=== PATIENT | male | born 1945 | race Caucasian/White ===

== ENCOUNTER 2017-01-25 21:47 | Emergency (ER) | payer MEDICARE, OTHER ==
[~2017-01-25] VITALS: Ht 177.8 cm; Wt 100.7 kg
[~2017-01-25 21:47] MED LIST: CITA20TA5 PO; CRESTOR20 MG PO; DICL75TA PO; FISH1CAP PO; FLUT50DI IH; GLIM1TAB2 PO; GLUC100018 PO; GLUC1TAB26 PO; HYDR25TA9 PO; LOSA100T6 PO; METF10002 PO; METF100P4 MC; METO100T2 PO; MULT1TAB52 PO; NIFE90TA9 PO; NITR0.4T SL; POTA10TA10 PO; SILD100T PO; TAMS0.4C2 PO; VITA1TAB19 PO
[2017-01-25 21:52] VITALS: BP 171/86
--- NOTE | 2017-01-25 22:22 | PHYS DOC ---
Past Medical History Past Medical History: Hypertension, Other Additional Past Medical Histor: BLIND IN RIGHT EYE, CANCER BEHIND R EYE Past Surgical History: Other Additional Past Surgical Histo: CARDIAC STENT Alcohol Use: Rarely Drug Use: None Adult General Chief Complaint Chief Complaint: HIP PAIN HPI HPI Patient is a 71 year old male history of sciatica, presents emergency room tonight with complaint that he is having persistent pain in the posterior aspect of his right hip that radiates down his right leg. Patient is due to see a foxing painter on Friday. He states that he had been prescribed hydrocodone to help with the pain. He states the hydrocodone is not been managing the pain. He states he does have a history of diabetes. He has not been on any steroids for this. I'll anesthesia or incontinence of urine and bowel. Review of Systems Review of Systems Constitutional: Denies fever or chills [] Eyes: Denies change in visual acuity, redness, or eye pain [] HENT: Denies nasal congestion or sore throat [] Respiratory: Denies cough or shortness of breath [] Cardiovascular: No additional information not addressed in HPI [] GI: Denies abdominal pain, nausea, vomiting, bloody stools or diarrhea [] : Denies dysuria or hematuria [] Musculoskeletal: Denies back pain or joint pain [] Integument: Denies rash or skin lesions [] Neurologic: Denies headache, focal weakness or sensory changes [] Endocrine: Denies polyuria or polydipsia [] Current Medications Current Medications Current Medications Medications (Trade) Dose Ordered Sig/[facility] Start Time Stop Time Status Last Admin Dose Admin Morphine Sulfate 10 mg 1X ONCE 01/25/17 23:00 01/25/17 23:01 01/25/17 22:26 10 MG Allergies Allergies Allergies Coded Allergies Type Severity Reaction Last Updated Verified Iodinated Contrast Media - Oral and Allergy Severe 09/11/15 Yes Penicillins Allergy Intermediate 03/16/14 Yes tomato Allergy Intermediate 09/11/15 Yes Physical Exam Physical Exam Constitutional: Well developed, well nourished,mild distress, non-toxic appearance. HENT: Normocephalic, atraumatic, bilateral external ears normal, oropharynx moist, no oral exudates, nose normal. [] Eyes: PERRLA, EOMI, conjunctiva normal, no discharge. [] Neck: Normal range of motion, no tenderness, supple, no stridor. [] Cardiovascular:Heart rate regular rhythm, no murmur [] Lungs & Thorax: Bilateral breath sounds clear to auscultation [] Abdomen: Bowel sounds normal, soft, no tenderness, no masses, no pulsatile masses. [] Skin: Warm, dry, no erythema, no rash. [] Back: Back and posterior right hip are normal in appearance without any skin lesions suggestive of shingles. There is tenderness to palpation of the patient' s back. There is tenderness to palpation at the level of S1 and S2 projecting laterally into the right buttocks. There is no palpable defect, deformity or spasm. Extremities: No tenderness, no cyanosis, no clubbing, ROM intact, no edema. [] Neurologic: Alert and oriented X 3, normal motor function, normal sensory function, no focal deficits noted. [] Psychologic: Affect normal, judgement normal, mood normal. [] Current Patient Data Vital Signs Vital Signs Date Time Temp Pulse Resp B/P Pulse Ox O2 Delivery O2 Flow Rate FiO2 01/25/17 22:26 16 98 Room Air 01/25/17 21:52 97.7 77 97.7 EKG EKG [] Radiology/Procedures Radiology/Procedures [] Course & Med Decision Making Course & Med Decision Making Patient is able to do with the [place] tablets that he currently has. I advised him that he can either use them at times from baseline pain or flush them down the toilet. He has been well advised not to combine pain medications together. Dragon Disclaimer Dragon Disclaimer This electronic medical record was generated, in whole or in part, using a voice recognition dictation system. Departure Departure Impression: Primary Impression: Sciatica Disposition: 01 HOME, SELF-CARE Condition: GOOD Referrals: FEDERICO WISE MD (PCP) Patient Instructions: Lumbosacral Radiculopathy Additional Instructions: 1. Take the medication as prescribed. Do not combine pain medications together as this can affect her heart and lung function and causing overdose. 2. Patient really review the discharge instructions provided for self-care and reasons to return to the emergency department. 3. Be sure to make your appointment on Friday with pain management. 4. Drink 8-10, 10 ounce glasses of water a day and use a fiber supplement such as Metamucil to help prevent constipation. Scripts Oxycodone/Apap 5-325 (Percocet 5-325 Mg Tablet)1 Each Tablet1-2 Tab PO Q6HRS # 20 TAB Prov:HAI FELDER 01/25/17 Problem Qualifiers Primary Impression: Sciatica Laterality: right Qualified Code: M54.31 - Sciatica, right side HAI FELDER Jan 25, 2017 22:22
[2017-01-25] MEDS ORDERED: OXYC-323 PO (22:35)
[2017-01-25] MEDS ORDERED: MORPHINE SULFATE 10 MG/ML VIAL. IM ONE (23:00)
[2017-01-27] MEDS ORDERED: LOVA20TA2 PO (10:26)
[2017-01-27] MEDS ORDERED: GABA-585 PO (10:26)
== END 2017-01-25 22:40 | disposition home or self-care (01) ==
LOC: ER 21:47
DX: M54.31 Sciatica, right side (principal); E11.9 Type 2 diabetes mellitus without complications; I10 Essential (primary) hypertension; H54.41 Blindness, right eye, normal vision left eye; Z88.0 Allergy status to penicillin; Z91.018 Allergy to other foods; Z95.5 Presence of coronary angioplasty implant and graft; Z91.041 Radiographic dye allergy status; Z79.891 Long term (current) use of opiate analgesic
CPT/HCPCS: 96372; 99283; J2270

== ENCOUNTER → 2017-01-27 | Outpatient (CLI) | payer MEDICARE, OTHER ==
[2017-01-25 21:52] VITALS: BP 171/86
[~2017-01-27] MED LIST changes: +GABA-585 PO; +IOHEXOL 180 MG/ML 10 ML VIAL. ONE; +LOVA20TA2 PO; +OXYC-323 PO; +methylPREDNISolone ACETATE 40 MG/ML VIAL. ONE; +methylPREDNISolone ACETATE 80 MG/ML VIAL. ONE
--- NOTE | 2017-01-28 02:18 | PAIN ---
DATE OF SERVICE: 01/27/2017 DIAGNOSES: Lumbar radiculopathy with lumbar spinal stenosis and post-lumbar laminectomy syndrome. HISTORY OF PRESENT ILLNESS: The patient is a 71-year-old male who returns for followup, last seen in 07/2015. The patient underwent caudal epidural steroid injection at that time with 80-90% improvement with very good pain relief since that time. The patient had a flare-up pain about a year ago, but the pain resolved after some physical therapy exercises he was doing. The patient reports that now the pain has returned over the past several weeks in the low back and right lower extremity significantly radiating to the posterior thigh, lateral thigh, anterior thigh, posterior lower leg, lateral lower leg and ankle with some swelling in the ankle as well on the right side, significantly tender to the point where he went to the Emergency Department 2 days ago, got an IM morphine injection, which did help decrease the pain, but for the last 3 weeks, it has been significantly painful and more in the right leg than it was previously. The patient reports no new motor or sensory deficits, no new bowel or bladder incontinence, but significant pain rated as an 8-9 on a scale of 10, constant, sharp, radiating pain in the low back and right leg. As previously, it has been increasing with activity, waking him up from sleep at least twice a night and limiting most of his mobility, especially walking and driving a car. The patient has not been using a cane, but has significant difficulty with ambulation with the recent increase in pain without any specific injury or accident that he is aware of. The patient did have MRI scan about again 1 year ago in 02/2016, showing similar findings from a previous film in 06/2015 with left greater than right lateral recess stenosis at L4-L5 with contact to descending L5 nerve roots, contact to descending left S1 nerve root at L5-S1 by protrusion and again left laminectomy previously at L5-S1; degenerative disk disease, greatest at L5-S1, to a lesser degree at L4-L5 and L3-L4. PAST MEDICAL HISTORY: Significant for diabetes type 2, hearing loss; hypercholesterolemia; melanoma of the right eye, diagnosed in 2010; coronary artery disease. PAST SURGICAL HISTORY: Previous surgeries include lipomas in 1970 repair in 2000, lumbar laminectomy and diskectomy in 2004 and melanoma excision from right optic nerve in 2011, previous tonsillectomy as a child. FAMILY HISTORY: Significant for COPD, myocardial infarction, breast cancer in a sister and jaw cancer in grandfather. SOCIAL HISTORY: The patient quit smoking in 1976, drinks alcohol only very rarely. He is and lives with his spouse, has one child at home. 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 CURRENT MEDICATIONS: Include multivitamins, diclofenac, Nitrostat, Viagra, potassium chloride, hydrochlorothiazide, metoprolol, Flovent, oxycodone, fish oil, gabapentin, lovastatin, glucosamine, tamsulosin, glimepiride, losartan, citalopram, metformin and nifedipine. ALLERGIES: THE PATIENT ALLERGIC TO LIPITOR, PENICILLIN AND TOMATOES. REVIEW OF SYSTEMS: The patient's review of systems is positive for those items mentioned in the history of present illness and is complete, full and well documented on the patient's chart. All systems reviewed and otherwise negative. PHYSICAL EXAMINATION: VITAL SIGNS: Today, the patient's blood pressure is 134/87, pulse 66, respirations are 20, temperature is 97.5 degrees Fahrenheit, height is 5 feet 11 inches, weighs 223 pounds. GENERAL: The patient is awake, alert, oriented, appropriate, very pleasant demeanor. HEENT: Shows normocephalic and atraumatic with right eye difference in pigmentation compared to the left and some slight exophthalmus. Oral cavity shows mucous membranes moist and pink. Dentition is intact. NECK: Shows anterior throat supple without palpable lymphadenopathy noted. Swallow reflex is symmetrical. Neck shows full rotational motion of the cervical spine without difficulty or tenderness. CHEST: Shows normal on inspection. Breath sounds clear to auscultation bilaterally. HEART: Shows S1 and S2 clear. No murmurs auscultated. ABDOMEN: Soft, nontender, nondistended. No palpable organomegaly is noted. No new rebound or guarding demonstrated. BACK: Shows spine grossly in midline, slight flattening of the lumbar lordotic curvature, but normal thoracic kyphotic curvature. Lumbar previously well-healed surgical scarring is noted. Lumbar paraspinous musculature shows symmetrical on inspection with palpation; some significant tenderness in the middle and lower distribution bilaterally with even moderate palpation; very firm, very tender musculature bilaterally without significant radiation. No tenderness over the sacrum or sacroiliac regions with palpation. The patient does show good rotational motion of the lumbar spine both laterally as well as extension and flexion without exacerbation of pain. EXTREMITIES: Lower extremities show deep tendon reflexes at 2+ in the patellar, 1+ tendo calcaneus tendons. Motor exam is strong with 5/5 dorsiflexion, extension, quadriceps and hamstring flexion and equal with some mild right-sided foot drop with extension and flexion, but intact with approximately 3-4/5 muscle strength compared to 5/5. Peripheral pulses are 1+, posterior tibial and dorsalis pedis pulses. No peripheral edema is noted. No clubbing, no cyanosis. Lower extremities are warm and dry to touch, equal in color and appearance. The patient is able to stand, stand on his toes. Has some difficulty with ambulating, is favoring his right lower extremity to a significant extent with a fair amount of limp with ambulation, but not using any assistive devices. Options were discussed with the patient at that time. The patient's old chart was reviewed as his current medication regimen and updated. Current review of systems updated today as well as previously noted. We will plan on a caudal approach epidural steroid injection today. He has done very well with these in the past. Risks were again discussed including but not limited to bleeding, infection, possibility of epidural hematoma, subsequent neurologic compromise, dural puncture, headaches, spinal cord and/or nerve damage, side effects of steroid medication and poor results regarding pain control. The patient understands and wishes to proceed. The patient will return to clinic in approximately 2 weeks for followup, was counseled on return appointment, activity level and side effects to be aware of. DIAGNOSES: Lumbar radiculopathy with lumbar spinal stenosis and post-lumbar laminectomy syndrome. PROCEDURE: Caudal-approach epidural steroid injection using C-arm fluoroscopic guidance under sterile prep and drape using local anesthetic. MEDICATIONS INJECTED: Depo-Medrol 120 mg plus 10 mL of preservative-free normal saline and 2 mL of Isovue for contrast. CONDITION AT DISCHARGE: Stable. The patient tolerated the procedure well, had no complications. TOREY ALANIZ MD DR: PAO/terri JOB#: [id number] / [id number]
== END | disposition home or self-care (01) ==
LOC: PNCL 09:46
PROVIDERS: ATTEND Anesthesiology
DX: M48.06 Spinal stenosis, lumbar region (principal); M54.16 Radiculopathy, lumbar region; M96.1 Postlaminectomy syndrome, not elsewhere classified; E78.00 Pure hypercholesterolemia, unspecified; I25.10 Atherosclerotic heart disease of native coronary artery without angina pectoris; E11.9 Type 2 diabetes mellitus without complications; H91.90 Unspecified hearing loss, unspecified ear; I10 Essential (primary) hypertension; M19.90 Unspecified osteoarthritis, unspecified site
CPT/HCPCS: 62323; J1030; J1040

== ENCOUNTER → 2017-02-05 | Outpatient (CLI) | payer MEDICARE, OTHER ==
[2017-01-25 21:52] VITALS: BP 171/86
[~2017-02-05] MED LIST changes: +GADOBUTROL 10 MMOL/10 ML VIAL IV ONE
--- NOTE | 2017-02-05 11:20 | KCIC ---
PROCEDURE MRI of the lumbar spine without and with contrast 02/05/2017 HISTORY History of low back pain which radiates down the right leg for 6 weeks with a history of lumbar stenosis and previous lumbar spine surgery. TECHNIQUE Unenhanced T1 weighted and T2 weighted sagittal and axial inversion recovery sagittal images of the lumbar spine were obtained. After the intravenous administration of 10 cc of Gadavist, enhanced T1 weighted sagittal and axial images of the lumbar spine were obtained. FINDINGS Comparison study is dated 03/22/2016. Very mild S-shaped curvature of the thoracolumbar spine is seen. Degenerative signal changes are seen involving all of the discs of the lumbar spine. Degenerative signal changes are seen within the marrow surrounding these discs. Loss of height of the L3-4, L4-5 and L5-S1 discs is noted. Hemangiomas are seen scattered throughout the lower thoracic and lumbar vertebral bodies. These measure 3 millimeters to 1.7 centimeters in size. A few small rounded areas of increased signal intensity are seen on the T2 weighted images involving the right kidney. These measure 2 millimeters to 5 millimeters in size. They likely represent cysts. At the L1-2 and L2-3 disc spaces there are mild generalized disc bulges. Degenerative changes are seen involving the facet joints bilaterally. There is mild ligamentum flavum hypertrophy bilaterally. These findings do not result in significant central spinal canal or neural foraminal stenosis. At the L3-4 disc space there is a moderate generalized disc bulge. Superimposed on this disc bulge is a right paracentral/lateral focal disc herniation which extrudes inferiorly as a large disc fragment. This measures 2.5 x 1.5 x 1.2 centimeters in craniocaudal, transverse and AP dimensions. This extrudes throughout the L4 level. These findings when combined with prominence of the posterior epidural fat result in moderate to severe right greater than left central spinal canal stenosis at L3-4. No neural foraminal stenosis is seen. The extruded free disc fragment result in severe right lateral central spinal canal stenosis throughout the superior and mid L4 level. It appears to impinge upon the right L4 nerve root within the right lateral aspect of the central spinal canal. At the L4-5 disc space there is a moderate generalized disc bulge. Superimposed on this disc bulge is a right paracentral focal disc herniation which extrudes inferiorly as a free disc fragment. This measures 2.0 x 0.9 x 0.8 centimeters in craniocaudal, transverse and AP dimensions. This extrudes to the inferior aspect of the L5 vertebral body. These findings when combined with prominence of the posterior epidural fat result in moderate to severe central spinal canal stenosis L4-5. Mild bilateral neural foraminal stenosis is seen. The etruded disc fragment results in moderate to severe right lateral stenosis throughout the majority of the L5 level. This may impinge to some degree upon the right L5 nerve root within the right lateral aspect of the central spinal canal. At the L5-S1 disc space the patient is status post left hemilaminectomy. There is a mild to moderate generalized disc bulge which is eccentric to the left. Superimposed on the disc bulge is a left paracentral focal disc protrusion. This measures 4 millimeters in AP diameter. Degenerative changes are seen involving the facet joints bilaterally. These findings when combined do not result in significant central spinal canal stenosis. Mild bilateral neural foraminal stenosis is seen. The extruded free disc fragments at L3-4 and L4-5 are new since the previous examination. IMPRESSION 1. Status post left hemilaminectomy at L5-S1. 2. The changes of degenerative disc disease are seen throughout the lumbar spine. These findings result moderate to severe right greater than left central spinal canal stenosis at L3-4 and moderate to severe central spinal canal stenosis at L4-5. Mild bilateral neural foraminal stenosis is seen at L4-5 and L5-S1. Large right paracentral extruded disc fragments are seen at L3-4 and L4-5 which result in severe right lateral central spinal canal stenosis throughout the superior and mid L4 level and moderate to severe right lateral central spinal canal stenosis throughout the majority of the L5 level. These extruded disc fragments appear to impinge to varying degrees upon the right L4 and right L5 nerve roots as outlined above. They are new since the previous examination. Electronically signed by: Ferny River MD (Feb 05, 2017 11:19:05)
== END | disposition home or self-care (01) ==
LOC: KCIC MRI 09:06
PROVIDERS: ATTEND Family Medicine
DX: M51.36 Other intervertebral disc degeneration, lumbar region (principal)
CPT/HCPCS: 72158; 82565; A9585

== ENCOUNTER → 2017-02-06 | Outpatient (CLI) | payer MEDICARE ==
[2017-01-25 21:52] VITALS: BP 171/86
[~2017-02-06] MED LIST changes: -GADOBUTROL 10 MMOL/10 ML VIAL IV ONE; -IOHEXOL 180 MG/ML 10 ML VIAL. ONE; -methylPREDNISolone ACETATE 40 MG/ML VIAL. ONE; -methylPREDNISolone ACETATE 80 MG/ML VIAL. ONE
--- NOTE | 2017-02-07 03:40 | PAIN ---
DATE OF SERVICE: 02/06/2017 DIAGNOSES: Lumbar radiculopathy with lumbar spinal stenosis and post-lumbar laminectomy syndrome. HISTORY OF PRESENT ILLNESS: The patient is a 71-year-old male, who returns for followup status post caudal approach epidural steroid injection x 1 on 01/27/2017. The patient reports he did well initially, but only about 10% overall improvement of pain in low back, right lower extremity radiating as it was posterior gluteus, posterior thigh, posterior lower leg lateral lower leg and lateral thigh constant severe aching, dull tight, shooting pain anywhere from 7 to 9 on a scale of 10, worse with activity, standing, walking, changing positions, still has some difficulty with sleeping at night, better with sitting. The patient reports no new motor or sensory deficits, no new bowel or bladder incontinence, but still significant pain as noted. PHYSICAL EXAMINATION: VITAL SIGNS: The patient's blood pressure 164/69, pulse 55, respirations are 18, temperature 98.1 degrees Fahrenheit. Height is 5 feet 10 inches, weighs 2-3 pounds. GENERAL: The patient is awake, alert, oriented, appropriate, very pleasant demeanor. HEENT: Head shows normocephalic, atraumatic. Extraocular movements are intact and symmetrical. Oral cavity shows mucous membranes moist and pink. Dentition is intact. NECK: Shows anterior throat supple without palpable lymphadenopathy noted. Swallow reflex is symmetrical. CHEST: Shows normal on inspection. Breath sounds clear to auscultation bilaterally. HEART: Shows S1 and S2 clear. ABDOMEN: Soft, nontender, nondistended. No palpable organomegaly is noted. No rebound or guarding demonstrated. BACK: Shows spine grossly midline, some flattening of lumbar lordotic curvature is again appreciated well-healed surgical scar in the lumbar distribution. Paraspinous musculature ____ appears symmetrical with palpation, it is moderately tender, but firm, equal and symmetrical bilaterally. The patient reports no tenderness over the sacrum with palpation over the sacroiliac regions. EXTREMITIES: Lower extremities show deep tendon reflexes at 2+ in the patellar tendons. Motor exam is strong with approximately 3 to 4 on a scale of 5 with the left ankle and 5/5 with the right ankle and 5/5 with the right and the left quadriceps and hamstrings. Options were discussed with the patient. At this time, the patient's old chart was reviewed and his current medication regimen updated. Current review of systems updated today as well. We will proceed with a caudal approach epidural steroid injections, the second in this series with fluoroscopic guidance. Risks were again discussed including, but not limited to bleeding, infection, possibility of epidural hematoma, subsequent neurologic compromise, dural punctures, headaches, spinal cord and/or nerve damage, side effects of steroid medication and poor results regarding pain control. The patient understands and wishes to proceed. The patient will return to clinic in approximately 2 weeks for followup, was counseled as to return appointment and activity level and side effects to be aware of. DIAGNOSES: Lumbar radiculopathy with lumbar spinal stenosis and post-lumbar laminectomy syndrome. PROCEDURE: Lumbar epidural steroid injection, caudal approach using sharp fluoroscopic guidance under sterile prep and drape using local anesthetic. MEDICATION INJECTED: Depo-Medrol 120 mg plus 10 mL of preservative-free normal saline use Isovue for contrast. CONDITION AT DISCHARGE: Stable. The patient tolerated procedure well, had no complications. TOREY ALANIZ MD DR: PAO/terri JOB#: [id number] / [id number]
== END | disposition home or self-care (01) ==
LOC: PNCL 09:54
PROVIDERS: ATTEND Anesthesiology
DX: M48.06 Spinal stenosis, lumbar region (principal); M54.16 Radiculopathy, lumbar region; M96.1 Postlaminectomy syndrome, not elsewhere classified; I25.10 Atherosclerotic heart disease of native coronary artery without angina pectoris; E78.00 Pure hypercholesterolemia, unspecified; I10 Essential (primary) hypertension; M19.90 Unspecified osteoarthritis, unspecified site; E11.9 Type 2 diabetes mellitus without complications
CPT/HCPCS: 62323

== ENCOUNTER → 2017-03-03 | Outpatient (CLI) | payer MEDICARE, OTHER ==
[~2017-03-03] MED LIST changes: +DOCU-27 PO; +HYDR-2762 PO; +METF-620 PO; -METF10002 PO; +METF500T4 PO; +METH750T2 PO; -POTA10TA10 PO; +POTA10TA12 PO
[2017-03-03 15:23] LABS: BASO % 1 % (0-3); EOS % 3 % (0-3); HEMATOCRIT 38.1 % (39.0-53.0); HEMOGLOBIN 13.2 g/dL (13.0-17.5); LYMPH # 1.5 x10^3/uL (1.0-4.8); LYMPH % 22 % (24-48); MEAN CORPUSCULAR HEMOGLOBIN 30 pg (25-35); MEAN CORPUSCULAR HGB CONC 35 g/dL (31-37); MEAN CORPUSCULAR VOLUME 87 fL (79-100); MONO % 13 % (0-9); NEUT % 61 % (31-73); PLATELET COUNT 203 x10^3/uL (140-400); RED BLOOD COUNT 4.38 x10^6/uL (4.30-5.70); RED CELL DISTRIBUTION WIDTH 13.6 % (11.5-14.5); WHITE BLOOD COUNT 6.7 x10^3/uL (4.0-11.0)
[2017-03-03 15:50] LABS: ALBUMIN 3.7 g/dL (3.4-5.0); CALCIUM 8.8 mg/dL (8.5-10.1); CREATININE 1.5 mg/dL (0.7-1.3); GFR 46.3; POTASSIUM 3.3 mmol/L (3.5-5.1); TOTAL BILIRUBIN 0.5 mg/dL (0.2-1.0); TOTAL PROTEIN 7.3 g/dL (6.4-8.2)
== END | disposition home or self-care (01) ==
LOC: SURGPAT 14:00
PROVIDERS: ATTEND Neurological Surgery
DX: M51.26 Other intervertebral disc displacement, lumbar region (principal); M48.06 Spinal stenosis, lumbar region
CPT/HCPCS: 36415; 80053; 83036; 85027; 87641

== ENCOUNTER 2017-03-07 07:17 | Observation (INO) | payer MEDICARE, OTHER ==
--- NOTE | 2017-03-06 12:06 | HP ---
ADMIT DATE: HISTORY OF PRESENT ILLNESS: The patient is a pleasant 72-year-old man who is having difficulty with low back pain and pain with radiation to the right leg. The pain tends to radiate into his right buttock, hip, posterior right thigh, and into the anterior lateral lower leg. He states occasionally there is pain in the anterior right leg. The problem began about 8 weeks ago. He said he went to the Emergency Room a month ago because of his severe pain. The problem started without inciting event. He rates his pain as an 8 out of 10. The pain is constant and increased with activities. He states it delays down ____ increased slightly. He takes gabapentin and Percocet to help with the pain. In 2001, he underwent a lumbar surgery for a problem on the left side and developed left footdrop which only slowly improved afterwards. He has had 2 epidural steroid injections without help. He has had physical therapy which he is currently involved in, but it is not helping. PAST MEDICAL HISTORY: Arthritis, gout, cold sores, cancer, hypertension, radiation treatments, shingles, swelling of limbs, and tumors in growth. PAST SURGICAL HISTORY: Hernia in 2000, melanoma in 2001, heart in 2001, back pain in 2001, and cancer in the year 2005. FAMILY HISTORY: Noncontributory. SOCIAL HISTORY: Retired. . Rarely exercises. Denies substance abuse. Denies current tobacco use. Quit greater than 10 years ago. Drinks alcohol one to two times per year. He drinks coffee, tea, and soda daily. ALLERGIES: PENICILLIN. CURRENT MEDICATIONS: Citalopram, gabapentin, lovastatin, nifedipine, diclofenac, fluticasone propionate, metoprolol, hydrochlorothiazide, and potassium chloride. ER tabs, metformin, losartan, potassium, Viagra, glimepiride, multivitamin, fish oil, glucosamine, and Percocet. REVIEW OF SYSTEMS: A 12-point review of systems was obtained and is noncontributory except that mentioned above. PHYSICAL EXAMINATION: GENERAL APPEARANCE: Alert, pleasant, in no acute distress. HEAD: Normocephalic and atraumatic. SKIN: Warm and dry. Well-healed lumbar incision. MUSCULOSKELETAL: Lumbar paraspinal muscle bulk is normal, restricted range of motion of lumbar spine, [id number] tenderness of lower lumbar spine with palpation, normal range of motion of the lower extremities bilaterally. EXTREMITIES: No clubbing, cyanosis, or edema. NEUROLOGIC: Alert and oriented x3, normal recent and remote memory, strength 5 out of 5 in bilateral lower extremities, sensory was intact to light touch in bilateral lower extremities except for decrease in the anterolateral right leg, reflexes were trace and symmetric in the lower extremities bilaterally, negative straight leg raising on the left, positive straight leg raising on the right with pain in his back, right buttock, and posterolateral thigh pain, and antalgic gait favoring the right leg. IMAGING REVIEWED: I reviewed a lumbar MRI scan. On that study at L3-L4, there is moderate to severe posterior disk bulging with the right paracentral lateral focal disk herniation with extruded inferiorly and is a large fragment. The disk herniation is associated with [id number] right greater than left central canal stenosis at L3-L4. It also resulted in severe right lateral central canal stenosis compresses the right L4 root. At L4-L5, there is again moderate disk bulging and again superimposed on his right paracentral disk herniation which extruded inferiorly as a free fragment and extrudes inferiorly to the inferior aspect of L5 vertebral body. This again is associated with moderate to severe central canal stenosis and severe right lateral recess stenosis. At L5-S1, there are postoperative changes on the left. ASSESSMENT: 1. Intervertebral disk disorders with radiculopathy, lumbar region. 2. Spinal stenosis of lumbar region. PLAN: He has a bulging disk and large herniated disk with extruded fragments at both L3-L4 and L4-L5. There is moderately severe stenosis at both levels with severe lateral recess stenosis and nerve root compression. He should undergo a 2-level lumbar micro-decompressive operation. He has failed conservative measures which include epidural steroid injections and physical therapy. His pain is severe. I discussed with him surgery and the risks involved. He understands. He would like to go ahead. We will make the arrangements. REINA OLIVARES MD DR: BRENDEN/terri JOB#: [id number] / [id number]
[~2017-03-07] VITALS: Ht 180.3 cm; Wt 98.9 kg
[2017-03-07] VITALS (11 sets, daily range): BP systolic 133–153; BP diastolic 62–82
[~2017-03-07 07:17] MED LIST changes: +BACITRACIN 50,000 UNIT in IV NORMAL SALINE 1000ML BAG 1,000 ML IRR ONE; +BUPIVAC MPF-EPI 0.5%-1:200000 30 ML VIAL. ONE; -DOCU-27 PO; +GELATIN SPONGE SIZE 100. ONE; -HYDR-2762 PO; +HYDROmorphone 2 MG/ML VIAL IV PRN; +IV RINGERS,LACTATED 1000ML 1,000 ML IV SCH; +KETOROLAC 60 MG/2 ML INJ FOR OR. ONE; +LIDOCAINE 1% 1 ML SYRINGE. ID PRN; -METF500T4 PO; -METH750T2 PO; +MORPHINE SULFATE 2 MG/ML DISP.SYRIN. IV PRN; +ONDANSETRON PF 4 MG/2 ML VIAL. IV PRN; +PROCHLORPERAZINE 10 MG/2 ML VIAL. IV PRN; +THROMBIN TOPICAL 20,000 UNIT SPRAY.SYRN KIT TP ONE; +VANCOMYCIN 1GM IVPB FOR OMNI 250 ML IV ONE; +fentaNYL PF VIAL 100 MCG/2 ML VIAL IV PRN
[2017-03-07] MEDS ORDERED: SCOPOLAMINE 1.5MG PATCH. TD SCH (08:00)
[2017-03-07] MEDS ORDERED: ONDANSETRON PF 4 MG/2 ML VIAL. ONE (08:04)
[2017-03-07] MEDS ORDERED: PROPOFOL 50 ML IV ONE ×2 (08:04→09:44)
[2017-03-07] MEDS ORDERED: REMIFENTANIL 2 MG VIAL. IV ONE (08:04)
[2017-03-07] MEDS ORDERED: LIDOCAINE 2% 100 MG/5 ML SYRINGE. ONE (08:04)
[2017-03-07] MEDS ORDERED: PHENYLEPHRINE in 0.9% NACL PF 1 MG/10 ML DISP.SYRIN. IV ONE (08:04)
[2017-03-07] MEDS ORDERED: PROPOFOL 20 ML IV ONE (08:04)
[2017-03-07] MEDS ORDERED: DEXAMETHASONE SOD PHOS 20 MG/5 ML VIAL. ONE (08:04)
[2017-03-07] MEDS ORDERED: ePHEDrine PF IN SALINE 50 MG/5 ML DISP.SYRIN IV ONE (08:04)
[2017-03-07] MEDS ORDERED: fentaNYL PF VIAL 100 MCG/2 ML VIAL ONE (08:05)
[2017-03-07] MEDS ORDERED: ROCURONIUM 50 MG/5 ML VIAL. ONE (08:05)
[2017-03-07] MEDS ORDERED: SUCCINYLCHOLINE 200 MG/10 ML VIAL. ONE (08:06)
[2017-03-07 08:23] LABS: POTASSIUM 3.3 mmol/L (3.5-5.1)
[2017-03-07] MEDS ORDERED: FAMOTIDINE 20 MG/2 ML VIAL ONE (09:07)
[2017-03-07] MEDS ORDERED: NEOSTIGMINE METHYLSULFATE 5 MG/5 ML SYRINGE. ONE (09:08)
[2017-03-07] MEDS ORDERED: GLYCOPYRROLATE 1 MG/5 ML VIAL. ONE (09:08)
[2017-03-07] MEDS ORDERED: DESFLURANE > 120 MINUTES IH ONE (10:19)
[2017-03-07] MEDS: fentaNYL PF VIAL 100 MCG/2 ML VIAL IV PRN ×2 (12:47→12:59)
[2017-03-07] MEDS ORDERED: POTASSIUM CL 20MEQ D5-0.45NACL 1,000 ML IV PRN (13:24)
[2017-03-07] MEDS ORDERED: fentaNYL PF VIAL 100 MCG/2 ML VIAL IV PRN (13:30)
[2017-03-07] MEDS ORDERED: diphenhydrAMINE HCL 25 MG CAPSULE PO PRN (13:30)
[2017-03-07] MEDS ORDERED: MAG HYDROX/ALUMINUM HYD/SIMETH 30 ML ORAL.SUSP PO PRN (13:30)
[2017-03-07] MEDS ORDERED: diphenhydrAMINE 50 MG/ML VIAL IV PRN (13:30)
[2017-03-07] MEDS ORDERED: CALCIUM CARBONATE 500 MG TAB.CHEW PO PRN (13:30)
[2017-03-07] MEDS ORDERED: HYDROcodone/APAP 7.5/325MG 1 TAB TABLET PO PRN ×2 (13:30)
[2017-03-07] MEDS ORDERED: ACETAMINOPHEN 325 MG TABLET. PO PRN (13:30)
[2017-03-07] MEDS ORDERED: NITROGLYCERIN SUBLINGUAL 0.4 MG BOTTLE OF 25. SL PRN (13:30)
[2017-03-07] MEDS ORDERED: 0.9 % SODIUM CHLORIDE 10 ML DISP.SYRIN. IV PRN (13:30)
[2017-03-07] MEDS ORDERED: MAGNESIUM HYDROXIDE 2,400 MG/30 ML ORAL.SUSP. PO PRN (13:30)
[2017-03-07] MEDS: METHOCARBAMOL 750 MG TABLET PO SCH ×2 (14:54→20:58)
[2017-03-07] MEDS: GABAPENTIN 100 MG CAPSULE. PO SCH ×2 (14:54→20:59)
[2017-03-07] MEDS: CITALOPRAM 20 MG TABLET. PO SCH ×2 (14:54→20:58)
--- NOTE | 2017-03-07 16:38 | OP ---
DATE OF SURGERY: 03/07/2017 PREOPERATIVE DIAGNOSES: 1. Herniated lumbar disk at L3-L4, right with inferior fragment. 2. Herniated disk at L4-L5, right with inferiorly herniated fragment with lumbar radiculopathy. POSTOPERATIVE DIAGNOSES: 1. Herniated lumbar disk at L3-L4, right with inferior fragment. 2. Herniated disk at L4-L5, right with inferiorly herniated fragment with lumbar radiculopathy. OPERATION PERFORMED: 1. Hemilaminotomy and microdiskectomy at L3-L4, right. 2. Hemilaminotomy and microdiskectomy at L4-L5, right. The operation was done with EMG monitoring, fluoroscopy, and microscopic dissection. PRODUCTION ASSEMBLER: Derrek Feliz MD, assisted with surgery, assisted with the exposure, and microdiskectomy at both levels as well as the closure. OPERATIVE INDICATIONS: The patient is a very pleasant 72-year-old man who developed intractable back and right leg pain which failed conservative measures. On imaging studies, he had a significant disk herniation at L3-L4 on the right side as well as L4-L5 on the right side. At both levels, there was a large inferior fragment. I recommended lumbar microsurgery. I spoke with him about the surgery, the risks, the technique, and the expected postoperative course. He understood the surgery, and he wished to go ahead. DESCRIPTION OF PROCEDURE: Following general endotracheal anesthesia, the patient was positioned prone on the Samuel table. His lumbar region was prepped and draped in standard fashion. JES hose and AV impulse boots were applied for DVT prophylaxis. A microscope was draped. Fluoroscopy was draped and brought into field. Monitoring was established. Vancomycin 1 gram was given. Using fluoroscopic guidance, incision was made from inferior L5 to the mid body of L3. I dissected down through the skin and subcutaneous tissue and reflected the paraspinal muscles and placed a [place] micro disk retractor. I brought in the microscope, and the remainder of the surgery was done with the microscope using microscopic technique. At L3-L4, I burred out a generous hemilaminotomy. I removed thickened ligamentum flavum and exposed the exiting L4 root performing a partial foraminotomy. There was a large subligamentous disk fragment beneath the root and below the level of the disk, and I incised the ligament and began to tease back disk fragments. This was somewhat of a chronic disk herniation and that the fragments were partly calcified, and removal was somewhat tedious with me gently pulling back fragment after fragment and then using the blunt hook to tease back gently and more fragments to remove. As I worked, however, the region became very well decompressed. I did pass the pituitary into the disk space, and I did perform a diskectomy. As I worked, the region became very well decompressed, and the nerve root which had been very tightly compressed at the initiation of surgery became very relaxed and pretty movable. At this level, 1 did use a bone wax during the operation as well as bipolar cautery for any bone bleeding and epidural veins, but hemostasis was not really a problem. I did perform a very generous inferior exposure to help allow me to remove the inferior fragments. I then moved down to L4-L5 in a similar fashion. I drilled a very generous hemilaminotomy. I trimmed away the ligamentum flavum. I performed a partial foraminotomy, and again there was bulging disk at the level of the L4-L5 disk on the right which did extend inferiorly. I incised the ligament annulus and performed a diskectomy. The disk was much more firm and rubbery at this level than at L3-L4 and appeared to be more chronic. I worked gently and tease back disk fragments in a similar fashion, removed multiple small fragments of disk, gradually decompressed this region. Some of the disks was very firm and calcified and was not removable. The majority was, but at any rate, as I worked, the root which had been significantly compressed at the initiation of surgery and not pretty movable became very relaxed and pretty movable following diskectomy. I did enter the disk space at this level as well, and I did perform a diskectomy from within the disk. At this point, then I explored carefully. The roots at both levels were very free. Hemostasis was excellent. I irrigated copiously. I removed the retractor, obtained hemostasis in the muscle, and I irrigated again and closed the wound in layers with absorbable suture. Skin was closed with 4-0 subcuticular stitch. The operation went very well. I was quite pleased with the surgery. REINA OLIVARES MD DR: BRENDEN/terri JOB#: [id number] / [id number]
[2017-03-07] MEDS: metFORMIN 500 MG TABLET PO SCH (17:39)
[2017-03-07] MEDS ORDERED: BUDESONIDE 0.5 MG/2 ML NEBU. NEB SCH (20:00)
[2017-03-07] MEDS: DICLOFENAC SODIUM 25 MG TABLET.DR PO SCH (20:58)
[2017-03-07] MEDS: METOPROLOL TART IMMED RELEASE 50 MG TABLET. PO SCH (20:59)
[2017-03-07] MEDS: DOCUSATE SODIUM 100 MG CAPSULE. PO SCH (20:59)
[2017-03-07] MEDS ORDERED: ATORVASTATIN CALCIUM 10 MG TABLET. PO SCH (21:00)
[2017-03-07] MEDS ORDERED: NON FORMULARY ITEM (Gluc/Chon-Msm#2/C/D3/Mang/Born (Glucosamin-Chondroitin-Msm Tab) 1 EACH PO SCH (21:00)
[2017-03-08 03:00] VITALS: BP 186/80
[2017-03-08 04:30] VITALS: BP 150/74
[2017-03-08 07:00] VITALS: BP 151/76
[2017-03-08] MEDS ORDERED: POTASSIUM CHLORIDE 10 MEQ TABLET.ER. PO SCH (08:00)
[2017-03-08] MEDS: DICLOFENAC SODIUM 25 MG TABLET.DR PO SCH (08:20)
[2017-03-08] MEDS: METHOCARBAMOL 750 MG TABLET PO SCH (08:23)
[2017-03-08] MEDS: metFORMIN 500 MG TABLET PO SCH (08:23)
[2017-03-08] MEDS: GABAPENTIN 100 MG CAPSULE. PO SCH (08:23)
[2017-03-08] MEDS: CITALOPRAM 20 MG TABLET. PO SCH (08:23)
[2017-03-08] MEDS: DOCUSATE SODIUM 100 MG CAPSULE. PO SCH (08:24)
[2017-03-08 08:30] VITALS: BP 151/76
[2017-03-08] MEDS: METOPROLOL TART IMMED RELEASE 50 MG TABLET. PO SCH (08:30)
--- NOTE | 2017-03-08 08:47 | DISCH ---
DISCHARGE INSTRUCTIONS Condition on Discharge Condition on Discharge: Stable Activity After Discharge Activity Instructions for Disc: Activity as tolerated, Avoid exertion Other activity instructions: no driving for a week Bathing Instructions: Shower-keep dressing dry Lifting Instructions after Dis: No heavy lifting, No pulling or pushing Diet after Discharge Additional Diet Restrictions: resume home diet Wound Incision Care Wound/Incision Care: Ice to area for comfort Other wound/incision instructi: may remove dressing in 48 hrs if dry then shower- no soaking Contacting the DRMariela after DC Call your doctor for: Concerns you may have Follow-Up Follow Up With: Dr. Olivares's nurse in 2 weeks [phone] REINA OLIVARES MD March 08, 2017 08:47
[2017-03-08] MEDS ORDERED: HYDR-2762 PO (08:50)
[2017-03-08] MEDS ORDERED: DOCU-27 PO (08:50)
[2017-03-08] MEDS ORDERED: METH750T2 PO (08:50)
[2017-03-08] MEDS ORDERED: LOSARTAN POTASSIUM 50 MG TABLET. PO SCH (09:00)
[2017-03-08] MEDS ORDERED: NON FORMULARY ITEM (Fluticasone Propionate (Flovent 50MCG Diskus) 50 MCG) IH SCH (09:00)
[2017-03-08] MEDS ORDERED: MULTIVITAMIN with MINERAL TABLET. PO SCH (09:00)
[2017-03-08] MEDS ORDERED: ISOSORBIDE MONONITRATE ER 30 MG TAB.ER.24H PO SCH (09:00)
[2017-03-08] MEDS ORDERED: GLIMEPIRIDE 2 MG TABLET. PO SCH (09:00)
[2017-03-08] MEDS ORDERED: hydroCHLOROthiazide 25 MG TABLET PO SCH (09:00)
[2017-03-08] MEDS ORDERED: OMEGA-3 FATTY ACIDS/FISH OIL 1,000 MG CAPSULE. PO SCH (21:00)
--- NOTE | 2017-03-11 10:41 | PATHOLOGY ---
PATHOLOGY REPORT * * * * * * * * FINAL DIAGNOSIS: Lumbar disc and decompression, removal: - Fragments of bone and fibrocartilage with focal degenerative changes. - Fragments of unremarkable skeletal muscle and adipose tissue. (SKM:shonna; d/t: 03/10/2017) REPORT ELECTRONICALLY SIGNED BY: Whitney Canseco M.D. DATE/TIME: 03/11/2017 10:35 * * * * * * * * GROSS PATHOLOGY: Received in formalin labeled "Siva Sauer, lumbar disc and decompression," are several pieces of glistening, fibrous tissue measuring 5.3 x 4.9 x 1.2 cm in aggregate dimensions admixed with bone. The tissue is submitted representatively in cassette A1. INITIAL CPT CODE(S): A; 46659 Professional services performed by [email or web address] [address] Technical services performed by [email or web address] at [address] [place] [address]. SPECIMEN(S) RECEIVED: A.Lumbar disc and decompression CLINICAL HISTORY: Lumbar herniated disc with radiculopathy, stenosis PATIENT: SIVA SAUER /AGE: 4 1945 (Age: 72) PATIENT #: [id number] ALT CASE #: SPECIMEN COLLECTION DATE: 03/07/2017 SPECIMEN RECEIVED DATE: 03/07/2017 [facility] - [address] [place] [address] - PHONE: [phone] * * * END OF REPORT * * *
== END 2017-03-08 11:06 | disposition home or self-care (01) ==
LOC: SURG 07:17 → 4 NORTH 12:15
PROVIDERS: ADMIT Neurological Surgery; ATTEND Neurological Surgery
DX: M51.16 Intervertebral disc disorders with radiculopathy, lumbar region (principal); M48.06 Spinal stenosis, lumbar region; M19.90 Unspecified osteoarthritis, unspecified site; M10.9 Gout, unspecified; I10 Essential (primary) hypertension; Z87.891 Personal history of nicotine dependence; Z85.820 Personal history of malignant melanoma of skin
CPT/HCPCS: 36415; 63030; 63035; 76000; 80051; 82947; 97116; 97162; G0378; G0379; J0330; J1100; J1885; J2270; J2405; J2704; J2710; J3010; J3370; J3490; J7030; S0028; J0690; J2370; J7120

== ENCOUNTER 2017-03-31 11:00 | Inpatient (IN) | payer MEDICARE, OTHER ==
[~2017-03-31] VITALS: Ht 177.8 cm; Wt 93.0 kg
[~2017-03-31 11:00] MED LIST changes: -BACITRACIN 50,000 UNIT in IV NORMAL SALINE 1000ML BAG 1,000 ML IRR ONE; -BUPIVAC MPF-EPI 0.5%-1:200000 30 ML VIAL. ONE; +DOCU-109 PO; -GELATIN SPONGE SIZE 100. ONE; +HYDR-2762 PO; -HYDROmorphone 2 MG/ML VIAL IV PRN; -IV RINGERS,LACTATED 1000ML 1,000 ML IV SCH; -KETOROLAC 60 MG/2 ML INJ FOR OR. ONE; -LIDOCAINE 1% 1 ML SYRINGE. ID PRN; +METH750T2 PO; -MORPHINE SULFATE 2 MG/ML DISP.SYRIN. IV PRN; -ONDANSETRON PF 4 MG/2 ML VIAL. IV PRN; -PROCHLORPERAZINE 10 MG/2 ML VIAL. IV PRN; -THROMBIN TOPICAL 20,000 UNIT SPRAY.SYRN KIT TP ONE; -VANCOMYCIN 1GM IVPB FOR OMNI 250 ML IV ONE; -fentaNYL PF VIAL 100 MCG/2 ML VIAL IV PRN
[2017-03-31 11:44] VITALS: BP 152/79
[2017-03-31] MEDS ORDERED: NITROGLYCERIN SUBLINGUAL 0.4 MG BOTTLE OF 25. SL PRN (12:30)
[2017-03-31] MEDS ORDERED: CALCIUM CARBONATE 500 MG TAB.CHEW PO PRN (12:30)
[2017-03-31] MEDS ORDERED: MAG HYDROX/ALUMINUM HYD/SIMETH 30 ML ORAL.SUSP PO PRN (12:30)
[2017-03-31] MEDS ORDERED: diphenhydrAMINE 50 MG/ML VIAL IV PRN (12:30)
[2017-03-31] MEDS ORDERED: 0.9 % SODIUM CHLORIDE 10 ML DISP.SYRIN. IV PRN (12:30)
[2017-03-31] MEDS ORDERED: diphenhydrAMINE HCL 25 MG CAPSULE PO PRN (12:30)
[2017-03-31] MEDS ORDERED: ACETAMINOPHEN 325 MG TABLET. PO PRN (12:30)
[2017-03-31] MEDS ORDERED: HYDROcodone/APAP 7.5/325MG 1 TAB TABLET PO PRN (12:30)
[2017-03-31] MEDS: CITALOPRAM 20 MG TABLET. PO SCH ×2 (12:56→21:11)
[2017-03-31] MEDS: DOCUSATE SODIUM 100 MG CAPSULE. PO SCH ×2 (12:56→21:11)
[2017-03-31] MEDS: metFORMIN 500 MG TABLET PO SCH ×2 (12:56→17:28)
--- NOTE | 2017-03-31 12:56 | HP ---
ADMIT DATE: 03/31/2017 HISTORY OF PRESENT ILLNESS: The patient is a pleasant 72-year-old man who had difficulty with intractable back and right leg pain and underwent lumbar surgery, which included a microdiskectomy at L3-L4 and L4-L5 on the right on 03/07/2017. He has had difficulty with drainage and cultures were obtained, which were positive for Staph aureus. He was initially placed on clindamycin and after sensitivities were reported, he was changed to Bactrim. He was started on Bactrim on 03/27/2017 and followed up in the office today. He denies fever or chills, but reports continued drainage and is changing his dressing twice a day. He is doing well with regard to pain. PAST MEDICAL HISTORY: Arthritis, gout, cancer with radiation treatments, hypertension, shingles and diabetes. PAST SURGICAL HISTORY: Hernia repair in 2000, a melanoma removal in 2001, cardiac stents in 2001. CURRENT MEDICATIONS: Listed on the MRAD and were reviewed. They include gabapentin, citalopram, lovastatin, nifedipine, diclofenac, fluticasone, metoprolol, hydrochlorothiazide, potassium, metformin, losartan, Viagra, glimepiride, multivitamin, fish oil, glucosamine, hydrocodone. ALLERGIES: PENICILLIN. FAMILY HISTORY: Noncontributory. SOCIAL HISTORY: Does not smoke. Retired, . REVIEW OF SYSTEMS: A 12-point review of systems was obtained and is noncontributory except that mentioned above. PHYSICAL EXAMINATION: GENERAL: Alert, pleasant, in no acute distress. SKIN: Warm and dry. MUSCULOSKELETAL: Range of motion of the lumbar spine is mildly restricted. There is no significant tenderness of the lower lumbar spine with palpation. Normal range of motion of the lower extremities bilaterally. EXTREMITIES: No clubbing, cyanosis or edema. NEUROLOGIC: He is alert and oriented x 3. Strength is 5/5 in the lower extremities, sensory was intact in the lower extremities bilaterally. BACK: The incision appears to be healing well at the superior and inferior portions of the incision, there is erythema. There was no active drainage, but a small amount of light yellow drainage on the dressing at the superior and inferior portions. ASSESSMENT AND PLAN: He continues to have significant drainage from his incision. We will admit him and obtain a lumbar CT scan and ask Infectious Disease to see him. REINA Kristopher OLIVARES MD DR: Rere JOB#: [id number] / [id number]
[2017-03-31 12:57] LABS: BASO # 0.1 x10^3/uL (0.0-0.2); BASO % 1 % (0-3); EOS % 2 % (0-3); HEMATOCRIT 33.7 % (39.0-53.0); HEMOGLOBIN 11.8 g/dL (13.0-17.5); LYMPH # 1.9 x10^3/uL (1.0-4.8); LYMPH % 23 % (24-48); MEAN CORPUSCULAR HEMOGLOBIN 30 pg (25-35); MEAN CORPUSCULAR HGB CONC 35 g/dL (31-37); MEAN CORPUSCULAR VOLUME 86 fL (79-100); MONO % 12 % (0-9); NEUT % 63 % (31-73); PLATELET COUNT 333 x10^3/uL (140-400); RED BLOOD COUNT 3.93 x10^6/uL (4.30-5.70); RED CELL DISTRIBUTION WIDTH 13.4 % (11.5-14.5); WHITE BLOOD COUNT 8.3 x10^3/uL (4.0-11.0)
[2017-03-31] MEDS: METOPROLOL TART IMMED RELEASE 50 MG TABLET. PO SCH ×2 (12:57→21:12)
[2017-03-31] MEDS: OMEGA-3 FATTY ACIDS/FISH OIL 1,000 MG CAPSULE. PO SCH ×2 (12:57→21:11)
[2017-03-31 13:05] LABS: ALBUMIN 3.5 g/dL (3.4-5.0); ALBUMIN/GLOBULIN RATIO 0.8 (1.0-1.7); CALCIUM 9.2 mg/dL (8.5-10.1); CREATININE 1.3 mg/dL (0.7-1.3); GFR 54.6; POTASSIUM 3.9 mmol/L (3.5-5.1); TOTAL BILIRUBIN 0.3 mg/dL (0.2-1.0); TOTAL PROTEIN 7.7 g/dL (6.4-8.2)
[2017-03-31] MEDS ORDERED: LOSARTAN POTASSIUM 50 MG TABLET. PO SCH (13:30)
[2017-03-31] MEDS ORDERED: hydroCHLOROthiazide 25 MG TABLET PO SCH (13:30)
--- NOTE | 2017-03-31 13:47 | RAD ---
CT of the lumbar spine without contrast, 03/31/2017: History: Postop wound infection, recent lumbar surgery Multidetector CT imaging was performed with multiplanar reconstructions produced. There are postlaminectomy changes on the right at L3-4 and L4-5. No fracture or destructive bony lesion is seen. There is streaky increased density in the subcutaneous soft tissues in the lower lumbar region compatible with nonspecific inflammation. No discrete well-defined fluid collection is seen to suggest abscess or a large hematoma. No significant abnormality is identified at the L1-2 disc level. At L2-3 there is minimal posterior annular bulging. There are mild degenerative changes involving the facet joints. No significant central spinal or foraminal stenosis is evident. At L3-4 there is a vacuum disc phenomena. There is moderate posterior disc bulging. There is mild posterior ligamentous thickening with a laminectomy defect on the right. The thecal sac is not clearly defined, however, there appears to be borderline central spinal stenosis at this level. At L4-5 the posterior disc margin and thecal sac are not clearly defined. There does appear to be mild posterior disc bulging. There is posterior ligamentous thickening on the left, with a laminectomy defect on the right. The combination of findings appears to be causing at least mild central spinal stenosis. At L5-S1 there is a vacuum disc phenomena. There is a small focal disc protrusion just to the left of midline. A small amount of gas is seen related to this density presumably representing extension of disc space gas through an annular tear. This is producing a mild left anterolateral defect upon the thecal sac. There are degenerative changes involving the facet joints with associated foraminal narrowing, most prominent medially on the right. There is a moderate size fecal impaction the rectum, incompletely visualized on these scans. IMPRESSION: 1. Postsurgical changes at L3-4 and L4-5. 2. Multilevel degenerative disc disease as delineated above. 3. Subcutaneous edema posteriorly in the lower lumbar spine without CT evidence of a discrete fluid collection to suggest abscess. MR scanning with gadolinium may be a more sensitive method of further evaluation, if clinically indicated. PQRS Compliance Statement: One or more of the following individualized dose reduction techniques were utilized for this examination: 1. Automated exposure control 2. Adjustment of the mA and/or kV according to patient size 3. Use of iterative reconstruction technique
[2017-03-31] MEDS ORDERED: GABAPENTIN 100 MG CAPSULE. PO SCH (14:00)
[2017-03-31] MEDS ORDERED: METHOCARBAMOL 750 MG TABLET PO SCH (14:00)
[2017-03-31 14:53] VITALS: BP 162/77
[2017-03-31 19:25] VITALS: BP 165/67
[2017-03-31] MEDS ORDERED: METF500T4 PO (19:34)
[2017-03-31] MEDS ORDERED: TAMS0.4C2 PO (19:34)
[2017-03-31] MEDS ORDERED: BUDESONIDE 0.5 MG/2 ML NEBU. NEB SCH (20:00)
[2017-03-31] MEDS ORDERED: NON FORMULARY ITEM (Gluc/Chon-Msm#2/C/D3/Mang/Born (Glucosamin-Chondroitin-Msm Tab) 1 EACH PO SCH (21:00)
[2017-03-31] MEDS ORDERED: DICLOFENAC SODIUM 25 MG TABLET.DR PO SCH (21:00)
[2017-03-31] MEDS: ATORVASTATIN CALCIUM 10 MG TABLET. PO SCH (21:11)
[2017-03-31 23:14] VITALS: BP 171/85
[2017-04-01 03:17] VITALS: BP 162/88
[2017-04-01 07:00] VITALS: BP 154/93
[2017-04-01] MEDS: GLIMEPIRIDE 2 MG TABLET. PO SCH (08:43)
[2017-04-01] MEDS: POTASSIUM CHLORIDE 10 MEQ TABLET.ER. PO SCH (08:43)
[2017-04-01] MEDS: DOCUSATE SODIUM 100 MG CAPSULE. PO SCH ×2 (08:43→21:00)
[2017-04-01] MEDS: metFORMIN 500 MG TABLET PO SCH ×3 (08:43→16:58)
[2017-04-01] MEDS: MULTIVITAMIN with MINERAL TABLET. PO SCH (08:43)
[2017-04-01] MEDS: CITALOPRAM 20 MG TABLET. PO SCH ×2 (08:44→21:14)
[2017-04-01] MEDS: METOPROLOL TART IMMED RELEASE 50 MG TABLET. PO SCH ×2 (08:44→21:16)
[2017-04-01] MEDS: OMEGA-3 FATTY ACIDS/FISH OIL 1,000 MG CAPSULE. PO SCH ×2 (08:44→21:14)
[2017-04-01] MEDS ORDERED: NON FORMULARY ITEM (Fluticasone Propionate (Flovent 50MCG Diskus) 50 MCG) IH SCH (09:00)
--- NOTE | 2017-04-01 09:28 | PDOC ---
Infectious Disease Note Vital Sign Vital Signs Vital Signs Date Time Temp Pulse Resp B/P (MAP) Pulse Ox O2 Delivery O2 Flow Rate FiO2 04/01/17 08:45 65 154/93 04/01/17 07:00 98.3 18 96 Room Air 98.3 Labs Lab Laboratory Tests Test 03/31/17 12:40 White Blood Count 8.3 x10^3/uL (4.0-11.0) Red Blood Count 3.93 x10^6/uL (4.30-5.70) Hemoglobin 11.8 g/dL (13.0-17.5) Hematocrit 33.7 % (39.0-53.0) Mean Corpuscular Volume 86 fL (79-100) Mean Corpuscular Hemoglobin 30 pg (25-35) Mean Corpuscular Hemoglobin Concent 35 g/dL (31-37) Red Cell Distribution Width 13.4 % (11.5-14.5) Platelet Count 333 x10^3/uL (140-400) Neutrophils (%) (Auto) 63 % (31-73) Lymphocytes (%) (Auto) 23 % (24-48) Monocytes (%) (Auto) 12 % (0-9) Eosinophils (%) (Auto) 2 % (0-3) Basophils (%) (Auto) 1 % (0-3) Neutrophils # (Auto) 5.2 x10^3uL (1.8-7.7) Lymphocytes # (Auto) 1.9 x10^3/uL (1.0-4.8) Monocytes # (Auto) 1.0 x10^3/uL (0.0-1.1) Eosinophils # (Auto) 0.2 x10^3/uL (0.0-0.7) Basophils # (Auto) 0.1 x10^3/uL (0.0-0.2) Erythrocyte Sedimentation Rate 63 (0-15) Sodium Level 136 mmol/L (136-145) Potassium Level 3.9 mmol/L (3.5-5.1) Chloride Level 100 mmol/L (98-107) Carbon Dioxide Level 28 mmol/L (21-32) Anion Gap 8 (6-14) Blood Urea Nitrogen 16 mg/dL (8-26) Creatinine 1.3 mg/dL (0.7-1.3) Estimated GFR (Cockcroft-Gault) 54.6 BUN/Creatinine Ratio 12 (6-20) Glucose Level 83 mg/dL (70-99) Calcium Level 9.2 mg/dL (8.5-10.1) Total Bilirubin 0.3 mg/dL (0.2-1.0) Aspartate Amino Transf (AST/SGOT) 26 U/L (15-37) Alanine Aminotransferase (ALT/SGPT) 68 U/L (16-63) Alkaline Phosphatase 90 U/L (46-116) Total Protein 7.7 g/dL (6.4-8.2) Albumin 3.5 g/dL (3.4-5.0) Albumin/Globulin Ratio 0.8 (1.0-1.7) Objective Assessment Post surgical lumbar spine infection with MSSA failed out pt 2 rounds of oral antibiotics HTN Arthritis Gout Plan Plan of Care Cefazolin PICC d/w in detail d/w dr Ag d/w SS to arrange home antibiotics SAEID LITTLE MD Apr 01, 2017 09:28
--- NOTE | 2017-04-01 09:30 | PDOC ---
PROGRESS NOTES Subjective Subjective no significant pain wound continues to drain Objective Objective Vital Signs Date Time Temp Pulse Resp B/P (MAP) Pulse Ox O2 Delivery O2 Flow Rate FiO2 04/01/17 08:45 65 154/93 04/01/17 07:00 98.3 18 96 Room Air 98.3 Intake and Output 04/01/17 07:00 Intake Total 780 ml Balance 780 ml Intake Oral 780 ml # Voids 2 Physical Exam General: Alert, Oriented X3, Cooperative, No acute distress MUSCULOSKELETAL: Other (NUNO) Neuro: Normal speech Psych/Mental Status: Mental status NL Skin: Other (erythema and drainage from inferior and superior portions of the incision) Plan Plan of Care labs noted Lumbar CT reviewed D/W Dr. Fry will start IV antibiotics, can dc when arrangements are made Comment Review of Relevant I have reviewed the following items kyler (where applicable) has been applied. Labs Laboratory Tests Test 03/31/17 12:40 White Blood Count 8.3 x10^3/uL (4.0-11.0) Red Blood Count 3.93 x10^6/uL (4.30-5.70) Hemoglobin 11.8 g/dL (13.0-17.5) Hematocrit 33.7 % (39.0-53.0) Mean Corpuscular Volume 86 fL (79-100) Mean Corpuscular Hemoglobin 30 pg (25-35) Mean Corpuscular Hemoglobin Concent 35 g/dL (31-37) Red Cell Distribution Width 13.4 % (11.5-14.5) Platelet Count 333 x10^3/uL (140-400) Neutrophils (%) (Auto) 63 % (31-73) Lymphocytes (%) (Auto) 23 % (24-48) Monocytes (%) (Auto) 12 % (0-9) Eosinophils (%) (Auto) 2 % (0-3) Basophils (%) (Auto) 1 % (0-3) Neutrophils # (Auto) 5.2 x10^3uL (1.8-7.7) Lymphocytes # (Auto) 1.9 x10^3/uL (1.0-4.8) Monocytes # (Auto) 1.0 x10^3/uL (0.0-1.1) Eosinophils # (Auto) 0.2 x10^3/uL (0.0-0.7) Basophils # (Auto) 0.1 x10^3/uL (0.0-0.2) Erythrocyte Sedimentation Rate 63 (0-15) Sodium Level 136 mmol/L (136-145) Potassium Level 3.9 mmol/L (3.5-5.1) Chloride Level 100 mmol/L (98-107) Carbon Dioxide Level 28 mmol/L (21-32) Anion Gap 8 (6-14) Blood Urea Nitrogen 16 mg/dL (8-26) Creatinine 1.3 mg/dL (0.7-1.3) Estimated GFR (Cockcroft-Gault) 54.6 BUN/Creatinine Ratio 12 (6-20) Glucose Level 83 mg/dL (70-99) Calcium Level 9.2 mg/dL (8.5-10.1) Total Bilirubin 0.3 mg/dL (0.2-1.0) Aspartate Amino Transf (AST/SGOT) 26 U/L (15-37) Alanine Aminotransferase (ALT/SGPT) 68 U/L (16-63) Alkaline Phosphatase 90 U/L (46-116) Total Protein 7.7 g/dL (6.4-8.2) Albumin 3.5 g/dL (3.4-5.0) Albumin/Globulin Ratio 0.8 (1.0-1.7) Laboratory Tests Test 03/31/17 12:40 White Blood Count 8.3 x10^3/uL (4.0-11.0) Red Blood Count 3.93 x10^6/uL (4.30-5.70) Hemoglobin 11.8 g/dL (13.0-17.5) Hematocrit 33.7 % (39.0-53.0) Mean Corpuscular Volume 86 fL (79-100) Mean Corpuscular Hemoglobin 30 pg (25-35) Mean Corpuscular Hemoglobin Concent 35 g/dL (31-37) Red Cell Distribution Width 13.4 % (11.5-14.5) Platelet Count 333 x10^3/uL (140-400) Neutrophils (%) (Auto) 63 % (31-73) Lymphocytes (%) (Auto) 23 % (24-48) Monocytes (%) (Auto) 12 % (0-9) Eosinophils (%) (Auto) 2 % (0-3) Basophils (%) (Auto) 1 % (0-3) Neutrophils # (Auto) 5.2 x10^3uL (1.8-7.7) Lymphocytes # (Auto) 1.9 x10^3/uL (1.0-4.8) Monocytes # (Auto) 1.0 x10^3/uL (0.0-1.1) Eosinophils # (Auto) 0.2 x10^3/uL (0.0-0.7) Basophils # (Auto) 0.1 x10^3/uL (0.0-0.2) Erythrocyte Sedimentation Rate 63 (0-15) Sodium Level 136 mmol/L (136-145) Potassium Level 3.9 mmol/L (3.5-5.1) Chloride Level 100 mmol/L (98-107) Carbon Dioxide Level 28 mmol/L (21-32) Anion Gap 8 (6-14) Blood Urea Nitrogen 16 mg/dL (8-26) Creatinine 1.3 mg/dL (0.7-1.3) Estimated GFR (Cockcroft-Gault) 54.6 BUN/Creatinine Ratio 12 (6-20) Glucose Level 83 mg/dL (70-99) Calcium Level 9.2 mg/dL (8.5-10.1) Total Bilirubin 0.3 mg/dL (0.2-1.0) Aspartate Amino Transf (AST/SGOT) 26 U/L (15-37) Alanine Aminotransferase (ALT/SGPT) 68 U/L (16-63) Alkaline Phosphatase 90 U/L (46-116) Total Protein 7.7 g/dL (6.4-8.2) Albumin 3.5 g/dL (3.4-5.0) Albumin/Globulin Ratio 0.8 (1.0-1.7) Medications Current Medications Citalopram Hydrobromide (CeleXA) 20 mg BID PO Last administered on 04/01/17 08: 44; Start 03/31/17 at 13:30 Docusate Sodium (Colace) 100 mg BID PO Last administered on 04/01/17 08:43; Start 03/31/17 at 13:30 Gabapentin (Neurontin) 100 mg TID PO ; Start 03/31/17 at 14:00; Stop 03/31/17 at 14:00; Status DC Hydrochlorothiazide (Hydrodiuril) 25 mg DAILY PO ; Start 03/31/17 at 13:30; Stop 03/31/17 at 18:09; Status DC Acetaminophen/ Hydrocodone Bitart (Lortab 7.5/325) 1 tab PRN Q6HRS PRN PO PAIN ; Start 03/31/17 at 12:30 Metformin HCl (Glucophage) 500 mg TIDWMEALS PO Last administered on 04/01/17 08 :43; Start 03/31/17 at 13:00 Methocarbamol (Robaxin) 750 mg TID PO ; Start 03/31/17 at 14:00; Stop 03/31/17 at 17:18; Status DC Nitroglycerin (Nitrostat) 0.4 mg PRN DAILY PRN SL CHEST PAIN; Start 03/31/17 at 12:30 Potassium Chloride (Klor-Con) 10 meq DAILY PO Last administered on 04/01/17 08: 43; Start 04/01/17 at 09:00 Diclofenac Sodium (Voltaren) 75 mg BID PO ; Start 03/31/17 at 21:00; Stop at 21:00; Status DC Fish Oil (Fish Oil) 1,000 mg BID PO Last administered on 04/01/17 08:44; Start 03/31/17 at 13:30 Non-Formulary Medication 50 mcg DAILY IH ; Start 04/01/17 at 09:00; Status UNV Glimepiride (Amaryl) 1 mg DAILY PO Last administered on 04/01/17 08:43; Start 04/01/17 at 09:00 Non-Formulary Medication 1 each BID PO ; Start 03/31/17 at 21:00; Status UNV Losartan Potassium (Cozaar) 100 mg DAILY PO ; Start 03/31/17 at 13:30; Stop at 18:09; Status DC Atorvastatin Calcium (Lipitor) 5 mg QHS PO Last administered on 03/31/17 21:11 ; Start 03/31/17 at 21:00 Metoprolol Tartrate (Lopressor) 50 mg BID PO Last administered on 04/01/17 08: 44; Start 03/31/17 at 13:30 Multivitamins (Thera M Plus) 1 tab DAILY PO Last administered on 04/01/17 08:43 ; Start 04/01/17 at 09:00 Nifedipine (Procardia Xl) 30 mg DAILY PO ; Start 03/31/17 at 13:30; Stop 03/31/17 at 18:09; Status DC Acetaminophen (Tylenol) 650 mg PRN Q6HRS PRN PO MILD PAIN / TEMP; Start at 12:30 Al Hydroxide/Mg Hydroxide (Mylanta Plus Xs) 30 ml PRN Q3HRS PRN PO HEARTBURN / GAS; Start 03/31/17 at 12:30 Calcium Carbonate/ Glycine (Tums) 500 mg PRN Q3HRS PRN PO INDIGESTION; Start at 12:30 Diphenhydramine HCl (Benadryl) 25 mg PRN Q6HRS PRN PO ITCHING; Start 03/31/17 at 12:30 Diphenhydramine HCl (Benadryl) 25 mg PRN Q6HRS PRN IV ITCHING; Start 03/31/17 at 12:30 Sodium Chloride (Normal Saline Flush) 3 ml QSHIFT PRN IV AFTER MEDS AND BLOOD DRAWS; Start 03/31/17 at 12:30 Budesonide (Pulmicort) 0.5 mg RTBID NEB ; Start 03/31/17 at 20:00; Stop 03/31/17 at 20:00; Status DC Nifedipine (Procardia Xl) 90 mg DAILY PO Last administered on 04/01/17 08:45; Start 04/01/17 at 09:00 Active Scripts Active Colace (Docusate Sodium) 100 Mg Capsule 100 Mg PO BID 60 Days Methocarbamol 750 Mg Tablet 750 Mg PO TID 60 Days Hydrocodone-Apap 7.5-325 (Hydrocodone Bit/Acetaminophen) 1 Each Tablet 1 Tab PO PRN Q6HRS PRN 60 Days Reported Tamsulosin Hcl 0.4 Mg Cap.er.24h 0.4 Mg PO DAILY Metformin Hcl 500 Mg Tablet 500 Mg PO DAILYBFRSUP Gabapentin 100 Mg Capsule 100 Mg PO TID Lovastatin 20 Mg Tablet 1 Tab PO DAILY Lthxukyoxm-Orwuissywqd-Eig Tab (Gluc/Jonah-Msm#2/C/D3/Vidal/Born) 1 Each Tablet 1 Each PO BID Glimepiride 1 Mg Tablet 0.5 Tab PO DAILY Losartan Potassium 100 Mg Tablet 100 Mg PO DAILY Diclofenac Sodium 75 Mg Tablet.dr 75 Mg PO BID Nitrostat (Nitroglycerin) 0.4 Mg Tab.subl 0.4 Mg SL PRN Viagra (Sildenafil Citrate) 100 Mg Tablet 100 Mg PO PRN Potassium Chloride 10 Meq Tablet.er 10 Meq PO DAILY Metformin Hcl 1,000 Mg Tablet 1,000 Mg PO DAILY08 Hydrochlorothiazide Tablet (Hydrochlorothiazide) 25 Mg Tablet 25 Mg PO DAILY Metoprolol Tartrate 100 Mg Tablet 50 Mg PO BID Flovent 50MCG Diskus (Fluticasone Propionate) 50 Mcg Disk.w.dev 50 Mcg IH DAILY Citalopram Hbr (Citalopram Hydrobromide) 20 Mg Tablet 20 Mg PO BID Nifedipine Er (Nifedipine) 90 Mg Tab.er.24 90 Mg PO DAILY Multivitamins (Multivitamin) 1 Each Tablet 1 Each PO DAILY Fish Oil 1,200 Mg Fish Oil (Fish Oil/Dha/Epa) 1 Each Capsule 1 Each PO BID Vitals/I & O Vital Sign - Last 24 Hours 03/31/17 03/31/17 03/31/17 03/31/17 11:44 12:56 12:57 12:57 Temp 97.8 97.8 Pulse 71 71 71 71 Resp 18 B/P (MAP) 152/79 (103) 152/79 152/79 152/79 Pulse Ox 96 O2 Delivery Room Air 03/31/17 03/31/17 03/31/17 03/31/17 14:53 19:25 20:00 21:12 Temp 97.7 98.2 97.7 98.2 Pulse 70 67 70 Resp 18 20 B/P (MAP) 162/77 (105) 165/67 (99) 169/79 Pulse Ox 98 96 O2 Delivery Room Air Room Air Room Air 03/31/17 04/01/17 04/01/17 04/01/17 23:14 03:17 07:00 08:44 Temp 98.3 98.1 98.3 98.3 98.1 98.3 Pulse 58 63 65 65 Resp 20 18 18 B/P (MAP) 171/85 (113) 162/88 (112) 154/93 (113) 154/93 Pulse Ox 97 97 96 O2 Delivery Room Air Room Air Room Air 04/01/17 08:45 Pulse 65 B/P (MAP) 154/93 Intake and Output 03/31/17 03/31/17 04/01/17 15:00 23:00 07:00 Intake Total 120 ml 660 ml Balance 120 ml 660 ml REINA OLIVARES MD Apr 01, 2017 09:30
[2017-04-01 11:00] VITALS: BP 174/88
[2017-04-01] MEDS ORDERED: LIDOCAINE 1% / SOD BICARB 8.4% 20 ML VIAL. IJ ONE (13:00)
[2017-04-01] MEDS ORDERED: 0.9 % SODIUM CHLORIDE 10 ML DISP.SYRIN. IV PRN ×2 (13:45)
[2017-04-01 14:43] VITALS: BP 135/72
[2017-04-01 19:25] VITALS: BP 147/78
[2017-04-01] MEDS: ATORVASTATIN CALCIUM 10 MG TABLET. PO SCH (21:14)
[2017-04-01 23:34] VITALS: BP 139/68
--- NOTE | 2017-04-02 01:45 | CONS ---
DATE OF CONSULTATION: 04/01/2017 REQUESTING PHYSICIAN: Dr. Gu. REASON FOR CONSULTATION: Spine infection, post surgery. HISTORY OF PRESENT ILLNESS: This is a 72-year-old gentleman with severe back pain with leg pain who underwent microdiscectomy at L3-L4 and L4-L5 level on 03/07/2017. Post-surgery, his pain has improved that he is doing great, but he continued to have 2 places from the incision that keeps draining. The patient continues to drain from the back 2 places in the incision. He has had round of clindamycin and a round of Bactrim without any improvement. The patient denies any fevers, chills, nausea, vomiting, diarrhea, chest pain, shortness of breath, any urinary or bowel symptoms. PAST MEDICAL HISTORY: Positive for arthritis, gout, has had cancer with radiation, hypertension and diabetes. SOCIAL HISTORY: Negative for smoking, alcohol, illicit drug use. CURRENT MEDICATIONS: Reviewed. The patient is not on any antibiotics yet. REVIEW OF SYSTEMS: As per HPI, all other systems reviewed are negative. PHYSICAL EXAMINATION: GENERAL: Alert, oriented gentleman, not in distress. VITAL SIGNS: Stable, afebrile. HEENT: NAD. Both pupils are round and reacting. No conjunctival lesion, no lesion in the mouth. NECK: Supple, no JVP, no lymphadenopathy. LUNGS: Clear. HEART: S1, S2 regular. ABDOMEN: Benign. EXTREMITIES: No edema, cyanosis. SKIN: Unremarkable. NEUROLOGIC: The patient is neurologically intact. BACK: The patient's incision is all healed except 2 places where it goes deep, at least 3 cm deep both the places and there is some yellow drainage. NEUROLOGIC: The patient is neurologically intact. ALLERGIES: THE PATIENT IS LISTED ALLERGIC TO PENICILLIN, WHICH CAUSED RASH AROUND HIS VEST BELT AREA. LABORATORY DATA: White count is normal. Sed rate is 63. BUN and creatinine is normal. Culture done outpatient that is obtained, it is MSSA. CT scan of the spine done, which was not showing any abscess. IMPRESSION: 1. 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 Failed two rounds of antibiotics outpatient. I would treat aggressively with IV as diskitis. 2. Status post microdiscectomy at L3-L4 and L4-L5 on 03/07/2017. 3. Hypertension. 4. Diabetes. 5. Arthritis. 6. Gout. RECOMMENDATIONS: I would start him on cefazolin, PICC line and detailed discussion done with patient and patient's about the pros and cons and plan also same discussion done with Dr. Gu. I have consulted social service to arrange for the home antibiotics. Thank you very much, Dr. Gu for giving me the opportunity to participate in this patient's care. SAEID LITTLE MD DR: TRINA/terri JOB#: [id number] / [id number] PHILOMENA
[2017-04-02 03:13] VITALS: BP 151/84
[2017-04-02 07:00] VITALS: BP 168/83
[2017-04-02] MEDS: OMEGA-3 FATTY ACIDS/FISH OIL 1,000 MG CAPSULE. PO SCH ×2 (08:01→21:09)
[2017-04-02] MEDS: METOPROLOL TART IMMED RELEASE 50 MG TABLET. PO SCH ×2 (08:02→21:09)
[2017-04-02] MEDS: POTASSIUM CHLORIDE 10 MEQ TABLET.ER. PO SCH (08:02)
[2017-04-02] MEDS: DOCUSATE SODIUM 100 MG CAPSULE. PO SCH ×3 (08:02→21:09)
[2017-04-02] MEDS: GLIMEPIRIDE 2 MG TABLET. PO SCH (08:03)
[2017-04-02] MEDS: MULTIVITAMIN with MINERAL TABLET. PO SCH (08:03)
[2017-04-02] MEDS: CITALOPRAM 20 MG TABLET. PO SCH ×2 (08:03→21:09)
--- NOTE | 2017-04-02 08:08 | PDOC ---
Infectious Disease Note Subjective Subjective pt feeling better ROS ROS GEN: Denies fevers, chills, sweats HEENT: Denies blurred vision, sore throat CV: Denies chest pain RESP: Denies shortness of air, cough GI: Denies n/v/d NEURO: Denies confusion, dizziness MSK: Denies weakness, joint pain/swelling Vital Sign Vital Signs Vital Signs Date Time Temp Pulse Resp B/P (MAP) Pulse Ox O2 Delivery O2 Flow Rate FiO2 04/02/17 08:02 77 151/84 04/02/17 03:13 98.7 18 97 Room Air 98.7 Physical Exam PHYSICAL EXAM GENERAL: NAD, Alert HEENT: PERRL, OC/OP NECK: Supple, no JVD, no LN LUNGS: Clear HEART: S1S2, no gallop, no murmur ABD: Soft, NT, no organomegaly, no rebound EXT: No edema, no cyanosis [employer]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
[2017-04-02 11:00] VITALS: BP 172/86
[2017-04-02 15:00] VITALS: BP 148/73
--- NOTE | 2017-04-02 16:47 | PDOC ---
PROGRESS NOTES Subjective Subjective resting in bed no complaints Objective Objective Vital Signs Date Time Temp Pulse Resp B/P (MAP) Pulse Ox O2 Delivery O2 Flow Rate FiO2 04/02/17 15:00 97.7 74 20 148/73 (98) 97 Room Air 97.7 Intake and Output 04/02/17 07:00 Intake Total 1217 ml Output Total 1550 ml Balance -333 ml Intake Oral 1000 ml IV Total 217 ml Output Urine Total 1550 ml # Voids 3 Physical Exam General: Alert, Oriented X3, Cooperative, No acute distress MUSCULOSKELETAL: Other (NUNO) Neuro: Normal speech Psych/Mental Status: Mental status NL Skin: Other (dressing C,D, I, flat) Plan Plan of Care continue antibiotics per ID Encouraged up ad chad Comment Review of Relevant I have reviewed the following items kyler (where applicable) has been applied. Medications Current Medications Citalopram Hydrobromide (CeleXA) 20 mg BID PO Last administered on 04/02/17 08: 03; Start 03/31/17 at 13:30 Docusate Sodium (Colace) 100 mg BID PO Last administered on 04/01/17 08:43; Start 03/31/17 at 13:30 Gabapentin (Neurontin) 100 mg TID PO ; Start 03/31/17 at 14:00; Stop 03/31/17 at 14:00; Status DC Hydrochlorothiazide (Hydrodiuril) 25 mg DAILY PO ; Start 03/31/17 at 13:30; Stop 03/31/17 at 18:09; Status DC Acetaminophen/ Hydrocodone Bitart (Lortab 7.5/325) 1 tab PRN Q6HRS PRN PO PAIN ; Start 03/31/17 at 12:30 Metformin HCl (Glucophage) 500 mg TIDWMEALS PO Last administered on 04/01/17 08 :43; Start 03/31/17 at 13:00; Stop 04/01/17 at 14:25; Status DC Methocarbamol (Robaxin) 750 mg TID PO ; Start 03/31/17 at 14:00; Stop 03/31/17 at 17:18; Status DC Nitroglycerin (Nitrostat) 0.4 mg PRN DAILY PRN SL CHEST PAIN; Start 03/31/17 at 12:30 Potassium Chloride (Klor-Con) 10 meq DAILY PO Last administered on 04/02/17 08: 02; Start 04/01/17 at 09:00 Diclofenac Sodium (Voltaren) 75 mg BID PO ; Start 03/31/17 at 21:00; Stop at 21:00; Status DC Fish Oil (Fish Oil) 1,000 mg BID PO Last administered on 04/02/17 08:01; Start 03/31/17 at 13:30 Non-Formulary Medication 50 mcg DAILY IH ; Start 04/01/17 at 09:00; Status UNV Glimepiride (Amaryl) 1 mg DAILY PO Last administered on 04/02/17 08:03; Start 04/01/17 at 09:00 Non-Formulary Medication 1 each BID PO ; Start 03/31/17 at 21:00; Status UNV Losartan Potassium (Cozaar) 100 mg DAILY PO ; Start 03/31/17 at 13:30; Stop at 18:09; Status DC Atorvastatin Calcium (Lipitor) 5 mg QHS PO Last administered on 04/01/17 21:14 ; Start 03/31/17 at 21:00 Metoprolol Tartrate (Lopressor) 50 mg BID PO Last administered on 04/02/17 08: 02; Start 03/31/17 at 13:30 Multivitamins (Thera M Plus) 1 tab DAILY PO Last administered on 04/02/17 08:03 ; Start 04/01/17 at 09:00 Nifedipine (Procardia Xl) 30 mg DAILY PO ; Start 03/31/17 at 13:30; Stop 03/31/17 at 18:09; Status DC Acetaminophen (Tylenol) 650 mg PRN Q6HRS PRN PO MILD PAIN / TEMP; Start at 12:30 Al Hydroxide/Mg Hydroxide (Mylanta Plus Xs) 30 ml PRN Q3HRS PRN PO HEARTBURN / GAS; Start 03/31/17 at 12:30 Calcium Carbonate/ Glycine (Tums) 500 mg PRN Q3HRS PRN PO INDIGESTION; Start at 12:30 Diphenhydramine HCl (Benadryl) 25 mg PRN Q6HRS PRN PO ITCHING; Start 03/31/17 at 12:30 Diphenhydramine HCl (Benadryl) 25 mg PRN Q6HRS PRN IV ITCHING; Start 03/31/17 at 12:30 Sodium Chloride (Normal Saline Flush) 3 ml QSHIFT PRN IV AFTER MEDS AND BLOOD DRAWS; Start 03/31/17 at 12:30 Budesonide (Pulmicort) 0.5 mg RTBID NEB ; Start 03/31/17 at 20:00; Stop 03/31/17 at 20:00; Status DC Nifedipine (Procardia Xl) 90 mg DAILY PO Last administered on 04/02/17 08:01; Start 04/01/17 at 09:00 Cefazolin Sodium 2 gm/Sodium Chloride 50 ml @ 100 mls/hr Q8HRS IV ; Start at 10:00; Status Cancel Cefazolin Sodium/ Dextrose 50 ml @ 100 mls/hr Q8HRS IV Last administered on 13:45; Start 04/01/17 at 10:00 Lidocaine/Sodium Bicarbonate (Buffered Lidocaine 1%) 3 ml 1X ONCE IJ ; Start at 13:00; Stop 04/01/17 at 13:05; Status DC Heparin Sodium/ Sodium Chloride 60 unit 1X ONCE IV ; Start 04/01/17 at 13:00; Stop 04/01/17 at 13:05; Status DC Sodium Chloride (Normal Saline Flush) 10 ml QSHIFT PRN IV AFTER MEDS AND BLOOD DRAWS; Start 04/01/17 at 13:45 Sodium Chloride (Normal Saline Flush) 20 ml QSHIFT PRN IV AFTER MEDS AND BLOOD DRAWS; Start 04/01/17 at 13:45 Metformin HCl (Glucophage) 1,000 mg DAILYWBKFT PO Last administered on 08:03; Start 04/02/17 at 08:00 Metformin HCl (Glucophage) 500 mg DAILYWSUP PO Last administered on 04/01/17 16 :58; Start 04/01/17 at 17:00 Active Scripts Active Colace (Docusate Sodium) 100 Mg Capsule 100 Mg PO BID 60 Days Methocarbamol 750 Mg Tablet 750 Mg PO TID 60 Days Hydrocodone-Apap 7.5-325 (Hydrocodone Bit/Acetaminophen) 1 Each Tablet 1 Tab PO PRN Q6HRS PRN 60 Days Reported Tamsulosin Hcl 0.4 Mg Cap.er.24h 0.4 Mg PO DAILY Metformin Hcl 500 Mg Tablet 500 Mg PO DAILYBFRSUP Gabapentin 100 Mg Capsule 100 Mg PO TID Lovastatin 20 Mg Tablet 1 Tab PO DAILY Jlcnermbia-Gielimptzdg-Crc Tab (Gluc/Jonah-Msm#2/C/D3/Vidal/Born) 1 Each Tablet 1 Each PO BID Glimepiride 1 Mg Tablet 0.5 Tab PO DAILY Losartan Potassium 100 Mg Tablet 100 Mg PO DAILY Diclofenac Sodium 75 Mg Tablet.dr 75 Mg PO BID Nitrostat (Nitroglycerin) 0.4 Mg Tab.subl 0.4 Mg SL PRN Viagra (Sildenafil Citrate) 100 Mg Tablet 100 Mg PO PRN Potassium Chloride 10 Meq Tablet.er 10 Meq PO DAILY Metformin Hcl 1,000 Mg Tablet 1,000 Mg PO DAILY08 Hydrochlorothiazide Tablet (Hydrochlorothiazide) 25 Mg Tablet 25 Mg PO DAILY Metoprolol Tartrate 100 Mg Tablet 50 Mg PO BID Flovent 50MCG Diskus (Fluticasone Propionate) 50 Mcg Disk.w.dev 50 Mcg IH DAILY Citalopram Hbr (Citalopram Hydrobromide) 20 Mg Tablet 20 Mg PO BID Nifedipine Er (Nifedipine) 90 Mg Tab.er.24 90 Mg PO DAILY Multivitamins (Multivitamin) 1 Each Tablet 1 Each PO DAILY Fish Oil 1,200 Mg Fish Oil (Fish Oil/Dha/Epa) 1 Each Capsule 1 Each PO BID Vitals/I & O Vital Sign - Last 24 Hours 04/01/17 04/01/17 04/01/17 04/01/17 19:25 19:55 21:16 23:34 Temp 98.2 98.1 98.2 98.1 Pulse 80 80 69 Resp 20 18 B/P (MAP) 147/78 (101) 147/78 139/68 (91) Pulse Ox 97 96 O2 Delivery Room Air Room Air Room Air 04/02/17 04/02/17 04/02/17 04/02/17 03:13 07:00 08:01 08:02 Temp 98.7 98.3 98.7 98.3 Pulse 77 70 77 77 Resp 18 18 B/P (MAP) 151/84 (106) 168/83 (111) 151/84 151/84 Pulse Ox 97 95 O2 Delivery Room Air Room Air 04/02/17 04/02/17 11:00 15:00 Temp 98.6 97.7 98.6 97.7 Pulse 67 74 Resp 18 20 B/P (MAP) 172/86 (114) 148/73 (98) Pulse Ox 96 97 O2 Delivery Room Air Room Air Intake and Output 04/01/17 04/01/17 04/02/17 15:00 23:00 07:00 Intake Total 380 ml 120 ml 717 ml Output Total 1550 ml Balance 380 ml 120 ml -833 ml CARLOS MATOS DIRECTOR OF FOOD AND BEVERAGE SERVICES Apr 02, 2017 16:47
[2017-04-02] MEDS: metFORMIN 500 MG TABLET PO SCH (17:23)
[2017-04-02 19:00] VITALS: BP 150/73
[2017-04-02] MEDS: ATORVASTATIN CALCIUM 10 MG TABLET. PO SCH (21:09)
[2017-04-02 23:00] VITALS: BP 153/83
[2017-04-03 03:23] VITALS: BP 144/81
[2017-04-03 07:00] VITALS: BP 165/83
--- NOTE | 2017-04-03 08:07 | PDOC ---
Infectious Disease Note Subjective Subjective pt feeling good ROS ROS GEN: Denies fevers, chills, sweats HEENT: Denies blurred vision, sore throat CV: Denies chest pain RESP: Denies shortness of air, cough GI: Denies n/v/d NEURO: Denies confusion, dizziness MSK: Denies weakness, joint pain/swelling Vital Sign Vital Signs Vital Signs Date Time Temp Pulse Resp B/P (MAP) Pulse Ox O2 Delivery O2 Flow Rate FiO2 04/03/17 07:00 97.8 72 20 165/83 (110) 96 Room Air 97.8 Physical Exam PHYSICAL EXAM GENERAL: NAD, Alert HEENT: PERRL, OC/OP NECK: Supple, no JVD, no LN LUNGS: Clear HEART: S1S2, no gallop, no murmur ABD: Soft, NT, no organomegaly, no rebound EXT: No edema, no cyanosis [employer]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
[2017-04-03] MEDS: MULTIVITAMIN with MINERAL TABLET. PO SCH (09:04)
[2017-04-03] MEDS: OMEGA-3 FATTY ACIDS/FISH OIL 1,000 MG CAPSULE. PO SCH (09:04)
[2017-04-03] MEDS: POTASSIUM CHLORIDE 10 MEQ TABLET.ER. PO SCH (09:04)
[2017-04-03] MEDS: CITALOPRAM 20 MG TABLET. PO SCH (09:04)
[2017-04-03] MEDS: DOCUSATE SODIUM 100 MG CAPSULE. PO SCH (09:05)
[2017-04-03] MEDS: GLIMEPIRIDE 2 MG TABLET. PO SCH (09:05)
[2017-04-03] MEDS: METOPROLOL TART IMMED RELEASE 50 MG TABLET. PO SCH (09:05)
[2017-04-03 11:00] VITALS: BP 175/89
--- NOTE | 2017-04-03 11:57 | DISCH ---
DISCHARGE INSTRUCTIONS Condition on Discharge Condition on Discharge: Stable Activity After Discharge Activity Instructions for Disc: Activity as tolerated, Avoid exertion Bathing Instructions: Shower-keep dressing dry Lifting Instructions after Dis: No heavy lifting, No pulling or pushing, Do not lift >10 pounds Driving Instructions after Dis: Do not drive Diet after Discharge Additional Diet Restrictions: resume current diet Wound Incision Care Wound/Incision Care: Ice to area for comfort Other wound/incision instructi: daily dressing changes Contacting the DRMariela after DC Call your doctor for: Concerns you may have Follow-Up Follow up with: Dr. Fry in 2 weeks, Dr. Olivares in 2 weeks [phone] REINA OLIVARES MD Apr 03, 2017 11:57
--- NOTE | 2017-04-03 12:08 | PDOC ---
PROGRESS NOTES Subjective Subjective no complaints of pain feels good has been ambulating in amaral Objective Objective Vital Signs Date Time Temp Pulse Resp B/P (MAP) Pulse Ox O2 Delivery O2 Flow Rate FiO2 04/03/17 09:05 72 165/83 04/03/17 07:40 Room Air 04/03/17 07:00 97.8 20 96 97.8 Intake and Output 04/03/17 07:00 Intake Total 1601 ml Balance 1601 ml Intake Oral 1280 ml IV Total 321 ml # Voids 7 Physical Exam General: Alert, Oriented X3, Cooperative, No acute distress MUSCULOSKELETAL: Other (NUNO) Neuro: Normal speech Psych/Mental Status: Mental status NL Skin: Other (Dressing dry and intact, flat) Plan Plan of Care dc today to SNF for IV antibiotics f/u with Dr. Fry 2 weeks F/u with us in 2 weeks Comment Review of Relevant I have reviewed the following items kyler (where applicable) has been applied. Medications Current Medications Citalopram Hydrobromide (CeleXA) 20 mg BID PO Last administered on 04/03/17 09: 04; Start 03/31/17 at 13:30 Docusate Sodium (Colace) 100 mg BID PO Last administered on 04/03/17 09:05; Start 03/31/17 at 13:30 Gabapentin (Neurontin) 100 mg TID PO ; Start 03/31/17 at 14:00; Stop 03/31/17 at 14:00; Status DC Hydrochlorothiazide (Hydrodiuril) 25 mg DAILY PO ; Start 03/31/17 at 13:30; Stop 03/31/17 at 18:09; Status DC Acetaminophen/ Hydrocodone Bitart (Lortab 7.5/325) 1 tab PRN Q6HRS PRN PO PAIN ; Start 03/31/17 at 12:30 Metformin HCl (Glucophage) 500 mg TIDWMEALS PO Last administered on 04/01/17 08 :43; Start 03/31/17 at 13:00; Stop 04/01/17 at 14:25; Status DC Methocarbamol (Robaxin) 750 mg TID PO ; Start 03/31/17 at 14:00; Stop 03/31/17 at 17:18; Status DC Nitroglycerin (Nitrostat) 0.4 mg PRN DAILY PRN SL CHEST PAIN; Start 03/31/17 at 12:30 Potassium Chloride (Klor-Con) 10 meq DAILY PO Last administered on 04/03/17 09: 04; Start 04/01/17 at 09:00 Diclofenac Sodium (Voltaren) 75 mg BID PO ; Start 03/31/17 at 21:00; Stop at 21:00; Status DC Fish Oil (Fish Oil) 1,000 mg BID PO Last administered on 04/03/17 09:04; Start 03/31/17 at 13:30 Non-Formulary Medication 50 mcg DAILY IH ; Start 04/01/17 at 09:00; Status UNV Glimepiride (Amaryl) 1 mg DAILY PO Last administered on 04/03/17 09:05; Start 04/01/17 at 09:00 Non-Formulary Medication 1 each BID PO ; Start 03/31/17 at 21:00; Status UNV Losartan Potassium (Cozaar) 100 mg DAILY PO ; Start 03/31/17 at 13:30; Stop at 18:09; Status DC Atorvastatin Calcium (Lipitor) 5 mg QHS PO Last administered on 04/02/17 21:09 ; Start 03/31/17 at 21:00 Metoprolol Tartrate (Lopressor) 50 mg BID PO Last administered on 04/03/17 09: 05; Start 03/31/17 at 13:30 Multivitamins (Thera M Plus) 1 tab DAILY PO Last administered on 04/03/17 09:04 ; Start 04/01/17 at 09:00 Nifedipine (Procardia Xl) 30 mg DAILY PO ; Start 03/31/17 at 13:30; Stop 03/31/17 at 18:09; Status DC Acetaminophen (Tylenol) 650 mg PRN Q6HRS PRN PO MILD PAIN / TEMP; Start at 12:30 Al Hydroxide/Mg Hydroxide (Mylanta Plus Xs) 30 ml PRN Q3HRS PRN PO HEARTBURN / GAS; Start 03/31/17 at 12:30 Calcium Carbonate/ Glycine (Tums) 500 mg PRN Q3HRS PRN PO INDIGESTION; Start at 12:30 Diphenhydramine HCl (Benadryl) 25 mg PRN Q6HRS PRN PO ITCHING; Start 03/31/17 at 12:30 Diphenhydramine HCl (Benadryl) 25 mg PRN Q6HRS PRN IV ITCHING; Start 03/31/17 at 12:30 Sodium Chloride (Normal Saline Flush) 3 ml QSHIFT PRN IV AFTER MEDS AND BLOOD DRAWS; Start 03/31/17 at 12:30 Budesonide (Pulmicort) 0.5 mg RTBID NEB ; Start 03/31/17 at 20:00; Stop 03/31/17 at 20:00; Status DC Nifedipine (Procardia Xl) 90 mg DAILY PO Last administered on 04/03/17 09:05; Start 04/01/17 at 09:00 Cefazolin Sodium 2 gm/Sodium Chloride 50 ml @ 100 mls/hr Q8HRS IV ; Start at 10:00; Status Cancel Cefazolin Sodium/ Dextrose 50 ml @ 100 mls/hr Q8HRS IV Last administered on 06:25; Start 04/01/17 at 10:00 Lidocaine/Sodium Bicarbonate (Buffered Lidocaine 1%) 3 ml 1X ONCE IJ ; Start at 13:00; Stop 04/01/17 at 13:05; Status DC Heparin Sodium/ Sodium Chloride 60 unit 1X ONCE IV ; Start 04/01/17 at 13:00; Stop 04/01/17 at 13:05; Status DC Sodium Chloride (Normal Saline Flush) 10 ml QSHIFT PRN IV AFTER MEDS AND BLOOD DRAWS; Start 04/01/17 at 13:45 Sodium Chloride (Normal Saline Flush) 20 ml QSHIFT PRN IV AFTER MEDS AND BLOOD DRAWS; Start 04/01/17 at 13:45 Metformin HCl (Glucophage) 1,000 mg DAILYWBKFT PO Last administered on 09:05; Start 04/02/17 at 08:00 Metformin HCl (Glucophage) 500 mg DAILYWSUP PO Last administered on 04/02/17 17 :23; Start 04/01/17 at 17:00 Active Scripts Active Colace (Docusate Sodium) 100 Mg Capsule 100 Mg PO BID 60 Days Methocarbamol 750 Mg Tablet 750 Mg PO TID 60 Days Hydrocodone-Apap 7.5-325 (Hydrocodone Bit/Acetaminophen) 1 Each Tablet 1 Tab PO PRN Q6HRS PRN 60 Days Reported Tamsulosin Hcl 0.4 Mg Cap.er.24h 0.4 Mg PO DAILY Metformin Hcl 500 Mg Tablet 500 Mg PO DAILYBFRSUP Gabapentin 100 Mg Capsule 100 Mg PO TID Lovastatin 20 Mg Tablet 1 Tab PO DAILY Qrvuyqbbok-Dvninwdzwid-Yhs Tab (Gluc/Jonah-Msm#2/C/D3/Vidal/Born) 1 Each Tablet 1 Each PO BID Glimepiride 1 Mg Tablet 0.5 Tab PO DAILY Losartan Potassium 100 Mg Tablet 100 Mg PO DAILY Diclofenac Sodium 75 Mg Tablet.dr 75 Mg PO BID Nitrostat (Nitroglycerin) 0.4 Mg Tab.subl 0.4 Mg SL PRN Viagra (Sildenafil Citrate) 100 Mg Tablet 100 Mg PO PRN Potassium Chloride 10 Meq Tablet.er 10 Meq PO DAILY Metformin Hcl 1,000 Mg Tablet 1,000 Mg PO DAILY08 Hydrochlorothiazide Tablet (Hydrochlorothiazide) 25 Mg Tablet 25 Mg PO DAILY Metoprolol Tartrate 100 Mg Tablet 50 Mg PO BID Flovent 50MCG Diskus (Fluticasone Propionate) 50 Mcg Disk.w.dev 50 Mcg IH DAILY Citalopram Hbr (Citalopram Hydrobromide) 20 Mg Tablet 20 Mg PO BID Nifedipine Er (Nifedipine) 90 Mg Tab.er.24 90 Mg PO DAILY Multivitamins (Multivitamin) 1 Each Tablet 1 Each PO DAILY Fish Oil 1,200 Mg Fish Oil (Fish Oil/Dha/Epa) 1 Each Capsule 1 Each PO BID Vitals/I & O Vital Sign - Last 24 Hours 04/02/17 04/02/17 04/02/17 04/02/17 15:00 19:00 20:45 21:09 Temp 97.7 98.4 97.7 98.4 Pulse 74 77 77 Resp 20 18 B/P (MAP) 148/73 (98) 150/73 (98) 150/73 Pulse Ox 97 95 O2 Delivery Room Air Room Air Room Air 04/02/17 04/03/17 04/03/17 04/03/17 23:00 03:23 07:00 07:40 Temp 98.5 98.8 97.8 98.5 98.8 97.8 Pulse 75 69 72 Resp 18 18 20 B/P (MAP) 153/83 (106) 144/81 (102) 165/83 (110) Pulse Ox 95 94 96 O2 Delivery Room Air Room Air Room Air Room Air 04/03/17 04/03/17 09:05 09:05 Pulse 72 72 B/P (MAP) 165/83 165/83 Intake and Output 04/02/17 04/02/17 04/03/17 15:00 23:00 07:00 Intake Total 50 ml 1551 ml Balance 50 ml 1551 ml CARLOS MATOS [employer] Apr 03, 2017 12:08
== END 2017-04-03 12:35 | DRG 863 ==
LOC: 4 NORTH 11:06
PROVIDERS: ADMIT Neurological Surgery; ATTEND Neurological Surgery
DX: T81.4XXA Infection following a procedure, initial encounter (principal); B95.61 Methicillin susceptible Staphylococcus aureus infection as the cause of diseases classified elsewhere; M19.90 Unspecified osteoarthritis, unspecified site; M10.9 Gout, unspecified; I10 Essential (primary) hypertension; M46.40 Discitis, unspecified, site unspecified; E11.9 Type 2 diabetes mellitus without complications; Z95.5 Presence of coronary angioplasty implant and graft; Z85.820 Personal history of malignant melanoma of skin; Z92.21 Personal history of antineoplastic chemotherapy; Z88.0 Allergy status to penicillin; Z79.899 Other long term (current) drug therapy; Z79.4 Long term (current) use of insulin; Z79.1 Long term (current) use of non-steroidal anti-inflammatories (NSAID); Z88.8 Allergy status to other drugs, medicaments and biological substances; Z91.018 Allergy to other foods
CPT/HCPCS: 36415; 72131; 80053; 85027; 85651; J0690

== ENCOUNTER 2017-07-25 17:11 | Inpatient (IN) | payer MEDICARE, OTHER ==
[~2017-07-25] VITALS: Ht 177.8 cm; Wt 94.9 kg
[~2017-07-25 17:11] MED LIST changes: +METF500T4 PO; -METO100T2 PO; +METO100T7 PO
--- NOTE | 2017-07-25 17:25 | PHYS DOC ---
Past Medical History Past Medical History: Hypertension, Other Additional Past Medical Histor: BLIND IN RIGHT EYE, CANCER BEHIND R EYE Past Surgical History: Other Additional Past Surgical Histo: CARDIAC STENT Alcohol Use: Rarely Drug Use: None Adult General Chief Complaint Chief Complaint: altered mental status [facility] HPI Patient is a 72 year old male who presents with in episode of syncope versus altered mental status. According to family he went to work and when he got to work he was wearing a coat and was drenched in sweat. They sent him home. On the way home he ended up pulling into a neighbor's driveway and the neighbor saw him in the car passed out with the car running. EMS brought him here he states he remembers going to work this morning but doesn't remember anything else after that. According to his over the last 2 months she's been having changes in his personality and sleeping more. His sister did 10 months ago or so and she is wondering if that has something to do with this. He also had back surgery within the last few months and had MRSA infection was being treated by Dr. Fry with antibiotics. He denies that he has any fevers chills nausea or vomiting. He denies a headache or neck stiffness. He is alert and oriented 3 at this time. Review of Systems Review of Systems Constitutional: Denies fever or chills [] Eyes: Denies change in visual acuity, redness, or eye pain [] HENT: Denies nasal congestion or sore throat [] Respiratory: Denies cough or shortness of breath [] Cardiovascular: No additional information not addressed in HPI [] GI: Denies abdominal pain, nausea, vomiting, bloody stools or diarrhea [] : Denies dysuria or hematuria [] Musculoskeletal: Denies back pain or joint pain [] Integument: Denies rash or skin lesions [] Neurologic: Denies headache, focal weakness or sensory changes [] Endocrine: Denies polyuria or polydipsia [] Allergies Allergies Allergies Coded Allergies Type Severity Reaction Last Updated Verified Iodinated Contrast- Oral and IV Dye Allergy Severe 03/07/17 Yes Penicillins Allergy Intermediate 03/07/17 Yes tomato Allergy Intermediate 03/07/17 Yes simvastatin Adverse Reaction Mild 03/07/17 Yes Physical Exam Physical Exam Constitutional: Well developed, well nourished, no acute distress, non-toxic appearance. [] HENT: Normocephalic, atraumatic, bilateral external ears normal, oropharynx moist, no oral exudates, nose normal. [] Eyes: PERRLA, EOMI, conjunctiva normal, no discharge. [] Neck: Normal range of motion, no tenderness, supple, no stridor. [] Cardiovascular:Heart rate regular rhythm, no murmur [] Lungs & Thorax: Bilateral breath sounds clear to auscultation [] Abdomen: Bowel sounds normal, soft, no tenderness, no masses, no pulsatile masses. [] Skin: Warm, dry, no erythema, no rash. Well-healed incision over L3-4-5 without any erythema or tenderness Back: No tenderness, no CVA tenderness. [] Extremities: No tenderness, no cyanosis, no clubbing, ROM intact, no edema. [] Neurologic: Alert and oriented X 3, normal motor function, normal sensory function, no focal deficits noted. [] Psychologic: Affect normal, judgement normal, mood normal. [] Current Patient Data Vital Signs Vital Signs Date Time Temp Pulse Resp B/P (MAP) Pulse Ox O2 Delivery O2 Flow Rate FiO2 07/25/17 17:15 98.5 86 24 148/67 (94) 96 Room Air 98.5 Lab Values Laboratory Tests Test 07/25/17 18:00 White Blood Count 18.9 x10^3/uL (4.0-11.0) H Red Blood Count 4.02 x10^6/uL (4.30-5.70) L Hemoglobin 11.2 g/dL (13.0-17.5) L Hematocrit 32.7 % (39.0-53.0) L Mean Corpuscular Volume 81 fL (79-100) Mean Corpuscular Hemoglobin 28 pg (25-35) Mean Corpuscular Hemoglobin Concent 34 g/dL (31-37) Red Cell Distribution Width 14.0 % (11.5-14.5) Platelet Count 247 x10^3/uL (140-400) Neutrophils (%) (Auto) 91 % (31-73) H Lymphocytes (%) (Auto) 2 % (24-48) L Monocytes (%) (Auto) 7 % (0-9) Eosinophils (%) (Auto) 0 % (0-3) Basophils (%) (Auto) 0 % (0-3) Neutrophils # (Auto) 17.1 x10^3uL (1.8-7.7) H Lymphocytes # (Auto) 0.4 x10^3/uL (1.0-4.8) L Monocytes # (Auto) 1.4 x10^3/uL (0.0-1.1) H Eosinophils # (Auto) 0.0 x10^3/uL (0.0-0.7) Basophils # (Auto) 0.1 x10^3/uL (0.0-0.2) Segmented Neutrophils % 92 % (35-66) H Lymphocytes % 2 % (24-48) L Monocytes % 6 % (0-10) Platelet Estimate Increased (ADEQUATE) Polychromasia Slight Target Cells Occ Schistocytes Occ Prothrombin Time 14.2 SEC (11.7-14.0) H Prothrombin Time INR 1.2 (0.8-1.1) H Sodium Level 128 mmol/L (136-145) L Potassium Level 3.4 mmol/L (3.5-5.1) L Chloride Level 90 mmol/L (98-107) L Carbon Dioxide Level 25 mmol/L (21-32) Anion Gap 13 (6-14) Blood Urea Nitrogen 19 mg/dL (8-26) Creatinine 1.5 mg/dL (0.7-1.3) H Estimated GFR (Cockcroft-Gault) 46.3 Glucose Level 105 mg/dL (70-99) H Lactic Acid Level 3.1 mmol/L (0.4-2.0) H Calcium Level 9.2 mg/dL (8.5-10.1) Magnesium Level 1.8 mg/dL (1.8-2.4) Total Bilirubin 0.6 mg/dL (0.2-1.0) Direct Bilirubin 0.2 mg/dL (0.0-0.2) Aspartate Amino Transferase (AST) 25 U/L (15-37) Alanine Aminotransferase (ALT) 34 U/L (16-63) Alkaline Phosphatase 77 U/L (46-116) Creatine Kinase 565 U/L (39-308) H Creatine Kinase MB (Mass) 2.4 ng/mL (0.0-3.6) Creatine Kinase MB Relative Index 0.4 % (0-4) Troponin I Quantitative 0.043 ng/mL (0.000-0.055) JG-Pfp-U-Type Natriuretic Peptide 1492 pg/mL (0-124) H Total Protein 7.6 g/dL (6.4-8.2) Albumin 3.5 g/dL (3.4-5.0) Lipase 175 U/L (73-393) Thyroid Stimulating Hormone (TSH) 1.874 uIU/mL (0.358-3.74) Ethyl Alcohol Level < 10 mg/dL (0-10) Laboratory Tests 07/25/17 18:00 Laboratory Tests 07/25/17 18:00 EKG EKG EKG shows sinus rhythm with rate of [address] elevations, T-wave inversions noted in leads aVL, left axis deviation noted, QTC 451 ms, as interpreted by me. Radiology/Procedures Radiology/Procedures [facility] [address] [place] [address] IMAGING REPORT Signed PATIENT: SWATI SAUER ACCOUNT: [id number] : 1945 LOCATION: ER AGE: 72 SEX: M EXAM STATUS: REG ER ORD. PHYSICIAN: KAYLI CALI MD REASON: AMS PROCEDURE: CT HEAD WO CONTRAST Clinical Indication: Altered mental status. Technique: Study is dated July 25, 2017. CT images of the head were obtained from the skull base to the vertex without IV contrast. There are no comparison studies available. One or more of the following individualized dose reduction techniques were utilized for this examination: 1. Automated exposure control 2. Adjustment of the mA and/or kV according to patient size 3. Use of iterative reconstruction technique Findings: There is diffuse, symmetric prominence of the ventricles and subarachnoid spaces consistent with age-related parenchymal volume loss. There are areas of scattered decreased attenuation in the supratentorial white matter. While nonspecific, findings are likely secondary to small vessel ischemic disease. There is no hemorrhage, extraaxial fluid collection, mass, or midline shift. There is no large vascular distribution infarct. There are vascular calcifications. The posterior fossa and brainstem are unremarkable. Orbits are normal. The visualized paranasal sinuses are clear. There is no skull fracture appreciated on bone level images. Impression: No acute intracranial findings. Brain parenchymal volume loss and minimal probable small vessel ischemic disease. Electronically signed by: Rambo Magaña MD (07/25/2017 6:24 PM) [facility] DICTATED and SIGNED BY: RAMBO MAGAÑA MD DATE: 07/25/171822 CC: KAYLI CALI MD; FEDERICO WISE MD ~ Impressions: Transient loss of consciousness History of melanoma Elevated lactic acid Mild hyponatremia Course & Med Decision Making Course & Med Decision Making Pertinent Labs and Imaging studies reviewed. (See chart for details) He exam he does not have any focal neurological deficits. He does not remember the episode. He does have a history of melanoma and had surgery regarding this. CT head nonacute area UA is still pending at this time. We will order MRI with and without contrast and admit to the hospitalist. He does have an elevated lactic acid 3.1 and sodium of 128. His sodium is been close to this number in the past the highest been is 136. We'll give 1 L normal saline. Dragon Disclaimer Dragon Disclaimer This electronic medical record was generated, in whole or in part, using a voice recognition dictation system. Departure Departure Impression: Primary Impression: Altered mental status Disposition: ADMITTED INPATIENT Admitting Physician: Laney Brenner Condition: STABLE Referrals: FEDERICO WISE MD (PCP) Problem Qualifiers Primary Impression: Altered mental status Altered mental status type: transient alteration of awareness Qualified Codes : R40.4 - Transient alteration of awareness KAYLI CALI MD Jul 25, 2017 17:25
[2017-07-25 18:20] LABS: BASO # 0.1 x10^3/uL (0.0-0.2); BASO % 0 % (0-3); EOS % 0 % (0-3); HEMATOCRIT 32.7 % (39.0-53.0); HEMOGLOBIN 11.2 g/dL (13.0-17.5); LYMPH # 0.4 x10^3/uL (1.0-4.8); LYMPH % 2 % (24-48); MEAN CORPUSCULAR HEMOGLOBIN 28 pg (25-35); MEAN CORPUSCULAR HGB CONC 34 g/dL (31-37); MEAN CORPUSCULAR VOLUME 81 fL (79-100); MONO % 7 % (0-9); NEUT % 91 % (31-73); PLATELET COUNT 247 x10^3/uL (140-400); RED BLOOD COUNT 4.02 x10^6/uL (4.30-5.70); WHITE BLOOD COUNT 18.9 x10^3/uL (4.0-11.0)
--- NOTE | 2017-07-25 18:28 | RAD ---
Clinical Indication: Altered mental status. Technique: Study is dated July 25, 2017. CT images of the head were obtained from the skull base to the vertex without IV contrast. There are no comparison studies available. One or more of the following individualized dose reduction techniques were utilized for this examination: 1. Automated exposure control 2. Adjustment of the mA and/or kV according to patient size 3. Use of iterative reconstruction technique Findings: There is diffuse, symmetric prominence of the ventricles and subarachnoid spaces consistent with age-related parenchymal volume loss. There are areas of scattered decreased attenuation in the supratentorial white matter. While nonspecific, findings are likely secondary to small vessel ischemic disease. There is no hemorrhage, extraaxial fluid collection, mass, or midline shift. There is no large vascular distribution infarct. There are vascular calcifications. The posterior fossa and brainstem are unremarkable. Orbits are normal. The visualized paranasal sinuses are clear. There is no skull fracture appreciated on bone level images. Impression: No acute intracranial findings. Brain parenchymal volume loss and minimal probable small vessel ischemic disease. Electronically signed by: Rambo Magaña MD (07/25/2017 6:24 PM) [facility]
[2017-07-25 18:29] LABS: INR 1.2 (0.8-1.1); PROTHROMBIN TIME PATIENT 14.2 SEC (11.7-14.0)
[2017-07-25 18:45] LABS: CALCIUM 9.2 mg/dL (8.5-10.1); CREATININE 1.5 mg/dL (0.7-1.3); GFR 46.3; POTASSIUM 3.4 mmol/L (3.5-5.1)
[2017-07-25 18:53] LABS: ALBUMIN 3.5 g/dL (3.4-5.0); DIRECT BILIRUBIN 0.2 mg/dL (0.0-0.2); MAGNESIUM 1.8 mg/dL (1.8-2.4); TOTAL BILIRUBIN 0.6 mg/dL (0.2-1.0); TOTAL PROTEIN 7.6 g/dL (6.4-8.2)
[2017-07-25 18:57] LABS: CKMB MASS 2.4 ng/mL (0.0-3.6)
[2017-07-25 19:28] LABS: PLT ESTIMATE INCREASED (ADEQUATE)
[2017-07-25 19:29] LABS: POLYCHROMASIA SLIGHT; SCHISTOCYTES OCC; TARGET CELLS OCC
[2017-07-25] MEDS ORDERED: IV NORMAL SALINE 1000ML BAG 1,000 ML IV ONE ×2 (19:45)
[2017-07-25] MEDS ORDERED: POTASSIUM CHLORIDE 20 MEQ TABLET.ER. PO ONE (19:45)
--- NOTE | 2017-07-25 19:45 | PDOC1 ---
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 Some weird events like he was covered in sweat in a trench coat, in the car for maybe an hr and has no recollection of that, Admitted with a normal CT head, and unimpressive blood work, Neuro exaa is non focal, VS ok, Agreeable to be admitted with MRI in AM and neuro on board He is on 22 diff meds, HTN, SSRi, DM meds Past Medical History Cardiovascular: HTN, Hyperlipidemia Psych: Depression Endocrine: Diabetes Past Surgical History Past Surgical History: No pertinent history Family History Family History: Hypertension Social History Smoke: No ALCOHOL: none Drugs: None Current Medications Current Medications Active Scripts Active Colace (Docusate Sodium) 100 Mg Capsule 100 Mg PO BID 60 Days Methocarbamol 750 Mg Tablet 750 Mg PO TID 60 Days Hydrocodone-Apap 7.5-325 (Hydrocodone Bit/Acetaminophen) 1 Each Tablet 1 Tab PO PRN Q6HRS PRN 60 Days Reported Tamsulosin Hcl 0.4 Mg Cap.er.24h 0.4 Mg PO DAILY Metformin Hcl 500 Mg Tablet 500 Mg PO DAILYBFRSUP Gabapentin 100 Mg Capsule 100 Mg PO TID Lovastatin 20 Mg Tablet 1 Tab PO DAILY Pyiuviqbzr-Onsjfkaqsed-Czr Tab (Gluc/Jonah-Msm#2/C/D3/Vidal/Born) 1 Each Tablet 1 Each PO BID Glimepiride 1 Mg Tablet 0.5 Tab PO DAILY Losartan Potassium 100 Mg Tablet 100 Mg PO DAILY Diclofenac Sodium 75 Mg Tablet.dr 75 Mg PO BID Nitrostat (Nitroglycerin) 0.4 Mg Tab.subl 0.4 Mg SL PRN Viagra (Sildenafil Citrate) 100 Mg Tablet 100 Mg PO PRN Potassium Chloride 10 Meq Tablet.er 10 Meq PO DAILY Metformin Hcl 1,000 Mg Tablet 1,000 Mg PO DAILY08 Hydrochlorothiazide Tablet (Hydrochlorothiazide) 25 Mg Tablet 25 Mg PO DAILY Metoprolol Tartrate 100 Mg Tablet 50 Mg PO BID Flovent 50MCG Diskus (Fluticasone Propionate) 50 Mcg Disk.w.dev 50 Mcg IH DAILY Citalopram Hbr (Citalopram Hydrobromide) 20 Mg Tablet 20 Mg PO BID Nifedipine Er (Nifedipine) 90 Mg Tab.er.24 90 Mg PO DAILY Multivitamins (Multivitamin) 1 Each Tablet 1 Each PO DAILY Fish Oil 1,200 Mg Fish Oil (Fish Oil/Dha/Epa) 1 Each Capsule 1 Each PO BID Allergies Allergies: Coded Allergies: Iodinated Contrast- Oral and IV Dye (Verified Allergy, Severe, 03/07/17) Penicillins (Verified Allergy, Intermediate, 03/07/17) tomato (Verified Allergy, Intermediate, 03/07/17) simvastatin (Verified Adverse Reaction, Mild, 03/07/17) LEG PAIN ROS Review of System as per HPI,and also some chronic knee pain, back pain, shoulder pain Physical Exam General: Oriented X3, Cooperative, No acute distress, Other (slow to thought and speech) HEENT: PERRLA Lungs: Clear to auscultation, Normal air movement Heart: S1S2, RRR, no thrills, no rubs, no gallops, no murmurs Cardiovascular: S1, S2 Abdomen: Normal bowel sounds, Soft, No tenderness, No hepatosplenomegaly, No masses Male Genitals Exam: normal genitalia, normal prostate Rectal Exam: not examined PELVIC: Nml ext genitalia Extremities: No clubbing, No cyanosis, No edema, Normal pulses, No tenderness/ swelling Skin: No rashes, No breakdown, No significant lesion Neuro: Normal gait, Normal speech, Strength at 5/5 X4 ext, Normal tone, Sensation intact, Cranial nerves 3-12 NL, Reflexes 2+ Psych/Mental Status: Mental status NL, Mood NL Vitals Vitals Vital Signs Date Time Temp Pulse Resp B/P (MAP) Pulse Ox O2 Delivery O2 Flow Rate FiO2 07/25/17 19:00 90 15 124/57 (79) Room Air 07/25/17 18:30 96 07/25/17 17:15 98.5 98.5 Labs Labs Laboratory Tests Test 07/25/17 18:00 White Blood Count 18.9 x10^3/uL (4.0-11.0) Red Blood Count 4.02 x10^6/uL (4.30-5.70) Hemoglobin 11.2 g/dL (13.0-17.5) Hematocrit 32.7 % (39.0-53.0) Mean Corpuscular Volume 81 fL (79-100) Mean Corpuscular Hemoglobin 28 pg (25-35) Mean Corpuscular Hemoglobin Concent 34 g/dL (31-37) Red Cell Distribution Width 14.0 % (11.5-14.5) Platelet Count 247 x10^3/uL (140-400) Neutrophils (%) (Auto) 91 % (31-73) Lymphocytes (%) (Auto) 2 % (24-48) Monocytes (%) (Auto) 7 % (0-9) Eosinophils (%) (Auto) 0 % (0-3) Basophils (%) (Auto) 0 % (0-3) Neutrophils # (Auto) 17.1 x10^3uL (1.8-7.7) Lymphocytes # (Auto) 0.4 x10^3/uL (1.0-4.8) Monocytes # (Auto) 1.4 x10^3/uL (0.0-1.1) Eosinophils # (Auto) 0.0 x10^3/uL (0.0-0.7) Basophils # (Auto) 0.1 x10^3/uL (0.0-0.2) Segmented Neutrophils % 92 % (35-66) Lymphocytes % 2 % (24-48) Monocytes % 6 % (0-10) Platelet Estimate Increased (ADEQUATE) Polychromasia Slight Target Cells Occ Schistocytes Occ Prothrombin Time 14.2 SEC (11.7-14.0) Prothromb Time International Ratio 1.2 (0.8-1.1) Sodium Level 128 mmol/L (136-145) Potassium Level 3.4 mmol/L (3.5-5.1) Chloride Level 90 mmol/L (98-107) Carbon Dioxide Level 25 mmol/L (21-32) Anion Gap 13 (6-14) Blood Urea Nitrogen 19 mg/dL (8-26) Creatinine 1.5 mg/dL (0.7-1.3) Estimated GFR (Cockcroft-Gault) 46.3 Glucose Level 105 mg/dL (70-99) Lactic Acid Level 3.1 mmol/L (0.4-2.0) Calcium Level 9.2 mg/dL (8.5-10.1) Magnesium Level 1.8 mg/dL (1.8-2.4) Total Bilirubin 0.6 mg/dL (0.2-1.0) Direct Bilirubin 0.2 mg/dL (0.0-0.2) Aspartate Amino Transf (AST/SGOT) 25 U/L (15-37) Alanine Aminotransferase (ALT/SGPT) 34 U/L (16-63) Alkaline Phosphatase 77 U/L (46-116) Creatine Kinase 565 U/L (39-308) Creatine Kinase MB (Mass) 2.4 ng/mL (0.0-3.6) Creatine Kinase MB Relative Index 0.4 % (0-4) Troponin I Quantitative 0.043 ng/mL (0.000-0.055) PZ-Fzc-A-Type Natriuretic Peptide 1492 pg/mL (0-124) Total Protein 7.6 g/dL (6.4-8.2) Albumin 3.5 g/dL (3.4-5.0) Lipase 175 U/L (73-393) Thyroid Stimulating Hormone (TSH) 1.874 uIU/mL (0.358-3.74) Ethyl Alcohol Level < 10 mg/dL (0-10) Laboratory Tests Test 07/25/17 18:00 White Blood Count 18.9 x10^3/uL (4.0-11.0) Red Blood Count 4.02 x10^6/uL (4.30-5.70) Hemoglobin 11.2 g/dL (13.0-17.5) Hematocrit 32.7 % (39.0-53.0) Mean Corpuscular Volume 81 fL (79-100) Mean Corpuscular Hemoglobin 28 pg (25-35) Mean Corpuscular Hemoglobin Concent 34 g/dL (31-37) Red Cell Distribution Width 14.0 % (11.5-14.5) Platelet Count 247 x10^3/uL (140-400) Neutrophils (%) (Auto) 91 % (31-73) Lymphocytes (%) (Auto) 2 % (24-48) Monocytes (%) (Auto) 7 % (0-9) Eosinophils (%) (Auto) 0 % (0-3) Basophils (%) (Auto) 0 % (0-3) Neutrophils # (Auto) 17.1 x10^3uL (1.8-7.7) Lymphocytes # (Auto) 0.4 x10^3/uL (1.0-4.8) Monocytes # (Auto) 1.4 x10^3/uL (0.0-1.1) Eosinophils # (Auto) 0.0 x10^3/uL (0.0-0.7) Basophils # (Auto) 0.1 x10^3/uL (0.0-0.2) Segmented Neutrophils % 92 % (35-66) Lymphocytes % 2 % (24-48) Monocytes % 6 % (0-10) Platelet Estimate Increased (ADEQUATE) Polychromasia Slight Target Cells Occ Schistocytes Occ Prothrombin Time 14.2 SEC (11.7-14.0) Prothromb Time International Ratio 1.2 (0.8-1.1) Sodium Level 128 mmol/L (136-145) Potassium Level 3.4 mmol/L (3.5-5.1) Chloride Level 90 mmol/L (98-107) Carbon Dioxide Level 25 mmol/L (21-32) Anion Gap 13 (6-14) Blood Urea Nitrogen 19 mg/dL (8-26) Creatinine 1.5 mg/dL (0.7-1.3) Estimated GFR (Cockcroft-Gault) 46.3 Glucose Level 105 mg/dL (70-99) Lactic Acid Level 3.1 mmol/L (0.4-2.0) Calcium Level 9.2 mg/dL (8.5-10.1) Magnesium Level 1.8 mg/dL (1.8-2.4) Total Bilirubin 0.6 mg/dL (0.2-1.0) Direct Bilirubin 0.2 mg/dL (0.0-0.2) Aspartate Amino Transf (AST/SGOT) 25 U/L (15-37) Alanine Aminotransferase (ALT/SGPT) 34 U/L (16-63) Alkaline Phosphatase 77 U/L (46-116) Creatine Kinase 565 U/L (39-308) Creatine Kinase MB (Mass) 2.4 ng/mL (0.0-3.6) Creatine Kinase MB Relative Index 0.4 % (0-4) Troponin I Quantitative 0.043 ng/mL (0.000-0.055) CV-Oxv-M-Type Natriuretic Peptide 1492 pg/mL (0-124) Total Protein 7.6 g/dL (6.4-8.2) Albumin 3.5 g/dL (3.4-5.0) Lipase 175 U/L (73-393) Thyroid Stimulating Hormone (TSH) 1.874 uIU/mL (0.358-3.74) Ethyl Alcohol Level < 10 mg/dL (0-10) VTE Prophylaxis Ordered VTE Prophylaxis Devices: Yes VTE Pharmacological Prophylaxi: Yes Assessment/Plan Assessment/Plan 1. TRansient amnesia, Oddities in behavior, forgetfullness - could be beginning dementia? He lacks PROJECT ADMIN infectious sxs like headache, no nuchal rigidity no fevers, no white ct. CT head neg, Check MRI for any acute pathology, Add esr. get neuro. 2. HTN, DM2, dyslipidemia - depression NOS - all chronic stable 3. Polypharmacy - on 22 home meds 4. Geriatric, fall risk PLan: Admit Neuro consult MRI resume home meds PT/OT CLose neuro checks check esr, tsh, b12, folate Further recs pending test results Sen at ER dw whole family plan of care MICHELLE OGLESBY MD Jul 25, 2017 19:45
[2017-07-25 19:53] LABS: BILIRUBIN,URINE NEGATIVE (NEG); GLUCOSE,URINE NEGATIVE (NEG); NITRITE,URINE NEGATIVE (NEG); PROTEIN,URINE 100 mg/dL (NEG-TRACE); UROBILINOGEN,URINE 0.2 mg/dL (0.2 mg/dL)
[2017-07-25 19:56] LABS: BARBITURATES NEG (NEG); BENZODIAZEPINES NEG (NEG); CANNABINOIDS NEG (NEG); COCAINE NEG (NEG); METHADONE NEG (NEG); OPIATES NEG (NEG); PHENCYCLIDINE NEG (NEG)
[2017-07-25] MEDS ORDERED: DEXTROSE 50% 25 GM / 50ML DISP.SYRIN. IV PRN (20:00)
[2017-07-25 20:32] LABS: BACTERIA,URINE 0 /HPF (0-FEW); SQUAMOUS EPITHELIAL CELL,UR OCC /LPF; WBC,URINE OCC /HPF (0-4)
[2017-07-25 20:45] VITALS: BP 134/61
[2017-07-25] MEDS ORDERED: NON FORMULARY ITEM (Gluc/Chon-Msm#2/C/D3/Mang/Born (Glucosamin-Chondroitin-Msm Tab) 1 EACH PO SCH (21:00)
[2017-07-25] MEDS: DOCUSATE SODIUM 100 MG CAPSULE. PO SCH (21:40)
[2017-07-25] MEDS: OMEGA-3 FATTY ACIDS/FISH OIL 1,000 MG CAPSULE. PO SCH (21:40)
[2017-07-25] MEDS: METOPROLOL TART IMMED RELEASE 50 MG TABLET. PO SCH (21:41)
[2017-07-25] MEDS: DICLOFENAC SODIUM 25 MG TABLET.DR PO SCH (21:42)
[2017-07-25] MEDS: CITALOPRAM 20 MG TABLET. PO SCH (21:42)
[2017-07-25] MEDS: METHOCARBAMOL 750 MG TABLET PO SCH (21:42)
[2017-07-25] MEDS: GABAPENTIN 100 MG CAPSULE. PO SCH (21:43)
[2017-07-25] MEDS: ATORVASTATIN CALCIUM 10 MG TABLET. PO SCH (21:43)
[2017-07-25 23:30] VITALS: BP 137/37
[2017-07-26] VITALS (22 sets, daily range): BP systolic 11–139; BP diastolic 43–71
[2017-07-26] MEDS ORDERED: ALBUTEROL SULFATE 2.5 MG/3 ML NEBU. NEB PRN (01:30)
--- NOTE | 2017-07-26 02:20 | EKG ---
[facility] [address] [place] [address] Test Date: 2017-07-26 Test Time: 02:16:36 Pat Name: SWATI SAUER Department: Room: 2 Gender: M [employer]: KIRSTEN : 1945 Requested By: MICHELLE OGLESBY Order Number: [id number] Reading MD: Chidi Zimmerman Measurements Intervals [place] Rate: 95 P: 54 ME: 176 QRS: -50 QRSD: 124 T: 101 QT: 372 QTc: 471 Interpretive Statements SINUS RHYTHM LVH WITH REPOLARIZATION ABNORMALITY LAFB Poor R-wave progression Electronically Signed On 07-26-2017 7:22:58 CDT by Chidi Zimmerman
[2017-07-26 02:28] LABS: BASO % 0 % (0-3); EOS % 0 % (0-3); HEMATOCRIT 38.1 % (39.0-53.0); HEMOGLOBIN 12.6 g/dL (13.0-17.5); LYMPH # 0.6 x10^3/uL (1.0-4.8); LYMPH % 3 % (24-48); MEAN CORPUSCULAR HEMOGLOBIN 27 pg (25-35); MEAN CORPUSCULAR HGB CONC 33 g/dL (31-37); MEAN CORPUSCULAR VOLUME 83 fL (79-100); MONO % 8 % (0-9); NEUT % 89 % (31-73); PLATELET COUNT 260 x10^3/uL (140-400); RED BLOOD COUNT 4.61 x10^6/uL (4.30-5.70); RED CELL DISTRIBUTION WIDTH 14.1 % (11.5-14.5); WHITE BLOOD COUNT 24.3 x10^3/uL (4.0-11.0)
[2017-07-26 02:39] LABS: CALCIUM 8.7 mg/dL (8.5-10.1); CREATININE 1.1 mg/dL (0.7-1.3); GFR 66.2; POTASSIUM 3.3 mmol/L (3.5-5.1)
[2017-07-26 02:41] LABS: CORRECTED PCO2 ABG 41 mmHg; CORRECTED PH ABG 7.39; CORRECTED PO2 ABG 49 mmHg; HCO3 ABG 24 mmol/L (21-28); SAT O2 ABG 82 % (92-99)
[2017-07-26 02:43] LABS: PCO2 ABG 39 mmHg (35-46); PO2 ABG 46 mmHg (65-108)
[2017-07-26 02:53] LABS: CKMB MASS 17.8 ng/mL (0.0-3.6)
[2017-07-26] MEDS ORDERED: HEPARIN 25,000UTS/500ML PREMIX 500 ML IV PRN (03:30)
[2017-07-26] MEDS ORDERED: HEPARIN for IV BOLUS 10,000 UNIT/10 ML VIAL. IV PRN (03:30)
--- NOTE | 2017-07-26 03:39 | RAD ---
INDICATION: hypoxia, elevated d-dimer COMPARISON: None. TECHNIQUE: Grayscale, color and doppler ultrasound images were obtained of the bilateral lower extremity venous vasculature. RIGHT: No thrombus identified in the common femoral vein, femoral vein, popliteal vein or visualized calf veins. LEFT: No thrombus identified in the common femoral vein, femoral vein, popliteal vein or visualized calf veins. IMPRESSION: 1. No thrombus identified in deep venous system of bilateral lower extremities. Electronically signed by: Mac Heredia MD (07/26/2017 3:35 AM) [email or web address]
[2017-07-26] MEDS: ANTI-COAG MONITOR BY PHARMACY. MC PRN ×2 (03:58→09:27)
--- NOTE | 2017-07-26 06:00 | RAD ---
INDICATION: SHORT OF BREATH
SENT OLD FILM FROM 07.25.17 COMPARISON: July 25, 2017 FINDINGS: Single view of chest obtained. Interstitial and groundglass opacities seen bilaterally. Enlarged cardiac silhouette. IMPRESSION: Interval increase in interstitial and alveolar opacities bilaterally which could be seen with pulmonary edema or multifocal infiltrate. Electronically signed by: Mac Heredia MD (07/26/2017 5:57 AM) [id number]
--- NOTE | 2017-07-26 06:23 | RAD ---
Indication: Shortness of breath with decreased oxygen saturation Technique: Static images are obtained of both lungs following inhalation of 15 mCi xenon-133 and again following IV administration of 5 mCi of 99 M technetium MAA. Comparison: Chest x-ray earlier same day Findings: Patchy defects are seen within the bilateral lungs. No definite defect is seen within the lungs on perfusion images without definite corresponding defect on the ventilation on the frontal or posterior view. There are some that are better seen on the oblique and lateral images therefore cannot tell if they are matched or not. Impression: 1. There are some perfusion defects that are better seen on oblique and lateral images therefore cannot assess whether they are matched or not. On the anterior and posterior images there are no definite mismatched defects. Overall the exam is likely in the low probability range despite these limitations. Electronically signed by: Mac Heredia MD (07/26/2017 6:19 AM) [facility]
[2017-07-26 06:24] LABS: HCO3 ABG 22 mmol/L (21-28); PCO2 ABG 29 mmHg (35-46); PO2 ABG 138 mmHg (65-108); SAT O2 ABG 99 % (92-99)
--- NOTE | 2017-07-26 07:35 | PDOC ---
Provider Note Provider Note Patient briefly seen and examined. Chart reviewed. While talking to patient he notified me that he has seen Dr. Lopez in the past. Will have nursing staff call Dr. Lopez. Discussed with patient that he has a mild NSTEMI but more importantly, has elevated WBC, fever and recurrent back pain with mental status changes more concerning for sepsis. Treatment per primary. Pls call with any questions. Thanks. LÓPEZ PRIEST MD Jul 26, 2017 07:35
[2017-07-26] MEDS: IPRATRPIUM/ALBUTEROL 0.5/2.5MG 3 ML NEBU. NEB SCH ×4 (07:57→20:03)
[2017-07-26] MEDS ORDERED: POTASSIUM CHLORIDE 10 MEQ TABLET.ER. PO SCH (08:00)
[2017-07-26] MEDS: INSULIN ASPART 300 UNITS/3 ML INSULN.PEN SQ SCH ×3 (08:00→17:00)
--- NOTE | 2017-07-26 08:22 | PDOC ---
Infectious Disease Note ROS ROS Vital Sign Vital Signs Vital Signs Date Time Temp Pulse Resp B/P (MAP) Pulse Ox O2 Delivery O2 Flow Rate FiO2 07/26/17 07:39 Nasal Cannula 5.0 07/26/17 07:17 102.1 81 20 103/52 (69) 90 102.1 Labs Lab Laboratory Tests Test 07/25/17 18:00 07/25/17 18:59 07/26/17 01:51 07/26/17 02:04 White Blood Count 18.9 x10^3/uL (4.0-11.0) Red Blood Count 4.02 x10^6/uL (4.30-5.70) Hemoglobin 11.2 g/dL (13.0-17.5) Hematocrit 32.7 % (39.0-53.0) Mean Corpuscular Volume 81 fL (79-100) Mean Corpuscular Hemoglobin 28 pg (25-35) Mean Corpuscular Hemoglobin Concent 34 g/dL (31-37) Red Cell Distribution Width 14.0 % (11.5-14.5) Platelet Count 247 x10^3/uL (140-400) Neutrophils (%) (Auto) 91 % (31-73) Lymphocytes (%) (Auto) 2 % (24-48) Monocytes (%) (Auto) 7 % (0-9) Eosinophils (%) (Auto) 0 % (0-3) Basophils (%) (Auto) 0 % (0-3) Neutrophils # (Auto) 17.1 x10^3uL (1.8-7.7) Lymphocytes # (Auto) 0.4 x10^3/uL (1.0-4.8) Monocytes # (Auto) 1.4 x10^3/uL (0.0-1.1) Eosinophils # (Auto) 0.0 x10^3/uL (0.0-0.7) Basophils # (Auto) 0.1 x10^3/uL (0.0-0.2) Segmented Neutrophils % 92 % (35-66) Lymphocytes % 2 % (24-48) Monocytes % 6 % (0-10) Platelet Estimate Increased (ADEQUATE) Polychromasia Slight Target Cells Occ Schistocytes Occ Prothrombin Time 14.2 SEC (11.7-14.0) Prothromb Time International Ratio 1.2 (0.8-1.1) Sodium Level 128 mmol/L (136-145) Potassium Level 3.4 mmol/L (3.5-5.1) Chloride Level 90 mmol/L (98-107) Carbon Dioxide Level 25 mmol/L (21-32) Anion Gap 13 (6-14) Blood Urea Nitrogen 19 mg/dL (8-26) Creatinine 1.5 mg/dL (0.7-1.3) Estimated GFR (Cockcroft-Gault) 46.3 Glucose Level 105 mg/dL (70-99) Lactic Acid Level 3.1 mmol/L (0.4-2.0) Calcium Level 9.2 mg/dL (8.5-10.1) Magnesium Level 1.8 mg/dL (1.8-2.4) Total Bilirubin 0.6 mg/dL (0.2-1.0) Direct Bilirubin 0.2 mg/dL (0.0-0.2) Aspartate Amino Transf (AST/SGOT) 25 U/L (15-37) Alanine Aminotransferase (ALT/SGPT) 34 U/L (16-63) Alkaline Phosphatase 77 U/L (46-116) Creatine Kinase 565 U/L (39-308) Creatine Kinase MB (Mass) 2.4 ng/mL (0.0-3.6) Creatine Kinase MB Relative Index 0.4 % (0-4) Troponin I Quantitative 0.043 ng/mL (0.000-0.055) YJ-Qju-P-Type Natriuretic Peptide 1492 pg/mL (0-124) Total Protein 7.6 g/dL (6.4-8.2) Albumin 3.5 g/dL (3.4-5.0) Lipase 175 U/L (73-393) Thyroid Stimulating Hormone (TSH) 1.874 uIU/mL (0.358-3.74) Ethyl Alcohol Level < 10 mg/dL (0-10) Urine Color Yellow Urine Clarity Clear Urine pH 6.0 Urine Specific [place] 1.015 Urine Protein 100 mg/dL (NEG-TRACE) Urine Glucose (UA) Negative mg/dL (NEG) Urine Ketones (Stick) Negative mg/dL (NEG) Urine Blood Large (NEG) Urine Nitrite Negative (NEG) Urine Bilirubin Negative (NEG) Urine Urobilinogen Dipstick 0.2 mg/dL (0.2 mg/dL) Urine Leukocyte Esterase Negative (NEG) Urine RBC 11-20 /HPF (0-2) Urine WBC Occ /HPF (0-4) Urine Squamous Epithelial Cells Occ /LPF Urine Bacteria 0 /HPF (0-FEW) Urine Opiates Screen Neg (NEG) Urine Methadone Screen Neg (NEG) Urine Barbiturates Neg (NEG) Urine Phencyclidine Screen Neg (NEG) Urine Amphetamine/Methamphetamine Neg (NEG) Urine Benzodiazepines Screen Neg (NEG) Urine Cocaine Screen Neg (NEG) Urine Cannabinoids Screen Neg (NEG) Urine Ethyl Alcohol Neg (NEG) Glucose (Fingerstick) 182 mg/dL (70-99) O2 Saturation 82 % (92-99) Arterial Blood pH 7.40 (7.35-7.45) Arterial Blood pH (Temp corrected) 7.39 Arterial Blood pCO2 at Patient Temp 39 mmHg (35-46) Arterial Blood pCO2 (Temp correct) 41 mmHg Arterial Blood pO2 at Patient Temp 46 mmHg (65-108) Arterial Blood pO2 (Temp corrected) 49 mmHg Arterial Blood HCO3 24 mmol/L (21-28) Arterial Blood Base Excess -1 mmol/L (-3-3) FiO2 100.0 Test 07/26/17 02:10 07/26/17 02:15 07/26/17 03:30 White Blood Count 24.3 x10^3/uL (4.0-11.0) Red Blood Count 4.61 x10^6/uL (4.30-5.70) Hemoglobin 12.6 g/dL (13.0-17.5) Hematocrit 38.1 % (39.0-53.0) Mean Corpuscular Volume 83 fL (79-100) Mean Corpuscular Hemoglobin 27 pg (25-35) Mean Corpuscular Hemoglobin Concent 33 g/dL (31-37) Red Cell Distribution Width 14.1 % (11.5-14.5) Platelet Count 260 x10^3/uL (140-400) Neutrophils (%) (Auto) 89 % (31-73) Lymphocytes (%) (Auto) 3 % (24-48) Monocytes (%) (Auto) 8 % (0-9) Eosinophils (%) (Auto) 0 % (0-3) Basophils (%) (Auto) 0 % (0-3) Neutrophils # (Auto) 21.7 x10^3uL (1.8-7.7) Lymphocytes # (Auto) 0.6 x10^3/uL (1.0-4.8) Monocytes # (Auto) 1.9 x10^3/uL (0.0-1.1) Eosinophils # (Auto) 0.0 x10^3/uL (0.0-0.7) Basophils # (Auto) 0.0 x10^3/uL (0.0-0.2) D-Dimer (Natalya) 2.06 ug/mlFEU (0.00-0.50) Sodium Level 127 mmol/L (136-145) Potassium Level 3.3 mmol/L (3.5-5.1) Chloride Level 90 mmol/L (98-107) Carbon Dioxide Level 24 mmol/L (21-32) Anion Gap 13 (6-14) Blood Urea Nitrogen 18 mg/dL (8-26) Creatinine 1.1 mg/dL (0.7-1.3) Estimated GFR (Cockcroft-Gault) 66.2 Glucose Level 185 mg/dL (70-99) Calcium Level 8.7 mg/dL (8.5-10.1) Troponin I Quantitative 4.900 ng/mL (0.000-0.055) Creatine Kinase 3442 U/L (39-308) Creatine Kinase MB (Mass) 17.8 ng/mL (0.0-3.6) Creatine Kinase MB Relative Index 0.5 % (0-4) Lactic Acid Level 1.0 mmol/L (0.4-2.0) Objective Assessment Fever ? infection vs cardiac event Leukocytosis- as above Elevated Troponin/CK Back pain and h/o MSSA infection PCN allergy - tolerated Cefazolin Hyponatremia Plan Plan of Care F/u Blood cults Begin Vanc/Meropenem MRI Lumbar spine F/u labs D/w 35 mins cc # [id number] JANEE HSIEH MD Jul 26, 2017 08:22
[2017-07-26] MEDS ORDERED: VANCOMYCIN 2 GM in IV NORMAL SALINE 500ML BAG 500 ML IV ONE (08:30)
[2017-07-26] MEDS: MEROPENEM 1 GM in IV NORMAL SALINE 100ML 100 ML IV SCH ×3 (08:32→21:35)
[2017-07-26] MEDS: GABAPENTIN 100 MG CAPSULE. PO SCH ×3 (08:32→20:47)
[2017-07-26] MEDS: CITALOPRAM 20 MG TABLET. PO SCH ×2 (08:33→20:46)
[2017-07-26] MEDS: OMEGA-3 FATTY ACIDS/FISH OIL 1,000 MG CAPSULE. PO SCH ×2 (08:33→20:46)
[2017-07-26] MEDS: TAMSULOSIN 0.4 MG CAP.ER.24H. PO SCH (08:33)
[2017-07-26] MEDS: METOPROLOL TART IMMED RELEASE 50 MG TABLET. PO SCH ×2 (08:33→20:46)
[2017-07-26] MEDS: hydroCHLOROthiazide 25 MG TABLET PO SCH (08:34)
[2017-07-26] MEDS: GLIMEPIRIDE 2 MG TABLET. PO SCH (08:34)
[2017-07-26] MEDS: MULTIVITAMIN with MINERAL TABLET. PO SCH (08:34)
[2017-07-26] MEDS: DOCUSATE SODIUM 100 MG CAPSULE. PO SCH ×2 (08:34→20:45)
[2017-07-26] MEDS: LOSARTAN POTASSIUM 50 MG TABLET. PO SCH (08:34)
[2017-07-26] MEDS: FLUTICASONE 50MCG/NASAL SPRAY 16GM BOTTLE. NS SCH (08:38)
[2017-07-26] MEDS: DICLOFENAC SODIUM 25 MG TABLET.DR PO SCH ×2 (08:38→20:45)
[2017-07-26] MEDS: METHOCARBAMOL 750 MG TABLET PO SCH ×2 (08:38→14:00)
[2017-07-26] MEDS ORDERED: FLU VACC QS2017-18 (36MOS+)/PF 0.5 ML SYRINGE. VAX IM ONE (09:00)
[2017-07-26] MEDS ORDERED: INFLUENZA VAX SCREEN BY RX. MC ONE (09:00)
--- NOTE | 2017-07-26 09:10 | RAD ---
Portable AP chest. History: Syncope AP view was taken of the chest. Lungs are clear. Heart is normal in size. There is no effusion. Impression: 1. No acute chest disease.
[2017-07-26] MEDS: VANCOMYCIN PER PHARMACY MC PRN (09:12)
--- NOTE | 2017-07-26 10:08 | PDOC ---
PROGRESS NOTES Chief Complaint Chief Complaint Assessment/Plan 1. TRansient amnesia, Oddities in behavior, forgetfullness - could be beginning dementia? He lacks BLIND LACER infectious sxs like headache, no nuchal rigidity no fevers, no white ct. CT head neg, Check MRI for any acute pathology, Add esr. get neuro. 2. HTN, DM2, dyslipidemia - depression NOS - all chronic stable 3. Polypharmacy - on 22 home meds 4. Geriatric, fall risk 5. FEVERS, LEUKOCYTOSIS, SIRS < POA 6. Hip pain, shoulder pain, back pain 7. Recent multiple non injury falls 8. NSTEMI 9. HYpoxic respi failure with neg dopplers and low prob VQ History of Present Illness History of Present Illness Multiple calls last night to me, culminated in a rapid response for hypoxia sats 70s on 4 LNC, Distant smoking hx. I did order stat ABG - ph 7.4 CO2 40s. 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[place] [employer]: Transferred to ICU Heparin gtt ACS protocol Cards consult STat trop I again today - trend this COnsult dr Courtney re MSK pains ESTEPHANIA for ACS Lipid panel COnsult pulmo re hypoxia Keep in icu dw pt and management internship and staff CC 37 mins Vitals Vitals Vital Signs Date Time Temp Pulse Resp B/P (MAP) Pulse Ox O2 Delivery O2 Flow Rate FiO2 07/26/17 08:34 94 128/63 07/26/17 08:00 22 95 Nasal Cannula 5.0 07/26/17 07:17 102.1 102.1 Physical Exam General: Oriented X3, Cooperative, No acute distress, Other (slow to thought and speech) Abdomen: Normal bowel sounds, Soft, No tenderness, No hepatosplenomegaly, No masses Extremities: No clubbing, No cyanosis, No edema, Normal pulses, No tenderness/ swelling Skin: No rashes, No breakdown, No significant lesion Labs LABS Laboratory Tests Test 07/25/17 18:00 07/25/17 18:59 07/26/17 01:51 07/26/17 02:04 White Blood Count 18.9 x10^3/uL (4.0-11.0) Red Blood Count 4.02 x10^6/uL (4.30-5.70) Hemoglobin 11.2 g/dL (13.0-17.5) Hematocrit 32.7 % (39.0-53.0) Mean Corpuscular Volume 81 fL (79-100) Mean Corpuscular Hemoglobin 28 pg (25-35) Mean Corpuscular Hemoglobin Concent 34 g/dL (31-37) Red Cell Distribution Width 14.0 % (11.5-14.5) Platelet Count 247 x10^3/uL (140-400) Neutrophils (%) (Auto) 91 % (31-73) Lymphocytes (%) (Auto) 2 % (24-48) Monocytes (%) (Auto) 7 % (0-9) Eosinophils (%) (Auto) 0 % (0-3) Basophils (%) (Auto) 0 % (0-3) Neutrophils # (Auto) 17.1 x10^3uL (1.8-7.7) Lymphocytes # (Auto) 0.4 x10^3/uL (1.0-4.8) Monocytes # (Auto) 1.4 x10^3/uL (0.0-1.1) Eosinophils # (Auto) 0.0 x10^3/uL (0.0-0.7) Basophils # (Auto) 0.1 x10^3/uL (0.0-0.2) Segmented Neutrophils % 92 % (35-66) Lymphocytes % 2 % (24-48) Monocytes % 6 % (0-10) Platelet Estimate Increased (ADEQUATE) Polychromasia Slight Target Cells Occ Schistocytes Occ Prothrombin Time 14.2 SEC (11.7-14.0) Prothromb Time International Ratio 1.2 (0.8-1.1) Sodium Level 128 mmol/L (136-145) Potassium Level 3.4 mmol/L (3.5-5.1) Chloride Level 90 mmol/L (98-107) Carbon Dioxide Level 25 mmol/L (21-32) Anion Gap 13 (6-14) Blood Urea Nitrogen 19 mg/dL (8-26) Creatinine 1.5 mg/dL (0.7-1.3) Estimated GFR (Cockcroft-Gault) 46.3 Glucose Level 105 mg/dL (70-99) Lactic Acid Level 3.1 mmol/L (0.4-2.0) Calcium Level 9.2 mg/dL (8.5-10.1) Magnesium Level 1.8 mg/dL (1.8-2.4) Total Bilirubin 0.6 mg/dL (0.2-1.0) Direct Bilirubin 0.2 mg/dL (0.0-0.2) Aspartate Amino Transf (AST/SGOT) 25 U/L (15-37) Alanine Aminotransferase (ALT/SGPT) 34 U/L (16-63) Alkaline Phosphatase 77 U/L (46-116) Creatine Kinase 565 U/L (39-308) Creatine Kinase MB (Mass) 2.4 ng/mL (0.0-3.6) Creatine Kinase MB Relative Index 0.4 % (0-4) Troponin I Quantitative 0.043 ng/mL (0.000-0.055) FN-Ety-I-Type Natriuretic Peptide 1492 pg/mL (0-124) Total Protein 7.6 g/dL (6.4-8.2) Albumin 3.5 g/dL (3.4-5.0) Lipase 175 U/L (73-393) Thyroid Stimulating Hormone (TSH) 1.874 uIU/mL (0.358-3.74) Ethyl Alcohol Level < 10 mg/dL (0-10) Urine Color Yellow Urine Clarity Clear Urine pH 6.0 Urine Specific [place] 1.015 Urine Protein 100 mg/dL (NEG-TRACE) Urine Glucose (UA) Negative mg/dL (NEG) Urine Ketones (Stick) Negative mg/dL (NEG) Urine Blood Large (NEG) Urine Nitrite Negative (NEG) Urine Bilirubin Negative (NEG) Urine Urobilinogen Dipstick 0.2 mg/dL (0.2 mg/dL) Urine Leukocyte Esterase Negative (NEG) Urine RBC 11-20 /HPF (0-2) Urine WBC Occ /HPF (0-4) Urine Squamous Epithelial Cells Occ /LPF Urine Bacteria 0 /HPF (0-FEW) Urine Opiates Screen Neg (NEG) Urine Methadone Screen Neg (NEG) Urine Barbiturates Neg (NEG) Urine Phencyclidine Screen Neg (NEG) Urine Amphetamine/Methamphetamine Neg (NEG) Urine Benzodiazepines Screen Neg (NEG) Urine Cocaine Screen Neg (NEG) Urine Cannabinoids Screen Neg (NEG) Urine Ethyl Alcohol Neg (NEG) Glucose (Fingerstick) 182 mg/dL (70-99) O2 Saturation 82 % (92-99) Arterial Blood pH 7.40 (7.35-7.45) Arterial Blood pH (Temp corrected) 7.39 Arterial Blood pCO2 at Patient Temp 39 mmHg (35-46) Arterial Blood pCO2 (Temp correct) 41 mmHg Arterial Blood pO2 at Patient Temp 46 mmHg (65-108) Arterial Blood pO2 (Temp corrected) 49 mmHg Arterial Blood HCO3 24 mmol/L (21-28) Arterial Blood Base Excess -1 mmol/L (-3-3) FiO2 100.0 Test 07/26/17 02:10 07/26/17 02:15 07/26/17 03:30 07/26/17 08:21 White Blood Count 24.3 x10^3/uL (4.0-11.0) Red Blood Count 4.61 x10^6/uL (4.30-5.70) Hemoglobin 12.6 g/dL (13.0-17.5) Hematocrit 38.1 % (39.0-53.0) Mean Corpuscular Volume 83 fL (79-100) Mean Corpuscular Hemoglobin 27 pg (25-35) Mean Corpuscular Hemoglobin Concent 33 g/dL (31-37) Red Cell Distribution Width 14.1 % (11.5-14.5) Platelet Count 260 x10^3/uL (140-400) Neutrophils (%) (Auto) 89 % (31-73) Lymphocytes (%) (Auto) 3 % (24-48) Monocytes (%) (Auto) 8 % (0-9) Eosinophils (%) (Auto) 0 % (0-3) Basophils (%) (Auto) 0 % (0-3) Neutrophils # (Auto) 21.7 x10^3uL (1.8-7.7) Lymphocytes # (Auto) 0.6 x10^3/uL (1.0-4.8) Monocytes # (Auto) 1.9 x10^3/uL (0.0-1.1) Eosinophils # (Auto) 0.0 x10^3/uL (0.0-0.7) Basophils # (Auto) 0.0 x10^3/uL (0.0-0.2) D-Dimer (Natalya) 2.06 ug/mlFEU (0.00-0.50) Sodium Level 127 mmol/L (136-145) Potassium Level 3.3 mmol/L (3.5-5.1) Chloride Level 90 mmol/L (98-107) Carbon Dioxide Level 24 mmol/L (21-32) Anion Gap 13 (6-14) Blood Urea Nitrogen 18 mg/dL (8-26) Creatinine 1.1 mg/dL (0.7-1.3) Estimated GFR (Cockcroft-Gault) 66.2 Glucose Level 185 mg/dL (70-99) Calcium Level 8.7 mg/dL (8.5-10.1) Troponin I Quantitative 4.900 ng/mL (0.000-0.055) Creatine Kinase 3442 U/L (39-308) Creatine Kinase MB (Mass) 17.8 ng/mL (0.0-3.6) Creatine Kinase MB Relative Index 0.5 % (0-4) Lactic Acid Level 1.0 mmol/L (0.4-2.0) Glucose (Fingerstick) 168 mg/dL (70-99) Review of Systems Review of Systems msk pains, hip , shoulders, back, soa Comment Review of Relevant I have reviewed the following items kyler (where applicable) has been applied. Labs Laboratory Tests Test 07/25/17 18:00 07/25/17 18:59 07/26/17 01:51 07/26/17 02:04 White Blood Count 18.9 x10^3/uL (4.0-11.0) Red Blood Count 4.02 x10^6/uL (4.30-5.70) Hemoglobin 11.2 g/dL (13.0-17.5) Hematocrit 32.7 % (39.0-53.0) Mean Corpuscular Volume 81 fL (79-100) Mean Corpuscular Hemoglobin 28 pg (25-35) Mean Corpuscular Hemoglobin Concent 34 g/dL (31-37) Red Cell Distribution Width 14.0 % (11.5-14.5) Platelet Count 247 x10^3/uL (140-400) Neutrophils (%) (Auto) 91 % (31-73) Lymphocytes (%) (Auto) 2 % (24-48) Monocytes (%) (Auto) 7 % (0-9) Eosinophils (%) (Auto) 0 % (0-3) Basophils (%) (Auto) 0 % (0-3) Neutrophils # (Auto) 17.1 x10^3uL (1.8-7.7) Lymphocytes # (Auto) 0.4 x10^3/uL (1.0-4.8) Monocytes # (Auto) 1.4 x10^3/uL (0.0-1.1) Eosinophils # (Auto) 0.0 x10^3/uL (0.0-0.7) Basophils # (Auto) 0.1 x10^3/uL (0.0-0.2) Segmented Neutrophils % 92 % (35-66) Lymphocytes % 2 % (24-48) Monocytes % 6 % (0-10) Platelet Estimate Increased (ADEQUATE) Polychromasia Slight Target Cells Occ Schistocytes Occ Prothrombin Time 14.2 SEC (11.7-14.0) Prothromb Time International Ratio 1.2 (0.8-1.1) Sodium Level 128 mmol/L (136-145) Potassium Level 3.4 mmol/L (3.5-5.1) Chloride Level 90 mmol/L (98-107) Carbon Dioxide Level 25 mmol/L (21-32) Anion Gap 13 (6-14) Blood Urea Nitrogen 19 mg/dL (8-26) Creatinine 1.5 mg/dL (0.7-1.3) Estimated GFR (Cockcroft-Gault) 46.3 Glucose Level 105 mg/dL (70-99) Lactic Acid Level 3.1 mmol/L (0.4-2.0) Calcium Level 9.2 mg/dL (8.5-10.1) Magnesium Level 1.8 mg/dL (1.8-2.4) Total Bilirubin 0.6 mg/dL (0.2-1.0) Direct Bilirubin 0.2 mg/dL (0.0-0.2) Aspartate Amino Transf (AST/SGOT) 25 U/L (15-37) Alanine Aminotransferase (ALT/SGPT) 34 U/L (16-63) Alkaline Phosphatase 77 U/L (46-116) Creatine Kinase 565 U/L (39-308) Creatine Kinase MB (Mass) 2.4 ng/mL (0.0-3.6) Creatine Kinase MB Relative Index 0.4 % (0-4) Troponin I Quantitative 0.043 ng/mL (0.000-0.055) JA-Bgi-C-Type Natriuretic Peptide 1492 pg/mL (0-124) Total Protein 7.6 g/dL (6.4-8.2) Albumin 3.5 g/dL (3.4-5.0) Lipase 175 U/L (73-393) Thyroid Stimulating Hormone (TSH) 1.874 uIU/mL (0.358-3.74) Ethyl Alcohol Level < 10 mg/dL (0-10) Urine Color Yellow Urine Clarity Clear Urine pH 6.0 Urine Specific [place] 1.015 Urine Protein 100 mg/dL (NEG-TRACE) Urine Glucose (UA) Negative mg/dL (NEG) Urine Ketones (Stick) Negative mg/dL (NEG) Urine Blood Large (NEG) Urine Nitrite Negative (NEG) Urine Bilirubin Negative (NEG) Urine Urobilinogen Dipstick 0.2 mg/dL (0.2 mg/dL) Urine Leukocyte Esterase Negative (NEG) Urine RBC 11-20 /HPF (0-2) Urine WBC Occ /HPF (0-4) Urine Squamous Epithelial Cells Occ /LPF Urine Bacteria 0 /HPF (0-FEW) Urine Opiates Screen Neg (NEG) Urine Methadone Screen Neg (NEG) Urine Barbiturates Neg (NEG) Urine Phencyclidine Screen Neg (NEG) Urine Amphetamine/Methamphetamine Neg (NEG) Urine Benzodiazepines Screen Neg (NEG) Urine Cocaine Screen Neg (NEG) Urine Cannabinoids Screen Neg (NEG) Urine Ethyl Alcohol Neg (NEG) Glucose (Fingerstick) 182 mg/dL (70-99) O2 Saturation 82 % (92-99) Arterial Blood pH 7.40 (7.35-7.45) Arterial Blood pH (Temp corrected) 7.39 Arterial Blood pCO2 at Patient Temp 39 mmHg (35-46) Arterial Blood pCO2 (Temp correct) 41 mmHg Arterial Blood pO2 at Patient Temp 46 mmHg (65-108) Arterial Blood pO2 (Temp corrected) 49 mmHg Arterial Blood HCO3 24 mmol/L (21-28) Arterial Blood Base Excess -1 mmol/L (-3-3) FiO2 100.0 Test 07/26/17 02:10 07/26/17 02:15 07/26/17 03:30 07/26/17 08:21 White Blood Count 24.3 x10^3/uL (4.0-11.0) Red Blood Count 4.61 x10^6/uL (4.30-5.70) Hemoglobin 12.6 g/dL (13.0-17.5) Hematocrit 38.1 % (39.0-53.0) Mean Corpuscular Volume 83 fL (79-100) Mean Corpuscular Hemoglobin 27 pg (25-35) Mean Corpuscular Hemoglobin Concent 33 g/dL (31-37) Red Cell Distribution Width 14.1 % (11.5-14.5) Platelet Count 260 x10^3/uL (140-400) Neutrophils (%) (Auto) 89 % (31-73) Lymphocytes (%) (Auto) 3 % (24-48) Monocytes (%) (Auto) 8 % (0-9) Eosinophils (%) (Auto) 0 % (0-3) Basophils (%) (Auto) 0 % (0-3) Neutrophils # (Auto) 21.7 x10^3uL (1.8-7.7) Lymphocytes # (Auto) 0.6 x10^3/uL (1.0-4.8) Monocytes # (Auto) 1.9 x10^3/uL (0.0-1.1) Eosinophils # (Auto) 0.0 x10^3/uL (0.0-0.7) Basophils # (Auto) 0.0 x10^3/uL (0.0-0.2) D-Dimer (Natalya) 2.06 ug/mlFEU (0.00-0.50) Sodium Level 127 mmol/L (136-145) Potassium Level 3.3 mmol/L (3.5-5.1) Chloride Level 90 mmol/L (98-107) Carbon Dioxide Level 24 mmol/L (21-32) Anion Gap 13 (6-14) Blood Urea Nitrogen 18 mg/dL (8-26) Creatinine 1.1 mg/dL (0.7-1.3) Estimated GFR (Cockcroft-Gault) 66.2 Glucose Level 185 mg/dL (70-99) Calcium Level 8.7 mg/dL (8.5-10.1) Troponin I Quantitative 4.900 ng/mL (0.000-0.055) Creatine Kinase 3442 U/L (39-308) Creatine Kinase MB (Mass) 17.8 ng/mL (0.0-3.6) Creatine Kinase MB Relative Index 0.5 % (0-4) Lactic Acid Level 1.0 mmol/L (0.4-2.0) Glucose (Fingerstick) 168 mg/dL (70-99) Laboratory Tests Test 07/25/17 18:00 07/25/17 18:59 07/26/17 01:51 07/26/17 02:04 White Blood Count 18.9 x10^3/uL (4.0-11.0) Red Blood Count 4.02 x10^6/uL (4.30-5.70) Hemoglobin 11.2 g/dL (13.0-17.5) Hematocrit 32.7 % (39.0-53.0) Mean Corpuscular Volume 81 fL (79-100) Mean Corpuscular Hemoglobin 28 pg (25-35) Mean Corpuscular Hemoglobin Concent 34 g/dL (31-37) Red Cell Distribution Width 14.0 % (11.5-14.5) Platelet Count 247 x10^3/uL (140-400) Neutrophils (%) (Auto) 91 % (31-73) Lymphocytes (%) (Auto) 2 % (24-48) Monocytes (%) (Auto) 7 % (0-9) Eosinophils (%) (Auto) 0 % (0-3) Basophils (%) (Auto) 0 % (0-3) Neutrophils # (Auto) 17.1 x10^3uL (1.8-7.7) Lymphocytes # (Auto) 0.4 x10^3/uL (1.0-4.8) Monocytes # (Auto) 1.4 x10^3/uL (0.0-1.1) Eosinophils # (Auto) 0.0 x10^3/uL (0.0-0.7) Basophils # (Auto) 0.1 x10^3/uL (0.0-0.2) Segmented Neutrophils % 92 % (35-66) Lymphocytes % 2 % (24-48) Monocytes % 6 % (0-10) Platelet Estimate Increased (ADEQUATE) Polychromasia Slight Target Cells Occ Schistocytes Occ Prothrombin Time 14.2 SEC (11.7-14.0) Prothromb Time International Ratio 1.2 (0.8-1.1) Sodium Level 128 mmol/L (136-145) Potassium Level 3.4 mmol/L (3.5-5.1) Chloride Level 90 mmol/L (98-107) Carbon Dioxide Level 25 mmol/L (21-32) Anion Gap 13 (6-14) Blood Urea Nitrogen 19 mg/dL (8-26) Creatinine 1.5 mg/dL (0.7-1.3) Estimated GFR (Cockcroft-Gault) 46.3 Glucose Level 105 mg/dL (70-99) Lactic Acid Level 3.1 mmol/L (0.4-2.0) Calcium Level 9.2 mg/dL (8.5-10.1) Magnesium Level 1.8 mg/dL (1.8-2.4) Total Bilirubin 0.6 mg/dL (0.2-1.0) Direct Bilirubin 0.2 mg/dL (0.0-0.2) Aspartate Amino Transf (AST/SGOT) 25 U/L (15-37) Alanine Aminotransferase (ALT/SGPT) 34 U/L (16-63) Alkaline Phosphatase 77 U/L (46-116) Creatine Kinase 565 U/L (39-308) Creatine Kinase MB (Mass) 2.4 ng/mL (0.0-3.6) Creatine Kinase MB Relative Index 0.4 % (0-4) Troponin I Quantitative 0.043 ng/mL (0.000-0.055) FZ-Bte-E-Type Natriuretic Peptide 1492 pg/mL (0-124) Total Protein 7.6 g/dL (6.4-8.2) Albumin 3.5 g/dL (3.4-5.0) Lipase 175 U/L (73-393) Thyroid Stimulating Hormone (TSH) 1.874 uIU/mL (0.358-3.74) Ethyl Alcohol Level < 10 mg/dL (0-10) Urine Color Yellow Urine Clarity Clear Urine pH 6.0 Urine Specific [place] 1.015 Urine Protein 100 mg/dL (NEG-TRACE) Urine Glucose (UA) Negative mg/dL (NEG) Urine Ketones (Stick) Negative mg/dL (NEG) Urine Blood Large (NEG) Urine Nitrite Negative (NEG) Urine Bilirubin Negative (NEG) Urine Urobilinogen Dipstick 0.2 mg/dL (0.2 mg/dL) Urine Leukocyte Esterase Negative (NEG) Urine RBC 11-20 /HPF (0-2) Urine WBC Occ /HPF (0-4) Urine Squamous Epithelial Cells Occ /LPF Urine Bacteria 0 /HPF (0-FEW) Urine Opiates Screen Neg (NEG) Urine Methadone Screen Neg (NEG) Urine Barbiturates Neg (NEG) Urine Phencyclidine Screen Neg (NEG) Urine Amphetamine/Methamphetamine Neg (NEG) Urine Benzodiazepines Screen Neg (NEG) Urine Cocaine Screen Neg (NEG) Urine Cannabinoids Screen Neg (NEG) Urine Ethyl Alcohol Neg (NEG) Glucose (Fingerstick) 182 mg/dL (70-99) O2 Saturation 82 % (92-99) Arterial Blood pH 7.40 (7.35-7.45) Arterial Blood pH (Temp corrected) 7.39 Arterial Blood pCO2 at Patient Temp 39 mmHg (35-46) Arterial Blood pCO2 (Temp correct) 41 mmHg Arterial Blood pO2 at Patient Temp 46 mmHg (65-108) Arterial Blood pO2 (Temp corrected) 49 mmHg Arterial Blood HCO3 24 mmol/L (21-28) Arterial Blood Base Excess -1 mmol/L (-3-3) FiO2 100.0 Test 07/26/17 02:10 07/26/17 02:15 07/26/17 03:30 07/26/17 08:21 White Blood Count 24.3 x10^3/uL (4.0-11.0) Red Blood Count 4.61 x10^6/uL (4.30-5.70) Hemoglobin 12.6 g/dL (13.0-17.5) Hematocrit 38.1 % (39.0-53.0) Mean Corpuscular Volume 83 fL (79-100) Mean Corpuscular Hemoglobin 27 pg (25-35) Mean Corpuscular Hemoglobin Concent 33 g/dL (31-37) Red Cell Distribution Width 14.1 % (11.5-14.5) Platelet Count 260 x10^3/uL (140-400) Neutrophils (%) (Auto) 89 % (31-73) Lymphocytes (%) (Auto) 3 % (24-48) Monocytes (%) (Auto) 8 % (0-9) Eosinophils (%) (Auto) 0 % (0-3) Basophils (%) (Auto) 0 % (0-3) Neutrophils # (Auto) 21.7 x10^3uL (1.8-7.7) Lymphocytes # (Auto) 0.6 x10^3/uL (1.0-4.8) Monocytes # (Auto) 1.9 x10^3/uL (0.0-1.1) Eosinophils # (Auto) 0.0 x10^3/uL (0.0-0.7) Basophils # (Auto) 0.0 x10^3/uL (0.0-0.2) D-Dimer (Natalya) 2.06 ug/mlFEU (0.00-0.50) Sodium Level 127 mmol/L (136-145) Potassium Level 3.3 mmol/L (3.5-5.1) Chloride Level 90 mmol/L (98-107) Carbon Dioxide Level 24 mmol/L (21-32) Anion Gap 13 (6-14) Blood Urea Nitrogen 18 mg/dL (8-26) Creatinine 1.1 mg/dL (0.7-1.3) Estimated GFR (Cockcroft-Gault) 66.2 Glucose Level 185 mg/dL (70-99) Calcium Level 8.7 mg/dL (8.5-10.1) Troponin I Quantitative 4.900 ng/mL (0.000-0.055) Creatine Kinase 3442 U/L (39-308) Creatine Kinase MB (Mass) 17.8 ng/mL (0.0-3.6) Creatine Kinase MB Relative Index 0.5 % (0-4) Lactic Acid Level 1.0 mmol/L (0.4-2.0) Glucose (Fingerstick) 168 mg/dL (70-99) Medications Current Medications Citalopram Hydrobromide (CeleXA) 20 mg BID PO Last administered on 07/26/17t 08 :33; Start 07/25/17 at 21:00 Docusate Sodium (Colace) 100 mg BID PO Last administered on 07/26/17 08:34; Start 07/25/17 at 21:00 Gabapentin (Neurontin) 100 mg TID PO Last administered on 07/26/17 08:32; Start 07/25/17 at 21:00 Hydrochlorothiazide (Hydrodiuril) 25 mg DAILY PO Last administered on 08:34; Start 07/26/17 at 09:00 Acetaminophen/ Hydrocodone Bitart (Lortab 7.5/325) 1 tab PRN Q6HRS PRN PO PAIN ; Start 07/25/17 at 19:45 Metformin HCl (Glucophage) 1,000 mg DAILY08 PO Last administered on 07/26/17 08:33; Start 07/26/17 at 08:00 Metformin HCl (Glucophage) 500 mg DAILYBFRSUP PO ; Start 07/26/17 at 17:00 Methocarbamol (Robaxin) 750 mg TID PO Last administered on 07/26/17 08:38; Start 07/25/17 at 21:00 Potassium Chloride (Klor-Con) 10 meq DAILYWBKFT PO Last administered on 08:33; Start 07/26/17 at 08:00; Stop 07/26/17 at 08:55; Status DC Tamsulosin HCl (Flomax) 0.4 mg DAILY PO Last administered on 07/26/17 08:33; Start 07/26/17 at 09:00 Diclofenac Sodium (Voltaren) 75 mg BID PO Last administered on 07/26/17 08:38 ; Start 07/25/17 at 21:00 Fish Oil (Fish Oil) 1,000 mg BID PO Last administered on 07/26/17 08:33; Start 07/25/17 at 21:00 Fluticasone Propionate (Flonase) 2 spray DAILY NS Last administered on 08:38; Start 07/26/17 at 09:00 Glimepiride (Amaryl) 0.5 mg DAILY PO Last administered on 07/26/17 08:34; Start 07/26/17 at 09:00 Non-Formulary Medication 1 each BID PO ; Start 07/25/17 at 21:00; Status UNV Losartan Potassium (Cozaar) 100 mg DAILY PO Last administered on 07/26/17 08: 34; Start 07/26/17 at 09:00 Atorvastatin Calcium (Lipitor) 5 mg QHS PO Last administered on 07/25/17 21:43 ; Start 07/25/17 at 21:00 Metoprolol Tartrate (Lopressor) 50 mg BID PO Last administered on 07/26/17 08: 33; Start 07/25/17 at 21:00 Multivitamins (Thera M Plus) 1 tab DAILY PO Last administered on 07/26/17 08: 34; Start 07/26/17 at 09:00 Nifedipine (Procardia Xl) 90 mg DAILY PO Last administered on 07/26/17 08:33; Start 07/26/17 at 09:00 Sodium Chloride 1,000 ml @ 1,000 mls/hr 1X ONCE IV Last administered on 21:56; Start 07/25/17 at 19:45; Stop 07/25/17 at 20:44; Status DC Potassium Chloride (Klor-Con) 40 meq 1X ONCE PO Last administered on 21:41; Start 07/25/17 at 19:45; Stop 07/25/17 at 19:48; Status DC Sodium Chloride 1,000 ml @ 100 mls/hr 1X ONCE IV Last administered on 21:53; Start 07/25/17 at 19:45; Stop 07/26/17 at 05:44; Status DC Insulin Aspart (NovoLOG) 0-7 UNITS TIDWMEALS SQ ; Start 07/26/17 at 08:00 Dextrose (Dextrose 50%-Water Syringe) 12.5 gm PRN Q15MIN PRN IV SEE COMMENTS; Start 07/25/17 at 20:00 Info (Do NOT chart on this placeholder) 0.5 each 1X ONCE MC ; Start 07/26/17 at 09:00; Stop 07/26/17 at 09:01; Status UNV Influenza Virus Vaccine Quadrival (Fluarix Quad [id number] Syringe) 0.5 ml ONCE ONCE VAX IM ; Start 07/26/17 at 09:00; Stop 07/26/17 at 09:01; Status DC Albuterol/ Ipratropium (Duoneb) 3 ml RTQID NEB Last administered on 07/26/17 07:57; Start 07/26/17 at 08:00 Albuterol Sulfate (Ventolin Neb Soln) 2.5 mg PRN Q2HRS PRN NEB SHORTNESS OF BREATH Last administered on 07/26/17 02:00; Start 07/26/17 at 01:30 Enoxaparin Sodium (Lovenox 100mg Syringe) 100 mg 1X ONCE SQ Last administered on 07/26/17 02:08; Start 07/26/17 at 02:00; Stop 07/26/17 at 02:04; Status DC Heparin Sodium/ Dextrose 500 ml @ 0 mls/hr CONT PRN IV SEE I/O RECORD Last administered on 07/26/17 03:42; Start 07/26/17 at 03:30 Heparin Sodium (Porcine) (Heparin Sodium) 2,450 unit PRN Q6HRS PRN IV FOR UFH LEVEL LESS THAN 0.2; Start 07/26/17 at 03:30 Info (Anti-Coagulation Monitoring By Pharmacy) 1 each PRN DAILY PRN MC SEE COMMENTS Last administered on 07/26/17 09:27; Start 07/26/17 at 03:30 Vancomycin HCl (Vanco Per Pharmacy) 1 each PRN DAILY PRN MC SEE COMMENTS Last administered on 07/26/17 09:12; Start 07/26/17 at 08:15 Meropenem 1 gm/ Sodium Chloride 100 ml @ 200 mls/hr Q8HRS IV Last administered on 07/26/17 08:32; Start 07/26/17 at 08:30 Vancomycin HCl 2 gm/Sodium Chloride 500 ml @ 250 mls/hr 1X ONCE IV Last administered on 07/26/17 09:27; Start 07/26/17 at 08:30; Stop 07/26/17 at 10:29 Potassium Chloride (Klor-Con) 40 meq DAILYWBKFT PO ; Start 07/26/17 at 09:30 Vancomycin HCl 1.25 gm/Sodium Chloride 250 ml @ 167 mls/hr Q12H IV ; Start at 22:00 Vancomycin HCl 1 each 1X ONCE MC ; Start 07/27/17 at 21:30; Stop 07/27/17 at 21 :31 Active Scripts Active Colace (Docusate Sodium) 100 Mg Capsule 100 Mg PO BID 60 Days Methocarbamol 750 Mg Tablet 750 Mg PO TID 60 Days Hydrocodone-Apap 7.5-325 (Hydrocodone Bit/Acetaminophen) 1 Each Tablet 1 Tab PO PRN Q6HRS PRN 60 Days Reported Tamsulosin Hcl 0.4 Mg Cap.er.24h 0.4 Mg PO DAILY Metformin Hcl 500 Mg Tablet 500 Mg PO DAILYBFRSUP Gabapentin 100 Mg Capsule 100 Mg PO TID Lovastatin 20 Mg Tablet 1 Tab PO DAILY Lohelxqvxw-Jmhzqhjgenj-Tvr Tab (Gluc/Jonah-Msm#2/C/D3/Vidal/Born) 1 Each Tablet 1 Each PO BID Glimepiride 1 Mg Tablet 0.5 Tab PO DAILY Losartan Potassium 100 Mg Tablet 100 Mg PO DAILY Diclofenac Sodium 75 Mg Tablet.dr 75 Mg PO BID Nitrostat (Nitroglycerin) 0.4 Mg Tab.subl 0.4 Mg SL PRN Viagra (Sildenafil Citrate) 100 Mg Tablet 100 Mg PO PRN Potassium Chloride 10 Meq Tablet.er 10 Meq PO DAILY Metformin Hcl 1,000 Mg Tablet 1,000 Mg PO DAILY08 Hydrochlorothiazide Tablet (Hydrochlorothiazide) 25 Mg Tablet 25 Mg PO DAILY Metoprolol Tartrate 100 Mg Tablet 50 Mg PO BID Flovent 50MCG Diskus (Fluticasone Propionate) 50 Mcg Disk.w.dev 50 Mcg IH DAILY Citalopram Hbr (Citalopram Hydrobromide) 20 Mg Tablet 20 Mg PO BID Nifedipine Er (Nifedipine) 90 Mg Tab.er.24 90 Mg PO DAILY Multivitamins (Multivitamin) 1 Each Tablet 1 Each PO DAILY Fish Oil 1,200 Mg Fish Oil (Fish Oil/Dha/Epa) 1 Each Capsule 1 Each PO BID Vitals/I & O Vital Sign - Last 24 Hours 07/25/17 07/25/17 07/25/17 07/25/17 17:15 18:30 18:31 19:00 Temp 98.5 98.5 Pulse 86 92 90 90 Resp 24 23 27 15 B/P (MAP) 148/67 (94) 144/65 (91) 144/65 (91) 124/57 (79) Pulse Ox 96 96 96 O2 Delivery Room Air Room Air Room Air Room Air 07/25/17 07/25/17 07/25/17 07/25/17 19:31 20:01 20:45 21:00 Temp 102.0 102.0 Pulse 92 94 98 Resp 24 28 18 B/P (MAP) 140/66 (90) 147/70 (95) 134/61 (85) Pulse Ox 92 95 89 O2 Delivery Room Air Room Air Room Air Nasal Cannula O2 Flow Rate 2.0 07/25/17 07/25/17 07/26/17 07/26/17 21:41 23:30 01:59 02:30 Temp 100.0 100.0 Pulse 98 90 90 Resp 18 B/P (MAP) 134/61 137/37 (70) 112/61 (78) Pulse Ox 95 86 97 O2 Delivery Nasal Cannula NonRebreather Mask BiPAP/CPAP O2 Flow Rate 2.0 15.0 07/26/17 07/26/17 07/26/17 07/26/17 02:30 02:38 02:45 02:54 Pulse 86 Resp 25 B/P (MAP) 11/58 (42) Pulse Ox 91 97 97 O2 Delivery Bi-pap BiPAP/CPAP BiPAP/CPAP O2 Flow Rate 07/26/17 07/26/17 07/26/17 07/26/17 03:00 03:15 03:30 04:00 Temp 101.4 101.4 Pulse 82 80 76 74 Resp 25 23 21 21 B/P (MAP) 116/61 (79) 124/66 (85) 119/63 (81) 130/64 (86) Pulse Ox 99 100 100 100 O2 Delivery BiPAP/CPAP BiPAP/CPAP BiPAP/CPAP BiPAP/CPAP O2 Flow Rate 07/26/17 07/26/17 07/26/17 07/26/17 04:00 05:00 06:00 06:37 Pulse 70 78 Resp 20 20 B/P (MAP) 120/65 (83) 115/71 (86) Pulse Ox 100 100 93 O2 Delivery Bi-pap BiPAP/CPAP BiPAP/CPAP Nasal Cannula O2 Flow Rate 5.0 07/26/17 07/26/17 07/26/17 07/26/17 07:17 07:39 07:59 08:00 Temp 102.1 102.1 Pulse 81 90 Resp 22 B/P (MAP) 103/52 (69) 139/70 (93) Pulse Ox 90 94 95 O2 Delivery Nasal Cannula Nasal Cannula Nasal Cannula Nasal Cannula O2 Flow Rate 5.0 5.0 6.0 5.0 07/26/17 07/26/17 07/26/17 08:33 08:33 08:34 Pulse 94 94 94 B/P (MAP) 128/63 128/63 128/63 MICHELLE OGLESBY MD Jul 26, 2017 10:08
--- NOTE | 2017-07-26 11:23 | PDOC ---
Provider Note Provider Note dictated KIM HAJI MD Jul 26, 2017 11:23
[2017-07-26] MEDS ORDERED: FUROSEMIDE 40 MG/4 ML VIAL. IVP ONE (11:30)
--- NOTE | 2017-07-26 11:30 | EKG ---
[facility] [address] [place] [address] Test Date: 2017-07-26 Test Time: 11:31:23 Pat Name: SWATI SAUER Department: Room: 109 1 Gender: M Regulatory Administrator: : 1945 Requested By: LÓPEZ PRIEST Order Number: [id number] Reading MD: Prieto Moe Measurements Intervals [place] Rate: 64 P: 34 SC: 166 QRS: -48 QRSD: 106 T: -3 QT: 450 QTc: 469 Interpretive Statements SINUS RHYTHM ABNORMAL LEFT AXIS DEVIATION LEFT ANTERIOR FASCICULAR BLOCK ABNORMAL ECG RI6.01 Electronically Signed On 08-13-2017 10:48:37 CDT by Prieto Moe
--- NOTE | 2017-07-26 11:38 | CONS ---
DATE OF CONSULTATION: ATTENDING PHYSICIAN: Dr. Brenner. REASON FOR CONSULTATION: Respiratory failure. HISTORY OF PRESENT ILLNESS: The patient is a 72-year-old male who presented to the Emergency Room after he had altered mental status. The patient went to work and when he got to work, he was wearing a coat and he was drenched in sweat. They sent him home. On the way home, he ended up pulling into a neighbor's driveway and neighbor saw him in the car and he was noticed to have passed out with the car running. EMS was called and he was brought into the hospital. He was noted to have acute hypoxic RF requiring 100%FIO2. cxr c/w interstitial flores. He has markedly elevated troponin. off BIPAP now. ALLERGIES: ORAL AND IV DYE. PENICILLIN, SIMVASTATIN, AND TOMATOES. REVIEW OF SYSTEMS: Unable to obtain from the patient due to his altered mental status. MEDICATIONS: Reviewed, as listed in the MRAD including antibiotics. He had recent back surgery and had staph infection after that. SOCIAL: non smoker PHYSICAL EXAMINATION: GENERAL: He is not in any obvious respiratory distress, he opens eyes to command and then goes to sleep. VITAL SIGNS: His blood pressure 118/61, pulse ox 95% on 5 liters. NECK: Supple. LUNGS: Diminished breath sounds at the bases. CARDIOVASCULAR: Regular rate. ABDOMEN: Soft. EXTREMITIES: With no pitting edema. LABORATORY DATA: Reviewed. CPK 3442. Troponin is 15.8. IMPRESSION: 1. Acute hypoxic respiratory failure secondary to development of acute interstitial edema. 2. Acute non-ST myocardial infarction with markedly elevated troponin levels. 3. Acute encephalopathy, probably contributed by hypoxia. 4. Increased CPK secondary to rhabdomyolysis. 5. Syncope secondary to myocardial infarction. 6. No significant history of tobacco use. 7. Leukocytosis. The patient had recent back surgery and had staph infection. ID has been following the patient. 8. No evidence of PE by VQ RECOMMENDATIONS: 1. Would recommend diuresis. 2. Follow chest x-rays. 3. P.r.n. BiPAP. 4. Will need a cardiac catheterization. Cardiology has been consulted. 5. Monitor white cell count. 6. P.r.n. bronchodilators. 7. Follow CPKs. 8. Consult Neurology. Discussed with patient's family. Discussed with RN and RT. Critical care time 40 minutes. KIM HAJI MD DR: Kimberly JOB#: [id number] / [id number] PHILOMENA
[2017-07-26] MEDS: POTASSIUM CHLORIDE 20 MEQ TABLET.ER. PO SCH (11:47)
[2017-07-26 12:33] LABS: HCO3 ABG 22 mmol/L (21-28); PCO2 ABG 31 mmHg (35-46); PH ABG 7.47 (7.35-7.45); PO2 ABG 65 mmHg (65-108); SAT O2 ABG 93 % (92-99)
[2017-07-26 12:35] LABS: FIO2 ABG 40
--- NOTE | 2017-07-26 12:48 | EKG ---
[facility] [address] [place] [address] Test Date: 2017-07-25 Test Time: 17:54:50 Pat Name: SWATI SAUER Department: Room: 109 1 Gender: M Consultant: : 1945 Requested By: KAYLI CALI Order Number: [id number] Reading MD: Prieto Moe Measurements Intervals [place] Rate: 88 P: 41 MT: 182 QRS: -51 QRSD: 118 T: 110 QT: 370 QTc: 451 Interpretive Statements SINUS RHYTHM ABNORMAL LEFT AXIS DEVIATION R-S TRANSITION ZONE IN V LEADS DISPLACED TO THE LEFT LEFT ANTERIOR FASCICULAR BLOCK LVH WITH REPOLARIZATION ABNORMALITY RI6.01 Unconfirmed report No previous ECG available for comparison Electronically Signed On 08-13-2017 10:39:25 CDT by Prieto Moe
--- NOTE | 2017-07-26 13:01 | RAD ---
One or more of the following individualized dose reduction techniques were utilized for this examination: 1. Automated exposure control 2. Adjustment of the mA and/or kV according to patient size 3. Use of iterative reconstruction technique CT brain without contrast. History: Altered mental status CT scan of the brain was done without contrast. Comparison is made with a study from one day ago. There is no intracranial hemorrhage. Ventricles are normal in size. There is no mass or shift of the midline. An acute CVA is not identified. MRI is more sensitive for subtle ischemic events. Visualized sinuses are clear. Impression: 1. No intracranial hemorrhage. 2. No acute change compared to one day ago.
[2017-07-26 13:32] LABS: CALCIUM 8.1 mg/dL (8.5-10.1); CREATININE 1.1 mg/dL (0.7-1.3); GFR 66.2; POTASSIUM 3.2 mmol/L (3.5-5.1)
[2017-07-26 13:36] LABS: BASO % 0 % (0-3); EOS % 0 % (0-3); HEMATOCRIT 31.8 % (39.0-53.0); HEMOGLOBIN 10.7 g/dL (13.0-17.5); LYMPH # 0.9 x10^3/uL (1.0-4.8); LYMPH % 6 % (24-48); MEAN CORPUSCULAR HEMOGLOBIN 28 pg (25-35); MEAN CORPUSCULAR HGB CONC 34 g/dL (31-37); MEAN CORPUSCULAR VOLUME 83 fL (79-100); MONO % 8 % (0-9); NEUT % 86 % (31-73); PLATELET COUNT 210 x10^3/uL (140-400); RED BLOOD COUNT 3.85 x10^6/uL (4.30-5.70); RED CELL DISTRIBUTION WIDTH 14.1 % (11.5-14.5); WHITE BLOOD COUNT 16.1 x10^3/uL (4.0-11.0)
[2017-07-26 13:38] LABS: ALBUMIN 2.7 g/dL (3.4-5.0); ALBUMIN/GLOBULIN RATIO 0.7 (1.0-1.7); TOTAL BILIRUBIN 0.5 mg/dL (0.2-1.0); TOTAL PROTEIN 6.8 g/dL (6.4-8.2)
--- NOTE | 2017-07-26 14:29 | PDOC2 ---
CONSULT Date of Consult Date of Consult DATE: 07/26/17 TIME: 14:21 Reason for Consult Reason for Consult: Syncope Referring Physician Referring Physician: Dr Brenner Identification/Chief Complaint Chief Complaint Syncope Problems: History of Present Illness Reason for Visit: This patient is a 72-year-old gentleman that went to work and was sent home because he appeared to be confused and profusely diaphoretic. He attempted to drive home and then was seen by one of his neighbors to [place] Paez to a driveway and to be unresponsive in the car with the car running. The paramedics were called and they brought the patient in. The patient appeared to be in acute respiratory distress and required BiPAP. He gradually improved and became responsive. After arrival he was found to have a minimal elevation of the troponin but the second set was markedly elevated to up of 14. I came to see the patient in the ICU on found him to be responsive to pain but not to verbal commands. The patient's blood pressure and heart rhythm appeared to be stable at this point but the patient is unable to cooperate with history. I am not able to find out if he had been having chest pains are not. The patient's EKG did not show any acute ST segment abnormalities. The patient is febrile and has an elevated white count. He has positive blood cultures initially possibly for staph. Past Medical History Cardiovascular: HTN, Hyperlipidemia Psych: Depression Endocrine: Diabetes Past Surgical History Past Surgical History: No pertinent history Family History Family History: Hypertension Social History No ALCOHOL: none Drugs: None Current Medications Current Medications Current Medications Citalopram Hydrobromide (CeleXA) 20 mg BID PO Last administered on 07/26/17 08 :33; Start 07/25/17 at 21:00 Docusate Sodium (Colace) 100 mg BID PO Last administered on 07/26/17 08:34; Start 07/25/17 at 21:00 Gabapentin (Neurontin) 100 mg TID PO Last administered on 07/26/17 08:32; Start 07/25/17 at 21:00 Hydrochlorothiazide (Hydrodiuril) 25 mg DAILY PO Last administered on 08:34; Start 07/26/17 at 09:00 Acetaminophen/ Hydrocodone Bitart (Lortab 7.5/325) 1 tab PRN Q6HRS PRN PO PAIN ; Start 07/25/17 at 19:45 Metformin HCl (Glucophage) 1,000 mg DAILY08 PO Last administered on 07/26/17 08:33; Start 07/26/17 at 08:00 Metformin HCl (Glucophage) 500 mg DAILYBFRSUP PO ; Start 07/26/17 at 17:00 Methocarbamol (Robaxin) 750 mg TID PO Last administered on 07/26/17 08:38; Start 07/25/17 at 21:00 Potassium Chloride (Klor-Con) 10 meq DAILYWBKFT PO Last administered on 08:33; Start 07/26/17 at 08:00; Stop 07/26/17 at 08:55; Status DC Tamsulosin HCl (Flomax) 0.4 mg DAILY PO Last administered on 07/26/17 08:33; Start 07/26/17 at 09:00 Diclofenac Sodium (Voltaren) 75 mg BID PO Last administered on 07/26/17 08:38 ; Start 07/25/17 at 21:00 Fish Oil (Fish Oil) 1,000 mg BID PO Last administered on 07/26/17 08:33; Start 07/25/17 at 21:00 Fluticasone Propionate (Flonase) 2 spray DAILY NS Last administered on 08:38; Start 07/26/17 at 09:00 Glimepiride (Amaryl) 0.5 mg DAILY PO Last administered on 07/26/17 08:34; Start 07/26/17 at 09:00 Non-Formulary Medication 1 each BID PO ; Start 07/25/17 at 21:00; Status UNV Losartan Potassium (Cozaar) 100 mg DAILY PO Last administered on 07/26/17 08: 34; Start 07/26/17 at 09:00 Atorvastatin Calcium (Lipitor) 5 mg QHS PO Last administered on 07/25/17 21:43 ; Start 07/25/17 at 21:00 Metoprolol Tartrate (Lopressor) 50 mg BID PO Last administered on 07/26/17 08: 33; Start 07/25/17 at 21:00 Multivitamins (Thera M Plus) 1 tab DAILY PO Last administered on 07/26/17 08: 34; Start 07/26/17 at 09:00 Nifedipine (Procardia Xl) 90 mg DAILY PO Last administered on 07/26/17 08:33; Start 07/26/17 at 09:00 Sodium Chloride 1,000 ml @ 1,000 mls/hr 1X ONCE IV Last administered on 21:56; Start 07/25/17 at 19:45; Stop 07/25/17 at 20:44; Status DC Potassium Chloride (Klor-Con) 40 meq 1X ONCE PO Last administered on 21:41; Start 07/25/17 at 19:45; Stop 07/25/17 at 19:48; Status DC Sodium Chloride 1,000 ml @ 100 mls/hr 1X ONCE IV Last administered on 21:53; Start 07/25/17 at 19:45; Stop 07/26/17 at 05:44; Status DC Insulin Aspart (NovoLOG) 0-7 UNITS TIDWMEALS SQ ; Start 07/26/17 at 08:00 Dextrose (Dextrose 50%-Water Syringe) 12.5 gm PRN Q15MIN PRN IV SEE COMMENTS; Start 07/25/17 at 20:00 Info (Do NOT chart on this placeholder) 0.5 each 1X ONCE MC ; Start 07/26/17 at 09:00; Stop 07/26/17 at 09:01; Status UNV Influenza Virus Vaccine Quadrival (Fluarix Quad [id number] Syringe) 0.5 ml ONCE ONCE VAX IM ; Start 07/26/17 at 09:00; Stop 07/26/17 at 09:01; Status DC Albuterol/ Ipratropium (Duoneb) 3 ml RTQID NEB Last administered on 07/26/17 11:27; Start 07/26/17 at 08:00 Albuterol Sulfate (Ventolin Neb Soln) 2.5 mg PRN Q2HRS PRN NEB SHORTNESS OF BREATH Last administered on 07/26/17 02:00; Start 07/26/17 at 01:30 Enoxaparin Sodium (Lovenox 100mg Syringe) 100 mg 1X ONCE SQ Last administered on 07/26/17 02:08; Start 07/26/17 at 02:00; Stop 07/26/17 at 02:04; Status DC Heparin Sodium/ Dextrose 500 ml @ 0 mls/hr CONT PRN IV SEE I/O RECORD Last administered on 07/26/17 03:42; Start 07/26/17 at 03:30 Heparin Sodium (Porcine) (Heparin Sodium) 2,450 unit PRN Q6HRS PRN IV FOR UFH LEVEL LESS THAN 0.2; Start 07/26/17 at 03:30 Info (Anti-Coagulation Monitoring By Pharmacy) 1 each PRN DAILY PRN MC SEE COMMENTS Last administered on 07/26/17 09:27; Start 07/26/17 at 03:30 Vancomycin HCl (Vanco Per Pharmacy) 1 each PRN DAILY PRN MC SEE COMMENTS Last administered on 07/26/17 09:12; Start 07/26/17 at 08:15 Meropenem 1 gm/ Sodium Chloride 100 ml @ 200 mls/hr Q8HRS IV Last administered on 07/26/17 08:32; Start 07/26/17 at 08:30 Vancomycin HCl 2 gm/Sodium Chloride 500 ml @ 250 mls/hr 1X ONCE IV Last administered on 07/26/17 09:27; Start 07/26/17 at 08:30; Stop 07/26/17 at 10:29 ; Status DC Potassium Chloride (Klor-Con) 40 meq DAILYWBKFT PO Last administered on 11:47; Start 07/26/17 at 09:30 Vancomycin HCl 1.25 gm/Sodium Chloride 250 ml @ 167 mls/hr Q12H IV ; Start at 22:00 Vancomycin HCl 1 each 1X ONCE MC ; Start 07/27/17 at 21:30; Stop 07/27/17 at 21 :31 Furosemide (Lasix) 40 mg 1X ONCE IVP Last administered on 07/26/17 11:47; Start 07/26/17 at 11:30; Stop 07/26/17 at 11:31; Status DC Active Scripts Active Colace (Docusate Sodium) 100 Mg Capsule 100 Mg PO BID 60 Days Methocarbamol 750 Mg Tablet 750 Mg PO TID 60 Days Hydrocodone-Apap 7.5-325 (Hydrocodone Bit/Acetaminophen) 1 Each Tablet 1 Tab PO PRN Q6HRS PRN 60 Days Reported Tamsulosin Hcl 0.4 Mg Cap.er.24h 0.4 Mg PO DAILY Metformin Hcl 500 Mg Tablet 500 Mg PO DAILYBFRSUP Gabapentin 100 Mg Capsule 100 Mg PO TID Lovastatin 20 Mg Tablet 1 Tab PO DAILY Uaogysuzjs-Ztamnergvmo-Qrc Tab (Gluc/Jonah-Msm#2/C/D3/Vidal/Born) 1 Each Tablet 1 Each PO BID Glimepiride 1 Mg Tablet 0.5 Tab PO DAILY Losartan Potassium 100 Mg Tablet 100 Mg PO DAILY Diclofenac Sodium 75 Mg Tablet.dr 75 Mg PO BID Nitrostat (Nitroglycerin) 0.4 Mg Tab.subl 0.4 Mg SL PRN Viagra (Sildenafil Citrate) 100 Mg Tablet 100 Mg PO PRN Potassium Chloride 10 Meq Tablet.er 10 Meq PO DAILY Metformin Hcl 1,000 Mg Tablet 1,000 Mg PO DAILY08 Hydrochlorothiazide Tablet (Hydrochlorothiazide) 25 Mg Tablet 25 Mg PO DAILY Metoprolol Tartrate 100 Mg Tablet 50 Mg PO BID Flovent 50MCG Diskus (Fluticasone Propionate) 50 Mcg Disk.w.dev 50 Mcg IH DAILY Citalopram Hbr (Citalopram Hydrobromide) 20 Mg Tablet 20 Mg PO BID Nifedipine Er (Nifedipine) 90 Mg Tab.er.24 90 Mg PO DAILY Multivitamins (Multivitamin) 1 Each Tablet 1 Each PO DAILY Fish Oil 1,200 Mg Fish Oil (Fish Oil/Dha/Epa) 1 Each Capsule 1 Each PO BID Allergies Allergies: Coded Allergies: Iodinated Contrast- Oral and IV Dye (Verified Allergy, Severe, 03/07/17) Penicillins (Verified Allergy, Intermediate, 03/07/17) tomato (Verified Allergy, Intermediate, 03/07/17) simvastatin (Verified Adverse Reaction, Mild, 03/07/17) LEG PAIN Physical Exam General: Other HEENT: Other (oral mucosa dry.) Lungs: Other (patient is tachypneic and moving air, few crackles, no Rales, no wheezing.) Heart: Regular rate, Normal S1, Normal S2 Abdomen: Normal bowel sounds, Soft Extremities: No edema Vitals VITALS Vital Signs Date Time Temp Pulse Resp B/P (MAP) Pulse Ox O2 Delivery O2 Flow Rate FiO2 07/26/17 14:14 65 20 104/54 (71) 93 Nasal Cannula 5.0 07/26/17 07:17 102.1 102.1 Labs Labs Laboratory Tests Test 07/25/17 18:00 07/25/17 18:59 07/26/17 01:51 07/26/17 02:04 White Blood Count 18.9 x10^3/uL (4.0-11.0) Red Blood Count 4.02 x10^6/uL (4.30-5.70) Hemoglobin 11.2 g/dL (13.0-17.5) Hematocrit 32.7 % (39.0-53.0) Mean Corpuscular Volume 81 fL (79-100) Mean Corpuscular Hemoglobin 28 pg (25-35) Mean Corpuscular Hemoglobin Concent 34 g/dL (31-37) Red Cell Distribution Width 14.0 % (11.5-14.5) Platelet Count 247 x10^3/uL (140-400) Neutrophils (%) (Auto) 91 % (31-73) Lymphocytes (%) (Auto) 2 % (24-48) Monocytes (%) (Auto) 7 % (0-9) Eosinophils (%) (Auto) 0 % (0-3) Basophils (%) (Auto) 0 % (0-3) Neutrophils # (Auto) 17.1 x10^3uL (1.8-7.7) Lymphocytes # (Auto) 0.4 x10^3/uL (1.0-4.8) Monocytes # (Auto) 1.4 x10^3/uL (0.0-1.1) Eosinophils # (Auto) 0.0 x10^3/uL (0.0-0.7) Basophils # (Auto) 0.1 x10^3/uL (0.0-0.2) Segmented Neutrophils % 92 % (35-66) Lymphocytes % 2 % (24-48) Monocytes % 6 % (0-10) Platelet Estimate Increased (ADEQUATE) Polychromasia Slight Target Cells Occ Schistocytes Occ Prothrombin Time 14.2 SEC (11.7-14.0) Prothromb Time International Ratio 1.2 (0.8-1.1) Sodium Level 128 mmol/L (136-145) Potassium Level 3.4 mmol/L (3.5-5.1) Chloride Level 90 mmol/L (98-107) Carbon Dioxide Level 25 mmol/L (21-32) Anion Gap 13 (6-14) Blood Urea Nitrogen 19 mg/dL (8-26) Creatinine 1.5 mg/dL (0.7-1.3) Estimated GFR (Cockcroft-Gault) 46.3 Glucose Level 105 mg/dL (70-99) Lactic Acid Level 3.1 mmol/L (0.4-2.0) Calcium Level 9.2 mg/dL (8.5-10.1) Magnesium Level 1.8 mg/dL (1.8-2.4) Total Bilirubin 0.6 mg/dL (0.2-1.0) Direct Bilirubin 0.2 mg/dL (0.0-0.2) Aspartate Amino Transf (AST/SGOT) 25 U/L (15-37) Alanine Aminotransferase (ALT/SGPT) 34 U/L (16-63) Alkaline Phosphatase 77 U/L (46-116) Creatine Kinase 565 U/L (39-308) Creatine Kinase MB (Mass) 2.4 ng/mL (0.0-3.6) Creatine Kinase MB Relative Index 0.4 % (0-4) Troponin I Quantitative 0.043 ng/mL (0.000-0.055) ND-Ldf-K-Type Natriuretic Peptide 1492 pg/mL (0-124) Total Protein 7.6 g/dL (6.4-8.2) Albumin 3.5 g/dL (3.4-5.0) Lipase 175 U/L (73-393) Thyroid Stimulating Hormone (TSH) 1.874 uIU/mL (0.358-3.74) Ethyl Alcohol Level < 10 mg/dL (0-10) Urine Color Yellow Urine Clarity Clear Urine pH 6.0 Urine Specific [place] 1.015 Urine Protein 100 mg/dL (NEG-TRACE) Urine Glucose (UA) Negative mg/dL (NEG) Urine Ketones (Stick) Negative mg/dL (NEG) Urine Blood Large (NEG) Urine Nitrite Negative (NEG) Urine Bilirubin Negative (NEG) Urine Urobilinogen Dipstick 0.2 mg/dL (0.2 mg/dL) Urine Leukocyte Esterase Negative (NEG) Urine RBC 11-20 /HPF (0-2) Urine WBC Occ /HPF (0-4) Urine Squamous Epithelial Cells Occ /LPF Urine Bacteria 0 /HPF (0-FEW) Urine Opiates Screen Neg (NEG) Urine Methadone Screen Neg (NEG) Urine Barbiturates Neg (NEG) Urine Phencyclidine Screen Neg (NEG) Urine Amphetamine/Methamphetamine Neg (NEG) Urine Benzodiazepines Screen Neg (NEG) Urine Cocaine Screen Neg (NEG) Urine Cannabinoids Screen Neg (NEG) Urine Ethyl Alcohol Neg (NEG) Glucose (Fingerstick) 182 mg/dL (70-99) O2 Saturation 82 % (92-99) Arterial Blood pH 7.40 (7.35-7.45) Arterial Blood pH (Temp corrected) 7.39 Arterial Blood pCO2 at Patient Temp 39 mmHg (35-46) Arterial Blood pCO2 (Temp correct) 41 mmHg Arterial Blood pO2 at Patient Temp 46 mmHg (65-108) Arterial Blood pO2 (Temp corrected) 49 mmHg Arterial Blood HCO3 24 mmol/L (21-28) Arterial Blood Base Excess -1 mmol/L (-3-3) FiO2 100.0 Test 07/26/17 02:10 07/26/17 02:15 07/26/17 03:30 07/26/17 06:21 White Blood Count 24.3 x10^3/uL (4.0-11.0) Red Blood Count 4.61 x10^6/uL (4.30-5.70) Hemoglobin 12.6 g/dL (13.0-17.5) Hematocrit 38.1 % (39.0-53.0) Mean Corpuscular Volume 83 fL (79-100) Mean Corpuscular Hemoglobin 27 pg (25-35) Mean Corpuscular Hemoglobin Concent 33 g/dL (31-37) Red Cell Distribution Width 14.1 % (11.5-14.5) Platelet Count 260 x10^3/uL (140-400) Neutrophils (%) (Auto) 89 % (31-73) Lymphocytes (%) (Auto) 3 % (24-48) Monocytes (%) (Auto) 8 % (0-9) Eosinophils (%) (Auto) 0 % (0-3) Basophils (%) (Auto) 0 % (0-3) Neutrophils # (Auto) 21.7 x10^3uL (1.8-7.7) Lymphocytes # (Auto) 0.6 x10^3/uL (1.0-4.8) Monocytes # (Auto) 1.9 x10^3/uL (0.0-1.1) Eosinophils # (Auto) 0.0 x10^3/uL (0.0-0.7) Basophils # (Auto) 0.0 x10^3/uL (0.0-0.2) D-Dimer (Natalya) 2.06 ug/mlFEU (0.00-0.50) Sodium Level 127 mmol/L (136-145) Potassium Level 3.3 mmol/L (3.5-5.1) Chloride Level 90 mmol/L (98-107) Carbon Dioxide Level 24 mmol/L (21-32) Anion Gap 13 (6-14) Blood Urea Nitrogen 18 mg/dL (8-26) Creatinine 1.1 mg/dL (0.7-1.3) Estimated GFR (Cockcroft-Gault) 66.2 Glucose Level 185 mg/dL (70-99) Calcium Level 8.7 mg/dL (8.5-10.1) Troponin I Quantitative 4.900 ng/mL (0.000-0.055) Creatine Kinase 3442 U/L (39-308) Creatine Kinase MB (Mass) 17.8 ng/mL (0.0-3.6) Creatine Kinase MB Relative Index 0.5 % (0-4) Lactic Acid Level 1.0 mmol/L (0.4-2.0) O2 Saturation 99 % (92-99) Arterial Blood pH 7.50 (7.35-7.45) Arterial Blood pCO2 at Patient Temp 29 mmHg (35-46) Arterial Blood pO2 at Patient Temp 138 mmHg (65-108) Arterial Blood HCO3 22 mmol/L (21-28) Arterial Blood Base Excess 0 mmol/L (-3-3) Test 07/26/17 08:21 07/26/17 09:53 07/26/17 11:55 07/26/17 12:21 Glucose (Fingerstick) 168 mg/dL (70-99) 172 mg/dL (70-99) Heparin Anti-Xa Act, Unfractionated 0.55 IU/mL (0.30-0.70) Troponin I Quantitative 15.867 ng/mL (0.000-0.055) O2 Saturation 93 % (92-99) Arterial Blood pH 7.47 (7.35-7.45) Arterial Blood pCO2 at Patient Temp 31 mmHg (35-46) Arterial Blood pO2 at Patient Temp 65 mmHg (65-108) Arterial Blood HCO3 22 mmol/L (21-28) Arterial Blood Base Excess -1 mmol/L (-3-3) FiO2 40 Test 07/26/17 13:15 White Blood Count 16.1 x10^3/uL (4.0-11.0) Red Blood Count 3.85 x10^6/uL (4.30-5.70) Hemoglobin 10.7 g/dL (13.0-17.5) Hematocrit 31.8 % (39.0-53.0) Mean Corpuscular Volume 83 fL (79-100) Mean Corpuscular Hemoglobin 28 pg (25-35) Mean Corpuscular Hemoglobin Concent 34 g/dL (31-37) Red Cell Distribution Width 14.1 % (11.5-14.5) Platelet Count 210 x10^3/uL (140-400) Neutrophils (%) (Auto) 86 % (31-73) Lymphocytes (%) (Auto) 6 % (24-48) Monocytes (%) (Auto) 8 % (0-9) Eosinophils (%) (Auto) 0 % (0-3) Basophils (%) (Auto) 0 % (0-3) Neutrophils # (Auto) 13.8 x10^3uL (1.8-7.7) Lymphocytes # (Auto) 0.9 x10^3/uL (1.0-4.8) Monocytes # (Auto) 1.4 x10^3/uL (0.0-1.1) Eosinophils # (Auto) 0.0 x10^3/uL (0.0-0.7) Basophils # (Auto) 0.0 x10^3/uL (0.0-0.2) Sodium Level 128 mmol/L (136-145) Potassium Level 3.2 mmol/L (3.5-5.1) Chloride Level 94 mmol/L (98-107) Carbon Dioxide Level 24 mmol/L (21-32) Anion Gap 10 (6-14) Blood Urea Nitrogen 19 mg/dL (8-26) Creatinine 1.1 mg/dL (0.7-1.3) Estimated GFR (Cockcroft-Gault) 66.2 BUN/Creatinine Ratio 17 (6-20) Glucose Level 166 mg/dL (70-99) Calcium Level 8.1 mg/dL (8.5-10.1) Total Bilirubin 0.5 mg/dL (0.2-1.0) Aspartate Amino Transf (AST/SGOT) 113 U/L (15-37) Alanine Aminotransferase (ALT/SGPT) 46 U/L (16-63) Alkaline Phosphatase 71 U/L (46-116) Total Protein 6.8 g/dL (6.4-8.2) Albumin 2.7 g/dL (3.4-5.0) Albumin/Globulin Ratio 0.7 (1.0-1.7) Laboratory Tests Test 07/25/17 18:00 07/25/17 18:59 07/26/17 01:51 07/26/17 02:04 White Blood Count 18.9 x10^3/uL (4.0-11.0) Red Blood Count 4.02 x10^6/uL (4.30-5.70) Hemoglobin 11.2 g/dL (13.0-17.5) Hematocrit 32.7 % (39.0-53.0) Mean Corpuscular Volume 81 fL (79-100) Mean Corpuscular Hemoglobin 28 pg (25-35) Mean Corpuscular Hemoglobin Concent 34 g/dL (31-37) Red Cell Distribution Width 14.0 % (11.5-14.5) Platelet Count 247 x10^3/uL (140-400) Neutrophils (%) (Auto) 91 % (31-73) Lymphocytes (%) (Auto) 2 % (24-48) Monocytes (%) (Auto) 7 % (0-9) Eosinophils (%) (Auto) 0 % (0-3) Basophils (%) (Auto) 0 % (0-3) Neutrophils # (Auto) 17.1 x10^3uL (1.8-7.7) Lymphocytes # (Auto) 0.4 x10^3/uL (1.0-4.8) Monocytes # (Auto) 1.4 x10^3/uL (0.0-1.1) Eosinophils # (Auto) 0.0 x10^3/uL (0.0-0.7) Basophils # (Auto) 0.1 x10^3/uL (0.0-0.2) Segmented Neutrophils % 92 % (35-66) Lymphocytes % 2 % (24-48) Monocytes % 6 % (0-10) Platelet Estimate Increased (ADEQUATE) Polychromasia Slight Target Cells Occ Schistocytes Occ Prothrombin Time 14.2 SEC (11.7-14.0) Prothromb Time International Ratio 1.2 (0.8-1.1) Sodium Level 128 mmol/L (136-145) Potassium Level 3.4 mmol/L (3.5-5.1) Chloride Level 90 mmol/L (98-107) Carbon Dioxide Level 25 mmol/L (21-32) Anion Gap 13 (6-14) Blood Urea Nitrogen 19 mg/dL (8-26) Creatinine 1.5 mg/dL (0.7-1.3) Estimated GFR (Cockcroft-Gault) 46.3 Glucose Level 105 mg/dL (70-99) Lactic Acid Level 3.1 mmol/L (0.4-2.0) Calcium Level 9.2 mg/dL (8.5-10.1) Magnesium Level 1.8 mg/dL (1.8-2.4) Total Bilirubin 0.6 mg/dL (0.2-1.0) Direct Bilirubin 0.2 mg/dL (0.0-0.2) Aspartate Amino Transf (AST/SGOT) 25 U/L (15-37) Alanine Aminotransferase (ALT/SGPT) 34 U/L (16-63) Alkaline Phosphatase 77 U/L (46-116) Creatine Kinase 565 U/L (39-308) Creatine Kinase MB (Mass) 2.4 ng/mL (0.0-3.6) Creatine Kinase MB Relative Index 0.4 % (0-4) Troponin I Quantitative 0.043 ng/mL (0.000-0.055) WT-Bux-L-Type Natriuretic Peptide 1492 pg/mL (0-124) Total Protein 7.6 g/dL (6.4-8.2) Albumin 3.5 g/dL (3.4-5.0) Lipase 175 U/L (73-393) Thyroid Stimulating Hormone (TSH) 1.874 uIU/mL (0.358-3.74) Ethyl Alcohol Level < 10 mg/dL (0-10) Urine Color Yellow Urine Clarity Clear Urine pH 6.0 Urine Specific [place] 1.015 Urine Protein 100 mg/dL (NEG-TRACE) Urine Glucose (UA) Negative mg/dL (NEG) Urine Ketones (Stick) Negative mg/dL (NEG) Urine Blood Large (NEG) Urine Nitrite Negative (NEG) Urine Bilirubin Negative (NEG) Urine Urobilinogen Dipstick 0.2 mg/dL (0.2 mg/dL) Urine Leukocyte Esterase Negative (NEG) Urine RBC 11-20 /HPF (0-2) Urine WBC Occ /HPF (0-4) Urine Squamous Epithelial Cells Occ /LPF Urine Bacteria 0 /HPF (0-FEW) Urine Opiates Screen Neg (NEG) Urine Methadone Screen Neg (NEG) Urine Barbiturates Neg (NEG) Urine Phencyclidine Screen Neg (NEG) Urine Amphetamine/Methamphetamine Neg (NEG) Urine Benzodiazepines Screen Neg (NEG) Urine Cocaine Screen Neg (NEG) Urine Cannabinoids Screen Neg (NEG) Urine Ethyl Alcohol Neg (NEG) Glucose (Fingerstick) 182 mg/dL (70-99) O2 Saturation 82 % (92-99) Arterial Blood pH 7.40 (7.35-7.45) Arterial Blood pH (Temp corrected) 7.39 Arterial Blood pCO2 at Patient Temp 39 mmHg (35-46) Arterial Blood pCO2 (Temp correct) 41 mmHg Arterial Blood pO2 at Patient Temp 46 mmHg (65-108) Arterial Blood pO2 (Temp corrected) 49 mmHg Arterial Blood HCO3 24 mmol/L (21-28) Arterial Blood Base Excess -1 mmol/L (-3-3) FiO2 100.0 Test 07/26/17 02:10 07/26/17 02:15 07/26/17 03:30 07/26/17 06:21 White Blood Count 24.3 x10^3/uL (4.0-11.0) Red Blood Count 4.61 x10^6/uL (4.30-5.70) Hemoglobin 12.6 g/dL (13.0-17.5) Hematocrit 38.1 % (39.0-53.0) Mean Corpuscular Volume 83 fL (79-100) Mean Corpuscular Hemoglobin 27 pg (25-35) Mean Corpuscular Hemoglobin Concent 33 g/dL (31-37) Red Cell Distribution Width 14.1 % (11.5-14.5) Platelet Count 260 x10^3/uL (140-400) Neutrophils (%) (Auto) 89 % (31-73) Lymphocytes (%) (Auto) 3 % (24-48) Monocytes (%) (Auto) 8 % (0-9) Eosinophils (%) (Auto) 0 % (0-3) Basophils (%) (Auto) 0 % (0-3) Neutrophils # (Auto) 21.7 x10^3uL (1.8-7.7) Lymphocytes # (Auto) 0.6 x10^3/uL (1.0-4.8) Monocytes # (Auto) 1.9 x10^3/uL (0.0-1.1) Eosinophils # (Auto) 0.0 x10^3/uL (0.0-0.7) Basophils # (Auto) 0.0 x10^3/uL (0.0-0.2) D-Dimer (Natalya) 2.06 ug/mlFEU (0.00-0.50) Sodium Level 127 mmol/L (136-145) Potassium Level 3.3 mmol/L (3.5-5.1) Chloride Level 90 mmol/L (98-107) Carbon Dioxide Level 24 mmol/L (21-32) Anion Gap 13 (6-14) Blood Urea Nitrogen 18 mg/dL (8-26) Creatinine 1.1 mg/dL (0.7-1.3) Estimated GFR (Cockcroft-Gault) 66.2 Glucose Level 185 mg/dL (70-99) Calcium Level 8.7 mg/dL (8.5-10.1) Troponin I Quantitative 4.900 ng/mL (0.000-0.055) Creatine Kinase 3442 U/L (39-308) Creatine Kinase MB (Mass) 17.8 ng/mL (0.0-3.6) Creatine Kinase MB Relative Index 0.5 % (0-4) Lactic Acid Level 1.0 mmol/L (0.4-2.0) O2 Saturation 99 % (92-99) Arterial Blood pH 7.50 (7.35-7.45) Arterial Blood pCO2 at Patient Temp 29 mmHg (35-46) Arterial Blood pO2 at Patient Temp 138 mmHg (65-108) Arterial Blood HCO3 22 mmol/L (21-28) Arterial Blood Base Excess 0 mmol/L (-3-3) Test 07/26/17 08:21 07/26/17 09:53 07/26/17 11:55 07/26/17 12:21 Glucose (Fingerstick) 168 mg/dL (70-99) 172 mg/dL (70-99) Heparin Anti-Xa Act, Unfractionated 0.55 IU/mL (0.30-0.70) Troponin I Quantitative 15.867 ng/mL (0.000-0.055) O2 Saturation 93 % (92-99) Arterial Blood pH 7.47 (7.35-7.45) Arterial Blood pCO2 at Patient Temp 31 mmHg (35-46) Arterial Blood pO2 at Patient Temp 65 mmHg (65-108) Arterial Blood HCO3 22 mmol/L (21-28) Arterial Blood Base Excess -1 mmol/L (-3-3) FiO2 40 Test 07/26/17 13:15 White Blood Count 16.1 x10^3/uL (4.0-11.0) Red Blood Count 3.85 x10^6/uL (4.30-5.70) Hemoglobin 10.7 g/dL (13.0-17.5) Hematocrit 31.8 % (39.0-53.0) Mean Corpuscular Volume 83 fL (79-100) Mean Corpuscular Hemoglobin 28 pg (25-35) Mean Corpuscular Hemoglobin Concent 34 g/dL (31-37) Red Cell Distribution Width 14.1 % (11.5-14.5) Platelet Count 210 x10^3/uL (140-400) Neutrophils (%) (Auto) 86 % (31-73) Lymphocytes (%) (Auto) 6 % (24-48) Monocytes (%) (Auto) 8 % (0-9) Eosinophils (%) (Auto) 0 % (0-3) Basophils (%) (Auto) 0 % (0-3) Neutrophils # (Auto) 13.8 x10^3uL (1.8-7.7) Lymphocytes # (Auto) 0.9 x10^3/uL (1.0-4.8) Monocytes # (Auto) 1.4 x10^3/uL (0.0-1.1) Eosinophils # (Auto) 0.0 x10^3/uL (0.0-0.7) Basophils # (Auto) 0.0 x10^3/uL (0.0-0.2) Sodium Level 128 mmol/L (136-145) Potassium Level 3.2 mmol/L (3.5-5.1) Chloride Level 94 mmol/L (98-107) Carbon Dioxide Level 24 mmol/L (21-32) Anion Gap 10 (6-14) Blood Urea Nitrogen 19 mg/dL (8-26) Creatinine 1.1 mg/dL (0.7-1.3) Estimated GFR (Cockcroft-Gault) 66.2 BUN/Creatinine Ratio 17 (6-20) Glucose Level 166 mg/dL (70-99) Calcium Level 8.1 mg/dL (8.5-10.1) Total Bilirubin 0.5 mg/dL (0.2-1.0) Aspartate Amino Transf (AST/SGOT) 113 U/L (15-37) Alanine Aminotransferase (ALT/SGPT) 46 U/L (16-63) Alkaline Phosphatase 71 U/L (46-116) Total Protein 6.8 g/dL (6.4-8.2) Albumin 2.7 g/dL (3.4-5.0) Albumin/Globulin Ratio 0.7 (1.0-1.7) Assessment/Plan Assessment/Plan This patient comes in with acute mental status changes and possible sepsis. He was in acute respiratory distress when he arrived and had markedly elevated troponin. He may have had a non-STEMI. Whether this is a MA or a hypoxic driven episode is difficult to tell. In view of the patient's blood cultures I feel that he is septic therefore I would recommend that he receive IV antibiotics. The patient will need a heart catheterization at some point but I would like to get the infection under control prior to going to the catheter lab. I will follow the patient with you. Thank you very much for asking me to participate in the care of this patient. BRYCE DAILY MD Jul 26, 2017 14:29
[2017-07-26] MEDS ORDERED: GADOBUTROL 10 MMOL/10 ML VIAL IV ONE (16:15)
[2017-07-26 16:36] LABS: PLT ESTIMATE ADEQUATE (ADEQUATE)
--- NOTE | 2017-07-26 16:48 | RAD ---
Brain MRI, Without Contrast: History: Lethargy acute mental status change and generalized weakness and moments of memory loss Technique: Multiplanar and multisequence imaging of the brain was performed, without contrast. Diffusion weighted sequences were performed. Findings: There is no mass effect or extraaxial fluid collections. There is no hydrocephalus. There is moderate diffuse cerebral atrophy. Fracture Diffusion weighted sequences demonstrate no imaging evidence of acute ischemia. There is no mass. There is no gross bleed. Abnormal signal within the right globe suggests retinal detachment. Impression: 1. Moderate diffuse age expected atrophy. 2. Probable retinal detachment in the right globe likely old. 3. No acute intracranial findings. Electronically signed by: Delfino Tillman III, MD (07/26/2017 4:45 PM) [facility]
[2017-07-26] MEDS: metFORMIN 500 MG TABLET PO SCH (16:59)
--- NOTE | 2017-07-26 17:11 | PDOC2 ---
CONSULT Date of Consult Date of Consult DATE: 07/26/17 TIME: 17:09 Reason for Consult Reason for Consult: Memory problems dementia. History of Present Illness Reason for Visit: This patient is 72-year-old male who is having memory problems information obtained from patient and multiple family members at bedside. Patient is recently having memory problems he will be more forgetful. Patient has this complains of memory problems over several months. Patient is also being evaluated for an STEMI. Patient was hypoxic. Patient IS an was dropping to 40s. Patient is currently alert and oriented denies any complaint of difficulty speaking weakness tingling numbness. An denies any complaint of headache nausea vomiting. He had MRI brain done which showed no acute intracranial findings. Patient also had diffuse age expected atrophy. MRI was negative for any acute stroke. Encephalopathy with underlying memory problems. Patient has a nonfocal neurologic exam patient is currently alert and oriented. MRI negative for any acute stroke. Past Medical History Cardiovascular: HTN, Hyperlipidemia Psych: Depression Endocrine: Diabetes Past Surgical History Past Surgical History: No pertinent history Family History Family History: Hypertension Social History No ALCOHOL: none Drugs: None Current Medications Current Medications Current Medications Citalopram Hydrobromide (CeleXA) 20 mg BID PO Last administered on 07/26/17 08 :33; Start 07/25/17 at 21:00 Docusate Sodium (Colace) 100 mg BID PO Last administered on 07/26/17 08:34; Start 07/25/17 at 21:00 Gabapentin (Neurontin) 100 mg TID PO Last administered on 07/26/17 15:00; Start 07/25/17 at 21:00 Hydrochlorothiazide (Hydrodiuril) 25 mg DAILY PO Last administered on 08:34; Start 07/26/17 at 09:00 Acetaminophen/ Hydrocodone Bitart (Lortab 7.5/325) 1 tab PRN Q6HRS PRN PO PAIN ; Start 07/25/17 at 19:45 Metformin HCl (Glucophage) 1,000 mg DAILY08 PO Last administered on 07/26/17 08:33; Start 07/26/17 at 08:00 Metformin HCl (Glucophage) 500 mg DAILYBFRSUP PO Last administered on 16:59; Start 07/26/17 at 17:00 Methocarbamol (Robaxin) 750 mg TID PO Last administered on 07/26/17 08:38; Start 07/25/17 at 21:00 Potassium Chloride (Klor-Con) 10 meq DAILYWBKFT PO Last administered on 08:33; Start 07/26/17 at 08:00; Stop 07/26/17 at 08:55; Status DC Tamsulosin HCl (Flomax) 0.4 mg DAILY PO Last administered on 07/26/17 08:33; Start 07/26/17 at 09:00 Diclofenac Sodium (Voltaren) 75 mg BID PO Last administered on 07/26/17 08:38 ; Start 07/25/17 at 21:00 Fish Oil (Fish Oil) 1,000 mg BID PO Last administered on 07/26/17 08:33; Start 07/25/17 at 21:00 Fluticasone Propionate (Flonase) 2 spray DAILY NS Last administered on 08:38; Start 07/26/17 at 09:00 Glimepiride (Amaryl) 0.5 mg DAILY PO Last administered on 07/26/17 08:34; Start 07/26/17 at 09:00 Non-Formulary Medication 1 each BID PO ; Start 07/25/17 at 21:00; Status UNV Losartan Potassium (Cozaar) 100 mg DAILY PO Last administered on 07/26/17 08: 34; Start 07/26/17 at 09:00 Atorvastatin Calcium (Lipitor) 5 mg QHS PO Last administered on 07/25/17 21:43 ; Start 07/25/17 at 21:00 Metoprolol Tartrate (Lopressor) 50 mg BID PO Last administered on 07/26/17 08: 33; Start 07/25/17 at 21:00 Multivitamins (Thera M Plus) 1 tab DAILY PO Last administered on 07/26/17 08: 34; Start 07/26/17 at 09:00 Nifedipine (Procardia Xl) 90 mg DAILY PO Last administered on 07/26/17 08:33; Start 07/26/17 at 09:00 Sodium Chloride 1,000 ml @ 1,000 mls/hr 1X ONCE IV Last administered on 21:56; Start 07/25/17 at 19:45; Stop 07/25/17 at 20:44; Status DC Potassium Chloride (Klor-Con) 40 meq 1X ONCE PO Last administered on 21:41; Start 07/25/17 at 19:45; Stop 07/25/17 at 19:48; Status DC Sodium Chloride 1,000 ml @ 100 mls/hr 1X ONCE IV Last administered on 21:53; Start 07/25/17 at 19:45; Stop 07/26/17 at 05:44; Status DC Insulin Aspart (NovoLOG) 0-7 UNITS TIDWMEALS SQ ; Start 07/26/17 at 08:00 Dextrose (Dextrose 50%-Water Syringe) 12.5 gm PRN Q15MIN PRN IV SEE COMMENTS; Start 07/25/17 at 20:00 Info (Do NOT chart on this placeholder) 0.5 each 1X ONCE MC ; Start 07/26/17 at 09:00; Stop 07/26/17 at 09:01; Status UNV Influenza Virus Vaccine Quadrival (Fluarix Quad [id number] Syringe) 0.5 ml ONCE ONCE VAX IM ; Start 07/26/17 at 09:00; Stop 07/26/17 at 09:01; Status DC Albuterol/ Ipratropium (Duoneb) 3 ml RTQID NEB Last administered on 07/26/17 11:27; Start 07/26/17 at 08:00 Albuterol Sulfate (Ventolin Neb Soln) 2.5 mg PRN Q2HRS PRN NEB SHORTNESS OF BREATH Last administered on 07/26/17 02:00; Start 07/26/17 at 01:30 Enoxaparin Sodium (Lovenox 100mg Syringe) 100 mg 1X ONCE SQ Last administered on 07/26/17 02:08; Start 07/26/17 at 02:00; Stop 07/26/17 at 02:04; Status DC Heparin Sodium/ Dextrose 500 ml @ 0 mls/hr CONT PRN IV SEE I/O RECORD Last administered on 07/26/17 03:42; Start 07/26/17 at 03:30 Heparin Sodium (Porcine) (Heparin Sodium) 2,450 unit PRN Q6HRS PRN IV FOR UFH LEVEL LESS THAN 0.2; Start 07/26/17 at 03:30 Info (Anti-Coagulation Monitoring By Pharmacy) 1 each PRN DAILY PRN MC SEE COMMENTS Last administered on 07/26/17 09:27; Start 07/26/17 at 03:30 Vancomycin HCl (Vanco Per Pharmacy) 1 each PRN DAILY PRN MC SEE COMMENTS Last administered on 07/26/17 09:12; Start 07/26/17 at 08:15 Meropenem 1 gm/ Sodium Chloride 100 ml @ 200 mls/hr Q8HRS IV Last administered on 07/26/17 14:59; Start 07/26/17 at 08:30 Vancomycin HCl 2 gm/Sodium Chloride 500 ml @ 250 mls/hr 1X ONCE IV Last administered on 07/26/17 09:27; Start 07/26/17 at 08:30; Stop 07/26/17 at 10:29 ; Status DC Potassium Chloride (Klor-Con) 40 meq DAILYWBKFT PO Last administered on 11:47; Start 07/26/17 at 09:30 Vancomycin HCl 1.25 gm/Sodium Chloride 250 ml @ 167 mls/hr Q12H IV ; Start at 22:00 Vancomycin HCl 1 each 1X ONCE MC ; Start 07/27/17 at 21:30; Stop 07/27/17 at 21 :31 Furosemide (Lasix) 40 mg 1X ONCE IVP Last administered on 07/26/17 11:47; Start 07/26/17 at 11:30; Stop 07/26/17 at 11:31; Status DC Gadobutrol (Gadavist) 10 mmol 1X ONCE IV Last administered on 07/26/17 16:19 ; Start 07/26/17 at 16:15; Stop 07/26/17 at 16:16; Status DC Active Scripts Active Colace (Docusate Sodium) 100 Mg Capsule 100 Mg PO BID 60 Days Methocarbamol 750 Mg Tablet 750 Mg PO TID 60 Days Hydrocodone-Apap 7.5-325 (Hydrocodone Bit/Acetaminophen) 1 Each Tablet 1 Tab PO PRN Q6HRS PRN 60 Days Reported Tamsulosin Hcl 0.4 Mg Cap.er.24h 0.4 Mg PO DAILY Metformin Hcl 500 Mg Tablet 500 Mg PO DAILYBFRSUP Gabapentin 100 Mg Capsule 100 Mg PO TID Lovastatin 20 Mg Tablet 1 Tab PO DAILY Nqhfejvwuk-Ikjlahisxev-Xwu Tab (Gluc/Jonah-Msm#2/C/D3/Vidal/Born) 1 Each Tablet 1 Each PO BID Glimepiride 1 Mg Tablet 0.5 Tab PO DAILY Losartan Potassium 100 Mg Tablet 100 Mg PO DAILY Diclofenac Sodium 75 Mg Tablet.dr 75 Mg PO BID Nitrostat (Nitroglycerin) 0.4 Mg Tab.subl 0.4 Mg SL PRN Viagra (Sildenafil Citrate) 100 Mg Tablet 100 Mg PO PRN Potassium Chloride 10 Meq Tablet.er 10 Meq PO DAILY Metformin Hcl 1,000 Mg Tablet 1,000 Mg PO DAILY08 Hydrochlorothiazide Tablet (Hydrochlorothiazide) 25 Mg Tablet 25 Mg PO DAILY Metoprolol Tartrate 100 Mg Tablet 50 Mg PO BID Flovent 50MCG Diskus (Fluticasone Propionate) 50 Mcg Disk.w.dev 50 Mcg IH DAILY Citalopram Hbr (Citalopram Hydrobromide) 20 Mg Tablet 20 Mg PO BID Nifedipine Er (Nifedipine) 90 Mg Tab.er.24 90 Mg PO DAILY Multivitamins (Multivitamin) 1 Each Tablet 1 Each PO DAILY Fish Oil 1,200 Mg Fish Oil (Fish Oil/Dha/Epa) 1 Each Capsule 1 Each PO BID Allergies Allergies: Coded Allergies: Iodinated Contrast- Oral and IV Dye (Verified Allergy, Severe, 03/07/17) Penicillins (Verified Allergy, Intermediate, 03/07/17) tomato (Verified Allergy, Intermediate, 03/07/17) simvastatin (Verified Adverse Reaction, Mild, 03/07/17) LEG PAIN Physical Exam Physical Exam REVIEW OF SYSTEMS: Otherwise, not [id number] review of systems. PHYSICAL EXAMINATION: General appearance is in acute distress. HEENT: Normocephalic and nontraumatic. Eyes, nose, ears, and throat are unremarkable. Neck is supple. No lymphadenopathy. Cardiovascular: S1, S2, regular rate and rhythm. Pulmonary: Clear to auscultation bilaterally. Abdomen: Bowel sounds are positive. Abdomen is soft, nontender, and nondistended. NEUROLOGICAL EXAMINATION: Alert Oriented to time, place and person. PERRL. EOMI. CN: no focal findings. Muscle tone: within normal. Muscle strength: good DTR: 1- 2 Plantar reflex: Flexor response bilaterally Gait: not examined in bed. Sensory exam: no abnormal findings. No obvious cerebellar signs elicited. Vitals VITALS Vital Signs Date Time Temp Pulse Resp B/P (MAP) Pulse Ox O2 Delivery O2 Flow Rate FiO2 07/26/17 16:00 Nasal Cannula 5.0 07/26/17 15:04 98.4 98.4 07/26/17 14:14 65 20 104/54 (71) 93 Labs Labs Laboratory Tests Test 07/25/17 18:00 07/25/17 18:59 07/26/17 01:51 07/26/17 02:04 White Blood Count 18.9 x10^3/uL (4.0-11.0) Red Blood Count 4.02 x10^6/uL (4.30-5.70) Hemoglobin 11.2 g/dL (13.0-17.5) Hematocrit 32.7 % (39.0-53.0) Mean Corpuscular Volume 81 fL (79-100) Mean Corpuscular Hemoglobin 28 pg (25-35) Mean Corpuscular Hemoglobin Concent 34 g/dL (31-37) Red Cell Distribution Width 14.0 % (11.5-14.5) Platelet Count 247 x10^3/uL (140-400) Neutrophils (%) (Auto) 91 % (31-73) Lymphocytes (%) (Auto) 2 % (24-48) Monocytes (%) (Auto) 7 % (0-9) Eosinophils (%) (Auto) 0 % (0-3) Basophils (%) (Auto) 0 % (0-3) Neutrophils # (Auto) 17.1 x10^3uL (1.8-7.7) Lymphocytes # (Auto) 0.4 x10^3/uL (1.0-4.8) Monocytes # (Auto) 1.4 x10^3/uL (0.0-1.1) Eosinophils # (Auto) 0.0 x10^3/uL (0.0-0.7) Basophils # (Auto) 0.1 x10^3/uL (0.0-0.2) Segmented Neutrophils % 92 % (35-66) Lymphocytes % 2 % (24-48) Monocytes % 6 % (0-10) Platelet Estimate Increased (ADEQUATE) Polychromasia Slight Target Cells Occ Schistocytes Occ Prothrombin Time 14.2 SEC (11.7-14.0) Prothromb Time International Ratio 1.2 (0.8-1.1) Sodium Level 128 mmol/L (136-145) Potassium Level 3.4 mmol/L (3.5-5.1) Chloride Level 90 mmol/L (98-107) Carbon Dioxide Level 25 mmol/L (21-32) Anion Gap 13 (6-14) Blood Urea Nitrogen 19 mg/dL (8-26) Creatinine 1.5 mg/dL (0.7-1.3) Estimated GFR (Cockcroft-Gault) 46.3 Glucose Level 105 mg/dL (70-99) Lactic Acid Level 3.1 mmol/L (0.4-2.0) Calcium Level 9.2 mg/dL (8.5-10.1) Magnesium Level 1.8 mg/dL (1.8-2.4) Total Bilirubin 0.6 mg/dL (0.2-1.0) Direct Bilirubin 0.2 mg/dL (0.0-0.2) Aspartate Amino Transf (AST/SGOT) 25 U/L (15-37) Alanine Aminotransferase (ALT/SGPT) 34 U/L (16-63) Alkaline Phosphatase 77 U/L (46-116) Creatine Kinase 565 U/L (39-308) Creatine Kinase MB (Mass) 2.4 ng/mL (0.0-3.6) Creatine Kinase MB Relative Index 0.4 % (0-4) Troponin I Quantitative 0.043 ng/mL (0.000-0.055) BU-Rof-V-Type Natriuretic Peptide 1492 pg/mL (0-124) Total Protein 7.6 g/dL (6.4-8.2) Albumin 3.5 g/dL (3.4-5.0) Lipase 175 U/L (73-393) Thyroid Stimulating Hormone (TSH) 1.874 uIU/mL (0.358-3.74) Ethyl Alcohol Level < 10 mg/dL (0-10) Urine Color Yellow Urine Clarity Clear Urine pH 6.0 Urine Specific [place] 1.015 Urine Protein 100 mg/dL (NEG-TRACE) Urine Glucose (UA) Negative mg/dL (NEG) Urine Ketones (Stick) Negative mg/dL (NEG) Urine Blood Large (NEG) Urine Nitrite Negative (NEG) Urine Bilirubin Negative (NEG) Urine Urobilinogen Dipstick 0.2 mg/dL (0.2 mg/dL) Urine Leukocyte Esterase Negative (NEG) Urine RBC 11-20 /HPF (0-2) Urine WBC Occ /HPF (0-4) Urine Squamous Epithelial Cells Occ /LPF Urine Bacteria 0 /HPF (0-FEW) Urine Opiates Screen Neg (NEG) Urine Methadone Screen Neg (NEG) Urine Barbiturates Neg (NEG) Urine Phencyclidine Screen Neg (NEG) Urine Amphetamine/Methamphetamine Neg (NEG) Urine Benzodiazepines Screen Neg (NEG) Urine Cocaine Screen Neg (NEG) Urine Cannabinoids Screen Neg (NEG) Urine Ethyl Alcohol Neg (NEG) Glucose (Fingerstick) 182 mg/dL (70-99) O2 Saturation 82 % (92-99) Arterial Blood pH 7.40 (7.35-7.45) Arterial Blood pH (Temp corrected) 7.39 Arterial Blood pCO2 at Patient Temp 39 mmHg (35-46) Arterial Blood pCO2 (Temp correct) 41 mmHg Arterial Blood pO2 at Patient Temp 46 mmHg (65-108) Arterial Blood pO2 (Temp corrected) 49 mmHg Arterial Blood HCO3 24 mmol/L (21-28) Arterial Blood Base Excess -1 mmol/L (-3-3) FiO2 100.0 Test 07/26/17 02:10 07/26/17 02:15 07/26/17 03:30 07/26/17 06:21 White Blood Count 24.3 x10^3/uL (4.0-11.0) Red Blood Count 4.61 x10^6/uL (4.30-5.70) Hemoglobin 12.6 g/dL (13.0-17.5) Hematocrit 38.1 % (39.0-53.0) Mean Corpuscular Volume 83 fL (79-100) Mean Corpuscular Hemoglobin 27 pg (25-35) Mean Corpuscular Hemoglobin Concent 33 g/dL (31-37) Red Cell Distribution Width 14.1 % (11.5-14.5) Platelet Count 260 x10^3/uL (140-400) Neutrophils (%) (Auto) 89 % (31-73) Lymphocytes (%) (Auto) 3 % (24-48) Monocytes (%) (Auto) 8 % (0-9) Eosinophils (%) (Auto) 0 % (0-3) Basophils (%) (Auto) 0 % (0-3) Neutrophils # (Auto) 21.7 x10^3uL (1.8-7.7) Lymphocytes # (Auto) 0.6 x10^3/uL (1.0-4.8) Monocytes # (Auto) 1.9 x10^3/uL (0.0-1.1) Eosinophils # (Auto) 0.0 x10^3/uL (0.0-0.7) Basophils # (Auto) 0.0 x10^3/uL (0.0-0.2) D-Dimer (Natalya) 2.06 ug/mlFEU (0.00-0.50) Sodium Level 127 mmol/L (136-145) Potassium Level 3.3 mmol/L (3.5-5.1) Chloride Level 90 mmol/L (98-107) Carbon Dioxide Level 24 mmol/L (21-32) Anion Gap 13 (6-14) Blood Urea Nitrogen 18 mg/dL (8-26) Creatinine 1.1 mg/dL (0.7-1.3) Estimated GFR (Cockcroft-Gault) 66.2 Glucose Level 185 mg/dL (70-99) Calcium Level 8.7 mg/dL (8.5-10.1) Troponin I Quantitative 4.900 ng/mL (0.000-0.055) Creatine Kinase 3442 U/L (39-308) Creatine Kinase MB (Mass) 17.8 ng/mL (0.0-3.6) Creatine Kinase MB Relative Index 0.5 % (0-4) Lactic Acid Level 1.0 mmol/L (0.4-2.0) O2 Saturation 99 % (92-99) Arterial Blood pH 7.50 (7.35-7.45) Arterial Blood pCO2 at Patient Temp 29 mmHg (35-46) Arterial Blood pO2 at Patient Temp 138 mmHg (65-108) Arterial Blood HCO3 22 mmol/L (21-28) Arterial Blood Base Excess 0 mmol/L (-3-3) Test 07/26/17 08:21 07/26/17 09:53 07/26/17 11:55 07/26/17 12:21 Glucose (Fingerstick) 168 mg/dL (70-99) 172 mg/dL (70-99) Heparin Anti-Xa Act, Unfractionated 0.55 IU/mL (0.30-0.70) Troponin I Quantitative 15.867 ng/mL (0.000-0.055) O2 Saturation 93 % (92-99) Arterial Blood pH 7.47 (7.35-7.45) Arterial Blood pCO2 at Patient Temp 31 mmHg (35-46) Arterial Blood pO2 at Patient Temp 65 mmHg (65-108) Arterial Blood HCO3 22 mmol/L (21-28) Arterial Blood Base Excess -1 mmol/L (-3-3) FiO2 40 Test 07/26/17 13:15 07/26/17 17:00 White Blood Count 16.1 x10^3/uL (4.0-11.0) Red Blood Count 3.85 x10^6/uL (4.30-5.70) Hemoglobin 10.7 g/dL (13.0-17.5) Hematocrit 31.8 % (39.0-53.0) Mean Corpuscular Volume 83 fL (79-100) Mean Corpuscular Hemoglobin 28 pg (25-35) Mean Corpuscular Hemoglobin Concent 34 g/dL (31-37) Red Cell Distribution Width 14.1 % (11.5-14.5) Platelet Count 210 x10^3/uL (140-400) Neutrophils (%) (Auto) 86 % (31-73) Lymphocytes (%) (Auto) 6 % (24-48) Monocytes (%) (Auto) 8 % (0-9) Eosinophils (%) (Auto) 0 % (0-3) Basophils (%) (Auto) 0 % (0-3) Neutrophils # (Auto) 13.8 x10^3uL (1.8-7.7) Lymphocytes # (Auto) 0.9 x10^3/uL (1.0-4.8) Monocytes # (Auto) 1.4 x10^3/uL (0.0-1.1) Eosinophils # (Auto) 0.0 x10^3/uL (0.0-0.7) Basophils # (Auto) 0.0 x10^3/uL (0.0-0.2) Segmented Neutrophils % 88 % (35-66) Band Neutrophils % 3 % (0-9) Lymphocytes % 3 % (24-48) Atypical Lymphocytes % (Manual) 2 % (0-0) Monocytes % 4 % (0-10) Platelet Estimate Adequate (ADEQUATE) Sodium Level 128 mmol/L (136-145) Potassium Level 3.2 mmol/L (3.5-5.1) Chloride Level 94 mmol/L (98-107) Carbon Dioxide Level 24 mmol/L (21-32) Anion Gap 10 (6-14) Blood Urea Nitrogen 19 mg/dL (8-26) Creatinine 1.1 mg/dL (0.7-1.3) Estimated GFR (Cockcroft-Gault) 66.2 BUN/Creatinine Ratio 17 (6-20) Glucose Level 166 mg/dL (70-99) Calcium Level 8.1 mg/dL (8.5-10.1) Total Bilirubin 0.5 mg/dL (0.2-1.0) Aspartate Amino Transf (AST/SGOT) 113 U/L (15-37) Alanine Aminotransferase (ALT/SGPT) 46 U/L (16-63) Alkaline Phosphatase 71 U/L (46-116) Total Protein 6.8 g/dL (6.4-8.2) Albumin 2.7 g/dL (3.4-5.0) Albumin/Globulin Ratio 0.7 (1.0-1.7) Glucose (Fingerstick) 136 mg/dL (70-99) Laboratory Tests Test 07/25/17 18:00 07/25/17 18:59 07/26/17 01:51 07/26/17 02:04 White Blood Count 18.9 x10^3/uL (4.0-11.0) Red Blood Count 4.02 x10^6/uL (4.30-5.70) Hemoglobin 11.2 g/dL (13.0-17.5) Hematocrit 32.7 % (39.0-53.0) Mean Corpuscular Volume 81 fL (79-100) Mean Corpuscular Hemoglobin 28 pg (25-35) Mean Corpuscular Hemoglobin Concent 34 g/dL (31-37) Red Cell Distribution Width 14.0 % (11.5-14.5) Platelet Count 247 x10^3/uL (140-400) Neutrophils (%) (Auto) 91 % (31-73) Lymphocytes (%) (Auto) 2 % (24-48) Monocytes (%) (Auto) 7 % (0-9) Eosinophils (%) (Auto) 0 % (0-3) Basophils (%) (Auto) 0 % (0-3) Neutrophils # (Auto) 17.1 x10^3uL (1.8-7.7) Lymphocytes # (Auto) 0.4 x10^3/uL (1.0-4.8) Monocytes # (Auto) 1.4 x10^3/uL (0.0-1.1) Eosinophils # (Auto) 0.0 x10^3/uL (0.0-0.7) Basophils # (Auto) 0.1 x10^3/uL (0.0-0.2) Segmented Neutrophils % 92 % (35-66) Lymphocytes % 2 % (24-48) Monocytes % 6 % (0-10) Platelet Estimate Increased (ADEQUATE) Polychromasia Slight Target Cells Occ Schistocytes Occ Prothrombin Time 14.2 SEC (11.7-14.0) Prothromb Time International Ratio 1.2 (0.8-1.1) Sodium Level 128 mmol/L (136-145) Potassium Level 3.4 mmol/L (3.5-5.1) Chloride Level 90 mmol/L (98-107) Carbon Dioxide Level 25 mmol/L (21-32) Anion Gap 13 (6-14) Blood Urea Nitrogen 19 mg/dL (8-26) Creatinine 1.5 mg/dL (0.7-1.3) Estimated GFR (Cockcroft-Gault) 46.3 Glucose Level 105 mg/dL (70-99) Lactic Acid Level 3.1 mmol/L (0.4-2.0) Calcium Level 9.2 mg/dL (8.5-10.1) Magnesium Level 1.8 mg/dL (1.8-2.4) Total Bilirubin 0.6 mg/dL (0.2-1.0) Direct Bilirubin 0.2 mg/dL (0.0-0.2) Aspartate Amino Transf (AST/SGOT) 25 U/L (15-37) Alanine Aminotransferase (ALT/SGPT) 34 U/L (16-63) Alkaline Phosphatase 77 U/L (46-116) Creatine Kinase 565 U/L (39-308) Creatine Kinase MB (Mass) 2.4 ng/mL (0.0-3.6) Creatine Kinase MB Relative Index 0.4 % (0-4) Troponin I Quantitative 0.043 ng/mL (0.000-0.055) CL-Avl-E-Type Natriuretic Peptide 1492 pg/mL (0-124) Total Protein 7.6 g/dL (6.4-8.2) Albumin 3.5 g/dL (3.4-5.0) Lipase 175 U/L (73-393) Thyroid Stimulating Hormone (TSH) 1.874 uIU/mL (0.358-3.74) Ethyl Alcohol Level < 10 mg/dL (0-10) Urine Color Yellow Urine Clarity Clear Urine pH 6.0 Urine Specific [place] 1.015 Urine Protein 100 mg/dL (NEG-TRACE) Urine Glucose (UA) Negative mg/dL (NEG) Urine Ketones (Stick) Negative mg/dL (NEG) Urine Blood Large (NEG) Urine Nitrite Negative (NEG) Urine Bilirubin Negative (NEG) Urine Urobilinogen Dipstick 0.2 mg/dL (0.2 mg/dL) Urine Leukocyte Esterase Negative (NEG) Urine RBC 11-20 /HPF (0-2) Urine WBC Occ /HPF (0-4) Urine Squamous Epithelial Cells Occ /LPF Urine Bacteria 0 /HPF (0-FEW) Urine Opiates Screen Neg (NEG) Urine Methadone Screen Neg (NEG) Urine Barbiturates Neg (NEG) Urine Phencyclidine Screen Neg (NEG) Urine Amphetamine/Methamphetamine Neg (NEG) Urine Benzodiazepines Screen Neg (NEG) Urine Cocaine Screen Neg (NEG) Urine Cannabinoids Screen Neg (NEG) Urine Ethyl Alcohol Neg (NEG) Glucose (Fingerstick) 182 mg/dL (70-99) O2 Saturation 82 % (92-99) Arterial Blood pH 7.40 (7.35-7.45) Arterial Blood pH (Temp corrected) 7.39 Arterial Blood pCO2 at Patient Temp 39 mmHg (35-46) Arterial Blood pCO2 (Temp correct) 41 mmHg Arterial Blood pO2 at Patient Temp 46 mmHg (65-108) Arterial Blood pO2 (Temp corrected) 49 mmHg Arterial Blood HCO3 24 mmol/L (21-28) Arterial Blood Base Excess -1 mmol/L (-3-3) FiO2 100.0 Test 07/26/17 02:10 07/26/17 02:15 07/26/17 03:30 07/26/17 06:21 White Blood Count 24.3 x10^3/uL (4.0-11.0) Red Blood Count 4.61 x10^6/uL (4.30-5.70) Hemoglobin 12.6 g/dL (13.0-17.5) Hematocrit 38.1 % (39.0-53.0) Mean Corpuscular Volume 83 fL (79-100) Mean Corpuscular Hemoglobin 27 pg (25-35) Mean Corpuscular Hemoglobin Concent 33 g/dL (31-37) Red Cell Distribution Width 14.1 % (11.5-14.5) Platelet Count 260 x10^3/uL (140-400) Neutrophils (%) (Auto) 89 % (31-73) Lymphocytes (%) (Auto) 3 % (24-48) Monocytes (%) (Auto) 8 % (0-9) Eosinophils (%) (Auto) 0 % (0-3) Basophils (%) (Auto) 0 % (0-3) Neutrophils # (Auto) 21.7 x10^3uL (1.8-7.7) Lymphocytes # (Auto) 0.6 x10^3/uL (1.0-4.8) Monocytes # (Auto) 1.9 x10^3/uL (0.0-1.1) Eosinophils # (Auto) 0.0 x10^3/uL (0.0-0.7) Basophils # (Auto) 0.0 x10^3/uL (0.0-0.2) D-Dimer (Natalya) 2.06 ug/mlFEU (0.00-0.50) Sodium Level 127 mmol/L (136-145) Potassium Level 3.3 mmol/L (3.5-5.1) Chloride Level 90 mmol/L (98-107) Carbon Dioxide Level 24 mmol/L (21-32) Anion Gap 13 (6-14) Blood Urea Nitrogen 18 mg/dL (8-26) Creatinine 1.1 mg/dL (0.7-1.3) Estimated GFR (Cockcroft-Gault) 66.2 Glucose Level 185 mg/dL (70-99) Calcium Level 8.7 mg/dL (8.5-10.1) Troponin I Quantitative 4.900 ng/mL (0.000-0.055) Creatine Kinase 3442 U/L (39-308) Creatine Kinase MB (Mass) 17.8 ng/mL (0.0-3.6) Creatine Kinase MB Relative Index 0.5 % (0-4) Lactic Acid Level 1.0 mmol/L (0.4-2.0) O2 Saturation 99 % (92-99) Arterial Blood pH 7.50 (7.35-7.45) Arterial Blood pCO2 at Patient Temp 29 mmHg (35-46) Arterial Blood pO2 at Patient Temp 138 mmHg (65-108) Arterial Blood HCO3 22 mmol/L (21-28) Arterial Blood Base Excess 0 mmol/L (-3-3) Test 07/26/17 08:21 07/26/17 09:53 07/26/17 11:55 07/26/17 12:21 Glucose (Fingerstick) 168 mg/dL (70-99) 172 mg/dL (70-99) Heparin Anti-Xa Act, Unfractionated 0.55 IU/mL (0.30-0.70) Troponin I Quantitative 15.867 ng/mL (0.000-0.055) O2 Saturation 93 % (92-99) Arterial Blood pH 7.47 (7.35-7.45) Arterial Blood pCO2 at Patient Temp 31 mmHg (35-46) Arterial Blood pO2 at Patient Temp 65 mmHg (65-108) Arterial Blood HCO3 22 mmol/L (21-28) Arterial Blood Base Excess -1 mmol/L (-3-3) FiO2 40 Test 07/26/17 13:15 07/26/17 17:00 White Blood Count 16.1 x10^3/uL (4.0-11.0) Red Blood Count 3.85 x10^6/uL (4.30-5.70) Hemoglobin 10.7 g/dL (13.0-17.5) Hematocrit 31.8 % (39.0-53.0) Mean Corpuscular Volume 83 fL (79-100) Mean Corpuscular Hemoglobin 28 pg (25-35) Mean Corpuscular Hemoglobin Concent 34 g/dL (31-37) Red Cell Distribution Width 14.1 % (11.5-14.5) Platelet Count 210 x10^3/uL (140-400) Neutrophils (%) (Auto) 86 % (31-73) Lymphocytes (%) (Auto) 6 % (24-48) Monocytes (%) (Auto) 8 % (0-9) Eosinophils (%) (Auto) 0 % (0-3) Basophils (%) (Auto) 0 % (0-3) Neutrophils # (Auto) 13.8 x10^3uL (1.8-7.7) Lymphocytes # (Auto) 0.9 x10^3/uL (1.0-4.8) Monocytes # (Auto) 1.4 x10^3/uL (0.0-1.1) Eosinophils # (Auto) 0.0 x10^3/uL (0.0-0.7) Basophils # (Auto) 0.0 x10^3/uL (0.0-0.2) Segmented Neutrophils % 88 % (35-66) Band Neutrophils % 3 % (0-9) Lymphocytes % 3 % (24-48) Atypical Lymphocytes % (Manual) 2 % (0-0) Monocytes % 4 % (0-10) Platelet Estimate Adequate (ADEQUATE) Sodium Level 128 mmol/L (136-145) Potassium Level 3.2 mmol/L (3.5-5.1) Chloride Level 94 mmol/L (98-107) Carbon Dioxide Level 24 mmol/L (21-32) Anion Gap 10 (6-14) Blood Urea Nitrogen 19 mg/dL (8-26) Creatinine 1.1 mg/dL (0.7-1.3) Estimated GFR (Cockcroft-Gault) 66.2 BUN/Creatinine Ratio 17 (6-20) Glucose Level 166 mg/dL (70-99) Calcium Level 8.1 mg/dL (8.5-10.1) Total Bilirubin 0.5 mg/dL (0.2-1.0) Aspartate Amino Transf (AST/SGOT) 113 U/L (15-37) Alanine Aminotransferase (ALT/SGPT) 46 U/L (16-63) Alkaline Phosphatase 71 U/L (46-116) Total Protein 6.8 g/dL (6.4-8.2) Albumin 2.7 g/dL (3.4-5.0) Albumin/Globulin Ratio 0.7 (1.0-1.7) Glucose (Fingerstick) 136 mg/dL (70-99) Assessment/Plan Assessment/Plan This patient is 72-year-old male who is having memory problems information obtained from patient and multiple family members at bedside. Patient is recently having memory problems he will be more forgetful. Patient has this complains of memory problems over several months. Patient is also being evaluated for an STEMI. Patient was hypoxic. Patient IS an was dropping to 40s. Patient is currently alert and oriented denies any complaint of difficulty speaking weakness tingling numbness. An denies any complaint of headache nausea vomiting. He had MRI brain done which showed no acute intracranial findings. Patient also had diffuse age expected atrophy. MRI was negative for any acute stroke. Encephalopathy with underlying memory problems. Patient has a nonfocal neurologic exam patient is currently alert and oriented. MRI negative for any acute stroke. Will need dementia evaluation check vitamin B12 TSH. Can also further be done neuropsychological evaluation as outpatient NSTEMI Cardiac evaluation History of hypertension continue treat and monitor Hyperlipidemia continue medication Diabetes continue treat and monitor Chronic back pain. Check MRI lumbar spine. Check for infectious or metabolic etiology On antibiotics per ID Follow ID recommendations. PTOT evaluation Continue medical management KIM ROA MD Jul 26, 2017 17:11
[2017-07-26] MEDS: ATORVASTATIN CALCIUM 10 MG TABLET. PO SCH (20:45)
[2017-07-26] MEDS: HYDROcodone/APAP 7.5/325MG 1 TAB TABLET PO PRN (21:40)
[2017-07-26] MEDS: VANCOMYCIN 1.25 GM in IV NORMAL SALINE 250ML 250 ML IV SCH (22:10)
--- NOTE | 2017-07-26 23:56 | CONS ---
DATE OF CONSULTATION: 07/26/2017 LOCATION: The patient is in room ICU-9. REQUESTING PHYSICIAN: Dr. Zimmerman. REASON FOR CONSULTATION: Infection and elevated white blood cell count and fever. 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 He was treated with IV cefazolin in the outpatient setting and has been off antibiotics for approximately 2 months or so, per his . He states he has been doing fairly well except 3 days ago, he began to feel weak, had some chills, had some sweats and had some increasing back pain. Normally it runs about a 2/10, but he states it increased to a 6/10. He denies any spasms or trauma, but he did fall twice and also had some confusion. He denies any incontinence increased weakness, but he was brought to [facility] on the 07/25/2017. He was found to have a white count of 18.9. Additionally, he did have a troponin drawn. It was 0.43, but then increased to 4.9 this morning, with a creatinine kinase of 3442. He has had a fever up to 102 and hence I have been consulted. Currently, he is lying in bed. He is on oxygen. States he is doing okay, aside from the above-mentioned complaints. PAST MEDICAL HISTORY: Positive for the above-mentioned MSSA back infection, history of arthritis, gout, hypertension, diabetes, previous cancer with radiation therapy. PAST SURGICAL HISTORY: Positive for previous back surgery, hernia repair, melanoma removal and cardiac stent in the past. Also had microdiskectomy. REVIEW OF SYSTEMS: Otherwise negative except as mentioned above. ALLERGIES: PENICILLIN, BUT HE HAS TOLERATED CEPHALOSPORINS. HE STATED THAT PENICILLIN CAUSED A RASH AROUND HIS BELT LINE. ALSO LISTED IS IODINATED CONTRAST, ORAL AND IV; SIMVASTATIN; AND TOMATO. SOCIAL HISTORY: He is . His is currently with him. He continues to work. No tobacco. CURRENT MEDICATIONS: Include heparin, albuterol, Lipitor, Celexa, Voltaren, Colace, Lovenox, Neurontin, Amaryl, Cozaar, metformin, and Robaxin. Other meds are available and have been reviewed in the chart. FAMILY HISTORY: Also noncontributory. PHYSICAL EXAMINATION: VITAL SIGNS: Temperature currently 102.1, pulse 81, respirations 20, blood pressure 103/52, satting 94% on 6 liters. CONSTITUTIONAL: He is cooperative. He is in no acute distress. HEENT: Pupils are equal and reactive. He is on oxygen. He has normal conjunctivae. Oral cavity, pharynx is clear. NECK: Supple, good range of motion. Without JVD. LUNGS: Clear to auscultation bilaterally. HEART: S1, S2. ABDOMEN: Obese, soft, nontender, nondistended, with positive bowel sounds. EXTREMITIES: Without clubbing, cyanosis. He does have a little left lower extremity weakness which is reported, but he does have normal sensation. SKIN: Warm to touch without signs of rash. NEUROLOGIC: Answers questions appropriately. PSYCHIATRIC: Affect is pleasant. LABORATORY DATA: White count 24.3, hemoglobin 12.6, platelets 260 with 89 segs. Creatinine of 1.1, glucose 185, creatinine kinase 3442. Troponin 4.9. Urinalysis, not consistent with urinary tract infections. RADIOLOGICAL STUDIES: Chest x-ray, interstitial and alveolar opacities, bilateral. Pulmonary perfusion imaging: Some perfusion defects are better seen in oblique and lateral low probability overall. Lower extremity ultrasound, no thrombus. CT scan of the head, no acute intracranial process. IMPRESSION: 1. Fever, questionable infection versus cardiac event, given his increased troponin and creatinine kinase. 2. Leukocytosis, as above. 3. Elevated troponin, CK. 4. Back pain, with history of methicillin-sensitive Staphylococcus aureus infection. 5. Penicillin allergy. He tolerates cephalosporins. 6. Hyponatremia. RECOMMENDATIONS: We will follow up blood cultures and vanc, meropenem. He is to undergo an MRI of his head, lumbar spine as well. He needs to follow up labs. This was discussed with his . I spent 35 minutes of critical care time. Dr. Zimmerman, thank you for allowing me to participate in this patient's care. If you have any questions, please do not hesitate to contact me. JANEE HSIEH MD DR: ANTONIO/terri JOB#: [id number] / [id number]
[2017-07-27] VITALS (21 sets, daily range): BP systolic 101–150; BP diastolic 55–77
[2017-07-27 06:04] LABS: HEMATOCRIT 27.6 % (39.0-53.0); HEMOGLOBIN 9.7 g/dL (13.0-17.5); RED BLOOD COUNT 3.38 x10^6/uL (4.30-5.70); RED CELL DISTRIBUTION WIDTH 13.9 % (11.5-14.5); WHITE BLOOD COUNT 12.2 x10^3/uL (4.0-11.0)
[2017-07-27] MEDS: MEROPENEM 1 GM in IV NORMAL SALINE 100ML 100 ML IV SCH ×3 (06:22→21:36)
[2017-07-27 06:26] LABS: CALCIUM 8.1 mg/dL (8.5-10.1); CREATININE 1.4 mg/dL (0.7-1.3); GFR 50.1; POTASSIUM 3.5 mmol/L (3.5-5.1)
[2017-07-27] MEDS: IPRATRPIUM/ALBUTEROL 0.5/2.5MG 3 ML NEBU. NEB SCH ×4 (07:27→20:31)
[2017-07-27 07:36] LABS: CHOLESTEROL/HDL RATIO 4.4
[2017-07-27] MEDS: HYDROcodone/APAP 7.5/325MG 1 TAB TABLET PO PRN (07:40)
[2017-07-27] MEDS: POTASSIUM CHLORIDE 20 MEQ TABLET.ER. PO SCH (07:41)
[2017-07-27] MEDS: INSULIN ASPART 300 UNITS/3 ML INSULN.PEN SQ SCH ×3 (07:41→16:58)
[2017-07-27] MEDS: FLUTICASONE 50MCG/NASAL SPRAY 16GM BOTTLE. NS SCH (08:22)
[2017-07-27] MEDS: DICLOFENAC SODIUM 25 MG TABLET.DR PO SCH ×2 (08:23→21:34)
[2017-07-27] MEDS: CITALOPRAM 20 MG TABLET. PO SCH ×2 (08:23→21:35)
[2017-07-27] MEDS: OMEGA-3 FATTY ACIDS/FISH OIL 1,000 MG CAPSULE. PO SCH ×2 (08:23→21:34)
[2017-07-27] MEDS: TAMSULOSIN 0.4 MG CAP.ER.24H. PO SCH (08:29)
[2017-07-27] MEDS: GLIMEPIRIDE 2 MG TABLET. PO SCH (08:29)
[2017-07-27] MEDS: LOSARTAN POTASSIUM 50 MG TABLET. PO SCH (08:29)
[2017-07-27] MEDS: DOCUSATE SODIUM 100 MG CAPSULE. PO SCH ×2 (08:29→21:35)
[2017-07-27] MEDS: hydroCHLOROthiazide 25 MG TABLET PO SCH (08:30)
[2017-07-27] MEDS: GABAPENTIN 100 MG CAPSULE. PO SCH ×3 (08:30→21:34)
[2017-07-27] MEDS: MULTIVITAMIN with MINERAL TABLET. PO SCH (08:30)
[2017-07-27] MEDS ORDERED: MORPHINE SULFATE 4 MG/ML DISP.SYRIN. IV PRN (08:30)
[2017-07-27] MEDS: METOPROLOL TART IMMED RELEASE 50 MG TABLET. PO SCH ×2 (08:30→21:35)
[2017-07-27] MEDS: MORPHINE SULFATE 4 MG/ML DISP.SYRIN. IV PRN ×3 (08:35→21:36)
--- NOTE | 2017-07-27 08:43 | PDOC ---
Infectious Disease Note Subjective Subjective c/o back and hip pain rating 7-8/10. Ate couple bites of breakfast, not very hungry Low-grade temp Tmax 100.9 Supplemental O2 ROS ROS GEN: Denies chills, sweats CV: Denies chest pain RESP: Denies shortness of air, cough GI: Denies n/v/d or constipation NEURO: Denies confusion, dizziness Vital Sign Vital Signs Vital Signs Date Time Temp Pulse Resp B/P (MAP) Pulse Ox O2 Delivery O2 Flow Rate FiO2 07/27/17 08:30 98 150/64 07/27/17 08:02 98.5 22 93 Nasal Cannula 10.0 98.5 Physical Exam PHYSICAL EXAM GENERAL: Alert, NAD HEENT: Oral cavity dry NECK: Supple LUNGS: Clear HEART: S1S2, no gallop, no murmur ABD: Soft, NT, obese, BS present EXT: No edema, no cyanosis COMPRESSOR ENGINEER: Alert, oriented x 3 SKIN: No rash PIV: ok Labs Lab Laboratory Tests Test 07/26/17 09:53 07/26/17 11:55 07/26/17 12:21 07/26/17 13:15 Heparin Anti-Xa Act, Unfractionated 0.55 IU/mL (0.30-0.70) Troponin I Quantitative 15.867 ng/mL (0.000-0.055) Glucose (Fingerstick) 172 mg/dL (70-99) O2 Saturation 93 % (92-99) Arterial Blood pH 7.47 (7.35-7.45) Arterial Blood pCO2 at Patient Temp 31 mmHg (35-46) Arterial Blood pO2 at Patient Temp 65 mmHg (65-108) Arterial Blood HCO3 22 mmol/L (21-28) Arterial Blood Base Excess -1 mmol/L (-3-3) FiO2 40 White Blood Count 16.1 x10^3/uL (4.0-11.0) Red Blood Count 3.85 x10^6/uL (4.30-5.70) Hemoglobin 10.7 g/dL (13.0-17.5) Hematocrit 31.8 % (39.0-53.0) Mean Corpuscular Volume 83 fL (79-100) Mean Corpuscular Hemoglobin 28 pg (25-35) Mean Corpuscular Hemoglobin Concent 34 g/dL (31-37) Red Cell Distribution Width 14.1 % (11.5-14.5) Platelet Count 210 x10^3/uL (140-400) Neutrophils (%) (Auto) 86 % (31-73) Lymphocytes (%) (Auto) 6 % (24-48) Monocytes (%) (Auto) 8 % (0-9) Eosinophils (%) (Auto) 0 % (0-3) Basophils (%) (Auto) 0 % (0-3) Neutrophils # (Auto) 13.8 x10^3uL (1.8-7.7) Lymphocytes # (Auto) 0.9 x10^3/uL (1.0-4.8) Monocytes # (Auto) 1.4 x10^3/uL (0.0-1.1) Eosinophils # (Auto) 0.0 x10^3/uL (0.0-0.7) Basophils # (Auto) 0.0 x10^3/uL (0.0-0.2) Segmented Neutrophils % 88 % (35-66) Band Neutrophils % 3 % (0-9) Lymphocytes % 3 % (24-48) Atypical Lymphocytes % (Manual) 2 % (0-0) Monocytes % 4 % (0-10) Platelet Estimate Adequate (ADEQUATE) Sodium Level 128 mmol/L (136-145) Potassium Level 3.2 mmol/L (3.5-5.1) Chloride Level 94 mmol/L (98-107) Carbon Dioxide Level 24 mmol/L (21-32) Anion Gap 10 (6-14) Blood Urea Nitrogen 19 mg/dL (8-26) Creatinine 1.1 mg/dL (0.7-1.3) Estimated GFR (Cockcroft-Gault) 66.2 BUN/Creatinine Ratio 17 (6-20) Glucose Level 166 mg/dL (70-99) Calcium Level 8.1 mg/dL (8.5-10.1) Total Bilirubin 0.5 mg/dL (0.2-1.0) Aspartate Amino Transf (AST/SGOT) 113 U/L (15-37) Alanine Aminotransferase (ALT/SGPT) 46 U/L (16-63) Alkaline Phosphatase 71 U/L (46-116) Total Protein 6.8 g/dL (6.4-8.2) Albumin 2.7 g/dL (3.4-5.0) Albumin/Globulin Ratio 0.7 (1.0-1.7) Test 07/26/17 17:00 07/26/17 18:30 07/27/17 05:40 07/27/17 07:39 Glucose (Fingerstick) 136 mg/dL (70-99) 135 mg/dL (70-99) Heparin Anti-Xa Act, Unfractionated 0.13 IU/mL (0.30-0.70) White Blood Count 12.2 x10^3/uL (4.0-11.0) Red Blood Count 3.38 x10^6/uL (4.30-5.70) Hemoglobin 9.7 g/dL (13.0-17.5) Hematocrit 27.6 % (39.0-53.0) Mean Corpuscular Volume 82 fL (79-100) Mean Corpuscular Hemoglobin 29 pg (25-35) Mean Corpuscular Hemoglobin Concent 35 g/dL (31-37) Red Cell Distribution Width 13.9 % (11.5-14.5) Platelet Count 176 x10^3/uL (140-400) Sodium Level 129 mmol/L (136-145) Potassium Level 3.5 mmol/L (3.5-5.1) Chloride Level 94 mmol/L (98-107) Carbon Dioxide Level 24 mmol/L (21-32) Anion Gap 11 (6-14) Blood Urea Nitrogen 25 mg/dL (8-26) Creatinine 1.4 mg/dL (0.7-1.3) Estimated GFR (Cockcroft-Gault) 50.1 Glucose Level 130 mg/dL (70-99) Calcium Level 8.1 mg/dL (8.5-10.1) Triglycerides Level 107 mg/dL (0-150) Cholesterol Level 96 mg/dL (0-200) LDL Cholesterol, Calculated 53 mg/dL (0-100) VLDL Cholesterol, Calculated 21 mg/dL (0-40) Non-HDL Cholesterol Calculated 74 mg/dL (0-129) HDL Cholesterol 22 mg/dL (40-60) Cholesterol/HDL Ratio 4.4 MRI brain Impression: 1. Moderate diffuse age expected atrophy. 2. Probable retinal detachment in the right globe likely old. 3. No acute intracranial findings. Micro BLOOD CULTURE Final GRAM POSITIVE COCCI IN CLUSTERS, SUGGESTIVE OF STAPH, IN 1 OF 2 BOTTLES, ONE SET DRAWN. CALLED TO EDER CAAL RN IN ICU AT 11:20 ON 07/26/17 DW MT SENT TO [facility] FOR FURTHER WORKUP. AMMENDED REPORT: 07/26/17 12:10, NOW IN BOTH BOTTLES OF THIS SET. Objective Assessment GPC bacteremia, POA, 07/25 Staph aureus Fever ? infection vs cardiac event Leukocytosis, trending down Elevated Troponin/CK- NSTEMI Back pain and h/o MSSA infection PCN allergy - tolerated Cefazolin Hyponatremia Plan Plan of Care Await staph aureus ID Continue Vanc and Meropenem MRI Lumbar spine results pending Monitor renal function, WBC and temp D/w Attending Co-Sign Attending Co-Sign The patient was seen and interviewed as well as examined at the bedside. The chart was reviewed. The case was discussed. Agree with the plan of care. ELIAN VILLALOBOS APRN Jul 27, 2017 08:43 JANEE HSIEH MD Jul 27, 2017 12:39
[2017-07-27] MEDS ORDERED: MORPHINE SULFATE 10 MG/ML VIAL. IV PRN (08:45)
[2017-07-27] MEDS: VANCOMYCIN PER PHARMACY MC PRN (08:55)
[2017-07-27] MEDS: ANTI-COAG MONITOR BY PHARMACY. MC PRN (10:04)
[2017-07-27] MEDS ORDERED: GADOBUTROL 10 MMOL/10 ML VIAL IV ONE (10:15)
--- NOTE | 2017-07-27 10:54 | PDOC ---
PROGRESS NOTES Chief Complaint Chief Complaint Assessment/Plan 1. BAck pain, recent back sx/Sepsis, complicated back sx bec of sepsis, FEVERS, SIRS POA, likely infectious no organ dysfcn yet 1. TRansient amnesia, Oddities in behavior, forgetfullness - could be beginning dementia? 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 CT head neg, Check MRI for any acute pathology, Add esr. get neuro. 2. HTN, DM2, dyslipidemia - depression NOS - all chronic stable 3. Polypharmacy - on 22 home meds 4. Geriatric, fall risk 5. FEVERS, LEUKOCYTOSIS, SIRS < POA 6. Hip pain, shoulder pain, back pain 7. Recent multiple non injury falls 8. NSTEMI 9. HYpoxic respi failure with neg dopplers and low prob VQ History of Present Illness History of Present Illness Back pain is the main active issue now CANT even sit up AGree with MRI back - just had done WIll consult dr Morfin today given his recent sx with him, and would prefer that too On IV abx per ID Discussed withe neuro yesterday - transient amnesia/etc might be related to dec perfusion - TROPS 15 peak, no CP Cards involved C plans "on hold" given possibel back infection PLAN: Would recheck troponin Pt does deny CP Await MRI COnt heparin gtt Further recs pending above tests Dw COnsult dr. 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 Vitals Vitals Vital Signs Date Time Temp Pulse Resp B/P (MAP) Pulse Ox O2 Delivery O2 Flow Rate FiO2 07/27/17 09:25 93 Nasal Cannula 10.0 07/27/17 08:30 98 150/64 07/27/17 08:02 98.5 22 98.5 Physical Exam General: Other Heart: Regular rate, Normal S1, Normal S2 Abdomen: Normal bowel sounds, Soft Extremities: No edema Skin: No rashes, No breakdown, No significant lesion Labs LABS Laboratory Tests Test 07/26/17 11:55 07/26/17 12:21 07/26/17 13:15 07/26/17 17:00 Glucose (Fingerstick) 172 mg/dL (70-99) 136 mg/dL (70-99) O2 Saturation 93 % (92-99) Arterial Blood pH 7.47 (7.35-7.45) Arterial Blood pCO2 at Patient Temp 31 mmHg (35-46) Arterial Blood pO2 at Patient Temp 65 mmHg (65-108) Arterial Blood HCO3 22 mmol/L (21-28) Arterial Blood Base Excess -1 mmol/L (-3-3) FiO2 40 White Blood Count 16.1 x10^3/uL (4.0-11.0) Red Blood Count 3.85 x10^6/uL (4.30-5.70) Hemoglobin 10.7 g/dL (13.0-17.5) Hematocrit 31.8 % (39.0-53.0) Mean Corpuscular Volume 83 fL (79-100) Mean Corpuscular Hemoglobin 28 pg (25-35) Mean Corpuscular Hemoglobin Concent 34 g/dL (31-37) Red Cell Distribution Width 14.1 % (11.5-14.5) Platelet Count 210 x10^3/uL (140-400) Neutrophils (%) (Auto) 86 % (31-73) Lymphocytes (%) (Auto) 6 % (24-48) Monocytes (%) (Auto) 8 % (0-9) Eosinophils (%) (Auto) 0 % (0-3) Basophils (%) (Auto) 0 % (0-3) Neutrophils # (Auto) 13.8 x10^3uL (1.8-7.7) Lymphocytes # (Auto) 0.9 x10^3/uL (1.0-4.8) Monocytes # (Auto) 1.4 x10^3/uL (0.0-1.1) Eosinophils # (Auto) 0.0 x10^3/uL (0.0-0.7) Basophils # (Auto) 0.0 x10^3/uL (0.0-0.2) Segmented Neutrophils % 88 % (35-66) Band Neutrophils % 3 % (0-9) Lymphocytes % 3 % (24-48) Atypical Lymphocytes % (Manual) 2 % (0-0) Monocytes % 4 % (0-10) Platelet Estimate Adequate (ADEQUATE) Sodium Level 128 mmol/L (136-145) Potassium Level 3.2 mmol/L (3.5-5.1) Chloride Level 94 mmol/L (98-107) Carbon Dioxide Level 24 mmol/L (21-32) Anion Gap 10 (6-14) Blood Urea Nitrogen 19 mg/dL (8-26) Creatinine 1.1 mg/dL (0.7-1.3) Estimated GFR (Cockcroft-Gault) 66.2 BUN/Creatinine Ratio 17 (6-20) Glucose Level 166 mg/dL (70-99) Calcium Level 8.1 mg/dL (8.5-10.1) Total Bilirubin 0.5 mg/dL (0.2-1.0) Aspartate Amino Transf (AST/SGOT) 113 U/L (15-37) Alanine Aminotransferase (ALT/SGPT) 46 U/L (16-63) Alkaline Phosphatase 71 U/L (46-116) Total Protein 6.8 g/dL (6.4-8.2) Albumin 2.7 g/dL (3.4-5.0) Albumin/Globulin Ratio 0.7 (1.0-1.7) Test 07/26/17 18:30 07/27/17 05:40 07/27/17 07:39 Heparin Anti-Xa Act, Unfractionated 0.13 IU/mL (0.30-0.70) White Blood Count 12.2 x10^3/uL (4.0-11.0) Red Blood Count 3.38 x10^6/uL (4.30-5.70) Hemoglobin 9.7 g/dL (13.0-17.5) Hematocrit 27.6 % (39.0-53.0) Mean Corpuscular Volume 82 fL (79-100) Mean Corpuscular Hemoglobin 29 pg (25-35) Mean Corpuscular Hemoglobin Concent 35 g/dL (31-37) Red Cell Distribution Width 13.9 % (11.5-14.5) Platelet Count 176 x10^3/uL (140-400) Sodium Level 129 mmol/L (136-145) Potassium Level 3.5 mmol/L (3.5-5.1) Chloride Level 94 mmol/L (98-107) Carbon Dioxide Level 24 mmol/L (21-32) Anion Gap 11 (6-14) Blood Urea Nitrogen 25 mg/dL (8-26) Creatinine 1.4 mg/dL (0.7-1.3) Estimated GFR (Cockcroft-Gault) 50.1 Glucose Level 130 mg/dL (70-99) Calcium Level 8.1 mg/dL (8.5-10.1) Triglycerides Level 107 mg/dL (0-150) Cholesterol Level 96 mg/dL (0-200) LDL Cholesterol, Calculated 53 mg/dL (0-100) VLDL Cholesterol, Calculated 21 mg/dL (0-40) Non-HDL Cholesterol Calculated 74 mg/dL (0-129) HDL Cholesterol 22 mg/dL (40-60) Cholesterol/HDL Ratio 4.4 Glucose (Fingerstick) 135 mg/dL (70-99) Review of Systems Review of Systems back pain, hip pain Comment Review of Relevant I have reviewed the following items kyler (where applicable) has been applied. Labs Laboratory Tests Test 07/25/17 18:00 07/25/17 18:59 07/26/17 01:51 07/26/17 02:04 White Blood Count 18.9 x10^3/uL (4.0-11.0) Red Blood Count 4.02 x10^6/uL (4.30-5.70) Hemoglobin 11.2 g/dL (13.0-17.5) Hematocrit 32.7 % (39.0-53.0) Mean Corpuscular Volume 81 fL (79-100) Mean Corpuscular Hemoglobin 28 pg (25-35) Mean Corpuscular Hemoglobin Concent 34 g/dL (31-37) Red Cell Distribution Width 14.0 % (11.5-14.5) Platelet Count 247 x10^3/uL (140-400) Neutrophils (%) (Auto) 91 % (31-73) Lymphocytes (%) (Auto) 2 % (24-48) Monocytes (%) (Auto) 7 % (0-9) Eosinophils (%) (Auto) 0 % (0-3) Basophils (%) (Auto) 0 % (0-3) Neutrophils # (Auto) 17.1 x10^3uL (1.8-7.7) Lymphocytes # (Auto) 0.4 x10^3/uL (1.0-4.8) Monocytes # (Auto) 1.4 x10^3/uL (0.0-1.1) Eosinophils # (Auto) 0.0 x10^3/uL (0.0-0.7) Basophils # (Auto) 0.1 x10^3/uL (0.0-0.2) Segmented Neutrophils % 92 % (35-66) Lymphocytes % 2 % (24-48) Monocytes % 6 % (0-10) Platelet Estimate Increased (ADEQUATE) Polychromasia Slight Target Cells Occ Schistocytes Occ Prothrombin Time 14.2 SEC (11.7-14.0) Prothromb Time International Ratio 1.2 (0.8-1.1) Sodium Level 128 mmol/L (136-145) Potassium Level 3.4 mmol/L (3.5-5.1) Chloride Level 90 mmol/L (98-107) Carbon Dioxide Level 25 mmol/L (21-32) Anion Gap 13 (6-14) Blood Urea Nitrogen 19 mg/dL (8-26) Creatinine 1.5 mg/dL (0.7-1.3) Estimated GFR (Cockcroft-Gault) 46.3 Glucose Level 105 mg/dL (70-99) Lactic Acid Level 3.1 mmol/L (0.4-2.0) Calcium Level 9.2 mg/dL (8.5-10.1) Magnesium Level 1.8 mg/dL (1.8-2.4) Total Bilirubin 0.6 mg/dL (0.2-1.0) Direct Bilirubin 0.2 mg/dL (0.0-0.2) Aspartate Amino Transf (AST/SGOT) 25 U/L (15-37) Alanine Aminotransferase (ALT/SGPT) 34 U/L (16-63) Alkaline Phosphatase 77 U/L (46-116) Creatine Kinase 565 U/L (39-308) Creatine Kinase MB (Mass) 2.4 ng/mL (0.0-3.6) Creatine Kinase MB Relative Index 0.4 % (0-4) Troponin I Quantitative 0.043 ng/mL (0.000-0.055) [id number]-Type Natriuretic Peptide 1492 pg/mL (0-124) Total Protein 7.6 g/dL (6.4-8.2) Albumin 3.5 g/dL (3.4-5.0) Lipase 175 U/L (73-393) Thyroid Stimulating Hormone (TSH) 1.874 uIU/mL (0.358-3.74) Ethyl Alcohol Level < 10 mg/dL (0-10) Urine Color Yellow Urine Clarity Clear Urine pH 6.0 Urine Specific [place] 1.015 Urine Protein 100 mg/dL (NEG-TRACE) Urine Glucose (UA) Negative mg/dL (NEG) Urine Ketones (Stick) Negative mg/dL (NEG) Urine Blood Large (NEG) Urine Nitrite Negative (NEG) Urine Bilirubin Negative (NEG) Urine Urobilinogen Dipstick 0.2 mg/dL (0.2 mg/dL) Urine Leukocyte Esterase Negative (NEG) Urine RBC 11-20 /HPF (0-2) Urine WBC Occ /HPF (0-4) Urine Squamous Epithelial Cells Occ /LPF Urine Bacteria 0 /HPF (0-FEW) Urine Opiates Screen Neg (NEG) Urine Methadone Screen Neg (NEG) Urine Barbiturates Neg (NEG) Urine Phencyclidine Screen Neg (NEG) Urine Amphetamine/Methamphetamine Neg (NEG) Urine Benzodiazepines Screen Neg (NEG) Urine Cocaine Screen Neg (NEG) Urine Cannabinoids Screen Neg (NEG) Urine Ethyl Alcohol Neg (NEG) Glucose (Fingerstick) 182 mg/dL (70-99) O2 Saturation 82 % (92-99) Arterial Blood pH 7.40 (7.35-7.45) Arterial Blood pH (Temp corrected) 7.39 Arterial Blood pCO2 at Patient Temp 39 mmHg (35-46) Arterial Blood pCO2 (Temp correct) 41 mmHg Arterial Blood pO2 at Patient Temp 46 mmHg (65-108) Arterial Blood pO2 (Temp corrected) 49 mmHg Arterial Blood HCO3 24 mmol/L (21-28) Arterial Blood Base Excess -1 mmol/L (-3-3) FiO2 100.0 Test 07/26/17 02:10 07/26/17 02:15 07/26/17 02:30 07/26/17 03:30 White Blood Count 24.3 x10^3/uL (4.0-11.0) Red Blood Count 4.61 x10^6/uL (4.30-5.70) Hemoglobin 12.6 g/dL (13.0-17.5) Hematocrit 38.1 % (39.0-53.0) Mean Corpuscular Volume 83 fL (79-100) Mean Corpuscular Hemoglobin 27 pg (25-35) Mean Corpuscular Hemoglobin Concent 33 g/dL (31-37) Red Cell Distribution Width 14.1 % (11.5-14.5) Platelet Count 260 x10^3/uL (140-400) Neutrophils (%) (Auto) 89 % (31-73) Lymphocytes (%) (Auto) 3 % (24-48) Monocytes (%) (Auto) 8 % (0-9) Eosinophils (%) (Auto) 0 % (0-3) Basophils (%) (Auto) 0 % (0-3) Neutrophils # (Auto) 21.7 x10^3uL (1.8-7.7) Lymphocytes # (Auto) 0.6 x10^3/uL (1.0-4.8) Monocytes # (Auto) 1.9 x10^3/uL (0.0-1.1) Eosinophils # (Auto) 0.0 x10^3/uL (0.0-0.7) Basophils # (Auto) 0.0 x10^3/uL (0.0-0.2) D-Dimer (Natalya) 2.06 ug/mlFEU (0.00-0.50) Sodium Level 127 mmol/L (136-145) Potassium Level 3.3 mmol/L (3.5-5.1) Chloride Level 90 mmol/L (98-107) Carbon Dioxide Level 24 mmol/L (21-32) Anion Gap 13 (6-14) Blood Urea Nitrogen 18 mg/dL (8-26) Creatinine 1.1 mg/dL (0.7-1.3) Estimated GFR (Cockcroft-Gault) 66.2 Glucose Level 185 mg/dL (70-99) Calcium Level 8.7 mg/dL (8.5-10.1) Troponin I Quantitative 4.900 ng/mL (0.000-0.055) Creatine Kinase 3442 U/L (39-308) Creatine Kinase MB (Mass) 17.8 ng/mL (0.0-3.6) Creatine Kinase MB Relative Index 0.5 % (0-4) Nasal Screen MRSA (PCR) Negative (Negative) Lactic Acid Level 1.0 mmol/L (0.4-2.0) Test 07/26/17 06:21 07/26/17 08:21 07/26/17 09:53 07/26/17 11:55 O2 Saturation 99 % (92-99) Arterial Blood pH 7.50 (7.35-7.45) Arterial Blood pCO2 at Patient Temp 29 mmHg (35-46) Arterial Blood pO2 at Patient Temp 138 mmHg (65-108) Arterial Blood HCO3 22 mmol/L (21-28) Arterial Blood Base Excess 0 mmol/L (-3-3) Glucose (Fingerstick) 168 mg/dL (70-99) 172 mg/dL (70-99) Heparin Anti-Xa Act, Unfractionated 0.55 IU/mL (0.30-0.70) Troponin I Quantitative 15.867 ng/mL (0.000-0.055) Test 07/26/17 12:21 07/26/17 13:15 07/26/17 17:00 07/26/17 18:30 O2 Saturation 93 % (92-99) Arterial Blood pH 7.47 (7.35-7.45) Arterial Blood pCO2 at Patient Temp 31 mmHg (35-46) Arterial Blood pO2 at Patient Temp 65 mmHg (65-108) Arterial Blood HCO3 22 mmol/L (21-28) Arterial Blood Base Excess -1 mmol/L (-3-3) FiO2 40 White Blood Count 16.1 x10^3/uL (4.0-11.0) Red Blood Count 3.85 x10^6/uL (4.30-5.70) Hemoglobin 10.7 g/dL (13.0-17.5) Hematocrit 31.8 % (39.0-53.0) Mean Corpuscular Volume 83 fL (79-100) Mean Corpuscular Hemoglobin 28 pg (25-35) Mean Corpuscular Hemoglobin Concent 34 g/dL (31-37) Red Cell Distribution Width 14.1 % (11.5-14.5) Platelet Count 210 x10^3/uL (140-400) Neutrophils (%) (Auto) 86 % (31-73) Lymphocytes (%) (Auto) 6 % (24-48) Monocytes (%) (Auto) 8 % (0-9) Eosinophils (%) (Auto) 0 % (0-3) Basophils (%) (Auto) 0 % (0-3) Neutrophils # (Auto) 13.8 x10^3uL (1.8-7.7) Lymphocytes # (Auto) 0.9 x10^3/uL (1.0-4.8) Monocytes # (Auto) 1.4 x10^3/uL (0.0-1.1) Eosinophils # (Auto) 0.0 x10^3/uL (0.0-0.7) Basophils # (Auto) 0.0 x10^3/uL (0.0-0.2) Segmented Neutrophils % 88 % (35-66) Band Neutrophils % 3 % (0-9) Lymphocytes % 3 % (24-48) Atypical Lymphocytes % (Manual) 2 % (0-0) Monocytes % 4 % (0-10) Platelet Estimate Adequate (ADEQUATE) Sodium Level 128 mmol/L (136-145) Potassium Level 3.2 mmol/L (3.5-5.1) Chloride Level 94 mmol/L (98-107) Carbon Dioxide Level 24 mmol/L (21-32) Anion Gap 10 (6-14) Blood Urea Nitrogen 19 mg/dL (8-26) Creatinine 1.1 mg/dL (0.7-1.3) Estimated GFR (Cockcroft-Gault) 66.2 BUN/Creatinine Ratio 17 (6-20) Glucose Level 166 mg/dL (70-99) Calcium Level 8.1 mg/dL (8.5-10.1) Total Bilirubin 0.5 mg/dL (0.2-1.0) Aspartate Amino Transf (AST/SGOT) 113 U/L (15-37) Alanine Aminotransferase (ALT/SGPT) 46 U/L (16-63) Alkaline Phosphatase 71 U/L (46-116) Total Protein 6.8 g/dL (6.4-8.2) Albumin 2.7 g/dL (3.4-5.0) Albumin/Globulin Ratio 0.7 (1.0-1.7) Glucose (Fingerstick) 136 mg/dL (70-99) Heparin Anti-Xa Act, Unfractionated 0.13 IU/mL (0.30-0.70) Test 07/27/17 05:40 07/27/17 07:39 White Blood Count 12.2 x10^3/uL (4.0-11.0) Red Blood Count 3.38 x10^6/uL (4.30-5.70) Hemoglobin 9.7 g/dL (13.0-17.5) Hematocrit 27.6 % (39.0-53.0) Mean Corpuscular Volume 82 fL (79-100) Mean Corpuscular Hemoglobin 29 pg (25-35) Mean Corpuscular Hemoglobin Concent 35 g/dL (31-37) Red Cell Distribution Width 13.9 % (11.5-14.5) Platelet Count 176 x10^3/uL (140-400) Sodium Level 129 mmol/L (136-145) Potassium Level 3.5 mmol/L (3.5-5.1) Chloride Level 94 mmol/L (98-107) Carbon Dioxide Level 24 mmol/L (21-32) Anion Gap 11 (6-14) Blood Urea Nitrogen 25 mg/dL (8-26) Creatinine 1.4 mg/dL (0.7-1.3) Estimated GFR (Cockcroft-Gault) 50.1 Glucose Level 130 mg/dL (70-99) Calcium Level 8.1 mg/dL (8.5-10.1) Triglycerides Level 107 mg/dL (0-150) Cholesterol Level 96 mg/dL (0-200) LDL Cholesterol, Calculated 53 mg/dL (0-100) VLDL Cholesterol, Calculated 21 mg/dL (0-40) Non-HDL Cholesterol Calculated 74 mg/dL (0-129) HDL Cholesterol 22 mg/dL (40-60) Cholesterol/HDL Ratio 4.4 Glucose (Fingerstick) 135 mg/dL (70-99) Laboratory Tests Test 07/26/17 11:55 07/26/17 12:21 07/26/17 13:15 07/26/17 17:00 Glucose (Fingerstick) 172 mg/dL (70-99) 136 mg/dL (70-99) O2 Saturation 93 % (92-99) Arterial Blood pH 7.47 (7.35-7.45) Arterial Blood pCO2 at Patient Temp 31 mmHg (35-46) Arterial Blood pO2 at Patient Temp 65 mmHg (65-108) Arterial Blood HCO3 22 mmol/L (21-28) Arterial Blood Base Excess -1 mmol/L (-3-3) FiO2 40 White Blood Count 16.1 x10^3/uL (4.0-11.0) Red Blood Count 3.85 x10^6/uL (4.30-5.70) Hemoglobin 10.7 g/dL (13.0-17.5) Hematocrit 31.8 % (39.0-53.0) Mean Corpuscular Volume 83 fL (79-100) Mean Corpuscular Hemoglobin 28 pg (25-35) Mean Corpuscular Hemoglobin Concent 34 g/dL (31-37) Red Cell Distribution Width 14.1 % (11.5-14.5) Platelet Count 210 x10^3/uL (140-400) Neutrophils (%) (Auto) 86 % (31-73) Lymphocytes (%) (Auto) 6 % (24-48) Monocytes (%) (Auto) 8 % (0-9) Eosinophils (%) (Auto) 0 % (0-3) Basophils (%) (Auto) 0 % (0-3) Neutrophils # (Auto) 13.8 x10^3uL (1.8-7.7) Lymphocytes # (Auto) 0.9 x10^3/uL (1.0-4.8) Monocytes # (Auto) 1.4 x10^3/uL (0.0-1.1) Eosinophils # (Auto) 0.0 x10^3/uL (0.0-0.7) Basophils # (Auto) 0.0 x10^3/uL (0.0-0.2) Segmented Neutrophils % 88 % (35-66) Band Neutrophils % 3 % (0-9) Lymphocytes % 3 % (24-48) Atypical Lymphocytes % (Manual) 2 % (0-0) Monocytes % 4 % (0-10) Platelet Estimate Adequate (ADEQUATE) Sodium Level 128 mmol/L (136-145) Potassium Level 3.2 mmol/L (3.5-5.1) Chloride Level 94 mmol/L (98-107) Carbon Dioxide Level 24 mmol/L (21-32) Anion Gap 10 (6-14) Blood Urea Nitrogen 19 mg/dL (8-26) Creatinine 1.1 mg/dL (0.7-1.3) Estimated GFR (Cockcroft-Gault) 66.2 BUN/Creatinine Ratio 17 (6-20) Glucose Level 166 mg/dL (70-99) Calcium Level 8.1 mg/dL (8.5-10.1) Total Bilirubin 0.5 mg/dL (0.2-1.0) Aspartate Amino Transf (AST/SGOT) 113 U/L (15-37) Alanine Aminotransferase (ALT/SGPT) 46 U/L (16-63) Alkaline Phosphatase 71 U/L (46-116) Total Protein 6.8 g/dL (6.4-8.2) Albumin 2.7 g/dL (3.4-5.0) Albumin/Globulin Ratio 0.7 (1.0-1.7) Test 07/26/17 18:30 07/27/17 05:40 07/27/17 07:39 Heparin Anti-Xa Act, Unfractionated 0.13 IU/mL (0.30-0.70) White Blood Count 12.2 x10^3/uL (4.0-11.0) Red Blood Count 3.38 x10^6/uL (4.30-5.70) Hemoglobin 9.7 g/dL (13.0-17.5) Hematocrit 27.6 % (39.0-53.0) Mean Corpuscular Volume 82 fL (79-100) Mean Corpuscular Hemoglobin 29 pg (25-35) Mean Corpuscular Hemoglobin Concent 35 g/dL (31-37) Red Cell Distribution Width 13.9 % (11.5-14.5) Platelet Count 176 x10^3/uL (140-400) Sodium Level 129 mmol/L (136-145) Potassium Level 3.5 mmol/L (3.5-5.1) Chloride Level 94 mmol/L (98-107) Carbon Dioxide Level 24 mmol/L (21-32) Anion Gap 11 (6-14) Blood Urea Nitrogen 25 mg/dL (8-26) Creatinine 1.4 mg/dL (0.7-1.3) Estimated GFR (Cockcroft-Gault) 50.1 Glucose Level 130 mg/dL (70-99) Calcium Level 8.1 mg/dL (8.5-10.1) Triglycerides Level 107 mg/dL (0-150) Cholesterol Level 96 mg/dL (0-200) LDL Cholesterol, Calculated 53 mg/dL (0-100) VLDL Cholesterol, Calculated 21 mg/dL (0-40) Non-HDL Cholesterol Calculated 74 mg/dL (0-129) HDL Cholesterol 22 mg/dL (40-60) Cholesterol/HDL Ratio 4.4 Glucose (Fingerstick) 135 mg/dL (70-99) Microbiology 07/25/17 Blood Culture - Preliminary, Resulted 07/25/17 Blood Culture Result 1 (LISET) - Preliminary, Resulted Medications Current Medications Citalopram Hydrobromide (CeleXA) 20 mg BID PO Last administered on 07/27/17 08 :23; Start 07/25/17 at 21:00 Docusate Sodium (Colace) 100 mg BID PO Last administered on 07/27/17 08:29; Start 07/25/17 at 21:00 Gabapentin (Neurontin) 100 mg TID PO Last administered on 07/27/17 08:30; Start 07/25/17 at 21:00 Hydrochlorothiazide (Hydrodiuril) 25 mg DAILY PO Last administered on 08:30; Start 07/26/17 at 09:00 Acetaminophen/ Hydrocodone Bitart (Lortab 7.5/325) 1 tab PRN Q6HRS PRN PO PAIN Last administered on 07/27/17 07:40; Start 07/25/17 at 19:45 Metformin HCl (Glucophage) 1,000 mg DAILY08 PO Last administered on 07/27/17 07:41; Start 07/26/17 at 08:00 Metformin HCl (Glucophage) 500 mg [id number] PO Last administered on 16:59; Start 07/26/17 at 17:00 Methocarbamol (Robaxin) 750 mg TID PO Last administered on 07/26/17 08:38; Start 07/25/17 at 21:00; Stop 07/26/17 at 18:44; Status DC Potassium Chloride (Klor-Con) 10 meq DAILYWBKFT PO Last administered on 08:33; Start 07/26/17 at 08:00; Stop 07/26/17 at 08:55; Status DC Tamsulosin HCl (Flomax) 0.4 mg DAILY PO Last administered on 07/27/17 08:29; Start 07/26/17 at 09:00 Diclofenac Sodium (Voltaren) 75 mg BID PO Last administered on 07/27/17 08:23 ; Start 07/25/17 at 21:00 Fish Oil (Fish Oil) 1,000 mg BID PO Last administered on 07/27/17 08:23; Start 07/25/17 at 21:00 Fluticasone Propionate (Flonase) 2 spray DAILY NS Last administered on 08:22; Start 07/26/17 at 09:00 Glimepiride (Amaryl) 0.5 mg DAILY PO Last administered on 07/27/17 08:29; Start 07/26/17 at 09:00 Non-Formulary Medication 1 each BID PO ; Start 07/25/17 at 21:00; Status UNV Losartan Potassium (Cozaar) 100 mg DAILY PO Last administered on 07/27/17 08: 29; Start 07/26/17 at 09:00 Atorvastatin Calcium (Lipitor) 5 mg QHS PO Last administered on 07/26/17 20:45 ; Start 07/25/17 at 21:00 Metoprolol Tartrate (Lopressor) 50 mg BID PO Last administered on 07/27/17 08: 30; Start 07/25/17 at 21:00 Multivitamins (Thera M Plus) 1 tab DAILY PO Last administered on 07/27/17 08: 30; Start 07/26/17 at 09:00 Nifedipine (Procardia Xl) 90 mg DAILY PO Last administered on 07/27/17 08:30; Start 07/26/17 at 09:00 Sodium Chloride 1,000 ml @ 1,000 mls/hr 1X ONCE IV Last administered on 21:56; Start 07/25/17 at 19:45; Stop 07/25/17 at 20:44; Status DC Potassium Chloride (Klor-Con) 40 meq 1X ONCE PO Last administered on 21:41; Start 07/25/17 at 19:45; Stop 07/25/17 at 19:48; Status DC Sodium Chloride 1,000 ml @ 100 mls/hr 1X ONCE IV Last administered on 21:53; Start 07/25/17 at 19:45; Stop 07/26/17 at 05:44; Status DC Insulin Aspart (NovoLOG) 0-7 UNITS TIDWMEALS SQ ; Start 07/26/17 at 08:00 Dextrose (Dextrose 50%-Water Syringe) 12.5 gm PRN Q15MIN PRN IV SEE COMMENTS; Start 07/25/17 at 20:00 Info (Do NOT chart on this placeholder) 0.5 each 1X ONCE MC ; Start 07/26/17 at 09:00; Stop 07/26/17 at 09:01; Status UNV Influenza Virus Vaccine Quadrival (Fluarix Quad [id number] Syringe) 0.5 ml ONCE ONCE VAX IM ; Start 07/26/17 at 09:00; Stop 07/26/17 at 09:01; Status DC Albuterol/ Ipratropium (Duoneb) 3 ml RTQID NEB Last administered on 07/27/17 07:27; Start 07/26/17 at 08:00 Albuterol Sulfate (Ventolin Neb Soln) 2.5 mg PRN Q2HRS PRN NEB SHORTNESS OF BREATH Last administered on 07/26/17 02:00; Start 07/26/17 at 01:30 Enoxaparin Sodium (Lovenox 100mg Syringe) 100 mg 1X ONCE SQ Last administered on 07/26/17 02:08; Start 07/26/17 at 02:00; Stop 07/26/17 at 02:04; Status DC Heparin Sodium/ Dextrose 500 ml @ 0 mls/hr CONT PRN IV SEE I/O RECORD Last administered on 07/26/17 03:42; Start 07/26/17 at 03:30 Heparin Sodium (Porcine) (Heparin Sodium) 2,450 unit PRN Q6HRS PRN IV FOR UFH LEVEL LESS THAN 0.2; Start 07/26/17 at 03:30 Info (Anti-Coagulation Monitoring By Pharmacy) 1 each PRN DAILY PRN MC SEE COMMENTS Last administered on 07/27/17 10:04; Start 07/26/17 at 03:30 Vancomycin HCl (Vanco Per Pharmacy) 1 each PRN DAILY PRN MC SEE COMMENTS Last administered on 07/27/17 08:55; Start 07/26/17 at 08:15 Meropenem 1 gm/ Sodium Chloride 100 ml @ 200 mls/hr Q8HRS IV Last administered on 07/27/17 06:22; Start 07/26/17 at 08:30 Vancomycin HCl 2 gm/Sodium Chloride 500 ml @ 250 mls/hr 1X ONCE IV Last administered on 07/26/17 09:27; Start 07/26/17 at 08:30; Stop 07/26/17 at 10:29 ; Status DC Potassium Chloride (Klor-Con) 40 meq [id number] PO Last administered on 07:41; Start 07/26/17 at 09:30 Vancomycin HCl 1.25 gm/Sodium Chloride 250 ml @ 167 mls/hr Q12H IV Last administered on 07/26/17 22:10; Start 07/26/17 at 22:00 Vancomycin HCl 1 each 1X ONCE MC ; Start 07/27/17 at 21:30; Stop 07/27/17 at 21 :31 Furosemide (Lasix) 40 mg 1X ONCE IVP Last administered on 07/26/17 11:47; Start 07/26/17 at 11:30; Stop 07/26/17 at 11:31; Status DC Gadobutrol (Gadavist) 10 mmol 1X ONCE IV Last administered on 07/26/17 16:19 ; Start 07/26/17 at 16:15; Stop 07/26/17 at 16:16; Status DC Morphine Sulfate 3 mg PRN Q3HRS PRN IV PAIN Last administered on 07/27/17 08: 35; Start 07/27/17 at 08:30 Morphine Sulfate 4 mg PRN Q3HRS PRN IV PAIN; Start 07/27/17 at 08:30 Morphine Sulfate 5 mg PRN Q3HRS PRN IV PAIN; Start 07/27/17 at 08:45 Gadobutrol (Gadavist) 9 mmol 1X ONCE IV Last administered on 07/27/17 10:37; Start 07/27/17 at 10:15; Stop 07/27/17 at 10:16; Status DC Active Scripts Active Colace (Docusate Sodium) 100 Mg Capsule 100 Mg PO BID 60 Days Methocarbamol 750 Mg Tablet 750 Mg PO TID 60 Days Hydrocodone-Apap 7.5-325 (Hydrocodone Bit/Acetaminophen) 1 Each Tablet 1 Tab PO PRN Q6HRS PRN 60 Days Reported Tamsulosin Hcl 0.4 Mg Cap.er.24h 0.4 Mg PO DAILY Metformin Hcl 500 Mg Tablet 500 Mg PO DAILYBFRSUP Gabapentin 100 Mg Capsule 100 Mg PO TID Lovastatin 20 Mg Tablet 1 Tab PO DAILY Geybvofkud-Cpuphtscjzr-Als Tab (Gluc/Jonah-Msm#2/C/D3/Vidal/Born) 1 Each Tablet 1 Each PO BID Glimepiride 1 Mg Tablet 0.5 Tab PO DAILY Losartan Potassium 100 Mg Tablet 100 Mg PO DAILY Diclofenac Sodium 75 Mg Tablet.dr 75 Mg PO BID Nitrostat (Nitroglycerin) 0.4 Mg Tab.subl 0.4 Mg SL PRN Viagra (Sildenafil Citrate) 100 Mg Tablet 100 Mg PO PRN Potassium Chloride 10 Meq Tablet.er 10 Meq PO DAILY Metformin Hcl 1,000 Mg Tablet 1,000 Mg PO DAILY08 Hydrochlorothiazide Tablet (Hydrochlorothiazide) 25 Mg Tablet 25 Mg PO DAILY Metoprolol Tartrate 100 Mg Tablet 50 Mg PO BID Flovent 50MCG Diskus (Fluticasone Propionate) 50 Mcg Disk.w.dev 50 Mcg IH DAILY Citalopram Hbr (Citalopram Hydrobromide) 20 Mg Tablet 20 Mg PO BID Nifedipine Er (Nifedipine) 90 Mg Tab.er.24 90 Mg PO DAILY Multivitamins (Multivitamin) 1 Each Tablet 1 Each PO DAILY Fish Oil 1,200 Mg Fish Oil (Fish Oil/Dha/Epa) 1 Each Capsule 1 Each PO BID Vitals/I & O Vital Sign - Last 24 Hours 07/26/17 07/26/17 07/26/17 07/26/17 11:00 11:28 11:56 12:00 Pulse 64 62 Resp 26 16 B/P (MAP) 120/60 (80) 119/59 (79) Pulse Ox 95 95 94 O2 Delivery Nasal Cannula Nasal Cannula Nasal Cannula Nasal Cannula O2 Flow Rate 5.0 6.0 5.0 5.0 07/26/17 07/26/17 07/26/17 07/26/17 14:14 16:00 17:00 17:06 Temp 98.4 98.4 98.4 98.4 Pulse 65 66 65 Resp 20 20 20 B/P (MAP) 104/54 (71) 114/56 (75) 104/54 (71) Pulse Ox 93 92 93 O2 Delivery Nasal Cannula Nasal Cannula Nasal Cannula Nasal Cannula O2 Flow Rate 5.0 5.0 5.0 5.0 07/26/17 07/26/17 07/26/17 07/26/17 19:00 20:00 20:00 20:02 Temp 100.9 100.9 Pulse 83 85 Resp 23 17 B/P (MAP) 121/55 (77) 121/55 (77) Pulse Ox 95 95 94 O2 Delivery Nasal Cannula Nasal Cannula Nasal Cannula Nasal Cannula O2 Flow Rate 5.0 5.0 5.0 6.0 07/26/17 07/26/17 07/26/17 07/26/17 20:46 21:00 21:40 22:00 Pulse 96 82 77 Resp 22 22 22 B/P (MAP) 129/58 119/61 (80) 96/43 (60) Pulse Ox 93 93 92 O2 Delivery Nasal Cannula Nasal Cannula Nasal Cannula O2 Flow Rate 5.0 5.0 6.0 07/26/17 07/26/17 07/27/17 07/27/17 22:40 23:00 00:00 00:00 Temp 100.0 100.0 Pulse 72 73 Resp 17 B/P (MAP) 118/58 (78) 125/63 (83) Pulse Ox 92 97 O2 Delivery Nasal Cannula Bi-pap BiPAP/CPAP O2 Flow Rate 8.0 07/27/17 07/27/17 07/27/17 07/27/17 00:24 01:00 02:00 02:41 Pulse 69 67 Resp 17 20 B/P (MAP) 111/59 (76) 106/58 (74) Pulse Ox 98 99 99 98 O2 Delivery BiPAP/CPAP BiPAP/CPAP BiPAP/CPAP BiPAP/CPAP 07/27/17 07/27/17 07/27/17 07/27/17 03:00 04:00 04:00 04:42 Pulse 61 59 Resp 16 19 B/P (MAP) 113/61 (78) 116/67 (83) Pulse Ox 100 99 100 O2 Delivery BiPAP/CPAP Bi-pap BiPAP/CPAP BiPAP/CPAP 07/27/17 07/27/17 07/27/17 07/27/17 05:00 06:00 07:27 07:40 Temp 97.7 97.7 Pulse 69 73 Resp 17 22 B/P (MAP) 116/61 (79) 115/61 (79) Pulse Ox 99 92 90 90 O2 Delivery BiPAP/CPAP Nasal Cannula Nasal Cannula O2 Flow Rate 10.0 10.0 10.0 07/27/17 07/27/17 07/27/17 07/27/17 07:46 08:02 08:29 08:30 Temp 98.5 98.5 Pulse 92 97 97 Resp 22 B/P (MAP) 150/64 (92) 150/64 150/64 Pulse Ox 93 O2 Delivery Nasal Cannula Nasal Cannula O2 Flow Rate 10.0 10.0 07/27/17 07/27/17 07/27/17 07/27/17 08:30 08:35 08:41 09:25 Pulse 98 B/P (MAP) 150/64 Pulse Ox 93 93 93 O2 Delivery Nasal Cannula Nasal Cannula Nasal Cannula O2 Flow Rate 10.0 10.0 10.0 MICHELLE OGLESBY MD Jul 27, 2017 10:54
[2017-07-27] MEDS: VANCOMYCIN 1.25 GM in IV NORMAL SALINE 250ML 250 ML IV SCH ×2 (10:58→21:37)
[2017-07-27 11:28] LABS: CKMB MASS 9.5 ng/mL (0.0-3.6)
--- NOTE | 2017-07-27 12:59 | PDOC ---
PULMONARY PROGRESS NOTES Subjective fully awake, no soa Vitals Vital Signs Date Time Temp Pulse Resp B/P (MAP) Pulse Ox O2 Delivery O2 Flow Rate FiO2 07/27/17 11:50 Nasal Cannula 10.0 07/27/17 11:29 93 07/27/17 11:00 85 19 119/65 (83) 07/27/17 08:02 98.5 98.5 General: Alert, No acute distress Lungs: Clear Cardiovascular: S1, S2 Abdomen: Soft Neuro Exam: Alert Extremities: No Edema Skin: Warm Labs Laboratory Tests Test 07/25/17 18:00 07/25/17 18:59 07/26/17 01:51 07/26/17 02:04 White Blood Count 18.9 x10^3/uL (4.0-11.0) Red Blood Count 4.02 x10^6/uL (4.30-5.70) Hemoglobin 11.2 g/dL (13.0-17.5) Hematocrit 32.7 % (39.0-53.0) Mean Corpuscular Volume 81 fL (79-100) Mean Corpuscular Hemoglobin 28 pg (25-35) Mean Corpuscular Hemoglobin Concent 34 g/dL (31-37) Red Cell Distribution Width 14.0 % (11.5-14.5) Platelet Count 247 x10^3/uL (140-400) Neutrophils (%) (Auto) 91 % (31-73) Lymphocytes (%) (Auto) 2 % (24-48) Monocytes (%) (Auto) 7 % (0-9) Eosinophils (%) (Auto) 0 % (0-3) Basophils (%) (Auto) 0 % (0-3) Neutrophils # (Auto) 17.1 x10^3uL (1.8-7.7) Lymphocytes # (Auto) 0.4 x10^3/uL (1.0-4.8) Monocytes # (Auto) 1.4 x10^3/uL (0.0-1.1) Eosinophils # (Auto) 0.0 x10^3/uL (0.0-0.7) Basophils # (Auto) 0.1 x10^3/uL (0.0-0.2) Segmented Neutrophils % 92 % (35-66) Lymphocytes % 2 % (24-48) Monocytes % 6 % (0-10) Platelet Estimate Increased (ADEQUATE) Polychromasia Slight Target Cells Occ Schistocytes Occ Prothrombin Time 14.2 SEC (11.7-14.0) Prothromb Time International Ratio 1.2 (0.8-1.1) Sodium Level 128 mmol/L (136-145) Potassium Level 3.4 mmol/L (3.5-5.1) Chloride Level 90 mmol/L (98-107) Carbon Dioxide Level 25 mmol/L (21-32) Anion Gap 13 (6-14) Blood Urea Nitrogen 19 mg/dL (8-26) Creatinine 1.5 mg/dL (0.7-1.3) Estimated GFR (Cockcroft-Gault) 46.3 Glucose Level 105 mg/dL (70-99) Lactic Acid Level 3.1 mmol/L (0.4-2.0) Calcium Level 9.2 mg/dL (8.5-10.1) Magnesium Level 1.8 mg/dL (1.8-2.4) Total Bilirubin 0.6 mg/dL (0.2-1.0) Direct Bilirubin 0.2 mg/dL (0.0-0.2) Aspartate Amino Transf (AST/SGOT) 25 U/L (15-37) Alanine Aminotransferase (ALT/SGPT) 34 U/L (16-63) Alkaline Phosphatase 77 U/L (46-116) Creatine Kinase 565 U/L (39-308) Creatine Kinase MB (Mass) 2.4 ng/mL (0.0-3.6) Creatine Kinase MB Relative Index 0.4 % (0-4) Troponin I Quantitative 0.043 ng/mL (0.000-0.055) OL-Fhd-R-Type Natriuretic Peptide 1492 pg/mL (0-124) Total Protein 7.6 g/dL (6.4-8.2) Albumin 3.5 g/dL (3.4-5.0) Lipase 175 U/L (73-393) Thyroid Stimulating Hormone (TSH) 1.874 uIU/mL (0.358-3.74) Ethyl Alcohol Level < 10 mg/dL (0-10) Urine Color Yellow Urine Clarity Clear Urine pH 6.0 Urine Specific [place] 1.015 Urine Protein 100 mg/dL (NEG-TRACE) Urine Glucose (UA) Negative mg/dL (NEG) Urine Ketones (Stick) Negative mg/dL (NEG) Urine Blood Large (NEG) Urine Nitrite Negative (NEG) Urine Bilirubin Negative (NEG) Urine Urobilinogen Dipstick 0.2 mg/dL (0.2 mg/dL) Urine Leukocyte Esterase Negative (NEG) Urine RBC 11-20 /HPF (0-2) Urine WBC Occ /HPF (0-4) Urine Squamous Epithelial Cells Occ /LPF Urine Bacteria 0 /HPF (0-FEW) Urine Opiates Screen Neg (NEG) Urine Methadone Screen Neg (NEG) Urine Barbiturates Neg (NEG) Urine Phencyclidine Screen Neg (NEG) Urine Amphetamine/Methamphetamine Neg (NEG) Urine Benzodiazepines Screen Neg (NEG) Urine Cocaine Screen Neg (NEG) Urine Cannabinoids Screen Neg (NEG) Urine Ethyl Alcohol Neg (NEG) Glucose (Fingerstick) 182 mg/dL (70-99) O2 Saturation 82 % (92-99) Arterial Blood pH 7.40 (7.35-7.45) Arterial Blood pH (Temp corrected) 7.39 Arterial Blood pCO2 at Patient Temp 39 mmHg (35-46) Arterial Blood pCO2 (Temp correct) 41 mmHg Arterial Blood pO2 at Patient Temp 46 mmHg (65-108) Arterial Blood pO2 (Temp corrected) 49 mmHg Arterial Blood HCO3 24 mmol/L (21-28) Arterial Blood Base Excess -1 mmol/L (-3-3) FiO2 100.0 Test 07/26/17 02:10 07/26/17 02:15 07/26/17 02:30 07/26/17 03:30 White Blood Count 24.3 x10^3/uL (4.0-11.0) Red Blood Count 4.61 x10^6/uL (4.30-5.70) Hemoglobin 12.6 g/dL (13.0-17.5) Hematocrit 38.1 % (39.0-53.0) Mean Corpuscular Volume 83 fL (79-100) Mean Corpuscular Hemoglobin 27 pg (25-35) Mean Corpuscular Hemoglobin Concent 33 g/dL (31-37) Red Cell Distribution Width 14.1 % (11.5-14.5) Platelet Count 260 x10^3/uL (140-400) Neutrophils (%) (Auto) 89 % (31-73) Lymphocytes (%) (Auto) 3 % (24-48) Monocytes (%) (Auto) 8 % (0-9) Eosinophils (%) (Auto) 0 % (0-3) Basophils (%) (Auto) 0 % (0-3) Neutrophils # (Auto) 21.7 x10^3uL (1.8-7.7) Lymphocytes # (Auto) 0.6 x10^3/uL (1.0-4.8) Monocytes # (Auto) 1.9 x10^3/uL (0.0-1.1) Eosinophils # (Auto) 0.0 x10^3/uL (0.0-0.7) Basophils # (Auto) 0.0 x10^3/uL (0.0-0.2) D-Dimer (Natalya) 2.06 ug/mlFEU (0.00-0.50) Sodium Level 127 mmol/L (136-145) Potassium Level 3.3 mmol/L (3.5-5.1) Chloride Level 90 mmol/L (98-107) Carbon Dioxide Level 24 mmol/L (21-32) Anion Gap 13 (6-14) Blood Urea Nitrogen 18 mg/dL (8-26) Creatinine 1.1 mg/dL (0.7-1.3) Estimated GFR (Cockcroft-Gault) 66.2 Glucose Level 185 mg/dL (70-99) Calcium Level 8.7 mg/dL (8.5-10.1) Troponin I Quantitative 4.900 ng/mL (0.000-0.055) Creatine Kinase 3442 U/L (39-308) Creatine Kinase MB (Mass) 17.8 ng/mL (0.0-3.6) Creatine Kinase MB Relative Index 0.5 % (0-4) Nasal Screen MRSA (PCR) Negative (Negative) Lactic Acid Level 1.0 mmol/L (0.4-2.0) Test 07/26/17 06:21 07/26/17 08:21 07/26/17 09:53 07/26/17 11:55 O2 Saturation 99 % (92-99) Arterial Blood pH 7.50 (7.35-7.45) Arterial Blood pCO2 at Patient Temp 29 mmHg (35-46) Arterial Blood pO2 at Patient Temp 138 mmHg (65-108) Arterial Blood HCO3 22 mmol/L (21-28) Arterial Blood Base Excess 0 mmol/L (-3-3) Glucose (Fingerstick) 168 mg/dL (70-99) 172 mg/dL (70-99) Heparin Anti-Xa Act, Unfractionated 0.55 IU/mL (0.30-0.70) Troponin I Quantitative 15.867 ng/mL (0.000-0.055) Test 07/26/17 12:21 07/26/17 13:15 07/26/17 17:00 07/26/17 18:30 O2 Saturation 93 % (92-99) Arterial Blood pH 7.47 (7.35-7.45) Arterial Blood pCO2 at Patient Temp 31 mmHg (35-46) Arterial Blood pO2 at Patient Temp 65 mmHg (65-108) Arterial Blood HCO3 22 mmol/L (21-28) Arterial Blood Base Excess -1 mmol/L (-3-3) FiO2 40 White Blood Count 16.1 x10^3/uL (4.0-11.0) Red Blood Count 3.85 x10^6/uL (4.30-5.70) Hemoglobin 10.7 g/dL (13.0-17.5) Hematocrit 31.8 % (39.0-53.0) Mean Corpuscular Volume 83 fL (79-100) Mean Corpuscular Hemoglobin 28 pg (25-35) Mean Corpuscular Hemoglobin Concent 34 g/dL (31-37) Red Cell Distribution Width 14.1 % (11.5-14.5) Platelet Count 210 x10^3/uL (140-400) Neutrophils (%) (Auto) 86 % (31-73) Lymphocytes (%) (Auto) 6 % (24-48) Monocytes (%) (Auto) 8 % (0-9) Eosinophils (%) (Auto) 0 % (0-3) Basophils (%) (Auto) 0 % (0-3) Neutrophils # (Auto) 13.8 x10^3uL (1.8-7.7) Lymphocytes # (Auto) 0.9 x10^3/uL (1.0-4.8) Monocytes # (Auto) 1.4 x10^3/uL (0.0-1.1) Eosinophils # (Auto) 0.0 x10^3/uL (0.0-0.7) Basophils # (Auto) 0.0 x10^3/uL (0.0-0.2) Segmented Neutrophils % 88 % (35-66) Band Neutrophils % 3 % (0-9) Lymphocytes % 3 % (24-48) Atypical Lymphocytes % (Manual) 2 % (0-0) Monocytes % 4 % (0-10) Platelet Estimate Adequate (ADEQUATE) Sodium Level 128 mmol/L (136-145) Potassium Level 3.2 mmol/L (3.5-5.1) Chloride Level 94 mmol/L (98-107) Carbon Dioxide Level 24 mmol/L (21-32) Anion Gap 10 (6-14) Blood Urea Nitrogen 19 mg/dL (8-26) Creatinine 1.1 mg/dL (0.7-1.3) Estimated GFR (Cockcroft-Gault) 66.2 BUN/Creatinine Ratio 17 (6-20) Glucose Level 166 mg/dL (70-99) Calcium Level 8.1 mg/dL (8.5-10.1) Total Bilirubin 0.5 mg/dL (0.2-1.0) Aspartate Amino Transf (AST/SGOT) 113 U/L (15-37) Alanine Aminotransferase (ALT/SGPT) 46 U/L (16-63) Alkaline Phosphatase 71 U/L (46-116) Total Protein 6.8 g/dL (6.4-8.2) Albumin 2.7 g/dL (3.4-5.0) Albumin/Globulin Ratio 0.7 (1.0-1.7) Glucose (Fingerstick) 136 mg/dL (70-99) Heparin Anti-Xa Act, Unfractionated 0.13 IU/mL (0.30-0.70) Test 07/27/17 05:40 07/27/17 07:39 07/27/17 11:53 White Blood Count 12.2 x10^3/uL (4.0-11.0) Red Blood Count 3.38 x10^6/uL (4.30-5.70) Hemoglobin 9.7 g/dL (13.0-17.5) Hematocrit 27.6 % (39.0-53.0) Mean Corpuscular Volume 82 fL (79-100) Mean Corpuscular Hemoglobin 29 pg (25-35) Mean Corpuscular Hemoglobin Concent 35 g/dL (31-37) Red Cell Distribution Width 13.9 % (11.5-14.5) Platelet Count 176 x10^3/uL (140-400) Sodium Level 129 mmol/L (136-145) Potassium Level 3.5 mmol/L (3.5-5.1) Chloride Level 94 mmol/L (98-107) Carbon Dioxide Level 24 mmol/L (21-32) Anion Gap 11 (6-14) Blood Urea Nitrogen 25 mg/dL (8-26) Creatinine 1.4 mg/dL (0.7-1.3) Estimated GFR (Cockcroft-Gault) 50.1 Glucose Level 130 mg/dL (70-99) Calcium Level 8.1 mg/dL (8.5-10.1) Creatine Kinase 1386 U/L (39-308) Creatine Kinase MB (Mass) 9.5 ng/mL (0.0-3.6) Creatine Kinase MB Relative Index 0.7 % (0-4) Troponin I Quantitative 9.233 ng/mL (0.000-0.055) Triglycerides Level 107 mg/dL (0-150) Cholesterol Level 96 mg/dL (0-200) LDL Cholesterol, Calculated 53 mg/dL (0-100) VLDL Cholesterol, Calculated 21 mg/dL (0-40) Non-HDL Cholesterol Calculated 74 mg/dL (0-129) HDL Cholesterol 22 mg/dL (40-60) Cholesterol/HDL Ratio 4.4 Glucose (Fingerstick) 135 mg/dL (70-99) 177 mg/dL (70-99) Laboratory Tests Test 07/26/17 13:15 07/26/17 17:00 07/26/17 18:30 07/27/17 05:40 White Blood Count 16.1 x10^3/uL (4.0-11.0) 12.2 x10^3/uL (4.0-11.0) Red Blood Count 3.85 x10^6/uL (4.30-5.70) 3.38 x10^6/uL (4.30-5.70) Hemoglobin 10.7 g/dL (13.0-17.5) 9.7 g/dL (13.0-17.5) Hematocrit 31.8 % (39.0-53.0) 27.6 % (39.0-53.0) Mean Corpuscular Volume 83 fL (79-100) 82 fL (79-100) Mean Corpuscular Hemoglobin 28 pg (25-35) 29 pg (25-35) Mean Corpuscular Hemoglobin Concent 34 g/dL (31-37) 35 g/dL (31-37) Red Cell Distribution Width 14.1 % (11.5-14.5) 13.9 % (11.5-14.5) Platelet Count 210 x10^3/uL (140-400) 176 x10^3/uL (140-400) Neutrophils (%) (Auto) 86 % (31-73) Lymphocytes (%) (Auto) 6 % (24-48) Monocytes (%) (Auto) 8 % (0-9) Eosinophils (%) (Auto) 0 % (0-3) Basophils (%) (Auto) 0 % (0-3) Neutrophils # (Auto) 13.8 x10^3uL (1.8-7.7) Lymphocytes # (Auto) 0.9 x10^3/uL (1.0-4.8) Monocytes # (Auto) 1.4 x10^3/uL (0.0-1.1) Eosinophils # (Auto) 0.0 x10^3/uL (0.0-0.7) Basophils # (Auto) 0.0 x10^3/uL (0.0-0.2) Segmented Neutrophils % 88 % (35-66) Band Neutrophils % 3 % (0-9) Lymphocytes % 3 % (24-48) Atypical Lymphocytes % (Manual) 2 % (0-0) Monocytes % 4 % (0-10) Platelet Estimate Adequate (ADEQUATE) Sodium Level 128 mmol/L (136-145) 129 mmol/L (136-145) Potassium Level 3.2 mmol/L (3.5-5.1) 3.5 mmol/L (3.5-5.1) Chloride Level 94 mmol/L (98-107) 94 mmol/L (98-107) Carbon Dioxide Level 24 mmol/L (21-32) 24 mmol/L (21-32) Anion Gap 10 (6-14) 11 (6-14) Blood Urea Nitrogen 19 mg/dL (8-26) 25 mg/dL (8-26) Creatinine 1.1 mg/dL (0.7-1.3) 1.4 mg/dL (0.7-1.3) Estimated GFR (Cockcroft-Gault) 66.2 50.1 BUN/Creatinine Ratio 17 (6-20) Glucose Level 166 mg/dL (70-99) 130 mg/dL (70-99) Calcium Level 8.1 mg/dL (8.5-10.1) 8.1 mg/dL (8.5-10.1) Total Bilirubin 0.5 mg/dL (0.2-1.0) Aspartate Amino Transf (AST/SGOT) 113 U/L (15-37) Alanine Aminotransferase (ALT/SGPT) 46 U/L (16-63) Alkaline Phosphatase 71 U/L (46-116) Total Protein 6.8 g/dL (6.4-8.2) Albumin 2.7 g/dL (3.4-5.0) Albumin/Globulin Ratio 0.7 (1.0-1.7) Glucose (Fingerstick) 136 mg/dL (70-99) Heparin Anti-Xa Act, Unfractionated 0.13 IU/mL (0.30-0.70) Creatine Kinase 1386 U/L (39-308) Creatine Kinase MB (Mass) 9.5 ng/mL (0.0-3.6) Creatine Kinase MB Relative Index 0.7 % (0-4) Troponin I Quantitative 9.233 ng/mL (0.000-0.055) Triglycerides Level 107 mg/dL (0-150) Cholesterol Level 96 mg/dL (0-200) LDL Cholesterol, Calculated 53 mg/dL (0-100) VLDL Cholesterol, Calculated 21 mg/dL (0-40) Non-HDL Cholesterol Calculated 74 mg/dL (0-129) HDL Cholesterol 22 mg/dL (40-60) Cholesterol/HDL Ratio 4.4 Test 07/27/17 07:39 07/27/17 11:53 Glucose (Fingerstick) 135 mg/dL (70-99) 177 mg/dL (70-99) Medications Active Scripts Medications Dose Route/Sig Max Daily Dose Days Date Category Tamsulosin Hcl 0.4 Mg Cap.er.24h 0.4 Mg PO DAILY 03/31/17 Reported Metformin Hcl 500 Mg Tablet 500 Mg PO DAILYBFRSUP 03/31/17 Reported Colace (Docusate Sodium) 100 Mg Capsule 100 Mg PO BID 60 03/08/17 Rx Methocarbamol 750 Mg Tablet 750 Mg PO TID 60 03/08/17 Rx Hydrocodone-Apap 7.5-325 (Hydrocodone Bit/Acetaminophen) 1 Each Tablet 1 Tab PO PRN Q6HRS PRN 60 03/08/17 Rx Gabapentin 100 Mg Capsule 100 Mg PO TID 01/27/17 Reported Lovastatin 20 Mg Tablet 1 Tab PO DAILY 01/27/17 Reported Kpiyvqvuop-Bfjcovyjleb-Fvj Tab (Gluc/Jonah-Msm#2/C/D3/Vidal/Born) 1 Each Tablet 1 Each PO BID 07/17/15 Reported Glimepiride 1 Mg Tablet 0.5 Tab PO DAILY 07/17/15 Reported Losartan Potassium 100 Mg Tablet 100 Mg PO DAILY 01/10/14 Reported Diclofenac Sodium 75 Mg Tablet.dr 75 Mg PO BID 01/10/14 Reported Nitrostat (Nitroglycerin) 0.4 Mg Tab.subl 0.4 Mg SL PRN 01/10/14 Reported Viagra (Sildenafil Citrate) 100 Mg Tablet 100 Mg PO PRN 01/10/14 Reported Potassium Chloride 10 Meq Tablet.er 10 Meq PO DAILY 01/10/14 Reported Metformin Hcl 1,000 Mg Tablet 1,000 Mg PO DAILY08 01/10/14 Reported Hydrochlorothiazide Tablet (Hydrochlorothiazide) 25 Mg Tablet 25 Mg PO DAILY 01/10/14 Reported Metoprolol Tartrate 100 Mg Tablet 50 Mg PO BID 01/10/14 Reported Flovent 50MCG Diskus (Fluticasone Propionate) 50 Mcg Disk.w.dev 50 Mcg IH DAILY 01/10/14 Reported Citalopram Hbr (Citalopram Hydrobromide) 20 Mg Tablet 20 Mg PO BID 01/10/14 Reported Nifedipine Er (Nifedipine) 90 Mg Tab.er.24 90 Mg PO DAILY 01/10/14 Reported Multivitamins (Multivitamin) 1 Each Tablet 1 Each PO DAILY 01/10/14 Reported Fish Oil 1,200 Mg Fish Oil (Fish Oil/Dha/Epa) 1 Each Capsule 1 Each PO BID 01/10/14 Reported Impression . 1. Acute hypoxic respiratory failure secondary to development of acute interstitial edema. clinically better 2. Acute non-ST myocardial infarction with markedly elevated troponin levels. 3. Acute encephalopathy, probably contributed by hypoxia. resolved. 4. Increased CPK secondary to rhabdomyolysis. 5. Syncope secondary to myocardial infarction. 6. No significant history of tobacco use. 7. Leukocytosis. The patient had recent back surgery and had staph infection. now with Staph bacteremia ID has been following the patient. 8. No evidence of PE by VQ Plan . 1. Continue diuresis. 2. Follow chest x-rays 07/27 with mild improvement in CHF 3. P.r.n. BiPAP. 4. Will eventually need a cardiac catheterization once bacteremia is resolved 5. Monitor white cell count. 6. P.r.n. bronchodilators. 7. Follow CPKs. 8. Discussed with RN and KIM HAJI MD Jul 27, 2017 12:59
--- NOTE | 2017-07-27 13:09 | RAD ---
AP chest. History: Hypoxia, CHF AP view was taken of the chest. The heart is within normal limits in size. There are bilateral perihilar infiltrates from developing pneumonia or pulmonary edema with mild worsening compared to one day ago. There is no effusion. Impression: 1. Worsening perihilar infiltrates or edema.
[2017-07-27] MEDS ORDERED: FUROSEMIDE 40 MG/4 ML VIAL. IVP ONE (14:00)
--- NOTE | 2017-07-27 14:16 | PDOC ---
Provider Note Provider Note Covering for Dr. Lopez. Patient is much more alert today. Denies chest pain. He complains of being short of breath. He states he had chills on the day of admission. Became confused and drove into the wrong driveway. After not being able to open the door of what he thought was his home he fell on the ground. He lay on the ground for about an hour before being found. He has no symptoms of having had CHF in the past. Examination heart rate is 80/m. Blood pressure 110/70. Lungs show bibasilar rales. He is on oxygen at 10 L/m. O2 sat is 90%. No edema of the legs. He has been drinking a lot of fluids and has been urinating. Chest x-ray today shows worsening infiltrates suggestive of pulmonary edema. CK and troponin are elevated. Low suspicion for PE No evidence of DVT. Lumbar spine MRI was unremarkable. IMPRESSION: Bacteremia with gram-positive cocci being treated with broad-spectrum antibiotics Identification of organism pending. Elevated CK and troponin. Consider rhabdomyolysis. Consider non-STEMI. Pulmonary infiltrates and hypoxia probably due to CHF. Status of left ventricular function is unknown. No significant murmurs to be concerned about acute valvular dysfunction from endocarditis. Back pain probably muscle pain from fall. PLAN IV Lasix Watch for worsening hypoxia Restrict fluid. ECHO tomorrow. Dr. Lopez returns tomorrow. KARLEY WEBSTER MD Jul 27, 2017 14:16
[2017-07-27 14:25] LABS: PHOSPHORUS 3.8 mg/dL (2.6-4.7)
[2017-07-27] MEDS: metFORMIN 500 MG TABLET PO SCH (16:57)
--- NOTE | 2017-07-27 20:09 | PDOC ---
PROGRESS NOTES Plan This patient is 72-year-old male who is having memory problems information obtained from patient and multiple family members at bedside. Patient is recently having memory problems he will be more forgetful. Patient has this complains of memory problems over several months. Patient is also being evaluated for an STEMI. Patient was hypoxic. Patient IS an was dropping to 40s. Patient is currently alert and oriented denies any complaint of difficulty speaking weakness tingling numbness. An denies any complaint of headache nausea vomiting. He had MRI brain done which showed no acute intracranial findings. Patient also had diffuse age expected atrophy. MRI was negative for any acute stroke. Encephalopathy with underlying memory problems. Patient has a nonfocal neurologic exam patient is currently alert and oriented. MRI negative for any acute stroke. Will need dementia evaluation check vitamin B12 TSH. Can also further be done neuropsychological evaluation as outpatient NSTEMI Cardiac evaluation History of hypertension continue treat and monitor Hyperlipidemia continue medication Diabetes continue treat and monitor Chronic back pain. Check MRI lumbar spine. Check for infectious or metabolic etiology On antibiotics per ID Follow ID recommendations. PTOT evaluation Continue medical management plan discussed in detail. Subjective no acute events family at bed side Objective Vital Signs Date Time Temp Pulse Resp B/P (MAP) Pulse Ox O2 Delivery O2 Flow Rate FiO2 07/27/17 20:01 80 20 111/62 (78) 91 Nasal Cannula 7.0 07/27/17 19:00 98.4 98.4 Intake and Output 07/28/17 07:00 Intake Total 2600 ml Output Total 780 ml Balance 1820 ml Intake Oral 2500 ml IV Total 100 ml Output Urine Total 780 ml PHYSICAL EXAM General appearance is in acute distress. HEENT: Normocephalic and nontraumatic. Eyes, nose, ears, and throat are unremarkable. Neck is supple. No lymphadenopathy. Cardiovascular: S1, S2, regular rate and rhythm. Pulmonary: Clear to auscultation bilaterally. Abdomen: Bowel sounds are positive. Abdomen is soft, nontender, and nondistended. NEUROLOGICAL EXAMINATION: Alert Oriented to time, place and person. PERRL. EOMI. CN: no focal findings. Muscle tone: within normal. Muscle strength: good DTR: 1- 2 Plantar reflex: Flexor response bilaterally Gait: not examined in bed. Sensory exam: no abnormal findings. No obvious cerebellar signs elicited. Review of Relevant I have reviewed the following items kyler (where applicable) has been applied. Labs Laboratory Tests Test 07/26/17 01:51 07/26/17 02:04 07/26/17 02:10 07/26/17 02:15 Glucose (Fingerstick) 182 mg/dL (70-99) O2 Saturation 82 % (92-99) Arterial Blood pH 7.40 (7.35-7.45) Arterial Blood pH (Temp corrected) 7.39 Arterial Blood pCO2 at Patient Temp 39 mmHg (35-46) Arterial Blood pCO2 (Temp correct) 41 mmHg Arterial Blood pO2 at Patient Temp 46 mmHg (65-108) Arterial Blood pO2 (Temp corrected) 49 mmHg Arterial Blood HCO3 24 mmol/L (21-28) Arterial Blood Base Excess -1 mmol/L (-3-3) FiO2 100.0 White Blood Count 24.3 x10^3/uL (4.0-11.0) Red Blood Count 4.61 x10^6/uL (4.30-5.70) Hemoglobin 12.6 g/dL (13.0-17.5) Hematocrit 38.1 % (39.0-53.0) Mean Corpuscular Volume 83 fL (79-100) Mean Corpuscular Hemoglobin 27 pg (25-35) Mean Corpuscular Hemoglobin Concent 33 g/dL (31-37) Red Cell Distribution Width 14.1 % (11.5-14.5) Platelet Count 260 x10^3/uL (140-400) Neutrophils (%) (Auto) 89 % (31-73) Lymphocytes (%) (Auto) 3 % (24-48) Monocytes (%) (Auto) 8 % (0-9) Eosinophils (%) (Auto) 0 % (0-3) Basophils (%) (Auto) 0 % (0-3) Neutrophils # (Auto) 21.7 x10^3uL (1.8-7.7) Lymphocytes # (Auto) 0.6 x10^3/uL (1.0-4.8) Monocytes # (Auto) 1.9 x10^3/uL (0.0-1.1) Eosinophils # (Auto) 0.0 x10^3/uL (0.0-0.7) Basophils # (Auto) 0.0 x10^3/uL (0.0-0.2) D-Dimer (Natalya) 2.06 ug/mlFEU (0.00-0.50) Sodium Level 127 mmol/L (136-145) Potassium Level 3.3 mmol/L (3.5-5.1) Chloride Level 90 mmol/L (98-107) Carbon Dioxide Level 24 mmol/L (21-32) Anion Gap 13 (6-14) Blood Urea Nitrogen 18 mg/dL (8-26) Creatinine 1.1 mg/dL (0.7-1.3) Estimated GFR (Cockcroft-Gault) 66.2 Glucose Level 185 mg/dL (70-99) Calcium Level 8.7 mg/dL (8.5-10.1) Troponin I Quantitative 4.900 ng/mL (0.000-0.055) Creatine Kinase 3442 U/L (39-308) Creatine Kinase MB (Mass) 17.8 ng/mL (0.0-3.6) Creatine Kinase MB Relative Index 0.5 % (0-4) Test 07/26/17 02:30 07/26/17 03:30 07/26/17 06:21 07/26/17 08:21 Nasal Screen MRSA (PCR) Negative (Negative) Lactic Acid Level 1.0 mmol/L (0.4-2.0) O2 Saturation 99 % (92-99) Arterial Blood pH 7.50 (7.35-7.45) Arterial Blood pCO2 at Patient Temp 29 mmHg (35-46) Arterial Blood pO2 at Patient Temp 138 mmHg (65-108) Arterial Blood HCO3 22 mmol/L (21-28) Arterial Blood Base Excess 0 mmol/L (-3-3) Glucose (Fingerstick) 168 mg/dL (70-99) Test 07/26/17 09:53 07/26/17 11:55 07/26/17 12:21 07/26/17 13:15 Heparin Anti-Xa Act, Unfractionated 0.55 IU/mL (0.30-0.70) Troponin I Quantitative 15.867 ng/mL (0.000-0.055) Glucose (Fingerstick) 172 mg/dL (70-99) O2 Saturation 93 % (92-99) Arterial Blood pH 7.47 (7.35-7.45) Arterial Blood pCO2 at Patient Temp 31 mmHg (35-46) Arterial Blood pO2 at Patient Temp 65 mmHg (65-108) Arterial Blood HCO3 22 mmol/L (21-28) Arterial Blood Base Excess -1 mmol/L (-3-3) FiO2 40 White Blood Count 16.1 x10^3/uL (4.0-11.0) Red Blood Count 3.85 x10^6/uL (4.30-5.70) Hemoglobin 10.7 g/dL (13.0-17.5) Hematocrit 31.8 % (39.0-53.0) Mean Corpuscular Volume 83 fL (79-100) Mean Corpuscular Hemoglobin 28 pg (25-35) Mean Corpuscular Hemoglobin Concent 34 g/dL (31-37) Red Cell Distribution Width 14.1 % (11.5-14.5) Platelet Count 210 x10^3/uL (140-400) Neutrophils (%) (Auto) 86 % (31-73) Lymphocytes (%) (Auto) 6 % (24-48) Monocytes (%) (Auto) 8 % (0-9) Eosinophils (%) (Auto) 0 % (0-3) Basophils (%) (Auto) 0 % (0-3) Neutrophils # (Auto) 13.8 x10^3uL (1.8-7.7) Lymphocytes # (Auto) 0.9 x10^3/uL (1.0-4.8) Monocytes # (Auto) 1.4 x10^3/uL (0.0-1.1) Eosinophils # (Auto) 0.0 x10^3/uL (0.0-0.7) Basophils # (Auto) 0.0 x10^3/uL (0.0-0.2) Segmented Neutrophils % 88 % (35-66) Band Neutrophils % 3 % (0-9) Lymphocytes % 3 % (24-48) Atypical Lymphocytes % (Manual) 2 % (0-0) Monocytes % 4 % (0-10) Platelet Estimate Adequate (ADEQUATE) Sodium Level 128 mmol/L (136-145) Potassium Level 3.2 mmol/L (3.5-5.1) Chloride Level 94 mmol/L (98-107) Carbon Dioxide Level 24 mmol/L (21-32) Anion Gap 10 (6-14) Blood Urea Nitrogen 19 mg/dL (8-26) Creatinine 1.1 mg/dL (0.7-1.3) Estimated GFR (Cockcroft-Gault) 66.2 BUN/Creatinine Ratio 17 (6-20) Glucose Level 166 mg/dL (70-99) Calcium Level 8.1 mg/dL (8.5-10.1) Total Bilirubin 0.5 mg/dL (0.2-1.0) Aspartate Amino Transf (AST/SGOT) 113 U/L (15-37) Alanine Aminotransferase (ALT/SGPT) 46 U/L (16-63) Alkaline Phosphatase 71 U/L (46-116) Total Protein 6.8 g/dL (6.4-8.2) Albumin 2.7 g/dL (3.4-5.0) Albumin/Globulin Ratio 0.7 (1.0-1.7) Test 07/26/17 17:00 07/26/17 18:30 07/27/17 05:40 07/27/17 07:39 Glucose (Fingerstick) 136 mg/dL (70-99) 135 mg/dL (70-99) Heparin Anti-Xa Act, Unfractionated 0.13 IU/mL (0.30-0.70) White Blood Count 12.2 x10^3/uL (4.0-11.0) Red Blood Count 3.38 x10^6/uL (4.30-5.70) Hemoglobin 9.7 g/dL (13.0-17.5) Hematocrit 27.6 % (39.0-53.0) Mean Corpuscular Volume 82 fL (79-100) Mean Corpuscular Hemoglobin 29 pg (25-35) Mean Corpuscular Hemoglobin Concent 35 g/dL (31-37) Red Cell Distribution Width 13.9 % (11.5-14.5) Platelet Count 176 x10^3/uL (140-400) Sodium Level 129 mmol/L (136-145) Potassium Level 3.5 mmol/L (3.5-5.1) Chloride Level 94 mmol/L (98-107) Carbon Dioxide Level 24 mmol/L (21-32) Anion Gap 11 (6-14) Blood Urea Nitrogen 25 mg/dL (8-26) Creatinine 1.4 mg/dL (0.7-1.3) Estimated GFR (Cockcroft-Gault) 50.1 Glucose Level 130 mg/dL (70-99) Calcium Level 8.1 mg/dL (8.5-10.1) Creatine Kinase 1386 U/L (39-308) Creatine Kinase MB (Mass) 9.5 ng/mL (0.0-3.6) Creatine Kinase MB Relative Index 0.7 % (0-4) Troponin I Quantitative 9.233 ng/mL (0.000-0.055) Triglycerides Level 107 mg/dL (0-150) Cholesterol Level 96 mg/dL (0-200) LDL Cholesterol, Calculated 53 mg/dL (0-100) VLDL Cholesterol, Calculated 21 mg/dL (0-40) Non-HDL Cholesterol Calculated 74 mg/dL (0-129) HDL Cholesterol 22 mg/dL (40-60) Cholesterol/HDL Ratio 4.4 Test 07/27/17 11:53 07/27/17 13:41 07/27/17 16:55 Glucose (Fingerstick) 177 mg/dL (70-99) 173 mg/dL (70-99) Lactic Acid Level 1.9 mmol/L (0.4-2.0) Phosphorus Level 3.8 mg/dL (2.6-4.7) Creatine Kinase 1159 U/L (39-308) Laboratory Tests Test 07/27/17 05:40 07/27/17 07:39 07/27/17 11:53 07/27/17 13:41 White Blood Count 12.2 x10^3/uL (4.0-11.0) Red Blood Count 3.38 x10^6/uL (4.30-5.70) Hemoglobin 9.7 g/dL (13.0-17.5) Hematocrit 27.6 % (39.0-53.0) Mean Corpuscular Volume 82 fL (79-100) Mean Corpuscular Hemoglobin 29 pg (25-35) Mean Corpuscular Hemoglobin Concent 35 g/dL (31-37) Red Cell Distribution Width 13.9 % (11.5-14.5) Platelet Count 176 x10^3/uL (140-400) Sodium Level 129 mmol/L (136-145) Potassium Level 3.5 mmol/L (3.5-5.1) Chloride Level 94 mmol/L (98-107) Carbon Dioxide Level 24 mmol/L (21-32) Anion Gap 11 (6-14) Blood Urea Nitrogen 25 mg/dL (8-26) Creatinine 1.4 mg/dL (0.7-1.3) Estimated GFR (Cockcroft-Gault) 50.1 Glucose Level 130 mg/dL (70-99) Calcium Level 8.1 mg/dL (8.5-10.1) Creatine Kinase 1386 U/L (39-308) 1159 U/L (39-308) Creatine Kinase MB (Mass) 9.5 ng/mL (0.0-3.6) Creatine Kinase MB Relative Index 0.7 % (0-4) Troponin I Quantitative 9.233 ng/mL (0.000-0.055) Triglycerides Level 107 mg/dL (0-150) Cholesterol Level 96 mg/dL (0-200) LDL Cholesterol, Calculated 53 mg/dL (0-100) VLDL Cholesterol, Calculated 21 mg/dL (0-40) Non-HDL Cholesterol Calculated 74 mg/dL (0-129) HDL Cholesterol 22 mg/dL (40-60) Cholesterol/HDL Ratio 4.4 Glucose (Fingerstick) 135 mg/dL (70-99) 177 mg/dL (70-99) Lactic Acid Level 1.9 mmol/L (0.4-2.0) Phosphorus Level 3.8 mg/dL (2.6-4.7) Test 07/27/17 16:55 Glucose (Fingerstick) 173 mg/dL (70-99) Microbiology 07/25/17 Blood Culture - Preliminary, Resulted 07/25/17 Blood Culture Result 1 (LISET) - Preliminary, Resulted Medications Current Medications Citalopram Hydrobromide (CeleXA) 20 mg BID PO Last administered on 07/27/17 08 :23; Start 07/25/17 at 21:00 Docusate Sodium (Colace) 100 mg BID PO Last administered on 07/27/17 08:29; Start 07/25/17 at 21:00 Gabapentin (Neurontin) 100 mg TID PO Last administered on 07/27/17 14:14; Start 07/25/17 at 21:00 Hydrochlorothiazide (Hydrodiuril) 25 mg DAILY PO Last administered on 08:30; Start 07/26/17 at 09:00; Stop 07/27/17 at 14:23; Status DC Acetaminophen/ Hydrocodone Bitart (Lortab 7.5/325) 1 tab PRN Q6HRS PRN PO PAIN Last administered on 07/27/17 07:40; Start 07/25/17 at 19:45 Metformin HCl (Glucophage) 1,000 mg DAILY08 PO Last administered on 07/27/17 07:41; Start 07/26/17 at 08:00 Metformin HCl (Glucophage) 500 mg DAILYBFRSUP PO Last administered on 16:57; Start 07/26/17 at 17:00 Methocarbamol (Robaxin) 750 mg TID PO Last administered on 07/26/17 08:38; Start 07/25/17 at 21:00; Stop 07/26/17 at 18:44; Status DC Potassium Chloride (Klor-Con) 10 meq DAILYWBKFT PO Last administered on 08:33; Start 07/26/17 at 08:00; Stop 07/26/17 at 08:55; Status DC Tamsulosin HCl (Flomax) 0.4 mg DAILY PO Last administered on 07/27/17 08:29; Start 07/26/17 at 09:00 Diclofenac Sodium (Voltaren) 75 mg BID PO Last administered on 07/27/17 08:23 ; Start 07/25/17 at 21:00 Fish Oil (Fish Oil) 1,000 mg BID PO Last administered on 07/27/17 08:23; Start 07/25/17 at 21:00 Fluticasone Propionate (Flonase) 2 spray DAILY NS Last administered on 08:22; Start 07/26/17 at 09:00 Glimepiride (Amaryl) 0.5 mg DAILY PO Last administered on 07/27/17 08:29; Start 07/26/17 at 09:00 Non-Formulary Medication 1 each BID PO ; Start 07/25/17 at 21:00; Status UNV Losartan Potassium (Cozaar) 100 mg DAILY PO Last administered on 07/27/17 08: 29; Start 07/26/17 at 09:00 Atorvastatin Calcium (Lipitor) 5 mg QHS PO Last administered on 07/26/17 20:45 ; Start 07/25/17 at 21:00 Metoprolol Tartrate (Lopressor) 50 mg BID PO Last administered on 07/27/17 08: 30; Start 07/25/17 at 21:00 Multivitamins (Thera M Plus) 1 tab DAILY PO Last administered on 07/27/17 08: 30; Start 07/26/17 at 09:00 Nifedipine (Procardia Xl) 90 mg DAILY PO Last administered on 07/27/17 08:30; Start 07/26/17 at 09:00 Sodium Chloride 1,000 ml @ 1,000 mls/hr 1X ONCE IV Last administered on 21:56; Start 07/25/17 at 19:45; Stop 07/25/17 at 20:44; Status DC Potassium Chloride (Klor-Con) 40 meq 1X ONCE PO Last administered on 21:41; Start 07/25/17 at 19:45; Stop 07/25/17 at 19:48; Status DC Sodium Chloride 1,000 ml @ 100 mls/hr 1X ONCE IV Last administered on 21:53; Start 07/25/17 at 19:45; Stop 07/26/17 at 05:44; Status DC Insulin Aspart (NovoLOG) 0-7 UNITS TIDWMEALS SQ Last administered on 07/27/17 16:58; Start 07/26/17 at 08:00 Dextrose (Dextrose 50%-Water Syringe) 12.5 gm PRN Q15MIN PRN IV SEE COMMENTS; Start 07/25/17 at 20:00 Info (Do NOT chart on this placeholder) 0.5 each 1X ONCE MC ; Start 07/26/17 at 09:00; Stop 07/26/17 at 09:01; Status UNV Influenza Virus Vaccine Quadrival (Fluarix Quad [id number] Syringe) 0.5 ml ONCE ONCE VAX IM ; Start 07/26/17 at 09:00; Stop 07/26/17 at 09:01; Status DC Albuterol/ Ipratropium (Duoneb) 3 ml RTQID NEB Last administered on 07/27/17 15:12; Start 07/26/17 at 08:00 Albuterol Sulfate (Ventolin Neb Soln) 2.5 mg PRN Q2HRS PRN NEB SHORTNESS OF BREATH Last administered on 07/26/17 02:00; Start 07/26/17 at 01:30 Enoxaparin Sodium (Lovenox 100mg Syringe) 100 mg 1X ONCE SQ Last administered on 07/26/17 02:08; Start 07/26/17 at 02:00; Stop 07/26/17 at 02:04; Status DC Heparin Sodium/ Dextrose 500 ml @ 0 mls/hr CONT PRN IV SEE I/O RECORD Last administered on 07/26/17 03:42; Start 07/26/17 at 03:30 Heparin Sodium (Porcine) (Heparin Sodium) 2,450 unit PRN Q6HRS PRN IV FOR UFH LEVEL LESS THAN 0.2; Start 07/26/17 at 03:30 Info (Anti-Coagulation Monitoring By Pharmacy) 1 each PRN DAILY PRN MC SEE COMMENTS Last administered on 07/27/17 10:04; Start 07/26/17 at 03:30 Vancomycin HCl (Vanco Per Pharmacy) 1 each PRN DAILY PRN MC SEE COMMENTS Last administered on 07/27/17 08:55; Start 07/26/17 at 08:15 Meropenem 1 gm/ Sodium Chloride 100 ml @ 200 mls/hr Q8HRS IV Last administered on 07/27/17 14:14; Start 07/26/17 at 08:30 Vancomycin HCl 2 gm/Sodium Chloride 500 ml @ 250 mls/hr 1X ONCE IV Last administered on 07/26/17 09:27; Start 07/26/17 at 08:30; Stop 07/26/17 at 10:29 ; Status DC Potassium Chloride (Klor-Con) 40 meq DAILYWBKFT PO Last administered on 07:41; Start 07/26/17 at 09:30 Vancomycin HCl 1.25 gm/Sodium Chloride 250 ml @ 167 mls/hr Q12H IV Last administered on 07/27/17 10:58; Start 07/26/17 at 22:00 Vancomycin HCl 1 each 1X ONCE MC ; Start 07/27/17 at 21:30; Stop 07/27/17 at 21 :31 Furosemide (Lasix) 40 mg 1X ONCE IVP Last administered on 07/26/17 11:47; Start 07/26/17 at 11:30; Stop 07/26/17 at 11:31; Status DC Gadobutrol (Gadavist) 10 mmol 1X ONCE IV Last administered on 07/26/17 16:19 ; Start 07/26/17 at 16:15; Stop 07/26/17 at 16:16; Status DC Morphine Sulfate 3 mg PRN Q3HRS PRN IV PAIN Last administered on 07/27/17 17: 00; Start 07/27/17 at 08:30 Morphine Sulfate 4 mg PRN Q3HRS PRN IV PAIN; Start 07/27/17 at 08:30 Morphine Sulfate 5 mg PRN Q3HRS PRN IV PAIN; Start 07/27/17 at 08:45 Gadobutrol (Gadavist) 9 mmol 1X ONCE IV Last administered on 07/27/17 10:37; Start 07/27/17 at 10:15; Stop 07/27/17 at 10:16; Status DC Furosemide (Lasix) 40 mg 1X ONCE IVP Last administered on 07/27/17 14:12; Start 07/27/17 at 14:00; Stop 07/27/17 at 14:01; Status DC Active Scripts Active Colace (Docusate Sodium) 100 Mg Capsule 100 Mg PO BID 60 Days Methocarbamol 750 Mg Tablet 750 Mg PO TID 60 Days Hydrocodone-Apap 7.5-325 (Hydrocodone Bit/Acetaminophen) 1 Each Tablet 1 Tab PO PRN Q6HRS PRN 60 Days Reported Tamsulosin Hcl 0.4 Mg Cap.er.24h 0.4 Mg PO DAILY Metformin Hcl 500 Mg Tablet 500 Mg PO DAILYBFRSUP Gabapentin 100 Mg Capsule 100 Mg PO TID Lovastatin 20 Mg Tablet 1 Tab PO DAILY Hcwnhljnie-Bkbtzwmihah-Lzo Tab (Gluc/Jonah-Msm#2/C/D3/Vidal/Born) 1 Each Tablet 1 Each PO BID Glimepiride 1 Mg Tablet 0.5 Tab PO DAILY Losartan Potassium 100 Mg Tablet 100 Mg PO DAILY Diclofenac Sodium 75 Mg Tablet.dr 75 Mg PO BID Nitrostat (Nitroglycerin) 0.4 Mg Tab.subl 0.4 Mg SL PRN Viagra (Sildenafil Citrate) 100 Mg Tablet 100 Mg PO PRN Potassium Chloride 10 Meq Tablet.er 10 Meq PO DAILY Metformin Hcl 1,000 Mg Tablet 1,000 Mg PO DAILY08 Hydrochlorothiazide Tablet (Hydrochlorothiazide) 25 Mg Tablet 25 Mg PO DAILY Metoprolol Tartrate 100 Mg Tablet 50 Mg PO BID Flovent 50MCG Diskus (Fluticasone Propionate) 50 Mcg Disk.w.dev 50 Mcg IH DAILY Citalopram Hbr (Citalopram Hydrobromide) 20 Mg Tablet 20 Mg PO BID Nifedipine Er (Nifedipine) 90 Mg Tab.er.24 90 Mg PO DAILY Multivitamins (Multivitamin) 1 Each Tablet 1 Each PO DAILY Fish Oil 1,200 Mg Fish Oil (Fish Oil/Dha/Epa) 1 Each Capsule 1 Each PO BID Vitals/I & O Vital Sign - Last 24 Hours 07/26/17 07/26/17 07/26/17 07/26/17 20:46 21:00 21:40 22:00 Pulse 96 82 77 Resp 22 22 22 B/P (MAP) 129/58 119/61 (80) 96/43 (60) Pulse Ox 93 93 92 O2 Delivery Nasal Cannula Nasal Cannula Nasal Cannula O2 Flow Rate 5.0 5.0 6.0 07/26/17 07/26/17 07/27/17 07/27/17 22:40 23:00 00:00 00:00 Temp 100.0 100.0 Pulse 72 73 Resp 17 17 B/P (MAP) 118/58 (78) 125/63 (83) Pulse Ox 92 97 O2 Delivery Nasal Cannula Bi-pap BiPAP/CPAP O2 Flow Rate 8.0 07/27/17 07/27/17 07/27/17 07/27/17 00:24 01:00 02:00 02:41 Pulse 69 67 Resp 17 20 B/P (MAP) 111/59 (76) 106/58 (74) Pulse Ox 98 99 99 98 O2 Delivery BiPAP/CPAP BiPAP/CPAP BiPAP/CPAP BiPAP/CPAP 07/27/17 07/27/17 07/27/17 07/27/17 03:00 04:00 04:00 04:42 Pulse 61 59 Resp 16 19 B/P (MAP) 113/61 (78) 116/67 (83) Pulse Ox 100 99 100 O2 Delivery BiPAP/CPAP Bi-pap BiPAP/CPAP BiPAP/CPAP 07/27/17 07/27/17 07/27/17 07/27/17 05:00 06:00 07:27 07:40 Temp 97.7 97.7 Pulse 69 73 Resp 17 22 B/P (MAP) 116/61 (79) 115/61 (79) Pulse Ox 99 92 90 90 O2 Delivery BiPAP/CPAP Nasal Cannula Nasal Cannula O2 Flow Rate 10.0 10.0 10.0 07/27/17 07/27/17 07/27/17 07/27/17 07:46 08:02 08:29 08:30 Temp 98.5 98.5 Pulse 92 97 97 Resp 22 B/P (MAP) 150/64 (92) 150/64 150/64 Pulse Ox 93 O2 Delivery Nasal Cannula Nasal Cannula O2 Flow Rate 10.0 10.0 07/27/17 07/27/17 07/27/17 07/27/17 08:30 08:35 08:41 09:00 Pulse 98 94 Resp 19 B/P (MAP) 150/64 137/65 (89) Pulse Ox 93 93 91 O2 Delivery Nasal Cannula Nasal Cannula Nasal Cannula O2 Flow Rate 10.0 10.0 10.0 07/27/17 07/27/17 07/27/17 07/27/17 10:00 11:00 11:29 11:50 Pulse 95 85 Resp 20 19 B/P (MAP) 128/64 (85) 119/65 (83) Pulse Ox 92 94 93 O2 Delivery Nasal Cannula Nasal Cannula Nasal Cannula Nasal Cannula O2 Flow Rate 10.0 10.0 10.0 10.0 07/27/17 07/27/17 07/27/17 07/27/17 14:00 15:12 15:19 15:36 Pulse 74 77 Resp 20 18 B/P (MAP) 119/60 (79) 113/55 (74) Pulse Ox 91 93 94 O2 Delivery Nasal Cannula Nasal Cannula Nasal Cannula Nasal Cannula O2 Flow Rate 10.0 10.0 10.0 10.0 07/27/17 07/27/17 07/27/17 07/27/17 16:00 17:00 17:02 17:30 Temp 98.7 98.7 Pulse 81 80 Resp 20 22 B/P (MAP) 123/56 (78) 108/60 (76) Pulse Ox 92 94 91 91 O2 Delivery Nasal Cannula Nasal Cannula Nasal Cannula Nasal Cannula O2 Flow Rate 10.0 10.0 10.0 10.0 07/27/17 07/27/17 07/27/17 07/27/17 18:26 19:00 19:59 20:01 Temp 98.4 98.4 Pulse 73 77 80 Resp 22 20 20 B/P (MAP) 101/57 (72) 103/57 (72) 111/62 (78) Pulse Ox 91 91 91 O2 Delivery Nasal Cannula Nasal Cannula Nasal Cannula Nasal Cannula O2 Flow Rate 10.0 10.0 10.0 7.0 Intake and Output 07/27/17 07/27/17 07/28/17 15:00 23:00 07:00 Intake Total 750 ml 1850 ml Output Total 730 ml 50 ml Balance 20 ml 1800 ml KIM ROA MD Jul 27, 2017 20:09
[2017-07-27] MEDS: ATORVASTATIN CALCIUM 10 MG TABLET. PO SCH (21:35)
[2017-07-28] VITALS (20 sets, daily range): BP systolic 103–164; BP diastolic 51–79
[2017-07-28] MEDS: VANCOMYCIN PER PHARMACY MC PRN (00:18)
[2017-07-28] MEDS: MORPHINE SULFATE 4 MG/ML DISP.SYRIN. IV PRN (03:40)
[2017-07-28] MEDS: MEROPENEM 1 GM in IV NORMAL SALINE 100ML 100 ML IV SCH ×3 (05:02→21:53)
[2017-07-28 05:59] LABS: BASO % 0 % (0-3); EOS % 0 % (0-3); HEMATOCRIT 29.2 % (39.0-53.0); HEMOGLOBIN 9.9 g/dL (13.0-17.5); LYMPH # 0.6 x10^3/uL (1.0-4.8); LYMPH % 5 % (24-48); MEAN CORPUSCULAR HEMOGLOBIN 28 pg (25-35); MEAN CORPUSCULAR HGB CONC 34 g/dL (31-37); MEAN CORPUSCULAR VOLUME 83 fL (79-100); MONO % 12 % (0-9); NEUT % 83 % (31-73); PLATELET COUNT 200 x10^3/uL (140-400); RED BLOOD COUNT 3.51 x10^6/uL (4.30-5.70); RED CELL DISTRIBUTION WIDTH 14.1 % (11.5-14.5); WHITE BLOOD COUNT 11.4 x10^3/uL (4.0-11.0)
[2017-07-28 06:15] LABS: CALCIUM 8.4 mg/dL (8.5-10.1); CREATININE 1.3 mg/dL (0.7-1.3); GFR 54.6; POTASSIUM 3.9 mmol/L (3.5-5.1)
--- NOTE | 2017-07-28 07:31 | PDOC ---
Infectious Disease Note Subjective Subjective Doing ok. denies increased weakness Better with ortiz Supplemental O2 ROS ROS GEN: Denies fevers, HEENT: Denies blurred vision, sore throat CV: Denies chest pain RESP: Denies shortness of air, cough GI: Denies n/v/d NEURO: Denies confusion, dizziness MSK: Denies weakness, joint pain/swelling Vital Sign Vital Signs Vital Signs Date Time Temp Pulse Resp B/P (MAP) Pulse Ox O2 Delivery O2 Flow Rate FiO2 07/28/17 06:18 96 BiPAP/CPAP 07/28/17 06:00 99.9 82 20 122/71 (88) 99.9 07/27/17 21:36 7.0 Physical Exam PHYSICAL EXAM GENERAL: NAD, Alert HEENT: PERRL, On Bipap NECK: Supple, no JVD, no LN LUNGS: Clear HEART: S1S2, no gallop, no murmur ABD: Soft, NT, obese,, no rebound Ortiz EXT: No edema, no cyanosis 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 No increased weakness SKIN: No rash IV: ok Labs Lab Laboratory Tests Test 07/27/17 07:39 07/27/17 11:53 07/27/17 13:41 07/27/17 16:55 Glucose (Fingerstick) 135 mg/dL (70-99) 177 mg/dL (70-99) 173 mg/dL (70-99) Lactic Acid Level 1.9 mmol/L (0.4-2.0) Phosphorus Level 3.8 mg/dL (2.6-4.7) Creatine Kinase 1159 U/L (39-308) Test 07/27/17 21:30 07/28/17 04:10 Vancomycin Level Trough 23.4 mcg/mL (10.0-20.0) Vancomycin Last Dose Date 07/27/17 Vancomycin Last Dose Time 1000 White Blood Count 11.4 x10^3/uL (4.0-11.0) Red Blood Count 3.51 x10^6/uL (4.30-5.70) Hemoglobin 9.9 g/dL (13.0-17.5) Hematocrit 29.2 % (39.0-53.0) Mean Corpuscular Volume 83 fL (79-100) Mean Corpuscular Hemoglobin 28 pg (25-35) Mean Corpuscular Hemoglobin Concent 34 g/dL (31-37) Red Cell Distribution Width 14.1 % (11.5-14.5) Platelet Count 200 x10^3/uL (140-400) Neutrophils (%) (Auto) 83 % (31-73) Lymphocytes (%) (Auto) 5 % (24-48) Monocytes (%) (Auto) 12 % (0-9) Eosinophils (%) (Auto) 0 % (0-3) Basophils (%) (Auto) 0 % (0-3) Neutrophils # (Auto) 9.4 x10^3uL (1.8-7.7) Lymphocytes # (Auto) 0.6 x10^3/uL (1.0-4.8) Monocytes # (Auto) 1.3 x10^3/uL (0.0-1.1) Eosinophils # (Auto) 0.0 x10^3/uL (0.0-0.7) Basophils # (Auto) 0.0 x10^3/uL (0.0-0.2) Sodium Level 128 mmol/L (136-145) Potassium Level 3.9 mmol/L (3.5-5.1) Chloride Level 93 mmol/L (98-107) Carbon Dioxide Level 24 mmol/L (21-32) Anion Gap 11 (6-14) Blood Urea Nitrogen 29 mg/dL (8-26) Creatinine 1.3 mg/dL (0.7-1.3) Estimated GFR (Cockcroft-Gault) 54.6 Glucose Level 132 mg/dL (70-99) Calcium Level 8.4 mg/dL (8.5-10.1) Objective Assessment Staph aureus bacteremia, POA, 07/25 Fever ? infection vs cardiac event. Leukocytosis, trending down Urinary retention - ortiz placed 07/27 Elevated Troponin/CK- NSTEMI Back pain and h/o MSSA infection PCN allergy - tolerated Cefazolin Hyponatremia Plan Plan of Care Await staph aureus ID Added Troponin this am with sweats and fever - d/w Maria Del Carmen ESPINOSA today Continue Vanc and Meropenem MRI Lumbar spine results pending - await NS followup Monitor renal function, WBC and temp D/w JANEE HSIEH MD Jul 28, 2017 07:31
--- NOTE | 2017-07-28 07:33 | RAD ---
Portable chest, 07/28/2017: History: Congestive heart failure Comparison is made to a study from 07/27/2017. The heart size is unchanged. There are mild ongoing bilateral parahilar infiltrates with poor definition of the underlying pulmonary vascularity. Similar findings were present on yesterday's study. No significant pleural fluid is seen. No new abnormality is detected. IMPRESSION: Mild unchanged parahilar infiltrates most compatible with pulmonary edema.
[2017-07-28] MEDS: INSULIN ASPART 300 UNITS/3 ML INSULN.PEN SQ SCH ×3 (08:00→17:00)
[2017-07-28] MEDS: IPRATRPIUM/ALBUTEROL 0.5/2.5MG 3 ML NEBU. NEB SCH ×4 (08:02→21:17)
[2017-07-28 08:10] LABS: HCO3 ABG 20 mmol/L (21-28); PCO2 ABG 30 mmHg (35-46); PH ABG 7.45 (7.35-7.45); PO2 ABG 99 mmHg (65-108); SAT O2 ABG 97 % (92-99)
[2017-07-28] MEDS: CITALOPRAM 20 MG TABLET. PO SCH ×2 (08:10→21:53)
[2017-07-28] MEDS: GABAPENTIN 100 MG CAPSULE. PO SCH ×3 (08:11→21:52)
[2017-07-28] MEDS: OMEGA-3 FATTY ACIDS/FISH OIL 1,000 MG CAPSULE. PO SCH ×2 (08:11→21:52)
[2017-07-28] MEDS: DOCUSATE SODIUM 100 MG CAPSULE. PO SCH ×2 (08:11→21:52)
[2017-07-28] MEDS: TAMSULOSIN 0.4 MG CAP.ER.24H. PO SCH (08:11)
[2017-07-28] MEDS: POTASSIUM CHLORIDE 20 MEQ TABLET.ER. PO SCH (08:11)
[2017-07-28] MEDS: MULTIVITAMIN with MINERAL TABLET. PO SCH (08:11)
[2017-07-28] MEDS: GLIMEPIRIDE 2 MG TABLET. PO SCH (08:11)
[2017-07-28] MEDS: FLUTICASONE 50MCG/NASAL SPRAY 16GM BOTTLE. NS SCH (08:12)
[2017-07-28 08:13] LABS: FIO2 ABG 60
[2017-07-28] MEDS: LOSARTAN POTASSIUM 50 MG TABLET. PO SCH (08:18)
[2017-07-28] MEDS: METOPROLOL TART IMMED RELEASE 50 MG TABLET. PO SCH ×2 (08:19→21:53)
[2017-07-28] MEDS: DICLOFENAC SODIUM 25 MG TABLET.DR PO SCH (09:04)
--- NOTE | 2017-07-28 09:04 | PDOC ---
PULMONARY PROGRESS NOTES Subjective PT OFF BIPAP NO RESP DISTRESS Vitals Vital Signs Date Time Temp Pulse Resp B/P (MAP) Pulse Ox O2 Delivery O2 Flow Rate FiO2 07/28/17 08:00 97.9 69 22 113/61 (78) 90 Nasal Cannula 6.0 97.9 ROS: No Nausea, No Chest Pain, No Abdominal Pain, No Increase Cough General: Alert, No acute distress Lungs: Clear Cardiovascular: S1, S2 Abdomen: Soft Neuro Exam: Alert Extremities: No Edema Skin: Warm Labs Laboratory Tests Test 07/26/17 09:53 07/26/17 11:55 07/26/17 12:21 07/26/17 13:15 Heparin Anti-Xa Act, Unfractionated 0.55 IU/mL (0.30-0.70) Troponin I Quantitative 15.867 ng/mL (0.000-0.055) Glucose (Fingerstick) 172 mg/dL (70-99) O2 Saturation 93 % (92-99) Arterial Blood pH 7.47 (7.35-7.45) Arterial Blood pCO2 at Patient Temp 31 mmHg (35-46) Arterial Blood pO2 at Patient Temp 65 mmHg (65-108) Arterial Blood HCO3 22 mmol/L (21-28) Arterial Blood Base Excess -1 mmol/L (-3-3) FiO2 40 White Blood Count 16.1 x10^3/uL (4.0-11.0) Red Blood Count 3.85 x10^6/uL (4.30-5.70) Hemoglobin 10.7 g/dL (13.0-17.5) Hematocrit 31.8 % (39.0-53.0) Mean Corpuscular Volume 83 fL (79-100) Mean Corpuscular Hemoglobin 28 pg (25-35) Mean Corpuscular Hemoglobin Concent 34 g/dL (31-37) Red Cell Distribution Width 14.1 % (11.5-14.5) Platelet Count 210 x10^3/uL (140-400) Neutrophils (%) (Auto) 86 % (31-73) Lymphocytes (%) (Auto) 6 % (24-48) Monocytes (%) (Auto) 8 % (0-9) Eosinophils (%) (Auto) 0 % (0-3) Basophils (%) (Auto) 0 % (0-3) Neutrophils # (Auto) 13.8 x10^3uL (1.8-7.7) Lymphocytes # (Auto) 0.9 x10^3/uL (1.0-4.8) Monocytes # (Auto) 1.4 x10^3/uL (0.0-1.1) Eosinophils # (Auto) 0.0 x10^3/uL (0.0-0.7) Basophils # (Auto) 0.0 x10^3/uL (0.0-0.2) Segmented Neutrophils % 88 % (35-66) Band Neutrophils % 3 % (0-9) Lymphocytes % 3 % (24-48) Atypical Lymphocytes % (Manual) 2 % (0-0) Monocytes % 4 % (0-10) Platelet Estimate Adequate (ADEQUATE) Sodium Level 128 mmol/L (136-145) Potassium Level 3.2 mmol/L (3.5-5.1) Chloride Level 94 mmol/L (98-107) Carbon Dioxide Level 24 mmol/L (21-32) Anion Gap 10 (6-14) Blood Urea Nitrogen 19 mg/dL (8-26) Creatinine 1.1 mg/dL (0.7-1.3) Estimated GFR (Cockcroft-Gault) 66.2 BUN/Creatinine Ratio 17 (6-20) Glucose Level 166 mg/dL (70-99) Calcium Level 8.1 mg/dL (8.5-10.1) Total Bilirubin 0.5 mg/dL (0.2-1.0) Aspartate Amino Transf (AST/SGOT) 113 U/L (15-37) Alanine Aminotransferase (ALT/SGPT) 46 U/L (16-63) Alkaline Phosphatase 71 U/L (46-116) Total Protein 6.8 g/dL (6.4-8.2) Albumin 2.7 g/dL (3.4-5.0) Albumin/Globulin Ratio 0.7 (1.0-1.7) Test 07/26/17 17:00 07/26/17 18:30 07/27/17 05:40 07/27/17 07:39 Glucose (Fingerstick) 136 mg/dL (70-99) 135 mg/dL (70-99) Heparin Anti-Xa Act, Unfractionated 0.13 IU/mL (0.30-0.70) White Blood Count 12.2 x10^3/uL (4.0-11.0) Red Blood Count 3.38 x10^6/uL (4.30-5.70) Hemoglobin 9.7 g/dL (13.0-17.5) Hematocrit 27.6 % (39.0-53.0) Mean Corpuscular Volume 82 fL (79-100) Mean Corpuscular Hemoglobin 29 pg (25-35) Mean Corpuscular Hemoglobin Concent 35 g/dL (31-37) Red Cell Distribution Width 13.9 % (11.5-14.5) Platelet Count 176 x10^3/uL (140-400) Sodium Level 129 mmol/L (136-145) Potassium Level 3.5 mmol/L (3.5-5.1) Chloride Level 94 mmol/L (98-107) Carbon Dioxide Level 24 mmol/L (21-32) Anion Gap 11 (6-14) Blood Urea Nitrogen 25 mg/dL (8-26) Creatinine 1.4 mg/dL (0.7-1.3) Estimated GFR (Cockcroft-Gault) 50.1 Glucose Level 130 mg/dL (70-99) Calcium Level 8.1 mg/dL (8.5-10.1) Creatine Kinase 1386 U/L (39-308) Creatine Kinase MB (Mass) 9.5 ng/mL (0.0-3.6) Creatine Kinase MB Relative Index 0.7 % (0-4) Troponin I Quantitative 9.233 ng/mL (0.000-0.055) Triglycerides Level 107 mg/dL (0-150) Cholesterol Level 96 mg/dL (0-200) LDL Cholesterol, Calculated 53 mg/dL (0-100) VLDL Cholesterol, Calculated 21 mg/dL (0-40) Non-HDL Cholesterol Calculated 74 mg/dL (0-129) HDL Cholesterol 22 mg/dL (40-60) Cholesterol/HDL Ratio 4.4 Test 07/27/17 11:53 07/27/17 13:41 07/27/17 16:55 07/27/17 21:30 Glucose (Fingerstick) 177 mg/dL (70-99) 173 mg/dL (70-99) Lactic Acid Level 1.9 mmol/L (0.4-2.0) Phosphorus Level 3.8 mg/dL (2.6-4.7) Creatine Kinase 1159 U/L (39-308) Vancomycin Level Trough 23.4 mcg/mL (10.0-20.0) Vancomycin Last Dose Date 07/27/17 Vancomycin Last Dose Time 1000 Test 07/28/17 04:10 07/28/17 04:17 07/28/17 07:36 07/28/17 08:13 White Blood Count 11.4 x10^3/uL (4.0-11.0) Red Blood Count 3.51 x10^6/uL (4.30-5.70) Hemoglobin 9.9 g/dL (13.0-17.5) Hematocrit 29.2 % (39.0-53.0) Mean Corpuscular Volume 83 fL (79-100) Mean Corpuscular Hemoglobin 28 pg (25-35) Mean Corpuscular Hemoglobin Concent 34 g/dL (31-37) Red Cell Distribution Width 14.1 % (11.5-14.5) Platelet Count 200 x10^3/uL (140-400) Neutrophils (%) (Auto) 83 % (31-73) Lymphocytes (%) (Auto) 5 % (24-48) Monocytes (%) (Auto) 12 % (0-9) Eosinophils (%) (Auto) 0 % (0-3) Basophils (%) (Auto) 0 % (0-3) Neutrophils # (Auto) 9.4 x10^3uL (1.8-7.7) Lymphocytes # (Auto) 0.6 x10^3/uL (1.0-4.8) Monocytes # (Auto) 1.3 x10^3/uL (0.0-1.1) Eosinophils # (Auto) 0.0 x10^3/uL (0.0-0.7) Basophils # (Auto) 0.0 x10^3/uL (0.0-0.2) Sodium Level 128 mmol/L (136-145) Potassium Level 3.9 mmol/L (3.5-5.1) Chloride Level 93 mmol/L (98-107) Carbon Dioxide Level 24 mmol/L (21-32) Anion Gap 11 (6-14) Blood Urea Nitrogen 29 mg/dL (8-26) Creatinine 1.3 mg/dL (0.7-1.3) Estimated GFR (Cockcroft-Gault) 54.6 Glucose Level 132 mg/dL (70-99) Calcium Level 8.4 mg/dL (8.5-10.1) Troponin I Quantitative 5.045 ng/mL (0.000-0.055) O2 Saturation 97 % (92-99) Arterial Blood pH 7.45 (7.35-7.45) Arterial Blood pCO2 at Patient Temp 30 mmHg (35-46) Arterial Blood pO2 at Patient Temp 99 mmHg (65-108) Arterial Blood HCO3 20 mmol/L (21-28) Arterial Blood Base Excess -3 mmol/L (-3-3) FiO2 60 Glucose (Fingerstick) 131 mg/dL (70-99) Laboratory Tests Test 07/27/17 11:53 07/27/17 13:41 07/27/17 16:55 07/27/17 21:30 Glucose (Fingerstick) 177 mg/dL (70-99) 173 mg/dL (70-99) Lactic Acid Level 1.9 mmol/L (0.4-2.0) Phosphorus Level 3.8 mg/dL (2.6-4.7) Creatine Kinase 1159 U/L (39-308) Vancomycin Level Trough 23.4 mcg/mL (10.0-20.0) Vancomycin Last Dose Date 07/27/17 Vancomycin Last Dose Time 1000 Test 07/28/17 04:10 07/28/17 04:17 07/28/17 07:36 07/28/17 08:13 White Blood Count 11.4 x10^3/uL (4.0-11.0) Red Blood Count 3.51 x10^6/uL (4.30-5.70) Hemoglobin 9.9 g/dL (13.0-17.5) Hematocrit 29.2 % (39.0-53.0) Mean Corpuscular Volume 83 fL (79-100) Mean Corpuscular Hemoglobin 28 pg (25-35) Mean Corpuscular Hemoglobin Concent 34 g/dL (31-37) Red Cell Distribution Width 14.1 % (11.5-14.5) Platelet Count 200 x10^3/uL (140-400) Neutrophils (%) (Auto) 83 % (31-73) Lymphocytes (%) (Auto) 5 % (24-48) Monocytes (%) (Auto) 12 % (0-9) Eosinophils (%) (Auto) 0 % (0-3) Basophils (%) (Auto) 0 % (0-3) Neutrophils # (Auto) 9.4 x10^3uL (1.8-7.7) Lymphocytes # (Auto) 0.6 x10^3/uL (1.0-4.8) Monocytes # (Auto) 1.3 x10^3/uL (0.0-1.1) Eosinophils # (Auto) 0.0 x10^3/uL (0.0-0.7) Basophils # (Auto) 0.0 x10^3/uL (0.0-0.2) Sodium Level 128 mmol/L (136-145) Potassium Level 3.9 mmol/L (3.5-5.1) Chloride Level 93 mmol/L (98-107) Carbon Dioxide Level 24 mmol/L (21-32) Anion Gap 11 (6-14) Blood Urea Nitrogen 29 mg/dL (8-26) Creatinine 1.3 mg/dL (0.7-1.3) Estimated GFR (Cockcroft-Gault) 54.6 Glucose Level 132 mg/dL (70-99) Calcium Level 8.4 mg/dL (8.5-10.1) Troponin I Quantitative 5.045 ng/mL (0.000-0.055) O2 Saturation 97 % (92-99) Arterial Blood pH 7.45 (7.35-7.45) Arterial Blood pCO2 at Patient Temp 30 mmHg (35-46) Arterial Blood pO2 at Patient Temp 99 mmHg (65-108) Arterial Blood HCO3 20 mmol/L (21-28) Arterial Blood Base Excess -3 mmol/L (-3-3) FiO2 60 Glucose (Fingerstick) 131 mg/dL (70-99) Medications Active Scripts Medications Dose Route/Sig Max Daily Dose Days Date Category Tamsulosin Hcl 0.4 Mg Cap.er.24h 0.4 Mg PO DAILY 03/31/17 Reported Metformin Hcl 500 Mg Tablet 500 Mg PO DAILYBFRSUP 03/31/17 Reported Colace (Docusate Sodium) 100 Mg Capsule 100 Mg PO BID 60 03/08/17 Rx Methocarbamol 750 Mg Tablet 750 Mg PO TID 60 03/08/17 Rx Hydrocodone-Apap 7.5-325 (Hydrocodone Bit/Acetaminophen) 1 Each Tablet 1 Tab PO PRN Q6HRS PRN 60 03/08/17 Rx Gabapentin 100 Mg Capsule 100 Mg PO TID 01/27/17 Reported Lovastatin 20 Mg Tablet 1 Tab PO DAILY 01/27/17 Reported Lswvpyriau-Yenryeetzxb-Tjf Tab (Gluc/Jonah-Msm#2/C/D3/Vidal/Born) 1 Each Tablet 1 Each PO BID 07/17/15 Reported Glimepiride 1 Mg Tablet 0.5 Tab PO DAILY 07/17/15 Reported Losartan Potassium 100 Mg Tablet 100 Mg PO DAILY 01/10/14 Reported Diclofenac Sodium 75 Mg Tablet.dr 75 Mg PO BID 01/10/14 Reported Nitrostat (Nitroglycerin) 0.4 Mg Tab.subl 0.4 Mg SL PRN 01/10/14 Reported Viagra (Sildenafil Citrate) 100 Mg Tablet 100 Mg PO PRN 01/10/14 Reported Potassium Chloride 10 Meq Tablet.er 10 Meq PO DAILY 01/10/14 Reported Metformin Hcl 1,000 Mg Tablet 1,000 Mg PO DAILY08 01/10/14 Reported Hydrochlorothiazide Tablet (Hydrochlorothiazide) 25 Mg Tablet 25 Mg PO DAILY 01/10/14 Reported Metoprolol Tartrate 100 Mg Tablet 50 Mg PO BID 01/10/14 Reported Flovent 50MCG Diskus (Fluticasone Propionate) 50 Mcg Disk.w.dev 50 Mcg IH DAILY 01/10/14 Reported Citalopram Hbr (Citalopram Hydrobromide) 20 Mg Tablet 20 Mg PO BID 01/10/14 Reported Nifedipine Er (Nifedipine) 90 Mg Tab.er.24 90 Mg PO DAILY 01/10/14 Reported Multivitamins (Multivitamin) 1 Each Tablet 1 Each PO DAILY 01/10/14 Reported Fish Oil 1,200 Mg Fish Oil (Fish Oil/Dha/Epa) 1 Each Capsule 1 Each PO BID 01/10/14 Reported Impression . 1. Acute hypoxic respiratory failure secondary ACUTE CHF 2. Acute non-ST myocardial infarction with markedly elevated troponin levels. 3. Acute encephalopathy METABOLIC/TOXIC? 4. Increased CPK secondary to rhabdomyolysis. 5. Syncope secondary to myocardial infarction. 6. No significant history of tobacco use. 7. Leukocytosis. The patient had recent back surgery and had staph infection. now with Staph bacteremia 8. No evidence of PE by VQ Plan . PRN BIPAP PT HAS HAD A SLEEP STUDY IN PAST NO ESPERANZA DIURESE ANITBX PER ID DR OLIVARES INPUT NOTED KELSEY GANDHI MD Jul 28, 2017 09:04
--- NOTE | 2017-07-28 09:15 | RAD ---
MRI lumbar spine with and without contrast July 27, 2017 at 10:06 AM INDICATION: History of discectomy with bilateral leg weakness. COMPARISON: MRI lumbar spine February 05, 2017 TECHNIQUE: Multiplanar, multisequence MR imaging of the lumbar spine was performed before and after the administration of intravenous contrast. 9 mL Gadavist was administered intravenously. FINDINGS: There is minimal retrolisthesis of L3 on L4. Vertebral body heights are maintained. No evidence for acute fracture. There is a osseous hemangioma involving the T12 and L2 vertebral body. Otherwise, marrow signal intensity is normal in all sequences. There is minimal disc desiccation at L4-5 and L5-S1. Visualized portions of the retroperitoneum are within normal limits. Abdominal aorta is normal in course and caliber. Postoperative changes are identified at the L4 and L5 vertebral levels from prior microdiscectomy. L2-L3: Disc is normal in configuration. No significant facet arthropathy. No neural foraminal or spinal canal stenosis. L3-L4: There is a disc bulge. Moderate right and mild left facet arthropathy. Moderate right and mild left neural foraminal stenosis. Mild spinal canal stenosis. L4-L5: There is a disc bulge. In the right ventral epidural space, there is a T2 hyperintense, T1 hypointense nonenhancing collection measuring 8 x 10 x 21 mm (AP by transverse by craniocaudal). Right hemilaminectomy changes are identified at this level. There is ligamentum flavum in folding. There is moderate to advanced facet arthropathy. There is severe spinal canal stenosis. Additionally, there is right lateral recess stenosis. L5-S1: There is minimal disc bulge with left central disc protrusion. Moderate right and mild left facet arthropathy. Moderate bilateral neural foraminal stenosis. IMPRESSION: 1. Postoperative changes from microdiscectomy are identified at L4-L5. There is a 8 x 10 x 21 mm collection in the anterior right epidural space without associated enhancement. Findings may represent recurrent right central disc extrusion versus cystic degeneration of postoperative hematoma. Lack of enhancement makes granulation tissue less likely consideration. There is associated right lateral recess stenosis and severe spinal canal stenosis. 2. Minimal retrolisthesis of L3 on L4, stable. 3. Left central disc protrusion at L5-S1. Electronically signed by: Pamela Carmona MD (07/28/2017 9:12 AM) [id number]
--- NOTE | 2017-07-28 10:02 | PDOC ---
PROGRESS NOTES Chief Complaint Chief Complaint Assessment/Plan 1. BAck pain, recent back sx/Sepsis, complicated back sx bec of sepsis, FEVERS, SIRS POA, likely infectious no organ dysfcn yet 1. TRansient amnesia, Oddities in behavior, forgetfullness - could be beginning dementia? He lacks [employer] infectious sxs like headache, no nuchal rigidity no fevers, no white ct. CT head neg, Check MRI for any acute pathology, Add esr. get neuro. 2. HTN, DM2, dyslipidemia - depression NOS - all chronic stable 3. Polypharmacy - on 22 home meds 4. Geriatric, fall risk 5. FEVERS, LEUKOCYTOSIS, SIRS < POA 6. Hip pain, shoulder pain, back pain 7. Recent multiple non injury falls 8. NSTEMI 9. HYpoxic respi failure with neg dopplers and low prob VQ History of Present Illness History of Present Illness Tmax 99.9 BC: BLOOD CULTURE PRL Final Final report BLD CULT RESULT 1 Final Staphylococcus aureus Recovered from aerobic and anaerobic bottles. Based on resistance to penicillin and susceptibility to oxacillin this isolate would be susceptible to: * Penicillinase-stable penicillins; such as: Cloxacillin Dicloxacillin Nafcillin * Beta-lactam/beta-lactamase inhibitor combinations; such as: Amoxicillin-clavulanic acid Ampicillin-sulbactam * Antistaphylococcal cephems; such as: Cefaclor Cefuroxime * Antistaphylococcal carbapenems; such as: Imipenem Meropenem ANTIMICROBIAL SUSCEPTIBILITY Final Comment S = Susceptible; I = Intermediate; R = Resistant P = Positive; N = Negative MICS are expressed in micrograms per mL Antibiotic RSLT#1 RSLT#2 RSLT#3 RSLT#4 Ciprofloxacin S Gentamicin S Levofloxacin S Linezolid S Moxifloxacin S MRI IMPRESSION: 1. Postoperative changes from microdiscectomy are identified at L4-L5. There is a 8 x 10 x 21 mm collection in the anterior right epidural space without associated enhancement. Findings may represent recurrent right central disc extrusion versus cystic degeneration of postoperative hematoma. Lack of enhancement makes granulation tissue less likely consideration. There is associated right lateral recess stenosis and severe spinal canal stenosis. 2. Minimal retrolisthesis of L3 on L4, stable. 3. Left central disc protrusion at L5-S1. TRop 5 no CP, just had echo They had qs as to what caused his altered MS PLAn; await echo results Await neurosx rounds OK to t.o ICU PT.OT COntrol pain - seems better today HEavy counselling as to possibly what caused his probs on arrival MAy consult physiatry for the back pain time dw 31 mins Vitals Vitals Vital Signs Date Time Temp Pulse Resp B/P (MAP) Pulse Ox O2 Delivery O2 Flow Rate FiO2 07/28/17 09:00 78 21 108/51 (70) 94 Nasal Cannula 2.0 07/28/17 08:00 97.9 97.9 Physical Exam General: Other Heart: Regular rate, Normal S1, Normal S2 Lungs: Clear Abdomen: Normal bowel sounds, Soft Extremities: No edema Skin: No rashes, No breakdown, No significant lesion Labs LABS Laboratory Tests Test 07/27/17 11:53 07/27/17 13:41 07/27/17 16:55 07/27/17 21:30 Glucose (Fingerstick) 177 mg/dL (70-99) 173 mg/dL (70-99) Lactic Acid Level 1.9 mmol/L (0.4-2.0) Phosphorus Level 3.8 mg/dL (2.6-4.7) Creatine Kinase 1159 U/L (39-308) Vancomycin Level Trough 23.4 mcg/mL (10.0-20.0) Vancomycin Last Dose Date 07/27/17 Vancomycin Last Dose Time 1000 Test 07/28/17 04:10 07/28/17 04:17 07/28/17 07:36 07/28/17 08:13 White Blood Count 11.4 x10^3/uL (4.0-11.0) Red Blood Count 3.51 x10^6/uL (4.30-5.70) Hemoglobin 9.9 g/dL (13.0-17.5) Hematocrit 29.2 % (39.0-53.0) Mean Corpuscular Volume 83 fL (79-100) Mean Corpuscular Hemoglobin 28 pg (25-35) Mean Corpuscular Hemoglobin Concent 34 g/dL (31-37) Red Cell Distribution Width 14.1 % (11.5-14.5) Platelet Count 200 x10^3/uL (140-400) Neutrophils (%) (Auto) 83 % (31-73) Lymphocytes (%) (Auto) 5 % (24-48) Monocytes (%) (Auto) 12 % (0-9) Eosinophils (%) (Auto) 0 % (0-3) Basophils (%) (Auto) 0 % (0-3) Neutrophils # (Auto) 9.4 x10^3uL (1.8-7.7) Lymphocytes # (Auto) 0.6 x10^3/uL (1.0-4.8) Monocytes # (Auto) 1.3 x10^3/uL (0.0-1.1) Eosinophils # (Auto) 0.0 x10^3/uL (0.0-0.7) Basophils # (Auto) 0.0 x10^3/uL (0.0-0.2) Sodium Level 128 mmol/L (136-145) Potassium Level 3.9 mmol/L (3.5-5.1) Chloride Level 93 mmol/L (98-107) Carbon Dioxide Level 24 mmol/L (21-32) Anion Gap 11 (6-14) Blood Urea Nitrogen 29 mg/dL (8-26) Creatinine 1.3 mg/dL (0.7-1.3) Estimated GFR (Cockcroft-Gault) 54.6 Glucose Level 132 mg/dL (70-99) Calcium Level 8.4 mg/dL (8.5-10.1) Troponin I Quantitative 5.045 ng/mL (0.000-0.055) O2 Saturation 97 % (92-99) Arterial Blood pH 7.45 (7.35-7.45) Arterial Blood pCO2 at Patient Temp 30 mmHg (35-46) Arterial Blood pO2 at Patient Temp 99 mmHg (65-108) Arterial Blood HCO3 20 mmol/L (21-28) Arterial Blood Base Excess -3 mmol/L (-3-3) FiO2 60 Glucose (Fingerstick) 131 mg/dL (70-99) Review of Systems Review of Systems back pain, all else is neg Comment Review of Relevant I have reviewed the following items kyler (where applicable) has been applied. Labs Laboratory Tests Test 07/26/17 11:55 07/26/17 12:21 07/26/17 13:15 07/26/17 17:00 Glucose (Fingerstick) 172 mg/dL (70-99) 136 mg/dL (70-99) O2 Saturation 93 % (92-99) Arterial Blood pH 7.47 (7.35-7.45) Arterial Blood pCO2 at Patient Temp 31 mmHg (35-46) Arterial Blood pO2 at Patient Temp 65 mmHg (65-108) Arterial Blood HCO3 22 mmol/L (21-28) Arterial Blood Base Excess -1 mmol/L (-3-3) FiO2 40 White Blood Count 16.1 x10^3/uL (4.0-11.0) Red Blood Count 3.85 x10^6/uL (4.30-5.70) Hemoglobin 10.7 g/dL (13.0-17.5) Hematocrit 31.8 % (39.0-53.0) Mean Corpuscular Volume 83 fL (79-100) Mean Corpuscular Hemoglobin 28 pg (25-35) Mean Corpuscular Hemoglobin Concent 34 g/dL (31-37) Red Cell Distribution Width 14.1 % (11.5-14.5) Platelet Count 210 x10^3/uL (140-400) Neutrophils (%) (Auto) 86 % (31-73) Lymphocytes (%) (Auto) 6 % (24-48) Monocytes (%) (Auto) 8 % (0-9) Eosinophils (%) (Auto) 0 % (0-3) Basophils (%) (Auto) 0 % (0-3) Neutrophils # (Auto) 13.8 x10^3uL (1.8-7.7) Lymphocytes # (Auto) 0.9 x10^3/uL (1.0-4.8) Monocytes # (Auto) 1.4 x10^3/uL (0.0-1.1) Eosinophils # (Auto) 0.0 x10^3/uL (0.0-0.7) Basophils # (Auto) 0.0 x10^3/uL (0.0-0.2) Segmented Neutrophils % 88 % (35-66) Band Neutrophils % 3 % (0-9) Lymphocytes % 3 % (24-48) Atypical Lymphocytes % (Manual) 2 % (0-0) Monocytes % 4 % (0-10) Platelet Estimate Adequate (ADEQUATE) Sodium Level 128 mmol/L (136-145) Potassium Level 3.2 mmol/L (3.5-5.1) Chloride Level 94 mmol/L (98-107) Carbon Dioxide Level 24 mmol/L (21-32) Anion Gap 10 (6-14) Blood Urea Nitrogen 19 mg/dL (8-26) Creatinine 1.1 mg/dL (0.7-1.3) Estimated GFR (Cockcroft-Gault) 66.2 BUN/Creatinine Ratio 17 (6-20) Glucose Level 166 mg/dL (70-99) Calcium Level 8.1 mg/dL (8.5-10.1) Total Bilirubin 0.5 mg/dL (0.2-1.0) Aspartate Amino Transf (AST/SGOT) 113 U/L (15-37) Alanine Aminotransferase (ALT/SGPT) 46 U/L (16-63) Alkaline Phosphatase 71 U/L (46-116) Total Protein 6.8 g/dL (6.4-8.2) Albumin 2.7 g/dL (3.4-5.0) Albumin/Globulin Ratio 0.7 (1.0-1.7) Test 07/26/17 18:30 07/27/17 05:40 07/27/17 07:39 07/27/17 11:53 Heparin Anti-Xa Act, Unfractionated 0.13 IU/mL (0.30-0.70) White Blood Count 12.2 x10^3/uL (4.0-11.0) Red Blood Count 3.38 x10^6/uL (4.30-5.70) Hemoglobin 9.7 g/dL (13.0-17.5) Hematocrit 27.6 % (39.0-53.0) Mean Corpuscular Volume 82 fL (79-100) Mean Corpuscular Hemoglobin 29 pg (25-35) Mean Corpuscular Hemoglobin Concent 35 g/dL (31-37) Red Cell Distribution Width 13.9 % (11.5-14.5) Platelet Count 176 x10^3/uL (140-400) Sodium Level 129 mmol/L (136-145) Potassium Level 3.5 mmol/L (3.5-5.1) Chloride Level 94 mmol/L (98-107) Carbon Dioxide Level 24 mmol/L (21-32) Anion Gap 11 (6-14) Blood Urea Nitrogen 25 mg/dL (8-26) Creatinine 1.4 mg/dL (0.7-1.3) Estimated GFR (Cockcroft-Gault) 50.1 Glucose Level 130 mg/dL (70-99) Calcium Level 8.1 mg/dL (8.5-10.1) Creatine Kinase 1386 U/L (39-308) Creatine Kinase MB (Mass) 9.5 ng/mL (0.0-3.6) Creatine Kinase MB Relative Index 0.7 % (0-4) Troponin I Quantitative 9.233 ng/mL (0.000-0.055) Triglycerides Level 107 mg/dL (0-150) Cholesterol Level 96 mg/dL (0-200) LDL Cholesterol, Calculated 53 mg/dL (0-100) VLDL Cholesterol, Calculated 21 mg/dL (0-40) Non-HDL Cholesterol Calculated 74 mg/dL (0-129) HDL Cholesterol 22 mg/dL (40-60) Cholesterol/HDL Ratio 4.4 Glucose (Fingerstick) 135 mg/dL (70-99) 177 mg/dL (70-99) Test 07/27/17 13:41 07/27/17 16:55 07/27/17 21:30 07/28/17 04:10 Lactic Acid Level 1.9 mmol/L (0.4-2.0) Phosphorus Level 3.8 mg/dL (2.6-4.7) Creatine Kinase 1159 U/L (39-308) Glucose (Fingerstick) 173 mg/dL (70-99) Vancomycin Level Trough 23.4 mcg/mL (10.0-20.0) Vancomycin Last Dose Date 07/27/17 Vancomycin Last Dose Time 1000 White Blood Count 11.4 x10^3/uL (4.0-11.0) Red Blood Count 3.51 x10^6/uL (4.30-5.70) Hemoglobin 9.9 g/dL (13.0-17.5) Hematocrit 29.2 % (39.0-53.0) Mean Corpuscular Volume 83 fL (79-100) Mean Corpuscular Hemoglobin 28 pg (25-35) Mean Corpuscular Hemoglobin Concent 34 g/dL (31-37) Red Cell Distribution Width 14.1 % (11.5-14.5) Platelet Count 200 x10^3/uL (140-400) Neutrophils (%) (Auto) 83 % (31-73) Lymphocytes (%) (Auto) 5 % (24-48) Monocytes (%) (Auto) 12 % (0-9) Eosinophils (%) (Auto) 0 % (0-3) Basophils (%) (Auto) 0 % (0-3) Neutrophils # (Auto) 9.4 x10^3uL (1.8-7.7) Lymphocytes # (Auto) 0.6 x10^3/uL (1.0-4.8) Monocytes # (Auto) 1.3 x10^3/uL (0.0-1.1) Eosinophils # (Auto) 0.0 x10^3/uL (0.0-0.7) Basophils # (Auto) 0.0 x10^3/uL (0.0-0.2) Sodium Level 128 mmol/L (136-145) Potassium Level 3.9 mmol/L (3.5-5.1) Chloride Level 93 mmol/L (98-107) Carbon Dioxide Level 24 mmol/L (21-32) Anion Gap 11 (6-14) Blood Urea Nitrogen 29 mg/dL (8-26) Creatinine 1.3 mg/dL (0.7-1.3) Estimated GFR (Cockcroft-Gault) 54.6 Glucose Level 132 mg/dL (70-99) Calcium Level 8.4 mg/dL (8.5-10.1) Test 07/28/17 04:17 07/28/17 07:36 07/28/17 08:13 Troponin I Quantitative 5.045 ng/mL (0.000-0.055) O2 Saturation 97 % (92-99) Arterial Blood pH 7.45 (7.35-7.45) Arterial Blood pCO2 at Patient Temp 30 mmHg (35-46) Arterial Blood pO2 at Patient Temp 99 mmHg (65-108) Arterial Blood HCO3 20 mmol/L (21-28) Arterial Blood Base Excess -3 mmol/L (-3-3) FiO2 60 Glucose (Fingerstick) 131 mg/dL (70-99) Laboratory Tests Test 07/27/17 11:53 07/27/17 13:41 07/27/17 16:55 07/27/17 21:30 Glucose (Fingerstick) 177 mg/dL (70-99) 173 mg/dL (70-99) Lactic Acid Level 1.9 mmol/L (0.4-2.0) Phosphorus Level 3.8 mg/dL (2.6-4.7) Creatine Kinase 1159 U/L (39-308) Vancomycin Level Trough 23.4 mcg/mL (10.0-20.0) Vancomycin Last Dose Date 07/27/17 Vancomycin Last Dose Time 1000 Test 07/28/17 04:10 07/28/17 04:17 07/28/17 07:36 07/28/17 08:13 White Blood Count 11.4 x10^3/uL (4.0-11.0) Red Blood Count 3.51 x10^6/uL (4.30-5.70) Hemoglobin 9.9 g/dL (13.0-17.5) Hematocrit 29.2 % (39.0-53.0) Mean Corpuscular Volume 83 fL (79-100) Mean Corpuscular Hemoglobin 28 pg (25-35) Mean Corpuscular Hemoglobin Concent 34 g/dL (31-37) Red Cell Distribution Width 14.1 % (11.5-14.5) Platelet Count 200 x10^3/uL (140-400) Neutrophils (%) (Auto) 83 % (31-73) Lymphocytes (%) (Auto) 5 % (24-48) Monocytes (%) (Auto) 12 % (0-9) Eosinophils (%) (Auto) 0 % (0-3) Basophils (%) (Auto) 0 % (0-3) Neutrophils # (Auto) 9.4 x10^3uL (1.8-7.7) Lymphocytes # (Auto) 0.6 x10^3/uL (1.0-4.8) Monocytes # (Auto) 1.3 x10^3/uL (0.0-1.1) Eosinophils # (Auto) 0.0 x10^3/uL (0.0-0.7) Basophils # (Auto) 0.0 x10^3/uL (0.0-0.2) Sodium Level 128 mmol/L (136-145) Potassium Level 3.9 mmol/L (3.5-5.1) Chloride Level 93 mmol/L (98-107) Carbon Dioxide Level 24 mmol/L (21-32) Anion Gap 11 (6-14) Blood Urea Nitrogen 29 mg/dL (8-26) Creatinine 1.3 mg/dL (0.7-1.3) Estimated GFR (Cockcroft-Gault) 54.6 Glucose Level 132 mg/dL (70-99) Calcium Level 8.4 mg/dL (8.5-10.1) Troponin I Quantitative 5.045 ng/mL (0.000-0.055) O2 Saturation 97 % (92-99) Arterial Blood pH 7.45 (7.35-7.45) Arterial Blood pCO2 at Patient Temp 30 mmHg (35-46) Arterial Blood pO2 at Patient Temp 99 mmHg (65-108) Arterial Blood HCO3 20 mmol/L (21-28) Arterial Blood Base Excess -3 mmol/L (-3-3) FiO2 60 Glucose (Fingerstick) 131 mg/dL (70-99) Microbiology 07/25/17 Blood Culture - Final, Complete 07/25/17 Blood Culture Result 1 (LISET) - Final, Complete 07/25/17 Antimicrobic Susceptibility - Final, Complete Medications Current Medications Citalopram Hydrobromide (CeleXA) 20 mg BID PO Last administered on 07/28/17 08 :10; Start 07/25/17 at 21:00 Docusate Sodium (Colace) 100 mg BID PO Last administered on 07/28/17 08:11; Start 07/25/17 at 21:00 Gabapentin (Neurontin) 100 mg TID PO Last administered on 07/28/17 08:11; Start 07/25/17 at 21:00 Hydrochlorothiazide (Hydrodiuril) 25 mg DAILY PO Last administered on 08:30; Start 07/26/17 at 09:00; Stop 07/27/17 at 14:23; Status DC Acetaminophen/ Hydrocodone Bitart (Lortab 7.5/325) 1 tab PRN Q6HRS PRN PO PAIN Last administered on 07/27/17 07:40; Start 07/25/17 at 19:45 Metformin HCl (Glucophage) 1,000 mg DAILY08 PO Last administered on 07/28/17 08:11; Start 07/26/17 at 08:00 Metformin HCl (Glucophage) 500 mg DAILYBFRSUP PO Last administered on 16:57; Start 07/26/17 at 17:00 Methocarbamol (Robaxin) 750 mg TID PO Last administered on 07/26/17 08:38; Start 07/25/17 at 21:00; Stop 07/26/17 at 18:44; Status DC Potassium Chloride (Klor-Con) 10 meq DAILYWBKFT PO Last administered on 08:33; Start 07/26/17 at 08:00; Stop 07/26/17 at 08:55; Status DC Tamsulosin HCl (Flomax) 0.4 mg DAILY PO Last administered on 07/28/17 08:11; Start 07/26/17 at 09:00 Diclofenac Sodium (Voltaren) 75 mg BID PO Last administered on 07/28/17 09:04 ; Start 07/25/17 at 21:00 Fish Oil (Fish Oil) 1,000 mg BID PO Last administered on 07/28/17 08:11; Start 07/25/17 at 21:00 Fluticasone Propionate (Flonase) 2 spray DAILY NS Last administered on 08:12; Start 07/26/17 at 09:00 Glimepiride (Amaryl) 0.5 mg DAILY PO Last administered on 07/28/17 08:11; Start 07/26/17 at 09:00 Non-Formulary Medication 1 each BID PO ; Start 07/25/17 at 21:00; Status UNV Losartan Potassium (Cozaar) 100 mg DAILY PO Last administered on 07/27/17 08: 29; Start 07/26/17 at 09:00 Atorvastatin Calcium (Lipitor) 5 mg QHS PO Last administered on 07/27/17 21:35 ; Start 07/25/17 at 21:00 Metoprolol Tartrate (Lopressor) 50 mg BID PO Last administered on 07/27/17 21: 35; Start 07/25/17 at 21:00 Multivitamins (Thera M Plus) 1 tab DAILY PO Last administered on 07/28/17 08: 11; Start 07/26/17 at 09:00 Nifedipine (Procardia Xl) 90 mg DAILY PO Last administered on 07/27/17 08:30; Start 07/26/17 at 09:00 Sodium Chloride 1,000 ml @ 1,000 mls/hr 1X ONCE IV Last administered on 21:56; Start 07/25/17 at 19:45; Stop 07/25/17 at 20:44; Status DC Potassium Chloride (Klor-Con) 40 meq 1X ONCE PO Last administered on 21:41; Start 07/25/17 at 19:45; Stop 07/25/17 at 19:48; Status DC Sodium Chloride 1,000 ml @ 100 mls/hr 1X ONCE IV Last administered on 21:53; Start 07/25/17 at 19:45; Stop 07/26/17 at 05:44; Status DC Insulin Aspart (NovoLOG) 0-7 UNITS TIDWMEALS SQ Last administered on 07/27/17 16:58; Start 07/26/17 at 08:00 Dextrose (Dextrose 50%-Water Syringe) 12.5 gm PRN Q15MIN PRN IV SEE COMMENTS; Start 07/25/17 at 20:00 Info (Do NOT chart on this placeholder) 0.5 each 1X ONCE MC ; Start 07/26/17 at 09:00; Stop 07/26/17 at 09:01; Status UNV Influenza Virus Vaccine Quadrival (Fluarix Quad [id number] Syringe) 0.5 ml ONCE ONCE VAX IM Last administered on 07/28/17 09:31; Start 07/26/17 at 09:00; Stop 07/26/17 at 09:01; Status DC Albuterol/ Ipratropium (Duoneb) 3 ml RTQID NEB Last administered on 07/28/17 08:02; Start 07/26/17 at 08:00 Albuterol Sulfate (Ventolin Neb Soln) 2.5 mg PRN Q2HRS PRN NEB SHORTNESS OF BREATH Last administered on 07/26/17 02:00; Start 07/26/17 at 01:30 Enoxaparin Sodium (Lovenox 100mg Syringe) 100 mg 1X ONCE SQ Last administered on 07/26/17 02:08; Start 07/26/17 at 02:00; Stop 07/26/17 at 02:04; Status DC Heparin Sodium/ Dextrose 500 ml @ 0 mls/hr CONT PRN IV SEE I/O RECORD Last administered on 07/26/17 03:42; Start 07/26/17 at 03:30; Stop 07/28/17 at 08:16 ; Status DC Heparin Sodium (Porcine) (Heparin Sodium) 2,450 unit PRN Q6HRS PRN IV FOR UFH LEVEL LESS THAN 0.2; Start 07/26/17 at 03:30; Stop 07/28/17 at 08:16; Status DC Info (Anti-Coagulation Monitoring By Pharmacy) 1 each PRN DAILY PRN MC SEE COMMENTS Last administered on 07/27/17 10:04; Start 07/26/17 at 03:30; Stop at 08:16; Status DC Vancomycin HCl (Vanco Per Pharmacy) 1 each PRN DAILY PRN MC SEE COMMENTS Last administered on 07/28/17 00:18; Start 07/26/17 at 08:15 Meropenem 1 gm/ Sodium Chloride 100 ml @ 200 mls/hr Q8HRS IV Last administered on 07/28/17 05:02; Start 07/26/17 at 08:30 Vancomycin HCl 2 gm/Sodium Chloride 500 ml @ 250 mls/hr 1X ONCE IV Last administered on 07/26/17 09:27; Start 07/26/17 at 08:30; Stop 07/26/17 at 10:29 ; Status DC Potassium Chloride (Klor-Con) 40 meq DAILYWBKFT PO Last administered on 08:11; Start 07/26/17 at 09:30 Vancomycin HCl 1.25 gm/Sodium Chloride 250 ml @ 167 mls/hr Q12H IV Last administered on 07/27/17 21:37; Start 07/26/17 at 22:00; Stop 07/28/17 at 01:00 ; Status DC Vancomycin HCl 1 each 1X ONCE MC Last administered on 07/27/17 21:30; Start 07/27/17 at 21:30; Stop 07/27/17 at 21:31; Status DC Furosemide (Lasix) 40 mg 1X ONCE IVP Last administered on 07/26/17 11:47; Start 07/26/17 at 11:30; Stop 07/26/17 at 11:31; Status DC Gadobutrol (Gadavist) 10 mmol 1X ONCE IV Last administered on 07/26/17 16:19 ; Start 07/26/17 at 16:15; Stop 07/26/17 at 16:16; Status DC Morphine Sulfate 3 mg PRN Q3HRS PRN IV PAIN Last administered on 07/28/17 03: 40; Start 07/27/17 at 08:30 Morphine Sulfate 4 mg PRN Q3HRS PRN IV PAIN; Start 07/27/17 at 08:30 Morphine Sulfate 5 mg PRN Q3HRS PRN IV PAIN; Start 07/27/17 at 08:45 Gadobutrol (Gadavist) 9 mmol 1X ONCE IV Last administered on 07/27/17 10:37; Start 07/27/17 at 10:15; Stop 07/27/17 at 10:16; Status DC Furosemide (Lasix) 40 mg 1X ONCE IVP Last administered on 07/27/17 14:12; Start 07/27/17 at 14:00; Stop 07/27/17 at 14:01; Status DC Vancomycin HCl 1.5 gm/Sodium Chloride 500 ml @ 250 mls/hr Q24H IV ; Start 07/28 at 22:00 Vancomycin HCl 1 each 1X ONCE MC ; Start 07/30/17 at 21:30; Stop 07/30/17 at 21 :31 Acetaminophen (Tylenol) 650 mg PRN Q6HRS PRN PO FEVER > 100.5'F; Start at 05:30 Active Scripts Active Colace (Docusate Sodium) 100 Mg Capsule 100 Mg PO BID 60 Days Methocarbamol 750 Mg Tablet 750 Mg PO TID 60 Days Hydrocodone-Apap 7.5-325 (Hydrocodone Bit/Acetaminophen) 1 Each Tablet 1 Tab PO PRN Q6HRS PRN 60 Days Reported Tamsulosin Hcl 0.4 Mg Cap.er.24h 0.4 Mg PO DAILY Metformin Hcl 500 Mg Tablet 500 Mg PO DAILYBFRSUP Gabapentin 100 Mg Capsule 100 Mg PO TID Lovastatin 20 Mg Tablet 1 Tab PO DAILY Ffslsohnka-Zyryawivxko-Skw Tab (Gluc/Jonah-Msm#2/C/D3/Vidal/Born) 1 Each Tablet 1 Each PO BID Glimepiride 1 Mg Tablet 0.5 Tab PO DAILY Losartan Potassium 100 Mg Tablet 100 Mg PO DAILY Diclofenac Sodium 75 Mg Tablet.dr 75 Mg PO BID Nitrostat (Nitroglycerin) 0.4 Mg Tab.subl 0.4 Mg SL PRN Viagra (Sildenafil Citrate) 100 Mg Tablet 100 Mg PO PRN Potassium Chloride 10 Meq Tablet.er 10 Meq PO DAILY Metformin Hcl 1,000 Mg Tablet 1,000 Mg PO DAILY08 Hydrochlorothiazide Tablet (Hydrochlorothiazide) 25 Mg Tablet 25 Mg PO DAILY Metoprolol Tartrate 100 Mg Tablet 50 Mg PO BID Flovent 50MCG Diskus (Fluticasone Propionate) 50 Mcg Disk.w.dev 50 Mcg IH DAILY Citalopram Hbr (Citalopram Hydrobromide) 20 Mg Tablet 20 Mg PO BID Nifedipine Er (Nifedipine) 90 Mg Tab.er.24 90 Mg PO DAILY Multivitamins (Multivitamin) 1 Each Tablet 1 Each PO DAILY Fish Oil 1,200 Mg Fish Oil (Fish Oil/Dha/Epa) 1 Each Capsule 1 Each PO BID Vitals/I & O Vital Sign - Last 24 Hours 07/27/17 07/27/17 07/27/17 07/27/17 10:00 11:00 11:29 11:50 Pulse 95 85 Resp 20 19 B/P (MAP) 128/64 (85) 119/65 (83) Pulse Ox 92 94 93 O2 Delivery Nasal Cannula Nasal Cannula Nasal Cannula Nasal Cannula O2 Flow Rate 10.0 10.0 10.0 10.0 07/27/17 07/27/17 07/27/17 07/27/17 14:00 15:12 15:19 15:36 Pulse 74 77 Resp 20 18 B/P (MAP) 119/60 (79) 113/55 (74) Pulse Ox 91 93 94 O2 Delivery Nasal Cannula Nasal Cannula Nasal Cannula Nasal Cannula O2 Flow Rate 10.0 10.0 10.0 10.0 07/27/17 07/27/17 07/27/17 07/27/17 16:00 17:00 17:02 17:30 Temp 98.7 98.7 Pulse 81 80 Resp 20 22 B/P (MAP) 123/56 (78) 108/60 (76) Pulse Ox 92 94 91 91 O2 Delivery Nasal Cannula Nasal Cannula Nasal Cannula O2 Flow Rate 10.0 10.0 10.0 10.0 07/27/17 07/27/17 07/27/17 07/27/17 18:26 19:00 19:59 20:00 Temp 98.4 98.4 Pulse 73 77 Resp 22 20 B/P (MAP) 101/57 (72) 103/57 (72) Pulse Ox 91 91 O2 Delivery Nasal Cannula Nasal Cannula Nasal Cannula O2 Flow Rate 10.0 10.0 10.0 10.0 07/27/17 07/27/17 07/27/17 07/27/17 20:01 20:32 21:00 21:35 Pulse 80 90 80 Resp 20 22 B/P (MAP) 111/62 (78) 119/66 (83) 111/62 Pulse Ox 91 90 90 O2 Delivery Nasal Cannula Nasal Cannula Nasal Cannula O2 Flow Rate 7.0 10.0 7.0 07/27/17 07/27/17 07/27/17 07/28/17 21:36 22:00 22:58 00:00 Pulse 88 78 Resp 20 20 20 B/P (MAP) 113/77 (89) 105/70 (82) Pulse Ox 75 75 O2 Delivery Nasal Cannula BiPAP/CPAP BiPAP/CPAP Bi-pap O2 Flow Rate 7.0 07/28/17 07/28/17 07/28/17 07/28/17 00:01 00:01 01:04 02:00 Temp 98.0 98.0 Pulse 78 80 72 Resp 20 20 20 B/P (MAP) 124/70 (88) 111/70 (84) 119/62 (81) Pulse Ox 100 99 99 97 O2 Delivery BiPAP/CPAP BiPAP/CPAP BiPAP/CPAP BiPAP/CPAP 07/28/17 07/28/17 07/28/17 07/28/17 02:12 03:00 03:40 04:00 Pulse 77 Resp 20 22 B/P (MAP) 103/60 (74) Pulse Ox 96 95 O2 Delivery BiPAP/CPAP BiPAP/CPAP BiPAP/CPAP Bi-pap 07/28/17 07/28/17 07/28/17 07/28/17 04:00 04:10 04:13 05:00 Temp 101.0 100.6 101.0 100.6 Pulse 72 68 Resp 20 22 20 B/P (MAP) 120/62 (81) 130/71 (90) Pulse Ox 95 96 95 O2 Delivery BiPAP/CPAP BiPAP/CPAP BiPAP/CPAP BiPAP/CPAP 07/28/17 07/28/17 07/28/17 07/28/17 06:00 06:18 07:00 07:53 Temp 99.9 99.9 Pulse 82 70 Resp 20 19 B/P (MAP) 122/71 (88) 122/64 (83) Pulse Ox 96 96 98 98 O2 Delivery BiPAP/CPAP BiPAP/CPAP BiPAP/CPAP BiPAP/CPAP 07/28/17 07/28/17 07/28/17 07/28/17 08:00 08:00 08:00 09:00 Temp 97.9 97.9 Pulse 69 78 Resp 22 21 B/P (MAP) 113/61 (78) 108/51 (70) Pulse Ox 90 94 O2 Delivery Bi-pap Nasal Cannula Nasal Cannula O2 Flow Rate 7.0 6.0 2.0 Intake and Output 07/28/17 07/28/17 07/29/17 15:00 23:00 07:00 Intake Total 100 ml Balance 100 ml MICHELLE OGLESBY MD Jul 28, 2017 10:02
--- NOTE | 2017-07-28 10:25 | PDOC ---
PROGRESS NOTES Assessment Chronic back pain, MRI lumbar spine shows spinal stenosis Memory loss, No evidence of acute stroke, memory loss is much better with treatment of hypoxia. Await labs Plan Await labs Follow-up with me in 6 weeks Outpatient pain management evaluation for back, await neurosurgery Subjective Memory is much better, thinks he is back to normal. He does have chronic back pain. Objective Vital Signs Date Time Temp Pulse Resp B/P (MAP) Pulse Ox O2 Delivery O2 Flow Rate FiO2 07/28/17 10:00 80 19 117/60 (79) 91 Nasal Cannula 2.0 07/28/17 08:00 97.9 97.9 Intake and Output 07/29/17 07:00 Intake Total 100 ml Balance 100 ml Intake Oral 100 ml PHYSICAL EXAM Alert. Oriented to time, place and person. PERRL. EOMI. CN: no focal findings. Muscle tone: normal. Muscle strength: 5/5 DTR: 1+ Plantar reflex: flexor Gait: not examined in bed. Sensory exam: no abnormal findings. No cerebellar signs elicited. Review of Relevant I have reviewed the following items kyler (where applicable) has been applied. Labs Laboratory Tests Test 07/26/17 11:55 07/26/17 12:21 07/26/17 13:15 07/26/17 17:00 Glucose (Fingerstick) 172 mg/dL (70-99) 136 mg/dL (70-99) O2 Saturation 93 % (92-99) Arterial Blood pH 7.47 (7.35-7.45) Arterial Blood pCO2 at Patient Temp 31 mmHg (35-46) Arterial Blood pO2 at Patient Temp 65 mmHg (65-108) Arterial Blood HCO3 22 mmol/L (21-28) Arterial Blood Base Excess -1 mmol/L (-3-3) FiO2 40 White Blood Count 16.1 x10^3/uL (4.0-11.0) Red Blood Count 3.85 x10^6/uL (4.30-5.70) Hemoglobin 10.7 g/dL (13.0-17.5) Hematocrit 31.8 % (39.0-53.0) Mean Corpuscular Volume 83 fL (79-100) Mean Corpuscular Hemoglobin 28 pg (25-35) Mean Corpuscular Hemoglobin Concent 34 g/dL (31-37) Red Cell Distribution Width 14.1 % (11.5-14.5) Platelet Count 210 x10^3/uL (140-400) Neutrophils (%) (Auto) 86 % (31-73) Lymphocytes (%) (Auto) 6 % (24-48) Monocytes (%) (Auto) 8 % (0-9) Eosinophils (%) (Auto) 0 % (0-3) Basophils (%) (Auto) 0 % (0-3) Neutrophils # (Auto) 13.8 x10^3uL (1.8-7.7) Lymphocytes # (Auto) 0.9 x10^3/uL (1.0-4.8) Monocytes # (Auto) 1.4 x10^3/uL (0.0-1.1) Eosinophils # (Auto) 0.0 x10^3/uL (0.0-0.7) Basophils # (Auto) 0.0 x10^3/uL (0.0-0.2) Segmented Neutrophils % 88 % (35-66) Band Neutrophils % 3 % (0-9) Lymphocytes % 3 % (24-48) Atypical Lymphocytes % (Manual) 2 % (0-0) Monocytes % 4 % (0-10) Platelet Estimate Adequate (ADEQUATE) Sodium Level 128 mmol/L (136-145) Potassium Level 3.2 mmol/L (3.5-5.1) Chloride Level 94 mmol/L (98-107) Carbon Dioxide Level 24 mmol/L (21-32) Anion Gap 10 (6-14) Blood Urea Nitrogen 19 mg/dL (8-26) Creatinine 1.1 mg/dL (0.7-1.3) Estimated GFR (Cockcroft-Gault) 66.2 BUN/Creatinine Ratio 17 (6-20) Glucose Level 166 mg/dL (70-99) Calcium Level 8.1 mg/dL (8.5-10.1) Total Bilirubin 0.5 mg/dL (0.2-1.0) Aspartate Amino Transf (AST/SGOT) 113 U/L (15-37) Alanine Aminotransferase (ALT/SGPT) 46 U/L (16-63) Alkaline Phosphatase 71 U/L (46-116) Total Protein 6.8 g/dL (6.4-8.2) Albumin 2.7 g/dL (3.4-5.0) Albumin/Globulin Ratio 0.7 (1.0-1.7) Test 07/26/17 18:30 07/27/17 05:40 07/27/17 07:39 07/27/17 11:53 Heparin Anti-Xa Act, Unfractionated 0.13 IU/mL (0.30-0.70) White Blood Count 12.2 x10^3/uL (4.0-11.0) Red Blood Count 3.38 x10^6/uL (4.30-5.70) Hemoglobin 9.7 g/dL (13.0-17.5) Hematocrit 27.6 % (39.0-53.0) Mean Corpuscular Volume 82 fL (79-100) Mean Corpuscular Hemoglobin 29 pg (25-35) Mean Corpuscular Hemoglobin Concent 35 g/dL (31-37) Red Cell Distribution Width 13.9 % (11.5-14.5) Platelet Count 176 x10^3/uL (140-400) Sodium Level 129 mmol/L (136-145) Potassium Level 3.5 mmol/L (3.5-5.1) Chloride Level 94 mmol/L (98-107) Carbon Dioxide Level 24 mmol/L (21-32) Anion Gap 11 (6-14) Blood Urea Nitrogen 25 mg/dL (8-26) Creatinine 1.4 mg/dL (0.7-1.3) Estimated GFR (Cockcroft-Gault) 50.1 Glucose Level 130 mg/dL (70-99) Calcium Level 8.1 mg/dL (8.5-10.1) Creatine Kinase 1386 U/L (39-308) Creatine Kinase MB (Mass) 9.5 ng/mL (0.0-3.6) Creatine Kinase MB Relative Index 0.7 % (0-4) Troponin I Quantitative 9.233 ng/mL (0.000-0.055) Triglycerides Level 107 mg/dL (0-150) Cholesterol Level 96 mg/dL (0-200) LDL Cholesterol, Calculated 53 mg/dL (0-100) VLDL Cholesterol, Calculated 21 mg/dL (0-40) Non-HDL Cholesterol Calculated 74 mg/dL (0-129) HDL Cholesterol 22 mg/dL (40-60) Cholesterol/HDL Ratio 4.4 Glucose (Fingerstick) 135 mg/dL (70-99) 177 mg/dL (70-99) Test 07/27/17 13:41 07/27/17 16:55 07/27/17 21:30 07/28/17 04:10 Lactic Acid Level 1.9 mmol/L (0.4-2.0) Phosphorus Level 3.8 mg/dL (2.6-4.7) Creatine Kinase 1159 U/L (39-308) Glucose (Fingerstick) 173 mg/dL (70-99) Vancomycin Level Trough 23.4 mcg/mL (10.0-20.0) Vancomycin Last Dose Date 07/27/17 Vancomycin Last Dose Time 1000 White Blood Count 11.4 x10^3/uL (4.0-11.0) Red Blood Count 3.51 x10^6/uL (4.30-5.70) Hemoglobin 9.9 g/dL (13.0-17.5) Hematocrit 29.2 % (39.0-53.0) Mean Corpuscular Volume 83 fL (79-100) Mean Corpuscular Hemoglobin 28 pg (25-35) Mean Corpuscular Hemoglobin Concent 34 g/dL (31-37) Red Cell Distribution Width 14.1 % (11.5-14.5) Platelet Count 200 x10^3/uL (140-400) Neutrophils (%) (Auto) 83 % (31-73) Lymphocytes (%) (Auto) 5 % (24-48) Monocytes (%) (Auto) 12 % (0-9) Eosinophils (%) (Auto) 0 % (0-3) Basophils (%) (Auto) 0 % (0-3) Neutrophils # (Auto) 9.4 x10^3uL (1.8-7.7) Lymphocytes # (Auto) 0.6 x10^3/uL (1.0-4.8) Monocytes # (Auto) 1.3 x10^3/uL (0.0-1.1) Eosinophils # (Auto) 0.0 x10^3/uL (0.0-0.7) Basophils # (Auto) 0.0 x10^3/uL (0.0-0.2) Sodium Level 128 mmol/L (136-145) Potassium Level 3.9 mmol/L (3.5-5.1) Chloride Level 93 mmol/L (98-107) Carbon Dioxide Level 24 mmol/L (21-32) Anion Gap 11 (6-14) Blood Urea Nitrogen 29 mg/dL (8-26) Creatinine 1.3 mg/dL (0.7-1.3) Estimated GFR (Cockcroft-Gault) 54.6 Glucose Level 132 mg/dL (70-99) Calcium Level 8.4 mg/dL (8.5-10.1) Test 07/28/17 04:17 07/28/17 07:36 07/28/17 08:13 Troponin I Quantitative 5.045 ng/mL (0.000-0.055) O2 Saturation 97 % (92-99) Arterial Blood pH 7.45 (7.35-7.45) Arterial Blood pCO2 at Patient Temp 30 mmHg (35-46) Arterial Blood pO2 at Patient Temp 99 mmHg (65-108) Arterial Blood HCO3 20 mmol/L (21-28) Arterial Blood Base Excess -3 mmol/L (-3-3) FiO2 60 Glucose (Fingerstick) 131 mg/dL (70-99) Laboratory Tests Test 07/27/17 11:53 07/27/17 13:41 07/27/17 16:55 07/27/17 21:30 Glucose (Fingerstick) 177 mg/dL (70-99) 173 mg/dL (70-99) Lactic Acid Level 1.9 mmol/L (0.4-2.0) Phosphorus Level 3.8 mg/dL (2.6-4.7) Creatine Kinase 1159 U/L (39-308) Vancomycin Level Trough 23.4 mcg/mL (10.0-20.0) Vancomycin Last Dose Date 07/27/17 Vancomycin Last Dose Time 1000 Test 07/28/17 04:10 07/28/17 04:17 07/28/17 07:36 07/28/17 08:13 White Blood Count 11.4 x10^3/uL (4.0-11.0) Red Blood Count 3.51 x10^6/uL (4.30-5.70) Hemoglobin 9.9 g/dL (13.0-17.5) Hematocrit 29.2 % (39.0-53.0) Mean Corpuscular Volume 83 fL (79-100) Mean Corpuscular Hemoglobin 28 pg (25-35) Mean Corpuscular Hemoglobin Concent 34 g/dL (31-37) Red Cell Distribution Width 14.1 % (11.5-14.5) Platelet Count 200 x10^3/uL (140-400) Neutrophils (%) (Auto) 83 % (31-73) Lymphocytes (%) (Auto) 5 % (24-48) Monocytes (%) (Auto) 12 % (0-9) Eosinophils (%) (Auto) 0 % (0-3) Basophils (%) (Auto) 0 % (0-3) Neutrophils # (Auto) 9.4 x10^3uL (1.8-7.7) Lymphocytes # (Auto) 0.6 x10^3/uL (1.0-4.8) Monocytes # (Auto) 1.3 x10^3/uL (0.0-1.1) Eosinophils # (Auto) 0.0 x10^3/uL (0.0-0.7) Basophils # (Auto) 0.0 x10^3/uL (0.0-0.2) Sodium Level 128 mmol/L (136-145) Potassium Level 3.9 mmol/L (3.5-5.1) Chloride Level 93 mmol/L (98-107) Carbon Dioxide Level 24 mmol/L (21-32) Anion Gap 11 (6-14) Blood Urea Nitrogen 29 mg/dL (8-26) Creatinine 1.3 mg/dL (0.7-1.3) Estimated GFR (Cockcroft-Gault) 54.6 Glucose Level 132 mg/dL (70-99) Calcium Level 8.4 mg/dL (8.5-10.1) Troponin I Quantitative 5.045 ng/mL (0.000-0.055) O2 Saturation 97 % (92-99) Arterial Blood pH 7.45 (7.35-7.45) Arterial Blood pCO2 at Patient Temp 30 mmHg (35-46) Arterial Blood pO2 at Patient Temp 99 mmHg (65-108) Arterial Blood HCO3 20 mmol/L (21-28) Arterial Blood Base Excess -3 mmol/L (-3-3) FiO2 60 Glucose (Fingerstick) 131 mg/dL (70-99) Microbiology 07/25/17 Blood Culture - Final, Complete 07/25/17 Blood Culture Result 1 (LISET) - Final, Complete 07/25/17 Antimicrobic Susceptibility - Final, Complete Medications Current Medications Citalopram Hydrobromide (CeleXA) 20 mg BID PO Last administered on 07/28/17 08 :10; Start 07/25/17 at 21:00 Docusate Sodium (Colace) 100 mg BID PO Last administered on 07/28/17 08:11; Start 07/25/17 at 21:00 Gabapentin (Neurontin) 100 mg TID PO Last administered on 07/28/17 08:11; Start 07/25/17 at 21:00 Hydrochlorothiazide (Hydrodiuril) 25 mg DAILY PO Last administered on 08:30; Start 07/26/17 at 09:00; Stop 07/27/17 at 14:23; Status DC Acetaminophen/ Hydrocodone Bitart (Lortab 7.5/325) 1 tab PRN Q6HRS PRN PO PAIN Last administered on 07/27/17 07:40; Start 07/25/17 at 19:45 Metformin HCl (Glucophage) 1,000 mg DAILY08 PO Last administered on 07/28/17 08:11; Start 07/26/17 at 08:00 Metformin HCl (Glucophage) 500 mg DAILYBFRSUP PO Last administered on 16:57; Start 07/26/17 at 17:00 Methocarbamol (Robaxin) 750 mg TID PO Last administered on 07/26/17 08:38; Start 07/25/17 at 21:00; Stop 07/26/17 at 18:44; Status DC Potassium Chloride (Klor-Con) 10 meq DAILYWBKFT PO Last administered on 08:33; Start 07/26/17 at 08:00; Stop 07/26/17 at 08:55; Status DC Tamsulosin HCl (Flomax) 0.4 mg DAILY PO Last administered on 07/28/17 08:11; Start 07/26/17 at 09:00 Diclofenac Sodium (Voltaren) 75 mg BID PO Last administered on 07/28/17 09:04 ; Start 07/25/17 at 21:00 Fish Oil (Fish Oil) 1,000 mg BID PO Last administered on 07/28/17 08:11; Start 07/25/17 at 21:00 Fluticasone Propionate (Flonase) 2 spray DAILY NS Last administered on 08:12; Start 07/26/17 at 09:00 Glimepiride (Amaryl) 0.5 mg DAILY PO Last administered on 07/28/17 08:11; Start 07/26/17 at 09:00 Non-Formulary Medication 1 each BID PO ; Start 07/25/17 at 21:00; Status UNV Losartan Potassium (Cozaar) 100 mg DAILY PO Last administered on 07/27/17 08: 29; Start 07/26/17 at 09:00 Atorvastatin Calcium (Lipitor) 5 mg QHS PO Last administered on 07/27/17 21:35 ; Start 07/25/17 at 21:00 Metoprolol Tartrate (Lopressor) 50 mg BID PO Last administered on 07/27/17 21: 35; Start 07/25/17 at 21:00 Multivitamins (Thera M Plus) 1 tab DAILY PO Last administered on 07/28/17 08: 11; Start 07/26/17 at 09:00 Nifedipine (Procardia Xl) 90 mg DAILY PO Last administered on 07/27/17 08:30; Start 07/26/17 at 09:00 Sodium Chloride 1,000 ml @ 1,000 mls/hr 1X ONCE IV Last administered on 21:56; Start 07/25/17 at 19:45; Stop 07/25/17 at 20:44; Status DC Potassium Chloride (Klor-Con) 40 meq 1X ONCE PO Last administered on 21:41; Start 07/25/17 at 19:45; Stop 07/25/17 at 19:48; Status DC Sodium Chloride 1,000 ml @ 100 mls/hr 1X ONCE IV Last administered on 21:53; Start 07/25/17 at 19:45; Stop 07/26/17 at 05:44; Status DC Insulin Aspart (NovoLOG) 0-7 UNITS TIDWMEALS SQ Last administered on 07/27/17 16:58; Start 07/26/17 at 08:00 Dextrose (Dextrose 50%-Water Syringe) 12.5 gm PRN Q15MIN PRN IV SEE COMMENTS; Start 07/25/17 at 20:00 Info (Do NOT chart on this placeholder) 0.5 each 1X ONCE MC ; Start 07/26/17 at 09:00; Stop 07/26/17 at 09:01; Status UNV Influenza Virus Vaccine Quadrival (Fluarix Quad [id number] Syringe) 0.5 ml ONCE ONCE VAX IM Last administered on 07/28/17 09:31; Start 07/26/17 at 09:00; Stop 07/26/17 at 09:01; Status DC Albuterol/ Ipratropium (Duoneb) 3 ml RTQID NEB Last administered on 07/28/17 08:02; Start 07/26/17 at 08:00 Albuterol Sulfate (Ventolin Neb Soln) 2.5 mg PRN Q2HRS PRN NEB SHORTNESS OF BREATH Last administered on 07/26/17 02:00; Start 07/26/17 at 01:30 Enoxaparin Sodium (Lovenox 100mg Syringe) 100 mg 1X ONCE SQ Last administered on 07/26/17 02:08; Start 07/26/17 at 02:00; Stop 07/26/17 at 02:04; Status DC Heparin Sodium/ Dextrose 500 ml @ 0 mls/hr CONT PRN IV SEE I/O RECORD Last administered on 07/26/17 03:42; Start 07/26/17 at 03:30; Stop 07/28/17 at 08:16 ; Status DC Heparin Sodium (Porcine) (Heparin Sodium) 2,450 unit PRN Q6HRS PRN IV FOR UFH LEVEL LESS THAN 0.2; Start 07/26/17 at 03:30; Stop 07/28/17 at 08:16; Status DC Info (Anti-Coagulation Monitoring By Pharmacy) 1 each PRN DAILY PRN MC SEE COMMENTS Last administered on 07/27/17 10:04; Start 07/26/17 at 03:30; Stop at 08:16; Status DC Vancomycin HCl (Vanco Per Pharmacy) 1 each PRN DAILY PRN MC SEE COMMENTS Last administered on 07/28/17 00:18; Start 07/26/17 at 08:15 Meropenem 1 gm/ Sodium Chloride 100 ml @ 200 mls/hr Q8HRS IV Last administered on 07/28/17 05:02; Start 07/26/17 at 08:30 Vancomycin HCl 2 gm/Sodium Chloride 500 ml @ 250 mls/hr 1X ONCE IV Last administered on 07/26/17 09:27; Start 07/26/17 at 08:30; Stop 07/26/17 at 10:29 ; Status DC Potassium Chloride (Klor-Con) 40 meq DAILYWBKFT PO Last administered on 08:11; Start 07/26/17 at 09:30 Vancomycin HCl 1.25 gm/Sodium Chloride 250 ml @ 167 mls/hr Q12H IV Last administered on 07/27/17 21:37; Start 07/26/17 at 22:00; Stop 07/28/17 at 01:00 ; Status DC Vancomycin HCl 1 each 1X ONCE MC Last administered on 07/27/17 21:30; Start 07/27/17 at 21:30; Stop 07/27/17 at 21:31; Status DC Furosemide (Lasix) 40 mg 1X ONCE IVP Last administered on 07/26/17 11:47; Start 07/26/17 at 11:30; Stop 07/26/17 at 11:31; Status DC Gadobutrol (Gadavist) 10 mmol 1X ONCE IV Last administered on 07/26/17 16:19 ; Start 07/26/17 at 16:15; Stop 07/26/17 at 16:16; Status DC Morphine Sulfate 3 mg PRN Q3HRS PRN IV PAIN Last administered on 07/28/17 03: 40; Start 07/27/17 at 08:30 Morphine Sulfate 4 mg PRN Q3HRS PRN IV PAIN; Start 07/27/17 at 08:30 Morphine Sulfate 5 mg PRN Q3HRS PRN IV PAIN; Start 07/27/17 at 08:45 Gadobutrol (Gadavist) 9 mmol 1X ONCE IV Last administered on 07/27/17 10:37; Start 07/27/17 at 10:15; Stop 07/27/17 at 10:16; Status DC Furosemide (Lasix) 40 mg 1X ONCE IVP Last administered on 07/27/17 14:12; Start 07/27/17 at 14:00; Stop 07/27/17 at 14:01; Status DC Vancomycin HCl 1.5 gm/Sodium Chloride 500 ml @ 250 mls/hr Q24H IV ; Start 07/28 at 22:00 Vancomycin HCl 1 each 1X ONCE MC ; Start 07/30/17 at 21:30; Stop 07/30/17 at 21 :31 Acetaminophen (Tylenol) 650 mg PRN Q6HRS PRN PO FEVER > 100.5'F; Start at 05:30 Active Scripts Active Colace (Docusate Sodium) 100 Mg Capsule 100 Mg PO BID 60 Days Methocarbamol 750 Mg Tablet 750 Mg PO TID 60 Days Hydrocodone-Apap 7.5-325 (Hydrocodone Bit/Acetaminophen) 1 Each Tablet 1 Tab PO PRN Q6HRS PRN 60 Days Reported Tamsulosin Hcl 0.4 Mg Cap.er.24h 0.4 Mg PO DAILY Metformin Hcl 500 Mg Tablet 500 Mg PO DAILYBFRSUP Gabapentin 100 Mg Capsule 100 Mg PO TID Lovastatin 20 Mg Tablet 1 Tab PO DAILY Bxyqaqaymq-Vnmvdfepfzs-Zyg Tab (Gluc/Jonah-Msm#2/C/D3/Vidal/Born) 1 Each Tablet 1 Each PO BID Glimepiride 1 Mg Tablet 0.5 Tab PO DAILY Losartan Potassium 100 Mg Tablet 100 Mg PO DAILY Diclofenac Sodium 75 Mg Tablet.dr 75 Mg PO BID Nitrostat (Nitroglycerin) 0.4 Mg Tab.subl 0.4 Mg SL PRN Viagra (Sildenafil Citrate) 100 Mg Tablet 100 Mg PO PRN Potassium Chloride 10 Meq Tablet.er 10 Meq PO DAILY Metformin Hcl 1,000 Mg Tablet 1,000 Mg PO DAILY08 Hydrochlorothiazide Tablet (Hydrochlorothiazide) 25 Mg Tablet 25 Mg PO DAILY Metoprolol Tartrate 100 Mg Tablet 50 Mg PO BID Flovent 50MCG Diskus (Fluticasone Propionate) 50 Mcg Disk.w.dev 50 Mcg IH DAILY Citalopram Hbr (Citalopram Hydrobromide) 20 Mg Tablet 20 Mg PO BID Nifedipine Er (Nifedipine) 90 Mg Tab.er.24 90 Mg PO DAILY Multivitamins (Multivitamin) 1 Each Tablet 1 Each PO DAILY Fish Oil 1,200 Mg Fish Oil (Fish Oil/Dha/Epa) 1 Each Capsule 1 Each PO BID Vitals/I & O Vital Sign - Last 24 Hours 07/27/17 07/27/17 07/27/17/1/17 11:00 11:29 11:50 14:00 Pulse 85 74 Resp 19 20 B/P (MAP) 119/65 (83) 119/60 (79) Pulse Ox 94 93 91 O2 Delivery Nasal Cannula Nasal Cannula Nasal Cannula Nasal Cannula O2 Flow Rate 10.0 10.0 10.0 10.0 07/27/17 07/27/17 07/27/17 07/27/17 15:12 15:19 15:36 16:00 Temp 98.7 98.7 Pulse 77 81 Resp 18 20 B/P (MAP) 113/55 (74) 123/56 (78) Pulse Ox 93 94 92 O2 Delivery Nasal Cannula Nasal Cannula Nasal Cannula Nasal Cannula O2 Flow Rate 10.0 10.0 10.0 10.0 07/27/17 07/27/17 07/27/17 07/27/17 17:00 17:02 17:30 18:26 Pulse 80 73 Resp 22 22 B/P (MAP) 108/60 (76) 101/57 (72) Pulse Ox 94 91 91 91 O2 Delivery Nasal Cannula Nasal Cannula Nasal Cannula O2 Flow Rate 10.0 10.0 10.0 10.0 07/27/17 07/27/17 07/27/17 07/27/17 19:00 19:59 20:00 20:01 Temp 98.4 98.4 Pulse 77 80 Resp 20 20 B/P (MAP) 103/57 (72) 111/62 (78) Pulse Ox 91 91 O2 Delivery Nasal Cannula Nasal Cannula Nasal Cannula O2 Flow Rate 10.0 10.0 10.0 7.0 07/27/17 07/27/17 07/27/17 07/27/17 20:32 21:00 21:35 21:36 Pulse 90 80 Resp 22 20 B/P (MAP) 119/66 (83) 111/62 Pulse Ox 90 90 O2 Delivery Nasal Cannula Nasal Cannula Nasal Cannula O2 Flow Rate 10.0 7.0 7.0 07/27/17 07/27/17 07/28/17 07/28/17 22:00 22:58 00:00 00:01 Pulse 88 78 Resp 20 20 B/P (MAP) 113/77 (89) 105/70 (82) Pulse Ox 75 75 100 O2 Delivery BiPAP/CPAP BiPAP/CPAP Bi-pap BiPAP/CPAP 07/28/17 07/28/17 07/28/17 07/28/17 00:01 01:04 02:00 02:12 Temp 98.0 98.0 Pulse 78 80 72 Resp 20 20 20 B/P (MAP) 124/70 (88) 111/70 (84) 119/62 (81) Pulse Ox 99 99 97 96 O2 Delivery BiPAP/CPAP BiPAP/CPAP BiPAP/CPAP BiPAP/CPAP 07/28/17 07/28/17 07/28/17 07/28/17 03:00 03:40 04:00 04:00 Temp 101.0 101.0 Pulse 77 72 Resp 20 22 20 B/P (MAP) 103/60 (74) 120/62 (81) Pulse Ox 95 95 O2 Delivery BiPAP/CPAP BiPAP/CPAP Bi-pap BiPAP/CPAP 07/28/17 07/28/17 07/28/17 07/28/17 04:10 04:13 05:00 06:00 Temp 100.6 99.9 100.6 99.9 Pulse 68 82 Resp 22 20 20 B/P (MAP) 130/71 (90) 122/71 (88) Pulse Ox 96 95 96 O2 Delivery BiPAP/CPAP BiPAP/CPAP BiPAP/CPAP BiPAP/CPAP 07/28/17 07/28/17 07/28/17 07/28/17 06:18 07:00 07:53 08:00 Pulse 70 Resp 19 B/P (MAP) 122/64 (83) Pulse Ox 96 98 98 O2 Delivery BiPAP/CPAP BiPAP/CPAP BiPAP/CPAP Bi-pap 07/28/17 07/28/17 07/28/17 07/28/17 08:00 08:00 09:00 10:00 Temp 97.9 97.9 Pulse 69 78 80 Resp 22 21 19 B/P (MAP) 113/61 (78) 108/51 (70) 117/60 (79) Pulse Ox 90 94 91 O2 Delivery Nasal Cannula Nasal Cannula Nasal Cannula O2 Flow Rate 7.0 6.0 2.0 2.0 Intake and Output 07/28/17 07/28/17 07/29/17 15:00 23:00 07:00 Intake Total 100 ml Balance 100 ml Images MRI lumbar: FINDINGS: There is minimal retrolisthesis of L3 on L4. Vertebral body heights are maintained. No evidence for acute fracture. There is a osseous hemangioma involving the T12 and L2 vertebral body. Otherwise, marrow signal intensity is normal in all sequences. There is minimal disc desiccation at L4-5 and L5-S1. Visualized portions of the retroperitoneum are within normal limits. Abdominal aorta is normal in course and caliber. Postoperative changes are identified at the L4 and L5 vertebral levels from prior microdiscectomy. L2-L3: Disc is normal in configuration. No significant facet arthropathy. No neural foraminal or spinal canal stenosis. L3-L4: There is a disc bulge. Moderate right and mild left facet arthropathy. Moderate right and mild left neural foraminal stenosis. Mild spinal canal stenosis. L4-L5: There is a disc bulge. In the right ventral epidural space, there is a T2 hyperintense, T1 hypointense nonenhancing collection measuring 8 x 10 x 21 mm (AP by transverse by craniocaudal). Right hemilaminectomy changes are identified at this level. There is ligamentum flavum in folding. There is moderate to advanced facet arthropathy. There is severe spinal canal stenosis. Additionally, there is right lateral recess stenosis. L5-S1: There is minimal disc bulge with left central disc protrusion. Moderate right and mild left facet arthropathy. Moderate bilateral neural foraminal stenosis. IMPRESSION: 1. Postoperative changes from microdiscectomy are identified at L4-L5. There is a 8 x 10 x 21 mm collection in the anterior right epidural space without associated enhancement. Findings may represent recurrent right central disc extrusion versus cystic degeneration of postoperative hematoma. Lack of enhancement makes granulation tissue less likely consideration. There is associated right lateral recess stenosis and severe spinal canal stenosis. 2. Minimal retrolisthesis of L3 on L4, stable. 3. Left central disc protrusion at L5-S1. STEPHANIA BARKSDALE MD Jul 28, 2017 10:25
[2017-07-28 11:09] LABS: VITAMIN-B12 585 pg/mL (247-911)
[2017-07-28 11:56] LABS: FOLATE > 24.00 ng/ml (3.2-20.0)
--- NOTE | 2017-07-28 12:26 | PDOC ---
Provider Note Provider Note consult dictated REINA OLIVARES MD Jul 28, 2017 12:26
--- NOTE | 2017-07-28 13:00 | CONS ---
DATE OF CONSULTATION: 07/28/2017 REASON FOR CONSULTATION: Back pain and confusion. HISTORY OF PRESENT ILLNESS: The patient is a pleasant 72-year-old man who 5 months ago underwent lumbar microsurgery for lumbar radiculopathy and did well in the postoperative period; however, he developed problems of lumbar infection, was given IV antibiotics for 6 weeks, did well and was discharged from infectious disease. He was doing reasonably well, and had returned to work, until about 2-3 weeks ago when he began developing increasing lower back pain, which became more and more severe. Per his , he stumbled and fell a couple of times in the recent 2 weeks. About 3 days ago, he developed feelings of weakness along with some chills and sweats and increasing back pain. He said he went to work yesterday morning and developed increasing pain and chills, left work and on the way home, he said that he pulled over and per history, he lost consciousness. He was brought to the Emergency Room for further evaluation and treatment. He denies any significant pain other than increased back pain. He does have chronic problems with left lower extremity weakness related to the surgery he has done many years ago on his lumbar spine. In the Emergency Room, he was found to have a white count of 18.9 along with a troponin of 0.43, which increased to 4.9 the following morning and creatine kinase of 3442. He has had problems with fever of 102. At this time, he is sitting in a chair, answering questions appropriately, following commands briskly. He is a reasonable historian, his available for further supplementation of his history. PAST MEDICAL HISTORY: Includes the MSSA back infection, treated in . He also has a history of gout, hypertension, diabetes and previous cancer with radiation therapy. PAST SURGICAL HISTORY: Lumbar surgeries, hernia repair, melanoma removal, cardiac stent in the past. REVIEW OF SYSTEMS: Twelve points was performed and was negative other than outlined above. CURRENT MEDICATIONS: Noncontributory to the MRAD. ALLERGIES: He is allergic to PENICILLIN, but has tolerated cephalosporins. He also reports allergies to IODINATED CONTRAST, SIMVASTATIN. PERSONAL HISTORY: He is , lives with his , continues to work. He does not smoke. PHYSICAL EXAMINATION: GENERAL APPEARANCE: He is afebrile, pleasant, cooperative, alert. HEENT: Normocephalic. NECK: Supple. MUSCULOSKELETAL: Examination of lumbar spine, there is a long, well-healed lumbar incision. There was no significant erythema. There was no tenderness with palpation in the lower lumbar spine midline and adjacent paraspinal regions except for very mild tenderness. LOWER EXTREMITIES: I felt range of motion was normal in both of his lower extremities. His strength was 5/5 in his right lower extremity. In the left lower extremity, his strength was 5/5 except for left foot dorsiflexion, which was 4/5. On sensory testing, he was intact to light touch in both of his lower extremities. He had trace reflexes in the knees and absent ankle jerks, negative straight leg raising bilaterally. LABORATORY DATA: I reviewed his lumbar MRI scan at the time of admission and at the level of L4-L5, there are postoperative changes. There is a T2 hyperintense, T1 hypointense nonenhancing collection which measures 21 mm in greatest diameter and is located in the anterolateral epidural space. There is also disc bulging at this level. Further laboratory data,on blood cultures a staph species was obtained. ASSESSMENT AND PLAN: I am concerned that there is a potential for infection at L4-L5 which most likely would be staph. At this point, he is on antibiotics. He does have severe back pain. He has had a recent myocardial; therefore, surgery at this point to obtain a more definitive diagnosis is not contemplated. I would recommend continuing IV antibiotics and following him with regard to his back pain on neurologic exam. From my standpoint, he could be transferred out of the Intensive Care Unit. I appreciate you asking us to see him. REINA OLIVARES MD DR: BRNEDEN/terri JOB#: [id number] / [id number] PHILOMENA
--- NOTE | 2017-07-28 16:41 | PDOC ---
PROGRESS NOTES Subjective Subjective Patient is up in chair. He saw alert, responsive, oriented. Has no recollection of some of the stuff that has been going on for the past few days. Objective Objective Vital Signs Date Time Temp Pulse Resp B/P (MAP) Pulse Ox O2 Delivery O2 Flow Rate FiO2 07/28/17 15:09 92 Nasal Cannula 2.0 07/28/17 15:00 85 31 133/57 (82) 07/28/17 12:00 98.9 98.9 Intake and Output 07/29/17 07:00 Intake Total 900 ml Output Total 600 ml Balance 300 ml Intake Oral 900 ml Output Urine Total 600 ml Physical Exam Physical Exam No significant changes in cardiac exam Assessment Assessment The patient appears to be compensated today. At some point he will need to have a heart catheterization but I would like to wait and make sure that there is no ongoing infection. Comment Review of Relevant I have reviewed the following items kyler (where applicable) has been applied. Labs Laboratory Tests Test 07/26/17 17:00 07/26/17 18:30 07/27/17 05:40 07/27/17 07:39 Glucose (Fingerstick) 136 mg/dL (70-99) 135 mg/dL (70-99) Heparin Anti-Xa Act, Unfractionated 0.13 IU/mL (0.30-0.70) White Blood Count 12.2 x10^3/uL (4.0-11.0) Red Blood Count 3.38 x10^6/uL (4.30-5.70) Hemoglobin 9.7 g/dL (13.0-17.5) Hematocrit 27.6 % (39.0-53.0) Mean Corpuscular Volume 82 fL (79-100) Mean Corpuscular Hemoglobin 29 pg (25-35) Mean Corpuscular Hemoglobin Concent 35 g/dL (31-37) Red Cell Distribution Width 13.9 % (11.5-14.5) Platelet Count 176 x10^3/uL (140-400) Sodium Level 129 mmol/L (136-145) Potassium Level 3.5 mmol/L (3.5-5.1) Chloride Level 94 mmol/L (98-107) Carbon Dioxide Level 24 mmol/L (21-32) Anion Gap 11 (6-14) Blood Urea Nitrogen 25 mg/dL (8-26) Creatinine 1.4 mg/dL (0.7-1.3) Estimated GFR (Cockcroft-Gault) 50.1 Glucose Level 130 mg/dL (70-99) Calcium Level 8.1 mg/dL (8.5-10.1) Creatine Kinase 1386 U/L (39-308) Creatine Kinase MB (Mass) 9.5 ng/mL (0.0-3.6) Creatine Kinase MB Relative Index 0.7 % (0-4) Troponin I Quantitative 9.233 ng/mL (0.000-0.055) Triglycerides Level 107 mg/dL (0-150) Cholesterol Level 96 mg/dL (0-200) LDL Cholesterol, Calculated 53 mg/dL (0-100) VLDL Cholesterol, Calculated 21 mg/dL (0-40) Non-HDL Cholesterol Calculated 74 mg/dL (0-129) HDL Cholesterol 22 mg/dL (40-60) Cholesterol/HDL Ratio 4.4 Test 07/27/17 11:53 07/27/17 13:41 07/27/17 16:55 07/27/17 21:30 Glucose (Fingerstick) 177 mg/dL (70-99) 173 mg/dL (70-99) Lactic Acid Level 1.9 mmol/L (0.4-2.0) Phosphorus Level 3.8 mg/dL (2.6-4.7) Creatine Kinase 1159 U/L (39-308) Vancomycin Level Trough 23.4 mcg/mL (10.0-20.0) Vancomycin Last Dose Date 07/27/17 Vancomycin Last Dose Time 1000 Test 07/28/17 04:10 07/28/17 04:17 07/28/17 07:36 07/28/17 08:13 White Blood Count 11.4 x10^3/uL (4.0-11.0) Red Blood Count 3.51 x10^6/uL (4.30-5.70) Hemoglobin 9.9 g/dL (13.0-17.5) Hematocrit 29.2 % (39.0-53.0) Mean Corpuscular Volume 83 fL (79-100) Mean Corpuscular Hemoglobin 28 pg (25-35) Mean Corpuscular Hemoglobin Concent 34 g/dL (31-37) Red Cell Distribution Width 14.1 % (11.5-14.5) Platelet Count 200 x10^3/uL (140-400) Neutrophils (%) (Auto) 83 % (31-73) Lymphocytes (%) (Auto) 5 % (24-48) Monocytes (%) (Auto) 12 % (0-9) Eosinophils (%) (Auto) 0 % (0-3) Basophils (%) (Auto) 0 % (0-3) Neutrophils # (Auto) 9.4 x10^3uL (1.8-7.7) Lymphocytes # (Auto) 0.6 x10^3/uL (1.0-4.8) Monocytes # (Auto) 1.3 x10^3/uL (0.0-1.1) Eosinophils # (Auto) 0.0 x10^3/uL (0.0-0.7) Basophils # (Auto) 0.0 x10^3/uL (0.0-0.2) Sodium Level 128 mmol/L (136-145) Potassium Level 3.9 mmol/L (3.5-5.1) Chloride Level 93 mmol/L (98-107) Carbon Dioxide Level 24 mmol/L (21-32) Anion Gap 11 (6-14) Blood Urea Nitrogen 29 mg/dL (8-26) Creatinine 1.3 mg/dL (0.7-1.3) Estimated GFR (Cockcroft-Gault) 54.6 Glucose Level 132 mg/dL (70-99) Calcium Level 8.4 mg/dL (8.5-10.1) Troponin I Quantitative 5.045 ng/mL (0.000-0.055) O2 Saturation 97 % (92-99) Arterial Blood pH 7.45 (7.35-7.45) Arterial Blood pCO2 at Patient Temp 30 mmHg (35-46) Arterial Blood pO2 at Patient Temp 99 mmHg (65-108) Arterial Blood HCO3 20 mmol/L (21-28) Arterial Blood Base Excess -3 mmol/L (-3-3) FiO2 60 Glucose (Fingerstick) 131 mg/dL (70-99) Test 07/28/17 12:43 Glucose (Fingerstick) 87 mg/dL (70-99) Laboratory Tests Test 07/27/17 16:55 07/27/17 21:30 07/28/17 04:10 07/28/17 04:17 Glucose (Fingerstick) 173 mg/dL (70-99) Vancomycin Level Trough 23.4 mcg/mL (10.0-20.0) Vancomycin Last Dose Date 07/27/17 Vancomycin Last Dose Time 1000 White Blood Count 11.4 x10^3/uL (4.0-11.0) Red Blood Count 3.51 x10^6/uL (4.30-5.70) Hemoglobin 9.9 g/dL (13.0-17.5) Hematocrit 29.2 % (39.0-53.0) Mean Corpuscular Volume 83 fL (79-100) Mean Corpuscular Hemoglobin 28 pg (25-35) Mean Corpuscular Hemoglobin Concent 34 g/dL (31-37) Red Cell Distribution Width 14.1 % (11.5-14.5) Platelet Count 200 x10^3/uL (140-400) Neutrophils (%) (Auto) 83 % (31-73) Lymphocytes (%) (Auto) 5 % (24-48) Monocytes (%) (Auto) 12 % (0-9) Eosinophils (%) (Auto) 0 % (0-3) Basophils (%) (Auto) 0 % (0-3) Neutrophils # (Auto) 9.4 x10^3uL (1.8-7.7) Lymphocytes # (Auto) 0.6 x10^3/uL (1.0-4.8) Monocytes # (Auto) 1.3 x10^3/uL (0.0-1.1) Eosinophils # (Auto) 0.0 x10^3/uL (0.0-0.7) Basophils # (Auto) 0.0 x10^3/uL (0.0-0.2) Sodium Level 128 mmol/L (136-145) Potassium Level 3.9 mmol/L (3.5-5.1) Chloride Level 93 mmol/L (98-107) Carbon Dioxide Level 24 mmol/L (21-32) Anion Gap 11 (6-14) Blood Urea Nitrogen 29 mg/dL (8-26) Creatinine 1.3 mg/dL (0.7-1.3) Estimated GFR (Cockcroft-Gault) 54.6 Glucose Level 132 mg/dL (70-99) Calcium Level 8.4 mg/dL (8.5-10.1) Troponin I Quantitative 5.045 ng/mL (0.000-0.055) Test 07/28/17 07:36 07/28/17 08:13 07/28/17 12:43 O2 Saturation 97 % (92-99) Arterial Blood pH 7.45 (7.35-7.45) Arterial Blood pCO2 at Patient Temp 30 mmHg (35-46) Arterial Blood pO2 at Patient Temp 99 mmHg (65-108) Arterial Blood HCO3 20 mmol/L (21-28) Arterial Blood Base Excess -3 mmol/L (-3-3) FiO2 60 Glucose (Fingerstick) 131 mg/dL (70-99) 87 mg/dL (70-99) Microbiology 07/25/17 Blood Culture - Final, Complete 07/25/17 Blood Culture Result 1 (LISET) - Final, Complete 07/25/17 Antimicrobic Susceptibility - Final, Complete Medications Current Medications Citalopram Hydrobromide (CeleXA) 20 mg BID PO Last administered on 07/28/17 08 :10; Start 07/25/17 at 21:00 Docusate Sodium (Colace) 100 mg BID PO Last administered on 07/28/17 08:11; Start 07/25/17 at 21:00 Gabapentin (Neurontin) 100 mg TID PO Last administered on 07/28/17 14:20; Start 07/25/17 at 21:00 Hydrochlorothiazide (Hydrodiuril) 25 mg DAILY PO Last administered on 08:30; Start 07/26/17 at 09:00; Stop 07/27/17 at 14:23; Status DC Acetaminophen/ Hydrocodone Bitart (Lortab 7.5/325) 1 tab PRN Q6HRS PRN PO PAIN Last administered on 07/27/17 07:40; Start 07/25/17 at 19:45 Metformin HCl (Glucophage) 1,000 mg DAILY08 PO Last administered on 07/28/17 08:11; Start 07/26/17 at 08:00 Metformin HCl (Glucophage) 500 mg DAILYBFRSUP PO Last administered on 16:57; Start 07/26/17 at 17:00 Methocarbamol (Robaxin) 750 mg TID PO Last administered on 07/26/17 08:38; Start 07/25/17 at 21:00; Stop 07/26/17 at 18:44; Status DC Potassium Chloride (Klor-Con) 10 meq DAILYWBKFT PO Last administered on 08:33; Start 07/26/17 at 08:00; Stop 07/26/17 at 08:55; Status DC Tamsulosin HCl (Flomax) 0.4 mg DAILY PO Last administered on 07/28/17 08:11; Start 07/26/17 at 09:00 Diclofenac Sodium (Voltaren) 75 mg BID PO Last administered on 07/28/17 09:04 ; Start 07/25/17 at 21:00 Fish Oil (Fish Oil) 1,000 mg BID PO Last administered on 07/28/17 08:11; Start 07/25/17 at 21:00 Fluticasone Propionate (Flonase) 2 spray DAILY NS Last administered on 08:12; Start 07/26/17 at 09:00 Glimepiride (Amaryl) 0.5 mg DAILY PO Last administered on 07/28/17 08:11; Start 07/26/17 at 09:00 Non-Formulary Medication 1 each BID PO ; Start 07/25/17 at 21:00; Status UNV Losartan Potassium (Cozaar) 100 mg DAILY PO Last administered on 07/27/17 08: 29; Start 07/26/17 at 09:00 Atorvastatin Calcium (Lipitor) 5 mg QHS PO Last administered on 07/27/17 21:35 ; Start 07/25/17 at 21:00 Metoprolol Tartrate (Lopressor) 50 mg BID PO Last administered on 07/27/17 21: 35; Start 07/25/17 at 21:00 Multivitamins (Thera M Plus) 1 tab DAILY PO Last administered on 07/28/17 08: 11; Start 07/26/17 at 09:00 Nifedipine (Procardia Xl) 90 mg DAILY PO Last administered on 07/27/17 08:30; Start 07/26/17 at 09:00 Sodium Chloride 1,000 ml @ 1,000 mls/hr 1X ONCE IV Last administered on 21:56; Start 07/25/17 at 19:45; Stop 07/25/17 at 20:44; Status DC Potassium Chloride (Klor-Con) 40 meq 1X ONCE PO Last administered on 21:41; Start 07/25/17 at 19:45; Stop 07/25/17 at 19:48; Status DC Sodium Chloride 1,000 ml @ 100 mls/hr 1X ONCE IV Last administered on 21:53; Start 07/25/17 at 19:45; Stop 07/26/17 at 05:44; Status DC Insulin Aspart (NovoLOG) 0-7 UNITS TIDWMEALS SQ Last administered on 07/27/17 16:58; Start 07/26/17 at 08:00 Dextrose (Dextrose 50%-Water Syringe) 12.5 gm PRN Q15MIN PRN IV SEE COMMENTS; Start 07/25/17 at 20:00 Info (Do NOT chart on this placeholder) 0.5 each 1X ONCE MC ; Start 07/26/17 at 09:00; Stop 07/26/17 at 09:01; Status UNV Influenza Virus Vaccine Quadrival (Fluarix Quad [id number] Syringe) 0.5 ml ONCE ONCE VAX IM Last administered on 07/28/17 09:31; Start 07/26/17 at 09:00; Stop 07/26/17 at 09:01; Status DC Albuterol/ Ipratropium (Duoneb) 3 ml RTQID NEB Last administered on 07/28/17 15:07; Start 07/26/17 at 08:00 Albuterol Sulfate (Ventolin Neb Soln) 2.5 mg PRN Q2HRS PRN NEB SHORTNESS OF BREATH Last administered on 07/26/17 02:00; Start 07/26/17 at 01:30 Enoxaparin Sodium (Lovenox 100mg Syringe) 100 mg 1X ONCE SQ Last administered on 07/26/17 02:08; Start 07/26/17 at 02:00; Stop 07/26/17 at 02:04; Status DC Heparin Sodium/ Dextrose 500 ml @ 0 mls/hr CONT PRN IV SEE I/O RECORD Last administered on 07/26/17 03:42; Start 07/26/17 at 03:30; Stop 07/28/17 at 08:16 ; Status DC Heparin Sodium (Porcine) (Heparin Sodium) 2,450 unit PRN Q6HRS PRN IV FOR UFH LEVEL LESS THAN 0.2; Start 07/26/17 at 03:30; Stop 07/28/17 at 08:16; Status DC Info (Anti-Coagulation Monitoring By Pharmacy) 1 each PRN DAILY PRN MC SEE COMMENTS Last administered on 07/27/17 10:04; Start 07/26/17 at 03:30; Stop at 08:16; Status DC Vancomycin HCl (Vanco Per Pharmacy) 1 each PRN DAILY PRN MC SEE COMMENTS Last administered on 07/28/17 00:18; Start 07/26/17 at 08:15; Stop 07/28/17 at 12:53 ; Status DC Meropenem 1 gm/ Sodium Chloride 100 ml @ 200 mls/hr Q8HRS IV Last administered on 07/28/17 14:20; Start 07/26/17 at 08:30 Vancomycin HCl 2 gm/Sodium Chloride 500 ml @ 250 mls/hr 1X ONCE IV Last administered on 07/26/17 09:27; Start 07/26/17 at 08:30; Stop 07/26/17 at 10:29 ; Status DC Potassium Chloride (Klor-Con) 40 meq DAILYWBKFT PO Last administered on 08:11; Start 07/26/17 at 09:30 Vancomycin HCl 1.25 gm/Sodium Chloride 250 ml @ 167 mls/hr Q12H IV Last administered on 07/27/17 21:37; Start 07/26/17 at 22:00; Stop 07/28/17 at 01:00 ; Status DC Vancomycin HCl 1 each 1X ONCE MC Last administered on 07/27/17 21:30; Start 07/27/17 at 21:30; Stop 07/27/17 at 21:31; Status DC Furosemide (Lasix) 40 mg 1X ONCE IVP Last administered on 07/26/17 11:47; Start 07/26/17 at 11:30; Stop 07/26/17 at 11:31; Status DC Gadobutrol (Gadavist) 10 mmol 1X ONCE IV Last administered on 07/26/17 16:19 ; Start 07/26/17 at 16:15; Stop 07/26/17 at 16:16; Status DC Morphine Sulfate 3 mg PRN Q3HRS PRN IV PAIN Last administered on 07/28/17 03: 40; Start 07/27/17 at 08:30 Morphine Sulfate 4 mg PRN Q3HRS PRN IV PAIN; Start 07/27/17 at 08:30 Morphine Sulfate 5 mg PRN Q3HRS PRN IV PAIN; Start 07/27/17 at 08:45 Gadobutrol (Gadavist) 9 mmol 1X ONCE IV Last administered on 07/27/17 10:37; Start 07/27/17 at 10:15; Stop 07/27/17 at 10:16; Status DC Furosemide (Lasix) 40 mg 1X ONCE IVP Last administered on 07/27/17 14:12; Start 07/27/17 at 14:00; Stop 07/27/17 at 14:01; Status DC Vancomycin HCl 1.5 gm/Sodium Chloride 500 ml @ 250 mls/hr Q24H IV ; Start 07/28 at 22:00; Stop 07/28/17 at 22:00; Status DC Vancomycin HCl 1 each 1X ONCE MC ; Start 07/30/17 at 21:30; Stop 07/30/17 at 21 :30; Status DC Acetaminophen (Tylenol) 650 mg PRN Q6HRS PRN PO FEVER > 100.5'F; Start at 05:30 Active Scripts Active Colace (Docusate Sodium) 100 Mg Capsule 100 Mg PO BID 60 Days Methocarbamol 750 Mg Tablet 750 Mg PO TID 60 Days Hydrocodone-Apap 7.5-325 (Hydrocodone Bit/Acetaminophen) 1 Each Tablet 1 Tab PO PRN Q6HRS PRN 60 Days Reported Tamsulosin Hcl 0.4 Mg Cap.er.24h 0.4 Mg PO DAILY Metformin Hcl 500 Mg Tablet 500 Mg PO DAILYBFRSUP Gabapentin 100 Mg Capsule 100 Mg PO TID Lovastatin 20 Mg Tablet 1 Tab PO DAILY Uikaiovjbs-Uxyngaoikjv-Tzl Tab (Gluc/Jonah-Msm#2/C/D3/Vidal/Born) 1 Each Tablet 1 Each PO BID Glimepiride 1 Mg Tablet 0.5 Tab PO DAILY Losartan Potassium 100 Mg Tablet 100 Mg PO DAILY Diclofenac Sodium 75 Mg Tablet.dr 75 Mg PO BID Nitrostat (Nitroglycerin) 0.4 Mg Tab.subl 0.4 Mg SL PRN Viagra (Sildenafil Citrate) 100 Mg Tablet 100 Mg PO PRN Potassium Chloride 10 Meq Tablet.er 10 Meq PO DAILY Metformin Hcl 1,000 Mg Tablet 1,000 Mg PO DAILY08 Hydrochlorothiazide Tablet (Hydrochlorothiazide) 25 Mg Tablet 25 Mg PO DAILY Metoprolol Tartrate 100 Mg Tablet 50 Mg PO BID Flovent 50MCG Diskus (Fluticasone Propionate) 50 Mcg Disk.w.dev 50 Mcg IH DAILY Citalopram Hbr (Citalopram Hydrobromide) 20 Mg Tablet 20 Mg PO BID Nifedipine Er (Nifedipine) 90 Mg Tab.er.24 90 Mg PO DAILY Multivitamins (Multivitamin) 1 Each Tablet 1 Each PO DAILY Fish Oil 1,200 Mg Fish Oil (Fish Oil/Dha/Epa) 1 Each Capsule 1 Each PO BID Vitals/I & O Vital Sign - Last 24 Hours 07/27/17 07/27/17 07/27/17 07/27/17 17:00 17:02 17:30 18:26 Pulse 80 73 Resp 22 22 B/P (MAP) 108/60 (76) 101/57 (72) Pulse Ox 94 91 91 91 O2 Delivery Nasal Cannula Nasal Cannula Nasal Cannula O2 Flow Rate 10.0 10.0 10.0 10.0 07/27/17 07/27/17 07/27/17 07/27/17 19:00 19:59 20:00 20:01 Temp 98.4 98.4 Pulse 77 80 Resp 20 20 B/P (MAP) 103/57 (72) 111/62 (78) Pulse Ox 91 91 O2 Delivery Nasal Cannula Nasal Cannula Nasal Cannula O2 Flow Rate 10.0 10.0 10.0 7.0 07/27/17 07/27/17 07/27/17 07/27/17 20:32 21:00 21:35 21:36 Pulse 90 80 Resp 22 20 B/P (MAP) 119/66 (83) 111/62 Pulse Ox 90 90 O2 Delivery Nasal Cannula Nasal Cannula Nasal Cannula O2 Flow Rate 10.0 7.0 7.0 07/27/17 07/27/17 07/28/17 07/28/17 22:00 22:58 00:00 00:01 Pulse 88 78 Resp 20 20 B/P (MAP) 113/77 (89) 105/70 (82) Pulse Ox 75 75 100 O2 Delivery BiPAP/CPAP BiPAP/CPAP Bi-pap BiPAP/CPAP 07/28/17 07/28/17 07/28/17 07/28/17 00:01 01:04 02:00 02:12 Temp 98.0 98.0 Pulse 78 80 72 Resp 20 20 20 B/P (MAP) 124/70 (88) 111/70 (84) 119/62 (81) Pulse Ox 99 99 97 96 O2 Delivery BiPAP/CPAP BiPAP/CPAP BiPAP/CPAP BiPAP/CPAP 07/28/17 07/28/17 07/28/17 07/28/17 03:00 03:40 04:00 04:00 Temp 101.0 101.0 Pulse 77 72 Resp 20 22 20 B/P (MAP) 103/60 (74) 120/62 (81) Pulse Ox 95 95 O2 Delivery BiPAP/CPAP BiPAP/CPAP Bi-pap BiPAP/CPAP 07/28/17 07/28/17 07/28/17 07/28/17 04:10 04:13 05:00 06:00 Temp 100.6 99.9 100.6 99.9 Pulse 68 82 Resp 22 20 20 B/P (MAP) 130/71 (90) 122/71 (88) Pulse Ox 96 95 96 O2 Delivery BiPAP/CPAP BiPAP/CPAP BiPAP/CPAP BiPAP/CPAP 07/28/17 07/28/17 07/28/17 07/28/17 06:18 07:00 07:53 08:00 Pulse 70 Resp 19 B/P (MAP) 122/64 (83) Pulse Ox 96 98 98 O2 Delivery BiPAP/CPAP BiPAP/CPAP BiPAP/CPAP Bi-pap 07/28/17 07/28/17 07/28/17 07/28/17 08:00 08:00 09:00 10:00 Temp 97.9 97.9 Pulse 69 78 80 Resp 22 21 19 B/P (MAP) 113/61 (78) 108/51 (70) 117/60 (79) Pulse Ox 90 94 91 O2 Delivery Nasal Cannula Nasal Cannula Nasal Cannula O2 Flow Rate 7.0 6.0 2.0 2.0 07/28/17 07/28/17 07/28/17 07/28/17 11:00 11:29 12:00 12:00 Temp 98.9 98.9 Pulse 99 91 Resp 15 22 B/P (MAP) 164/79 (107) 125/59 (81) Pulse Ox 95 96 93 O2 Delivery Nasal Cannula Nasal Cannula Nasal Cannula Nasal Cannula O2 Flow Rate 4.0 2.0 4.0 4.0 07/28/17 07/28/17 07/28/17 07/28/17 13:00 14:00 15:00 15:09 Pulse 87 87 85 Resp 20 18 31 B/P (MAP) 122/59 (80) 133/67 (89) 133/57 (82) Pulse Ox 94 93 92 92 O2 Delivery Room Air Nasal Cannula Nasal Cannula Nasal Cannula O2 Flow Rate 4.0 4.0 2.0 Intake and Output 07/28/17 07/28/17 07/29/17 15:00 23:00 07:00 Intake Total 300 ml 600 ml Output Total 600 ml Balance 300 ml 0 ml BRYCE DAILY MD Jul 28, 2017 16:41
--- NOTE | 2017-07-28 17:55 | CARD ---
APPROVED REPORT EXAM: Two-dimensional and M-mode echocardiogram with Doppler and color Doppler. Other Information Quality : Average Rhythm : NSR INDICATION Congestive Heart Failure 2D DIMENSIONS Left Atrium(2D)3.6 (1.6-4.0cm)IVSd1.3 (0.7-1.1cm) Aortic Root(2D)3.1 (2.0-3.7cm)LVDd4.0 (3.9-5.9cm) LVOT Diameter2.0 (1.8-2.4cm)PWd1.3 (0.7-1.1cm) LVDs2.5 (2.5-4.0cm)FS (%) 33.3 % SV49.0 mlLVEF(%)64.0 (>50%) Aortic Valve AoV Peak Shekhar.137.3cm/sAoV VTI26.0cm AO Peak GR.7.5mmHgLVOT VTI 20.81cm AO Mean GR.5mmHg Mitral Valve MV E Qwsfoqgs334.7cm/sMV E Peak Gr.8mmHg MV DECEL [id number] A Woxrmrqu224.8cm/s MV E Mean Gr.3mmHgMV [id number] E/A Ratio1.3MV A [id number] MVA (PHT)3.55cm2 TDI Lateral E' P. V12.83cm/sMedial E' P. V10.07cm/s E/Lateral E'10.8E/Medial E'13.8 Tricuspid Valve TR P. Lpmgnnpk232fy/sRAP [id number] TR Peak Gr.33dsGmKSRD26tsFf LEFT VENTRICLE The left ventricle is normal size. There is borderline concentric left ventricular hypertrophy. Left ventricle systolic function is normal. The Ejection Fraction is 64%. There is normal LV segmental wal l motion. The left ventricular diastolic function and filling is normal for age. There is no ventricu lar septal defect visualized. RIGHT VENTRICLE The right ventricle is normal size. The right ventricular systolic function is normal. ATRIA The left atrium size is normal. The right atrium size is normal. The interatrial septum is intact wit h no evidence for an atrial septal defect or patent foramen ovale as noted on 2-D or Doppler imaging. AORTIC VALVE The aortic valve is normal in structure and function. The aortic valve is trileaflet. Doppler and Col or Flow revealed no significant aortic regurgitation. There is no significant aortic valvular stenosi s. MITRAL VALVE The mitral valve is normal in structure and function. There is no mitral valve stenosis. Doppler and Color Flow revealed no mitral valve regurgitation noted. TRICUSPID VALVE The tricuspid valve is normal in structure. Doppler and Color Flow revealed trace to mild tricuspid r egurgitation. The PA pressure was estimated at 38 mmHg. There is no tricuspid valve stenosis. PULMONIC VALVE The pulmonic valve is not well visualized. Doppler and Color Flow revealed no pulmonic valvular regur gitation. There is no pulmonic valvular stenosis. GREAT VESSELS The aortic root is normal in size. Pulmonary veins not recorded. The IVC is normal in size and collap ses >50% with inspiration. PERICARDIAL EFFUSION There is no evidence of significant pericardial effusion. Critical Notification Critical Value: No <Conclusion> Left ventricle systolic function is normal. The Ejection Fraction is 64%. There is borderline concentric left ventricular hypertrophy. The left atrium size is normal. The right atrium size is normal. The aortic valve is normal in structure and function. The aortic valve is trileaflet. The mitral valve is normal in structure and function. Doppler and Color Flow revealed trace to mild tricuspid regurgitation. The PA pressure was estimated at 38 mmHg. The pulmonic valve is not well visualized. There is no evidence of significant pericardial effusion.
[2017-07-28] MEDS: metFORMIN 500 MG TABLET PO SCH (18:39)
[2017-07-28] MEDS ORDERED: TAMSULOSIN 0.4 MG CAP.ER.24H. PO SCH (21:00)
[2017-07-28] MEDS: ATORVASTATIN CALCIUM 10 MG TABLET. PO SCH (21:53)
[2017-07-28] MEDS ORDERED: VANCOMYCIN 1.5 GM in IV NORMAL SALINE 500ML BAG 500 ML IV SCH (22:00)
--- NOTE | 2017-07-29 01:23 | CONS ---
DATE OF CONSULTATION: PHYSICAL EXAMINATION: Today revealed an elderly male. He is alert, oriented to place and person, follows commands appropriately, moves all 4 extremities voluntarily where he had 4+/5 grade muscle strength except relative weakness of dorsiflexor muscles of both feet, especially of the toes, left more than right side. He had equal perception of touch and pinprick sensation bilaterally. Deep tendon reflexes are 1-2+ and symmetrical. He had no significant tenderness to palpation over lumbar spine or adjoining paraspinal muscles or over sacral joint area or gluteal muscles or trochanteric bursa. He had pain free range of motion of all four extremity joints. The patient is independent with rolling from side to side and he got up and walked using a roller walker with somewhat wide-based gait without any dragging of the feet on level surface, he gets tired easily. His oxygen saturation dropped to 88% on room air. He denies any chest pain or back pain while up walking. He had an indwelling Cordoba catheter in place. He had abraded skin just below right knee from recent falls. He apparently fell twice in the last week. ASSESSMENT: Mobility self-care and cognition including sepsis in a patient with hypoxemia and residual weakness of dorsiflexor muscles of both feet, mainly of the toes from lumbar spine surgery done about 10 years ago. The patient is status post lumbar spine surgery done in February of this year, postop he developed wound infection with staph, requiring IV antibiotics and at present time he presents with leukocytosis and positive blood culture and he also presents with neurogenic bladder. The patient probably with benign prostatic hypertrophy, had Flomax, which ran out of the prescription about a week ago that might be response for his inability to void at the time of admission. RECOMMENDATIONS: He is doing satisfactorily. I do not see any need for him to go to inpatient rehabilitation hospital, if he needs continued IV antibiotics. He might have to go to intermediate care unit for that, to try him with a lumbar corset to try him with Flomax and give him a voiding trial. Dr. Brenner, I appreciate asking me to participate in the care of this interesting patient. I will be glad to follow him with you as needed for the rehabilitation. EVERETT FRENCH MD DR: JO/terri JOB#: [id number] / [id number] PHILOMENA
--- NOTE | 2017-07-29 01:27 | CONS ---
DATE OF CONSULTATION: 07/28/2017 ATTENDING PHYSICIAN: Laney Brenner M.D. REASON FOR CONSULTATION: The patient was seen at the request of Dr. Brenner for rehab evaluation. 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 The patient went to work on 07/25/2017. He works from 3:00 to 11:00 p.m. shift, looked off per his coworker, so he was advised to skip work and seek medical attention. Some unusual events like he was covered in sweat in a trench coat in the car maybe an hour. Had no recollection of that. After being admitted, he had a normal CT scan of the brain and unimpressive blood work. Neuro examination nonfocal, vital signs alright. 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 He had MRI scan of his lumbar vertebrae done on 07/27/2017, which revealed postoperative changes from microdiskectomy at L4-L5. There is an 8 x 10 x 21 mm collection in the anterior right epidural space without associated enhancement, may represent recurrent right central disk extrusion versus cystic degeneration of postoperative hematoma. Lack of enhancement makes granulation tissue less likely consideration and associated right lateral recess stenosis, and severe central spinal canal stenosis was noted, minimal retrolisthesis of L3 on L4, stable. Left central disk protrusion at L5-S1. The patient had lower extremity Doppler studies, which failed to reveal any evidence of deep venous thrombosis. The patient was also noted with leukocytosis. He is being seen by Infectious Disease. Dr. Gu saw him with concern that there is a potential of infection at L4-L5, which most likely would be staph. He recommended continued IV antibiotics. He noted that he is having severe back pain but with recent myocardial issues loose. Therefore, surgery at this point to obtain more definitive diagnosis is not contemplated. The patient was started on IV antibiotics. Dr. Faulkner that his encephalopathy probably responsibly for his memory problems. He was noted with hypoxemia. The patient is being followed by Physical Therapy and Occupational Therapy. I spoke to Dr. Lopez. He feels that he needs cardiac catheterization, but at this time, he would like to wait with his leukocytosis and questionable infection in the spine area. The patient prior to the present hospitalization has been independent with his mobility and self-care skills, not using an assistive devices, actually working on a regular basis. He walks with somewhat wide-based gait as per his . He used to have ankle foot braces, but he stopped using them. The patient had the weakness after he had first lumbar spine surgery done about 10 years ago. He had second spinal surgery done in February, and afterwards he developed infection, for which he had 6 weeks of IV antibiotics at the [facility]. The patient admits to back pain mainly while up sitting. He denies any radiation of pain to the extremities. He denies any numbness in his extremities. The patient apparently has been taking Flomax given by Dr. Hartman, but since Dr. Hartman left, he ran out of the medication about a week ago, and when he came this hospitalization, he needs to have indwelling Cordoba catheter put in as he is having some difficulty with urination. He denies any trouble with constipation. He denies any trouble swallowing. The patient had stairs to climb at home. He lives with his . He had support through family members. PHYSICAL EXAMINATION: Today revealed an elderly male. He is alert, oriented to place and person, follows commands appropriately, moves EVERETT FRENCH MD DR: JO/etrri JOB#: [id number] / [id number] PHILOMENA
[2017-07-29] MEDS: MORPHINE SULFATE 4 MG/ML DISP.SYRIN. IV PRN (01:45)
[2017-07-29 03:20] VITALS: BP 147/81
[2017-07-29] MEDS: MEROPENEM 1 GM in IV NORMAL SALINE 100ML 100 ML IV SCH (05:54)
[2017-07-29 06:02] LABS: BASO % 0 % (0-3); EOS % 1 % (0-3); HEMATOCRIT 30.9 % (39.0-53.0); HEMOGLOBIN 10.8 g/dL (13.0-17.5); LYMPH # 0.5 x10^3/uL (1.0-4.8); LYMPH % 4 % (24-48); MEAN CORPUSCULAR HEMOGLOBIN 29 pg (25-35); MEAN CORPUSCULAR HGB CONC 35 g/dL (31-37); MEAN CORPUSCULAR VOLUME 82 fL (79-100); MONO % 8 % (0-9); NEUT % 88 % (31-73); PLATELET COUNT 233 x10^3/uL (140-400); RED BLOOD COUNT 3.78 x10^6/uL (4.30-5.70); RED CELL DISTRIBUTION WIDTH 14.2 % (11.5-14.5); WHITE BLOOD COUNT 14.2 x10^3/uL (4.0-11.0)
[2017-07-29 06:26] LABS: CALCIUM 8.4 mg/dL (8.5-10.1); CREATININE 1.3 mg/dL (0.7-1.3); GFR 54.6; POTASSIUM 3.5 mmol/L (3.5-5.1)
[2017-07-29 07:00] VITALS: BP 145/72
[2017-07-29] MEDS: INSULIN ASPART 300 UNITS/3 ML INSULN.PEN SQ SCH ×3 (08:00→17:00)
[2017-07-29] MEDS: IPRATRPIUM/ALBUTEROL 0.5/2.5MG 3 ML NEBU. NEB SCH ×4 (08:15→19:40)
--- NOTE | 2017-07-29 08:26 | PDOC ---
Infectious Disease Note Subjective Subjective Doing ok. Has some back pain Supplemental O2 Nursing reporting restless night and confusion ROS ROS GEN: Denies fevers, chills, sweats HEENT: Denies blurred vision, sore throat CV: Denies chest pain RESP: Denies shortness of air, cough GI: Denies n/v/d NEURO: Denies dizziness MSK: Denies weakness, joint pain/swelling Vital Sign Vital Signs Vital Signs Date Time Temp Pulse Resp B/P (MAP) Pulse Ox O2 Delivery O2 Flow Rate FiO2 07/29/17 07:00 97.9 85 18 145/72 (96) 90 Nasal Cannula 4.0 97.9 Physical Exam PHYSICAL EXAM GENERAL: NAD, Alert HEENT: PERRL, OC/OP - clear NECK: Supple, no JVD, no LN LUNGS: Clear HEART: S1S2, no gallop, no murmur ABD: Soft, NT, no organomegaly, no rebound, distended some Ortiz EXT: No edema, no cyanosis PRICING COORDINATOR: Alert, oriented x 3, no focal neurologic deficit SKIN: No rash IV: ok Labs Lab Laboratory Tests Test 07/28/17 12:43 07/28/17 17:03 07/28/17 20:32 07/29/17 04:25 Glucose (Fingerstick) 87 mg/dL (70-99) 150 mg/dL (70-99) 144 mg/dL (70-99) White Blood Count 14.2 x10^3/uL (4.0-11.0) Red Blood Count 3.78 x10^6/uL (4.30-5.70) Hemoglobin 10.8 g/dL (13.0-17.5) Hematocrit 30.9 % (39.0-53.0) Mean Corpuscular Volume 82 fL (79-100) Mean Corpuscular Hemoglobin 29 pg (25-35) Mean Corpuscular Hemoglobin Concent 35 g/dL (31-37) Red Cell Distribution Width 14.2 % (11.5-14.5) Platelet Count 233 x10^3/uL (140-400) Neutrophils (%) (Auto) 88 % (31-73) Lymphocytes (%) (Auto) 4 % (24-48) Monocytes (%) (Auto) 8 % (0-9) Eosinophils (%) (Auto) 1 % (0-3) Basophils (%) (Auto) 0 % (0-3) Neutrophils # (Auto) 12.4 x10^3uL (1.8-7.7) Lymphocytes # (Auto) 0.5 x10^3/uL (1.0-4.8) Monocytes # (Auto) 1.2 x10^3/uL (0.0-1.1) Eosinophils # (Auto) 0.1 x10^3/uL (0.0-0.7) Basophils # (Auto) 0.0 x10^3/uL (0.0-0.2) Sodium Level 132 mmol/L (136-145) Potassium Level 3.5 mmol/L (3.5-5.1) Chloride Level 95 mmol/L (98-107) Carbon Dioxide Level 26 mmol/L (21-32) Anion Gap 11 (6-14) Blood Urea Nitrogen 30 mg/dL (8-26) Creatinine 1.3 mg/dL (0.7-1.3) Estimated GFR (Cockcroft-Gault) 54.6 Glucose Level 154 mg/dL (70-99) Calcium Level 8.4 mg/dL (8.5-10.1) Test 07/29/17 07:11 Glucose (Fingerstick) 138 mg/dL (70-99) Objective Assessment Staph aureus (MSSA ID'd 07/28 afternoon. Vanc d/cd) bacteremia, POA, 07/25. ECHO without gross valvular disease 07/28 Fever ? infection vs cardiac event. - better Leukocytosis - mild increase. ? reactive Encephalopathy - ? illness vs meds Urinary retention - ortiz placed 07/27 Elevated Troponin/CK- NSTEMI Back pain and h/o MSSA infection. s/p fall prior to admit now with fluid collection on MRI. Reviewed Dr. Gu's note PCN allergy - tolerated Cefazolin Hyponatremia - better Plan Plan of Care Repeat blood cult pending from 07/28 am. If neg for 48 to 72 hours can have cardiac cath if not emergently needed prior to that D/c Meropenem. unlikely cause of Encephalopathy but possible Begin Cefazolin Miralax Monitor renal function, WBC and temp D/w JANEE HSIEH MD Jul 29, 2017 08:26
--- NOTE | 2017-07-29 09:54 | PDOC ---
PROGRESS NOTES Subjective Subjective He admits some back pain. Objective Objective Vital Signs Date Time Temp Pulse Resp B/P (MAP) Pulse Ox O2 Delivery O2 Flow Rate FiO2 07/29/17 08:19 92 Nasal Cannula 5.0 07/29/17 07:00 97.9 85 18 145/72 (96) 97.9 Physical Exam Physical Exam He is awake and continues with cognitive deficits and he remains independent with bed mobility,transfers and walking with roller walker without any increased back pain. Plan Plan of Care To await speech pathology evaluation about his cognitive deficits and I think his hypoxemia is responsible for his memory problems.I did not see any need for in [facility] program unless if he needs continued antibiotics by IV,to SNF. Comment Review of Relevant I have reviewed the following items kyler (where applicable) has been applied. Labs Laboratory Tests Test 07/27/17 11:53 07/27/17 13:41 07/27/17 16:55 07/27/17 21:30 Glucose (Fingerstick) 177 mg/dL (70-99) 173 mg/dL (70-99) Lactic Acid Level 1.9 mmol/L (0.4-2.0) Phosphorus Level 3.8 mg/dL (2.6-4.7) Creatine Kinase 1159 U/L (39-308) Vancomycin Level Trough 23.4 mcg/mL (10.0-20.0) Vancomycin Last Dose Date 07/27/17 Vancomycin Last Dose Time 1000 Test 07/28/17 04:10 07/28/17 04:17 07/28/17 07:36 07/28/17 08:13 White Blood Count 11.4 x10^3/uL (4.0-11.0) Red Blood Count 3.51 x10^6/uL (4.30-5.70) Hemoglobin 9.9 g/dL (13.0-17.5) Hematocrit 29.2 % (39.0-53.0) Mean Corpuscular Volume 83 fL (79-100) Mean Corpuscular Hemoglobin 28 pg (25-35) Mean Corpuscular Hemoglobin Concent 34 g/dL (31-37) Red Cell Distribution Width 14.1 % (11.5-14.5) Platelet Count 200 x10^3/uL (140-400) Neutrophils (%) (Auto) 83 % (31-73) Lymphocytes (%) (Auto) 5 % (24-48) Monocytes (%) (Auto) 12 % (0-9) Eosinophils (%) (Auto) 0 % (0-3) Basophils (%) (Auto) 0 % (0-3) Neutrophils # (Auto) 9.4 x10^3uL (1.8-7.7) Lymphocytes # (Auto) 0.6 x10^3/uL (1.0-4.8) Monocytes # (Auto) 1.3 x10^3/uL (0.0-1.1) Eosinophils # (Auto) 0.0 x10^3/uL (0.0-0.7) Basophils # (Auto) 0.0 x10^3/uL (0.0-0.2) Sodium Level 128 mmol/L (136-145) Potassium Level 3.9 mmol/L (3.5-5.1) Chloride Level 93 mmol/L (98-107) Carbon Dioxide Level 24 mmol/L (21-32) Anion Gap 11 (6-14) Blood Urea Nitrogen 29 mg/dL (8-26) Creatinine 1.3 mg/dL (0.7-1.3) Estimated GFR (Cockcroft-Gault) 54.6 Glucose Level 132 mg/dL (70-99) Calcium Level 8.4 mg/dL (8.5-10.1) Troponin I Quantitative 5.045 ng/mL (0.000-0.055) O2 Saturation 97 % (92-99) Arterial Blood pH 7.45 (7.35-7.45) Arterial Blood pCO2 at Patient Temp 30 mmHg (35-46) Arterial Blood pO2 at Patient Temp 99 mmHg (65-108) Arterial Blood HCO3 20 mmol/L (21-28) Arterial Blood Base Excess -3 mmol/L (-3-3) FiO2 60 Glucose (Fingerstick) 131 mg/dL (70-99) Test 07/28/17 12:43 07/28/17 17:03 07/28/17 20:32 07/29/17 04:25 Glucose (Fingerstick) 87 mg/dL (70-99) 150 mg/dL (70-99) 144 mg/dL (70-99) White Blood Count 14.2 x10^3/uL (4.0-11.0) Red Blood Count 3.78 x10^6/uL (4.30-5.70) Hemoglobin 10.8 g/dL (13.0-17.5) Hematocrit 30.9 % (39.0-53.0) Mean Corpuscular Volume 82 fL (79-100) Mean Corpuscular Hemoglobin 29 pg (25-35) Mean Corpuscular Hemoglobin Concent 35 g/dL (31-37) Red Cell Distribution Width 14.2 % (11.5-14.5) Platelet Count 233 x10^3/uL (140-400) Neutrophils (%) (Auto) 88 % (31-73) Lymphocytes (%) (Auto) 4 % (24-48) Monocytes (%) (Auto) 8 % (0-9) Eosinophils (%) (Auto) 1 % (0-3) Basophils (%) (Auto) 0 % (0-3) Neutrophils # (Auto) 12.4 x10^3uL (1.8-7.7) Lymphocytes # (Auto) 0.5 x10^3/uL (1.0-4.8) Monocytes # (Auto) 1.2 x10^3/uL (0.0-1.1) Eosinophils # (Auto) 0.1 x10^3/uL (0.0-0.7) Basophils # (Auto) 0.0 x10^3/uL (0.0-0.2) Sodium Level 132 mmol/L (136-145) Potassium Level 3.5 mmol/L (3.5-5.1) Chloride Level 95 mmol/L (98-107) Carbon Dioxide Level 26 mmol/L (21-32) Anion Gap 11 (6-14) Blood Urea Nitrogen 30 mg/dL (8-26) Creatinine 1.3 mg/dL (0.7-1.3) Estimated GFR (Cockcroft-Gault) 54.6 Glucose Level 154 mg/dL (70-99) Calcium Level 8.4 mg/dL (8.5-10.1) Test 07/29/17 07:11 Glucose (Fingerstick) 138 mg/dL (70-99) Laboratory Tests Test 07/28/17 12:43 07/28/17 17:03 07/28/17 20:32 07/29/17 04:25 Glucose (Fingerstick) 87 mg/dL (70-99) 150 mg/dL (70-99) 144 mg/dL (70-99) White Blood Count 14.2 x10^3/uL (4.0-11.0) Red Blood Count 3.78 x10^6/uL (4.30-5.70) Hemoglobin 10.8 g/dL (13.0-17.5) Hematocrit 30.9 % (39.0-53.0) Mean Corpuscular Volume 82 fL (79-100) Mean Corpuscular Hemoglobin 29 pg (25-35) Mean Corpuscular Hemoglobin Concent 35 g/dL (31-37) Red Cell Distribution Width 14.2 % (11.5-14.5) Platelet Count 233 x10^3/uL (140-400) Neutrophils (%) (Auto) 88 % (31-73) Lymphocytes (%) (Auto) 4 % (24-48) Monocytes (%) (Auto) 8 % (0-9) Eosinophils (%) (Auto) 1 % (0-3) Basophils (%) (Auto) 0 % (0-3) Neutrophils # (Auto) 12.4 x10^3uL (1.8-7.7) Lymphocytes # (Auto) 0.5 x10^3/uL (1.0-4.8) Monocytes # (Auto) 1.2 x10^3/uL (0.0-1.1) Eosinophils # (Auto) 0.1 x10^3/uL (0.0-0.7) Basophils # (Auto) 0.0 x10^3/uL (0.0-0.2) Sodium Level 132 mmol/L (136-145) Potassium Level 3.5 mmol/L (3.5-5.1) Chloride Level 95 mmol/L (98-107) Carbon Dioxide Level 26 mmol/L (21-32) Anion Gap 11 (6-14) Blood Urea Nitrogen 30 mg/dL (8-26) Creatinine 1.3 mg/dL (0.7-1.3) Estimated GFR (Cockcroft-Gault) 54.6 Glucose Level 154 mg/dL (70-99) Calcium Level 8.4 mg/dL (8.5-10.1) Test 07/29/17 07:11 Glucose (Fingerstick) 138 mg/dL (70-99) Microbiology 07/28/17 Blood Culture - Preliminary, Resulted NO GROWTH AFTER 1 DAY Medications Current Medications Citalopram Hydrobromide (CeleXA) 20 mg BID PO Last administered on 07/28/17 21 :53; Start 07/25/17 at 21:00 Docusate Sodium (Colace) 100 mg BID PO Last administered on 07/28/17 21:52; Start 07/25/17 at 21:00 Gabapentin (Neurontin) 100 mg TID PO Last administered on 07/28/17 21:52; Start 07/25/17 at 21:00 Hydrochlorothiazide (Hydrodiuril) 25 mg DAILY PO Last administered on 08:30; Start 07/26/17 at 09:00; Stop 07/27/17 at 14:23; Status DC Acetaminophen/ Hydrocodone Bitart (Lortab 7.5/325) 1 tab PRN Q6HRS PRN PO PAIN Last administered on 07/27/17 07:40; Start 07/25/17 at 19:45 Metformin HCl (Glucophage) 1,000 mg DAILY08 PO Last administered on 07/28/17 08:11; Start 07/26/17 at 08:00 Metformin HCl (Glucophage) 500 mg DAILYBFRSUP PO Last administered on 18:39; Start 07/26/17 at 17:00 Methocarbamol (Robaxin) 750 mg TID PO Last administered on 07/26/17 08:38; Start 07/25/17 at 21:00; Stop 07/26/17 at 18:44; Status DC Potassium Chloride (Klor-Con) 10 meq DAILYWBKFT PO Last administered on 08:33; Start 07/26/17 at 08:00; Stop 07/26/17 at 08:55; Status DC Tamsulosin HCl (Flomax) 0.4 mg DAILY PO Last administered on 07/28/17 08:11; Start 07/26/17 at 09:00 Diclofenac Sodium (Voltaren) 75 mg BID PO Last administered on 07/28/17 09:04 ; Start 07/25/17 at 21:00; Stop 07/28/17 at 19:45; Status DC Fish Oil (Fish Oil) 1,000 mg BID PO Last administered on 07/28/17 21:52; Start 07/25/17 at 21:00 Fluticasone Propionate (Flonase) 2 spray DAILY NS Last administered on 08:12; Start 07/26/17 at 09:00 Glimepiride (Amaryl) 0.5 mg DAILY PO Last administered on 07/28/17 08:11; Start 07/26/17 at 09:00 Non-Formulary Medication 1 each BID PO ; Start 07/25/17 at 21:00; Status UNV Losartan Potassium (Cozaar) 100 mg DAILY PO Last administered on 07/27/17 08: 29; Start 07/26/17 at 09:00 Atorvastatin Calcium (Lipitor) 5 mg QHS PO Last administered on 07/28/17 21:53 ; Start 07/25/17 at 21:00 Metoprolol Tartrate (Lopressor) 50 mg BID PO Last administered on 07/28/17 21: 53; Start 07/25/17 at 21:00 Multivitamins (Thera M Plus) 1 tab DAILY PO Last administered on 07/28/17 08: 11; Start 07/26/17 at 09:00 Nifedipine (Procardia Xl) 90 mg DAILY PO Last administered on 07/27/17 08:30; Start 07/26/17 at 09:00 Sodium Chloride 1,000 ml @ 1,000 mls/hr 1X ONCE IV Last administered on 21:56; Start 07/25/17 at 19:45; Stop 07/25/17 at 20:44; Status DC Potassium Chloride (Klor-Con) 40 meq 1X ONCE PO Last administered on 21:41; Start 07/25/17 at 19:45; Stop 07/25/17 at 19:48; Status DC Sodium Chloride 1,000 ml @ 100 mls/hr 1X ONCE IV Last administered on 21:53; Start 07/25/17 at 19:45; Stop 07/26/17 at 05:44; Status DC Insulin Aspart (NovoLOG) 0-7 UNITS TIDWMEALS SQ Last administered on 07/27/17 16:58; Start 07/26/17 at 08:00 Dextrose (Dextrose 50%-Water Syringe) 12.5 gm PRN Q15MIN PRN IV SEE COMMENTS; Start 07/25/17 at 20:00 Info (Do NOT chart on this placeholder) 0.5 each 1X ONCE MC ; Start 07/26/17 at 09:00; Stop 07/26/17 at 09:01; Status UNV Influenza Virus Vaccine Quadrival (Fluarix Quad 6280-1611 Syringe) 0.5 ml ONCE ONCE VAX IM Last administered on 07/28/17 09:31; Start 07/26/17 at 09:00; Stop 07/26/17 at 09:01; Status DC Albuterol/ Ipratropium (Duoneb) 3 ml RTQID NEB Last administered on 07/29/17 08:15; Start 07/26/17 at 08:00 Albuterol Sulfate (Ventolin Neb Soln) 2.5 mg PRN Q2HRS PRN NEB SHORTNESS OF BREATH Last administered on 07/26/17 02:00; Start 07/26/17 at 01:30 Enoxaparin Sodium (Lovenox 100mg Syringe) 100 mg 1X ONCE SQ Last administered on 07/26/17 02:08; Start 07/26/17 at 02:00; Stop 07/26/17 at 02:04; Status DC Heparin Sodium/ Dextrose 500 ml @ 0 mls/hr CONT PRN IV SEE I/O RECORD Last administered on 07/26/17 03:42; Start 07/26/17 at 03:30; Stop 07/28/17 at 08:16 ; Status DC Heparin Sodium (Porcine) (Heparin Sodium) 2,450 unit PRN Q6HRS PRN IV FOR UFH LEVEL LESS THAN 0.2; Start 07/26/17 at 03:30; Stop 07/28/17 at 08:16; Status DC Info (Anti-Coagulation Monitoring By Pharmacy) 1 each PRN DAILY PRN MC SEE COMMENTS Last administered on 07/27/17 10:04; Start 07/26/17 at 03:30; Stop at 08:16; Status DC Vancomycin HCl (Vanco Per Pharmacy) 1 each PRN DAILY PRN MC SEE COMMENTS Last administered on 07/28/17 00:18; Start 07/26/17 at 08:15; Stop 07/28/17 at 12:53 ; Status DC Meropenem 1 gm/ Sodium Chloride 100 ml @ 200 mls/hr Q8HRS IV Last administered on 07/29/17 05:54; Start 07/26/17 at 08:30; Stop 07/29/17 at 08:23 ; Status DC Vancomycin HCl 2 gm/Sodium Chloride 500 ml @ 250 mls/hr 1X ONCE IV Last administered on 07/26/17 09:27; Start 07/26/17 at 08:30; Stop 07/26/17 at 10:29 ; Status DC Potassium Chloride (Klor-Con) 40 meq DAILYWBKFT PO Last administered on 08:11; Start 07/26/17 at 09:30 Vancomycin HCl 1.25 gm/Sodium Chloride 250 ml @ 167 mls/hr Q12H IV Last administered on 07/27/17 21:37; Start 07/26/17 at 22:00; Stop 07/28/17 at 01:00 ; Status DC Vancomycin HCl 1 each 1X ONCE MC Last administered on 07/27/17 21:30; Start 07/27/17 at 21:30; Stop 07/27/17 at 21:31; Status DC Furosemide (Lasix) 40 mg 1X ONCE IVP Last administered on 07/26/17 11:47; Start 07/26/17 at 11:30; Stop 07/26/17 at 11:31; Status DC Gadobutrol (Gadavist) 10 mmol 1X ONCE IV Last administered on 07/26/17 16:19 ; Start 07/26/17 at 16:15; Stop 07/26/17 at 16:16; Status DC Morphine Sulfate 3 mg PRN Q3HRS PRN IV PAIN Last administered on 07/29/17 01: 45; Start 07/27/17 at 08:30 Morphine Sulfate 4 mg PRN Q3HRS PRN IV PAIN; Start 07/27/17 at 08:30 Morphine Sulfate 5 mg PRN Q3HRS PRN IV PAIN; Start 07/27/17 at 08:45 Gadobutrol (Gadavist) 9 mmol 1X ONCE IV Last administered on 07/27/17 10:37; Start 07/27/17 at 10:15; Stop 07/27/17 at 10:16; Status DC Furosemide (Lasix) 40 mg 1X ONCE IVP Last administered on 07/27/17t 14:12; Start 07/27/17 at 14:00; Stop 07/27/17 at 14:01; Status DC Vancomycin HCl 1.5 gm/Sodium Chloride 500 ml @ 250 mls/hr Q24H IV ; Start 07/28 at 22:00; Stop 07/28/17 at 22:00; Status DC Vancomycin HCl 1 each 1X ONCE MC ; Start 07/30/17 at 21:30; Stop 07/30/17 at 21 :30; Status DC Acetaminophen (Tylenol) 650 mg PRN Q6HRS PRN PO FEVER > 100.5'F; Start at 05:30 Tamsulosin HCl (Flomax) 0.4 mg QHS PO ; Start 07/28/17 at 21:00; Status UNV Cefazolin Sodium/ Dextrose 50 ml @ 100 mls/hr Q8HRS IV ; Start 07/29/17 at 08: 30 Polyethylene Glycol (miraLAX PACKET) 17 gm DAILY PO ; Start 07/29/17 at 09:00 Active Scripts Active Colace (Docusate Sodium) 100 Mg Capsule 100 Mg PO BID 60 Days Methocarbamol 750 Mg Tablet 750 Mg PO TID 60 Days Hydrocodone-Apap 7.5-325 (Hydrocodone Bit/Acetaminophen) 1 Each Tablet 1 Tab PO PRN Q6HRS PRN 60 Days Reported Tamsulosin Hcl 0.4 Mg Cap.er.24h 0.4 Mg PO DAILY Metformin Hcl 500 Mg Tablet 500 Mg PO DAILYBFRSUP Gabapentin 100 Mg Capsule 100 Mg PO TID Lovastatin 20 Mg Tablet 1 Tab PO DAILY Szkepkphep-Twmpvbmbeik-Tcg Tab (Gluc/Jonah-Msm#2/C/D3/Vidal/Born) 1 Each Tablet 1 Each PO BID Glimepiride 1 Mg Tablet 0.5 Tab PO DAILY Losartan Potassium 100 Mg Tablet 100 Mg PO DAILY Diclofenac Sodium 75 Mg Tablet.dr 75 Mg PO BID Nitrostat (Nitroglycerin) 0.4 Mg Tab.subl 0.4 Mg SL PRN Viagra (Sildenafil Citrate) 100 Mg Tablet 100 Mg PO PRN Potassium Chloride 10 Meq Tablet.er 10 Meq PO DAILY Metformin Hcl 1,000 Mg Tablet 1,000 Mg PO DAILY08 Hydrochlorothiazide Tablet (Hydrochlorothiazide) 25 Mg Tablet 25 Mg PO DAILY Metoprolol Tartrate 100 Mg Tablet 50 Mg PO BID Flovent 50MCG Diskus (Fluticasone Propionate) 50 Mcg Disk.w.dev 50 Mcg IH DAILY Citalopram Hbr (Citalopram Hydrobromide) 20 Mg Tablet 20 Mg PO BID Nifedipine Er (Nifedipine) 90 Mg Tab.er.24 90 Mg PO DAILY Multivitamins (Multivitamin) 1 Each Tablet 1 Each PO DAILY Fish Oil 1,200 Mg Fish Oil (Fish Oil/Dha/Epa) 1 Each Capsule 1 Each PO BID Vitals/I & O Vital Sign - Last 24 Hours 07/28/17 07/28/17 07/28/17 07/28/17 10:00 11:00 11:29 12:00 Temp 98.9 98.9 Pulse 80 99 91 Resp 19 15 22 B/P (MAP) 117/60 (79) 164/79 (107) 125/59 (81) Pulse Ox 91 95 96 93 O2 Delivery Nasal Cannula Nasal Cannula Nasal Cannula Nasal Cannula O2 Flow Rate 2.0 4.0 2.0 4.0 07/28/17 07/28/17 07/28/17 07/28/17 12:00 13:00 14:00 15:00 Pulse 87 87 85 Resp 20 18 31 B/P (MAP) 122/59 (80) 133/67 (89) 133/57 (82) Pulse Ox 94 93 92 O2 Delivery Nasal Cannula Room Air Nasal Cannula Nasal Cannula O2 Flow Rate 4.0 4.0 4.0 07/28/17 07/28/17 07/28/17 07/28/17 15:09 19:25 19:30 19:35 Temp 99.5 99.2 99.2 99.5 99.2 99.2 Pulse 89 91 91 Resp 18 20 20 B/P (MAP) 131/69 (89) 117/58 (77) 121/56 (77) Pulse Ox 92 92 89 90 O2 Delivery Nasal Cannula Nasal Cannula Nasal Cannula Nasal Cannula O2 Flow Rate 2.0 3.0 3.0 3.0 07/28/17 07/28/17 07/28/17 07/28/17 20:00 21:17 21:53 23:15 Temp 99.0 99.0 Pulse 91 84 Resp 20 B/P (MAP) 121/56 141/77 (98) Pulse Ox 93 92 O2 Delivery Bi-pap Nasal Cannula BiPAP/CPAP O2 Flow Rate 5.0 07/29/17 07/29/17 07/29/17 07/29/17 01:07 01:45 02:15 03:20 Temp 98.5 98.5 Pulse 86 Resp 20 B/P (MAP) 147/81 (103) Pulse Ox 91 96 O2 Delivery BiPAP/CPAP BiPAP/CPAP BiPAP/CPAP BiPAP/CPAP 07/29/17 07/29/17 07:00 08:19 Temp 97.9 97.9 Pulse 85 Resp 18 B/P (MAP) 145/72 (96) Pulse Ox 90 92 O2 Delivery Nasal Cannula Nasal Cannula O2 Flow Rate 4.0 5.0 EVERETT FRENCH MD Jul 29, 2017 09:54
[2017-07-29] MEDS: OMEGA-3 FATTY ACIDS/FISH OIL 1,000 MG CAPSULE. PO SCH ×2 (10:26→20:01)
[2017-07-29] MEDS: LOSARTAN POTASSIUM 50 MG TABLET. PO SCH (10:27)
[2017-07-29] MEDS: MULTIVITAMIN with MINERAL TABLET. PO SCH (10:27)
[2017-07-29] MEDS: DOCUSATE SODIUM 100 MG CAPSULE. PO SCH ×2 (10:27→20:02)
[2017-07-29] MEDS: GLIMEPIRIDE 2 MG TABLET. PO SCH (10:28)
[2017-07-29] MEDS: TAMSULOSIN 0.4 MG CAP.ER.24H. PO SCH (10:28)
[2017-07-29] MEDS: GABAPENTIN 100 MG CAPSULE. PO SCH ×3 (10:28→20:02)
[2017-07-29] MEDS: METOPROLOL TART IMMED RELEASE 50 MG TABLET. PO SCH ×2 (10:29→20:03)
[2017-07-29] MEDS: CITALOPRAM 20 MG TABLET. PO SCH ×2 (10:29→20:02)
[2017-07-29] MEDS: POTASSIUM CHLORIDE 20 MEQ TABLET.ER. PO SCH (10:30)
[2017-07-29] MEDS: POLYETHYLENE GLYCOL 3350 17 GM PACKET. PO SCH (10:30)
[2017-07-29] MEDS: FLUTICASONE 50MCG/NASAL SPRAY 16GM BOTTLE. NS SCH (10:31)
[2017-07-29 11:00] VITALS: BP 153/77
--- NOTE | 2017-07-29 11:16 | PDOC ---
PROGRESS NOTES Chief Complaint Chief Complaint Assessment/Plan 1. BAck pain, recent back sx/Sepsis, complicated back sx bec of sepsis, FEVERS, SIRS POA, likely infectious no organ dysfcn yet 1. TRansient amnesia, Oddities in behavior, forgetfullness - could be beginning dementia? He lacks [employer] infectious sxs like headache, no nuchal rigidity no fevers, no white ct. CT head neg, Check MRI for any acute pathology, Add esr. get neuro. 2. HTN, DM2, dyslipidemia - depression NOS - all chronic stable 3. Polypharmacy - on 22 home meds 4. Geriatric, fall risk 5. FEVERS, LEUKOCYTOSIS, SIRS < POA 6. Hip pain, shoulder pain, back pain 7. Recent multiple non injury falls 8. NSTEMI 9. HYpoxic respi failure with neg dopplers and low prob VQ History of Present Illness History of Present Illness Patient sitting up in bed eating breakfast. present in room. Patient had intention tremor as he drank his coffee. confirmed patient shakes sometimes but confirmed this amount of movement was unusual for patient. Gave a business card and confirmed that cardio, ID, pulm, Neuro, and PMR were consulted on case. Vitals Vitals Vital Signs Date Time Temp Pulse Resp B/P (MAP) Pulse Ox O2 Delivery O2 Flow Rate FiO2 07/29/17 10:29 85 145/72 07/29/17 08:19 92 Nasal Cannula 5.0 07/29/17 07:00 97.9 18 97.9 Physical Exam Physical Exam Patient awake and drinking coffee. Patient had noticeable tremor as he reaches out to the tray. Patient has no SOA and answers questions in complete appropriate sentences. General: Alert, Oriented X3, Cooperative, No acute distress, Other Heart: Regular rate, Normal S1, Normal S2 Lungs: Clear Abdomen: Normal bowel sounds, Soft Extremities: No clubbing, No cyanosis, No edema Skin: No rashes, No breakdown, No significant lesion Labs LABS Laboratory Tests Test 07/28/17 12:43 07/28/17 17:03 07/28/17 20:32 07/29/17 04:25 Glucose (Fingerstick) 87 mg/dL (70-99) 150 mg/dL (70-99) 144 mg/dL (70-99) White Blood Count 14.2 x10^3/uL (4.0-11.0) Red Blood Count 3.78 x10^6/uL (4.30-5.70) Hemoglobin 10.8 g/dL (13.0-17.5) Hematocrit 30.9 % (39.0-53.0) Mean Corpuscular Volume 82 fL (79-100) Mean Corpuscular Hemoglobin 29 pg (25-35) Mean Corpuscular Hemoglobin Concent 35 g/dL (31-37) Red Cell Distribution Width 14.2 % (11.5-14.5) Platelet Count 233 x10^3/uL (140-400) Neutrophils (%) (Auto) 88 % (31-73) Lymphocytes (%) (Auto) 4 % (24-48) Monocytes (%) (Auto) 8 % (0-9) Eosinophils (%) (Auto) 1 % (0-3) Basophils (%) (Auto) 0 % (0-3) Neutrophils # (Auto) 12.4 x10^3uL (1.8-7.7) Lymphocytes # (Auto) 0.5 x10^3/uL (1.0-4.8) Monocytes # (Auto) 1.2 x10^3/uL (0.0-1.1) Eosinophils # (Auto) 0.1 x10^3/uL (0.0-0.7) Basophils # (Auto) 0.0 x10^3/uL (0.0-0.2) Sodium Level 132 mmol/L (136-145) Potassium Level 3.5 mmol/L (3.5-5.1) Chloride Level 95 mmol/L (98-107) Carbon Dioxide Level 26 mmol/L (21-32) Anion Gap 11 (6-14) Blood Urea Nitrogen 30 mg/dL (8-26) Creatinine 1.3 mg/dL (0.7-1.3) Estimated GFR (Cockcroft-Gault) 54.6 Glucose Level 154 mg/dL (70-99) Calcium Level 8.4 mg/dL (8.5-10.1) Test 07/29/17 07:11 Glucose (Fingerstick) 138 mg/dL (70-99) Review of Systems Review of Systems Patient is tired. Patient is hungry. Assessment and Plan Assessmemt and Plan Assessment: 1. BAck pain, recent back sx/Sepsis, complicated back sx bec of sepsis, FEVERS, SIRS POA, likely infectious no organ dysfcn yet 1. TRansient amnesia, Oddities in behavior, forgetfullness - could be beginning dementia? He lacks [employer] infectious sxs like headache, no nuchal rigidity no fevers, no white ct. CT head neg, Check MRI for any acute pathology, Add esr. get neuro. 2. HTN, DM2, dyslipidemia - depression NOS - all chronic stable 3. Polypharmacy - on 22 home meds 4. Geriatric, fall risk 5. FEVERS, LEUKOCYTOSIS, SIRS < POA 6. Hip pain, shoulder pain, back pain 7. Recent multiple non injury falls 8. NSTEMI 9. HYpoxic respi failure with neg dopplers and low prob VQ Plan: 1. Consult SW for SNU eval 2. Continue home meds 3. Continue antibiotics 4. Recheck labs 5. appreciate subspecialist input. Problems: Comment Review of Relevant I have reviewed the following items kyler (where applicable) has been applied. Labs Laboratory Tests Test 07/27/17 11:53 07/27/17 13:41 07/27/17 16:55 07/27/17 21:30 Glucose (Fingerstick) 177 mg/dL (70-99) 173 mg/dL (70-99) Lactic Acid Level 1.9 mmol/L (0.4-2.0) Phosphorus Level 3.8 mg/dL (2.6-4.7) Creatine Kinase 1159 U/L (39-308) Vancomycin Level Trough 23.4 mcg/mL (10.0-20.0) Vancomycin Last Dose Date 07/27/17 Vancomycin Last Dose Time 1000 Test 07/28/17 04:10 07/28/17 04:17 07/28/17 07:36 07/28/17 08:13 White Blood Count 11.4 x10^3/uL (4.0-11.0) Red Blood Count 3.51 x10^6/uL (4.30-5.70) Hemoglobin 9.9 g/dL (13.0-17.5) Hematocrit 29.2 % (39.0-53.0) Mean Corpuscular Volume 83 fL (79-100) Mean Corpuscular Hemoglobin 28 pg (25-35) Mean Corpuscular Hemoglobin Concent 34 g/dL (31-37) Red Cell Distribution Width 14.1 % (11.5-14.5) Platelet Count 200 x10^3/uL (140-400) Neutrophils (%) (Auto) 83 % (31-73) Lymphocytes (%) (Auto) 5 % (24-48) Monocytes (%) (Auto) 12 % (0-9) Eosinophils (%) (Auto) 0 % (0-3) Basophils (%) (Auto) 0 % (0-3) Neutrophils # (Auto) 9.4 x10^3uL (1.8-7.7) Lymphocytes # (Auto) 0.6 x10^3/uL (1.0-4.8) Monocytes # (Auto) 1.3 x10^3/uL (0.0-1.1) Eosinophils # (Auto) 0.0 x10^3/uL (0.0-0.7) Basophils # (Auto) 0.0 x10^3/uL (0.0-0.2) Sodium Level 128 mmol/L (136-145) Potassium Level 3.9 mmol/L (3.5-5.1) Chloride Level 93 mmol/L (98-107) Carbon Dioxide Level 24 mmol/L (21-32) Anion Gap 11 (6-14) Blood Urea Nitrogen 29 mg/dL (8-26) Creatinine 1.3 mg/dL (0.7-1.3) Estimated GFR (Cockcroft-Gault) 54.6 Glucose Level 132 mg/dL (70-99) Calcium Level 8.4 mg/dL (8.5-10.1) Troponin I Quantitative 5.045 ng/mL (0.000-0.055) O2 Saturation 97 % (92-99) Arterial Blood pH 7.45 (7.35-7.45) Arterial Blood pCO2 at Patient Temp 30 mmHg (35-46) Arterial Blood pO2 at Patient Temp 99 mmHg (65-108) Arterial Blood HCO3 20 mmol/L (21-28) Arterial Blood Base Excess -3 mmol/L (-3-3) FiO2 60 Glucose (Fingerstick) 131 mg/dL (70-99) Test 07/28/17 12:43 07/28/17 17:03 07/28/17 20:32 07/29/17 04:25 Glucose (Fingerstick) 87 mg/dL (70-99) 150 mg/dL (70-99) 144 mg/dL (70-99) White Blood Count 14.2 x10^3/uL (4.0-11.0) Red Blood Count 3.78 x10^6/uL (4.30-5.70) Hemoglobin 10.8 g/dL (13.0-17.5) Hematocrit 30.9 % (39.0-53.0) Mean Corpuscular Volume 82 fL (79-100) Mean Corpuscular Hemoglobin 29 pg (25-35) Mean Corpuscular Hemoglobin Concent 35 g/dL (31-37) Red Cell Distribution Width 14.2 % (11.5-14.5) Platelet Count 233 x10^3/uL (140-400) Neutrophils (%) (Auto) 88 % (31-73) Lymphocytes (%) (Auto) 4 % (24-48) Monocytes (%) (Auto) 8 % (0-9) Eosinophils (%) (Auto) 1 % (0-3) Basophils (%) (Auto) 0 % (0-3) Neutrophils # (Auto) 12.4 x10^3uL (1.8-7.7) Lymphocytes # (Auto) 0.5 x10^3/uL (1.0-4.8) Monocytes # (Auto) 1.2 x10^3/uL (0.0-1.1) Eosinophils # (Auto) 0.1 x10^3/uL (0.0-0.7) Basophils # (Auto) 0.0 x10^3/uL (0.0-0.2) Sodium Level 132 mmol/L (136-145) Potassium Level 3.5 mmol/L (3.5-5.1) Chloride Level 95 mmol/L (98-107) Carbon Dioxide Level 26 mmol/L (21-32) Anion Gap 11 (6-14) Blood Urea Nitrogen 30 mg/dL (8-26) Creatinine 1.3 mg/dL (0.7-1.3) Estimated GFR (Cockcroft-Gault) 54.6 Glucose Level 154 mg/dL (70-99) Calcium Level 8.4 mg/dL (8.5-10.1) Test 07/29/17 07:11 Glucose (Fingerstick) 138 mg/dL (70-99) Laboratory Tests Test 07/28/17 12:43 07/28/17 17:03 07/28/17 20:32 07/29/17 04:25 Glucose (Fingerstick) 87 mg/dL (70-99) 150 mg/dL (70-99) 144 mg/dL (70-99) White Blood Count 14.2 x10^3/uL (4.0-11.0) Red Blood Count 3.78 x10^6/uL (4.30-5.70) Hemoglobin 10.8 g/dL (13.0-17.5) Hematocrit 30.9 % (39.0-53.0) Mean Corpuscular Volume 82 fL (79-100) Mean Corpuscular Hemoglobin 29 pg (25-35) Mean Corpuscular Hemoglobin Concent 35 g/dL (31-37) Red Cell Distribution Width 14.2 % (11.5-14.5) Platelet Count 233 x10^3/uL (140-400) Neutrophils (%) (Auto) 88 % (31-73) Lymphocytes (%) (Auto) 4 % (24-48) Monocytes (%) (Auto) 8 % (0-9) Eosinophils (%) (Auto) 1 % (0-3) Basophils (%) (Auto) 0 % (0-3) Neutrophils # (Auto) 12.4 x10^3uL (1.8-7.7) Lymphocytes # (Auto) 0.5 x10^3/uL (1.0-4.8) Monocytes # (Auto) 1.2 x10^3/uL (0.0-1.1) Eosinophils # (Auto) 0.1 x10^3/uL (0.0-0.7) Basophils # (Auto) 0.0 x10^3/uL (0.0-0.2) Sodium Level 132 mmol/L (136-145) Potassium Level 3.5 mmol/L (3.5-5.1) Chloride Level 95 mmol/L (98-107) Carbon Dioxide Level 26 mmol/L (21-32) Anion Gap 11 (6-14) Blood Urea Nitrogen 30 mg/dL (8-26) Creatinine 1.3 mg/dL (0.7-1.3) Estimated GFR (Cockcroft-Gault) 54.6 Glucose Level 154 mg/dL (70-99) Calcium Level 8.4 mg/dL (8.5-10.1) Test 07/29/17 07:11 Glucose (Fingerstick) 138 mg/dL (70-99) Microbiology 07/28/17 Blood Culture - Preliminary, Resulted NO GROWTH AFTER 1 DAY Medications Current Medications Citalopram Hydrobromide (CeleXA) 20 mg BID PO Last administered on 07/29/17 10 :29; Start 07/25/17 at 21:00 Docusate Sodium (Colace) 100 mg BID PO Last administered on 07/29/17 10:27; Start 07/25/17 at 21:00 Gabapentin (Neurontin) 100 mg TID PO Last administered on 07/29/17 10:28; Start 07/25/17 at 21:00 Hydrochlorothiazide (Hydrodiuril) 25 mg DAILY PO Last administered on 08:30; Start 07/26/17 at 09:00; Stop 07/27/17 at 14:23; Status DC Acetaminophen/ Hydrocodone Bitart (Lortab 7.5/325) 1 tab PRN Q6HRS PRN PO PAIN Last administered on 07/27/17 07:40; Start 07/25/17 at 19:45 Metformin HCl (Glucophage) 1,000 mg DAILY08 PO Last administered on 07/29/17 10:27; Start 07/26/17 at 08:00 Metformin HCl (Glucophage) 500 mg DAILYBFRSUP PO Last administered on 18:39; Start 07/26/17 at 17:00 Methocarbamol (Robaxin) 750 mg TID PO Last administered on 07/26/17 08:38; Start 07/25/17 at 21:00; Stop 07/26/17 at 18:44; Status DC Potassium Chloride (Klor-Con) 10 meq DAILYWBKFT PO Last administered on 08:33; Start 07/26/17 at 08:00; Stop 07/26/17 at 08:55; Status DC Tamsulosin HCl (Flomax) 0.4 mg DAILY PO Last administered on 07/29/17 10:28; Start 07/26/17 at 09:00 Diclofenac Sodium (Voltaren) 75 mg BID PO Last administered on 07/28/17 09:04 ; Start 07/25/17 at 21:00; Stop 07/28/17 at 19:45; Status DC Fish Oil (Fish Oil) 1,000 mg BID PO Last administered on 07/29/17 10:26; Start 07/25/17 at 21:00 Fluticasone Propionate (Flonase) 2 spray DAILY NS Last administered on 10:31; Start 07/26/17 at 09:00 Glimepiride (Amaryl) 0.5 mg DAILY PO Last administered on 07/29/17 10:28; Start 07/26/17 at 09:00 Non-Formulary Medication 1 each BID PO ; Start 07/25/17 at 21:00; Status UNV Losartan Potassium (Cozaar) 100 mg DAILY PO Last administered on 07/29/17 10: 27; Start 07/26/17 at 09:00 Atorvastatin Calcium (Lipitor) 5 mg QHS PO Last administered on 07/28/17 21:53 ; Start 07/25/17 at 21:00 Metoprolol Tartrate (Lopressor) 50 mg BID PO Last administered on 07/29/17 10: 29; Start 07/25/17 at 21:00 Multivitamins (Thera M Plus) 1 tab DAILY PO Last administered on 07/29/17 10: 27; Start 07/26/17 at 09:00 Nifedipine (Procardia Xl) 90 mg DAILY PO Last administered on 07/29/17 10:29; Start 07/26/17 at 09:00 Sodium Chloride 1,000 ml @ 1,000 mls/hr 1X ONCE IV Last administered on 21:56; Start 07/25/17 at 19:45; Stop 07/25/17 at 20:44; Status DC Potassium Chloride (Klor-Con) 40 meq 1X ONCE PO Last administered on 21:41; Start 07/25/17 at 19:45; Stop 07/25/17 at 19:48; Status DC Sodium Chloride 1,000 ml @ 100 mls/hr 1X ONCE IV Last administered on 21:53; Start 07/25/17 at 19:45; Stop 07/26/17 at 05:44; Status DC Insulin Aspart (NovoLOG) 0-7 UNITS TIDWMEALS SQ Last administered on 07/27/17 16:58; Start 07/26/17 at 08:00 Dextrose (Dextrose 50%-Water Syringe) 12.5 gm PRN Q15MIN PRN IV SEE COMMENTS; Start 07/25/17 at 20:00 Info (Do NOT chart on this placeholder) 0.5 each 1X ONCE MC ; Start 07/26/17 at 09:00; Stop 07/26/17 at 09:01; Status UNV Influenza Virus Vaccine Quadrival (Fluarix Quad [id number] Syringe) 0.5 ml ONCE ONCE VAX IM Last administered on 07/28/17 09:31; Start 07/26/17 at 09:00; Stop 07/26/17 at 09:01; Status DC Albuterol/ Ipratropium (Duoneb) 3 ml RTQID NEB Last administered on 07/29/17 08:15; Start 07/26/17 at 08:00 Albuterol Sulfate (Ventolin Neb Soln) 2.5 mg PRN Q2HRS PRN NEB SHORTNESS OF BREATH Last administered on 07/26/17 02:00; Start 07/26/17 at 01:30 Enoxaparin Sodium (Lovenox 100mg Syringe) 100 mg 1X ONCE SQ Last administered on 07/26/17 02:08; Start 07/26/17 at 02:00; Stop 07/26/17 at 02:04; Status DC Heparin Sodium/ Dextrose 500 ml @ 0 mls/hr CONT PRN IV SEE I/O RECORD Last administered on 07/26/17 03:42; Start 07/26/17 at 03:30; Stop 07/28/17 at 08:16 ; Status DC Heparin Sodium (Porcine) (Heparin Sodium) 2,450 unit PRN Q6HRS PRN IV FOR UFH LEVEL LESS THAN 0.2; Start 07/26/17 at 03:30; Stop 07/28/17 at 08:16; Status DC Info (Anti-Coagulation Monitoring By Pharmacy) 1 each PRN DAILY PRN MC SEE COMMENTS Last administered on 07/27/17 10:04; Start 07/26/17 at 03:30; Stop at 08:16; Status DC Vancomycin HCl (Vanco Per Pharmacy) 1 each PRN DAILY PRN MC SEE COMMENTS Last administered on 07/28/17 00:18; Start 07/26/17 at 08:15; Stop 07/28/17 at 12:53 ; Status DC Meropenem 1 gm/ Sodium Chloride 100 ml @ 200 mls/hr Q8HRS IV Last administered on 07/29/17 05:54; Start 07/26/17 at 08:30; Stop 07/29/17 at 08:23 ; Status DC Vancomycin HCl 2 gm/Sodium Chloride 500 ml @ 250 mls/hr 1X ONCE IV Last administered on 07/26/17 09:27; Start 07/26/17 at 08:30; Stop 07/26/17 at 10:29 ; Status DC Potassium Chloride (Klor-Con) 40 meq DAILYWBKFT PO Last administered on 10:30; Start 07/26/17 at 09:30 Vancomycin HCl 1.25 gm/Sodium Chloride 250 ml @ 167 mls/hr Q12H IV Last administered on 07/27/17 21:37; Start 07/26/17 at 22:00; Stop 07/28/17 at 01:00 ; Status DC Vancomycin HCl 1 each 1X ONCE MC Last administered on 07/27/17 21:30; Start 07/27/17 at 21:30; Stop 07/27/17 at 21:31; Status DC Furosemide (Lasix) 40 mg 1X ONCE IVP Last administered on 07/26/17 11:47; Start 07/26/17 at 11:30; Stop 07/26/17 at 11:31; Status DC Gadobutrol (Gadavist) 10 mmol 1X ONCE IV Last administered on 07/26/17 16:19 ; Start 07/26/17 at 16:15; Stop 07/26/17 at 16:16; Status DC Morphine Sulfate 3 mg PRN Q3HRS PRN IV PAIN Last administered on 07/29/17 01: 45; Start 07/27/17 at 08:30 Morphine Sulfate 4 mg PRN Q3HRS PRN IV PAIN; Start 07/27/17 at 08:30 Morphine Sulfate 5 mg PRN Q3HRS PRN IV PAIN; Start 07/27/17 at 08:45 Gadobutrol (Gadavist) 9 mmol 1X ONCE IV Last administered on 07/27/17 10:37; Start 07/27/17 at 10:15; Stop 07/27/17 at 10:16; Status DC Furosemide (Lasix) 40 mg 1X ONCE IVP Last administered on 07/27/17 14:12; Start 07/27/17 at 14:00; Stop 07/27/17 at 14:01; Status DC Vancomycin HCl 1.5 gm/Sodium Chloride 500 ml @ 250 mls/hr Q24H IV ; Start 07/28 at 22:00; Stop 07/28/17 at 22:00; Status DC Vancomycin HCl 1 each 1X ONCE MC ; Start 07/30/17 at 21:30; Stop 07/30/17 at 21 :30; Status DC Acetaminophen (Tylenol) 650 mg PRN Q6HRS PRN PO FEVER > 100.5'F; Start at 05:30 Tamsulosin HCl (Flomax) 0.4 mg QHS PO ; Start 07/28/17 at 21:00; Status UNV Cefazolin Sodium/ Dextrose 50 ml @ 100 mls/hr Q8HRS IV Last administered on 10:31; Start 07/29/17 at 08:30 Polyethylene Glycol (miraLAX PACKET) 17 gm DAILY PO Last administered on 10:30; Start 07/29/17 at 09:00 Active Scripts Active Colace (Docusate Sodium) 100 Mg Capsule 100 Mg PO BID 60 Days Methocarbamol 750 Mg Tablet 750 Mg PO TID 60 Days Hydrocodone-Apap 7.5-325 (Hydrocodone Bit/Acetaminophen) 1 Each Tablet 1 Tab PO PRN Q6HRS PRN 60 Days Reported Tamsulosin Hcl 0.4 Mg Cap.er.24h 0.4 Mg PO DAILY Metformin Hcl 500 Mg Tablet 500 Mg PO DAILYBFRSUP Gabapentin 100 Mg Capsule 100 Mg PO TID Lovastatin 20 Mg Tablet 1 Tab PO DAILY Mzaiiddduh-Xjivgurahsx-Uui Tab (Gluc/Jonah-Msm#2/C/D3/Vidal/Born) 1 Each Tablet 1 Each PO BID Glimepiride 1 Mg Tablet 0.5 Tab PO DAILY Losartan Potassium 100 Mg Tablet 100 Mg PO DAILY Diclofenac Sodium 75 Mg Tablet.dr 75 Mg PO BID Nitrostat (Nitroglycerin) 0.4 Mg Tab.subl 0.4 Mg SL PRN Viagra (Sildenafil Citrate) 100 Mg Tablet 100 Mg PO PRN Potassium Chloride 10 Meq Tablet.er 10 Meq PO DAILY Metformin Hcl 1,000 Mg Tablet 1,000 Mg PO DAILY08 Hydrochlorothiazide Tablet (Hydrochlorothiazide) 25 Mg Tablet 25 Mg PO DAILY Metoprolol Tartrate 100 Mg Tablet 50 Mg PO BID Flovent 50MCG Diskus (Fluticasone Propionate) 50 Mcg Disk.w.dev 50 Mcg IH DAILY Citalopram Hbr (Citalopram Hydrobromide) 20 Mg Tablet 20 Mg PO BID Nifedipine Er (Nifedipine) 90 Mg Tab.er.24 90 Mg PO DAILY Multivitamins (Multivitamin) 1 Each Tablet 1 Each PO DAILY Fish Oil 1,200 Mg Fish Oil (Fish Oil/Dha/Epa) 1 Each Capsule 1 Each PO BID Vitals/I & O Vital Sign - Last 24 Hours 07/28/17 07/28/17 07/28/17 07/28/17 11:29 12:00 12:00 13:00 Temp 98.9 98.9 Pulse 91 87 Resp 22 20 B/P (MAP) 125/59 (81) 122/59 (80) Pulse Ox 96 93 94 O2 Delivery Nasal Cannula Nasal Cannula Nasal Cannula Room Air O2 Flow Rate 2.0 4.0 4.0 07/28/17 07/28/17 07/28/17 07/28/17 14:00 15:00 15:09 19:25 Temp 99.5 99.5 Pulse 87 85 89 Resp 18 31 18 B/P (MAP) 133/67 (89) 133/57 (82) 131/69 (89) Pulse Ox 93 92 92 92 O2 Delivery Nasal Cannula Nasal Cannula Nasal Cannula Nasal Cannula O2 Flow Rate 4.0 4.0 2.0 3.0 07/28/17 07/28/17 07/28/17 07/28/17 19:30 19:35 20:00 21:17 Temp 99.2 99.2 99.2 99.2 Pulse 91 91 Resp 20 20 B/P (MAP) 117/58 (77) 121/56 (77) Pulse Ox 89 90 93 O2 Delivery Nasal Cannula Nasal Cannula Bi-pap Nasal Cannula O2 Flow Rate 3.0 3.0 5.0 07/28/17 07/28/17 07/29/17 07/29/17 21:53 23:15 01:07 01:45 Temp 99.0 99.0 Pulse 91 84 Resp 20 B/P (MAP) 121/56 141/77 (98) Pulse Ox 92 91 O2 Delivery BiPAP/CPAP BiPAP/CPAP BiPAP/CPAP 07/29/17 07/29/17 07/29/17 07/29/17 02:15 03:20 07:00 08:19 Temp 98.5 97.9 98.5 97.9 Pulse 86 85 Resp 20 18 B/P (MAP) 147/81 (103) 145/72 (96) Pulse Ox 96 90 92 O2 Delivery BiPAP/CPAP BiPAP/CPAP Nasal Cannula Nasal Cannula O2 Flow Rate 4.0 5.0 07/29/17 07/29/17 07/29/17 10:27 10:29 10:29 Pulse 85 85 85 B/P (MAP) 145/72 145/72 145/72 LISBETH OLIVA III DO Jul 29, 2017 11:16
--- NOTE | 2017-07-29 12:52 | PDOC ---
PROGRESS NOTES Assessment Chronic back pain, MRI lumbar spine shows spinal stenosis Memory loss, a little worse today, also has had some hypoxia, Labs for other causes negative Plan Follow-up with me in 6 weeks Outpatient pain management evaluation for back Subjective He is a little more confused this morning Objective Vital Signs Date Time Temp Pulse Resp B/P (MAP) Pulse Ox O2 Delivery O2 Flow Rate FiO2 07/29/17 11:00 98.1 92 18 153/77 (102) 95 Nasal Cannula 4.0 98.1 PHYSICAL EXAM Alert. Oriented to time, place and person. PERRL. EOMI. CN: no focal findings. Muscle tone: normal. Muscle strength: 5/5 DTR: 1+ Plantar reflex: flexor Gait: not examined in bed. Sensory exam: no abnormal findings. No cerebellar signs elicited. Review of Relevant I have reviewed the following items kyler (where applicable) has been applied. Labs Laboratory Tests Test 07/27/17 13:41 07/27/17 16:55 07/27/17 21:30 07/28/17 04:10 Lactic Acid Level 1.9 mmol/L (0.4-2.0) Phosphorus Level 3.8 mg/dL (2.6-4.7) Creatine Kinase 1159 U/L (39-308) Glucose (Fingerstick) 173 mg/dL (70-99) Vancomycin Level Trough 23.4 mcg/mL (10.0-20.0) Vancomycin Last Dose Date 07/27/17 Vancomycin Last Dose Time 1000 White Blood Count 11.4 x10^3/uL (4.0-11.0) Red Blood Count 3.51 x10^6/uL (4.30-5.70) Hemoglobin 9.9 g/dL (13.0-17.5) Hematocrit 29.2 % (39.0-53.0) Mean Corpuscular Volume 83 fL (79-100) Mean Corpuscular Hemoglobin 28 pg (25-35) Mean Corpuscular Hemoglobin Concent 34 g/dL (31-37) Red Cell Distribution Width 14.1 % (11.5-14.5) Platelet Count 200 x10^3/uL (140-400) Neutrophils (%) (Auto) 83 % (31-73) Lymphocytes (%) (Auto) 5 % (24-48) Monocytes (%) (Auto) 12 % (0-9) Eosinophils (%) (Auto) 0 % (0-3) Basophils (%) (Auto) 0 % (0-3) Neutrophils # (Auto) 9.4 x10^3uL (1.8-7.7) Lymphocytes # (Auto) 0.6 x10^3/uL (1.0-4.8) Monocytes # (Auto) 1.3 x10^3/uL (0.0-1.1) Eosinophils # (Auto) 0.0 x10^3/uL (0.0-0.7) Basophils # (Auto) 0.0 x10^3/uL (0.0-0.2) Sodium Level 128 mmol/L (136-145) Potassium Level 3.9 mmol/L (3.5-5.1) Chloride Level 93 mmol/L (98-107) Carbon Dioxide Level 24 mmol/L (21-32) Anion Gap 11 (6-14) Blood Urea Nitrogen 29 mg/dL (8-26) Creatinine 1.3 mg/dL (0.7-1.3) Estimated GFR (Cockcroft-Gault) 54.6 Glucose Level 132 mg/dL (70-99) Calcium Level 8.4 mg/dL (8.5-10.1) Test 07/28/17 04:17 07/28/17 07:36 07/28/17 08:13 07/28/17 12:43 Troponin I Quantitative 5.045 ng/mL (0.000-0.055) O2 Saturation 97 % (92-99) Arterial Blood pH 7.45 (7.35-7.45) Arterial Blood pCO2 at Patient Temp 30 mmHg (35-46) Arterial Blood pO2 at Patient Temp 99 mmHg (65-108) Arterial Blood HCO3 20 mmol/L (21-28) Arterial Blood Base Excess -3 mmol/L (-3-3) FiO2 60 Glucose (Fingerstick) 131 mg/dL (70-99) 87 mg/dL (70-99) Test 07/28/17 17:03 07/28/17 20:32 07/29/17 04:25 07/29/17 07:11 Glucose (Fingerstick) 150 mg/dL (70-99) 144 mg/dL (70-99) 138 mg/dL (70-99) White Blood Count 14.2 x10^3/uL (4.0-11.0) Red Blood Count 3.78 x10^6/uL (4.30-5.70) Hemoglobin 10.8 g/dL (13.0-17.5) Hematocrit 30.9 % (39.0-53.0) Mean Corpuscular Volume 82 fL (79-100) Mean Corpuscular Hemoglobin 29 pg (25-35) Mean Corpuscular Hemoglobin Concent 35 g/dL (31-37) Red Cell Distribution Width 14.2 % (11.5-14.5) Platelet Count 233 x10^3/uL (140-400) Neutrophils (%) (Auto) 88 % (31-73) Lymphocytes (%) (Auto) 4 % (24-48) Monocytes (%) (Auto) 8 % (0-9) Eosinophils (%) (Auto) 1 % (0-3) Basophils (%) (Auto) 0 % (0-3) Neutrophils # (Auto) 12.4 x10^3uL (1.8-7.7) Lymphocytes # (Auto) 0.5 x10^3/uL (1.0-4.8) Monocytes # (Auto) 1.2 x10^3/uL (0.0-1.1) Eosinophils # (Auto) 0.1 x10^3/uL (0.0-0.7) Basophils # (Auto) 0.0 x10^3/uL (0.0-0.2) Sodium Level 132 mmol/L (136-145) Potassium Level 3.5 mmol/L (3.5-5.1) Chloride Level 95 mmol/L (98-107) Carbon Dioxide Level 26 mmol/L (21-32) Anion Gap 11 (6-14) Blood Urea Nitrogen 30 mg/dL (8-26) Creatinine 1.3 mg/dL (0.7-1.3) Estimated GFR (Cockcroft-Gault) 54.6 Glucose Level 154 mg/dL (70-99) Calcium Level 8.4 mg/dL (8.5-10.1) Laboratory Tests Test 07/28/17 17:03 07/28/17 20:32 07/29/17 04:25 07/29/17 07:11 Glucose (Fingerstick) 150 mg/dL (70-99) 144 mg/dL (70-99) 138 mg/dL (70-99) White Blood Count 14.2 x10^3/uL (4.0-11.0) Red Blood Count 3.78 x10^6/uL (4.30-5.70) Hemoglobin 10.8 g/dL (13.0-17.5) Hematocrit 30.9 % (39.0-53.0) Mean Corpuscular Volume 82 fL (79-100) Mean Corpuscular Hemoglobin 29 pg (25-35) Mean Corpuscular Hemoglobin Concent 35 g/dL (31-37) Red Cell Distribution Width 14.2 % (11.5-14.5) Platelet Count 233 x10^3/uL (140-400) Neutrophils (%) (Auto) 88 % (31-73) Lymphocytes (%) (Auto) 4 % (24-48) Monocytes (%) (Auto) 8 % (0-9) Eosinophils (%) (Auto) 1 % (0-3) Basophils (%) (Auto) 0 % (0-3) Neutrophils # (Auto) 12.4 x10^3uL (1.8-7.7) Lymphocytes # (Auto) 0.5 x10^3/uL (1.0-4.8) Monocytes # (Auto) 1.2 x10^3/uL (0.0-1.1) Eosinophils # (Auto) 0.1 x10^3/uL (0.0-0.7) Basophils # (Auto) 0.0 x10^3/uL (0.0-0.2) Sodium Level 132 mmol/L (136-145) Potassium Level 3.5 mmol/L (3.5-5.1) Chloride Level 95 mmol/L (98-107) Carbon Dioxide Level 26 mmol/L (21-32) Anion Gap 11 (6-14) Blood Urea Nitrogen 30 mg/dL (8-26) Creatinine 1.3 mg/dL (0.7-1.3) Estimated GFR (Cockcroft-Gault) 54.6 Glucose Level 154 mg/dL (70-99) Calcium Level 8.4 mg/dL (8.5-10.1) Microbiology 07/28/17 Blood Culture - Preliminary, Resulted NO GROWTH AFTER 1 DAY Medications Current Medications Citalopram Hydrobromide (CeleXA) 20 mg BID PO Last administered on 07/29/17 10 :29; Start 07/25/17 at 21:00 Docusate Sodium (Colace) 100 mg BID PO Last administered on 07/29/17 10:27; Start 07/25/17 at 21:00 Gabapentin (Neurontin) 100 mg TID PO Last administered on 07/29/17 10:28; Start 07/25/17 at 21:00 Hydrochlorothiazide (Hydrodiuril) 25 mg DAILY PO Last administered on 08:30; Start 07/26/17 at 09:00; Stop 07/27/17 at 14:23; Status DC Acetaminophen/ Hydrocodone Bitart (Lortab 7.5/325) 1 tab PRN Q6HRS PRN PO PAIN Last administered on 07/27/17 07:40; Start 07/25/17 at 19:45 Metformin HCl (Glucophage) 1,000 mg DAILY08 PO Last administered on 07/29/17 10:27; Start 07/26/17 at 08:00 Metformin HCl (Glucophage) 500 mg DAILYBFRSUP PO Last administered on 18:39; Start 07/26/17 at 17:00 Methocarbamol (Robaxin) 750 mg TID PO Last administered on 07/26/17 08:38; Start 07/25/17 at 21:00; Stop 07/26/17 at 18:44; Status DC Potassium Chloride (Klor-Con) 10 meq DAILYWBKFT PO Last administered on 08:33; Start 07/26/17 at 08:00; Stop 07/26/17 at 08:55; Status DC Tamsulosin HCl (Flomax) 0.4 mg DAILY PO Last administered on 07/29/17 10:28; Start 07/26/17 at 09:00 Diclofenac Sodium (Voltaren) 75 mg BID PO Last administered on 07/28/17 09:04 ; Start 07/25/17 at 21:00; Stop 07/28/17 at 19:45; Status DC Fish Oil (Fish Oil) 1,000 mg BID PO Last administered on 07/29/17 10:26; Start 07/25/17 at 21:00 Fluticasone Propionate (Flonase) 2 spray DAILY NS Last administered on 10:31; Start 07/26/17 at 09:00 Glimepiride (Amaryl) 0.5 mg DAILY PO Last administered on 07/29/17 10:28; Start 07/26/17 at 09:00 Non-Formulary Medication 1 each BID PO ; Start 07/25/17 at 21:00; Status UNV Losartan Potassium (Cozaar) 100 mg DAILY PO Last administered on 07/29/17 10: 27; Start 07/26/17 at 09:00 Atorvastatin Calcium (Lipitor) 5 mg QHS PO Last administered on 07/28/17 21:53 ; Start 07/25/17 at 21:00 Metoprolol Tartrate (Lopressor) 50 mg BID PO Last administered on 07/29/17 10: 29; Start 07/25/17 at 21:00 Multivitamins (Thera M Plus) 1 tab DAILY PO Last administered on 07/29/17 10: 27; Start 07/26/17 at 09:00 Nifedipine (Procardia Xl) 90 mg DAILY PO Last administered on 07/29/17 10:29; Start 07/26/17 at 09:00 Sodium Chloride 1,000 ml @ 1,000 mls/hr 1X ONCE IV Last administered on 21:56; Start 07/25/17 at 19:45; Stop 07/25/17 at 20:44; Status DC Potassium Chloride (Klor-Con) 40 meq 1X ONCE PO Last administered on 21:41; Start 07/25/17 at 19:45; Stop 07/25/17 at 19:48; Status DC Sodium Chloride 1,000 ml @ 100 mls/hr 1X ONCE IV Last administered on 21:53; Start 07/25/17 at 19:45; Stop 07/26/17 at 05:44; Status DC Insulin Aspart (NovoLOG) 0-7 UNITS TIDWMEALS SQ Last administered on 07/27/17 16:58; Start 07/26/17 at 08:00 Dextrose (Dextrose 50%-Water Syringe) 12.5 gm PRN Q15MIN PRN IV SEE COMMENTS; Start 07/25/17 at 20:00 Info (Do NOT chart on this placeholder) 0.5 each 1X ONCE MC ; Start 07/26/17 at 09:00; Stop 07/26/17 at 09:01; Status UNV Influenza Virus Vaccine Quadrival (Fluarix Quad [id number] Syringe) 0.5 ml ONCE ONCE VAX IM Last administered on 07/28/17 09:31; Start 07/26/17 at 09:00; Stop 07/26/17 at 09:01; Status DC Albuterol/ Ipratropium (Duoneb) 3 ml RTQID NEB Last administered on 07/29/17 11:55; Start 07/26/17 at 08:00 Albuterol Sulfate (Ventolin Neb Soln) 2.5 mg PRN Q2HRS PRN NEB SHORTNESS OF BREATH Last administered on 07/26/17 02:00; Start 07/26/17 at 01:30 Enoxaparin Sodium (Lovenox 100mg Syringe) 100 mg 1X ONCE SQ Last administered on 07/26/17 02:08; Start 07/26/17 at 02:00; Stop 07/26/17 at 02:04; Status DC Heparin Sodium/ Dextrose 500 ml @ 0 mls/hr CONT PRN IV SEE I/O RECORD Last administered on 07/26/17 03:42; Start 07/26/17 at 03:30; Stop 07/28/17 at 08:16 ; Status DC Heparin Sodium (Porcine) (Heparin Sodium) 2,450 unit PRN Q6HRS PRN IV FOR UFH LEVEL LESS THAN 0.2; Start 07/26/17 at 03:30; Stop 07/28/17 at 08:16; Status DC Info (Anti-Coagulation Monitoring By Pharmacy) 1 each PRN DAILY PRN MC SEE COMMENTS Last administered on 07/27/17 10:04; Start 07/26/17 at 03:30; Stop at 08:16; Status DC Vancomycin HCl (Vanco Per Pharmacy) 1 each PRN DAILY PRN MC SEE COMMENTS Last administered on 07/28/17 00:18; Start 07/26/17 at 08:15; Stop 07/28/17 at 12:53 ; Status DC Meropenem 1 gm/ Sodium Chloride 100 ml @ 200 mls/hr Q8HRS IV Last administered on 07/29/17 05:54; Start 07/26/17 at 08:30; Stop 07/29/17 at 08:23 ; Status DC Vancomycin HCl 2 gm/Sodium Chloride 500 ml @ 250 mls/hr 1X ONCE IV Last administered on 07/26/17 09:27; Start 07/26/17 at 08:30; Stop 07/26/17 at 10:29 ; Status DC Potassium Chloride (Klor-Con) 40 meq DAILYWBKFT PO Last administered on 10:30; Start 07/26/17 at 09:30 Vancomycin HCl 1.25 gm/Sodium Chloride 250 ml @ 167 mls/hr Q12H IV Last administered on 07/27/17 21:37; Start 07/26/17 at 22:00; Stop 07/28/17 at 01:00 ; Status DC Vancomycin HCl 1 each 1X ONCE MC Last administered on 07/27/17 21:30; Start 07/27/17 at 21:30; Stop 07/27/17 at 21:31; Status DC Furosemide (Lasix) 40 mg 1X ONCE IVP Last administered on 07/26/17 11:47; Start 07/26/17 at 11:30; Stop 07/26/17 at 11:31; Status DC Gadobutrol (Gadavist) 10 mmol 1X ONCE IV Last administered on 07/26/17 16:19 ; Start 07/26/17 at 16:15; Stop 07/26/17 at 16:16; Status DC Morphine Sulfate 3 mg PRN Q3HRS PRN IV PAIN Last administered on 07/29/17 01: 45; Start 07/27/17 at 08:30 Morphine Sulfate 4 mg PRN Q3HRS PRN IV PAIN; Start 07/27/17 at 08:30 Morphine Sulfate 5 mg PRN Q3HRS PRN IV PAIN; Start 07/27/17 at 08:45 Gadobutrol (Gadavist) 9 mmol 1X ONCE IV Last administered on 07/27/17 10:37; Start 07/27/17 at 10:15; Stop 07/27/17 at 10:16; Status DC Furosemide (Lasix) 40 mg 1X ONCE IVP Last administered on 07/27/17 14:12; Start 07/27/17 at 14:00; Stop 07/27/17 at 14:01; Status DC Vancomycin HCl 1.5 gm/Sodium Chloride 500 ml @ 250 mls/hr Q24H IV ; Start 07/28 at 22:00; Stop 07/28/17 at 22:00; Status DC Vancomycin HCl 1 each 1X ONCE MC ; Start 07/30/17 at 21:30; Stop 07/30/17 at 21 :30; Status DC Acetaminophen (Tylenol) 650 mg PRN Q6HRS PRN PO FEVER > 100.5'F; Start at 05:30 Tamsulosin HCl (Flomax) 0.4 mg QHS PO ; Start 07/28/17 at 21:00; Status UNV Cefazolin Sodium/ Dextrose 50 ml @ 100 mls/hr Q8HRS IV Last administered on 10:31; Start 07/29/17 at 08:30 Polyethylene Glycol (miraLAX PACKET) 17 gm DAILY PO Last administered on 10:30; Start 07/29/17 at 09:00 Lorazepam (Ativan) 1 mg PRN Q4HRS PRN IV ANXIETY / AGITATION; Start 07/29/17 at 12:15 Active Scripts Active Colace (Docusate Sodium) 100 Mg Capsule 100 Mg PO BID 60 Days Methocarbamol 750 Mg Tablet 750 Mg PO TID 60 Days Hydrocodone-Apap 7.5-325 (Hydrocodone Bit/Acetaminophen) 1 Each Tablet 1 Tab PO PRN Q6HRS PRN 60 Days Reported Tamsulosin Hcl 0.4 Mg Cap.er.24h 0.4 Mg PO DAILY Metformin Hcl 500 Mg Tablet 500 Mg PO DAILYBFRSUP Gabapentin 100 Mg Capsule 100 Mg PO TID Lovastatin 20 Mg Tablet 1 Tab PO DAILY Ohqewrlyad-Uwglhexlsck-Iys Tab (Gluc/Jonah-Msm#2/C/D3/Vidal/Born) 1 Each Tablet 1 Each PO BID Glimepiride 1 Mg Tablet 0.5 Tab PO DAILY Losartan Potassium 100 Mg Tablet 100 Mg PO DAILY Diclofenac Sodium 75 Mg Tablet.dr 75 Mg PO BID Nitrostat (Nitroglycerin) 0.4 Mg Tab.subl 0.4 Mg SL PRN Viagra (Sildenafil Citrate) 100 Mg Tablet 100 Mg PO PRN Potassium Chloride 10 Meq Tablet.er 10 Meq PO DAILY Metformin Hcl 1,000 Mg Tablet 1,000 Mg PO DAILY08 Hydrochlorothiazide Tablet (Hydrochlorothiazide) 25 Mg Tablet 25 Mg PO DAILY Metoprolol Tartrate 100 Mg Tablet 50 Mg PO BID Flovent 50MCG Diskus (Fluticasone Propionate) 50 Mcg Disk.w.dev 50 Mcg IH DAILY Citalopram Hbr (Citalopram Hydrobromide) 20 Mg Tablet 20 Mg PO BID Nifedipine Er (Nifedipine) 90 Mg Tab.er.24 90 Mg PO DAILY Multivitamins (Multivitamin) 1 Each Tablet 1 Each PO DAILY Fish Oil 1,200 Mg Fish Oil (Fish Oil/Dha/Epa) 1 Each Capsule 1 Each PO BID Vitals/I & O Vital Sign - Last 24 Hours 07/28/17 07/28/17 07/28/17 07/28/17 13:00 14:00 15:00 15:09 Pulse 87 87 85 Resp 20 18 31 B/P (MAP) 122/59 (80) 133/67 (89) 133/57 (82) Pulse Ox 94 93 92 92 O2 Delivery Room Air Nasal Cannula Nasal Cannula Nasal Cannula O2 Flow Rate 4.0 4.0 2.0 07/28/17 07/28/17 07/28/17 07/28/17 19:25 19:30 19:35 20:00 Temp 99.5 99.2 99.2 99.5 99.2 99.2 Pulse 89 91 91 Resp 18 20 20 B/P (MAP) 131/69 (89) 117/58 (77) 121/56 (77) Pulse Ox 92 89 90 O2 Delivery Nasal Cannula Nasal Cannula Nasal Cannula Bi-pap O2 Flow Rate 3.0 3.0 3.0 07/28/17 07/28/17 07/28/17 07/29/17 21:17 21:53 23:15 01:07 Temp 99.0 99.0 Pulse 91 84 Resp 20 B/P (MAP) 121/56 141/77 (98) Pulse Ox 93 92 91 O2 Delivery Nasal Cannula BiPAP/CPAP BiPAP/CPAP O2 Flow Rate 5.0 07/29/17 07/29/17 07/29/17 07/29/17 01:45 02:15 03:20 07:00 Temp 98.5 97.9 98.5 97.9 Pulse 86 85 Resp 20 18 B/P (MAP) 147/81 (103) 145/72 (96) Pulse Ox 96 90 O2 Delivery BiPAP/CPAP BiPAP/CPAP BiPAP/CPAP Nasal Cannula O2 Flow Rate 4.0 07/29/17 07/29/17 07/29/17 07/29/17 08:19 10:27 10:29 10:29 Pulse 85 85 85 B/P (MAP) 145/72 145/72 145/72 Pulse Ox 92 O2 Delivery Nasal Cannula O2 Flow Rate 5.0 07/29/17 11:00 Temp 98.1 98.1 Pulse 92 Resp 18 B/P (MAP) 153/77 (102) Pulse Ox 95 O2 Delivery Nasal Cannula O2 Flow Rate 4.0 STEPHANIA BARKSDALE MD Jul 29, 2017 12:52
--- NOTE | 2017-07-29 13:07 | PDOC ---
PULMONARY PROGRESS NOTES Subjective NOW ON BIPAP TODAY DECREASE SAT Vitals Vital Signs Date Time Temp Pulse Resp B/P (MAP) Pulse Ox O2 Delivery O2 Flow Rate FiO2 07/29/17 11:00 98.1 92 18 153/77 (102) 95 Nasal Cannula 4.0 98.1 General: Confused Lungs: Clear Cardiovascular: S1, S2 Abdomen: Soft Extremities: No Edema Skin: Warm Labs Laboratory Tests Test 07/27/17 13:41 07/27/17 16:55 07/27/17 21:30 07/28/17 04:10 Lactic Acid Level 1.9 mmol/L (0.4-2.0) Phosphorus Level 3.8 mg/dL (2.6-4.7) Creatine Kinase 1159 U/L (39-308) Glucose (Fingerstick) 173 mg/dL (70-99) Vancomycin Level Trough 23.4 mcg/mL (10.0-20.0) Vancomycin Last Dose Date 07/27/17 Vancomycin Last Dose Time 1000 White Blood Count 11.4 x10^3/uL (4.0-11.0) Red Blood Count 3.51 x10^6/uL (4.30-5.70) Hemoglobin 9.9 g/dL (13.0-17.5) Hematocrit 29.2 % (39.0-53.0) Mean Corpuscular Volume 83 fL (79-100) Mean Corpuscular Hemoglobin 28 pg (25-35) Mean Corpuscular Hemoglobin Concent 34 g/dL (31-37) Red Cell Distribution Width 14.1 % (11.5-14.5) Platelet Count 200 x10^3/uL (140-400) Neutrophils (%) (Auto) 83 % (31-73) Lymphocytes (%) (Auto) 5 % (24-48) Monocytes (%) (Auto) 12 % (0-9) Eosinophils (%) (Auto) 0 % (0-3) Basophils (%) (Auto) 0 % (0-3) Neutrophils # (Auto) 9.4 x10^3uL (1.8-7.7) Lymphocytes # (Auto) 0.6 x10^3/uL (1.0-4.8) Monocytes # (Auto) 1.3 x10^3/uL (0.0-1.1) Eosinophils # (Auto) 0.0 x10^3/uL (0.0-0.7) Basophils # (Auto) 0.0 x10^3/uL (0.0-0.2) Sodium Level 128 mmol/L (136-145) Potassium Level 3.9 mmol/L (3.5-5.1) Chloride Level 93 mmol/L (98-107) Carbon Dioxide Level 24 mmol/L (21-32) Anion Gap 11 (6-14) Blood Urea Nitrogen 29 mg/dL (8-26) Creatinine 1.3 mg/dL (0.7-1.3) Estimated GFR (Cockcroft-Gault) 54.6 Glucose Level 132 mg/dL (70-99) Calcium Level 8.4 mg/dL (8.5-10.1) Test 07/28/17 04:17 07/28/17 07:36 07/28/17 08:13 07/28/17 12:43 Troponin I Quantitative 5.045 ng/mL (0.000-0.055) O2 Saturation 97 % (92-99) Arterial Blood pH 7.45 (7.35-7.45) Arterial Blood pCO2 at Patient Temp 30 mmHg (35-46) Arterial Blood pO2 at Patient Temp 99 mmHg (65-108) Arterial Blood HCO3 20 mmol/L (21-28) Arterial Blood Base Excess -3 mmol/L (-3-3) FiO2 60 Glucose (Fingerstick) 131 mg/dL (70-99) 87 mg/dL (70-99) Test 07/28/17 17:03 07/28/17 20:32 07/29/17 04:25 07/29/17 07:11 Glucose (Fingerstick) 150 mg/dL (70-99) 144 mg/dL (70-99) 138 mg/dL (70-99) White Blood Count 14.2 x10^3/uL (4.0-11.0) Red Blood Count 3.78 x10^6/uL (4.30-5.70) Hemoglobin 10.8 g/dL (13.0-17.5) Hematocrit 30.9 % (39.0-53.0) Mean Corpuscular Volume 82 fL (79-100) Mean Corpuscular Hemoglobin 29 pg (25-35) Mean Corpuscular Hemoglobin Concent 35 g/dL (31-37) Red Cell Distribution Width 14.2 % (11.5-14.5) Platelet Count 233 x10^3/uL (140-400) Neutrophils (%) (Auto) 88 % (31-73) Lymphocytes (%) (Auto) 4 % (24-48) Monocytes (%) (Auto) 8 % (0-9) Eosinophils (%) (Auto) 1 % (0-3) Basophils (%) (Auto) 0 % (0-3) Neutrophils # (Auto) 12.4 x10^3uL (1.8-7.7) Lymphocytes # (Auto) 0.5 x10^3/uL (1.0-4.8) Monocytes # (Auto) 1.2 x10^3/uL (0.0-1.1) Eosinophils # (Auto) 0.1 x10^3/uL (0.0-0.7) Basophils # (Auto) 0.0 x10^3/uL (0.0-0.2) Sodium Level 132 mmol/L (136-145) Potassium Level 3.5 mmol/L (3.5-5.1) Chloride Level 95 mmol/L (98-107) Carbon Dioxide Level 26 mmol/L (21-32) Anion Gap 11 (6-14) Blood Urea Nitrogen 30 mg/dL (8-26) Creatinine 1.3 mg/dL (0.7-1.3) Estimated GFR (Cockcroft-Gault) 54.6 Glucose Level 154 mg/dL (70-99) Calcium Level 8.4 mg/dL (8.5-10.1) Laboratory Tests Test 07/28/17 17:03 07/28/17 20:32 07/29/17 04:25 07/29/17 07:11 Glucose (Fingerstick) 150 mg/dL (70-99) 144 mg/dL (70-99) 138 mg/dL (70-99) White Blood Count 14.2 x10^3/uL (4.0-11.0) Red Blood Count 3.78 x10^6/uL (4.30-5.70) Hemoglobin 10.8 g/dL (13.0-17.5) Hematocrit 30.9 % (39.0-53.0) Mean Corpuscular Volume 82 fL (79-100) Mean Corpuscular Hemoglobin 29 pg (25-35) Mean Corpuscular Hemoglobin Concent 35 g/dL (31-37) Red Cell Distribution Width 14.2 % (11.5-14.5) Platelet Count 233 x10^3/uL (140-400) Neutrophils (%) (Auto) 88 % (31-73) Lymphocytes (%) (Auto) 4 % (24-48) Monocytes (%) (Auto) 8 % (0-9) Eosinophils (%) (Auto) 1 % (0-3) Basophils (%) (Auto) 0 % (0-3) Neutrophils # (Auto) 12.4 x10^3uL (1.8-7.7) Lymphocytes # (Auto) 0.5 x10^3/uL (1.0-4.8) Monocytes # (Auto) 1.2 x10^3/uL (0.0-1.1) Eosinophils # (Auto) 0.1 x10^3/uL (0.0-0.7) Basophils # (Auto) 0.0 x10^3/uL (0.0-0.2) Sodium Level 132 mmol/L (136-145) Potassium Level 3.5 mmol/L (3.5-5.1) Chloride Level 95 mmol/L (98-107) Carbon Dioxide Level 26 mmol/L (21-32) Anion Gap 11 (6-14) Blood Urea Nitrogen 30 mg/dL (8-26) Creatinine 1.3 mg/dL (0.7-1.3) Estimated GFR (Cockcroft-Gault) 54.6 Glucose Level 154 mg/dL (70-99) Calcium Level 8.4 mg/dL (8.5-10.1) Medications Active Scripts Medications Dose Route/Sig Max Daily Dose Days Date Category Tamsulosin Hcl 0.4 Mg Cap.er.24h 0.4 Mg PO DAILY 03/31/17 Reported Metformin Hcl 500 Mg Tablet 500 Mg PO DAILYBFRSUP 03/31/17 Reported Colace (Docusate Sodium) 100 Mg Capsule 100 Mg PO BID 60 03/08/17 Rx Methocarbamol 750 Mg Tablet 750 Mg PO TID 60 03/08/17 Rx Hydrocodone-Apap 7.5-325 (Hydrocodone Bit/Acetaminophen) 1 Each Tablet 1 Tab PO PRN Q6HRS PRN 60 03/08/17 Rx Gabapentin 100 Mg Capsule 100 Mg PO TID 01/27/17 Reported Lovastatin 20 Mg Tablet 1 Tab PO DAILY 01/27/17 Reported Cdblbuxxva-Akwmxfmxpiw-Lkg Tab (Gluc/Jonah-Msm#2/C/D3/Vidal/Born) 1 Each Tablet 1 Each PO BID 07/17/15 Reported Glimepiride 1 Mg Tablet 0.5 Tab PO DAILY 07/17/15 Reported Losartan Potassium 100 Mg Tablet 100 Mg PO DAILY 01/10/14 Reported Diclofenac Sodium 75 Mg Tablet.dr 75 Mg PO BID 01/10/14 Reported Nitrostat (Nitroglycerin) 0.4 Mg Tab.subl 0.4 Mg SL PRN 01/10/14 Reported Viagra (Sildenafil Citrate) 100 Mg Tablet 100 Mg PO PRN 01/10/14 Reported Potassium Chloride 10 Meq Tablet.er 10 Meq PO DAILY 01/10/14 Reported Metformin Hcl 1,000 Mg Tablet 1,000 Mg PO DAILY08 01/10/14 Reported Hydrochlorothiazide Tablet (Hydrochlorothiazide) 25 Mg Tablet 25 Mg PO DAILY 01/10/14 Reported Metoprolol Tartrate 100 Mg Tablet 50 Mg PO BID 01/10/14 Reported Flovent 50MCG Diskus (Fluticasone Propionate) 50 Mcg Disk.w.dev 50 Mcg IH DAILY 01/10/14 Reported Citalopram Hbr (Citalopram Hydrobromide) 20 Mg Tablet 20 Mg PO BID 01/10/14 Reported Nifedipine Er (Nifedipine) 90 Mg Tab.er.24 90 Mg PO DAILY 01/10/14 Reported Multivitamins (Multivitamin) 1 Each Tablet 1 Each PO DAILY 01/10/14 Reported Fish Oil 1,200 Mg Fish Oil (Fish Oil/Dha/Epa) 1 Each Capsule 1 Each PO BID 01/10/14 Reported Impression . 1. Acute hypoxic respiratory failure secondary ACUTE CHF 2. Acute non-ST myocardial infarction with markedly elevated troponin levels. 3. Acute encephalopathy METABOLIC/TOXIC? 4. Increased CPK secondary to rhabdomyolysis. 5. Syncope secondary to myocardial infarction. 6. No significant history of tobacco use. 7. Leukocytosis. The patient had recent back surgery and had staph infection. now with Staph bacteremia 8. No evidence of PE by VQ Plan . BIPAP STAT ABG CXR PT HAS HAD A SLEEP STUDY IN PAST NO ESPERANZA DIURESE EXTRA LASIX ANITBX PER ID DR OLIVARES INPUT NOTED SPOKE WITH AND RN KELSEY GANDHI MD Jul 29, 2017 13:07
[2017-07-29] MEDS: metFORMIN 500 MG TABLET PO SCH (17:00)
--- NOTE | 2017-07-29 18:27 | PDOC ---
PROGRESS NOTES Subjective Subjective The patient is getting confused and weak again. No complaints of chest pains Objective Objective Vital Signs Date Time Temp Pulse Resp B/P (MAP) Pulse Ox O2 Delivery O2 Flow Rate FiO2 07/29/17 17:18 95 BiPAP/CPAP 07/29/17 11:00 98.1 92 18 153/77 (102) 4.0 98.1 Physical Exam Physical Exam Moving air better. No changes in area Crixivan. Extremities trace edema. Assessment Assessment The patient is progressing slowly. From a cardiac standpoint I believe that he needs to have a heart catheterization Way to until some of the other situations are better defined. Consider a heart cath to do in the future. Comment Review of Relevant I have reviewed the following items kyler (where applicable) has been applied. Labs Laboratory Tests Test 07/27/17 21:30 07/28/17 04:10 07/28/17 04:17 07/28/17 07:36 Vancomycin Level Trough 23.4 mcg/mL (10.0-20.0) Vancomycin Last Dose Date 07/27/17 Vancomycin Last Dose Time 1000 White Blood Count 11.4 x10^3/uL (4.0-11.0) Red Blood Count 3.51 x10^6/uL (4.30-5.70) Hemoglobin 9.9 g/dL (13.0-17.5) Hematocrit 29.2 % (39.0-53.0) Mean Corpuscular Volume 83 fL (79-100) Mean Corpuscular Hemoglobin 28 pg (25-35) Mean Corpuscular Hemoglobin Concent 34 g/dL (31-37) Red Cell Distribution Width 14.1 % (11.5-14.5) Platelet Count 200 x10^3/uL (140-400) Neutrophils (%) (Auto) 83 % (31-73) Lymphocytes (%) (Auto) 5 % (24-48) Monocytes (%) (Auto) 12 % (0-9) Eosinophils (%) (Auto) 0 % (0-3) Basophils (%) (Auto) 0 % (0-3) Neutrophils # (Auto) 9.4 x10^3uL (1.8-7.7) Lymphocytes # (Auto) 0.6 x10^3/uL (1.0-4.8) Monocytes # (Auto) 1.3 x10^3/uL (0.0-1.1) Eosinophils # (Auto) 0.0 x10^3/uL (0.0-0.7) Basophils # (Auto) 0.0 x10^3/uL (0.0-0.2) Sodium Level 128 mmol/L (136-145) Potassium Level 3.9 mmol/L (3.5-5.1) Chloride Level 93 mmol/L (98-107) Carbon Dioxide Level 24 mmol/L (21-32) Anion Gap 11 (6-14) Blood Urea Nitrogen 29 mg/dL (8-26) Creatinine 1.3 mg/dL (0.7-1.3) Estimated GFR (Cockcroft-Gault) 54.6 Glucose Level 132 mg/dL (70-99) Calcium Level 8.4 mg/dL (8.5-10.1) Troponin I Quantitative 5.045 ng/mL (0.000-0.055) O2 Saturation 97 % (92-99) Arterial Blood pH 7.45 (7.35-7.45) Arterial Blood pCO2 at Patient Temp 30 mmHg (35-46) Arterial Blood pO2 at Patient Temp 99 mmHg (65-108) Arterial Blood HCO3 20 mmol/L (21-28) Arterial Blood Base Excess -3 mmol/L (-3-3) FiO2 60 Test 07/28/17 08:13 07/28/17 12:43 07/28/17 17:03 07/28/17 20:32 Glucose (Fingerstick) 131 mg/dL (70-99) 87 mg/dL (70-99) 150 mg/dL (70-99) 144 mg/dL (70-99) Test 07/29/17 04:25 07/29/17 07:11 White Blood Count 14.2 x10^3/uL (4.0-11.0) Red Blood Count 3.78 x10^6/uL (4.30-5.70) Hemoglobin 10.8 g/dL (13.0-17.5) Hematocrit 30.9 % (39.0-53.0) Mean Corpuscular Volume 82 fL (79-100) Mean Corpuscular Hemoglobin 29 pg (25-35) Mean Corpuscular Hemoglobin Concent 35 g/dL (31-37) Red Cell Distribution Width 14.2 % (11.5-14.5) Platelet Count 233 x10^3/uL (140-400) Neutrophils (%) (Auto) 88 % (31-73) Lymphocytes (%) (Auto) 4 % (24-48) Monocytes (%) (Auto) 8 % (0-9) Eosinophils (%) (Auto) 1 % (0-3) Basophils (%) (Auto) 0 % (0-3) Neutrophils # (Auto) 12.4 x10^3uL (1.8-7.7) Lymphocytes # (Auto) 0.5 x10^3/uL (1.0-4.8) Monocytes # (Auto) 1.2 x10^3/uL (0.0-1.1) Eosinophils # (Auto) 0.1 x10^3/uL (0.0-0.7) Basophils # (Auto) 0.0 x10^3/uL (0.0-0.2) Sodium Level 132 mmol/L (136-145) Potassium Level 3.5 mmol/L (3.5-5.1) Chloride Level 95 mmol/L (98-107) Carbon Dioxide Level 26 mmol/L (21-32) Anion Gap 11 (6-14) Blood Urea Nitrogen 30 mg/dL (8-26) Creatinine 1.3 mg/dL (0.7-1.3) Estimated GFR (Cockcroft-Gault) 54.6 Glucose Level 154 mg/dL (70-99) Calcium Level 8.4 mg/dL (8.5-10.1) Glucose (Fingerstick) 138 mg/dL (70-99) Laboratory Tests Test 07/28/17 20:32 07/29/17 04:25 07/29/17 07:11 Glucose (Fingerstick) 144 mg/dL (70-99) 138 mg/dL (70-99) White Blood Count 14.2 x10^3/uL (4.0-11.0) Red Blood Count 3.78 x10^6/uL (4.30-5.70) Hemoglobin 10.8 g/dL (13.0-17.5) Hematocrit 30.9 % (39.0-53.0) Mean Corpuscular Volume 82 fL (79-100) Mean Corpuscular Hemoglobin 29 pg (25-35) Mean Corpuscular Hemoglobin Concent 35 g/dL (31-37) Red Cell Distribution Width 14.2 % (11.5-14.5) Platelet Count 233 x10^3/uL (140-400) Neutrophils (%) (Auto) 88 % (31-73) Lymphocytes (%) (Auto) 4 % (24-48) Monocytes (%) (Auto) 8 % (0-9) Eosinophils (%) (Auto) 1 % (0-3) Basophils (%) (Auto) 0 % (0-3) Neutrophils # (Auto) 12.4 x10^3uL (1.8-7.7) Lymphocytes # (Auto) 0.5 x10^3/uL (1.0-4.8) Monocytes # (Auto) 1.2 x10^3/uL (0.0-1.1) Eosinophils # (Auto) 0.1 x10^3/uL (0.0-0.7) Basophils # (Auto) 0.0 x10^3/uL (0.0-0.2) Sodium Level 132 mmol/L (136-145) Potassium Level 3.5 mmol/L (3.5-5.1) Chloride Level 95 mmol/L (98-107) Carbon Dioxide Level 26 mmol/L (21-32) Anion Gap 11 (6-14) Blood Urea Nitrogen 30 mg/dL (8-26) Creatinine 1.3 mg/dL (0.7-1.3) Estimated GFR (Cockcroft-Gault) 54.6 Glucose Level 154 mg/dL (70-99) Calcium Level 8.4 mg/dL (8.5-10.1) Microbiology 07/28/17 Blood Culture - Preliminary, Resulted NO GROWTH AFTER 1 DAY Medications Current Medications Citalopram Hydrobromide (CeleXA) 20 mg BID PO Last administered on 07/29/17 10 :29; Start 07/25/17 at 21:00 Docusate Sodium (Colace) 100 mg BID PO Last administered on 07/29/17 10:27; Start 07/25/17 at 21:00 Gabapentin (Neurontin) 100 mg TID PO Last administered on 07/29/17 10:28; Start 07/25/17 at 21:00 Hydrochlorothiazide (Hydrodiuril) 25 mg DAILY PO Last administered on 08:30; Start 07/26/17 at 09:00; Stop 07/27/17 at 14:23; Status DC Acetaminophen/ Hydrocodone Bitart (Lortab 7.5/325) 1 tab PRN Q6HRS PRN PO PAIN Last administered on 07/27/17 07:40; Start 07/25/17 at 19:45 Metformin HCl (Glucophage) 1,000 mg DAILY08 PO Last administered on 07/29/17 10:27; Start 07/26/17 at 08:00 Metformin HCl (Glucophage) 500 mg DAILYBFRSUP PO Last administered on 18:39; Start 07/26/17 at 17:00 Methocarbamol (Robaxin) 750 mg TID PO Last administered on 07/26/17 08:38; Start 07/25/17 at 21:00; Stop 07/26/17 at 18:44; Status DC Potassium Chloride (Klor-Con) 10 meq DAILYWBKFT PO Last administered on 08:33; Start 07/26/17 at 08:00; Stop 07/26/17 at 08:55; Status DC Tamsulosin HCl (Flomax) 0.4 mg DAILY PO Last administered on 07/29/17 10:28; Start 07/26/17 at 09:00 Diclofenac Sodium (Voltaren) 75 mg BID PO Last administered on 07/28/17 09:04 ; Start 07/25/17 at 21:00; Stop 07/28/17 at 19:45; Status DC Fish Oil (Fish Oil) 1,000 mg BID PO Last administered on 07/29/17 10:26; Start 07/25/17 at 21:00 Fluticasone Propionate (Flonase) 2 spray DAILY NS Last administered on 10:31; Start 07/26/17 at 09:00 Glimepiride (Amaryl) 0.5 mg DAILY PO Last administered on 07/29/17 10:28; Start 07/26/17 at 09:00 Non-Formulary Medication 1 each BID PO ; Start 07/25/17 at 21:00; Status UNV Losartan Potassium (Cozaar) 100 mg DAILY PO Last administered on 07/29/17 10: 27; Start 07/26/17 at 09:00 Atorvastatin Calcium (Lipitor) 5 mg QHS PO Last administered on 07/28/17 21:53 ; Start 07/25/17 at 21:00 Metoprolol Tartrate (Lopressor) 50 mg BID PO Last administered on 07/29/17 10: 29; Start 07/25/17 at 21:00 Multivitamins (Thera M Plus) 1 tab DAILY PO Last administered on 07/29/17 10: 27; Start 07/26/17 at 09:00 Nifedipine (Procardia Xl) 90 mg DAILY PO Last administered on 07/29/17 10:29; Start 07/26/17 at 09:00 Sodium Chloride 1,000 ml @ 1,000 mls/hr 1X ONCE IV Last administered on 21:56; Start 07/25/17 at 19:45; Stop 07/25/17 at 20:44; Status DC Potassium Chloride (Klor-Con) 40 meq 1X ONCE PO Last administered on 21:41; Start 07/25/17 at 19:45; Stop 07/25/17 at 19:48; Status DC Sodium Chloride 1,000 ml @ 100 mls/hr 1X ONCE IV Last administered on 21:53; Start 07/25/17 at 19:45; Stop 07/26/17 at 05:44; Status DC Insulin Aspart (NovoLOG) 0-7 UNITS TIDWMEALS SQ Last administered on 07/27/17 16:58; Start 07/26/17 at 08:00 Dextrose (Dextrose 50%-Water Syringe) 12.5 gm PRN Q15MIN PRN IV SEE COMMENTS; Start 07/25/17 at 20:00 Info (Do NOT chart on this placeholder) 0.5 each 1X ONCE MC ; Start 07/26/17 at 09:00; Stop 07/26/17 at 09:01; Status UNV Influenza Virus Vaccine Quadrival (Fluarix Quad [id number] Syringe) 0.5 ml ONCE ONCE VAX IM Last administered on 07/28/17 09:31; Start 07/26/17 at 09:00; Stop 07/26/17 at 09:01; Status DC Albuterol/ Ipratropium (Duoneb) 3 ml RTQID NEB Last administered on 07/29/17 15:16; Start 07/26/17 at 08:00 Albuterol Sulfate (Ventolin Neb Soln) 2.5 mg PRN Q2HRS PRN NEB SHORTNESS OF BREATH Last administered on 07/26/17 02:00; Start 07/26/17 at 01:30 Enoxaparin Sodium (Lovenox 100mg Syringe) 100 mg 1X ONCE SQ Last administered on 07/26/17 02:08; Start 07/26/17 at 02:00; Stop 07/26/17 at 02:04; Status DC Heparin Sodium/ Dextrose 500 ml @ 0 mls/hr CONT PRN IV SEE I/O RECORD Last administered on 07/26/17 03:42; Start 07/26/17 at 03:30; Stop 07/28/17 at 08:16 ; Status DC Heparin Sodium (Porcine) (Heparin Sodium) 2,450 unit PRN Q6HRS PRN IV FOR UFH LEVEL LESS THAN 0.2; Start 07/26/17 at 03:30; Stop 07/28/17 at 08:16; Status DC Info (Anti-Coagulation Monitoring By Pharmacy) 1 each PRN DAILY PRN MC SEE COMMENTS Last administered on 07/27/17 10:04; Start 07/26/17 at 03:30; Stop at 08:16; Status DC Vancomycin HCl (Vanco Per Pharmacy) 1 each PRN DAILY PRN MC SEE COMMENTS Last administered on 07/28/17 00:18; Start 07/26/17 at 08:15; Stop 07/28/17 at 12:53 ; Status DC Meropenem 1 gm/ Sodium Chloride 100 ml @ 200 mls/hr Q8HRS IV Last administered on 07/29/17 05:54; Start 07/26/17 at 08:30; Stop 07/29/17 at 08:23 ; Status DC Vancomycin HCl 2 gm/Sodium Chloride 500 ml @ 250 mls/hr 1X ONCE IV Last administered on 07/26/17 09:27; Start 07/26/17 at 08:30; Stop 07/26/17 at 10:29 ; Status DC Potassium Chloride (Klor-Con) 40 meq DAILYWBKFT PO Last administered on 10:30; Start 07/26/17 at 09:30 Vancomycin HCl 1.25 gm/Sodium Chloride 250 ml @ 167 mls/hr Q12H IV Last administered on 07/27/17 21:37; Start 07/26/17 at 22:00; Stop 07/28/17 at 01:00 ; Status DC Vancomycin HCl 1 each 1X ONCE MC Last administered on 07/27/17 21:30; Start 07/27/17 at 21:30; Stop 07/27/17 at 21:31; Status DC Furosemide (Lasix) 40 mg 1X ONCE IVP Last administered on 07/26/17 11:47; Start 07/26/17 at 11:30; Stop 07/26/17 at 11:31; Status DC Gadobutrol (Gadavist) 10 mmol 1X ONCE IV Last administered on 07/26/17 16:19 ; Start 07/26/17 at 16:15; Stop 07/26/17 at 16:16; Status DC Morphine Sulfate 3 mg PRN Q3HRS PRN IV PAIN Last administered on 07/29/17 01: 45; Start 07/27/17 at 08:30 Morphine Sulfate 4 mg PRN Q3HRS PRN IV PAIN; Start 07/27/17 at 08:30 Morphine Sulfate 5 mg PRN Q3HRS PRN IV PAIN; Start 07/27/17 at 08:45 Gadobutrol (Gadavist) 9 mmol 1X ONCE IV Last administered on 07/27/17 10:37; Start 07/27/17 at 10:15; Stop 07/27/17 at 10:16; Status DC Furosemide (Lasix) 40 mg 1X ONCE IVP Last administered on 07/27/17 14:12; Start 07/27/17 at 14:00; Stop 07/27/17 at 14:01; Status DC Vancomycin HCl 1.5 gm/Sodium Chloride 500 ml @ 250 mls/hr Q24H IV ; Start 07/28 at 22:00; Stop 07/28/17 at 22:00; Status DC Vancomycin HCl 1 each 1X ONCE MC ; Start 07/30/17 at 21:30; Stop 07/30/17 at 21 :30; Status DC Acetaminophen (Tylenol) 650 mg PRN Q6HRS PRN PO FEVER > 100.5'F; Start at 05:30 Tamsulosin HCl (Flomax) 0.4 mg QHS PO ; Start 07/28/17 at 21:00; Status UNV Cefazolin Sodium/ Dextrose 50 ml @ 100 mls/hr Q8HRS IV Last administered on 10:31; Start 07/29/17 at 08:30 Polyethylene Glycol (miraLAX PACKET) 17 gm DAILY PO Last administered on 10:30; Start 07/29/17 at 09:00 Lorazepam (Ativan) 1 mg PRN Q4HRS PRN IV ANXIETY / AGITATION; Start 07/29/17 at 12:15 Active Scripts Active Colace (Docusate Sodium) 100 Mg Capsule 100 Mg PO BID 60 Days Methocarbamol 750 Mg Tablet 750 Mg PO TID 60 Days Hydrocodone-Apap 7.5-325 (Hydrocodone Bit/Acetaminophen) 1 Each Tablet 1 Tab PO PRN Q6HRS PRN 60 Days Reported Tamsulosin Hcl 0.4 Mg Cap.er.24h 0.4 Mg PO DAILY Metformin Hcl 500 Mg Tablet 500 Mg PO DAILYBFRSUP Gabapentin 100 Mg Capsule 100 Mg PO TID Lovastatin 20 Mg Tablet 1 Tab PO DAILY Mxgjhalglb-Rmtatwskdas-Bka Tab (Gluc/Jonah-Msm#2/C/D3/Vidal/Born) 1 Each Tablet 1 Each PO BID Glimepiride 1 Mg Tablet 0.5 Tab PO DAILY Losartan Potassium 100 Mg Tablet 100 Mg PO DAILY Diclofenac Sodium 75 Mg Tablet.dr 75 Mg PO BID Nitrostat (Nitroglycerin) 0.4 Mg Tab.subl 0.4 Mg SL PRN Viagra (Sildenafil Citrate) 100 Mg Tablet 100 Mg PO PRN Potassium Chloride 10 Meq Tablet.er 10 Meq PO DAILY Metformin Hcl 1,000 Mg Tablet 1,000 Mg PO DAILY08 Hydrochlorothiazide Tablet (Hydrochlorothiazide) 25 Mg Tablet 25 Mg PO DAILY Metoprolol Tartrate 100 Mg Tablet 50 Mg PO BID Flovent 50MCG Diskus (Fluticasone Propionate) 50 Mcg Disk.w.dev 50 Mcg IH DAILY Citalopram Hbr (Citalopram Hydrobromide) 20 Mg Tablet 20 Mg PO BID Nifedipine Er (Nifedipine) 90 Mg Tab.er.24 90 Mg PO DAILY Multivitamins (Multivitamin) 1 Each Tablet 1 Each PO DAILY Fish Oil 1,200 Mg Fish Oil (Fish Oil/Dha/Epa) 1 Each Capsule 1 Each PO BID Vitals/I & O Vital Sign - Last 24 Hours 07/28/17 07/28/17 07/28/17 07/28/17 19:25 19:30 19:35 20:00 Temp 99.5 99.2 99.2 99.5 99.2 99.2 Pulse 89 91 91 Resp 18 20 20 B/P (MAP) 131/69 (89) 117/58 (77) 121/56 (77) Pulse Ox 92 89 90 O2 Delivery Nasal Cannula Nasal Cannula Nasal Cannula Bi-pap O2 Flow Rate 3.0 3.0 3.0 07/28/17 07/28/17 07/28/17 07/29/17 21:17 21:53 23:15 01:07 Temp 99.0 99.0 Pulse 91 84 Resp 20 B/P (MAP) 121/56 141/77 (98) Pulse Ox 93 92 91 O2 Delivery Nasal Cannula BiPAP/CPAP BiPAP/CPAP O2 Flow Rate 5.0 07/29/17 07/29/17 07/29/17 07/29/17 01:45 02:15 03:20 07:00 Temp 98.5 97.9 98.5 97.9 Pulse 86 85 Resp 20 18 B/P (MAP) 147/81 (103) 145/72 (96) Pulse Ox 96 90 O2 Delivery BiPAP/CPAP BiPAP/CPAP BiPAP/CPAP Nasal Cannula O2 Flow Rate 4.0 07/29/17 07/29/17 07/29/17 07/29/17 08:19 10:27 10:29 10:29 Pulse 85 85 85 B/P (MAP) 145/72 145/72 145/72 Pulse Ox 92 O2 Delivery Nasal Cannula O2 Flow Rate 5.0 07/29/17 07/29/17 07/29/17 07/29/17 11:00 13:46 15:14 17:18 Temp 98.1 98.1 Pulse 92 Resp 18 B/P (MAP) 153/77 (102) Pulse Ox 95 98 98 95 O2 Delivery Nasal Cannula BiPAP/CPAP BiPAP/CPAP BiPAP/CPAP O2 Flow Rate 4.0 BRYCE DAILY MD Jul 29, 2017 18:26
[2017-07-29 19:15] VITALS: BP 141/74
[2017-07-29 19:30] LABS: HCO3 ABG 25 mmol/L (21-28); PCO2 ABG 33 mmHg (35-46); PO2 ABG 129 mmHg (65-108); SAT O2 ABG 98 % (92-99)
[2017-07-29] MEDS ORDERED: FUROSEMIDE 40 MG/4 ML VIAL. IVP ONE (19:45)
[2017-07-29] MEDS: ATORVASTATIN CALCIUM 10 MG TABLET. PO SCH (20:01)
[2017-07-29] MEDS: ACETAMINOPHEN 325 MG TABLET. PO PRN (20:02)
--- NOTE | 2017-07-29 21:22 | RAD ---
Exam performed: One view chest History CHF. DATE OF SERVICE: 07/29/2017. Comparison made to a single view chest from 07/26/2017. Single AP upright portable chest findings: Study somewhat limited due to positioning and poor inspiratory effort. Cardiomegaly. Central vascular congestion is noted. Interstitial and airspace opacities are seen in both perihilar regions. No pleural effusion or pneumothorax. IMPRESSION: Cardiomegaly with CHF. Electronically signed by: Marily Gordon MD (07/29/2017 9:18 PM) [facility]
[2017-07-29 22:09] VITALS: BP 138/70
[2017-07-30 02:30] VITALS: BP 124/66
[2017-07-30 06:13] LABS: BASO # 0.1 x10^3/uL (0.0-0.2); BASO % 1 % (0-3); EOS % 3 % (0-3); HEMATOCRIT 29.7 % (39.0-53.0); HEMOGLOBIN 10.3 g/dL (13.0-17.5); LYMPH # 0.8 x10^3/uL (1.0-4.8); LYMPH % 7 % (24-48); MEAN CORPUSCULAR HEMOGLOBIN 28 pg (25-35); MEAN CORPUSCULAR HGB CONC 35 g/dL (31-37); MEAN CORPUSCULAR VOLUME 81 fL (79-100); MONO % 11 % (0-9); NEUT % 79 % (31-73); PLATELET COUNT 258 x10^3/uL (140-400); RED BLOOD COUNT 3.68 x10^6/uL (4.30-5.70); RED CELL DISTRIBUTION WIDTH 14.2 % (11.5-14.5); WHITE BLOOD COUNT 11.8 x10^3/uL (4.0-11.0)
[2017-07-30 06:15] LABS: CALCIUM 8.3 mg/dL (8.5-10.1); CREATININE 1.1 mg/dL (0.7-1.3); GFR 66.2; POTASSIUM 3.1 mmol/L (3.5-5.1)
[2017-07-30 07:00] VITALS: BP 146/77
[2017-07-30] MEDS: INSULIN ASPART 300 UNITS/3 ML INSULN.PEN SQ SCH ×3 (08:00→17:31)
[2017-07-30] MEDS: IPRATRPIUM/ALBUTEROL 0.5/2.5MG 3 ML NEBU. NEB SCH ×4 (08:00→20:11)
[2017-07-30] MEDS: FLUTICASONE 50MCG/NASAL SPRAY 16GM BOTTLE. NS SCH (08:16)
[2017-07-30] MEDS: POLYETHYLENE GLYCOL 3350 17 GM PACKET. PO SCH (08:16)
[2017-07-30] MEDS: MULTIVITAMIN with MINERAL TABLET. PO SCH (08:17)
[2017-07-30] MEDS: GABAPENTIN 100 MG CAPSULE. PO SCH ×3 (08:17→20:26)
[2017-07-30] MEDS: OMEGA-3 FATTY ACIDS/FISH OIL 1,000 MG CAPSULE. PO SCH ×2 (08:18→20:26)
[2017-07-30] MEDS: POTASSIUM CHLORIDE 20 MEQ TABLET.ER. PO SCH (08:18)
[2017-07-30] MEDS: GLIMEPIRIDE 2 MG TABLET. PO SCH (08:18)
[2017-07-30] MEDS: TAMSULOSIN 0.4 MG CAP.ER.24H. PO SCH (08:18)
[2017-07-30] MEDS: METOPROLOL TART IMMED RELEASE 50 MG TABLET. PO SCH ×2 (08:19→20:27)
[2017-07-30] MEDS: DOCUSATE SODIUM 100 MG CAPSULE. PO SCH ×2 (08:19→20:26)
[2017-07-30] MEDS: CITALOPRAM 20 MG TABLET. PO SCH ×2 (08:19→20:26)
[2017-07-30] MEDS: LOSARTAN POTASSIUM 50 MG TABLET. PO SCH (08:20)
[2017-07-30] MEDS ORDERED: POTASSIUM CHLORIDE 20 MEQ TABLET.ER. PO ONE (09:00)
--- NOTE | 2017-07-30 09:28 | PDOC ---
Infectious Disease Note Subjective Subjective Better but had a rough night with the bipap Still some back pain Supplemental O2 ROS ROS GEN: Denies fevers, chills, sweats HEENT: Denies blurred vision, sore throat CV: Denies chest pain RESP: Denies shortness of air, cough GI: Denies n/v/d NEURO: Denies confusion, dizziness MSK: Denies weakness, joint pain/swelling Vital Sign Vital Signs Vital Signs Date Time Temp Pulse Resp B/P (MAP) Pulse Ox O2 Delivery O2 Flow Rate FiO2 07/30/17 08:20 87 146/77 07/30/17 07:00 99.0 20 90 Nasal Cannula 2.0 99.0 Physical Exam PHYSICAL EXAM GENERAL: NAD, Alert HEENT: PERRL, OC/OP - clear NECK: Supple, no JVD, no LN LUNGS: Clear HEART: S1S2, no gallop, no murmur ABD: Soft, NT, no organomegaly, no rebound, distended some still Ortiz EXT: No edema, no cyanosis [employer]: Alert, oriented x 3, no focal neurologic deficit SKIN: No rash IV: ok Labs Lab Laboratory Tests Test 07/29/17 19:25 07/29/17 22:28 07/30/17 04:25 07/30/17 07:35 O2 Saturation 98 % (92-99) Arterial Blood pH 7.50 (7.35-7.45) Arterial Blood pCO2 at Patient Temp 33 mmHg (35-46) Arterial Blood pO2 at Patient Temp 129 mmHg (65-108) Arterial Blood HCO3 25 mmol/L (21-28) Arterial Blood Base Excess 2 mmol/L (-3-3) FiO2 60.0 Glucose (Fingerstick) 128 mg/dL (70-99) 113 mg/dL (70-99) White Blood Count 11.8 x10^3/uL (4.0-11.0) Red Blood Count 3.68 x10^6/uL (4.30-5.70) Hemoglobin 10.3 g/dL (13.0-17.5) Hematocrit 29.7 % (39.0-53.0) Mean Corpuscular Volume 81 fL (79-100) Mean Corpuscular Hemoglobin 28 pg (25-35) Mean Corpuscular Hemoglobin Concent 35 g/dL (31-37) Red Cell Distribution Width 14.2 % (11.5-14.5) Platelet Count 258 x10^3/uL (140-400) Neutrophils (%) (Auto) 79 % (31-73) Lymphocytes (%) (Auto) 7 % (24-48) Monocytes (%) (Auto) 11 % (0-9) Eosinophils (%) (Auto) 3 % (0-3) Basophils (%) (Auto) 1 % (0-3) Neutrophils # (Auto) 9.4 x10^3uL (1.8-7.7) Lymphocytes # (Auto) 0.8 x10^3/uL (1.0-4.8) Monocytes # (Auto) 1.3 x10^3/uL (0.0-1.1) Eosinophils # (Auto) 0.3 x10^3/uL (0.0-0.7) Basophils # (Auto) 0.1 x10^3/uL (0.0-0.2) Sodium Level 134 mmol/L (136-145) Potassium Level 3.1 mmol/L (3.5-5.1) Chloride Level 96 mmol/L (98-107) Carbon Dioxide Level 31 mmol/L (21-32) Anion Gap 7 (6-14) Blood Urea Nitrogen 26 mg/dL (8-26) Creatinine 1.1 mg/dL (0.7-1.3) Estimated GFR (Cockcroft-Gault) 66.2 Glucose Level 110 mg/dL (70-99) Calcium Level 8.3 mg/dL (8.5-10.1) Objective Assessment Staph aureus (MSSA ID'd 07/28 afternoon. Vanc d/cd) bacteremia, POA, 07/25. ECHO without gross valvular disease 07/28 Fever ? infection vs cardiac event. - better Leukocytosis - mild increase. ? reactive - better Encephalopathy - ? illness vs meds - better with Bipap Constipation Urinary retention - ortiz placed 07/27 Elevated Troponin/CK- NSTEMI Back pain and h/o MSSA infection. s/p fall prior to admit now with fluid collection on MRI. Reviewed Dr. Gu's note PCN allergy - tolerated Cefazolin Hyponatremia - better Plan Plan of Care Repeat blood cult pending from 07/28 am. If neg for 48 to 72 hours can have cardiac cath if not emergently needed prior to that Relieve constipation Cont Cefazolin Miralax Monitor renal function, WBC and temp Await further Neurosurgery f/u D/w JANEE HSIEH MD Jul 30, 2017 09:28
--- NOTE | 2017-07-30 09:53 | PDOC ---
PROGRESS NOTES Subjective Subjective He admits low back pain. Objective Objective Vital Signs Date Time Temp Pulse Resp B/P (MAP) Pulse Ox O2 Delivery O2 Flow Rate FiO2 07/30/17 08:20 87 146/77 07/30/17 07:00 99.0 20 90 Nasal Cannula 2.0 99.0 Intake and Output 07/31/17 07:00 Intake Total 450 ml Output Total 550 ml Balance -100 ml Intake Oral 450 ml Output Urine Total 550 ml Physical Exam Physical Exam He is supine in bed awake but continues with cognitive deficits,most probably from chronic hypoxia with associated mild dementia.Some agitation was noted on occasion requiring one on one supervision. Plan Plan of Care To continue present physical,occupational and speech pathology follow up as tolerated. Comment Review of Relevant I have reviewed the following items kyler (where applicable) has been applied. Labs Laboratory Tests Test 07/28/17 12:43 07/28/17 17:03 07/28/17 20:32 07/29/17 04:25 Glucose (Fingerstick) 87 mg/dL (70-99) 150 mg/dL (70-99) 144 mg/dL (70-99) White Blood Count 14.2 x10^3/uL (4.0-11.0) Red Blood Count 3.78 x10^6/uL (4.30-5.70) Hemoglobin 10.8 g/dL (13.0-17.5) Hematocrit 30.9 % (39.0-53.0) Mean Corpuscular Volume 82 fL (79-100) Mean Corpuscular Hemoglobin 29 pg (25-35) Mean Corpuscular Hemoglobin Concent 35 g/dL (31-37) Red Cell Distribution Width 14.2 % (11.5-14.5) Platelet Count 233 x10^3/uL (140-400) Neutrophils (%) (Auto) 88 % (31-73) Lymphocytes (%) (Auto) 4 % (24-48) Monocytes (%) (Auto) 8 % (0-9) Eosinophils (%) (Auto) 1 % (0-3) Basophils (%) (Auto) 0 % (0-3) Neutrophils # (Auto) 12.4 x10^3uL (1.8-7.7) Lymphocytes # (Auto) 0.5 x10^3/uL (1.0-4.8) Monocytes # (Auto) 1.2 x10^3/uL (0.0-1.1) Eosinophils # (Auto) 0.1 x10^3/uL (0.0-0.7) Basophils # (Auto) 0.0 x10^3/uL (0.0-0.2) Sodium Level 132 mmol/L (136-145) Potassium Level 3.5 mmol/L (3.5-5.1) Chloride Level 95 mmol/L (98-107) Carbon Dioxide Level 26 mmol/L (21-32) Anion Gap 11 (6-14) Blood Urea Nitrogen 30 mg/dL (8-26) Creatinine 1.3 mg/dL (0.7-1.3) Estimated GFR (Cockcroft-Gault) 54.6 Glucose Level 154 mg/dL (70-99) Calcium Level 8.4 mg/dL (8.5-10.1) Test 07/29/17 07:11 07/29/17 19:25 07/29/17 22:28 07/30/17 04:25 Glucose (Fingerstick) 138 mg/dL (70-99) 128 mg/dL (70-99) O2 Saturation 98 % (92-99) Arterial Blood pH 7.50 (7.35-7.45) Arterial Blood pCO2 at Patient Temp 33 mmHg (35-46) Arterial Blood pO2 at Patient Temp 129 mmHg (65-108) Arterial Blood HCO3 25 mmol/L (21-28) Arterial Blood Base Excess 2 mmol/L (-3-3) FiO2 60.0 White Blood Count 11.8 x10^3/uL (4.0-11.0) Red Blood Count 3.68 x10^6/uL (4.30-5.70) Hemoglobin 10.3 g/dL (13.0-17.5) Hematocrit 29.7 % (39.0-53.0) Mean Corpuscular Volume 81 fL (79-100) Mean Corpuscular Hemoglobin 28 pg (25-35) Mean Corpuscular Hemoglobin Concent 35 g/dL (31-37) Red Cell Distribution Width 14.2 % (11.5-14.5) Platelet Count 258 x10^3/uL (140-400) Neutrophils (%) (Auto) 79 % (31-73) Lymphocytes (%) (Auto) 7 % (24-48) Monocytes (%) (Auto) 11 % (0-9) Eosinophils (%) (Auto) 3 % (0-3) Basophils (%) (Auto) 1 % (0-3) Neutrophils # (Auto) 9.4 x10^3uL (1.8-7.7) Lymphocytes # (Auto) 0.8 x10^3/uL (1.0-4.8) Monocytes # (Auto) 1.3 x10^3/uL (0.0-1.1) Eosinophils # (Auto) 0.3 x10^3/uL (0.0-0.7) Basophils # (Auto) 0.1 x10^3/uL (0.0-0.2) Sodium Level 134 mmol/L (136-145) Potassium Level 3.1 mmol/L (3.5-5.1) Chloride Level 96 mmol/L (98-107) Carbon Dioxide Level 31 mmol/L (21-32) Anion Gap 7 (6-14) Blood Urea Nitrogen 26 mg/dL (8-26) Creatinine 1.1 mg/dL (0.7-1.3) Estimated GFR (Cockcroft-Gault) 66.2 Glucose Level 110 mg/dL (70-99) Calcium Level 8.3 mg/dL (8.5-10.1) Test 07/30/17 07:35 Glucose (Fingerstick) 113 mg/dL (70-99) Laboratory Tests Test 07/29/17 19:25 07/29/17 22:28 07/30/17 04:25 07/30/17 07:35 O2 Saturation 98 % (92-99) Arterial Blood pH 7.50 (7.35-7.45) Arterial Blood pCO2 at Patient Temp 33 mmHg (35-46) Arterial Blood pO2 at Patient Temp 129 mmHg (65-108) Arterial Blood HCO3 25 mmol/L (21-28) Arterial Blood Base Excess 2 mmol/L (-3-3) FiO2 60.0 Glucose (Fingerstick) 128 mg/dL (70-99) 113 mg/dL (70-99) White Blood Count 11.8 x10^3/uL (4.0-11.0) Red Blood Count 3.68 x10^6/uL (4.30-5.70) Hemoglobin 10.3 g/dL (13.0-17.5) Hematocrit 29.7 % (39.0-53.0) Mean Corpuscular Volume 81 fL (79-100) Mean Corpuscular Hemoglobin 28 pg (25-35) Mean Corpuscular Hemoglobin Concent 35 g/dL (31-37) Red Cell Distribution Width 14.2 % (11.5-14.5) Platelet Count 258 x10^3/uL (140-400) Neutrophils (%) (Auto) 79 % (31-73) Lymphocytes (%) (Auto) 7 % (24-48) Monocytes (%) (Auto) 11 % (0-9) Eosinophils (%) (Auto) 3 % (0-3) Basophils (%) (Auto) 1 % (0-3) Neutrophils # (Auto) 9.4 x10^3uL (1.8-7.7) Lymphocytes # (Auto) 0.8 x10^3/uL (1.0-4.8) Monocytes # (Auto) 1.3 x10^3/uL (0.0-1.1) Eosinophils # (Auto) 0.3 x10^3/uL (0.0-0.7) Basophils # (Auto) 0.1 x10^3/uL (0.0-0.2) Sodium Level 134 mmol/L (136-145) Potassium Level 3.1 mmol/L (3.5-5.1) Chloride Level 96 mmol/L (98-107) Carbon Dioxide Level 31 mmol/L (21-32) Anion Gap 7 (6-14) Blood Urea Nitrogen 26 mg/dL (8-26) Creatinine 1.1 mg/dL (0.7-1.3) Estimated GFR (Cockcroft-Gault) 66.2 Glucose Level 110 mg/dL (70-99) Calcium Level 8.3 mg/dL (8.5-10.1) Microbiology 07/28/17 Blood Culture - Preliminary, Resulted NO GROWTH AFTER 2 DAYS Medications Current Medications Citalopram Hydrobromide (CeleXA) 20 mg BID PO Last administered on 07/30/17 08 :19; Start 07/25/17 at 21:00 Docusate Sodium (Colace) 100 mg BID PO Last administered on 07/30/17 08:19; Start 07/25/17 at 21:00 Gabapentin (Neurontin) 100 mg TID PO Last administered on 07/30/17 08:17; Start 07/25/17 at 21:00 Hydrochlorothiazide (Hydrodiuril) 25 mg DAILY PO Last administered on 08:30; Start 07/26/17 at 09:00; Stop 07/27/17 at 14:23; Status DC Acetaminophen/ Hydrocodone Bitart (Lortab 7.5/325) 1 tab PRN Q6HRS PRN PO PAIN Last administered on 07/27/17 07:40; Start 07/25/17 at 19:45 Metformin HCl (Glucophage) 1,000 mg DAILY08 PO Last administered on 07/30/17 08:18; Start 07/26/17 at 08:00 Metformin HCl (Glucophage) 500 mg DAILYBFRSUP PO Last administered on 18:39; Start 07/26/17 at 17:00 Methocarbamol (Robaxin) 750 mg TID PO Last administered on 07/26/17 08:38; Start 07/25/17 at 21:00; Stop 07/26/17 at 18:44; Status DC Potassium Chloride (Klor-Con) 10 meq DAILYWBKFT PO Last administered on 08:33; Start 07/26/17 at 08:00; Stop 07/26/17 at 08:55; Status DC Tamsulosin HCl (Flomax) 0.4 mg DAILY PO Last administered on 07/30/17 08:18; Start 07/26/17 at 09:00 Diclofenac Sodium (Voltaren) 75 mg BID PO Last administered on 07/28/17 09:04 ; Start 07/25/17 at 21:00; Stop 07/28/17 at 19:45; Status DC Fish Oil (Fish Oil) 1,000 mg BID PO Last administered on 07/30/17 08:18; Start 07/25/17 at 21:00 Fluticasone Propionate (Flonase) 2 spray DAILY NS Last administered on 08:16; Start 07/26/17 at 09:00 Glimepiride (Amaryl) 0.5 mg DAILY PO Last administered on 07/30/17 08:18; Start 07/26/17 at 09:00 Non-Formulary Medication 1 each BID PO ; Start 07/25/17 at 21:00; Status UNV Losartan Potassium (Cozaar) 100 mg DAILY PO Last administered on 07/30/17 08: 20; Start 07/26/17 at 09:00 Atorvastatin Calcium (Lipitor) 5 mg QHS PO Last administered on 07/29/17 20:01 ; Start 07/25/17 at 21:00 Metoprolol Tartrate (Lopressor) 50 mg BID PO Last administered on 07/30/17 08: 19; Start 07/25/17 at 21:00 Multivitamins (Thera M Plus) 1 tab DAILY PO Last administered on 07/30/17 08: 17; Start 07/26/17 at 09:00 Nifedipine (Procardia Xl) 90 mg DAILY PO Last administered on 07/30/17 08:17; Start 07/26/17 at 09:00 Sodium Chloride 1,000 ml @ 1,000 mls/hr 1X ONCE IV Last administered on 21:56; Start 07/25/17 at 19:45; Stop 07/25/17 at 20:44; Status DC Potassium Chloride (Klor-Con) 40 meq 1X ONCE PO Last administered on 21:41; Start 07/25/17 at 19:45; Stop 07/25/17 at 19:48; Status DC Sodium Chloride 1,000 ml @ 100 mls/hr 1X ONCE IV Last administered on 21:53; Start 07/25/17 at 19:45; Stop 07/26/17 at 05:44; Status DC Insulin Aspart (NovoLOG) 0-7 UNITS TIDWMEALS SQ Last administered on 07/27/17 16:58; Start 07/26/17 at 08:00 Dextrose (Dextrose 50%-Water Syringe) 12.5 gm PRN Q15MIN PRN IV SEE COMMENTS; Start 07/25/17 at 20:00 Info (Do NOT chart on this placeholder) 0.5 each 1X ONCE MC ; Start 07/26/17 at 09:00; Stop 07/26/17 at 09:01; Status UNV Influenza Virus Vaccine Quadrival (Fluarix Quad [id number] Syringe) 0.5 ml ONCE ONCE VAX IM Last administered on 07/28/17 09:31; Start 07/26/17 at 09:00; Stop 07/26/17 at 09:01; Status DC Albuterol/ Ipratropium (Duoneb) 3 ml RTQID NEB Last administered on 07/29/17 19:40; Start 07/26/17 at 08:00 Albuterol Sulfate (Ventolin Neb Soln) 2.5 mg PRN Q2HRS PRN NEB SHORTNESS OF BREATH Last administered on 07/26/17 02:00; Start 07/26/17 at 01:30 Enoxaparin Sodium (Lovenox 100mg Syringe) 100 mg 1X ONCE SQ Last administered on 07/26/17 02:08; Start 07/26/17 at 02:00; Stop 07/26/17 at 02:04; Status DC Heparin Sodium/ Dextrose 500 ml @ 0 mls/hr CONT PRN IV SEE I/O RECORD Last administered on 07/26/17 03:42; Start 07/26/17 at 03:30; Stop 07/28/17 at 08:16 ; Status DC Heparin Sodium (Porcine) (Heparin Sodium) 2,450 unit PRN Q6HRS PRN IV FOR UFH LEVEL LESS THAN 0.2; Start 07/26/17 at 03:30; Stop 07/28/17 at 08:16; Status DC Info (Anti-Coagulation Monitoring By Pharmacy) 1 each PRN DAILY PRN MC SEE COMMENTS Last administered on 07/27/17 10:04; Start 07/26/17 at 03:30; Stop at 08:16; Status DC Vancomycin HCl (Vanco Per Pharmacy) 1 each PRN DAILY PRN MC SEE COMMENTS Last administered on 07/28/17 00:18; Start 07/26/17 at 08:15; Stop 07/28/17 at 12:53 ; Status DC Meropenem 1 gm/ Sodium Chloride 100 ml @ 200 mls/hr Q8HRS IV Last administered on 07/29/17 05:54; Start 07/26/17 at 08:30; Stop 07/29/17 at 08:23 ; Status DC Vancomycin HCl 2 gm/Sodium Chloride 500 ml @ 250 mls/hr 1X ONCE IV Last administered on 07/26/17 09:27; Start 07/26/17 at 08:30; Stop 07/26/17 at 10:29 ; Status DC Potassium Chloride (Klor-Con) 40 meq DAILYWBKFT PO Last administered on 08:18; Start 07/26/17 at 09:30 Vancomycin HCl 1.25 gm/Sodium Chloride 250 ml @ 167 mls/hr Q12H IV Last administered on 07/27/17 21:37; Start 07/26/17 at 22:00; Stop 07/28/17 at 01:00 ; Status DC Vancomycin HCl 1 each 1X ONCE MC Last administered on 07/27/17 21:30; Start 07/27/17 at 21:30; Stop 07/27/17 at 21:31; Status DC Furosemide (Lasix) 40 mg 1X ONCE IVP Last administered on 07/26/17 11:47; Start 07/26/17 at 11:30; Stop 07/26/17 at 11:31; Status DC Gadobutrol (Gadavist) 10 mmol 1X ONCE IV Last administered on 07/26/17 16:19 ; Start 07/26/17 at 16:15; Stop 07/26/17 at 16:16; Status DC Morphine Sulfate 3 mg PRN Q3HRS PRN IV PAIN Last administered on 07/29/17 01: 45; Start 07/27/17 at 08:30 Morphine Sulfate 4 mg PRN Q3HRS PRN IV PAIN; Start 07/27/17 at 08:30 Morphine Sulfate 5 mg PRN Q3HRS PRN IV PAIN; Start 07/27/17 at 08:45 Gadobutrol (Gadavist) 9 mmol 1X ONCE IV Last administered on 07/27/17 10:37; Start 07/27/17 at 10:15; Stop 07/27/17 at 10:16; Status DC Furosemide (Lasix) 40 mg 1X ONCE IVP Last administered on 07/27/17 14:12; Start 07/27/17 at 14:00; Stop 07/27/17 at 14:01; Status DC Vancomycin HCl 1.5 gm/Sodium Chloride 500 ml @ 250 mls/hr Q24H IV ; Start 07/28 at 22:00; Stop 07/28/17 at 22:00; Status DC Vancomycin HCl 1 each 1X ONCE MC ; Start 07/30/17 at 21:30; Stop 07/30/17 at 21 :30; Status DC Acetaminophen (Tylenol) 650 mg PRN Q6HRS PRN PO FEVER > 100.5'F Last administered on 07/29/17 20:02; Start 07/28/17 at 05:30 Tamsulosin HCl (Flomax) 0.4 mg QHS PO ; Start 07/28/17 at 21:00; Status UNV Cefazolin Sodium/ Dextrose 50 ml @ 100 mls/hr Q8HRS IV Last administered on 05:49; Start 07/29/17 at 08:30 Polyethylene Glycol (miraLAX PACKET) 17 gm DAILY PO Last administered on 08:16; Start 07/29/17 at 09:00 Lorazepam (Ativan) 1 mg PRN Q4HRS PRN IV ANXIETY / AGITATION; Start 07/29/17 at 12:15 Furosemide (Lasix) 40 mg 1X ONCE IVP Last administered on 07/29/17 20:03; Start 07/29/17 at 19:45; Stop 07/29/17 at 19:46; Status DC Potassium Chloride (Klor-Con) 40 meq 1X ONCE PO ; Start 07/30/17 at 09:00; Stop 07/30/17 at 09:01; Status DC Active Scripts Active Colace (Docusate Sodium) 100 Mg Capsule 100 Mg PO BID 60 Days Methocarbamol 750 Mg Tablet 750 Mg PO TID 60 Days Hydrocodone-Apap 7.5-325 (Hydrocodone Bit/Acetaminophen) 1 Each Tablet 1 Tab PO PRN Q6HRS PRN 60 Days Reported Tamsulosin Hcl 0.4 Mg Cap.er.24h 0.4 Mg PO DAILY Metformin Hcl 500 Mg Tablet 500 Mg PO DAILYBFRSUP Gabapentin 100 Mg Capsule 100 Mg PO TID Lovastatin 20 Mg Tablet 1 Tab PO DAILY Tsljhaatpa-Aepgbgsqnhr-Wln Tab (Gluc/Jonah-Msm#2/C/D3/Vidal/Born) 1 Each Tablet 1 Each PO BID Glimepiride 1 Mg Tablet 0.5 Tab PO DAILY Losartan Potassium 100 Mg Tablet 100 Mg PO DAILY Diclofenac Sodium 75 Mg Tablet.dr 75 Mg PO BID Nitrostat (Nitroglycerin) 0.4 Mg Tab.subl 0.4 Mg SL PRN Viagra (Sildenafil Citrate) 100 Mg Tablet 100 Mg PO PRN Potassium Chloride 10 Meq Tablet.er 10 Meq PO DAILY Metformin Hcl 1,000 Mg Tablet 1,000 Mg PO DAILY08 Hydrochlorothiazide Tablet (Hydrochlorothiazide) 25 Mg Tablet 25 Mg PO DAILY Metoprolol Tartrate 100 Mg Tablet 50 Mg PO BID Flovent 50MCG Diskus (Fluticasone Propionate) 50 Mcg Disk.w.dev 50 Mcg IH DAILY Citalopram Hbr (Citalopram Hydrobromide) 20 Mg Tablet 20 Mg PO BID Nifedipine Er (Nifedipine) 90 Mg Tab.er.24 90 Mg PO DAILY Multivitamins (Multivitamin) 1 Each Tablet 1 Each PO DAILY Fish Oil 1,200 Mg Fish Oil (Fish Oil/Dha/Epa) 1 Each Capsule 1 Each PO BID Vitals/I & O Vital Sign - Last 24 Hours 07/29/17 07/29/17 07/29/17 07/29/17 10:27 10:29 10:29 11:00 Temp 98.1 98.1 Pulse 85 85 85 92 Resp 18 B/P (MAP) 145/72 145/72 145/72 153/77 (102) Pulse Ox 95 O2 Delivery Nasal Cannula O2 Flow Rate 4.0 07/29/17 07/29/17 07/29/17 07/29/17 13:46 15:14 17:18 19:15 Temp 99.4 99.4 Pulse 86 Resp 18 B/P (MAP) 141/74 (96) Pulse Ox 98 98 95 99 O2 Delivery BiPAP/CPAP BiPAP/CPAP BiPAP/CPAP BiPAP/CPAP 07/29/17 07/29/17 07/29/17 07/29/17 19:36 19:40 20:00 20:03 Temp 99.2 99.2 Pulse 86 B/P (MAP) 141/74 Pulse Ox 98 O2 Delivery BiPAP/CPAP Bi-pap O2 Flow Rate 4.0 07/29/17 07/29/17 07/29/17 07/30/17 22:09 22:16 23:25 01:06 Temp 99.1 99.1 Pulse 76 Resp 18 B/P (MAP) 138/70 (92) Pulse Ox 99 99 99 99 O2 Delivery BiPAP/CPAP BiPAP/CPAP BiPAP/CPAP BiPAP/CPAP 07/30/17 07/30/17 07/30/17 07/30/17 02:30 03:40 05:45 07:00 Temp 98.7 99.0 98.7 99.0 Pulse 69 87 Resp 16 20 B/P (MAP) 124/66 (85) 146/77 (100) Pulse Ox 98 98 97 90 O2 Delivery BiPAP/CPAP BiPAP/CPAP BiPAP/CPAP Nasal Cannula O2 Flow Rate 2.0 07/30/17 07/30/17 07/30/17 08:17 08:19 08:20 Pulse 87 87 87 B/P (MAP) 146/77 146/77 146/77 Intake and Output 07/30/17 07/30/17 07/31/17 15:00 23:00 07:00 Intake Total 450 ml Output Total 550 ml Balance -100 ml EVERETT FRENCH MD Jul 30, 2017 09:53
--- NOTE | 2017-07-30 10:21 | PDOC ---
PROGRESS NOTES Assessment Chronic back pain, MRI lumbar spine shows spinal stenosis Metabolic encephalopathy,memory loss, better today, also has had some hypoxia, Labs for other causes negative. He did require some Ativan yesterday for agitation. Complains of claustrophobic feeling from the CPAP mask Plan I encouraged the patient to get up and around in physical therapy to stretch his muscles and avoid the claustrophobia SNU Follow-up with me in 6 weeks Back pain management per Dr. Courtney Discussed with Dr. Osborne Subjective Complains of claustrophobia from the CPAP mask, feels crampy. Objective Vital Signs Date Time Temp Pulse Resp B/P (MAP) Pulse Ox O2 Delivery O2 Flow Rate FiO2 07/30/17 08:20 87 146/77 07/30/17 07:00 99.0 20 90 Nasal Cannula 2.0 99.0 Intake and Output 07/31/17 07:00 Intake Total 650 ml Output Total 550 ml Balance 100 ml Intake Oral 650 ml Output Urine Total 550 ml PHYSICAL EXAM Alert. Oriented to time (2 days off on the date), place and person. PERRL. EOMI. CN: no focal findings. Muscle tone: normal. Muscle strength: 5/5 DTR: 1+ Plantar reflex: flexor Gait: not examined in bed. Sensory exam: no abnormal findings. No cerebellar signs elicited. Review of Relevant I have reviewed the following items kyler (where applicable) has been applied. Labs Laboratory Tests Test 07/28/17 12:43 07/28/17 17:03 07/28/17 20:32 07/29/17 04:25 Glucose (Fingerstick) 87 mg/dL (70-99) 150 mg/dL (70-99) 144 mg/dL (70-99) White Blood Count 14.2 x10^3/uL (4.0-11.0) Red Blood Count 3.78 x10^6/uL (4.30-5.70) Hemoglobin 10.8 g/dL (13.0-17.5) Hematocrit 30.9 % (39.0-53.0) Mean Corpuscular Volume 82 fL (79-100) Mean Corpuscular Hemoglobin 29 pg (25-35) Mean Corpuscular Hemoglobin Concent 35 g/dL (31-37) Red Cell Distribution Width 14.2 % (11.5-14.5) Platelet Count 233 x10^3/uL (140-400) Neutrophils (%) (Auto) 88 % (31-73) Lymphocytes (%) (Auto) 4 % (24-48) Monocytes (%) (Auto) 8 % (0-9) Eosinophils (%) (Auto) 1 % (0-3) Basophils (%) (Auto) 0 % (0-3) Neutrophils # (Auto) 12.4 x10^3uL (1.8-7.7) Lymphocytes # (Auto) 0.5 x10^3/uL (1.0-4.8) Monocytes # (Auto) 1.2 x10^3/uL (0.0-1.1) Eosinophils # (Auto) 0.1 x10^3/uL (0.0-0.7) Basophils # (Auto) 0.0 x10^3/uL (0.0-0.2) Sodium Level 132 mmol/L (136-145) Potassium Level 3.5 mmol/L (3.5-5.1) Chloride Level 95 mmol/L (98-107) Carbon Dioxide Level 26 mmol/L (21-32) Anion Gap 11 (6-14) Blood Urea Nitrogen 30 mg/dL (8-26) Creatinine 1.3 mg/dL (0.7-1.3) Estimated GFR (Cockcroft-Gault) 54.6 Glucose Level 154 mg/dL (70-99) Calcium Level 8.4 mg/dL (8.5-10.1) Test 07/29/17 07:11 07/29/17 19:25 07/29/17 22:28 07/30/17 04:25 Glucose (Fingerstick) 138 mg/dL (70-99) 128 mg/dL (70-99) O2 Saturation 98 % (92-99) Arterial Blood pH 7.50 (7.35-7.45) Arterial Blood pCO2 at Patient Temp 33 mmHg (35-46) Arterial Blood pO2 at Patient Temp 129 mmHg (65-108) Arterial Blood HCO3 25 mmol/L (21-28) Arterial Blood Base Excess 2 mmol/L (-3-3) FiO2 60.0 White Blood Count 11.8 x10^3/uL (4.0-11.0) Red Blood Count 3.68 x10^6/uL (4.30-5.70) Hemoglobin 10.3 g/dL (13.0-17.5) Hematocrit 29.7 % (39.0-53.0) Mean Corpuscular Volume 81 fL (79-100) Mean Corpuscular Hemoglobin 28 pg (25-35) Mean Corpuscular Hemoglobin Concent 35 g/dL (31-37) Red Cell Distribution Width 14.2 % (11.5-14.5) Platelet Count 258 x10^3/uL (140-400) Neutrophils (%) (Auto) 79 % (31-73) Lymphocytes (%) (Auto) 7 % (24-48) Monocytes (%) (Auto) 11 % (0-9) Eosinophils (%) (Auto) 3 % (0-3) Basophils (%) (Auto) 1 % (0-3) Neutrophils # (Auto) 9.4 x10^3uL (1.8-7.7) Lymphocytes # (Auto) 0.8 x10^3/uL (1.0-4.8) Monocytes # (Auto) 1.3 x10^3/uL (0.0-1.1) Eosinophils # (Auto) 0.3 x10^3/uL (0.0-0.7) Basophils # (Auto) 0.1 x10^3/uL (0.0-0.2) Sodium Level 134 mmol/L (136-145) Potassium Level 3.1 mmol/L (3.5-5.1) Chloride Level 96 mmol/L (98-107) Carbon Dioxide Level 31 mmol/L (21-32) Anion Gap 7 (6-14) Blood Urea Nitrogen 26 mg/dL (8-26) Creatinine 1.1 mg/dL (0.7-1.3) Estimated GFR (Cockcroft-Gault) 66.2 Glucose Level 110 mg/dL (70-99) Calcium Level 8.3 mg/dL (8.5-10.1) Test 07/30/17 07:35 Glucose (Fingerstick) 113 mg/dL (70-99) Laboratory Tests Test 07/29/17 19:25 07/29/17 22:28 07/30/17 04:25 07/30/17 07:35 O2 Saturation 98 % (92-99) Arterial Blood pH 7.50 (7.35-7.45) Arterial Blood pCO2 at Patient Temp 33 mmHg (35-46) Arterial Blood pO2 at Patient Temp 129 mmHg (65-108) Arterial Blood HCO3 25 mmol/L (21-28) Arterial Blood Base Excess 2 mmol/L (-3-3) FiO2 60.0 Glucose (Fingerstick) 128 mg/dL (70-99) 113 mg/dL (70-99) White Blood Count 11.8 x10^3/uL (4.0-11.0) Red Blood Count 3.68 x10^6/uL (4.30-5.70) Hemoglobin 10.3 g/dL (13.0-17.5) Hematocrit 29.7 % (39.0-53.0) Mean Corpuscular Volume 81 fL (79-100) Mean Corpuscular Hemoglobin 28 pg (25-35) Mean Corpuscular Hemoglobin Concent 35 g/dL (31-37) Red Cell Distribution Width 14.2 % (11.5-14.5) Platelet Count 258 x10^3/uL (140-400) Neutrophils (%) (Auto) 79 % (31-73) Lymphocytes (%) (Auto) 7 % (24-48) Monocytes (%) (Auto) 11 % (0-9) Eosinophils (%) (Auto) 3 % (0-3) Basophils (%) (Auto) 1 % (0-3) Neutrophils # (Auto) 9.4 x10^3uL (1.8-7.7) Lymphocytes # (Auto) 0.8 x10^3/uL (1.0-4.8) Monocytes # (Auto) 1.3 x10^3/uL (0.0-1.1) Eosinophils # (Auto) 0.3 x10^3/uL (0.0-0.7) Basophils # (Auto) 0.1 x10^3/uL (0.0-0.2) Sodium Level 134 mmol/L (136-145) Potassium Level 3.1 mmol/L (3.5-5.1) Chloride Level 96 mmol/L (98-107) Carbon Dioxide Level 31 mmol/L (21-32) Anion Gap 7 (6-14) Blood Urea Nitrogen 26 mg/dL (8-26) Creatinine 1.1 mg/dL (0.7-1.3) Estimated GFR (Cockcroft-Gault) 66.2 Glucose Level 110 mg/dL (70-99) Calcium Level 8.3 mg/dL (8.5-10.1) Microbiology 07/28/17 Blood Culture - Preliminary, Resulted NO GROWTH AFTER 2 DAYS Medications Current Medications Citalopram Hydrobromide (CeleXA) 20 mg BID PO Last administered on 07/30/17 08 :19; Start 07/25/17 at 21:00 Docusate Sodium (Colace) 100 mg BID PO Last administered on 07/30/17 08:19; Start 07/25/17 at 21:00 Gabapentin (Neurontin) 100 mg TID PO Last administered on 07/30/17 08:17; Start 07/25/17 at 21:00 Hydrochlorothiazide (Hydrodiuril) 25 mg DAILY PO Last administered on 08:30; Start 07/26/17 at 09:00; Stop 07/27/17 at 14:23; Status DC Acetaminophen/ Hydrocodone Bitart (Lortab 7.5/325) 1 tab PRN Q6HRS PRN PO PAIN Last administered on 07/27/17 07:40; Start 07/25/17 at 19:45 Metformin HCl (Glucophage) 1,000 mg DAILY08 PO Last administered on 07/30/17 08:18; Start 07/26/17 at 08:00 Metformin HCl (Glucophage) 500 mg DAILYBFRSUP PO Last administered on 18:39; Start 07/26/17 at 17:00 Methocarbamol (Robaxin) 750 mg TID PO Last administered on 07/26/17 08:38; Start 07/25/17 at 21:00; Stop 07/26/17 at 18:44; Status DC Potassium Chloride (Klor-Con) 10 meq DAILYWBKFT PO Last administered on 08:33; Start 07/26/17 at 08:00; Stop 07/26/17 at 08:55; Status DC Tamsulosin HCl (Flomax) 0.4 mg DAILY PO Last administered on 07/30/17 08:18; Start 07/26/17 at 09:00 Diclofenac Sodium (Voltaren) 75 mg BID PO Last administered on 07/28/17 09:04 ; Start 07/25/17 at 21:00; Stop 07/28/17 at 19:45; Status DC Fish Oil (Fish Oil) 1,000 mg BID PO Last administered on 07/30/17 08:18; Start 07/25/17 at 21:00 Fluticasone Propionate (Flonase) 2 spray DAILY NS Last administered on 08:16; Start 07/26/17 at 09:00 Glimepiride (Amaryl) 0.5 mg DAILY PO Last administered on 07/30/17 08:18; Start 07/26/17 at 09:00 Non-Formulary Medication 1 each BID PO ; Start 07/25/17 at 21:00; Status UNV Losartan Potassium (Cozaar) 100 mg DAILY PO Last administered on 07/30/17 08: 20; Start 07/26/17 at 09:00 Atorvastatin Calcium (Lipitor) 5 mg QHS PO Last administered on 07/29/17 20:01 ; Start 07/25/17 at 21:00 Metoprolol Tartrate (Lopressor) 50 mg BID PO Last administered on 07/30/17 08: 19; Start 07/25/17 at 21:00 Multivitamins (Thera M Plus) 1 tab DAILY PO Last administered on 07/30/17 08: 17; Start 07/26/17 at 09:00 Nifedipine (Procardia Xl) 90 mg DAILY PO Last administered on 07/30/17 08:17; Start 07/26/17 at 09:00 Sodium Chloride 1,000 ml @ 1,000 mls/hr 1X ONCE IV Last administered on 21:56; Start 07/25/17 at 19:45; Stop 07/25/17 at 20:44; Status DC Potassium Chloride (Klor-Con) 40 meq 1X ONCE PO Last administered on 21:41; Start 07/25/17 at 19:45; Stop 07/25/17 at 19:48; Status DC Sodium Chloride 1,000 ml @ 100 mls/hr 1X ONCE IV Last administered on 21:53; Start 07/25/17 at 19:45; Stop 07/26/17 at 05:44; Status DC Insulin Aspart (NovoLOG) 0-7 UNITS TIDWMEALS SQ Last administered on 07/27/17 16:58; Start 07/26/17 at 08:00 Dextrose (Dextrose 50%-Water Syringe) 12.5 gm PRN Q15MIN PRN IV SEE COMMENTS; Start 07/25/17 at 20:00 Info (Do NOT chart on this placeholder) 0.5 each 1X ONCE MC ; Start 07/26/17 at 09:00; Stop 07/26/17 at 09:01; Status UNV Influenza Virus Vaccine Quadrival (Fluarix Quad [id number] Syringe) 0.5 ml ONCE ONCE VAX IM Last administered on 07/28/17 09:31; Start 07/26/17 at 09:00; Stop 07/26/17 at 09:01; Status DC Albuterol/ Ipratropium (Duoneb) 3 ml RTQID NEB Last administered on 07/29/17 19:40; Start 07/26/17 at 08:00 Albuterol Sulfate (Ventolin Neb Soln) 2.5 mg PRN Q2HRS PRN NEB SHORTNESS OF BREATH Last administered on 07/26/17 02:00; Start 07/26/17 at 01:30 Enoxaparin Sodium (Lovenox 100mg Syringe) 100 mg 1X ONCE SQ Last administered on 07/26/17 02:08; Start 07/26/17 at 02:00; Stop 07/26/17 at 02:04; Status DC Heparin Sodium/ Dextrose 500 ml @ 0 mls/hr CONT PRN IV SEE I/O RECORD Last administered on 07/26/17 03:42; Start 07/26/17 at 03:30; Stop 07/28/17 at 08:16 ; Status DC Heparin Sodium (Porcine) (Heparin Sodium) 2,450 unit PRN Q6HRS PRN IV FOR UFH LEVEL LESS THAN 0.2; Start 07/26/17 at 03:30; Stop 07/28/17 at 08:16; Status DC Info (Anti-Coagulation Monitoring By Pharmacy) 1 each PRN DAILY PRN MC SEE COMMENTS Last administered on 07/27/17 10:04; Start 07/26/17 at 03:30; Stop at 08:16; Status DC Vancomycin HCl (Vanco Per Pharmacy) 1 each PRN DAILY PRN MC SEE COMMENTS Last administered on 07/28/17 00:18; Start 07/26/17 at 08:15; Stop 07/28/17 at 12:53 ; Status DC Meropenem 1 gm/ Sodium Chloride 100 ml @ 200 mls/hr Q8HRS IV Last administered on 07/29/17 05:54; Start 07/26/17 at 08:30; Stop 07/29/17 at 08:23 ; Status DC Vancomycin HCl 2 gm/Sodium Chloride 500 ml @ 250 mls/hr 1X ONCE IV Last administered on 07/26/17 09:27; Start 07/26/17 at 08:30; Stop 07/26/17 at 10:29 ; Status DC Potassium Chloride (Klor-Con) 40 meq DAILYWBKFT PO Last administered on 08:18; Start 07/26/17 at 09:30 Vancomycin HCl 1.25 gm/Sodium Chloride 250 ml @ 167 mls/hr Q12H IV Last administered on 07/27/17 21:37; Start 07/26/17 at 22:00; Stop 07/28/17 at 01:00 ; Status DC Vancomycin HCl 1 each 1X ONCE MC Last administered on 07/27/17 21:30; Start 07/27/17 at 21:30; Stop 07/27/17 at 21:31; Status DC Furosemide (Lasix) 40 mg 1X ONCE IVP Last administered on 07/26/17 11:47; Start 07/26/17 at 11:30; Stop 07/26/17 at 11:31; Status DC Gadobutrol (Gadavist) 10 mmol 1X ONCE IV Last administered on 07/26/17 16:19 ; Start 07/26/17 at 16:15; Stop 07/26/17 at 16:16; Status DC Morphine Sulfate 3 mg PRN Q3HRS PRN IV PAIN Last administered on 07/29/17 01: 45; Start 07/27/17 at 08:30 Morphine Sulfate 4 mg PRN Q3HRS PRN IV PAIN; Start 07/27/17 at 08:30 Morphine Sulfate 5 mg PRN Q3HRS PRN IV PAIN; Start 07/27/17 at 08:45 Gadobutrol (Gadavist) 9 mmol 1X ONCE IV Last administered on 07/27/17 10:37; Start 07/27/17 at 10:15; Stop 07/27/17 at 10:16; Status DC Furosemide (Lasix) 40 mg 1X ONCE IVP Last administered on 07/27/17 14:12; Start 07/27/17 at 14:00; Stop 07/27/17 at 14:01; Status DC Vancomycin HCl 1.5 gm/Sodium Chloride 500 ml @ 250 mls/hr Q24H IV ; Start 07/28 at 22:00; Stop 07/28/17 at 22:00; Status DC Vancomycin HCl 1 each 1X ONCE MC ; Start 07/30/17 at 21:30; Stop 07/30/17 at 21 :30; Status DC Acetaminophen (Tylenol) 650 mg PRN Q6HRS PRN PO FEVER > 100.5'F Last administered on 07/29/17 20:02; Start 07/28/17 at 05:30 Tamsulosin HCl (Flomax) 0.4 mg QHS PO ; Start 07/28/17 at 21:00; Status UNV Cefazolin Sodium/ Dextrose 50 ml @ 100 mls/hr Q8HRS IV Last administered on 05:49; Start 07/29/17 at 08:30 Polyethylene Glycol (miraLAX PACKET) 17 gm DAILY PO Last administered on 08:16; Start 07/29/17 at 09:00 Lorazepam (Ativan) 1 mg PRN Q4HRS PRN IV ANXIETY / AGITATION; Start 07/29/17 at 12:15 Furosemide (Lasix) 40 mg 1X ONCE IVP Last administered on 07/29/17 20:03; Start 07/29/17 at 19:45; Stop 07/29/17 at 19:46; Status DC Potassium Chloride (Klor-Con) 40 meq 1X ONCE PO ; Start 07/30/17 at 09:00; Stop 07/30/17 at 09:01; Status DC Active Scripts Active Colace (Docusate Sodium) 100 Mg Capsule 100 Mg PO BID 60 Days Methocarbamol 750 Mg Tablet 750 Mg PO TID 60 Days Hydrocodone-Apap 7.5-325 (Hydrocodone Bit/Acetaminophen) 1 Each Tablet 1 Tab PO PRN Q6HRS PRN 60 Days Reported Tamsulosin Hcl 0.4 Mg Cap.er.24h 0.4 Mg PO DAILY Metformin Hcl 500 Mg Tablet 500 Mg PO DAILYBFRSUP Gabapentin 100 Mg Capsule 100 Mg PO TID Lovastatin 20 Mg Tablet 1 Tab PO DAILY [id number] Tab (Gluc/Jonah-Msm#2/C/D3/Vidal/Born) 1 Each Tablet 1 Each PO BID Glimepiride 1 Mg Tablet 0.5 Tab PO DAILY Losartan Potassium 100 Mg Tablet 100 Mg PO DAILY Diclofenac Sodium 75 Mg Tablet.dr 75 Mg PO BID Nitrostat (Nitroglycerin) 0.4 Mg Tab.subl 0.4 Mg SL PRN Viagra (Sildenafil Citrate) 100 Mg Tablet 100 Mg PO PRN Potassium Chloride 10 Meq Tablet.er 10 Meq PO DAILY Metformin Hcl 1,000 Mg Tablet 1,000 Mg PO DAILY08 Hydrochlorothiazide Tablet (Hydrochlorothiazide) 25 Mg Tablet 25 Mg PO DAILY Metoprolol Tartrate 100 Mg Tablet 50 Mg PO BID Flovent 50MCG Diskus (Fluticasone Propionate) 50 Mcg Disk.w.dev 50 Mcg IH DAILY Citalopram Hbr (Citalopram Hydrobromide) 20 Mg Tablet 20 Mg PO BID Nifedipine Er (Nifedipine) 90 Mg Tab.er.24 90 Mg PO DAILY Multivitamins (Multivitamin) 1 Each Tablet 1 Each PO DAILY Fish Oil 1,200 Mg Fish Oil (Fish Oil/Dha/Epa) 1 Each Capsule 1 Each PO BID Vitals/I & O Vital Sign - Last 24 Hours 07/29/17 07/29/17 07/29/17 07/29/17 10:27 10:29 10:29 11:00 Temp 98.1 98.1 Pulse 85 85 85 92 Resp 18 B/P (MAP) 145/72 145/72 145/72 153/77 (102) Pulse Ox 95 O2 Delivery Nasal Cannula O2 Flow Rate 4.0 07/29/17 07/29/17 07/29/17 07/29/17 13:46 15:14 17:18 19:15 Temp 99.4 99.4 Pulse 86 Resp 18 B/P (MAP) 141/74 (96) Pulse Ox 98 98 95 99 O2 Delivery BiPAP/CPAP BiPAP/CPAP BiPAP/CPAP BiPAP/CPAP 07/29/17 07/29/17 07/29/17 07/29/17 19:36 19:40 20:00 20:03 Temp 99.2 99.2 Pulse 86 B/P (MAP) 141/74 Pulse Ox 98 O2 Delivery BiPAP/CPAP Bi-pap O2 Flow Rate 4.0 07/29/17 07/29/17 07/29/17 07/30/17 22:09 22:16 23:25 01:06 Temp 99.1 99.1 Pulse 76 Resp 18 B/P (MAP) 138/70 (92) Pulse Ox 99 99 99 99 O2 Delivery BiPAP/CPAP BiPAP/CPAP BiPAP/CPAP BiPAP/CPAP 07/30/17 07/30/17 07/30/17 07/30/17 02:30 03:40 05:45 07:00 Temp 98.7 99.0 98.7 99.0 Pulse 69 87 Resp 16 20 B/P (MAP) 124/66 (85) 146/77 (100) Pulse Ox 98 98 97 90 O2 Delivery BiPAP/CPAP BiPAP/CPAP BiPAP/CPAP Nasal Cannula O2 Flow Rate 2.0 07/30/17 07/30/17 07/30/17 08:17 08:19 08:20 Pulse 87 87 87 B/P (MAP) 146/77 146/77 146/77 Intake and Output 07/30/17 07/30/17 07/31/17 15:00 23:00 07:00 Intake Total 650 ml Output Total 550 ml Balance 100 ml STEPHANIA BARKSDALE MD Jul 30, 2017 10:21
[2017-07-30 10:58] VITALS: BP 140/79
--- NOTE | 2017-07-30 11:03 | PDOC ---
PROGRESS NOTES Chief Complaint Chief Complaint Assessment/Plan 1. BAck pain, recent back sx/Sepsis, complicated back sx bec of sepsis, FEVERS, SIRS POA, likely infectious no organ dysfcn yet 1. TRansient amnesia, Oddities in behavior, forgetfullness - could be beginning dementia? 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 CT head neg, Check MRI for any acute pathology, Add esr. get neuro. 2. HTN, DM2, dyslipidemia - depression NOS - all chronic stable 3. Polypharmacy - on 22 home meds 4. Geriatric, fall risk 5. FEVERS, LEUKOCYTOSIS, SIRS < POA 6. Hip pain, shoulder pain, back pain 7. Recent multiple non injury falls 8. NSTEMI 9. HYpoxic respi failure with neg dopplers and low prob VQ History of Present Illness History of Present Illness Patient laying in bed complaining of lower back pain. and nurse (for 1:1 observation) present in room. Patient alert and cooperative. Patient denied urge to have BM and said she was not yet worried that he hasn't had a BM ( but will be if he doesn't have one by tomorrow). says patient has never been as confused as he is now. Explained to that confusion often clears when patients leave hospital. said SW spoke with her yesterday and they were returning today to discuss SNU eval. Vitals Vitals Vital Signs Date Time Temp Pulse Resp B/P (MAP) Pulse Ox O2 Delivery O2 Flow Rate FiO2 07/30/17 08:20 87 146/77 07/30/17 07:00 99.0 20 90 Nasal Cannula 2.0 99.0 Physical Exam Physical Exam Patient had no SOA but was somnolent during exam. Abdomen distended all 4 quadrants but nontender. Palpable distension in LLQ just lateral to umbilicus and on left flank. General: Alert, Oriented X3, Cooperative, No acute distress, Other Heart: Regular rate, Normal S1, Normal S2 Lungs: Clear Abdomen: Normal bowel sounds, Soft, Other (Mass (probable bowel distention) LLQ lateral to umbilicus and on flank. ) Extremities: No clubbing, No cyanosis, No edema Skin: No rashes, No breakdown, No significant lesion Labs LABS Laboratory Tests Test 07/29/17 19:25 10/3/17 22:28 07/30/17 04:25 07/30/17 07:35 O2 Saturation 98 % (92-99) Arterial Blood pH 7.50 (7.35-7.45) Arterial Blood pCO2 at Patient Temp 33 mmHg (35-46) Arterial Blood pO2 at Patient Temp 129 mmHg (65-108) Arterial Blood HCO3 25 mmol/L (21-28) Arterial Blood Base Excess 2 mmol/L (-3-3) FiO2 60.0 Glucose (Fingerstick) 128 mg/dL (70-99) 113 mg/dL (70-99) White Blood Count 11.8 x10^3/uL (4.0-11.0) Red Blood Count 3.68 x10^6/uL (4.30-5.70) Hemoglobin 10.3 g/dL (13.0-17.5) Hematocrit 29.7 % (39.0-53.0) Mean Corpuscular Volume 81 fL (79-100) Mean Corpuscular Hemoglobin 28 pg (25-35) Mean Corpuscular Hemoglobin Concent 35 g/dL (31-37) Red Cell Distribution Width 14.2 % (11.5-14.5) Platelet Count 258 x10^3/uL (140-400) Neutrophils (%) (Auto) 79 % (31-73) Lymphocytes (%) (Auto) 7 % (24-48) Monocytes (%) (Auto) 11 % (0-9) Eosinophils (%) (Auto) 3 % (0-3) Basophils (%) (Auto) 1 % (0-3) Neutrophils # (Auto) 9.4 x10^3uL (1.8-7.7) Lymphocytes # (Auto) 0.8 x10^3/uL (1.0-4.8) Monocytes # (Auto) 1.3 x10^3/uL (0.0-1.1) Eosinophils # (Auto) 0.3 x10^3/uL (0.0-0.7) Basophils # (Auto) 0.1 x10^3/uL (0.0-0.2) Sodium Level 134 mmol/L (136-145) Potassium Level 3.1 mmol/L (3.5-5.1) Chloride Level 96 mmol/L (98-107) Carbon Dioxide Level 31 mmol/L (21-32) Anion Gap 7 (6-14) Blood Urea Nitrogen 26 mg/dL (8-26) Creatinine 1.1 mg/dL (0.7-1.3) Estimated GFR (Cockcroft-Gault) 66.2 Glucose Level 110 mg/dL (70-99) Calcium Level 8.3 mg/dL (8.5-10.1) Review of Systems Review of Systems Patient complains of pain. Patient tired. Assessment and Plan Assessmemt and Plan Assessment/Plan 1. BAck pain, recent back sx/Sepsis, complicated back sx bec of sepsis, FEVERS, SIRS POA, likely infectious no organ dysfcn yet 1. TRansient amnesia, Oddities in behavior, forgetfullness - could be beginning dementia? 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 CT head neg, Check MRI for any acute pathology, Add esr. get neuro. 2. HTN, DM2, dyslipidemia - depression NOS - all chronic stable 3. Polypharmacy - on 22 home meds 4. Geriatric, fall risk 5. FEVERS, LEUKOCYTOSIS, SIRS < POA 6. Hip pain, shoulder pain, back pain 7. Recent multiple non injury falls 8. NSTEMI 9. HYpoxic respi failure with neg dopplers and low prob VQ Plan: 1. Give Mg citrate to encourage BM 2. Ordered K+ 3. Await cardio decision on cath 4. Await ID plan for bacteremia 5. Continue pain medications for back. 6. Stop 1:1 observation. Problems: Comment Review of Relevant I have reviewed the following items ykler (where applicable) has been applied. Labs Laboratory Tests Test 07/28/17 12:43 07/28/17 17:03 07/28/17 20:32 07/29/17 04:25 Glucose (Fingerstick) 87 mg/dL (70-99) 150 mg/dL (70-99) 144 mg/dL (70-99) White Blood Count 14.2 x10^3/uL (4.0-11.0) Red Blood Count 3.78 x10^6/uL (4.30-5.70) Hemoglobin 10.8 g/dL (13.0-17.5) Hematocrit 30.9 % (39.0-53.0) Mean Corpuscular Volume 82 fL (79-100) Mean Corpuscular Hemoglobin 29 pg (25-35) Mean Corpuscular Hemoglobin Concent 35 g/dL (31-37) Red Cell Distribution Width 14.2 % (11.5-14.5) Platelet Count 233 x10^3/uL (140-400) Neutrophils (%) (Auto) 88 % (31-73) Lymphocytes (%) (Auto) 4 % (24-48) Monocytes (%) (Auto) 8 % (0-9) Eosinophils (%) (Auto) 1 % (0-3) Basophils (%) (Auto) 0 % (0-3) Neutrophils # (Auto) 12.4 x10^3uL (1.8-7.7) Lymphocytes # (Auto) 0.5 x10^3/uL (1.0-4.8) Monocytes # (Auto) 1.2 x10^3/uL (0.0-1.1) Eosinophils # (Auto) 0.1 x10^3/uL (0.0-0.7) Basophils # (Auto) 0.0 x10^3/uL (0.0-0.2) Sodium Level 132 mmol/L (136-145) Potassium Level 3.5 mmol/L (3.5-5.1) Chloride Level 95 mmol/L (98-107) Carbon Dioxide Level 26 mmol/L (21-32) Anion Gap 11 (6-14) Blood Urea Nitrogen 30 mg/dL (8-26) Creatinine 1.3 mg/dL (0.7-1.3) Estimated GFR (Cockcroft-Gault) 54.6 Glucose Level 154 mg/dL (70-99) Calcium Level 8.4 mg/dL (8.5-10.1) Test 07/29/17 07:11 07/29/17 19:25 07/29/17 22:28 07/30/17 04:25 Glucose (Fingerstick) 138 mg/dL (70-99) 128 mg/dL (70-99) O2 Saturation 98 % (92-99) Arterial Blood pH 7.50 (7.35-7.45) Arterial Blood pCO2 at Patient Temp 33 mmHg (35-46) Arterial Blood pO2 at Patient Temp 129 mmHg (65-108) Arterial Blood HCO3 25 mmol/L (21-28) Arterial Blood Base Excess 2 mmol/L (-3-3) FiO2 60.0 White Blood Count 11.8 x10^3/uL (4.0-11.0) Red Blood Count 3.68 x10^6/uL (4.30-5.70) Hemoglobin 10.3 g/dL (13.0-17.5) Hematocrit 29.7 % (39.0-53.0) Mean Corpuscular Volume 81 fL (79-100) Mean Corpuscular Hemoglobin 28 pg (25-35) Mean Corpuscular Hemoglobin Concent 35 g/dL (31-37) Red Cell Distribution Width 14.2 % (11.5-14.5) Platelet Count 258 x10^3/uL (140-400) Neutrophils (%) (Auto) 79 % (31-73) Lymphocytes (%) (Auto) 7 % (24-48) Monocytes (%) (Auto) 11 % (0-9) Eosinophils (%) (Auto) 3 % (0-3) Basophils (%) (Auto) 1 % (0-3) Neutrophils # (Auto) 9.4 x10^3uL (1.8-7.7) Lymphocytes # (Auto) 0.8 x10^3/uL (1.0-4.8) Monocytes # (Auto) 1.3 x10^3/uL (0.0-1.1) Eosinophils # (Auto) 0.3 x10^3/uL (0.0-0.7) Basophils # (Auto) 0.1 x10^3/uL (0.0-0.2) Sodium Level 134 mmol/L (136-145) Potassium Level 3.1 mmol/L (3.5-5.1) Chloride Level 96 mmol/L (98-107) Carbon Dioxide Level 31 mmol/L (21-32) Anion Gap 7 (6-14) Blood Urea Nitrogen 26 mg/dL (8-26) Creatinine 1.1 mg/dL (0.7-1.3) Estimated GFR (Cockcroft-Gault) 66.2 Glucose Level 110 mg/dL (70-99) Calcium Level 8.3 mg/dL (8.5-10.1) Test 07/30/17 07:35 Glucose (Fingerstick) 113 mg/dL (70-99) Laboratory Tests Test 07/29/17 19:25 07/29/17 22:28 07/30/17 04:25 07/30/17 07:35 O2 Saturation 98 % (92-99) Arterial Blood pH 7.50 (7.35-7.45) Arterial Blood pCO2 at Patient Temp 33 mmHg (35-46) Arterial Blood pO2 at Patient Temp 129 mmHg (65-108) Arterial Blood HCO3 25 mmol/L (21-28) Arterial Blood Base Excess 2 mmol/L (-3-3) FiO2 60.0 Glucose (Fingerstick) 128 mg/dL (70-99) 113 mg/dL (70-99) White Blood Count 11.8 x10^3/uL (4.0-11.0) Red Blood Count 3.68 x10^6/uL (4.30-5.70) Hemoglobin 10.3 g/dL (13.0-17.5) Hematocrit 29.7 % (39.0-53.0) Mean Corpuscular Volume 81 fL (79-100) Mean Corpuscular Hemoglobin 28 pg (25-35) Mean Corpuscular Hemoglobin Concent 35 g/dL (31-37) Red Cell Distribution Width 14.2 % (11.5-14.5) Platelet Count 258 x10^3/uL (140-400) Neutrophils (%) (Auto) 79 % (31-73) Lymphocytes (%) (Auto) 7 % (24-48) Monocytes (%) (Auto) 11 % (0-9) Eosinophils (%) (Auto) 3 % (0-3) Basophils (%) (Auto) 1 % (0-3) Neutrophils # (Auto) 9.4 x10^3uL (1.8-7.7) Lymphocytes # (Auto) 0.8 x10^3/uL (1.0-4.8) Monocytes # (Auto) 1.3 x10^3/uL (0.0-1.1) Eosinophils # (Auto) 0.3 x10^3/uL (0.0-0.7) Basophils # (Auto) 0.1 x10^3/uL (0.0-0.2) Sodium Level 134 mmol/L (136-145) Potassium Level 3.1 mmol/L (3.5-5.1) Chloride Level 96 mmol/L (98-107) Carbon Dioxide Level 31 mmol/L (21-32) Anion Gap 7 (6-14) Blood Urea Nitrogen 26 mg/dL (8-26) Creatinine 1.1 mg/dL (0.7-1.3) Estimated GFR (Cockcroft-Gault) 66.2 Glucose Level 110 mg/dL (70-99) Calcium Level 8.3 mg/dL (8.5-10.1) Microbiology 07/28/17 Blood Culture - Preliminary, Resulted NO GROWTH AFTER 2 DAYS Medications Current Medications Citalopram Hydrobromide (CeleXA) 20 mg BID PO Last administered on 07/30/17 08 :19; Start 07/25/17 at 21:00 Docusate Sodium (Colace) 100 mg BID PO Last administered on 07/30/17 08:19; Start 07/25/17 at 21:00 Gabapentin (Neurontin) 100 mg TID PO Last administered on 07/30/17 08:17; Start 07/25/17 at 21:00 Hydrochlorothiazide (Hydrodiuril) 25 mg DAILY PO Last administered on 08:30; Start 07/26/17 at 09:00; Stop 07/27/17 at 14:23; Status DC Acetaminophen/ Hydrocodone Bitart (Lortab 7.5/325) 1 tab PRN Q6HRS PRN PO PAIN Last administered on 07/27/17 07:40; Start 07/25/17 at 19:45 Metformin HCl (Glucophage) 1,000 mg DAILY08 PO Last administered on 07/30/17 08:18; Start 07/26/17 at 08:00 Metformin HCl (Glucophage) 500 mg DAILYBFRSUP PO Last administered on 18:39; Start 07/26/17 at 17:00 Methocarbamol (Robaxin) 750 mg TID PO Last administered on 07/26/17 08:38; Start 07/25/17 at 21:00; Stop 07/26/17 at 18:44; Status DC Potassium Chloride (Klor-Con) 10 meq DAILYWBKFT PO Last administered on 08:33; Start 07/26/17 at 08:00; Stop 07/26/17 at 08:55; Status DC Tamsulosin HCl (Flomax) 0.4 mg DAILY PO Last administered on 07/30/17 08:18; Start 07/26/17 at 09:00 Diclofenac Sodium (Voltaren) 75 mg BID PO Last administered on 07/28/17 09:04 ; Start 07/25/17 at 21:00; Stop 07/28/17 at 19:45; Status DC Fish Oil (Fish Oil) 1,000 mg BID PO Last administered on 07/30/17 08:18; Start 07/25/17 at 21:00 Fluticasone Propionate (Flonase) 2 spray DAILY NS Last administered on 08:16; Start 07/26/17 at 09:00 Glimepiride (Amaryl) 0.5 mg DAILY PO Last administered on 07/30/17 08:18; Start 07/26/17 at 09:00 Non-Formulary Medication 1 each BID PO ; Start 07/25/17 at 21:00; Status UNV Losartan Potassium (Cozaar) 100 mg DAILY PO Last administered on 07/30/17 08: 20; Start 07/26/17 at 09:00 Atorvastatin Calcium (Lipitor) 5 mg QHS PO Last administered on 07/29/17 20:01 ; Start 07/25/17 at 21:00 Metoprolol Tartrate (Lopressor) 50 mg BID PO Last administered on 07/30/17 08: 19; Start 07/25/17 at 21:00 Multivitamins (Thera M Plus) 1 tab DAILY PO Last administered on 07/30/17 08: 17; Start 07/26/17 at 09:00 Nifedipine (Procardia Xl) 90 mg DAILY PO Last administered on 07/30/17 08:17; Start 07/26/17 at 09:00 Sodium Chloride 1,000 ml @ 1,000 mls/hr 1X ONCE IV Last administered on 21:56; Start 07/25/17 at 19:45; Stop 07/25/17 at 20:44; Status DC Potassium Chloride (Klor-Con) 40 meq 1X ONCE PO Last administered on 21:41; Start 07/25/17 at 19:45; Stop 07/25/17 at 19:48; Status DC Sodium Chloride 1,000 ml @ 100 mls/hr 1X ONCE IV Last administered on 21:53; Start 07/25/17 at 19:45; Stop 07/26/17 at 05:44; Status DC Insulin Aspart (NovoLOG) 0-7 UNITS TIDWMEALS SQ Last administered on 07/27/17 16:58; Start 07/26/17 at 08:00 Dextrose (Dextrose 50%-Water Syringe) 12.5 gm PRN Q15MIN PRN IV SEE COMMENTS; Start 07/25/17 at 20:00 Info (Do NOT chart on this placeholder) 0.5 each 1X ONCE MC ; Start 07/26/17 at 09:00; Stop 07/26/17 at 09:01; Status UNV Influenza Virus Vaccine Quadrival (Fluarix Quad [id number] Syringe) 0.5 ml ONCE ONCE VAX IM Last administered on 07/28/17 09:31; Start 07/26/17 at 09:00; Stop 07/26/17 at 09:01; Status DC Albuterol/ Ipratropium (Duoneb) 3 ml RTQID NEB Last administered on 07/29/17 19:40; Start 07/26/17 at 08:00 Albuterol Sulfate (Ventolin Neb Soln) 2.5 mg PRN Q2HRS PRN NEB SHORTNESS OF BREATH Last administered on 07/26/17 02:00; Start 07/26/17 at 01:30 Enoxaparin Sodium (Lovenox 100mg Syringe) 100 mg 1X ONCE SQ Last administered on 07/26/17 02:08; Start 07/26/17 at 02:00; Stop 07/26/17 at 02:04; Status DC Heparin Sodium/ Dextrose 500 ml @ 0 mls/hr CONT PRN IV SEE I/O RECORD Last administered on 07/26/17 03:42; Start 07/26/17 at 03:30; Stop 07/28/17 at 08:16 ; Status DC Heparin Sodium (Porcine) (Heparin Sodium) 2,450 unit PRN Q6HRS PRN IV FOR UFH LEVEL LESS THAN 0.2; Start 07/26/17 at 03:30; Stop 07/28/17 at 08:16; Status DC Info (Anti-Coagulation Monitoring By Pharmacy) 1 each PRN DAILY PRN MC SEE COMMENTS Last administered on 07/27/17 10:04; Start 07/26/17 at 03:30; Stop at 08:16; Status DC Vancomycin HCl (Vanco Per Pharmacy) 1 each PRN DAILY PRN MC SEE COMMENTS Last administered on 07/28/17 00:18; Start 07/26/17 at 08:15; Stop 07/28/17 at 12:53 ; Status DC Meropenem 1 gm/ Sodium Chloride 100 ml @ 200 mls/hr Q8HRS IV Last administered on 07/29/17 05:54; Start 07/26/17 at 08:30; Stop 07/29/17 at 08:23 ; Status DC Vancomycin HCl 2 gm/Sodium Chloride 500 ml @ 250 mls/hr 1X ONCE IV Last administered on 07/26/17 09:27; Start 07/26/17 at 08:30; Stop 07/26/17 at 10:29 ; Status DC Potassium Chloride (Klor-Con) 40 meq DAILYWBKFT PO Last administered on 08:18; Start 07/26/17 at 09:30 Vancomycin HCl 1.25 gm/Sodium Chloride 250 ml @ 167 mls/hr Q12H IV Last administered on 07/27/17 21:37; Start 07/26/17 at 22:00; Stop 07/28/17 at 01:00 ; Status DC Vancomycin HCl 1 each 1X ONCE MC Last administered on 07/27/17 21:30; Start 07/27/17 at 21:30; Stop 07/27/17 at 21:31; Status DC Furosemide (Lasix) 40 mg 1X ONCE IVP Last administered on 07/26/17 11:47; Start 07/26/17 at 11:30; Stop 07/26/17 at 11:31; Status DC Gadobutrol (Gadavist) 10 mmol 1X ONCE IV Last administered on 07/26/17 16:19 ; Start 07/26/17 at 16:15; Stop 07/26/17 at 16:16; Status DC Morphine Sulfate 3 mg PRN Q3HRS PRN IV PAIN Last administered on 07/29/17 01: 45; Start 07/27/17 at 08:30 Morphine Sulfate 4 mg PRN Q3HRS PRN IV PAIN; Start 07/27/17 at 08:30 Morphine Sulfate 5 mg PRN Q3HRS PRN IV PAIN; Start 07/27/17 at 08:45 Gadobutrol (Gadavist) 9 mmol 1X ONCE IV Last administered on 07/27/17 10:37; Start 07/27/17 at 10:15; Stop 07/27/17 at 10:16; Status DC Furosemide (Lasix) 40 mg 1X ONCE IVP Last administered on 07/27/17 14:12; Start 07/27/17 at 14:00; Stop 07/27/17 at 14:01; Status DC Vancomycin HCl 1.5 gm/Sodium Chloride 500 ml @ 250 mls/hr Q24H IV ; Start 07/28 at 22:00; Stop 07/28/17 at 22:00; Status DC Vancomycin HCl 1 each 1X ONCE MC ; Start 07/30/17 at 21:30; Stop 07/30/17 at 21 :30; Status DC Acetaminophen (Tylenol) 650 mg PRN Q6HRS PRN PO FEVER > 100.5'F Last administered on 07/29/17 20:02; Start 07/28/17 at 05:30 Tamsulosin HCl (Flomax) 0.4 mg QHS PO ; Start 07/28/17 at 21:00; Status UNV Cefazolin Sodium/ Dextrose 50 ml @ 100 mls/hr Q8HRS IV Last administered on 05:49; Start 07/29/17 at 08:30 Polyethylene Glycol (miraLAX PACKET) 17 gm DAILY PO Last administered on 08:16; Start 07/29/17 at 09:00 Lorazepam (Ativan) 1 mg PRN Q4HRS PRN IV ANXIETY / AGITATION; Start 07/29/17 at 12:15 Furosemide (Lasix) 40 mg 1X ONCE IVP Last administered on 07/29/17 20:03; Start 07/29/17 at 19:45; Stop 07/29/17 at 19:46; Status DC Potassium Chloride (Klor-Con) 40 meq 1X ONCE PO ; Start 07/30/17 at 09:00; Stop 07/30/17 at 09:01; Status DC Active Scripts Active Colace (Docusate Sodium) 100 Mg Capsule 100 Mg PO BID 60 Days Methocarbamol 750 Mg Tablet 750 Mg PO TID 60 Days Hydrocodone-Apap 7.5-325 (Hydrocodone Bit/Acetaminophen) 1 Each Tablet 1 Tab PO PRN Q6HRS PRN 60 Days Reported Tamsulosin Hcl 0.4 Mg Cap.er.24h 0.4 Mg PO DAILY Metformin Hcl 500 Mg Tablet 500 Mg PO DAILYBFRSUP Gabapentin 100 Mg Capsule 100 Mg PO TID Lovastatin 20 Mg Tablet 1 Tab PO DAILY Pifhofduqn-Byzpjeubqmx-Ovy Tab (Gluc/Jonah-Msm#2/C/D3/Vidal/Born) 1 Each Tablet 1 Each PO BID Glimepiride 1 Mg Tablet 0.5 Tab PO DAILY Losartan Potassium 100 Mg Tablet 100 Mg PO DAILY Diclofenac Sodium 75 Mg Tablet.dr 75 Mg PO BID Nitrostat (Nitroglycerin) 0.4 Mg Tab.subl 0.4 Mg SL PRN Viagra (Sildenafil Citrate) 100 Mg Tablet 100 Mg PO PRN Potassium Chloride 10 Meq Tablet.er 10 Meq PO DAILY Metformin Hcl 1,000 Mg Tablet 1,000 Mg PO DAILY08 Hydrochlorothiazide Tablet (Hydrochlorothiazide) 25 Mg Tablet 25 Mg PO DAILY Metoprolol Tartrate 100 Mg Tablet 50 Mg PO BID Flovent 50MCG Diskus (Fluticasone Propionate) 50 Mcg Disk.w.dev 50 Mcg IH DAILY Citalopram Hbr (Citalopram Hydrobromide) 20 Mg Tablet 20 Mg PO BID Nifedipine Er (Nifedipine) 90 Mg Tab.er.24 90 Mg PO DAILY Multivitamins (Multivitamin) 1 Each Tablet 1 Each PO DAILY Fish Oil 1,200 Mg Fish Oil (Fish Oil/Dha/Epa) 1 Each Capsule 1 Each PO BID Vitals/I & O Vital Sign - Last 24 Hours 07/29/17 07/29/17 07/29/17 07/29/17 11:00 13:46 15:14 17:18 Temp 98.1 98.1 Pulse 92 Resp 18 B/P (MAP) 153/77 (102) Pulse Ox 95 98 98 95 O2 Delivery Nasal Cannula BiPAP/CPAP BiPAP/CPAP BiPAP/CPAP O2 Flow Rate 4.0 07/29/17 07/29/17 07/29/17 07/29/17 19:15 19:36 19:40 20:00 Temp 99.4 99.2 99.4 99.2 Pulse 86 Resp 18 B/P (MAP) 141/74 (96) Pulse Ox 99 98 O2 Delivery BiPAP/CPAP BiPAP/CPAP Bi-pap O2 Flow Rate 4.0 07/29/17 07/29/17 07/29/17 07/29/17 20:03 22:09 22:16 23:25 Temp 99.1 99.1 Pulse 86 76 Resp 18 B/P (MAP) 141/74 138/70 (92) Pulse Ox 99 99 99 O2 Delivery BiPAP/CPAP BiPAP/CPAP BiPAP/CPAP 07/30/17 07/30/17 07/30/17 07/30/17 01:06 02:30 03:40 05:45 Temp 98.7 98.7 Pulse 69 Resp 16 B/P (MAP) 124/66 (85) Pulse Ox 99 98 98 97 O2 Delivery BiPAP/CPAP BiPAP/CPAP BiPAP/CPAP BiPAP/CPAP 07/30/17 07/30/17 07/30/17 07/30/17 07:00 08:17 08:19 08:20 Temp 99.0 99.0 Pulse 87 87 87 87 Resp 20 B/P (MAP) 146/77 (100) 146/77 146/77 146/77 Pulse Ox 90 O2 Delivery Nasal Cannula O2 Flow Rate 2.0 Intake and Output 07/30/17 07/30/17 07/31/17 15:00 23:00 07:00 Intake Total 650 ml Output Total 550 ml Balance 100 ml LISBETH OLIVA III DO Jul 30, 2017 11:03
--- NOTE | 2017-07-30 11:51 | PDOC ---
PULMONARY PROGRESS NOTES Subjective TODAY DECREASE SAT ON 3 LITRES CXR WITH CHF Vitals Vital Signs Date Time Temp Pulse Resp B/P (MAP) Pulse Ox O2 Delivery O2 Flow Rate FiO2 07/30/17 11:34 86 Nasal Cannula 2.0 07/30/17 10:58 100.6 77 20 140/79 (99) 100.6 General: Alert, No acute distress Lungs: Clear Cardiovascular: S1, S2 Abdomen: Soft Extremities: No Edema Skin: Warm Labs Laboratory Tests Test 07/28/17 12:43 07/28/17 17:03 07/28/17 20:32 07/29/17 04:25 Glucose (Fingerstick) 87 mg/dL (70-99) 150 mg/dL (70-99) 144 mg/dL (70-99) White Blood Count 14.2 x10^3/uL (4.0-11.0) Red Blood Count 3.78 x10^6/uL (4.30-5.70) Hemoglobin 10.8 g/dL (13.0-17.5) Hematocrit 30.9 % (39.0-53.0) Mean Corpuscular Volume 82 fL (79-100) Mean Corpuscular Hemoglobin 29 pg (25-35) Mean Corpuscular Hemoglobin Concent 35 g/dL (31-37) Red Cell Distribution Width 14.2 % (11.5-14.5) Platelet Count 233 x10^3/uL (140-400) Neutrophils (%) (Auto) 88 % (31-73) Lymphocytes (%) (Auto) 4 % (24-48) Monocytes (%) (Auto) 8 % (0-9) Eosinophils (%) (Auto) 1 % (0-3) Basophils (%) (Auto) 0 % (0-3) Neutrophils # (Auto) 12.4 x10^3uL (1.8-7.7) Lymphocytes # (Auto) 0.5 x10^3/uL (1.0-4.8) Monocytes # (Auto) 1.2 x10^3/uL (0.0-1.1) Eosinophils # (Auto) 0.1 x10^3/uL (0.0-0.7) Basophils # (Auto) 0.0 x10^3/uL (0.0-0.2) Sodium Level 132 mmol/L (136-145) Potassium Level 3.5 mmol/L (3.5-5.1) Chloride Level 95 mmol/L (98-107) Carbon Dioxide Level 26 mmol/L (21-32) Anion Gap 11 (6-14) Blood Urea Nitrogen 30 mg/dL (8-26) Creatinine 1.3 mg/dL (0.7-1.3) Estimated GFR (Cockcroft-Gault) 54.6 Glucose Level 154 mg/dL (70-99) Calcium Level 8.4 mg/dL (8.5-10.1) Test 07/29/17 07:11 07/29/17 19:25 07/29/17 22:28 07/30/17 04:25 Glucose (Fingerstick) 138 mg/dL (70-99) 128 mg/dL (70-99) O2 Saturation 98 % (92-99) Arterial Blood pH 7.50 (7.35-7.45) Arterial Blood pCO2 at Patient Temp 33 mmHg (35-46) Arterial Blood pO2 at Patient Temp 129 mmHg (65-108) Arterial Blood HCO3 25 mmol/L (21-28) Arterial Blood Base Excess 2 mmol/L (-3-3) FiO2 60.0 White Blood Count 11.8 x10^3/uL (4.0-11.0) Red Blood Count 3.68 x10^6/uL (4.30-5.70) Hemoglobin 10.3 g/dL (13.0-17.5) Hematocrit 29.7 % (39.0-53.0) Mean Corpuscular Volume 81 fL (79-100) Mean Corpuscular Hemoglobin 28 pg (25-35) Mean Corpuscular Hemoglobin Concent 35 g/dL (31-37) Red Cell Distribution Width 14.2 % (11.5-14.5) Platelet Count 258 x10^3/uL (140-400) Neutrophils (%) (Auto) 79 % (31-73) Lymphocytes (%) (Auto) 7 % (24-48) Monocytes (%) (Auto) 11 % (0-9) Eosinophils (%) (Auto) 3 % (0-3) Basophils (%) (Auto) 1 % (0-3) Neutrophils # (Auto) 9.4 x10^3uL (1.8-7.7) Lymphocytes # (Auto) 0.8 x10^3/uL (1.0-4.8) Monocytes # (Auto) 1.3 x10^3/uL (0.0-1.1) Eosinophils # (Auto) 0.3 x10^3/uL (0.0-0.7) Basophils # (Auto) 0.1 x10^3/uL (0.0-0.2) Sodium Level 134 mmol/L (136-145) Potassium Level 3.1 mmol/L (3.5-5.1) Chloride Level 96 mmol/L (98-107) Carbon Dioxide Level 31 mmol/L (21-32) Anion Gap 7 (6-14) Blood Urea Nitrogen 26 mg/dL (8-26) Creatinine 1.1 mg/dL (0.7-1.3) Estimated GFR (Cockcroft-Gault) 66.2 Glucose Level 110 mg/dL (70-99) Calcium Level 8.3 mg/dL (8.5-10.1) Test 07/30/17 07:35 Glucose (Fingerstick) 113 mg/dL (70-99) Laboratory Tests Test 07/29/17 19:25 07/29/17 22:28 07/30/17 04:25 07/30/17 07:35 O2 Saturation 98 % (92-99) Arterial Blood pH 7.50 (7.35-7.45) Arterial Blood pCO2 at Patient Temp 33 mmHg (35-46) Arterial Blood pO2 at Patient Temp 129 mmHg (65-108) Arterial Blood HCO3 25 mmol/L (21-28) Arterial Blood Base Excess 2 mmol/L (-3-3) FiO2 60.0 Glucose (Fingerstick) 128 mg/dL (70-99) 113 mg/dL (70-99) White Blood Count 11.8 x10^3/uL (4.0-11.0) Red Blood Count 3.68 x10^6/uL (4.30-5.70) Hemoglobin 10.3 g/dL (13.0-17.5) Hematocrit 29.7 % (39.0-53.0) Mean Corpuscular Volume 81 fL (79-100) Mean Corpuscular Hemoglobin 28 pg (25-35) Mean Corpuscular Hemoglobin Concent 35 g/dL (31-37) Red Cell Distribution Width 14.2 % (11.5-14.5) Platelet Count 258 x10^3/uL (140-400) Neutrophils (%) (Auto) 79 % (31-73) Lymphocytes (%) (Auto) 7 % (24-48) Monocytes (%) (Auto) 11 % (0-9) Eosinophils (%) (Auto) 3 % (0-3) Basophils (%) (Auto) 1 % (0-3) Neutrophils # (Auto) 9.4 x10^3uL (1.8-7.7) Lymphocytes # (Auto) 0.8 x10^3/uL (1.0-4.8) Monocytes # (Auto) 1.3 x10^3/uL (0.0-1.1) Eosinophils # (Auto) 0.3 x10^3/uL (0.0-0.7) Basophils # (Auto) 0.1 x10^3/uL (0.0-0.2) Sodium Level 134 mmol/L (136-145) Potassium Level 3.1 mmol/L (3.5-5.1) Chloride Level 96 mmol/L (98-107) Carbon Dioxide Level 31 mmol/L (21-32) Anion Gap 7 (6-14) Blood Urea Nitrogen 26 mg/dL (8-26) Creatinine 1.1 mg/dL (0.7-1.3) Estimated GFR (Cockcroft-Gault) 66.2 Glucose Level 110 mg/dL (70-99) Calcium Level 8.3 mg/dL (8.5-10.1) Medications Active Scripts Medications Dose Route/Sig Max Daily Dose Days Date Category Tamsulosin Hcl 0.4 Mg Cap.er.24h 0.4 Mg PO DAILY 03/31/17 Reported Metformin Hcl 500 Mg Tablet 500 Mg PO DAILYBFRSUP 03/31/17 Reported Colace (Docusate Sodium) 100 Mg Capsule 100 Mg PO BID 60 03/08/17 Rx Methocarbamol 750 Mg Tablet 750 Mg PO TID 60 03/08/17 Rx Hydrocodone-Apap 7.5-325 (Hydrocodone Bit/Acetaminophen) 1 Each Tablet 1 Tab PO PRN Q6HRS PRN 60 03/08/17 Rx Gabapentin 100 Mg Capsule 100 Mg PO TID 01/27/17 Reported Lovastatin 20 Mg Tablet 1 Tab PO DAILY 01/27/17 Reported Igoqpyqpll-Kmbgwzxuqkx-Ebd Tab (Gluc/Jonah-Msm#2/C/D3/Vidal/Born) 1 Each Tablet 1 Each PO BID 07/17/15 Reported Glimepiride 1 Mg Tablet 0.5 Tab PO DAILY 07/17/15 Reported Losartan Potassium 100 Mg Tablet 100 Mg PO DAILY 01/10/14 Reported Diclofenac Sodium 75 Mg Tablet.dr 75 Mg PO BID 01/10/14 Reported Nitrostat (Nitroglycerin) 0.4 Mg Tab.subl 0.4 Mg SL PRN 01/10/14 Reported Viagra (Sildenafil Citrate) 100 Mg Tablet 100 Mg PO PRN 01/10/14 Reported Potassium Chloride 10 Meq Tablet.er 10 Meq PO DAILY 01/10/14 Reported Metformin Hcl 1,000 Mg Tablet 1,000 Mg PO DAILY08 01/10/14 Reported Hydrochlorothiazide Tablet (Hydrochlorothiazide) 25 Mg Tablet 25 Mg PO DAILY 01/10/14 Reported Metoprolol Tartrate 100 Mg Tablet 50 Mg PO BID 01/10/14 Reported Flovent 50MCG Diskus (Fluticasone Propionate) 50 Mcg Disk.w.dev 50 Mcg IH DAILY 01/10/14 Reported Citalopram Hbr (Citalopram Hydrobromide) 20 Mg Tablet 20 Mg PO BID 01/10/14 Reported Nifedipine Er (Nifedipine) 90 Mg Tab.er.24 90 Mg PO DAILY 01/10/14 Reported Multivitamins (Multivitamin) 1 Each Tablet 1 Each PO DAILY 01/10/14 Reported Fish Oil 1,200 Mg Fish Oil (Fish Oil/Dha/Epa) 1 Each Capsule 1 Each PO BID 01/10/14 Reported Impression . 1. Acute hypoxic respiratory failure secondary ACUTE CHF/ cxr 07/29 with CHF 2. Acute non-ST myocardial infarction with markedly elevated troponin levels. 3. Acute encephalopathy METABOLIC/TOXIC?/ resolved 4. Increased CPK secondary to rhabdomyolysis. 5. Syncope secondary to myocardial infarction. 6. No significant history of tobacco use. 7. Leukocytosis. The patient had recent back surgery and had staph infection. now with Staph bacteremia 8. No evidence of PE by VQ Plan . EXTRA IV LASIX CXR F/U POST DIURESIS PT HAS HAD A SLEEP STUDY IN PAST ,NO ESPERANZA ANITBX PER ID DR MARSHALL INPUT NOTED SPOKE WITH AND RN KIM HAJI MD Jul 30, 2017 11:51
[2017-07-30] MEDS: HYDROcodone/APAP 7.5/325MG 1 TAB TABLET PO PRN ×3 (12:11→20:33)
[2017-07-30] MEDS: ACETAMINOPHEN 325 MG TABLET. PO PRN (12:11)
[2017-07-30] MEDS ORDERED: FUROSEMIDE 40 MG/4 ML VIAL. IVP ONE (12:30)
[2017-07-30 15:55] VITALS: BP 115/64
--- NOTE | 2017-07-30 16:38 | PDOC ---
PROGRESS NOTES Subjective Subjective patient seen at 1510 up in chair some back pain but better today Objective Objective Vital Signs Date Time Temp Pulse Resp B/P (MAP) Pulse Ox O2 Delivery O2 Flow Rate FiO2 07/30/17 16:19 94 Nasal Cannula 2.0 07/30/17 15:55 98.6 90 20 115/64 (81) 98.6 Intake and Output 07/31/17 07:00 Intake Total 800 ml Output Total 550 ml Balance 250 ml Intake Oral 800 ml Output Urine Total 550 ml Physical Exam General: Alert, Cooperative, No acute distress MUSCULOSKELETAL: Other (NUNO) Neuro: Other (normal strength in BLE) Plan Plan of Care lumbar stenosis positive blood cultures- continue antibiotics cardiac cath when appropriate will need f/u MRI of lumbar spine in 4 weeks PT d/w Patient and Comment Review of Relevant I have reviewed the following items kyler (where applicable) has been applied. Labs Laboratory Tests Test 07/28/17 17:03 07/28/17 20:32 07/29/17 04:25 07/29/17 07:11 Glucose (Fingerstick) 150 mg/dL (70-99) 144 mg/dL (70-99) 138 mg/dL (70-99) White Blood Count 14.2 x10^3/uL (4.0-11.0) Red Blood Count 3.78 x10^6/uL (4.30-5.70) Hemoglobin 10.8 g/dL (13.0-17.5) Hematocrit 30.9 % (39.0-53.0) Mean Corpuscular Volume 82 fL (79-100) Mean Corpuscular Hemoglobin 29 pg (25-35) Mean Corpuscular Hemoglobin Concent 35 g/dL (31-37) Red Cell Distribution Width 14.2 % (11.5-14.5) Platelet Count 233 x10^3/uL (140-400) Neutrophils (%) (Auto) 88 % (31-73) Lymphocytes (%) (Auto) 4 % (24-48) Monocytes (%) (Auto) 8 % (0-9) Eosinophils (%) (Auto) 1 % (0-3) Basophils (%) (Auto) 0 % (0-3) Neutrophils # (Auto) 12.4 x10^3uL (1.8-7.7) Lymphocytes # (Auto) 0.5 x10^3/uL (1.0-4.8) Monocytes # (Auto) 1.2 x10^3/uL (0.0-1.1) Eosinophils # (Auto) 0.1 x10^3/uL (0.0-0.7) Basophils # (Auto) 0.0 x10^3/uL (0.0-0.2) Sodium Level 132 mmol/L (136-145) Potassium Level 3.5 mmol/L (3.5-5.1) Chloride Level 95 mmol/L (98-107) Carbon Dioxide Level 26 mmol/L (21-32) Anion Gap 11 (6-14) Blood Urea Nitrogen 30 mg/dL (8-26) Creatinine 1.3 mg/dL (0.7-1.3) Estimated GFR (Cockcroft-Gault) 54.6 Glucose Level 154 mg/dL (70-99) Calcium Level 8.4 mg/dL (8.5-10.1) Test 07/29/17 19:25 07/29/17 22:28 07/30/17 04:25 07/30/17 07:35 O2 Saturation 98 % (92-99) Arterial Blood pH 7.50 (7.35-7.45) Arterial Blood pCO2 at Patient Temp 33 mmHg (35-46) Arterial Blood pO2 at Patient Temp 129 mmHg (65-108) Arterial Blood HCO3 25 mmol/L (21-28) Arterial Blood Base Excess 2 mmol/L (-3-3) FiO2 60.0 Glucose (Fingerstick) 128 mg/dL (70-99) 113 mg/dL (70-99) White Blood Count 11.8 x10^3/uL (4.0-11.0) Red Blood Count 3.68 x10^6/uL (4.30-5.70) Hemoglobin 10.3 g/dL (13.0-17.5) Hematocrit 29.7 % (39.0-53.0) Mean Corpuscular Volume 81 fL (79-100) Mean Corpuscular Hemoglobin 28 pg (25-35) Mean Corpuscular Hemoglobin Concent 35 g/dL (31-37) Red Cell Distribution Width 14.2 % (11.5-14.5) Platelet Count 258 x10^3/uL (140-400) Neutrophils (%) (Auto) 79 % (31-73) Lymphocytes (%) (Auto) 7 % (24-48) Monocytes (%) (Auto) 11 % (0-9) Eosinophils (%) (Auto) 3 % (0-3) Basophils (%) (Auto) 1 % (0-3) Neutrophils # (Auto) 9.4 x10^3uL (1.8-7.7) Lymphocytes # (Auto) 0.8 x10^3/uL (1.0-4.8) Monocytes # (Auto) 1.3 x10^3/uL (0.0-1.1) Eosinophils # (Auto) 0.3 x10^3/uL (0.0-0.7) Basophils # (Auto) 0.1 x10^3/uL (0.0-0.2) Sodium Level 134 mmol/L (136-145) Potassium Level 3.1 mmol/L (3.5-5.1) Chloride Level 96 mmol/L (98-107) Carbon Dioxide Level 31 mmol/L (21-32) Anion Gap 7 (6-14) Blood Urea Nitrogen 26 mg/dL (8-26) Creatinine 1.1 mg/dL (0.7-1.3) Estimated GFR (Cockcroft-Gault) 66.2 Glucose Level 110 mg/dL (70-99) Calcium Level 8.3 mg/dL (8.5-10.1) Laboratory Tests Test 07/29/17 19:25 07/29/17 22:28 07/30/17 04:25 07/30/17 07:35 O2 Saturation 98 % (92-99) Arterial Blood pH 7.50 (7.35-7.45) Arterial Blood pCO2 at Patient Temp 33 mmHg (35-46) Arterial Blood pO2 at Patient Temp 129 mmHg (65-108) Arterial Blood HCO3 25 mmol/L (21-28) Arterial Blood Base Excess 2 mmol/L (-3-3) FiO2 60.0 Glucose (Fingerstick) 128 mg/dL (70-99) 113 mg/dL (70-99) White Blood Count 11.8 x10^3/uL (4.0-11.0) Red Blood Count 3.68 x10^6/uL (4.30-5.70) Hemoglobin 10.3 g/dL (13.0-17.5) Hematocrit 29.7 % (39.0-53.0) Mean Corpuscular Volume 81 fL (79-100) Mean Corpuscular Hemoglobin 28 pg (25-35) Mean Corpuscular Hemoglobin Concent 35 g/dL (31-37) Red Cell Distribution Width 14.2 % (11.5-14.5) Platelet Count 258 x10^3/uL (140-400) Neutrophils (%) (Auto) 79 % (31-73) Lymphocytes (%) (Auto) 7 % (24-48) Monocytes (%) (Auto) 11 % (0-9) Eosinophils (%) (Auto) 3 % (0-3) Basophils (%) (Auto) 1 % (0-3) Neutrophils # (Auto) 9.4 x10^3uL (1.8-7.7) Lymphocytes # (Auto) 0.8 x10^3/uL (1.0-4.8) Monocytes # (Auto) 1.3 x10^3/uL (0.0-1.1) Eosinophils # (Auto) 0.3 x10^3/uL (0.0-0.7) Basophils # (Auto) 0.1 x10^3/uL (0.0-0.2) Sodium Level 134 mmol/L (136-145) Potassium Level 3.1 mmol/L (3.5-5.1) Chloride Level 96 mmol/L (98-107) Carbon Dioxide Level 31 mmol/L (21-32) Anion Gap 7 (6-14) Blood Urea Nitrogen 26 mg/dL (8-26) Creatinine 1.1 mg/dL (0.7-1.3) Estimated GFR (Cockcroft-Gault) 66.2 Glucose Level 110 mg/dL (70-99) Calcium Level 8.3 mg/dL (8.5-10.1) Microbiology 07/28/17 Blood Culture - Preliminary, Resulted NO GROWTH AFTER 2 DAYS Medications Current Medications Citalopram Hydrobromide (CeleXA) 20 mg BID PO Last administered on 07/30/17 08 :19; Start 07/25/17 at 21:00 Docusate Sodium (Colace) 100 mg BID PO Last administered on 07/30/17 08:19; Start 07/25/17 at 21:00 Gabapentin (Neurontin) 100 mg TID PO Last administered on 07/30/17 14:16; Start 07/25/17 at 21:00 Hydrochlorothiazide (Hydrodiuril) 25 mg DAILY PO Last administered on 08:30; Start 07/26/17 at 09:00; Stop 07/27/17 at 14:23; Status DC Acetaminophen/ Hydrocodone Bitart (Lortab 7.5/325) 1 tab PRN Q6HRS PRN PO PAIN Last administered on 07/30/17 12:11; Start 07/25/17 at 19:45 Metformin HCl (Glucophage) 1,000 mg DAILY08 PO Last administered on 07/30/17 08:18; Start 07/26/17 at 08:00 Metformin HCl (Glucophage) 500 mg DAILYBFRSUP PO Last administered on 18:39; Start 07/26/17 at 17:00 Methocarbamol (Robaxin) 750 mg TID PO Last administered on 07/26/17 08:38; Start 07/25/17 at 21:00; Stop 07/26/17 at 18:44; Status DC Potassium Chloride (Klor-Con) 10 meq DAILYWBKFT PO Last administered on 08:33; Start 07/26/17 at 08:00; Stop 07/26/17 at 08:55; Status DC Tamsulosin HCl (Flomax) 0.4 mg DAILY PO Last administered on 07/30/17 08:18; Start 07/26/17 at 09:00 Diclofenac Sodium (Voltaren) 75 mg BID PO Last administered on 07/28/17 09:04 ; Start 07/25/17 at 21:00; Stop 07/28/17 at 19:45; Status DC Fish Oil (Fish Oil) 1,000 mg BID PO Last administered on 07/30/17 08:18; Start 07/25/17 at 21:00 Fluticasone Propionate (Flonase) 2 spray DAILY NS Last administered on 08:16; Start 07/26/17 at 09:00 Glimepiride (Amaryl) 0.5 mg DAILY PO Last administered on 07/30/17 08:18; Start 07/26/17 at 09:00 Non-Formulary Medication 1 each BID PO ; Start 07/25/17 at 21:00; Status UNV Losartan Potassium (Cozaar) 100 mg DAILY PO Last administered on 07/30/17 08: 20; Start 07/26/17 at 09:00 Atorvastatin Calcium (Lipitor) 5 mg QHS PO Last administered on 07/29/17 20:01 ; Start 07/25/17 at 21:00 Metoprolol Tartrate (Lopressor) 50 mg BID PO Last administered on 07/30/17 08: 19; Start 07/25/17 at 21:00 Multivitamins (Thera M Plus) 1 tab DAILY PO Last administered on 07/30/17 08: 17; Start 07/26/17 at 09:00 Nifedipine (Procardia Xl) 90 mg DAILY PO Last administered on 07/30/17 08:17; Start 07/26/17 at 09:00 Sodium Chloride 1,000 ml @ 1,000 mls/hr 1X ONCE IV Last administered on 21:56; Start 07/25/17 at 19:45; Stop 07/25/17 at 20:44; Status DC Potassium Chloride (Klor-Con) 40 meq 1X ONCE PO Last administered on 21:41; Start 07/25/17 at 19:45; Stop 07/25/17 at 19:48; Status DC Sodium Chloride 1,000 ml @ 100 mls/hr 1X ONCE IV Last administered on 21:53; Start 07/25/17 at 19:45; Stop 07/26/17 at 05:44; Status DC Insulin Aspart (NovoLOG) 0-7 UNITS TIDWMEALS SQ Last administered on 07/27/17 16:58; Start 07/26/17 at 08:00 Dextrose (Dextrose 50%-Water Syringe) 12.5 gm PRN Q15MIN PRN IV SEE COMMENTS; Start 07/25/17 at 20:00 Info (Do NOT chart on this placeholder) 0.5 each 1X ONCE MC ; Start 07/26/17 at 09:00; Stop 07/26/17 at 09:01; Status UNV Influenza Virus Vaccine Quadrival (Fluarix Quad [id number] Syringe) 0.5 ml ONCE ONCE VAX IM Last administered on 07/28/17 09:31; Start 07/26/17 at 09:00; Stop 07/26/17 at 09:01; Status DC Albuterol/ Ipratropium (Duoneb) 3 ml RTQID NEB Last administered on 07/30/17 16:17; Start 07/26/17 at 08:00 Albuterol Sulfate (Ventolin Neb Soln) 2.5 mg PRN Q2HRS PRN NEB SHORTNESS OF BREATH Last administered on 07/26/17 02:00; Start 07/26/17 at 01:30 Enoxaparin Sodium (Lovenox 100mg Syringe) 100 mg 1X ONCE SQ Last administered on 07/26/17 02:08; Start 07/26/17 at 02:00; Stop 07/26/17 at 02:04; Status DC Heparin Sodium/ Dextrose 500 ml @ 0 mls/hr CONT PRN IV SEE I/O RECORD Last administered on 07/26/17 03:42; Start 07/26/17 at 03:30; Stop 07/28/17 at 08:16 ; Status DC Heparin Sodium (Porcine) (Heparin Sodium) 2,450 unit PRN Q6HRS PRN IV FOR UFH LEVEL LESS THAN 0.2; Start 07/26/17 at 03:30; Stop 07/28/17 at 08:16; Status DC Info (Anti-Coagulation Monitoring By Pharmacy) 1 each PRN DAILY PRN MC SEE COMMENTS Last administered on 07/27/17 10:04; Start 07/26/17 at 03:30; Stop at 08:16; Status DC Vancomycin HCl (Vanco Per Pharmacy) 1 each PRN DAILY PRN MC SEE COMMENTS Last administered on 07/28/17 00:18; Start 07/26/17 at 08:15; Stop 07/28/17 at 12:53 ; Status DC Meropenem 1 gm/ Sodium Chloride 100 ml @ 200 mls/hr Q8HRS IV Last administered on 07/29/17 05:54; Start 07/26/17 at 08:30; Stop 07/29/17 at 08:23 ; Status DC Vancomycin HCl 2 gm/Sodium Chloride 500 ml @ 250 mls/hr 1X ONCE IV Last administered on 07/26/17 09:27; Start 07/26/17 at 08:30; Stop 07/26/17 at 10:29 ; Status DC Potassium Chloride (Klor-Con) 40 meq DAILYWBKFT PO Last administered on 08:18; Start 07/26/17 at 09:30 Vancomycin HCl 1.25 gm/Sodium Chloride 250 ml @ 167 mls/hr Q12H IV Last administered on 07/27/17 21:37; Start 07/26/17 at 22:00; Stop 07/28/17 at 01:00 ; Status DC Vancomycin HCl 1 each 1X ONCE MC Last administered on 07/27/17 21:30; Start 07/27/17 at 21:30; Stop 07/27/17 at 21:31; Status DC Furosemide (Lasix) 40 mg 1X ONCE IVP Last administered on 07/26/17 11:47; Start 07/26/17 at 11:30; Stop 07/26/17 at 11:31; Status DC Gadobutrol (Gadavist) 10 mmol 1X ONCE IV Last administered on 07/26/17 16:19 ; Start 07/26/17 at 16:15; Stop 07/26/17 at 16:16; Status DC Morphine Sulfate 3 mg PRN Q3HRS PRN IV PAIN Last administered on 07/29/17 01: 45; Start 07/27/17 at 08:30 Morphine Sulfate 4 mg PRN Q3HRS PRN IV PAIN; Start 07/27/17 at 08:30 Morphine Sulfate 5 mg PRN Q3HRS PRN IV PAIN; Start 07/27/17 at 08:45 Gadobutrol (Gadavist) 9 mmol 1X ONCE IV Last administered on 07/27/17 10:37; Start 07/27/17 at 10:15; Stop 07/27/17 at 10:16; Status DC Furosemide (Lasix) 40 mg 1X ONCE IVP Last administered on 07/27/17 14:12; Start 07/27/17 at 14:00; Stop 07/27/17 at 14:01; Status DC Vancomycin HCl 1.5 gm/Sodium Chloride 500 ml @ 250 mls/hr Q24H IV ; Start 07/28 at 22:00; Stop 07/28/17 at 22:00; Status DC Vancomycin HCl 1 each 1X ONCE MC ; Start 07/30/17 at 21:30; Stop 07/30/17 at 21 :30; Status DC Acetaminophen (Tylenol) 650 mg PRN Q6HRS PRN PO FEVER > 100.5'F Last administered on 07/30/17 12:11; Start 07/28/17 at 05:30 Tamsulosin HCl (Flomax) 0.4 mg QHS PO ; Start 07/28/17 at 21:00; Status UNV Cefazolin Sodium/ Dextrose 50 ml @ 100 mls/hr Q8HRS IV Last administered on 14:16; Start 07/29/17 at 08:30 Polyethylene Glycol (miraLAX PACKET) 17 gm DAILY PO Last administered on 08:16; Start 07/29/17 at 09:00 Lorazepam (Ativan) 1 mg PRN Q4HRS PRN IV ANXIETY / AGITATION; Start 07/29/17 at 12:15 Furosemide (Lasix) 40 mg 1X ONCE IVP Last administered on 07/29/17 20:03; Start 07/29/17 at 19:45; Stop 07/29/17 at 19:46; Status DC Potassium Chloride (Klor-Con) 40 meq 1X ONCE PO Last administered on 12:10; Start 07/30/17 at 09:00; Stop 07/30/17 at 09:01; Status DC Magnesium Citrate (Citroma) 296 ml PRN 1X PRN PO CONSTIPATION; Start 07/30/17 at 11:15 Furosemide (Lasix) 40 mg 1X ONCE IVP Last administered on 07/30/17 14:16; Start 07/30/17 at 12:30; Stop 07/30/17 at 12:31; Status DC Active Scripts Active Colace (Docusate Sodium) 100 Mg Capsule 100 Mg PO BID 60 Days Methocarbamol 750 Mg Tablet 750 Mg PO TID 60 Days Hydrocodone-Apap 7.5-325 (Hydrocodone Bit/Acetaminophen) 1 Each Tablet 1 Tab PO PRN Q6HRS PRN 60 Days Reported Tamsulosin Hcl 0.4 Mg Cap.er.24h 0.4 Mg PO DAILY Metformin Hcl 500 Mg Tablet 500 Mg PO DAILYBFRSUP Gabapentin 100 Mg Capsule 100 Mg PO TID Lovastatin 20 Mg Tablet 1 Tab PO DAILY Kuhimnbbey-Etnppaqkfzs-Egf Tab (Gluc/Jonah-Msm#2/C/D3/Vidal/Born) 1 Each Tablet 1 Each PO BID Glimepiride 1 Mg Tablet 0.5 Tab PO DAILY Losartan Potassium 100 Mg Tablet 100 Mg PO DAILY Diclofenac Sodium 75 Mg Tablet.dr 75 Mg PO BID Nitrostat (Nitroglycerin) 0.4 Mg Tab.subl 0.4 Mg SL PRN Viagra (Sildenafil Citrate) 100 Mg Tablet 100 Mg PO PRN Potassium Chloride 10 Meq Tablet.er 10 Meq PO DAILY Metformin Hcl 1,000 Mg Tablet 1,000 Mg PO DAILY08 Hydrochlorothiazide Tablet (Hydrochlorothiazide) 25 Mg Tablet 25 Mg PO DAILY Metoprolol Tartrate 100 Mg Tablet 50 Mg PO BID Flovent 50MCG Diskus (Fluticasone Propionate) 50 Mcg Disk.w.dev 50 Mcg IH DAILY Citalopram Hbr (Citalopram Hydrobromide) 20 Mg Tablet 20 Mg PO BID Nifedipine Er (Nifedipine) 90 Mg Tab.er.24 90 Mg PO DAILY Multivitamins (Multivitamin) 1 Each Tablet 1 Each PO DAILY Fish Oil 1,200 Mg Fish Oil (Fish Oil/Dha/Epa) 1 Each Capsule 1 Each PO BID Vitals/I & O Vital Sign - Last 24 Hours 07/29/17 07/29/17 07/29/17 07/29/17 17:18 19:15 19:36 19:40 Temp 99.4 99.2 99.4 99.2 Pulse 86 Resp 18 B/P (MAP) 141/74 (96) Pulse Ox 95 99 98 O2 Delivery BiPAP/CPAP BiPAP/CPAP BiPAP/CPAP 07/29/17 07/29/17 07/29/17 07/29/17 20:00 20:03 22:09 22:16 Temp 99.1 99.1 Pulse 86 76 Resp 18 B/P (MAP) 141/74 138/70 (92) Pulse Ox 99 99 O2 Delivery Bi-pap BiPAP/CPAP BiPAP/CPAP O2 Flow Rate 4.0 07/29/17 07/30/17 07/30/17 07/30/17 23:25 01:06 02:30 03:40 Temp 98.7 98.7 Pulse 69 Resp 16 B/P (MAP) 124/66 (85) Pulse Ox 99 99 98 98 O2 Delivery BiPAP/CPAP BiPAP/CPAP BiPAP/CPAP BiPAP/CPAP 07/30/17 07/30/17 07/30/17 07/30/17 05:45 07:00 07:30 08:17 Temp 99.0 99.0 Pulse 87 87 Resp 20 B/P (MAP) 146/77 (100) 146/77 Pulse Ox 97 90 O2 Delivery BiPAP/CPAP Nasal Cannula Nasal Cannula O2 Flow Rate 2.0 2.0 07/30/17 07/30/17 07/30/17 07/30/17 08:19 08:20 10:58 11:34 Temp 100.6 100.6 Pulse 87 87 77 Resp 20 B/P (MAP) 146/77 146/77 140/79 (99) Pulse Ox 90 86 O2 Delivery Nasal Cannula Nasal Cannula O2 Flow Rate 2.0 2.0 07/30/17 07/30/17 15:55 16:19 Temp 98.6 98.6 Pulse 90 Resp 20 B/P (MAP) 115/64 (81) Pulse Ox 93 94 O2 Delivery Nasal Cannula Nasal Cannula O2 Flow Rate 2.0 2.0 Intake and Output 07/30/17 07/30/17 07/31/17 15:00 23:00 07:00 Intake Total 800 ml Output Total 550 ml Balance 250 ml REINA OLIVARES MD Jul 30, 2017 16:38
[2017-07-30] MEDS: metFORMIN 500 MG TABLET PO SCH (16:39)
--- NOTE | 2017-07-30 19:43 | PDOC ---
PROGRESS NOTES Subjective Subjective Patient alert and responsive. Looks a lot better today than he did yesterday. No chest pains. No cardiac complaints. Objective Objective Vital Signs Date Time Temp Pulse Resp B/P (MAP) Pulse Ox O2 Delivery O2 Flow Rate FiO2 07/30/17 16:19 94 Nasal Cannula 2.0 07/30/17 15:55 98.6 90 20 115/64 (81) 98.6 Intake and Output 07/31/17 07:00 Intake Total 1700 ml Output Total 1550 ml Balance 150 ml Intake Oral 1700 ml Output Urine Total 1550 ml Physical Exam Physical Exam No significant changes and cardiac exam Assessment Assessment Patient seems to be improving. From a cardiac standpoint I think that he needs to have a heart catheterization in the near future but I would like for him to be in better shape and without evidence of infection. He may be discharged to a rehabilitation facility to continue with the antibiotics as well as the physical therapy. If he is discharged we can bring him back any time that he is stable to do an outpatient heart catheterization. Comment Review of Relevant I have reviewed the following items kyler (where applicable) has been applied. Labs Laboratory Tests Test 07/28/17 20:32 07/29/17 04:25 07/29/17 07:11 07/29/17 19:25 Glucose (Fingerstick) 144 mg/dL (70-99) 138 mg/dL (70-99) White Blood Count 14.2 x10^3/uL (4.0-11.0) Red Blood Count 3.78 x10^6/uL (4.30-5.70) Hemoglobin 10.8 g/dL (13.0-17.5) Hematocrit 30.9 % (39.0-53.0) Mean Corpuscular Volume 82 fL (79-100) Mean Corpuscular Hemoglobin 29 pg (25-35) Mean Corpuscular Hemoglobin Concent 35 g/dL (31-37) Red Cell Distribution Width 14.2 % (11.5-14.5) Platelet Count 233 x10^3/uL (140-400) Neutrophils (%) (Auto) 88 % (31-73) Lymphocytes (%) (Auto) 4 % (24-48) Monocytes (%) (Auto) 8 % (0-9) Eosinophils (%) (Auto) 1 % (0-3) Basophils (%) (Auto) 0 % (0-3) Neutrophils # (Auto) 12.4 x10^3uL (1.8-7.7) Lymphocytes # (Auto) 0.5 x10^3/uL (1.0-4.8) Monocytes # (Auto) 1.2 x10^3/uL (0.0-1.1) Eosinophils # (Auto) 0.1 x10^3/uL (0.0-0.7) Basophils # (Auto) 0.0 x10^3/uL (0.0-0.2) Sodium Level 132 mmol/L (136-145) Potassium Level 3.5 mmol/L (3.5-5.1) Chloride Level 95 mmol/L (98-107) Carbon Dioxide Level 26 mmol/L (21-32) Anion Gap 11 (6-14) Blood Urea Nitrogen 30 mg/dL (8-26) Creatinine 1.3 mg/dL (0.7-1.3) Estimated GFR (Cockcroft-Gault) 54.6 Glucose Level 154 mg/dL (70-99) Calcium Level 8.4 mg/dL (8.5-10.1) O2 Saturation 98 % (92-99) Arterial Blood pH 7.50 (7.35-7.45) Arterial Blood pCO2 at Patient Temp 33 mmHg (35-46) Arterial Blood pO2 at Patient Temp 129 mmHg (65-108) Arterial Blood HCO3 25 mmol/L (21-28) Arterial Blood Base Excess 2 mmol/L (-3-3) FiO2 60.0 Test 07/29/17 22:28 07/30/17 04:25 07/30/17 07:35 07/30/17 11:32 Glucose (Fingerstick) 128 mg/dL (70-99) 113 mg/dL (70-99) 131 mg/dL (70-99) White Blood Count 11.8 x10^3/uL (4.0-11.0) Red Blood Count 3.68 x10^6/uL (4.30-5.70) Hemoglobin 10.3 g/dL (13.0-17.5) Hematocrit 29.7 % (39.0-53.0) Mean Corpuscular Volume 81 fL (79-100) Mean Corpuscular Hemoglobin 28 pg (25-35) Mean Corpuscular Hemoglobin Concent 35 g/dL (31-37) Red Cell Distribution Width 14.2 % (11.5-14.5) Platelet Count 258 x10^3/uL (140-400) Neutrophils (%) (Auto) 79 % (31-73) Lymphocytes (%) (Auto) 7 % (24-48) Monocytes (%) (Auto) 11 % (0-9) Eosinophils (%) (Auto) 3 % (0-3) Basophils (%) (Auto) 1 % (0-3) Neutrophils # (Auto) 9.4 x10^3uL (1.8-7.7) Lymphocytes # (Auto) 0.8 x10^3/uL (1.0-4.8) Monocytes # (Auto) 1.3 x10^3/uL (0.0-1.1) Eosinophils # (Auto) 0.3 x10^3/uL (0.0-0.7) Basophils # (Auto) 0.1 x10^3/uL (0.0-0.2) Sodium Level 134 mmol/L (136-145) Potassium Level 3.1 mmol/L (3.5-5.1) Chloride Level 96 mmol/L (98-107) Carbon Dioxide Level 31 mmol/L (21-32) Anion Gap 7 (6-14) Blood Urea Nitrogen 26 mg/dL (8-26) Creatinine 1.1 mg/dL (0.7-1.3) Estimated GFR (Cockcroft-Gault) 66.2 Glucose Level 110 mg/dL (70-99) Calcium Level 8.3 mg/dL (8.5-10.1) Test 07/30/17 16:54 Glucose (Fingerstick) 175 mg/dL (70-99) Laboratory Tests Test 07/29/17 22:28 07/30/17 04:25 07/30/17 07:35 07/30/17 11:32 Glucose (Fingerstick) 128 mg/dL (70-99) 113 mg/dL (70-99) 131 mg/dL (70-99) White Blood Count 11.8 x10^3/uL (4.0-11.0) Red Blood Count 3.68 x10^6/uL (4.30-5.70) Hemoglobin 10.3 g/dL (13.0-17.5) Hematocrit 29.7 % (39.0-53.0) Mean Corpuscular Volume 81 fL (79-100) Mean Corpuscular Hemoglobin 28 pg (25-35) Mean Corpuscular Hemoglobin Concent 35 g/dL (31-37) Red Cell Distribution Width 14.2 % (11.5-14.5) Platelet Count 258 x10^3/uL (140-400) Neutrophils (%) (Auto) 79 % (31-73) Lymphocytes (%) (Auto) 7 % (24-48) Monocytes (%) (Auto) 11 % (0-9) Eosinophils (%) (Auto) 3 % (0-3) Basophils (%) (Auto) 1 % (0-3) Neutrophils # (Auto) 9.4 x10^3uL (1.8-7.7) Lymphocytes # (Auto) 0.8 x10^3/uL (1.0-4.8) Monocytes # (Auto) 1.3 x10^3/uL (0.0-1.1) Eosinophils # (Auto) 0.3 x10^3/uL (0.0-0.7) Basophils # (Auto) 0.1 x10^3/uL (0.0-0.2) Sodium Level 134 mmol/L (136-145) Potassium Level 3.1 mmol/L (3.5-5.1) Chloride Level 96 mmol/L (98-107) Carbon Dioxide Level 31 mmol/L (21-32) Anion Gap 7 (6-14) Blood Urea Nitrogen 26 mg/dL (8-26) Creatinine 1.1 mg/dL (0.7-1.3) Estimated GFR (Cockcroft-Gault) 66.2 Glucose Level 110 mg/dL (70-99) Calcium Level 8.3 mg/dL (8.5-10.1) Test 07/30/17 16:54 Glucose (Fingerstick) 175 mg/dL (70-99) Microbiology 07/28/17 Blood Culture - Preliminary, Resulted NO GROWTH AFTER 2 DAYS Medications Current Medications Citalopram Hydrobromide (CeleXA) 20 mg BID PO Last administered on 07/30/17t 08 :19; Start 07/25/17 at 21:00 Docusate Sodium (Colace) 100 mg BID PO Last administered on 07/30/17 08:19; Start 07/25/17 at 21:00 Gabapentin (Neurontin) 100 mg TID PO Last administered on 07/30/17 14:16; Start 07/25/17 at 21:00 Hydrochlorothiazide (Hydrodiuril) 25 mg DAILY PO Last administered on 08:30; Start 07/26/17 at 09:00; Stop 07/27/17 at 14:23; Status DC Acetaminophen/ Hydrocodone Bitart (Lortab 7.5/325) 1 tab PRN Q6HRS PRN PO PAIN Last administered on 07/30/17 16:37; Start 07/25/17 at 19:45; Stop 07/30/17 at 17:09; Status DC Metformin HCl (Glucophage) 1,000 mg DAILY08 PO Last administered on 07/30/17 08:18; Start 07/26/17 at 08:00 Metformin HCl (Glucophage) 500 mg DAILYBFRSUP PO Last administered on 16:39; Start 07/26/17 at 17:00 Methocarbamol (Robaxin) 750 mg TID PO Last administered on 07/26/17 08:38; Start 07/25/17 at 21:00; Stop 07/26/17 at 18:44; Status DC Potassium Chloride (Klor-Con) 10 meq DAILYWBKFT PO Last administered on 08:33; Start 07/26/17 at 08:00; Stop 07/26/17 at 08:55; Status DC Tamsulosin HCl (Flomax) 0.4 mg DAILY PO Last administered on 07/30/17 08:18; Start 07/26/17 at 09:00 Diclofenac Sodium (Voltaren) 75 mg BID PO Last administered on 07/28/17 09:04 ; Start 07/25/17 at 21:00; Stop 07/28/17 at 19:45; Status DC Fish Oil (Fish Oil) 1,000 mg BID PO Last administered on 07/30/17 08:18; Start 07/25/17 at 21:00 Fluticasone Propionate (Flonase) 2 spray DAILY NS Last administered on 08:16; Start 07/26/17 at 09:00 Glimepiride (Amaryl) 0.5 mg DAILY PO Last administered on 07/30/17 08:18; Start 07/26/17 at 09:00 Non-Formulary Medication 1 each BID PO ; Start 07/25/17 at 21:00; Status UNV Losartan Potassium (Cozaar) 100 mg DAILY PO Last administered on 07/30/17 08: 20; Start 07/26/17 at 09:00 Atorvastatin Calcium (Lipitor) 5 mg QHS PO Last administered on 07/29/17 20:01 ; Start 07/25/17 at 21:00 Metoprolol Tartrate (Lopressor) 50 mg BID PO Last administered on 07/30/17 08: 19; Start 07/25/17 at 21:00 Multivitamins (Thera M Plus) 1 tab DAILY PO Last administered on 07/30/17 08: 17; Start 07/26/17 at 09:00 Nifedipine (Procardia Xl) 90 mg DAILY PO Last administered on 07/30/17 08:17; Start 07/26/17 at 09:00 Sodium Chloride 1,000 ml @ 1,000 mls/hr 1X ONCE IV Last administered on 21:56; Start 07/25/17 at 19:45; Stop 07/25/17 at 20:44; Status DC Potassium Chloride (Klor-Con) 40 meq 1X ONCE PO Last administered on 21:41; Start 07/25/17 at 19:45; Stop 07/25/17 at 19:48; Status DC Sodium Chloride 1,000 ml @ 100 mls/hr 1X ONCE IV Last administered on 21:53; Start 07/25/17 at 19:45; Stop 07/26/17 at 05:44; Status DC Insulin Aspart (NovoLOG) 0-7 UNITS TIDWMEALS SQ Last administered on 07/30/17 17:31; Start 07/26/17 at 08:00 Dextrose (Dextrose 50%-Water Syringe) 12.5 gm PRN Q15MIN PRN IV SEE COMMENTS; Start 07/25/17 at 20:00 Info (Do NOT chart on this placeholder) 0.5 each 1X ONCE MC ; Start 07/26/17 at 09:00; Stop 07/26/17 at 09:01; Status UNV Influenza Virus Vaccine Quadrival (Fluarix Quad [id number] Syringe) 0.5 ml ONCE ONCE VAX IM Last administered on 07/28/17 09:31; Start 07/26/17 at 09:00; Stop 07/26/17 at 09:01; Status DC Albuterol/ Ipratropium (Duoneb) 3 ml RTQID NEB Last administered on 07/30/17 16:17; Start 07/26/17 at 08:00 Albuterol Sulfate (Ventolin Neb Soln) 2.5 mg PRN Q2HRS PRN NEB SHORTNESS OF BREATH Last administered on 07/26/17 02:00; Start 07/26/17 at 01:30 Enoxaparin Sodium (Lovenox 100mg Syringe) 100 mg 1X ONCE SQ Last administered on 07/26/17 02:08; Start 07/26/17 at 02:00; Stop 07/26/17 at 02:04; Status DC Heparin Sodium/ Dextrose 500 ml @ 0 mls/hr CONT PRN IV SEE I/O RECORD Last administered on 07/26/17 03:42; Start 07/26/17 at 03:30; Stop 07/28/17 at 08:16 ; Status DC Heparin Sodium (Porcine) (Heparin Sodium) 2,450 unit PRN Q6HRS PRN IV FOR UFH LEVEL LESS THAN 0.2; Start 07/26/17 at 03:30; Stop 07/28/17 at 08:16; Status DC Info (Anti-Coagulation Monitoring By Pharmacy) 1 each PRN DAILY PRN MC SEE COMMENTS Last administered on 07/27/17 10:04; Start 07/26/17 at 03:30; Stop at 08:16; Status DC Vancomycin HCl (Vanco Per Pharmacy) 1 each PRN DAILY PRN MC SEE COMMENTS Last administered on 07/28/17 00:18; Start 07/26/17 at 08:15; Stop 07/28/17 at 12:53 ; Status DC Meropenem 1 gm/ Sodium Chloride 100 ml @ 200 mls/hr Q8HRS IV Last administered on 07/29/17 05:54; Start 07/26/17 at 08:30; Stop 07/29/17 at 08:23 ; Status DC Vancomycin HCl 2 gm/Sodium Chloride 500 ml @ 250 mls/hr 1X ONCE IV Last administered on 07/26/17 09:27; Start 07/26/17 at 08:30; Stop 07/26/17 at 10:29 ; Status DC Potassium Chloride (Klor-Con) 40 meq DAILYWBKFT PO Last administered on 08:18; Start 07/26/17 at 09:30 Vancomycin HCl 1.25 gm/Sodium Chloride 250 ml @ 167 mls/hr Q12H IV Last administered on 07/27/17 21:37; Start 07/26/17 at 22:00; Stop 07/28/17 at 01:00 ; Status DC Vancomycin HCl 1 each 1X ONCE MC Last administered on 07/27/17 21:30; Start 07/27/17 at 21:30; Stop 07/27/17 at 21:31; Status DC Furosemide (Lasix) 40 mg 1X ONCE IVP Last administered on 07/26/17 11:47; Start 07/26/17 at 11:30; Stop 07/26/17 at 11:31; Status DC Gadobutrol (Gadavist) 10 mmol 1X ONCE IV Last administered on 07/26/17 16:19 ; Start 07/26/17 at 16:15; Stop 07/26/17 at 16:16; Status DC Morphine Sulfate 3 mg PRN Q3HRS PRN IV PAIN Last administered on 07/29/17 01: 45; Start 07/27/17 at 08:30 Morphine Sulfate 4 mg PRN Q3HRS PRN IV PAIN; Start 07/27/17 at 08:30 Morphine Sulfate 5 mg PRN Q3HRS PRN IV PAIN; Start 07/27/17 at 08:45 Gadobutrol (Gadavist) 9 mmol 1X ONCE IV Last administered on 07/27/17 10:37; Start 07/27/17 at 10:15; Stop 07/27/17 at 10:16; Status DC Furosemide (Lasix) 40 mg 1X ONCE IVP Last administered on 07/27/17 14:12; Start 07/27/17 at 14:00; Stop 07/27/17 at 14:01; Status DC Vancomycin HCl 1.5 gm/Sodium Chloride 500 ml @ 250 mls/hr Q24H IV ; Start 07/28 at 22:00; Stop 07/28/17 at 22:00; Status DC Vancomycin HCl 1 each 1X ONCE MC ; Start 07/30/17 at 21:30; Stop 07/30/17 at 21 :30; Status DC Acetaminophen (Tylenol) 650 mg PRN Q6HRS PRN PO FEVER > 100.5'F Last administered on 07/30/17 12:11; Start 07/28/17 at 05:30 Tamsulosin HCl (Flomax) 0.4 mg QHS PO ; Start 07/28/17 at 21:00; Status UNV Cefazolin Sodium/ Dextrose 50 ml @ 100 mls/hr Q8HRS IV Last administered on 14:16; Start 07/29/17 at 08:30 Polyethylene Glycol (miraLAX PACKET) 17 gm DAILY PO Last administered on 08:16; Start 07/29/17 at 09:00 Lorazepam (Ativan) 1 mg PRN Q4HRS PRN IV ANXIETY / AGITATION; Start 07/29/17 at 12:15 Furosemide (Lasix) 40 mg 1X ONCE IVP Last administered on 07/29/17 20:03; Start 07/29/17 at 19:45; Stop 07/29/17 at 19:46; Status DC Potassium Chloride (Klor-Con) 40 meq 1X ONCE PO Last administered on 12:10; Start 07/30/17 at 09:00; Stop 07/30/17 at 09:01; Status DC Magnesium Citrate (Citroma) 296 ml PRN 1X PRN PO CONSTIPATION; Start 07/30/17 at 11:15 Furosemide (Lasix) 40 mg 1X ONCE IVP Last administered on 07/30/17 14:16; Start 07/30/17 at 12:30; Stop 07/30/17 at 12:31; Status DC Acetaminophen/ Hydrocodone Bitart (Lortab 7.5/325) 1 tab PRN Q4HRS PRN PO PAIN ; Start 07/30/17 at 17:15 Active Scripts Active Colace (Docusate Sodium) 100 Mg Capsule 100 Mg PO BID 60 Days Methocarbamol 750 Mg Tablet 750 Mg PO TID 60 Days Hydrocodone-Apap 7.5-325 (Hydrocodone Bit/Acetaminophen) 1 Each Tablet 1 Tab PO PRN Q6HRS PRN 60 Days Reported Tamsulosin Hcl 0.4 Mg Cap.er.24h 0.4 Mg PO DAILY Metformin Hcl 500 Mg Tablet 500 Mg PO DAILYBFRSUP Gabapentin 100 Mg Capsule 100 Mg PO TID Lovastatin 20 Mg Tablet 1 Tab PO DAILY Sefnfzxhzm-Tyfrmfbhwaq-Yvq Tab (Gluc/Jonah-Msm#2/C/D3/Vidal/Born) 1 Each Tablet 1 Each PO BID Glimepiride 1 Mg Tablet 0.5 Tab PO DAILY Losartan Potassium 100 Mg Tablet 100 Mg PO DAILY Diclofenac Sodium 75 Mg Tablet.dr 75 Mg PO BID Nitrostat (Nitroglycerin) 0.4 Mg Tab.subl 0.4 Mg SL PRN Viagra (Sildenafil Citrate) 100 Mg Tablet 100 Mg PO PRN Potassium Chloride 10 Meq Tablet.er 10 Meq PO DAILY Metformin Hcl 1,000 Mg Tablet 1,000 Mg PO DAILY08 Hydrochlorothiazide Tablet (Hydrochlorothiazide) 25 Mg Tablet 25 Mg PO DAILY Metoprolol Tartrate 100 Mg Tablet 50 Mg PO BID Flovent 50MCG Diskus (Fluticasone Propionate) 50 Mcg Disk.w.dev 50 Mcg IH DAILY Citalopram Hbr (Citalopram Hydrobromide) 20 Mg Tablet 20 Mg PO BID Nifedipine Er (Nifedipine) 90 Mg Tab.er.24 90 Mg PO DAILY Multivitamins (Multivitamin) 1 Each Tablet 1 Each PO DAILY Fish Oil 1,200 Mg Fish Oil (Fish Oil/Dha/Epa) 1 Each Capsule 1 Each PO BID Vitals/I & O Vital Sign - Last 24 Hours 07/29/17 07/29/17 07/29/17 07/29/17 20:00 20:03 22:09 22:16 Temp 99.1 99.1 Pulse 86 76 Resp 18 B/P (MAP) 141/74 138/70 (92) Pulse Ox 99 99 O2 Delivery Bi-pap BiPAP/CPAP BiPAP/CPAP O2 Flow Rate 4.0 07/29/17 07/30/17 07/30/17 07/30/17 23:25 01:06 02:30 03:40 Temp 98.7 98.7 Pulse 69 Resp 16 B/P (MAP) 124/66 (85) Pulse Ox 99 99 98 98 O2 Delivery BiPAP/CPAP BiPAP/CPAP BiPAP/CPAP BiPAP/CPAP 07/30/17 07/30/17 07/30/17 07/30/17 05:45 07:00 07:30 08:17 Temp 99.0 99.0 Pulse 87 87 Resp 20 B/P (MAP) 146/77 (100) 146/77 Pulse Ox 97 90 O2 Delivery BiPAP/CPAP Nasal Cannula Nasal Cannula O2 Flow Rate 2.0 2.0 07/30/17 07/30/17 07/30/17 07/30/17 08:19 08:20 10:58 11:34 Temp 100.6 100.6 Pulse 87 87 77 Resp 20 B/P (MAP) 146/77 146/77 140/79 (99) Pulse Ox 90 86 O2 Delivery Nasal Cannula Nasal Cannula O2 Flow Rate 2.0 2.0 07/30/17 07/30/17 15:55 16:19 Temp 98.6 98.6 Pulse 90 Resp 20 B/P (MAP) 115/64 (81) Pulse Ox 93 94 O2 Delivery Nasal Cannula Nasal Cannula O2 Flow Rate 2.0 2.0 Intake and Output 07/30/17 07/30/17 07/31/17 15:00 23:00 07:00 Intake Total 800 ml 900 ml Output Total 550 ml 1000 ml Balance 250 ml -100 ml BRYCE DAILY MD Jul 30, 2017 19:43
[2017-07-30 19:44] VITALS: BP 106/66
[2017-07-30] MEDS: ATORVASTATIN CALCIUM 10 MG TABLET. PO SCH (20:26)
[2017-07-30 23:59] VITALS: BP 112/51
[2017-07-31] MEDS: HYDROcodone/APAP 7.5/325MG 1 TAB TABLET PO PRN ×4 (03:03→22:35)
[2017-07-31 03:10] VITALS: BP 115/62
[2017-07-31 04:12] LABS: BASO # 0.1 x10^3/uL (0.0-0.2); BASO % 1 % (0-3); EOS % 4 % (0-3); HEMATOCRIT 29.5 % (39.0-53.0); HEMOGLOBIN 10.1 g/dL (13.0-17.5); LYMPH # 0.9 x10^3/uL (1.0-4.8); LYMPH % 10 % (24-48); MEAN CORPUSCULAR HEMOGLOBIN 28 pg (25-35); MEAN CORPUSCULAR HGB CONC 34 g/dL (31-37); MEAN CORPUSCULAR VOLUME 83 fL (79-100); MONO % 13 % (0-9); NEUT % 72 % (31-73); PLATELET COUNT 256 x10^3/uL (140-400); RED BLOOD COUNT 3.57 x10^6/uL (4.30-5.70); RED CELL DISTRIBUTION WIDTH 14.2 % (11.5-14.5); WHITE BLOOD COUNT 9.5 x10^3/uL (4.0-11.0)
[2017-07-31 04:31] LABS: CALCIUM 8.3 mg/dL (8.5-10.1); CREATININE 1.2 mg/dL (0.7-1.3); GFR 59.9; POTASSIUM 3.8 mmol/L (3.5-5.1)
[2017-07-31] MEDS: IPRATRPIUM/ALBUTEROL 0.5/2.5MG 3 ML NEBU. NEB SCH ×4 (06:57→20:09)
[2017-07-31 07:14] VITALS: BP 150/82
[2017-07-31] MEDS: INSULIN ASPART 300 UNITS/3 ML INSULN.PEN SQ SCH ×3 (08:00→17:00)
[2017-07-31] MEDS: OMEGA-3 FATTY ACIDS/FISH OIL 1,000 MG CAPSULE. PO SCH ×2 (08:42→22:35)
[2017-07-31] MEDS: MULTIVITAMIN with MINERAL TABLET. PO SCH (08:43)
[2017-07-31] MEDS: TAMSULOSIN 0.4 MG CAP.ER.24H. PO SCH (08:44)
[2017-07-31] MEDS: LOSARTAN POTASSIUM 50 MG TABLET. PO SCH (08:44)
[2017-07-31] MEDS: DOCUSATE SODIUM 100 MG CAPSULE. PO SCH ×2 (08:45→22:35)
[2017-07-31] MEDS: CITALOPRAM 20 MG TABLET. PO SCH ×2 (08:45→22:35)
[2017-07-31] MEDS: POTASSIUM CHLORIDE 20 MEQ TABLET.ER. PO SCH (08:45)
[2017-07-31] MEDS: GABAPENTIN 100 MG CAPSULE. PO SCH ×3 (08:45→22:34)
[2017-07-31] MEDS: POLYETHYLENE GLYCOL 3350 17 GM PACKET. PO SCH (08:46)
[2017-07-31] MEDS: GLIMEPIRIDE 2 MG TABLET. PO SCH (08:46)
[2017-07-31] MEDS: METOPROLOL TART IMMED RELEASE 50 MG TABLET. PO SCH ×2 (08:46→22:36)
--- NOTE | 2017-07-31 08:59 | PDOC ---
Infectious Disease Note Subjective Subjective Better. didn't use bipap Still some back pain 05/05 at times Ambulated some in hallway yesterday No BM Supplemental O2 ROS ROS GEN: Denies fevers, chills, sweats HEENT: Denies blurred vision, sore throat CV: Denies chest pain RESP: Denies shortness of air, cough GI: Denies n/v/d NEURO: Denies confusion, dizziness MSK: Denies weakness, joint pain/swelling Vital Sign Vital Signs Vital Signs Date Time Temp Pulse Resp B/P (MAP) Pulse Ox O2 Delivery O2 Flow Rate FiO2 07/31/17 08:46 85 150/82 07/31/17 08:44 20 92 Nasal Cannula 2.0 07/31/17 07:14 98.4 98.4 Physical Exam PHYSICAL EXAM GENERAL: NAD, Alert, looks better HEENT: PERRL, OC/OP- clear NECK: Supple, no JVD, no LN LUNGS: Clear HEART: S1S2, no gallop, no murmur ABD: Soft, NT,distended some Ortiz EXT: No edema, no cyanosis [employer]: Alert, oriented x 3, no focal neurologic deficit SKIN: No rash IV: ok Labs Lab Laboratory Tests Test 07/30/17 11:32 07/30/17 16:54 07/30/17 21:10 07/31/17 03:45 Glucose (Fingerstick) 131 mg/dL (70-99) 175 mg/dL (70-99) 161 mg/dL (70-99) White Blood Count 9.5 x10^3/uL (4.0-11.0) Red Blood Count 3.57 x10^6/uL (4.30-5.70) Hemoglobin 10.1 g/dL (13.0-17.5) Hematocrit 29.5 % (39.0-53.0) Mean Corpuscular Volume 83 fL (79-100) Mean Corpuscular Hemoglobin 28 pg (25-35) Mean Corpuscular Hemoglobin Concent 34 g/dL (31-37) Red Cell Distribution Width 14.2 % (11.5-14.5) Platelet Count 256 x10^3/uL (140-400) Neutrophils (%) (Auto) 72 % (31-73) Lymphocytes (%) (Auto) 10 % (24-48) Monocytes (%) (Auto) 13 % (0-9) Eosinophils (%) (Auto) 4 % (0-3) Basophils (%) (Auto) 1 % (0-3) Neutrophils # (Auto) 6.8 x10^3uL (1.8-7.7) Lymphocytes # (Auto) 0.9 x10^3/uL (1.0-4.8) Monocytes # (Auto) 1.3 x10^3/uL (0.0-1.1) Eosinophils # (Auto) 0.4 x10^3/uL (0.0-0.7) Basophils # (Auto) 0.1 x10^3/uL (0.0-0.2) Sodium Level 131 mmol/L (136-145) Potassium Level 3.8 mmol/L (3.5-5.1) Chloride Level 95 mmol/L (98-107) Carbon Dioxide Level 31 mmol/L (21-32) Anion Gap 5 (6-14) Blood Urea Nitrogen 24 mg/dL (8-26) Creatinine 1.2 mg/dL (0.7-1.3) Estimated GFR (Cockcroft-Gault) 59.9 Glucose Level 112 mg/dL (70-99) Calcium Level 8.3 mg/dL (8.5-10.1) Test 07/31/17 07:18 Glucose (Fingerstick) 144 mg/dL (70-99) Objective Assessment Staph aureus (MSSA ID'd 07/28 afternoon. Vanc d/cd) bacteremia, POA, 07/25. ECHO without gross valvular disease 07/28 Fever ? infection vs cardiac event. - better Leukocytosis - mild increase. ? reactive - better Encephalopathy - ? illness vs meds - improving Constipation - still an issue Urinary retention - ortiz placed 07/27 Elevated Troponin/CK- NSTEMI Back pain and h/o MSSA infection. s/p fall prior to admit now with fluid collection on MRI. Reviewed Dr. Gu's note PCN allergy - tolerated Cefazolin Hyponatremia - better Plan Plan of Care PICC line 08/01 if stable Repeat blood cult pending from 07/28 am - neg so far Relieve constipation Cont Cefazolin will need min 6 weeks social staff worker for d/c planning Miralax Monitor renal function, WBC and temp D/w JANEE HSIEH MD Jul 31, 2017 08:59
[2017-07-31] MEDS: MAGNESIUM CITRATE 296 ML SOLUTION. PO PRN (09:06)
[2017-07-31] MEDS: FLUTICASONE 50MCG/NASAL SPRAY 16GM BOTTLE. NS SCH (09:06)
[2017-07-31 10:49] VITALS: BP 146/77
--- NOTE | 2017-07-31 11:19 | PDOC ---
PROGRESS NOTES Chief Complaint Chief Complaint Assessment/Plan 1. BAck pain, recent back sx/Sepsis, complicated back sx bec of sepsis, FEVERS, SIRS POA, likely infectious no organ dysfcn yet 1. TRansient amnesia, Oddities in behavior, forgetfullness - could be beginning dementia? 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 CT head neg, Check MRI for any acute pathology, Add esr. get neuro. 2. HTN, DM2, dyslipidemia - depression NOS - all chronic stable 3. Polypharmacy - on 22 home meds 4. Geriatric, fall risk 5. FEVERS, LEUKOCYTOSIS, SIRS < POA 6. Hip pain, shoulder pain, back pain 7. Recent multiple non injury falls 8. NSTEMI 9. HYpoxic respi failure with neg dopplers and low prob VQ History of Present Illness History of Present Illness Pt was siting in a chair bedside and conversant. Sitter was in the room and was helping him shave his face. was also in the room and was pleasant. Pt will be getting a PICC line in tomorrow for continuation of IV abx. Neurosurgery would like to obtain another MRI in 4 weeks. Cardiology would like to get a heart cath done, but it waiting until pt is more stable. Pt will need [address] of [address]ef[address] per Dr[address] Mead Plan of care was discussed with pt and his . Will most likely be going to SNU in the next 1-2 days Vitals Vitals Vital Signs Date Time Temp Pulse Resp B/P (MAP) Pulse Ox O2 Delivery O2 Flow Rate FiO2 07/31/17 10:49 98.4 75 17 146/77 (100) 94 Nasal Cannula 3.0 98.4 Physical Exam General: Alert, Oriented X3, Cooperative, No acute distress Heart: Regular rate, Normal S1, Normal S2 Lungs: Clear Abdomen: Normal bowel sounds, Soft Extremities: No clubbing, No cyanosis, No edema Skin: No rashes, No breakdown, No significant lesion Labs LABS Laboratory Tests Test 07/30/17 11:32 07/30/17 16:54 07/30/17 21:10 07/31/17 03:45 Glucose (Fingerstick) 131 mg/dL (70-99) 175 mg/dL (70-99) 161 mg/dL (70-99) White Blood Count 9.5 x10^3/uL (4.0-11.0) Red Blood Count 3.57 x10^6/uL (4.30-5.70) Hemoglobin 10.1 g/dL (13.0-17.5) Hematocrit 29.5 % (39.0-53.0) Mean Corpuscular Volume 83 fL (79-100) Mean Corpuscular Hemoglobin 28 pg (25-35) Mean Corpuscular Hemoglobin Concent 34 g/dL (31-37) Red Cell Distribution Width 14.2 % (11.5-14.5) Platelet Count 256 x10^3/uL (140-400) Neutrophils (%) (Auto) 72 % (31-73) Lymphocytes (%) (Auto) 10 % (24-48) Monocytes (%) (Auto) 13 % (0-9) Eosinophils (%) (Auto) 4 % (0-3) Basophils (%) (Auto) 1 % (0-3) Neutrophils # (Auto) 6.8 x10^3uL (1.8-7.7) Lymphocytes # (Auto) 0.9 x10^3/uL (1.0-4.8) Monocytes # (Auto) 1.3 x10^3/uL (0.0-1.1) Eosinophils # (Auto) 0.4 x10^3/uL (0.0-0.7) Basophils # (Auto) 0.1 x10^3/uL (0.0-0.2) Sodium Level 131 mmol/L (136-145) Potassium Level 3.8 mmol/L (3.5-5.1) Chloride Level 95 mmol/L (98-107) Carbon Dioxide Level 31 mmol/L (21-32) Anion Gap 5 (6-14) Blood Urea Nitrogen 24 mg/dL (8-26) Creatinine 1.2 mg/dL (0.7-1.3) Estimated GFR (Cockcroft-Gault) 59.9 Glucose Level 112 mg/dL (70-99) Calcium Level 8.3 mg/dL (8.5-10.1) Test 07/31/17 07:18 Glucose (Fingerstick) 144 mg/dL (70-99) Review of Systems Review of Systems Pt complains of fatigue Pt complains of hunger Pt complains of memory lapses Assessment and Plan Assessmemt and Plan Assessment/Plan 1. BAck pain, recent back sx/Sepsis, complicated back sx bec of sepsis, FEVERS, SIRS POA, likely infectious no organ dysfcn yet 1. TRansient amnesia, Oddities in behavior, forgetfullness - could be beginning dementia? 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 CT head neg, Check MRI for any acute pathology, Add esr. get neuro. 2. HTN, DM2, dyslipidemia - depression NOS - all chronic stable 3. Polypharmacy - on 22 home meds 4. Geriatric, fall risk 5. FEVERS, LEUKOCYTOSIS, SIRS < POA 6. Hip pain, shoulder pain, back pain 7. Recent multiple non injury falls 8. NSTEMI 9. HYpoxic respi failure with neg dopplers and low prob VQ Plan: PICC line tomorrow 6 weeks cefazolin minimum NS at 75ml/hr started for hyponatremia Recheck labs Cont. to monitor con. abx PT/OT probable SNU in the next few days folow up with neurosurgery and repeat MRI in 4 weeks Heart cath per cardio when stable Problems: Comment Review of Relevant I have reviewed the following items kyler (where applicable) has been applied. Labs Laboratory Tests Test 07/29/17 19:25 07/29/17 22:28 07/30/17 04:25 07/30/17 07:35 O2 Saturation 98 % (92-99) Arterial Blood pH 7.50 (7.35-7.45) Arterial Blood pCO2 at Patient Temp 33 mmHg (35-46) Arterial Blood pO2 at Patient Temp 129 mmHg (65-108) Arterial Blood HCO3 25 mmol/L (21-28) Arterial Blood Base Excess 2 mmol/L (-3-3) FiO2 60.0 Glucose (Fingerstick) 128 mg/dL (70-99) 113 mg/dL (70-99) White Blood Count 11.8 x10^3/uL (4.0-11.0) Red Blood Count 3.68 x10^6/uL (4.30-5.70) Hemoglobin 10.3 g/dL (13.0-17.5) Hematocrit 29.7 % (39.0-53.0) Mean Corpuscular Volume 81 fL (79-100) Mean Corpuscular Hemoglobin 28 pg (25-35) Mean Corpuscular Hemoglobin Concent 35 g/dL (31-37) Red Cell Distribution Width 14.2 % (11.5-14.5) Platelet Count 258 x10^3/uL (140-400) Neutrophils (%) (Auto) 79 % (31-73) Lymphocytes (%) (Auto) 7 % (24-48) Monocytes (%) (Auto) 11 % (0-9) Eosinophils (%) (Auto) 3 % (0-3) Basophils (%) (Auto) 1 % (0-3) Neutrophils # (Auto) 9.4 x10^3uL (1.8-7.7) Lymphocytes # (Auto) 0.8 x10^3/uL (1.0-4.8) Monocytes # (Auto) 1.3 x10^3/uL (0.0-1.1) Eosinophils # (Auto) 0.3 x10^3/uL (0.0-0.7) Basophils # (Auto) 0.1 x10^3/uL (0.0-0.2) Sodium Level 134 mmol/L (136-145) Potassium Level 3.1 mmol/L (3.5-5.1) Chloride Level 96 mmol/L (98-107) Carbon Dioxide Level 31 mmol/L (21-32) Anion Gap 7 (6-14) Blood Urea Nitrogen 26 mg/dL (8-26) Creatinine 1.1 mg/dL (0.7-1.3) Estimated GFR (Cockcroft-Gault) 66.2 Glucose Level 110 mg/dL (70-99) Calcium Level 8.3 mg/dL (8.5-10.1) Test 07/30/17 11:32 07/30/17 16:54 07/30/17 21:10 07/31/17 03:45 Glucose (Fingerstick) 131 mg/dL (70-99) 175 mg/dL (70-99) 161 mg/dL (70-99) White Blood Count 9.5 x10^3/uL (4.0-11.0) Red Blood Count 3.57 x10^6/uL (4.30-5.70) Hemoglobin 10.1 g/dL (13.0-17.5) Hematocrit 29.5 % (39.0-53.0) Mean Corpuscular Volume 83 fL (79-100) Mean Corpuscular Hemoglobin 28 pg (25-35) Mean Corpuscular Hemoglobin Concent 34 g/dL (31-37) Red Cell Distribution Width 14.2 % (11.5-14.5) Platelet Count 256 x10^3/uL (140-400) Neutrophils (%) (Auto) 72 % (31-73) Lymphocytes (%) (Auto) 10 % (24-48) Monocytes (%) (Auto) 13 % (0-9) Eosinophils (%) (Auto) 4 % (0-3) Basophils (%) (Auto) 1 % (0-3) Neutrophils # (Auto) 6.8 x10^3uL (1.8-7.7) Lymphocytes # (Auto) 0.9 x10^3/uL (1.0-4.8) Monocytes # (Auto) 1.3 x10^3/uL (0.0-1.1) Eosinophils # (Auto) 0.4 x10^3/uL (0.0-0.7) Basophils # (Auto) 0.1 x10^3/uL (0.0-0.2) Sodium Level 131 mmol/L (136-145) Potassium Level 3.8 mmol/L (3.5-5.1) Chloride Level 95 mmol/L (98-107) Carbon Dioxide Level 31 mmol/L (21-32) Anion Gap 5 (6-14) Blood Urea Nitrogen 24 mg/dL (8-26) Creatinine 1.2 mg/dL (0.7-1.3) Estimated GFR (Cockcroft-Gault) 59.9 Glucose Level 112 mg/dL (70-99) Calcium Level 8.3 mg/dL (8.5-10.1) Test 07/31/17 07:18 Glucose (Fingerstick) 144 mg/dL (70-99) Laboratory Tests Test 07/30/17 11:32 07/30/17 16:54 07/30/17 21:10 07/31/17 03:45 Glucose (Fingerstick) 131 mg/dL (70-99) 175 mg/dL (70-99) 161 mg/dL (70-99) White Blood Count 9.5 x10^3/uL (4.0-11.0) Red Blood Count 3.57 x10^6/uL (4.30-5.70) Hemoglobin 10.1 g/dL (13.0-17.5) Hematocrit 29.5 % (39.0-53.0) Mean Corpuscular Volume 83 fL (79-100) Mean Corpuscular Hemoglobin 28 pg (25-35) Mean Corpuscular Hemoglobin Concent 34 g/dL (31-37) Red Cell Distribution Width 14.2 % (11.5-14.5) Platelet Count 256 x10^3/uL (140-400) Neutrophils (%) (Auto) 72 % (31-73) Lymphocytes (%) (Auto) 10 % (24-48) Monocytes (%) (Auto) 13 % (0-9) Eosinophils (%) (Auto) 4 % (0-3) Basophils (%) (Auto) 1 % (0-3) Neutrophils # (Auto) 6.8 x10^3uL (1.8-7.7) Lymphocytes # (Auto) 0.9 x10^3/uL (1.0-4.8) Monocytes # (Auto) 1.3 x10^3/uL (0.0-1.1) Eosinophils # (Auto) 0.4 x10^3/uL (0.0-0.7) Basophils # (Auto) 0.1 x10^3/uL (0.0-0.2) Sodium Level 131 mmol/L (136-145) Potassium Level 3.8 mmol/L (3.5-5.1) Chloride Level 95 mmol/L (98-107) Carbon Dioxide Level 31 mmol/L (21-32) Anion Gap 5 (6-14) Blood Urea Nitrogen 24 mg/dL (8-26) Creatinine 1.2 mg/dL (0.7-1.3) Estimated GFR (Cockcroft-Gault) 59.9 Glucose Level 112 mg/dL (70-99) Calcium Level 8.3 mg/dL (8.5-10.1) Test 07/31/17 07:18 Glucose (Fingerstick) 144 mg/dL (70-99) Microbiology 07/28/17 Blood Culture - Preliminary, Resulted NO GROWTH AFTER 3 DAYS Medications Current Medications Citalopram Hydrobromide (CeleXA) 20 mg BID PO Last administered on 07/31/17 08 :45; Start 07/25/17 at 21:00 Docusate Sodium (Colace) 100 mg BID PO Last administered on 07/31/17 08:45; Start 07/25/17 at 21:00 Gabapentin (Neurontin) 100 mg TID PO Last administered on 07/31/17 08:45; Start 07/25/17 at 21:00 Hydrochlorothiazide (Hydrodiuril) 25 mg DAILY PO Last administered on 08:30; Start 07/26/17 at 09:00; Stop 07/27/17 at 14:23; Status DC Acetaminophen/ Hydrocodone Bitart (Lortab 7.5/325) 1 tab PRN Q6HRS PRN PO PAIN Last administered on 07/30/17 16:37; Start 07/25/17 at 19:45; Stop 07/30/17 at 17:09; Status DC Metformin HCl (Glucophage) 1,000 mg DAILY08 PO Last administered on 07/31/17 08:45; Start 07/26/17 at 08:00 Metformin HCl (Glucophage) 500 mg DAILYBFRSUP PO Last administered on 16:39; Start 07/26/17 at 17:00 Methocarbamol (Robaxin) 750 mg TID PO Last administered on 07/26/17 08:38; Start 07/25/17 at 21:00; Stop 07/26/17 at 18:44; Status DC Potassium Chloride (Klor-Con) 10 meq DAILYWBKFT PO Last administered on 08:33; Start 07/26/17 at 08:00; Stop 07/26/17 at 08:55; Status DC Tamsulosin HCl (Flomax) 0.4 mg DAILY PO Last administered on 07/31/17 08:44; Start 07/26/17 at 09:00 Diclofenac Sodium (Voltaren) 75 mg BID PO Last administered on 07/28/17 09:04 ; Start 07/25/17 at 21:00; Stop 07/28/17 at 19:45; Status DC Fish Oil (Fish Oil) 1,000 mg BID PO Last administered on 07/31/17 08:42; Start 07/25/17 at 21:00 Fluticasone Propionate (Flonase) 2 spray DAILY NS Last administered on 09:06; Start 07/26/17 at 09:00 Glimepiride (Amaryl) 0.5 mg DAILY PO Last administered on 07/31/17 08:46; Start 07/26/17 at 09:00 Non-Formulary Medication 1 each BID PO ; Start 07/25/17 at 21:00; Status UNV Losartan Potassium (Cozaar) 100 mg DAILY PO Last administered on 07/31/17 08: 44; Start 07/26/17 at 09:00 Atorvastatin Calcium (Lipitor) 5 mg QHS PO Last administered on 07/30/17 20:26 ; Start 07/25/17 at 21:00 Metoprolol Tartrate (Lopressor) 50 mg BID PO Last administered on 07/31/17 08: 46; Start 07/25/17 at 21:00 Multivitamins (Thera M Plus) 1 tab DAILY PO Last administered on 07/31/17 08: 43; Start 07/26/17 at 09:00 Nifedipine (Procardia Xl) 90 mg DAILY PO Last administered on 07/31/17 08:43; Start 07/26/17 at 09:00 Sodium Chloride 1,000 ml @ 1,000 mls/hr 1X ONCE IV Last administered on 21:56; Start 07/25/17 at 19:45; Stop 07/25/17 at 20:44; Status DC Potassium Chloride (Klor-Con) 40 meq 1X ONCE PO Last administered on 21:41; Start 07/25/17 at 19:45; Stop 07/25/17 at 19:48; Status DC Sodium Chloride 1,000 ml @ 100 mls/hr 1X ONCE IV Last administered on 21:53; Start 07/25/17 at 19:45; Stop 07/26/17 at 05:44; Status DC Insulin Aspart (NovoLOG) 0-7 UNITS TIDWMEALS SQ Last administered on 07/30/17 17:31; Start 07/26/17 at 08:00 Dextrose (Dextrose 50%-Water Syringe) 12.5 gm PRN Q15MIN PRN IV SEE COMMENTS; Start 07/25/17 at 20:00 Info (Do NOT chart on this placeholder) 0.5 each 1X ONCE MC ; Start 07/26/17 at 09:00; Stop 07/26/17 at 09:01; Status UNV Influenza Virus Vaccine Quadrival (Fluarix Quad [id number] Syringe) 0.5 ml ONCE ONCE VAX IM Last administered on 07/28/17 09:31; Start 07/26/17 at 09:00; Stop 07/26/17 at 09:01; Status DC Albuterol/ Ipratropium (Duoneb) 3 ml RTQID NEB Last administered on 07/31/17 10:49; Start 07/26/17 at 08:00 Albuterol Sulfate (Ventolin Neb Soln) 2.5 mg PRN Q2HRS PRN NEB SHORTNESS OF BREATH Last administered on 07/26/17 02:00; Start 07/26/17 at 01:30 Enoxaparin Sodium (Lovenox 100mg Syringe) 100 mg 1X ONCE SQ Last administered on 07/26/17 02:08; Start 07/26/17 at 02:00; Stop 07/26/17 at 02:04; Status DC Heparin Sodium/ Dextrose 500 ml @ 0 mls/hr CONT PRN IV SEE I/O RECORD Last administered on 07/26/17 03:42; Start 07/26/17 at 03:30; Stop 07/28/17 at 08:16 ; Status DC Heparin Sodium (Porcine) (Heparin Sodium) 2,450 unit PRN Q6HRS PRN IV FOR UFH LEVEL LESS THAN 0.2; Start 07/26/17 at 03:30; Stop 07/28/17 at 08:16; Status DC Info (Anti-Coagulation Monitoring By Pharmacy) 1 each PRN DAILY PRN MC SEE COMMENTS Last administered on 07/27/17 10:04; Start 07/26/17 at 03:30; Stop at 08:16; Status DC Vancomycin HCl (Vanco Per Pharmacy) 1 each PRN DAILY PRN MC SEE COMMENTS Last administered on 07/28/17 00:18; Start 07/26/17 at 08:15; Stop 07/28/17 at 12:53 ; Status DC Meropenem 1 gm/ Sodium Chloride 100 ml @ 200 mls/hr Q8HRS IV Last administered on 07/29/17 05:54; Start 07/26/17 at 08:30; Stop 07/29/17 at 08:23 ; Status DC Vancomycin HCl 2 gm/Sodium Chloride 500 ml @ 250 mls/hr 1X ONCE IV Last administered on 07/26/17 09:27; Start 07/26/17 at 08:30; Stop 07/26/17 at 10:29 ; Status DC Potassium Chloride (Klor-Con) 40 meq DAILYWBKFT PO Last administered on 08:45; Start 07/26/17 at 09:30 Vancomycin HCl 1.25 gm/Sodium Chloride 250 ml @ 167 mls/hr Q12H IV Last administered on 07/27/17 21:37; Start 07/26/17 at 22:00; Stop 07/28/17 at 01:00 ; Status DC Vancomycin HCl 1 each 1X ONCE MC Last administered on 07/27/17 21:30; Start 07/27/17 at 21:30; Stop 07/27/17 at 21:31; Status DC Furosemide (Lasix) 40 mg 1X ONCE IVP Last administered on 07/26/17 11:47; Start 07/26/17 at 11:30; Stop 07/26/17 at 11:31; Status DC Gadobutrol (Gadavist) 10 mmol 1X ONCE IV Last administered on 07/26/17 16:19 ; Start 07/26/17 at 16:15; Stop 07/26/17 at 16:16; Status DC Morphine Sulfate 3 mg PRN Q3HRS PRN IV PAIN Last administered on 07/29/17 01: 45; Start 07/27/17 at 08:30 Morphine Sulfate 4 mg PRN Q3HRS PRN IV PAIN; Start 07/27/17 at 08:30 Morphine Sulfate 5 mg PRN Q3HRS PRN IV PAIN; Start 07/27/17 at 08:45 Gadobutrol (Gadavist) 9 mmol 1X ONCE IV Last administered on 07/27/17 10:37; Start 07/27/17 at 10:15; Stop 07/27/17 at 10:16; Status DC Furosemide (Lasix) 40 mg 1X ONCE IVP Last administered on 07/27/17 14:12; Start 07/27/17 at 14:00; Stop 07/27/17 at 14:01; Status DC Vancomycin HCl 1.5 gm/Sodium Chloride 500 ml @ 250 mls/hr Q24H IV ; Start 07/28 at 22:00; Stop 07/28/17 at 22:00; Status DC Vancomycin HCl 1 each 1X ONCE MC ; Start 07/30/17 at 21:30; Stop 07/30/17 at 21 :30; Status DC Acetaminophen (Tylenol) 650 mg PRN Q6HRS PRN PO FEVER > 100.5'F Last administered on 07/30/17 12:11; Start 07/28/17 at 05:30 Tamsulosin HCl (Flomax) 0.4 mg QHS PO ; Start 07/28/17 at 21:00; Status UNV Cefazolin Sodium/ Dextrose 50 ml @ 100 mls/hr Q8HRS IV Last administered on 06:20; Start 07/29/17 at 08:30 Polyethylene Glycol (miraLAX PACKET) 17 gm DAILY PO Last administered on 08:46; Start 07/29/17 at 09:00 Lorazepam (Ativan) 1 mg PRN Q4HRS PRN IV ANXIETY / AGITATION; Start 07/29/17 at 12:15 Furosemide (Lasix) 40 mg 1X ONCE IVP Last administered on 07/29/17 20:03; Start 07/29/17 at 19:45; Stop 07/29/17 at 19:46; Status DC Potassium Chloride (Klor-Con) 40 meq 1X ONCE PO Last administered on 12:10; Start 07/30/17 at 09:00; Stop 07/30/17 at 09:01; Status DC Magnesium Citrate (Citroma) 296 ml PRN 1X PRN PO CONSTIPATION Last administered on 07/31/17 09:06; Start 07/30/17 at 11:15 Furosemide (Lasix) 40 mg 1X ONCE IVP Last administered on 07/30/17 14:16; Start 07/30/17 at 12:30; Stop 07/30/17 at 12:31; Status DC Acetaminophen/ Hydrocodone Bitart (Lortab 7.5/325) 1 tab PRN Q4HRS PRN PO PAIN Last administered on 10/5/17at 08:44; Start 07/30/17 at 17:15 Active Scripts Active Colace (Docusate Sodium) 100 Mg Capsule 100 Mg PO BID 60 Days Methocarbamol 750 Mg Tablet 750 Mg PO TID 60 Days Hydrocodone-Apap 7.5-325 (Hydrocodone Bit/Acetaminophen) 1 Each Tablet 1 Tab PO PRN Q6HRS PRN 60 Days Reported Tamsulosin Hcl 0.4 Mg Cap.er.24h 0.4 Mg PO DAILY Metformin Hcl 500 Mg Tablet 500 Mg PO DAILYBFRSUP Gabapentin 100 Mg Capsule 100 Mg PO TID Lovastatin 20 Mg Tablet 1 Tab PO DAILY Hivtxcfrwr-Cdmwzjqlymg-Mss Tab (Gluc/Jonah-Msm#2/C/D3/Vidal/Born) 1 Each Tablet 1 Each PO BID Glimepiride 1 Mg Tablet 0.5 Tab PO DAILY Losartan Potassium 100 Mg Tablet 100 Mg PO DAILY Diclofenac Sodium 75 Mg Tablet.dr 75 Mg PO BID Nitrostat (Nitroglycerin) 0.4 Mg Tab.subl 0.4 Mg SL PRN Viagra (Sildenafil Citrate) 100 Mg Tablet 100 Mg PO PRN Potassium Chloride 10 Meq Tablet.er 10 Meq PO DAILY Metformin Hcl 1,000 Mg Tablet 1,000 Mg PO DAILY08 Hydrochlorothiazide Tablet (Hydrochlorothiazide) 25 Mg Tablet 25 Mg PO DAILY Metoprolol Tartrate 100 Mg Tablet 50 Mg PO BID Flovent 50MCG Diskus (Fluticasone Propionate) 50 Mcg Disk.w.dev 50 Mcg IH DAILY Citalopram Hbr (Citalopram Hydrobromide) 20 Mg Tablet 20 Mg PO BID Nifedipine Er (Nifedipine) 90 Mg Tab.er.24 90 Mg PO DAILY Multivitamins (Multivitamin) 1 Each Tablet 1 Each PO DAILY Fish Oil 1,200 Mg Fish Oil (Fish Oil/Dha/Epa) 1 Each Capsule 1 Each PO BID Vitals/I & O Vital Sign - Last 24 Hours 07/30/17 07/30/17 07/30/17 07/30/17 11:34 15:55 16:19 19:44 Temp 98.6 98.7 98.6 98.7 Pulse 90 73 Resp 20 16 B/P (MAP) 115/64 (81) 106/66 (79) Pulse Ox 86 93 94 92 O2 Delivery Nasal Cannula Nasal Cannula Nasal Cannula Nasal Cannula O2 Flow Rate 2.0 2.0 2.0 2.0 07/30/17 07/30/17 07/30/17 07/30/17 20:10 20:11 20:27 23:59 Temp 98.6 98.6 Pulse 73 74 Resp 16 B/P (MAP) 106/66 112/51 (71) Pulse Ox 93 90 O2 Delivery Nasal Cannula Nasal Cannula Nasal Cannula O2 Flow Rate 2.0 2.0 2.0 07/31/17 07/31/17 07/31/17 07/31/17 03:10 06:50 07:14 08:43 Temp 99.1 98.4 99.1 98.4 Pulse 73 85 85 Resp 16 18 B/P (MAP) 115/62 (79) 150/82 (104) 150/82 Pulse Ox 90 91 91 O2 Delivery Nasal Cannula Nasal Cannula Nasal Cannula O2 Flow Rate 3.0 2.0 3.0 07/31/17 07/31/17 07/31/17 07/31/17 08:44 08:44 08:46 10:49 Temp 98.4 98.4 Pulse 85 85 75 Resp B/P (MAP) 150/82 150/82 146/77 (100) Pulse Ox 92 94 O2 Delivery Nasal Cannula Nasal Cannula O2 Flow Rate 2.0 3.0 Intake and Output 07/31/17 07/31/17 08/01/17 15:00 23:00 07:00 Intake Total 480 ml Output Total 600 ml Balance -120 ml LISBETH OLIVA K III DO Jul 31, 2017 11:19
--- NOTE | 2017-07-31 11:30 | PDOC ---
PULMONARY PROGRESS NOTES Subjective feels better today Vitals Vital Signs Date Time Temp Pulse Resp B/P (MAP) Pulse Ox O2 Delivery O2 Flow Rate FiO2 07/31/17 10:49 98.4 75 17 146/77 (100) 94 Nasal Cannula 3.0 98.4 General: Alert, No acute distress Lungs: Clear Cardiovascular: S1, S2 Abdomen: Soft Extremities: No Edema Skin: Warm Labs Laboratory Tests Test 07/29/17 19:25 07/29/17 22:28 07/30/17 04:25 07/30/17 07:35 O2 Saturation 98 % (92-99) Arterial Blood pH 7.50 (7.35-7.45) Arterial Blood pCO2 at Patient Temp 33 mmHg (35-46) Arterial Blood pO2 at Patient Temp 129 mmHg (65-108) Arterial Blood HCO3 25 mmol/L (21-28) Arterial Blood Base Excess 2 mmol/L (-3-3) FiO2 60.0 Glucose (Fingerstick) 128 mg/dL (70-99) 113 mg/dL (70-99) White Blood Count 11.8 x10^3/uL (4.0-11.0) Red Blood Count 3.68 x10^6/uL (4.30-5.70) Hemoglobin 10.3 g/dL (13.0-17.5) Hematocrit 29.7 % (39.0-53.0) Mean Corpuscular Volume 81 fL (79-100) Mean Corpuscular Hemoglobin 28 pg (25-35) Mean Corpuscular Hemoglobin Concent 35 g/dL (31-37) Red Cell Distribution Width 14.2 % (11.5-14.5) Platelet Count 258 x10^3/uL (140-400) Neutrophils (%) (Auto) 79 % (31-73) Lymphocytes (%) (Auto) 7 % (24-48) Monocytes (%) (Auto) 11 % (0-9) Eosinophils (%) (Auto) 3 % (0-3) Basophils (%) (Auto) 1 % (0-3) Neutrophils # (Auto) 9.4 x10^3uL (1.8-7.7) Lymphocytes # (Auto) 0.8 x10^3/uL (1.0-4.8) Monocytes # (Auto) 1.3 x10^3/uL (0.0-1.1) Eosinophils # (Auto) 0.3 x10^3/uL (0.0-0.7) Basophils # (Auto) 0.1 x10^3/uL (0.0-0.2) Sodium Level 134 mmol/L (136-145) Potassium Level 3.1 mmol/L (3.5-5.1) Chloride Level 96 mmol/L (98-107) Carbon Dioxide Level 31 mmol/L (21-32) Anion Gap 7 (6-14) Blood Urea Nitrogen 26 mg/dL (8-26) Creatinine 1.1 mg/dL (0.7-1.3) Estimated GFR (Cockcroft-Gault) 66.2 Glucose Level 110 mg/dL (70-99) Calcium Level 8.3 mg/dL (8.5-10.1) Test 07/30/17 11:32 07/30/17 16:54 07/30/17 21:10 07/31/17 03:45 Glucose (Fingerstick) 131 mg/dL (70-99) 175 mg/dL (70-99) 161 mg/dL (70-99) White Blood Count 9.5 x10^3/uL (4.0-11.0) Red Blood Count 3.57 x10^6/uL (4.30-5.70) Hemoglobin 10.1 g/dL (13.0-17.5) Hematocrit 29.5 % (39.0-53.0) Mean Corpuscular Volume 83 fL (79-100) Mean Corpuscular Hemoglobin 28 pg (25-35) Mean Corpuscular Hemoglobin Concent 34 g/dL (31-37) Red Cell Distribution Width 14.2 % (11.5-14.5) Platelet Count 256 x10^3/uL (140-400) Neutrophils (%) (Auto) 72 % (31-73) Lymphocytes (%) (Auto) 10 % (24-48) Monocytes (%) (Auto) 13 % (0-9) Eosinophils (%) (Auto) 4 % (0-3) Basophils (%) (Auto) 1 % (0-3) Neutrophils # (Auto) 6.8 x10^3uL (1.8-7.7) Lymphocytes # (Auto) 0.9 x10^3/uL (1.0-4.8) Monocytes # (Auto) 1.3 x10^3/uL (0.0-1.1) Eosinophils # (Auto) 0.4 x10^3/uL (0.0-0.7) Basophils # (Auto) 0.1 x10^3/uL (0.0-0.2) Sodium Level 131 mmol/L (136-145) Potassium Level 3.8 mmol/L (3.5-5.1) Chloride Level 95 mmol/L (98-107) Carbon Dioxide Level 31 mmol/L (21-32) Anion Gap 5 (6-14) Blood Urea Nitrogen 24 mg/dL (8-26) Creatinine 1.2 mg/dL (0.7-1.3) Estimated GFR (Cockcroft-Gault) 59.9 Glucose Level 112 mg/dL (70-99) Calcium Level 8.3 mg/dL (8.5-10.1) Test 07/31/17 07:18 Glucose (Fingerstick) 144 mg/dL (70-99) Laboratory Tests Test 07/30/17 11:32 07/30/17 16:54 07/30/17 21:10 07/31/17 03:45 Glucose (Fingerstick) 131 mg/dL (70-99) 175 mg/dL (70-99) 161 mg/dL (70-99) White Blood Count 9.5 x10^3/uL (4.0-11.0) Red Blood Count 3.57 x10^6/uL (4.30-5.70) Hemoglobin 10.1 g/dL (13.0-17.5) Hematocrit 29.5 % (39.0-53.0) Mean Corpuscular Volume 83 fL (79-100) Mean Corpuscular Hemoglobin 28 pg (25-35) Mean Corpuscular Hemoglobin Concent 34 g/dL (31-37) Red Cell Distribution Width 14.2 % (11.5-14.5) Platelet Count 256 x10^3/uL (140-400) Neutrophils (%) (Auto) 72 % (31-73) Lymphocytes (%) (Auto) 10 % (24-48) Monocytes (%) (Auto) 13 % (0-9) Eosinophils (%) (Auto) 4 % (0-3) Basophils (%) (Auto) 1 % (0-3) Neutrophils # (Auto) 6.8 x10^3uL (1.8-7.7) Lymphocytes # (Auto) 0.9 x10^3/uL (1.0-4.8) Monocytes # (Auto) 1.3 x10^3/uL (0.0-1.1) Eosinophils # (Auto) 0.4 x10^3/uL (0.0-0.7) Basophils # (Auto) 0.1 x10^3/uL (0.0-0.2) Sodium Level 131 mmol/L (136-145) Potassium Level 3.8 mmol/L (3.5-5.1) Chloride Level 95 mmol/L (98-107) Carbon Dioxide Level 31 mmol/L (21-32) Anion Gap 5 (6-14) Blood Urea Nitrogen 24 mg/dL (8-26) Creatinine 1.2 mg/dL (0.7-1.3) Estimated GFR (Cockcroft-Gault) 59.9 Glucose Level 112 mg/dL (70-99) Calcium Level 8.3 mg/dL (8.5-10.1) Test 07/31/17 07:18 Glucose (Fingerstick) 144 mg/dL (70-99) Medications Active Scripts Medications Dose Route/Sig Max Daily Dose Days Date Category Tamsulosin Hcl 0.4 Mg Cap.er.24h 0.4 Mg PO DAILY 03/31/17 Reported Metformin Hcl 500 Mg Tablet 500 Mg PO DAILYBFRSUP 03/31/17 Reported Colace (Docusate Sodium) 100 Mg Capsule 100 Mg PO BID 60 03/08/17 Rx Methocarbamol 750 Mg Tablet 750 Mg PO TID 60 03/08/17 Rx Hydrocodone-Apap 7.5-325 (Hydrocodone Bit/Acetaminophen) 1 Each Tablet 1 Tab PO PRN Q6HRS PRN 60 03/08/17 Rx Gabapentin 100 Mg Capsule 100 Mg PO TID 01/27/17 Reported Lovastatin 20 Mg Tablet 1 Tab PO DAILY 01/27/17 Reported Uhfjumwqih-Wglzbfzfzlu-Fms Tab (Gluc/Jonah-Msm#2/C/D3/Vidal/Born) 1 Each Tablet 1 Each PO BID 07/17/15 Reported Glimepiride 1 Mg Tablet 0.5 Tab PO DAILY 07/17/15 Reported Losartan Potassium 100 Mg Tablet 100 Mg PO DAILY 01/10/14 Reported Diclofenac Sodium 75 Mg Tablet.dr 75 Mg PO BID 01/10/14 Reported Nitrostat (Nitroglycerin) 0.4 Mg Tab.subl 0.4 Mg SL PRN 01/10/14 Reported Viagra (Sildenafil Citrate) 100 Mg Tablet 100 Mg PO PRN 01/10/14 Reported Potassium Chloride 10 Meq Tablet.er 10 Meq PO DAILY 01/10/14 Reported Metformin Hcl 1,000 Mg Tablet 1,000 Mg PO DAILY08 01/10/14 Reported Hydrochlorothiazide Tablet (Hydrochlorothiazide) 25 Mg Tablet 25 Mg PO DAILY 01/10/14 Reported Metoprolol Tartrate 100 Mg Tablet 50 Mg PO BID 01/10/14 Reported Flovent 50MCG Diskus (Fluticasone Propionate) 50 Mcg Disk.w.dev 50 Mcg IH DAILY 01/10/14 Reported Citalopram Hbr (Citalopram Hydrobromide) 20 Mg Tablet 20 Mg PO BID 01/10/14 Reported Nifedipine Er (Nifedipine) 90 Mg Tab.er.24 90 Mg PO DAILY 01/10/14 Reported Multivitamins (Multivitamin) 1 Each Tablet 1 Each PO DAILY 01/10/14 Reported Fish Oil 1,200 Mg Fish Oil (Fish Oil/Dha/Epa) 1 Each Capsule 1 Each PO BID 01/10/14 Reported Impression . 1. Acute hypoxic respiratory failure secondary ACUTE CHF/ cxr 07/29 with CHF 2. Acute non-ST myocardial infarction with markedly elevated troponin levels. 3. Acute encephalopathy METABOLIC/TOXIC?/ resolved 4. Increased CPK secondary to rhabdomyolysis. 5. Syncope secondary to myocardial infarction. 6. No significant history of tobacco use. 7. Leukocytosis. The patient had recent back surgery and had staph infection. now with Staph bacteremia 8. No evidence of PE by VQ Plan . EXTRA IV LASIX GIVEN 07/30. FEELS BETTER CXR F/U POST DIURESIS TODAY PT HAS HAD A SLEEP STUDY IN PAST ,NO ESPERANZA ANITBX PER ID NEEDS PT SPOKE WITH KIM HAJI MD Jul 31, 2017 11:30
--- NOTE | 2017-07-31 12:28 | PDOC ---
PROGRESS NOTES Subjective Subjective No new complaints. Objective Objective Vital Signs Date Time Temp Pulse Resp B/P (MAP) Pulse Ox O2 Delivery O2 Flow Rate FiO2 07/31/17 10:49 98.4 75 17 146/77 (100) 94 Nasal Cannula 3.0 98.4 Intake and Output 08/01/17 06:59 Intake Total 480 ml Output Total 600 ml Balance -120 ml Intake Oral 480 ml Output Urine Total 600 ml Physical Exam Physical Exam He is more awake and talking but some cognitive deficits persist.he did walk for 250' with roller walker with physical therapy. Plan Plan of Care Suggest SNF for continued IV antibiotics as ID thinks he need at least 6 weeks of IV antibiotics as he is walking and if he goes to acute rehab unit he could not stay there for more than a few days and then have to go to SNF for continued IV antibiotics. Comment Review of Relevant I have reviewed the following items kyler (where applicable) has been applied. Labs Laboratory Tests Test 07/29/17 19:25 07/29/17 22:28 07/30/17 04:25 07/30/17 07:35 O2 Saturation 98 % (92-99) Arterial Blood pH 7.50 (7.35-7.45) Arterial Blood pCO2 at Patient Temp 33 mmHg (35-46) Arterial Blood pO2 at Patient Temp 129 mmHg (65-108) Arterial Blood HCO3 25 mmol/L (21-28) Arterial Blood Base Excess 2 mmol/L (-3-3) FiO2 60.0 Glucose (Fingerstick) 128 mg/dL (70-99) 113 mg/dL (70-99) White Blood Count 11.8 x10^3/uL (4.0-11.0) Red Blood Count 3.68 x10^6/uL (4.30-5.70) Hemoglobin 10.3 g/dL (13.0-17.5) Hematocrit 29.7 % (39.0-53.0) Mean Corpuscular Volume 81 fL (79-100) Mean Corpuscular Hemoglobin 28 pg (25-35) Mean Corpuscular Hemoglobin Concent 35 g/dL (31-37) Red Cell Distribution Width 14.2 % (11.5-14.5) Platelet Count 258 x10^3/uL (140-400) Neutrophils (%) (Auto) 79 % (31-73) Lymphocytes (%) (Auto) 7 % (24-48) Monocytes (%) (Auto) 11 % (0-9) Eosinophils (%) (Auto) 3 % (0-3) Basophils (%) (Auto) 1 % (0-3) Neutrophils # (Auto) 9.4 x10^3uL (1.8-7.7) Lymphocytes # (Auto) 0.8 x10^3/uL (1.0-4.8) Monocytes # (Auto) 1.3 x10^3/uL (0.0-1.1) Eosinophils # (Auto) 0.3 x10^3/uL (0.0-0.7) Basophils # (Auto) 0.1 x10^3/uL (0.0-0.2) Sodium Level 134 mmol/L (136-145) Potassium Level 3.1 mmol/L (3.5-5.1) Chloride Level 96 mmol/L (98-107) Carbon Dioxide Level 31 mmol/L (21-32) Anion Gap 7 (6-14) Blood Urea Nitrogen 26 mg/dL (8-26) Creatinine 1.1 mg/dL (0.7-1.3) Estimated GFR (Cockcroft-Gault) 66.2 Glucose Level 110 mg/dL (70-99) Calcium Level 8.3 mg/dL (8.5-10.1) Test 07/30/17 11:32 07/30/17 16:54 07/30/17 21:10 07/31/17 03:45 Glucose (Fingerstick) 131 mg/dL (70-99) 175 mg/dL (70-99) 161 mg/dL (70-99) White Blood Count 9.5 x10^3/uL (4.0-11.0) Red Blood Count 3.57 x10^6/uL (4.30-5.70) Hemoglobin 10.1 g/dL (13.0-17.5) Hematocrit 29.5 % (39.0-53.0) Mean Corpuscular Volume 83 fL (79-100) Mean Corpuscular Hemoglobin 28 pg (25-35) Mean Corpuscular Hemoglobin Concent 34 g/dL (31-37) Red Cell Distribution Width 14.2 % (11.5-14.5) Platelet Count 256 x10^3/uL (140-400) Neutrophils (%) (Auto) 72 % (31-73) Lymphocytes (%) (Auto) 10 % (24-48) Monocytes (%) (Auto) 13 % (0-9) Eosinophils (%) (Auto) 4 % (0-3) Basophils (%) (Auto) 1 % (0-3) Neutrophils # (Auto) 6.8 x10^3uL (1.8-7.7) Lymphocytes # (Auto) 0.9 x10^3/uL (1.0-4.8) Monocytes # (Auto) 1.3 x10^3/uL (0.0-1.1) Eosinophils # (Auto) 0.4 x10^3/uL (0.0-0.7) Basophils # (Auto) 0.1 x10^3/uL (0.0-0.2) Sodium Level 131 mmol/L (136-145) Potassium Level 3.8 mmol/L (3.5-5.1) Chloride Level 95 mmol/L (98-107) Carbon Dioxide Level 31 mmol/L (21-32) Anion Gap 5 (6-14) Blood Urea Nitrogen 24 mg/dL (8-26) Creatinine 1.2 mg/dL (0.7-1.3) Estimated GFR (Cockcroft-Gault) 59.9 Glucose Level 112 mg/dL (70-99) Calcium Level 8.3 mg/dL (8.5-10.1) Test 07/31/17 07:18 07/31/17 11:34 Glucose (Fingerstick) 144 mg/dL (70-99) 121 mg/dL (70-99) Laboratory Tests Test 07/30/17 16:54 07/30/17 21:10 07/31/17 03:45 07/31/17 07:18 Glucose (Fingerstick) 175 mg/dL (70-99) 161 mg/dL (70-99) 144 mg/dL (70-99) White Blood Count 9.5 x10^3/uL (4.0-11.0) Red Blood Count 3.57 x10^6/uL (4.30-5.70) Hemoglobin 10.1 g/dL (13.0-17.5) Hematocrit 29.5 % (39.0-53.0) Mean Corpuscular Volume 83 fL (79-100) Mean Corpuscular Hemoglobin 28 pg (25-35) Mean Corpuscular Hemoglobin Concent 34 g/dL (31-37) Red Cell Distribution Width 14.2 % (11.5-14.5) Platelet Count 256 x10^3/uL (140-400) Neutrophils (%) (Auto) 72 % (31-73) Lymphocytes (%) (Auto) 10 % (24-48) Monocytes (%) (Auto) 13 % (0-9) Eosinophils (%) (Auto) 4 % (0-3) Basophils (%) (Auto) 1 % (0-3) Neutrophils # (Auto) 6.8 x10^3uL (1.8-7.7) Lymphocytes # (Auto) 0.9 x10^3/uL (1.0-4.8) Monocytes # (Auto) 1.3 x10^3/uL (0.0-1.1) Eosinophils # (Auto) 0.4 x10^3/uL (0.0-0.7) Basophils # (Auto) 0.1 x10^3/uL (0.0-0.2) Sodium Level 131 mmol/L (136-145) Potassium Level 3.8 mmol/L (3.5-5.1) Chloride Level 95 mmol/L (98-107) Carbon Dioxide Level 31 mmol/L (21-32) Anion Gap 5 (6-14) Blood Urea Nitrogen 24 mg/dL (8-26) Creatinine 1.2 mg/dL (0.7-1.3) Estimated GFR (Cockcroft-Gault) 59.9 Glucose Level 112 mg/dL (70-99) Calcium Level 8.3 mg/dL (8.5-10.1) Test 07/31/17 11:34 Glucose (Fingerstick) 121 mg/dL (70-99) Microbiology 07/28/17 Blood Culture - Preliminary, Resulted NO GROWTH AFTER 3 DAYS Medications Current Medications Citalopram Hydrobromide (CeleXA) 20 mg BID PO Last administered on 07/31/17 08 :45; Start 07/25/17 at 21:00 Docusate Sodium (Colace) 100 mg BID PO Last administered on 07/31/17 08:45; Start 07/25/17 at 21:00 Gabapentin (Neurontin) 100 mg TID PO Last administered on 07/31/17 08:45; Start 07/25/17 at 21:00 Hydrochlorothiazide (Hydrodiuril) 25 mg DAILY PO Last administered on 08:30; Start 07/26/17 at 09:00; Stop 07/27/17 at 14:23; Status DC Acetaminophen/ Hydrocodone Bitart (Lortab 7.5/325) 1 tab PRN Q6HRS PRN PO PAIN Last administered on 07/30/17 16:37; Start 07/25/17 at 19:45; Stop 07/30/17 at 17:09; Status DC Metformin HCl (Glucophage) 1,000 mg DAILY08 PO Last administered on 07/31/17 08:45; Start 07/26/17 at 08:00 Metformin HCl (Glucophage) 500 mg DAILYBFRSUP PO Last administered on 16:39; Start 07/26/17 at 17:00 Methocarbamol (Robaxin) 750 mg TID PO Last administered on 07/26/17 08:38; Start 07/25/17 at 21:00; Stop 07/26/17 at 18:44; Status DC Potassium Chloride (Klor-Con) 10 meq DAILYWBKFT PO Last administered on 08:33; Start 07/26/17 at 08:00; Stop 07/26/17 at 08:55; Status DC Tamsulosin HCl (Flomax) 0.4 mg DAILY PO Last administered on 07/31/17 08:44; Start 07/26/17 at 09:00 Diclofenac Sodium (Voltaren) 75 mg BID PO Last administered on 07/28/17 09:04 ; Start 07/25/17 at 21:00; Stop 07/28/17 at 19:45; Status DC Fish Oil (Fish Oil) 1,000 mg BID PO Last administered on 07/31/17 08:42; Start 07/25/17 at 21:00 Fluticasone Propionate (Flonase) 2 spray DAILY NS Last administered on 09:06; Start 07/26/17 at 09:00 Glimepiride (Amaryl) 0.5 mg DAILY PO Last administered on 07/31/17 08:46; Start 07/26/17 at 09:00 Non-Formulary Medication 1 each BID PO ; Start 07/25/17 at 21:00; Status UNV Losartan Potassium (Cozaar) 100 mg DAILY PO Last administered on 07/31/17 08: 44; Start 07/26/17 at 09:00 Atorvastatin Calcium (Lipitor) 5 mg QHS PO Last administered on 07/30/17 20:26 ; Start 07/25/17 at 21:00 Metoprolol Tartrate (Lopressor) 50 mg BID PO Last administered on 07/31/17 08: 46; Start 07/25/17 at 21:00 Multivitamins (Thera M Plus) 1 tab DAILY PO Last administered on 07/31/17 08: 43; Start 07/26/17 at 09:00 Nifedipine (Procardia Xl) 90 mg DAILY PO Last administered on 07/31/17 08:43; Start 07/26/17 at 09:00 Sodium Chloride 1,000 ml @ 1,000 mls/hr 1X ONCE IV Last administered on 21:56; Start 07/25/17 at 19:45; Stop 07/25/17 at 20:44; Status DC Potassium Chloride (Klor-Con) 40 meq 1X ONCE PO Last administered on 21:41; Start 07/25/17 at 19:45; Stop 07/25/17 at 19:48; Status DC Sodium Chloride 1,000 ml @ 100 mls/hr 1X ONCE IV Last administered on 21:53; Start 07/25/17 at 19:45; Stop 07/26/17 at 05:44; Status DC Insulin Aspart (NovoLOG) 0-7 UNITS TIDWMEALS SQ Last administered on 07/30/17 17:31; Start 07/26/17 at 08:00 Dextrose (Dextrose 50%-Water Syringe) 12.5 gm PRN Q15MIN PRN IV SEE COMMENTS; Start 07/25/17 at 20:00 Info (Do NOT chart on this placeholder) 0.5 each 1X ONCE MC ; Start 07/26/17 at 09:00; Stop 07/26/17 at 09:01; Status UNV Influenza Virus Vaccine Quadrival (Fluarix Quad 1758-1608 Syringe) 0.5 ml ONCE ONCE VAX IM Last administered on 07/28/17 09:31; Start 07/26/17 at 09:00; Stop 07/26/17 at 09:01; Status DC Albuterol/ Ipratropium (Duoneb) 3 ml RTQID NEB Last administered on 07/31/17 10:49; Start 07/26/17 at 08:00 Albuterol Sulfate (Ventolin Neb Soln) 2.5 mg PRN Q2HRS PRN NEB SHORTNESS OF BREATH Last administered on 07/26/17 02:00; Start 07/26/17 at 01:30 Enoxaparin Sodium (Lovenox 100mg Syringe) 100 mg 1X ONCE SQ Last administered on 07/26/17 02:08; Start 07/26/17 at 02:00; Stop 07/26/17 at 02:04; Status DC Heparin Sodium/ Dextrose 500 ml @ 0 mls/hr CONT PRN IV SEE I/O RECORD Last administered on 07/26/17 03:42; Start 07/26/17 at 03:30; Stop 07/28/17 at 08:16 ; Status DC Heparin Sodium (Porcine) (Heparin Sodium) 2,450 unit PRN Q6HRS PRN IV FOR UFH LEVEL LESS THAN 0.2; Start 07/26/17 at 03:30; Stop 07/28/17 at 08:16; Status DC Info (Anti-Coagulation Monitoring By Pharmacy) 1 each PRN DAILY PRN MC SEE COMMENTS Last administered on 07/27/17 10:04; Start 07/26/17 at 03:30; Stop at 08:16; Status DC Vancomycin HCl (Vanco Per Pharmacy) 1 each PRN DAILY PRN MC SEE COMMENTS Last administered on 07/28/17 00:18; Start 07/26/17 at 08:15; Stop 07/28/17 at 12:53 ; Status DC Meropenem 1 gm/ Sodium Chloride 100 ml @ 200 mls/hr Q8HRS IV Last administered on 07/29/17 05:54; Start 07/26/17 at 08:30; Stop 07/29/17 at 08:23 ; Status DC Vancomycin HCl 2 gm/Sodium Chloride 500 ml @ 250 mls/hr 1X ONCE IV Last administered on 07/26/17 09:27; Start 07/26/17 at 08:30; Stop 07/26/17 at 10:29 ; Status DC Potassium Chloride (Klor-Con) 40 meq DAILYWBKFT PO Last administered on 08:45; Start 07/26/17 at 09:30 Vancomycin HCl 1.25 gm/Sodium Chloride 250 ml @ 167 mls/hr Q12H IV Last administered on 07/27/17 21:37; Start 07/26/17 at 22:00; Stop 07/28/17 at 01:00 ; Status DC Vancomycin HCl 1 each 1X ONCE MC Last administered on 07/27/17 21:30; Start 07/27/17 at 21:30; Stop 07/27/17 at 21:31; Status DC Furosemide (Lasix) 40 mg 1X ONCE IVP Last administered on 07/26/17 11:47; Start 07/26/17 at 11:30; Stop 07/26/17 at 11:31; Status DC Gadobutrol (Gadavist) 10 mmol 1X ONCE IV Last administered on 07/26/17 16:19 ; Start 07/26/17 at 16:15; Stop 07/26/17 at 16:16; Status DC Morphine Sulfate 3 mg PRN Q3HRS PRN IV PAIN Last administered on 07/29/17 01: 45; Start 07/27/17 at 08:30 Morphine Sulfate 4 mg PRN Q3HRS PRN IV PAIN; Start 07/27/17 at 08:30 Morphine Sulfate 5 mg PRN Q3HRS PRN IV PAIN; Start 07/27/17 at 08:45 Gadobutrol (Gadavist) 9 mmol 1X ONCE IV Last administered on 07/27/17 10:37; Start 07/27/17 at 10:15; Stop 07/27/17 at 10:16; Status DC Furosemide (Lasix) 40 mg 1X ONCE IVP Last administered on 07/27/17 14:12; Start 07/27/17 at 14:00; Stop 07/27/17 at 14:01; Status DC Vancomycin HCl 1.5 gm/Sodium Chloride 500 ml @ 250 mls/hr Q24H IV ; Start 07/28 at 22:00; Stop 07/28/17 at 22:00; Status DC Vancomycin HCl 1 each 1X ONCE MC ; Start 07/30/17 at 21:30; Stop 07/30/17 at 21 :30; Status DC Acetaminophen (Tylenol) 650 mg PRN Q6HRS PRN PO FEVER > 100.5'F Last administered on 07/30/17 12:11; Start 07/28/17 at 05:30 Tamsulosin HCl (Flomax) 0.4 mg QHS PO ; Start 07/28/17 at 21:00; Status UNV Cefazolin Sodium/ Dextrose 50 ml @ 100 mls/hr Q8HRS IV Last administered on 06:20; Start 07/29/17 at 08:30 Polyethylene Glycol (miraLAX PACKET) 17 gm DAILY PO Last administered on 08:46; Start 07/29/17 at 09:00 Lorazepam (Ativan) 1 mg PRN Q4HRS PRN IV ANXIETY / AGITATION; Start 07/29/17 at 12:15 Furosemide (Lasix) 40 mg 1X ONCE IVP Last administered on 07/29/17 20:03; Start 07/29/17 at 19:45; Stop 07/29/17 at 19:46; Status DC Potassium Chloride (Klor-Con) 40 meq 1X ONCE PO Last administered on 12:10; Start 07/30/17 at 09:00; Stop 07/30/17 at 09:01; Status DC Magnesium Citrate (Citroma) 296 ml PRN 1X PRN PO CONSTIPATION Last administered on 07/31/17 09:06; Start 07/30/17 at 11:15 Furosemide (Lasix) 40 mg 1X ONCE IVP Last administered on 07/30/17 14:16; Start 07/30/17 at 12:30; Stop 07/30/17 at 12:31; Status DC Acetaminophen/ Hydrocodone Bitart (Lortab 7.5/325) 1 tab PRN Q4HRS PRN PO PAIN Last administered on 07/31/17 08:44; Start 07/30/17 at 17:15 Sodium Chloride 1,000 ml @ 75 mls/hr [id number] IV ; Start 07/31/17 at 11:15 Active Scripts Active Colace (Docusate Sodium) 100 Mg Capsule 100 Mg PO BID 60 Days Methocarbamol 750 Mg Tablet 750 Mg PO TID 60 Days Hydrocodone-Apap 7.5-325 (Hydrocodone Bit/Acetaminophen) 1 Each Tablet 1 Tab PO PRN Q6HRS PRN 60 Days Reported Tamsulosin Hcl 0.4 Mg Cap.er.24h 0.4 Mg PO DAILY Metformin Hcl 500 Mg Tablet 500 Mg PO DAILYBFRSUP Gabapentin 100 Mg Capsule 100 Mg PO TID Lovastatin 20 Mg Tablet 1 Tab PO DAILY Crkapzxujb-Dwdimfprmfb-Tyy Tab (Gluc/Jonah-Msm#2/C/D3/Vidal/Born) 1 Each Tablet 1 Each PO BID Glimepiride 1 Mg Tablet 0.5 Tab PO DAILY Losartan Potassium 100 Mg Tablet 100 Mg PO DAILY Diclofenac Sodium 75 Mg Tablet.dr 75 Mg PO BID Nitrostat (Nitroglycerin) 0.4 Mg Tab.subl 0.4 Mg SL PRN Viagra (Sildenafil Citrate) 100 Mg Tablet 100 Mg PO PRN Potassium Chloride 10 Meq Tablet.er 10 Meq PO DAILY Metformin Hcl 1,000 Mg Tablet 1,000 Mg PO DAILY08 Hydrochlorothiazide Tablet (Hydrochlorothiazide) 25 Mg Tablet 25 Mg PO DAILY Metoprolol Tartrate 100 Mg Tablet 50 Mg PO BID Flovent 50MCG Diskus (Fluticasone Propionate) 50 Mcg Disk.w.dev 50 Mcg IH DAILY Citalopram Hbr (Citalopram Hydrobromide) 20 Mg Tablet 20 Mg PO BID Nifedipine Er (Nifedipine) 90 Mg Tab.er.24 90 Mg PO DAILY Multivitamins (Multivitamin) 1 Each Tablet 1 Each PO DAILY Fish Oil 1,200 Mg Fish Oil (Fish Oil/Dha/Epa) 1 Each Capsule 1 Each PO BID Vitals/I & O Vital Sign - Last 24 Hours 07/30/17 07/30/17 07/30/17 07/30/17 15:55 16:19 19:44 20:10 Temp 98.6 98.7 98.6 98.7 Pulse 90 73 Resp 20 16 B/P (MAP) 115/64 (81) 106/66 (79) Pulse Ox 93 94 92 O2 Delivery Nasal Cannula Nasal Cannula Nasal Cannula Nasal Cannula O2 Flow Rate 2.0 2.0 2.0 2.0 10/4/17 10/4/17 10/4/17 10/5/17 20:11 20:27 23:59 03:10 Temp 98.6 99.1 98.6 99.1 Pulse 73 74 73 Resp 16 16 B/P (MAP) 106/66 112/51 (71) 115/62 (79) Pulse Ox 93 90 90 O2 Delivery Nasal Cannula Nasal Cannula Nasal Cannula O2 Flow Rate 2.0 2.0 3.0 07/31/17 07/31/17 07/31/17 07/31/17 06:50 07:14 08:43 08:44 Temp 98.4 98.4 Pulse 85 85 85 Resp 18 B/P (MAP) 150/82 (104) 150/82 150/82 Pulse Ox 91 91 O2 Delivery Nasal Cannula Nasal Cannula O2 Flow Rate 2.0 3.0 07/31/17 07/31/17 07/31/17 08:44 08:46 10:49 Temp 98.4 98.4 Pulse 85 75 Resp 20 17 B/P (MAP) 150/82 146/77 (100) Pulse Ox 92 94 O2 Delivery Nasal Cannula Nasal Cannula O2 Flow Rate 2.0 3.0 Intake and Output 07/31/17 07/31/17 08/01/17 14:59 22:59 06:59 Intake Total 480 ml Output Total 600 ml Balance -120 ml EVERETT FRENCH MD Jul 31, 2017 12:28
[2017-07-31] MEDS: IV NORMAL SALINE 1000ML BAG 1,000 ML IV SCH (12:46)
[2017-07-31 14:22] VITALS: BP 131/79
--- NOTE | 2017-07-31 14:31 | PDOC ---
PROGRESS NOTES Assessment Chronic back pain, MRI lumbar spine shows spinal stenosis Metabolic encephalopathy,memory loss, better today, also has had some hypoxia, Labs for other causes negative. Has not requiree Ativan Did not need CPAP last night Plan I encouraged the patient to get up and around in physical therapy to stretch his muscles and avoid the claustrophobia SNU Follow-up with me in 6 weeks Back pain management per Dr. Courtney Subjective Feels much better today, says that his mentation is fine. Objective Vital Signs Date Time Temp Pulse Resp B/P (MAP) Pulse Ox O2 Delivery O2 Flow Rate FiO2 07/31/17 14:22 98.5 70 17 131/79 (96) 94 Nasal Cannula 3.0 98.5 Intake and Output 08/01/17 07:00 Intake Total 700 ml Output Total 600 ml Balance 100 ml Intake Oral 700 ml Output Urine Total 600 ml PHYSICAL EXAM Alert. Oriented to time, place and person. PERRL. EOMI. CN: no focal findings. Muscle tone: normal. Muscle strength: 5/5 DTR: 1+ Plantar reflex: flexor Gait: not examined in bed. Sensory exam: no abnormal findings. No cerebellar signs elicited. Review of Relevant I have reviewed the following items kyler (where applicable) has been applied. Labs Laboratory Tests Test 07/29/17 19:25 07/29/17 22:28 07/30/17 04:25 07/30/17 07:35 O2 Saturation 98 % (92-99) Arterial Blood pH 7.50 (7.35-7.45) Arterial Blood pCO2 at Patient Temp 33 mmHg (35-46) Arterial Blood pO2 at Patient Temp 129 mmHg (65-108) Arterial Blood HCO3 25 mmol/L (21-28) Arterial Blood Base Excess 2 mmol/L (-3-3) FiO2 60.0 Glucose (Fingerstick) 128 mg/dL (70-99) 113 mg/dL (70-99) White Blood Count 11.8 x10^3/uL (4.0-11.0) Red Blood Count 3.68 x10^6/uL (4.30-5.70) Hemoglobin 10.3 g/dL (13.0-17.5) Hematocrit 29.7 % (39.0-53.0) Mean Corpuscular Volume 81 fL (79-100) Mean Corpuscular Hemoglobin 28 pg (25-35) Mean Corpuscular Hemoglobin Concent 35 g/dL (31-37) Red Cell Distribution Width 14.2 % (11.5-14.5) Platelet Count 258 x10^3/uL (140-400) Neutrophils (%) (Auto) 79 % (31-73) Lymphocytes (%) (Auto) 7 % (24-48) Monocytes (%) (Auto) 11 % (0-9) Eosinophils (%) (Auto) 3 % (0-3) Basophils (%) (Auto) 1 % (0-3) Neutrophils # (Auto) 9.4 x10^3uL (1.8-7.7) Lymphocytes # (Auto) 0.8 x10^3/uL (1.0-4.8) Monocytes # (Auto) 1.3 x10^3/uL (0.0-1.1) Eosinophils # (Auto) 0.3 x10^3/uL (0.0-0.7) Basophils # (Auto) 0.1 x10^3/uL (0.0-0.2) Sodium Level 134 mmol/L (136-145) Potassium Level 3.1 mmol/L (3.5-5.1) Chloride Level 96 mmol/L (98-107) Carbon Dioxide Level 31 mmol/L (21-32) Anion Gap 7 (6-14) Blood Urea Nitrogen 26 mg/dL (8-26) Creatinine 1.1 mg/dL (0.7-1.3) Estimated GFR (Cockcroft-Gault) 66.2 Glucose Level 110 mg/dL (70-99) Calcium Level 8.3 mg/dL (8.5-10.1) Test 07/30/17 11:32 07/30/17 16:54 07/30/17 21:10 07/31/17 03:45 Glucose (Fingerstick) 131 mg/dL (70-99) 175 mg/dL (70-99) 161 mg/dL (70-99) White Blood Count 9.5 x10^3/uL (4.0-11.0) Red Blood Count 3.57 x10^6/uL (4.30-5.70) Hemoglobin 10.1 g/dL (13.0-17.5) Hematocrit 29.5 % (39.0-53.0) Mean Corpuscular Volume 83 fL (79-100) Mean Corpuscular Hemoglobin 28 pg (25-35) Mean Corpuscular Hemoglobin Concent 34 g/dL (31-37) Red Cell Distribution Width 14.2 % (11.5-14.5) Platelet Count 256 x10^3/uL (140-400) Neutrophils (%) (Auto) 72 % (31-73) Lymphocytes (%) (Auto) 10 % (24-48) Monocytes (%) (Auto) 13 % (0-9) Eosinophils (%) (Auto) 4 % (0-3) Basophils (%) (Auto) 1 % (0-3) Neutrophils # (Auto) 6.8 x10^3uL (1.8-7.7) Lymphocytes # (Auto) 0.9 x10^3/uL (1.0-4.8) Monocytes # (Auto) 1.3 x10^3/uL (0.0-1.1) Eosinophils # (Auto) 0.4 x10^3/uL (0.0-0.7) Basophils # (Auto) 0.1 x10^3/uL (0.0-0.2) Sodium Level 131 mmol/L (136-145) Potassium Level 3.8 mmol/L (3.5-5.1) Chloride Level 95 mmol/L (98-107) Carbon Dioxide Level 31 mmol/L (21-32) Anion Gap 5 (6-14) Blood Urea Nitrogen 24 mg/dL (8-26) Creatinine 1.2 mg/dL (0.7-1.3) Estimated GFR (Cockcroft-Gault) 59.9 Glucose Level 112 mg/dL (70-99) Calcium Level 8.3 mg/dL (8.5-10.1) Test 07/31/17 07:18 07/31/17 11:34 Glucose (Fingerstick) 144 mg/dL (70-99) 121 mg/dL (70-99) Laboratory Tests Test 07/30/17 16:54 07/30/17 21:10 07/31/17 03:45 07/31/17 07:18 Glucose (Fingerstick) 175 mg/dL (70-99) 161 mg/dL (70-99) 144 mg/dL (70-99) White Blood Count 9.5 x10^3/uL (4.0-11.0) Red Blood Count 3.57 x10^6/uL (4.30-5.70) Hemoglobin 10.1 g/dL (13.0-17.5) Hematocrit 29.5 % (39.0-53.0) Mean Corpuscular Volume 83 fL (79-100) Mean Corpuscular Hemoglobin 28 pg (25-35) Mean Corpuscular Hemoglobin Concent 34 g/dL (31-37) Red Cell Distribution Width 14.2 % (11.5-14.5) Platelet Count 256 x10^3/uL (140-400) Neutrophils (%) (Auto) 72 % (31-73) Lymphocytes (%) (Auto) 10 % (24-48) Monocytes (%) (Auto) 13 % (0-9) Eosinophils (%) (Auto) 4 % (0-3) Basophils (%) (Auto) 1 % (0-3) Neutrophils # (Auto) 6.8 x10^3uL (1.8-7.7) Lymphocytes # (Auto) 0.9 x10^3/uL (1.0-4.8) Monocytes # (Auto) 1.3 x10^3/uL (0.0-1.1) Eosinophils # (Auto) 0.4 x10^3/uL (0.0-0.7) Basophils # (Auto) 0.1 x10^3/uL (0.0-0.2) Sodium Level 131 mmol/L (136-145) Potassium Level 3.8 mmol/L (3.5-5.1) Chloride Level 95 mmol/L (98-107) Carbon Dioxide Level 31 mmol/L (21-32) Anion Gap 5 (6-14) Blood Urea Nitrogen 24 mg/dL (8-26) Creatinine 1.2 mg/dL (0.7-1.3) Estimated GFR (Cockcroft-Gault) 59.9 Glucose Level 112 mg/dL (70-99) Calcium Level 8.3 mg/dL (8.5-10.1) Test 07/31/17 11:34 Glucose (Fingerstick) 121 mg/dL (70-99) Microbiology 07/28/17 Blood Culture - Preliminary, Resulted NO GROWTH AFTER 3 DAYS Medications Current Medications Citalopram Hydrobromide (CeleXA) 20 mg BID PO Last administered on 07/31/17 08 :45; Start 07/25/17 at 21:00 Docusate Sodium (Colace) 100 mg BID PO Last administered on 07/31/17 08:45; Start 07/25/17 at 21:00 Gabapentin (Neurontin) 100 mg TID PO Last administered on 07/31/17 08:45; Start 07/25/17 at 21:00 Hydrochlorothiazide (Hydrodiuril) 25 mg DAILY PO Last administered on 08:30; Start 07/26/17 at 09:00; Stop 07/27/17 at 14:23; Status DC Acetaminophen/ Hydrocodone Bitart (Lortab 7.5/325) 1 tab PRN Q6HRS PRN PO PAIN Last administered on 07/30/17 16:37; Start 07/25/17 at 19:45; Stop 07/30/17 at 17:09; Status DC Metformin HCl (Glucophage) 1,000 mg DAILY08 PO Last administered on 07/31/17 08:45; Start 07/26/17 at 08:00 Metformin HCl (Glucophage) 500 mg DAILYBFRSUP PO Last administered on 16:39; Start 07/26/17 at 17:00 Methocarbamol (Robaxin) 750 mg TID PO Last administered on 07/26/17 08:38; Start 07/25/17 at 21:00; Stop 07/26/17 at 18:44; Status DC Potassium Chloride (Klor-Con) 10 meq DAILYWBKFT PO Last administered on 08:33; Start 07/26/17 at 08:00; Stop 07/26/17 at 08:55; Status DC Tamsulosin HCl (Flomax) 0.4 mg DAILY PO Last administered on 07/31/17 08:44; Start 07/26/17 at 09:00 Diclofenac Sodium (Voltaren) 75 mg BID PO Last administered on 07/28/17 09:04 ; Start 07/25/17 at 21:00; Stop 07/28/17 at 19:45; Status DC Fish Oil (Fish Oil) 1,000 mg BID PO Last administered on 07/31/17 08:42; Start 07/25/17 at 21:00 Fluticasone Propionate (Flonase) 2 spray DAILY NS Last administered on 09:06; Start 07/26/17 at 09:00 Glimepiride (Amaryl) 0.5 mg DAILY PO Last administered on 07/31/17 08:46; Start 07/26/17 at 09:00 Non-Formulary Medication 1 each BID PO ; Start 07/25/17 at 21:00; Status UNV Losartan Potassium (Cozaar) 100 mg DAILY PO Last administered on 07/31/17 08: 44; Start 07/26/17 at 09:00 Atorvastatin Calcium (Lipitor) 5 mg QHS PO Last administered on 07/30/17 20:26 ; Start 07/25/17 at 21:00 Metoprolol Tartrate (Lopressor) 50 mg BID PO Last administered on 07/31/17 08: 46; Start 07/25/17 at 21:00 Multivitamins (Thera M Plus) 1 tab DAILY PO Last administered on 07/31/17 08: 43; Start 07/26/17 at 09:00 Nifedipine (Procardia Xl) 90 mg DAILY PO Last administered on 07/31/17 08:43; Start 07/26/17 at 09:00 Sodium Chloride 1,000 ml @ 1,000 mls/hr 1X ONCE IV Last administered on 21:56; Start 07/25/17 at 19:45; Stop 07/25/17 at 20:44; Status DC Potassium Chloride (Klor-Con) 40 meq 1X ONCE PO Last administered on 21:41; Start 07/25/17 at 19:45; Stop 07/25/17 at 19:48; Status DC Sodium Chloride 1,000 ml @ 100 mls/hr 1X ONCE IV Last administered on 21:53; Start 07/25/17 at 19:45; Stop 07/26/17 at 05:44; Status DC Insulin Aspart (NovoLOG) 0-7 UNITS TIDWMEALS SQ Last administered on 07/30/17 17:31; Start 07/26/17 at 08:00 Dextrose (Dextrose 50%-Water Syringe) 12.5 gm PRN Q15MIN PRN IV SEE COMMENTS; Start 07/25/17 at 20:00 Info (Do NOT chart on this placeholder) 0.5 each 1X ONCE MC ; Start 07/26/17 at 09:00; Stop 07/26/17 at 09:01; Status UNV Influenza Virus Vaccine Quadrival (Fluarix Quad [id number] Syringe) 0.5 ml ONCE ONCE VAX IM Last administered on 07/28/17 09:31; Start 07/26/17 at 09:00; Stop 07/26/17 at 09:01; Status DC Albuterol/ Ipratropium (Duoneb) 3 ml RTQID NEB Last administered on 07/31/17 10:49; Start 07/26/17 at 08:00 Albuterol Sulfate (Ventolin Neb Soln) 2.5 mg PRN Q2HRS PRN NEB SHORTNESS OF BREATH Last administered on 07/26/17 02:00; Start 07/26/17 at 01:30 Enoxaparin Sodium (Lovenox 100mg Syringe) 100 mg 1X ONCE SQ Last administered on 07/26/17 02:08; Start 07/26/17 at 02:00; Stop 07/26/17 at 02:04; Status DC Heparin Sodium/ Dextrose 500 ml @ 0 mls/hr CONT PRN IV SEE I/O RECORD Last administered on 07/26/17 03:42; Start 07/26/17 at 03:30; Stop 07/28/17 at 08:16 ; Status DC Heparin Sodium (Porcine) (Heparin Sodium) 2,450 unit PRN Q6HRS PRN IV FOR UFH LEVEL LESS THAN 0.2; Start 07/26/17 at 03:30; Stop 07/28/17 at 08:16; Status DC Info (Anti-Coagulation Monitoring By Pharmacy) 1 each PRN DAILY PRN MC SEE COMMENTS Last administered on 07/27/17 10:04; Start 07/26/17 at 03:30; Stop at 08:16; Status DC Vancomycin HCl (Vanco Per Pharmacy) 1 each PRN DAILY PRN MC SEE COMMENTS Last administered on 07/28/17 00:18; Start 07/26/17 at 08:15; Stop 07/28/17 at 12:53 ; Status DC Meropenem 1 gm/ Sodium Chloride 100 ml @ 200 mls/hr Q8HRS IV Last administered on 07/29/17 05:54; Start 07/26/17 at 08:30; Stop 07/29/17 at 08:23 ; Status DC Vancomycin HCl 2 gm/Sodium Chloride 500 ml @ 250 mls/hr 1X ONCE IV Last administered on 07/26/17 09:27; Start 07/26/17 at 08:30; Stop 07/26/17 at 10:29 ; Status DC Potassium Chloride (Klor-Con) 40 meq DAILYWBKFT PO Last administered on 08:45; Start 07/26/17 at 09:30 Vancomycin HCl 1.25 gm/Sodium Chloride 250 ml @ 167 mls/hr Q12H IV Last administered on 07/27/17 21:37; Start 07/26/17 at 22:00; Stop 07/28/17 at 01:00 ; Status DC Vancomycin HCl 1 each 1X ONCE MC Last administered on 07/27/17 21:30; Start 07/27/17 at 21:30; Stop 07/27/17 at 21:31; Status DC Furosemide (Lasix) 40 mg 1X ONCE IVP Last administered on 07/26/17 11:47; Start 07/26/17 at 11:30; Stop 07/26/17 at 11:31; Status DC Gadobutrol (Gadavist) 10 mmol 1X ONCE IV Last administered on 07/26/17 16:19 ; Start 07/26/17 at 16:15; Stop 07/26/17 at 16:16; Status DC Morphine Sulfate 3 mg PRN Q3HRS PRN IV PAIN Last administered on 07/29/17 01: 45; Start 07/27/17 at 08:30 Morphine Sulfate 4 mg PRN Q3HRS PRN IV PAIN; Start 07/27/17 at 08:30 Morphine Sulfate 5 mg PRN Q3HRS PRN IV PAIN; Start 07/27/17 at 08:45 Gadobutrol (Gadavist) 9 mmol 1X ONCE IV Last administered on 07/27/17 10:37; Start 07/27/17 at 10:15; Stop 07/27/17 at 10:16; Status DC Furosemide (Lasix) 40 mg 1X ONCE IVP Last administered on 07/27/17 14:12; Start 07/27/17 at 14:00; Stop 07/27/17 at 14:01; Status DC Vancomycin HCl 1.5 gm/Sodium Chloride 500 ml @ 250 mls/hr Q24H IV ; Start 07/28 at 22:00; Stop 07/28/17 at 22:00; Status DC Vancomycin HCl 1 each 1X ONCE MC ; Start 07/30/17 at 21:30; Stop 07/30/17 at 21 :30; Status DC Acetaminophen (Tylenol) 650 mg PRN Q6HRS PRN PO FEVER > 100.5'F Last administered on 07/30/17 12:11; Start 07/28/17 at 05:30 Tamsulosin HCl (Flomax) 0.4 mg QHS PO ; Start 07/28/17 at 21:00; Status UNV Cefazolin Sodium/ Dextrose 50 ml @ 100 mls/hr Q8HRS IV Last administered on 06:20; Start 07/29/17 at 08:30 Polyethylene Glycol (miraLAX PACKET) 17 gm DAILY PO Last administered on 08:46; Start 07/29/17 at 09:00 Lorazepam (Ativan) 1 mg PRN Q4HRS PRN IV ANXIETY / AGITATION; Start 07/29/17 at 12:15 Furosemide (Lasix) 40 mg 1X ONCE IVP Last administered on 07/29/17 20:03; Start 07/29/17 at 19:45; Stop 07/29/17 at 19:46; Status DC Potassium Chloride (Klor-Con) 40 meq 1X ONCE PO Last administered on 12:10; Start 07/30/17 at 09:00; Stop 07/30/17 at 09:01; Status DC Magnesium Citrate (Citroma) 296 ml PRN 1X PRN PO CONSTIPATION Last administered on 07/31/17 09:06; Start 07/30/17 at 11:15 Furosemide (Lasix) 40 mg 1X ONCE IVP Last administered on 07/30/17 14:16; Start 07/30/17 at 12:30; Stop 07/30/17 at 12:31; Status DC Acetaminophen/ Hydrocodone Bitart (Lortab 7.5/325) 1 tab PRN Q4HRS PRN PO PAIN Last administered on 07/31/17 08:44; Start 07/30/17 at 17:15 Sodium Chloride 1,000 ml @ 75 mls/hr [id number] IV Last administered on 12:46; Start 07/31/17 at 11:15 Active Scripts Active Colace (Docusate Sodium) 100 Mg Capsule 100 Mg PO BID 60 Days Methocarbamol 750 Mg Tablet 750 Mg PO TID 60 Days Hydrocodone-Apap 7.5-325 (Hydrocodone Bit/Acetaminophen) 1 Each Tablet 1 Tab PO PRN Q6HRS PRN 60 Days Reported Tamsulosin Hcl 0.4 Mg Cap.er.24h 0.4 Mg PO DAILY Metformin Hcl 500 Mg Tablet 500 Mg PO DAILYBFRSUP Gabapentin 100 Mg Capsule 100 Mg PO TID Lovastatin 20 Mg Tablet 1 Tab PO DAILY Kawfpjlxkr-Siyhufalfhl-Msl Tab (Gluc/Jonah-Msm#2/C/D3/Vidal/Born) 1 Each Tablet 1 Each PO BID Glimepiride 1 Mg Tablet 0.5 Tab PO DAILY Losartan Potassium 100 Mg Tablet 100 Mg PO DAILY Diclofenac Sodium 75 Mg Tablet.dr 75 Mg PO BID Nitrostat (Nitroglycerin) 0.4 Mg Tab.subl 0.4 Mg SL PRN Viagra (Sildenafil Citrate) 100 Mg Tablet 100 Mg PO PRN Potassium Chloride 10 Meq Tablet.er 10 Meq PO DAILY Metformin Hcl 1,000 Mg Tablet 1,000 Mg PO DAILY08 Hydrochlorothiazide Tablet (Hydrochlorothiazide) 25 Mg Tablet 25 Mg PO DAILY Metoprolol Tartrate 100 Mg Tablet 50 Mg PO BID Flovent 50MCG Diskus (Fluticasone Propionate) 50 Mcg Disk.w.dev 50 Mcg IH DAILY Citalopram Hbr (Citalopram Hydrobromide) 20 Mg Tablet 20 Mg PO BID Nifedipine Er (Nifedipine) 90 Mg Tab.er.24 90 Mg PO DAILY Multivitamins (Multivitamin) 1 Each Tablet 1 Each PO DAILY Fish Oil 1,200 Mg Fish Oil (Fish Oil/Dha/Epa) 1 Each Capsule 1 Each PO BID Vitals/I & O Vital Sign - Last 24 Hours 07/30/17 07/30/17 07/30/17 07/30/17 15:55 16:19 19:44 20:10 Temp 98.6 98.7 98.6 98.7 Pulse 90 73 Resp 20 16 B/P (MAP) 115/64 (81) 106/66 (79) Pulse Ox 93 94 92 O2 Delivery Nasal Cannula Nasal Cannula Nasal Cannula Nasal Cannula O2 Flow Rate 2.0 2.0 2.0 2.0 07/30/17 07/30/17 07/30/17 07/31/17 20:11 20:27 23:59 03:10 Temp 98.6 99.1 98.6 99.1 Pulse 73 74 73 Resp 16 16 B/P (MAP) 106/66 112/51 (71) 115/62 (79) Pulse Ox 93 90 90 O2 Delivery Nasal Cannula Nasal Cannula Nasal Cannula O2 Flow Rate 2.0 2.0 3.0 07/31/17 07/31/17 07/31/17 07/31/17 06:50 07:14 08:43 08:44 Temp 98.4 98.4 Pulse 85 85 85 Resp 18 B/P (MAP) 150/82 (104) 150/82 150/82 Pulse Ox 91 91 O2 Delivery Nasal Cannula Nasal Cannula O2 Flow Rate 2.0 3.0 07/31/17 07/31/17 07/31/17 07/31/17 08:44 08:46 09:50 10:49 Temp 98.4 98.4 Pulse 85 75 Resp 20 20 17 B/P (MAP) 150/82 146/77 (100) Pulse Ox 92 93 94 O2 Delivery Nasal Cannula Nasal Cannula Nasal Cannula O2 Flow Rate 2.0 2.0 3.0 07/31/17 14:22 Temp 98.5 98.5 Pulse 70 Resp 17 B/P (MAP) 131/79 (96) Pulse Ox 94 O2 Delivery Nasal Cannula O2 Flow Rate 3.0 Intake and Output 07/31/17 07/31/17 08/01/17 15:00 23:00 07:00 Intake Total 700 ml Output Total 600 ml Balance 100 ml STEPHANIA BARKSDALE MD Jul 31, 2017 14:31
--- NOTE | 2017-07-31 16:29 | RAD ---
Chest x-ray Indication: CHF Technique: Portable AP upright chest x-ray Comparison: Previous study from 07/29/2017 findings: Heart is normal in size. Significant improvement in previously seen pulmonary vascular congestion and interstitial edema. There is improvement in previously seen opacity within right upper lobe. No pneumothorax or pleural effusion. Visualized bony thorax within normal limits. Impression: 1. Significant improvement in previously seen CHF changes. 2. Interval improvement in right upper lobe opacity most likely suggests improving pulmonary edema or resolving pneumonia.
[2017-07-31] MEDS: metFORMIN 500 MG TABLET PO SCH (17:00)
--- NOTE | 2017-07-31 19:04 | PDOC ---
PROGRESS NOTES Subjective Subjective No new complaints Objective Objective Vital Signs Date Time Temp Pulse Resp B/P (MAP) Pulse Ox O2 Delivery O2 Flow Rate FiO2 07/31/17 17:23 20 93 Nasal Cannula 2.0 07/31/17 14:22 98.5 70 131/79 (96) 98.5 Intake and Output 08/01/17 07:00 Intake Total 1740 ml Output Total 1250 ml Balance 490 ml Intake Oral 1740 ml Output Urine Total 1250 ml Physical Exam Physical Exam No significant changes and cardiac exam Assessment Assessment Patient compensated cardiac-tompkins. We will do with a heart catheterization when okay with the other services. Comment Review of Relevant I have reviewed the following items kyler (where applicable) has been applied. Labs Laboratory Tests Test 07/29/17 19:25 07/29/17 22:28 07/30/17 04:25 07/30/17 07:35 O2 Saturation 98 % (92-99) Arterial Blood pH 7.50 (7.35-7.45) Arterial Blood pCO2 at Patient Temp 33 mmHg (35-46) Arterial Blood pO2 at Patient Temp 129 mmHg (65-108) Arterial Blood HCO3 25 mmol/L (21-28) Arterial Blood Base Excess 2 mmol/L (-3-3) FiO2 60.0 Glucose (Fingerstick) 128 mg/dL (70-99) 113 mg/dL (70-99) White Blood Count 11.8 x10^3/uL (4.0-11.0) Red Blood Count 3.68 x10^6/uL (4.30-5.70) Hemoglobin 10.3 g/dL (13.0-17.5) Hematocrit 29.7 % (39.0-53.0) Mean Corpuscular Volume 81 fL (79-100) Mean Corpuscular Hemoglobin 28 pg (25-35) Mean Corpuscular Hemoglobin Concent 35 g/dL (31-37) Red Cell Distribution Width 14.2 % (11.5-14.5) Platelet Count 258 x10^3/uL (140-400) Neutrophils (%) (Auto) 79 % (31-73) Lymphocytes (%) (Auto) 7 % (24-48) Monocytes (%) (Auto) 11 % (0-9) Eosinophils (%) (Auto) 3 % (0-3) Basophils (%) (Auto) 1 % (0-3) Neutrophils # (Auto) 9.4 x10^3uL (1.8-7.7) Lymphocytes # (Auto) 0.8 x10^3/uL (1.0-4.8) Monocytes # (Auto) 1.3 x10^3/uL (0.0-1.1) Eosinophils # (Auto) 0.3 x10^3/uL (0.0-0.7) Basophils # (Auto) 0.1 x10^3/uL (0.0-0.2) Sodium Level 134 mmol/L (136-145) Potassium Level 3.1 mmol/L (3.5-5.1) Chloride Level 96 mmol/L (98-107) Carbon Dioxide Level 31 mmol/L (21-32) Anion Gap 7 (6-14) Blood Urea Nitrogen 26 mg/dL (8-26) Creatinine 1.1 mg/dL (0.7-1.3) Estimated GFR (Cockcroft-Gault) 66.2 Glucose Level 110 mg/dL (70-99) Calcium Level 8.3 mg/dL (8.5-10.1) Test 07/30/17 11:32 07/30/17 16:54 07/30/17 21:10 07/31/17 03:45 Glucose (Fingerstick) 131 mg/dL (70-99) 175 mg/dL (70-99) 161 mg/dL (70-99) White Blood Count 9.5 x10^3/uL (4.0-11.0) Red Blood Count 3.57 x10^6/uL (4.30-5.70) Hemoglobin 10.1 g/dL (13.0-17.5) Hematocrit 29.5 % (39.0-53.0) Mean Corpuscular Volume 83 fL (79-100) Mean Corpuscular Hemoglobin 28 pg (25-35) Mean Corpuscular Hemoglobin Concent 34 g/dL (31-37) Red Cell Distribution Width 14.2 % (11.5-14.5) Platelet Count 256 x10^3/uL (140-400) Neutrophils (%) (Auto) 72 % (31-73) Lymphocytes (%) (Auto) 10 % (24-48) Monocytes (%) (Auto) 13 % (0-9) Eosinophils (%) (Auto) 4 % (0-3) Basophils (%) (Auto) 1 % (0-3) Neutrophils # (Auto) 6.8 x10^3uL (1.8-7.7) Lymphocytes # (Auto) 0.9 x10^3/uL (1.0-4.8) Monocytes # (Auto) 1.3 x10^3/uL (0.0-1.1) Eosinophils # (Auto) 0.4 x10^3/uL (0.0-0.7) Basophils # (Auto) 0.1 x10^3/uL (0.0-0.2) Sodium Level 131 mmol/L (136-145) Potassium Level 3.8 mmol/L (3.5-5.1) Chloride Level 95 mmol/L (98-107) Carbon Dioxide Level 31 mmol/L (21-32) Anion Gap 5 (6-14) Blood Urea Nitrogen 24 mg/dL (8-26) Creatinine 1.2 mg/dL (0.7-1.3) Estimated GFR (Cockcroft-Gault) 59.9 Glucose Level 112 mg/dL (70-99) Calcium Level 8.3 mg/dL (8.5-10.1) Test 07/31/17 07:18 07/31/17 11:34 07/31/17 16:47 Glucose (Fingerstick) 144 mg/dL (70-99) 121 mg/dL (70-99) 134 mg/dL (70-99) Laboratory Tests Test 07/30/17 21:10 07/31/17 03:45 07/31/17 07:18 07/31/17 11:34 Glucose (Fingerstick) 161 mg/dL (70-99) 144 mg/dL (70-99) 121 mg/dL (70-99) White Blood Count 9.5 x10^3/uL (4.0-11.0) Red Blood Count 3.57 x10^6/uL (4.30-5.70) Hemoglobin 10.1 g/dL (13.0-17.5) Hematocrit 29.5 % (39.0-53.0) Mean Corpuscular Volume 83 fL (79-100) Mean Corpuscular Hemoglobin 28 pg (25-35) Mean Corpuscular Hemoglobin Concent 34 g/dL (31-37) Red Cell Distribution Width 14.2 % (11.5-14.5) Platelet Count 256 x10^3/uL (140-400) Neutrophils (%) (Auto) 72 % (31-73) Lymphocytes (%) (Auto) 10 % (24-48) Monocytes (%) (Auto) 13 % (0-9) Eosinophils (%) (Auto) 4 % (0-3) Basophils (%) (Auto) 1 % (0-3) Neutrophils # (Auto) 6.8 x10^3uL (1.8-7.7) Lymphocytes # (Auto) 0.9 x10^3/uL (1.0-4.8) Monocytes # (Auto) 1.3 x10^3/uL (0.0-1.1) Eosinophils # (Auto) 0.4 x10^3/uL (0.0-0.7) Basophils # (Auto) 0.1 x10^3/uL (0.0-0.2) Sodium Level 131 mmol/L (136-145) Potassium Level 3.8 mmol/L (3.5-5.1) Chloride Level 95 mmol/L (98-107) Carbon Dioxide Level 31 mmol/L (21-32) Anion Gap 5 (6-14) Blood Urea Nitrogen 24 mg/dL (8-26) Creatinine 1.2 mg/dL (0.7-1.3) Estimated GFR (Cockcroft-Gault) 59.9 Glucose Level 112 mg/dL (70-99) Calcium Level 8.3 mg/dL (8.5-10.1) Test 07/31/17 16:47 Glucose (Fingerstick) 134 mg/dL (70-99) Microbiology 07/28/17 Blood Culture - Preliminary, Resulted NO GROWTH AFTER 3 DAYS Medications Current Medications Citalopram Hydrobromide (CeleXA) 20 mg BID PO Last administered on 07/31/17 08 :45; Start 07/25/17 at 21:00 Docusate Sodium (Colace) 100 mg BID PO Last administered on 07/31/17 08:45; Start 07/25/17 at 21:00 Gabapentin (Neurontin) 100 mg TID PO Last administered on 07/31/17 15:50; Start 07/25/17 at 21:00 Hydrochlorothiazide (Hydrodiuril) 25 mg DAILY PO Last administered on 08:30; Start 07/26/17 at 09:00; Stop 07/27/17 at 14:23; Status DC Acetaminophen/ Hydrocodone Bitart (Lortab 7.5/325) 1 tab PRN Q6HRS PRN PO PAIN Last administered on 07/30/17 16:37; Start 07/25/17 at 19:45; Stop 07/30/17 at 17:09; Status DC Metformin HCl (Glucophage) 1,000 mg DAILY08 PO Last administered on 07/31/17 17:19; Start 07/26/17 at 08:00 Metformin HCl (Glucophage) 500 mg DAILYBFRSUP PO Last administered on 17:00; Start 07/26/17 at 17:00 Methocarbamol (Robaxin) 750 mg TID PO Last administered on 07/26/17 08:38; Start 07/25/17 at 21:00; Stop 07/26/17 at 18:44; Status DC Potassium Chloride (Klor-Con) 10 meq DAILYWBKFT PO Last administered on 08:33; Start 07/26/17 at 08:00; Stop 07/26/17 at 08:55; Status DC Tamsulosin HCl (Flomax) 0.4 mg DAILY PO Last administered on 07/31/17 08:44; Start 07/26/17 at 09:00 Diclofenac Sodium (Voltaren) 75 mg BID PO Last administered on 07/28/17 09:04 ; Start 07/25/17 at 21:00; Stop 07/28/17 at 19:45; Status DC Fish Oil (Fish Oil) 1,000 mg BID PO Last administered on 07/31/17 08:42; Start 07/25/17 at 21:00 Fluticasone Propionate (Flonase) 2 spray DAILY NS Last administered on 09:06; Start 07/26/17 at 09:00 Glimepiride (Amaryl) 0.5 mg DAILY PO Last administered on 07/31/17 08:46; Start 07/26/17 at 09:00 Non-Formulary Medication 1 each BID PO ; Start 07/25/17 at 21:00; Status UNV Losartan Potassium (Cozaar) 100 mg DAILY PO Last administered on 07/31/17 08: 44; Start 07/26/17 at 09:00 Atorvastatin Calcium (Lipitor) 5 mg QHS PO Last administered on 07/30/17 20:26 ; Start 07/25/17 at 21:00 Metoprolol Tartrate (Lopressor) 50 mg BID PO Last administered on 07/31/17 08: 46; Start 07/25/17 at 21:00 Multivitamins (Thera M Plus) 1 tab DAILY PO Last administered on 07/31/17 08: 43; Start 07/26/17 at 09:00 Nifedipine (Procardia Xl) 90 mg DAILY PO Last administered on 07/31/17 08:43; Start 07/26/17 at 09:00 Sodium Chloride 1,000 ml @ 1,000 mls/hr 1X ONCE IV Last administered on 21:56; Start 07/25/17 at 19:45; Stop 07/25/17 at 20:44; Status DC Potassium Chloride (Klor-Con) 40 meq 1X ONCE PO Last administered on 21:41; Start 07/25/17 at 19:45; Stop 07/25/17 at 19:48; Status DC Sodium Chloride 1,000 ml @ 100 mls/hr 1X ONCE IV Last administered on 21:53; Start 07/25/17 at 19:45; Stop 07/26/17 at 05:44; Status DC Insulin Aspart (NovoLOG) 0-7 UNITS TIDWMEALS SQ Last administered on 07/30/17 17:31; Start 07/26/17 at 08:00 Dextrose (Dextrose 50%-Water Syringe) 12.5 gm PRN Q15MIN PRN IV SEE COMMENTS; Start 07/25/17 at 20:00 Info (Do NOT chart on this placeholder) 0.5 each 1X ONCE MC ; Start 07/26/17 at 09:00; Stop 07/26/17 at 09:01; Status UNV Influenza Virus Vaccine Quadrival (Fluarix Quad [id number] Syringe) 0.5 ml ONCE ONCE VAX IM Last administered on 07/28/17 09:31; Start 07/26/17 at 09:00; Stop 07/26/17 at 09:01; Status DC Albuterol/ Ipratropium (Duoneb) 3 ml RTQID NEB Last administered on 07/31/17 14:51; Start 07/26/17 at 08:00 Albuterol Sulfate (Ventolin Neb Soln) 2.5 mg PRN Q2HRS PRN NEB SHORTNESS OF BREATH Last administered on 07/26/17 02:00; Start 07/26/17 at 01:30 Enoxaparin Sodium (Lovenox 100mg Syringe) 100 mg 1X ONCE SQ Last administered on 07/26/17 02:08; Start 07/26/17 at 02:00; Stop 07/26/17 at 02:04; Status DC Heparin Sodium/ Dextrose 500 ml @ 0 mls/hr CONT PRN IV SEE I/O RECORD Last administered on 07/26/17 03:42; Start 07/26/17 at 03:30; Stop 07/28/17 at 08:16 ; Status DC Heparin Sodium (Porcine) (Heparin Sodium) 2,450 unit PRN Q6HRS PRN IV FOR UFH LEVEL LESS THAN 0.2; Start 07/26/17 at 03:30; Stop 07/28/17 at 08:16; Status DC Info (Anti-Coagulation Monitoring By Pharmacy) 1 each PRN DAILY PRN MC SEE COMMENTS Last administered on 07/27/17 10:04; Start 07/26/17 at 03:30; Stop at 08:16; Status DC Vancomycin HCl (Vanco Per Pharmacy) 1 each PRN DAILY PRN MC SEE COMMENTS Last administered on 07/28/17 00:18; Start 07/26/17 at 08:15; Stop 07/28/17 at 12:53 ; Status DC Meropenem 1 gm/ Sodium Chloride 100 ml @ 200 mls/hr Q8HRS IV Last administered on 07/29/17 05:54; Start 07/26/17 at 08:30; Stop 07/29/17 at 08:23 ; Status DC Vancomycin HCl 2 gm/Sodium Chloride 500 ml @ 250 mls/hr 1X ONCE IV Last administered on 07/26/17 09:27; Start 07/26/17 at 08:30; Stop 07/26/17 at 10:29 ; Status DC Potassium Chloride (Klor-Con) 40 meq DAILYWBKFT PO Last administered on 08:45; Start 07/26/17 at 09:30 Vancomycin HCl 1.25 gm/Sodium Chloride 250 ml @ 167 mls/hr Q12H IV Last administered on 07/27/17 21:37; Start 07/26/17 at 22:00; Stop 07/28/17 at 01:00 ; Status DC Vancomycin HCl 1 each 1X ONCE MC Last administered on 07/27/17 21:30; Start 07/27/17 at 21:30; Stop 07/27/17 at 21:31; Status DC Furosemide (Lasix) 40 mg 1X ONCE IVP Last administered on 07/26/17 11:47; Start 07/26/17 at 11:30; Stop 07/26/17 at 11:31; Status DC Gadobutrol (Gadavist) 10 mmol 1X ONCE IV Last administered on 07/26/17 16:19 ; Start 07/26/17 at 16:15; Stop 07/26/17 at 16:16; Status DC Morphine Sulfate 3 mg PRN Q3HRS PRN IV PAIN Last administered on 07/29/17 01: 45; Start 07/27/17 at 08:30 Morphine Sulfate 4 mg PRN Q3HRS PRN IV PAIN; Start 07/27/17 at 08:30 Morphine Sulfate 5 mg PRN Q3HRS PRN IV PAIN; Start 07/27/17 at 08:45 Gadobutrol (Gadavist) 9 mmol 1X ONCE IV Last administered on 07/27/17 10:37; Start 07/27/17 at 10:15; Stop 07/27/17 at 10:16; Status DC Furosemide (Lasix) 40 mg 1X ONCE IVP Last administered on 07/27/17 14:12; Start 07/27/17 at 14:00; Stop 07/27/17 at 14:01; Status DC Vancomycin HCl 1.5 gm/Sodium Chloride 500 ml @ 250 mls/hr Q24H IV ; Start 07/28 at 22:00; Stop 07/28/17 at 22:00; Status DC Vancomycin HCl 1 each 1X ONCE MC ; Start 07/30/17 at 21:30; Stop 07/30/17 at 21 :30; Status DC Acetaminophen (Tylenol) 650 mg PRN Q6HRS PRN PO FEVER > 100.5'F Last administered on 07/30/17 12:11; Start 07/28/17 at 05:30 Tamsulosin HCl (Flomax) 0.4 mg QHS PO ; Start 07/28/17 at 21:00; Status UNV Cefazolin Sodium/ Dextrose 50 ml @ 100 mls/hr Q8HRS IV Last administered on 15:50; Start 07/29/17 at 08:30 Polyethylene Glycol (miraLAX PACKET) 17 gm DAILY PO Last administered on 08:46; Start 07/29/17 at 09:00 Lorazepam (Ativan) 1 mg PRN Q4HRS PRN IV ANXIETY / AGITATION; Start 07/29/17 at 12:15 Furosemide (Lasix) 40 mg 1X ONCE IVP Last administered on 07/29/17 20:03; Start 07/29/17 at 19:45; Stop 07/29/17 at 19:46; Status DC Potassium Chloride (Klor-Con) 40 meq 1X ONCE PO Last administered on 12:10; Start 07/30/17 at 09:00; Stop 07/30/17 at 09:01; Status DC Magnesium Citrate (Citroma) 296 ml PRN 1X PRN PO CONSTIPATION Last administered on 07/31/17 09:06; Start 07/30/17 at 11:15 Furosemide (Lasix) 40 mg 1X ONCE IVP Last administered on 07/30/17 14:16; Start 07/30/17 at 12:30; Stop 07/30/17 at 12:31; Status DC Acetaminophen/ Hydrocodone Bitart (Lortab 7.5/325) 1 tab PRN Q4HRS PRN PO PAIN Last administered on 07/31/17 17:23; Start 07/30/17 at 17:15 Sodium Chloride 1,000 ml @ 75 mls/hr [id number] IV Last administered on 12:46; Start 07/31/17 at 11:15 Active Scripts Active Colace (Docusate Sodium) 100 Mg Capsule 100 Mg PO BID 60 Days Methocarbamol 750 Mg Tablet 750 Mg PO TID 60 Days Hydrocodone-Apap 7.5-325 (Hydrocodone Bit/Acetaminophen) 1 Each Tablet 1 Tab PO PRN Q6HRS PRN 60 Days Reported Tamsulosin Hcl 0.4 Mg Cap.er.24h 0.4 Mg PO DAILY Metformin Hcl 500 Mg Tablet 500 Mg PO DAILYBFRSUP Gabapentin 100 Mg Capsule 100 Mg PO TID Lovastatin 20 Mg Tablet 1 Tab PO DAILY Mgttpsjlcu-Burujwqaenq-Iiw Tab (Gluc/Jonah-Msm#2/C/D3/Vidal/Born) 1 Each Tablet 1 Each PO BID Glimepiride 1 Mg Tablet 0.5 Tab PO DAILY Losartan Potassium 100 Mg Tablet 100 Mg PO DAILY Diclofenac Sodium 75 Mg Tablet.dr 75 Mg PO BID Nitrostat (Nitroglycerin) 0.4 Mg Tab.subl 0.4 Mg SL PRN Viagra (Sildenafil Citrate) 100 Mg Tablet 100 Mg PO PRN Potassium Chloride 10 Meq Tablet.er 10 Meq PO DAILY Metformin Hcl 1,000 Mg Tablet 1,000 Mg PO DAILY08 Hydrochlorothiazide Tablet (Hydrochlorothiazide) 25 Mg Tablet 25 Mg PO DAILY Metoprolol Tartrate 100 Mg Tablet 50 Mg PO BID Flovent 50MCG Diskus (Fluticasone Propionate) 50 Mcg Disk.w.dev 50 Mcg IH DAILY Citalopram Hbr (Citalopram Hydrobromide) 20 Mg Tablet 20 Mg PO BID Nifedipine Er (Nifedipine) 90 Mg Tab.er.24 90 Mg PO DAILY Multivitamins (Multivitamin) 1 Each Tablet 1 Each PO DAILY Fish Oil 1,200 Mg Fish Oil (Fish Oil/Dha/Epa) 1 Each Capsule 1 Each PO BID Vitals/I & O Vital Sign - Last 24 Hours 07/30/17 07/30/17 07/30/17 07/30/17 19:44 20:10 20:11 20:27 Temp 98.7 98.7 Pulse 73 73 Resp 16 B/P (MAP) 106/66 (79) 106/66 Pulse Ox 92 93 O2 Delivery Nasal Cannula Nasal Cannula Nasal Cannula O2 Flow Rate 2.0 2.0 2.0 07/30/17 07/31/17 07/31/17 07/31/17 23:59 03:10 06:50 07:14 Temp 98.6 99.1 98.4 98.6 99.1 98.4 Pulse 74 73 85 Resp 16 16 18 B/P (MAP) 112/51 (71) 115/62 (79) 150/82 (104) Pulse Ox 90 90 91 91 O2 Delivery Nasal Cannula Nasal Cannula Nasal Cannula Nasal Cannula O2 Flow Rate 2.0 3.0 2.0 3.0 07/31/17 07/31/17 07/31/17 07/31/17 08:43 08:44 08:44 08:46 Pulse 85 85 85 Resp 20 B/P (MAP) 150/82 150/82 150/82 Pulse Ox 92 O2 Delivery Nasal Cannula O2 Flow Rate 2.0 07/31/17 07/31/17 07/31/17 07/31/17 09:50 10:49 10:50 14:22 Temp 98.4 98.5 98.4 98.5 Pulse 75 70 Resp 20 17 17 B/P (MAP) 146/77 (100) 131/79 (96) Pulse Ox 93 94 96 94 O2 Delivery Nasal Cannula Nasal Cannula Nasal Cannula Nasal Cannula O2 Flow Rate 2.0 3.0 2.0 3.0 07/31/17 07/31/17 14:51 17:23 Resp 20 Pulse Ox 93 O2 Delivery Nasal Cannula Nasal Cannula O2 Flow Rate 2.0 2.0 Intake and Output 07/31/17 07/31/17 08/01/17 15:00 23:00 07:00 Intake Total 700 ml 1040 ml Output Total 600 ml 650 ml Balance 100 ml 390 ml BRYCE DAILY MD Jul 31, 2017 19:03
[2017-07-31 19:51] VITALS: BP 128/68
[2017-07-31] MEDS: ATORVASTATIN CALCIUM 10 MG TABLET. PO SCH (22:34)
[2017-07-31 23:50] VITALS: BP 129/64
[2017-08-01 03:39] VITALS: BP 113/68
[2017-08-01] MEDS: IV NORMAL SALINE 1000ML BAG 1,000 ML IV SCH (04:58)
[2017-08-01 06:35] LABS: BASO # 0.1 x10^3/uL (0.0-0.2); BASO % 1 % (0-3); EOS % 4 % (0-3); HEMATOCRIT 30.1 % (39.0-53.0); HEMOGLOBIN 10.2 g/dL (13.0-17.5); LYMPH % 10 % (24-48); MEAN CORPUSCULAR HEMOGLOBIN 28 pg (25-35); MEAN CORPUSCULAR HGB CONC 34 g/dL (31-37); MEAN CORPUSCULAR VOLUME 84 fL (79-100); MONO % 11 % (0-9); NEUT % 74 % (31-73); PLATELET COUNT 295 x10^3/uL (140-400); RED CELL DISTRIBUTION WIDTH 14.5 % (11.5-14.5); WHITE BLOOD COUNT 10.2 x10^3/uL (4.0-11.0)
[2017-08-01 06:44] LABS: CALCIUM 8.4 mg/dL (8.5-10.1); CREATININE 0.9 mg/dL (0.7-1.3); GFR 83.4; POTASSIUM 4.1 mmol/L (3.5-5.1)
[2017-08-01 06:48] VITALS: BP 153/76
[2017-08-01] MEDS: IPRATRPIUM/ALBUTEROL 0.5/2.5MG 3 ML NEBU. NEB SCH ×3 (07:58→15:58)
[2017-08-01] MEDS: INSULIN ASPART 300 UNITS/3 ML INSULN.PEN SQ SCH ×2 (08:00→12:00)
--- NOTE | 2017-08-01 08:00 | PDOC ---
PROGRESS NOTES Assessment Chronic back pain, MRI lumbar spine shows spinal stenosis Metabolic encephalopathy,memory loss, better today, also has had some hypoxia, Labs for other causes negative. Has not required Ativan Plan SNU Follow-up with me in 6 weeks Back pain management per Dr. Courtney Subjective Slept well again last night Objective Vital Signs Date Time Temp Pulse Resp B/P (MAP) Pulse Ox O2 Delivery O2 Flow Rate FiO2 08/01/17 06:48 99.1 72 18 153/76 (101) 92 Nasal Cannula 2.0 99.1 PHYSICAL EXAM Alert. Oriented to time, place and person. PERRL. EOMI. CN: no focal findings. Muscle tone: normal. Muscle strength: 5/5 DTR: 1+ Plantar reflex: flexor Gait: not examined in bed. Sensory exam: no abnormal findings. No cerebellar signs elicited. Review of Relevant I have reviewed the following items kyler (where applicable) has been applied. Labs Laboratory Tests Test 07/30/17 11:32 07/30/17 16:54 07/30/17 21:10 07/31/17 03:45 Glucose (Fingerstick) 131 mg/dL (70-99) 175 mg/dL (70-99) 161 mg/dL (70-99) White Blood Count 9.5 x10^3/uL (4.0-11.0) Red Blood Count 3.57 x10^6/uL (4.30-5.70) Hemoglobin 10.1 g/dL (13.0-17.5) Hematocrit 29.5 % (39.0-53.0) Mean Corpuscular Volume 83 fL (79-100) Mean Corpuscular Hemoglobin 28 pg (25-35) Mean Corpuscular Hemoglobin Concent 34 g/dL (31-37) Red Cell Distribution Width 14.2 % (11.5-14.5) Platelet Count 256 x10^3/uL (140-400) Neutrophils (%) (Auto) 72 % (31-73) Lymphocytes (%) (Auto) 10 % (24-48) Monocytes (%) (Auto) 13 % (0-9) Eosinophils (%) (Auto) 4 % (0-3) Basophils (%) (Auto) 1 % (0-3) Neutrophils # (Auto) 6.8 x10^3uL (1.8-7.7) Lymphocytes # (Auto) 0.9 x10^3/uL (1.0-4.8) Monocytes # (Auto) 1.3 x10^3/uL (0.0-1.1) Eosinophils # (Auto) 0.4 x10^3/uL (0.0-0.7) Basophils # (Auto) 0.1 x10^3/uL (0.0-0.2) Sodium Level 131 mmol/L (136-145) Potassium Level 3.8 mmol/L (3.5-5.1) Chloride Level 95 mmol/L (98-107) Carbon Dioxide Level 31 mmol/L (21-32) Anion Gap 5 (6-14) Blood Urea Nitrogen 24 mg/dL (8-26) Creatinine 1.2 mg/dL (0.7-1.3) Estimated GFR (Cockcroft-Gault) 59.9 Glucose Level 112 mg/dL (70-99) Calcium Level 8.3 mg/dL (8.5-10.1) Test 07/31/17 07:18 07/31/17 11:34 07/31/17 16:47 07/31/17 21:06 Glucose (Fingerstick) 144 mg/dL (70-99) 121 mg/dL (70-99) 134 mg/dL (70-99) 131 mg/dL (70-99) Test 08/01/17 05:25 08/01/17 06:50 White Blood Count 10.2 x10^3/uL (4.0-11.0) Red Blood Count 3.60 x10^6/uL (4.30-5.70) Hemoglobin 10.2 g/dL (13.0-17.5) Hematocrit 30.1 % (39.0-53.0) Mean Corpuscular Volume 84 fL (79-100) Mean Corpuscular Hemoglobin 28 pg (25-35) Mean Corpuscular Hemoglobin Concent 34 g/dL (31-37) Red Cell Distribution Width 14.5 % (11.5-14.5) Platelet Count 295 x10^3/uL (140-400) Neutrophils (%) (Auto) 74 % (31-73) Lymphocytes (%) (Auto) 10 % (24-48) Monocytes (%) (Auto) 11 % (0-9) Eosinophils (%) (Auto) 4 % (0-3) Basophils (%) (Auto) 1 % (0-3) Neutrophils # (Auto) 7.5 x10^3uL (1.8-7.7) Lymphocytes # (Auto) 1.0 x10^3/uL (1.0-4.8) Monocytes # (Auto) 1.2 x10^3/uL (0.0-1.1) Eosinophils # (Auto) 0.4 x10^3/uL (0.0-0.7) Basophils # (Auto) 0.1 x10^3/uL (0.0-0.2) Sodium Level 135 mmol/L (136-145) Potassium Level 4.1 mmol/L (3.5-5.1) Chloride Level 98 mmol/L (98-107) Carbon Dioxide Level 30 mmol/L (21-32) Anion Gap 7 (6-14) Blood Urea Nitrogen 17 mg/dL (8-26) Creatinine 0.9 mg/dL (0.7-1.3) Estimated GFR (Cockcroft-Gault) 83.4 Glucose Level 94 mg/dL (70-99) Calcium Level 8.4 mg/dL (8.5-10.1) Glucose (Fingerstick) 109 mg/dL (70-99) Laboratory Tests Test 07/31/17 11:34 07/31/17 16:47 07/31/17 21:06 08/01/17 05:25 Glucose (Fingerstick) 121 mg/dL (70-99) 134 mg/dL (70-99) 131 mg/dL (70-99) White Blood Count 10.2 x10^3/uL (4.0-11.0) Red Blood Count 3.60 x10^6/uL (4.30-5.70) Hemoglobin 10.2 g/dL (13.0-17.5) Hematocrit 30.1 % (39.0-53.0) Mean Corpuscular Volume 84 fL (79-100) Mean Corpuscular Hemoglobin 28 pg (25-35) Mean Corpuscular Hemoglobin Concent 34 g/dL (31-37) Red Cell Distribution Width 14.5 % (11.5-14.5) Platelet Count 295 x10^3/uL (140-400) Neutrophils (%) (Auto) 74 % (31-73) Lymphocytes (%) (Auto) 10 % (24-48) Monocytes (%) (Auto) 11 % (0-9) Eosinophils (%) (Auto) 4 % (0-3) Basophils (%) (Auto) 1 % (0-3) Neutrophils # (Auto) 7.5 x10^3uL (1.8-7.7) Lymphocytes # (Auto) 1.0 x10^3/uL (1.0-4.8) Monocytes # (Auto) 1.2 x10^3/uL (0.0-1.1) Eosinophils # (Auto) 0.4 x10^3/uL (0.0-0.7) Basophils # (Auto) 0.1 x10^3/uL (0.0-0.2) Sodium Level 135 mmol/L (136-145) Potassium Level 4.1 mmol/L (3.5-5.1) Chloride Level 98 mmol/L (98-107) Carbon Dioxide Level 30 mmol/L (21-32) Anion Gap 7 (6-14) Blood Urea Nitrogen 17 mg/dL (8-26) Creatinine 0.9 mg/dL (0.7-1.3) Estimated GFR (Cockcroft-Gault) 83.4 Glucose Level 94 mg/dL (70-99) Calcium Level 8.4 mg/dL (8.5-10.1) Test 08/01/17 06:50 Glucose (Fingerstick) 109 mg/dL (70-99) Microbiology 07/28/17 Blood Culture - Preliminary, Resulted NO GROWTH AFTER 3 DAYS Medications Current Medications Citalopram Hydrobromide (CeleXA) 20 mg BID PO Last administered on 07/31/17 22 :35; Start 07/25/17 at 21:00 Docusate Sodium (Colace) 100 mg BID PO Last administered on 07/31/17 22:35; Start 07/25/17 at 21:00 Gabapentin (Neurontin) 100 mg TID PO Last administered on 07/31/17 22:34; Start 07/25/17 at 21:00 Hydrochlorothiazide (Hydrodiuril) 25 mg DAILY PO Last administered on 08:30; Start 07/26/17 at 09:00; Stop 07/27/17 at 14:23; Status DC Acetaminophen/ Hydrocodone Bitart (Lortab 7.5/325) 1 tab PRN Q6HRS PRN PO PAIN Last administered on 07/30/17 16:37; Start 07/25/17 at 19:45; Stop 07/30/17 at 17:09; Status DC Metformin HCl (Glucophage) 1,000 mg DAILY08 PO Last administered on 07/31/17 17:19; Start 07/26/17 at 08:00 Metformin HCl (Glucophage) 500 mg DAILYBFRSUP PO Last administered on 17:00; Start 07/26/17 at 17:00 Methocarbamol (Robaxin) 750 mg TID PO Last administered on 07/26/17 08:38; Start 07/25/17 at 21:00; Stop 07/26/17 at 18:44; Status DC Potassium Chloride (Klor-Con) 10 meq DAILYWBKFT PO Last administered on 08:33; Start 07/26/17 at 08:00; Stop 07/26/17 at 08:55; Status DC Tamsulosin HCl (Flomax) 0.4 mg DAILY PO Last administered on 07/31/17 08:44; Start 07/26/17 at 09:00 Diclofenac Sodium (Voltaren) 75 mg BID PO Last administered on 07/28/17 09:04 ; Start 07/25/17 at 21:00; Stop 07/28/17 at 19:45; Status DC Fish Oil (Fish Oil) 1,000 mg BID PO Last administered on 07/31/17 22:35; Start 07/25/17 at 21:00 Fluticasone Propionate (Flonase) 2 spray DAILY NS Last administered on 09:06; Start 07/26/17 at 09:00 Glimepiride (Amaryl) 0.5 mg DAILY PO Last administered on 07/31/17 08:46; Start 07/26/17 at 09:00 Non-Formulary Medication 1 each BID PO ; Start 07/25/17 at 21:00; Status UNV Losartan Potassium (Cozaar) 100 mg DAILY PO Last administered on 07/31/17 08: 44; Start 07/26/17 at 09:00 Atorvastatin Calcium (Lipitor) 5 mg QHS PO Last administered on 07/31/17 22:34 ; Start 07/25/17 at 21:00 Metoprolol Tartrate (Lopressor) 50 mg BID PO Last administered on 07/31/17 22: 36; Start 07/25/17 at 21:00 Multivitamins (Thera M Plus) 1 tab DAILY PO Last administered on 07/31/17 08: 43; Start 07/26/17 at 09:00 Nifedipine (Procardia Xl) 90 mg DAILY PO Last administered on 07/31/17 08:43; Start 07/26/17 at 09:00 Sodium Chloride 1,000 ml @ 1,000 mls/hr 1X ONCE IV Last administered on 21:56; Start 07/25/17 at 19:45; Stop 07/25/17 at 20:44; Status DC Potassium Chloride (Klor-Con) 40 meq 1X ONCE PO Last administered on 21:41; Start 07/25/17 at 19:45; Stop 07/25/17 at 19:48; Status DC Sodium Chloride 1,000 ml @ 100 mls/hr 1X ONCE IV Last administered on 21:53; Start 07/25/17 at 19:45; Stop 07/26/17 at 05:44; Status DC Insulin Aspart (NovoLOG) 0-7 UNITS TIDWMEALS SQ Last administered on 07/30/17 17:31; Start 07/26/17 at 08:00 Dextrose (Dextrose 50%-Water Syringe) 12.5 gm PRN Q15MIN PRN IV SEE COMMENTS; Start 07/25/17 at 20:00 Info (Do NOT chart on this placeholder) 0.5 each 1X ONCE MC ; Start 07/26/17 at 09:00; Stop 07/26/17 at 09:01; Status UNV Influenza Virus Vaccine Quadrival (Fluarix Quad [id number] Syringe) 0.5 ml ONCE ONCE VAX IM Last administered on 07/28/17 09:31; Start 07/26/17 at 09:00; Stop 07/26/17 at 09:01; Status DC Albuterol/ Ipratropium (Duoneb) 3 ml RTQID NEB Last administered on 08/01/17 07:58; Start 07/26/17 at 08:00 Albuterol Sulfate (Ventolin Neb Soln) 2.5 mg PRN Q2HRS PRN NEB SHORTNESS OF BREATH Last administered on 07/26/17 02:00; Start 07/26/17 at 01:30 Enoxaparin Sodium (Lovenox 100mg Syringe) 100 mg 1X ONCE SQ Last administered on 07/26/17 02:08; Start 07/26/17 at 02:00; Stop 07/26/17 at 02:04; Status DC Heparin Sodium/ Dextrose 500 ml @ 0 mls/hr CONT PRN IV SEE I/O RECORD Last administered on 07/26/17 03:42; Start 07/26/17 at 03:30; Stop 07/28/17 at 08:16 ; Status DC Heparin Sodium (Porcine) (Heparin Sodium) 2,450 unit PRN Q6HRS PRN IV FOR UFH LEVEL LESS THAN 0.2; Start 07/26/17 at 03:30; Stop 07/28/17 at 08:16; Status DC Info (Anti-Coagulation Monitoring By Pharmacy) 1 each PRN DAILY PRN MC SEE COMMENTS Last administered on 07/27/17 10:04; Start 07/26/17 at 03:30; Stop at 08:16; Status DC Vancomycin HCl (Vanco Per Pharmacy) 1 each PRN DAILY PRN MC SEE COMMENTS Last administered on 07/28/17 00:18; Start 07/26/17 at 08:15; Stop 07/28/17 at 12:53 ; Status DC Meropenem 1 gm/ Sodium Chloride 100 ml @ 200 mls/hr Q8HRS IV Last administered on 07/29/17 05:54; Start 07/26/17 at 08:30; Stop 07/29/17 at 08:23 ; Status DC Vancomycin HCl 2 gm/Sodium Chloride 500 ml @ 250 mls/hr 1X ONCE IV Last administered on 07/26/17 09:27; Start 07/26/17 at 08:30; Stop 07/26/17 at 10:29 ; Status DC Potassium Chloride (Klor-Con) 40 meq DAILYWBKFT PO Last administered on 08:45; Start 07/26/17 at 09:30 Vancomycin HCl 1.25 gm/Sodium Chloride 250 ml @ 167 mls/hr Q12H IV Last administered on 07/27/17 21:37; Start 07/26/17 at 22:00; Stop 07/28/17 at 01:00 ; Status DC Vancomycin HCl 1 each 1X ONCE MC Last administered on 07/27/17 21:30; Start 07/27/17 at 21:30; Stop 07/27/17 at 21:31; Status DC Furosemide (Lasix) 40 mg 1X ONCE IVP Last administered on 07/26/17 11:47; Start 07/26/17 at 11:30; Stop 07/26/17 at 11:31; Status DC Gadobutrol (Gadavist) 10 mmol 1X ONCE IV Last administered on 07/26/17 16:19 ; Start 07/26/17 at 16:15; Stop 07/26/17 at 16:16; Status DC Morphine Sulfate 3 mg PRN Q3HRS PRN IV PAIN Last administered on 07/29/17 01: 45; Start 07/27/17 at 08:30 Morphine Sulfate 4 mg PRN Q3HRS PRN IV PAIN; Start 07/27/17 at 08:30 Morphine Sulfate 5 mg PRN Q3HRS PRN IV PAIN; Start 07/27/17 at 08:45 Gadobutrol (Gadavist) 9 mmol 1X ONCE IV Last administered on 07/27/17 10:37; Start 07/27/17 at 10:15; Stop 07/27/17 at 10:16; Status DC Furosemide (Lasix) 40 mg 1X ONCE IVP Last administered on 07/27/17 14:12; Start 07/27/17 at 14:00; Stop 07/27/17 at 14:01; Status DC Vancomycin HCl 1.5 gm/Sodium Chloride 500 ml @ 250 mls/hr Q24H IV ; Start 07/28 at 22:00; Stop 07/28/17 at 22:00; Status DC Vancomycin HCl 1 each 1X ONCE MC ; Start 07/30/17 at 21:30; Stop 07/30/17 at 21 :30; Status DC Acetaminophen (Tylenol) 650 mg PRN Q6HRS PRN PO FEVER > 100.5'F Last administered on 07/30/17 12:11; Start 07/28/17 at 05:30 Tamsulosin HCl (Flomax) 0.4 mg QHS PO ; Start 07/28/17 at 21:00; Status UNV Cefazolin Sodium/ Dextrose 50 ml @ 100 mls/hr Q8HRS IV Last administered on 06:15; Start 07/29/17 at 08:30 Polyethylene Glycol (miraLAX PACKET) 17 gm DAILY PO Last administered on 08:46; Start 07/29/17 at 09:00 Lorazepam (Ativan) 1 mg PRN Q4HRS PRN IV ANXIETY / AGITATION; Start 07/29/17 at 12:15 Furosemide (Lasix) 40 mg 1X ONCE IVP Last administered on 07/29/17 20:03; Start 07/29/17 at 19:45; Stop 07/29/17 at 19:46; Status DC Potassium Chloride (Klor-Con) 40 meq 1X ONCE PO Last administered on 12:10; Start 07/30/17 at 09:00; Stop 07/30/17 at 09:01; Status DC Magnesium Citrate (Citroma) 296 ml PRN 1X PRN PO CONSTIPATION Last administered on 07/31/17 09:06; Start 07/30/17 at 11:15 Furosemide (Lasix) 40 mg 1X ONCE IVP Last administered on 07/30/17 14:16; Start 07/30/17 at 12:30; Stop 07/30/17 at 12:31; Status DC Acetaminophen/ Hydrocodone Bitart (Lortab 7.5/325) 1 tab PRN Q4HRS PRN PO PAIN Last administered on 07/31/17 22:35; Start 07/30/17 at 17:15 Sodium Chloride 1,000 ml @ 75 mls/hr [id number] IV Last administered on 04:58; Start 07/31/17 at 11:15 Active Scripts Active Colace (Docusate Sodium) 100 Mg Capsule 100 Mg PO BID 60 Days Methocarbamol 750 Mg Tablet 750 Mg PO TID 60 Days Hydrocodone-Apap 7.5-325 (Hydrocodone Bit/Acetaminophen) 1 Each Tablet 1 Tab PO PRN Q6HRS PRN 60 Days Reported Tamsulosin Hcl 0.4 Mg Cap.er.24h 0.4 Mg PO DAILY Metformin Hcl 500 Mg Tablet 500 Mg PO DAILYBFRSUP Gabapentin 100 Mg Capsule 100 Mg PO TID Lovastatin 20 Mg Tablet 1 Tab PO DAILY Jtngvaeujb-Ymypctycner-Pus Tab (Gluc/Jonah-Msm#2/C/D3/Vidal/Born) 1 Each Tablet 1 Each PO BID Glimepiride 1 Mg Tablet 0.5 Tab PO DAILY Losartan Potassium 100 Mg Tablet 100 Mg PO DAILY Diclofenac Sodium 75 Mg Tablet.dr 75 Mg PO BID Nitrostat (Nitroglycerin) 0.4 Mg Tab.subl 0.4 Mg SL PRN Viagra (Sildenafil Citrate) 100 Mg Tablet 100 Mg PO PRN Potassium Chloride 10 Meq Tablet.er 10 Meq PO DAILY Metformin Hcl 1,000 Mg Tablet 1,000 Mg PO DAILY08 Hydrochlorothiazide Tablet (Hydrochlorothiazide) 25 Mg Tablet 25 Mg PO DAILY Metoprolol Tartrate 100 Mg Tablet 50 Mg PO BID Flovent 50MCG Diskus (Fluticasone Propionate) 50 Mcg Disk.w.dev 50 Mcg IH DAILY Citalopram Hbr (Citalopram Hydrobromide) 20 Mg Tablet 20 Mg PO BID Nifedipine Er (Nifedipine) 90 Mg Tab.er.24 90 Mg PO DAILY Multivitamins (Multivitamin) 1 Each Tablet 1 Each PO DAILY Fish Oil 1,200 Mg Fish Oil (Fish Oil/Dha/Epa) 1 Each Capsule 1 Each PO BID Vitals/I & O Vital Sign - Last 24 Hours 07/31/17 07/31/17 07/31/17 07/31/17 08:00 08:43 08:44 08:44 Pulse 85 85 Resp 20 B/P (MAP) 150/82 150/82 Pulse Ox 92 O2 Delivery Nasal Cannula Nasal Cannula O2 Flow Rate 2.0 2.0 07/31/17 07/31/17 07/31/17 07/31/17 08:46 09:50 10:49 10:50 Temp 98.4 98.4 Pulse 85 75 Resp 17 B/P (MAP) 150/82 146/77 (100) Pulse Ox 93 94 96 O2 Delivery Nasal Cannula Nasal Cannula O2 Flow Rate 3.0 2.0 07/31/17 07/31/17 07/31/17 07/31/17 14:22 14:51 17:23 19:51 Temp 98.5 99.0 98.5 99.0 Pulse 70 75 Resp 17 20 16 B/P (MAP) 131/79 (96) 128/68 (88) Pulse Ox 94 93 91 O2 Delivery Nasal Cannula Nasal Cannula Nasal Cannula Nasal Cannula O2 Flow Rate 3.0 2.0 2.0 2.0 07/31/17 07/31/17 07/31/17 07/31/17 20:00 20:10 22:35 22:36 Pulse 75 Resp 16 B/P (MAP) 128/68 O2 Delivery Nasal Cannula Nasal Cannula Nasal Cannula O2 Flow Rate 2.0 2.0 2.0 07/31/17 07/31/17 08/01/17 08/01/17 23:32 23:50 03:39 06:48 Temp 99.0 99.0 99.1 99.0 99.0 99.1 Pulse 80 92 72 Resp 16 16 16 18 B/P (MAP) 129/64 (85) 113/68 (83) 153/76 (101) Pulse Ox 91 90 92 O2 Delivery Nasal Cannula Nasal Cannula Nasal Cannula Nasal Cannula O2 Flow Rate 2.0 2.0 2.0 2.0 STEPHANIA BARKSDALE MD Aug 01, 2017 08:00
[2017-08-01] MEDS: OMEGA-3 FATTY ACIDS/FISH OIL 1,000 MG CAPSULE. PO SCH (08:31)
[2017-08-01] MEDS: POTASSIUM CHLORIDE 20 MEQ TABLET.ER. PO SCH (08:32)
[2017-08-01] MEDS: DOCUSATE SODIUM 100 MG CAPSULE. PO SCH (08:33)
[2017-08-01] MEDS: MULTIVITAMIN with MINERAL TABLET. PO SCH (08:33)
[2017-08-01] MEDS: METOPROLOL TART IMMED RELEASE 50 MG TABLET. PO SCH (08:34)
[2017-08-01] MEDS: GLIMEPIRIDE 2 MG TABLET. PO SCH (08:34)
[2017-08-01] MEDS: LOSARTAN POTASSIUM 50 MG TABLET. PO SCH (08:35)
[2017-08-01] MEDS: CITALOPRAM 20 MG TABLET. PO SCH (08:35)
[2017-08-01] MEDS: HYDROcodone/APAP 7.5/325MG 1 TAB TABLET PO PRN (08:35)
[2017-08-01] MEDS: GABAPENTIN 100 MG CAPSULE. PO SCH ×2 (08:35→14:27)
[2017-08-01] MEDS: TAMSULOSIN 0.4 MG CAP.ER.24H. PO SCH (08:36)
[2017-08-01] MEDS: FLUTICASONE 50MCG/NASAL SPRAY 16GM BOTTLE. NS SCH (08:36)
[2017-08-01] MEDS: POLYETHYLENE GLYCOL 3350 17 GM PACKET. PO SCH (08:36)
--- NOTE | 2017-08-01 09:22 | PDOC ---
Infectious Disease Note Subjective Subjective Better. Ambulated in halls yesterday Still some back pain 05/05 at times No BM but + flatus ROS ROS GEN: Denies fevers, chills, sweats HEENT: Denies blurred vision, sore throat CV: Denies chest pain RESP: Denies shortness of air, cough GI: Denies n/v/d NEURO: Denies confusion, dizziness MSK: Denies weakness, joint pain/swelling Vital Sign Vital Signs Vital Signs Date Time Temp Pulse Resp B/P (MAP) Pulse Ox O2 Delivery O2 Flow Rate FiO2 08/01/17 08:35 97 Nasal Cannula 2.0 08/01/17 08:35 72 153/76 08/01/17 06:48 99.1 18 99.1 Physical Exam PHYSICAL EXAM GENERAL: NAD, Alert,inbed HEENT: PERRL, OC/OP- clear NECK: Supple, no JVD, no LN LUNGS: Clear HEART: S1S2, no gallop, no murmur ABD: Soft,less distended. 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 x 3, no focal neurologic deficit SKIN: No rash IV: ok Labs Lab Laboratory Tests Test 07/31/17 11:34 07/31/17 16:47 07/31/17 21:06 08/01/17 05:25 Glucose (Fingerstick) 121 mg/dL (70-99) 134 mg/dL (70-99) 131 mg/dL (70-99) White Blood Count 10.2 x10^3/uL (4.0-11.0) Red Blood Count 3.60 x10^6/uL (4.30-5.70) Hemoglobin 10.2 g/dL (13.0-17.5) Hematocrit 30.1 % (39.0-53.0) Mean Corpuscular Volume 84 fL (79-100) Mean Corpuscular Hemoglobin 28 pg (25-35) Mean Corpuscular Hemoglobin Concent 34 g/dL (31-37) Red Cell Distribution Width 14.5 % (11.5-14.5) Platelet Count 295 x10^3/uL (140-400) Neutrophils (%) (Auto) 74 % (31-73) Lymphocytes (%) (Auto) 10 % (24-48) Monocytes (%) (Auto) 11 % (0-9) Eosinophils (%) (Auto) 4 % (0-3) Basophils (%) (Auto) 1 % (0-3) Neutrophils # (Auto) 7.5 x10^3uL (1.8-7.7) Lymphocytes # (Auto) 1.0 x10^3/uL (1.0-4.8) Monocytes # (Auto) 1.2 x10^3/uL (0.0-1.1) Eosinophils # (Auto) 0.4 x10^3/uL (0.0-0.7) Basophils # (Auto) 0.1 x10^3/uL (0.0-0.2) Sodium Level 135 mmol/L (136-145) Potassium Level 4.1 mmol/L (3.5-5.1) Chloride Level 98 mmol/L (98-107) Carbon Dioxide Level 30 mmol/L (21-32) Anion Gap 7 (6-14) Blood Urea Nitrogen 17 mg/dL (8-26) Creatinine 0.9 mg/dL (0.7-1.3) Estimated GFR (Cockcroft-Gault) 83.4 Glucose Level 94 mg/dL (70-99) Calcium Level 8.4 mg/dL (8.5-10.1) Test 08/01/17 06:50 Glucose (Fingerstick) 109 mg/dL (70-99) Objective Assessment Staph aureus (MSSA ID'd 07/28 afternoon. Vanc d/cd) bacteremia, POA, 07/25. ECHO without gross valvular disease 07/28 Fever ? infection vs cardiac event. - better Leukocytosis - better Encephalopathy - ? illness vs meds - improving Constipation - still an issue Urinary retention - ortiz placed 07/27 Elevated Troponin/CK- NSTEMI Back pain and h/o MSSA infection. s/p fall prior to admit now with fluid collection on MRI. Reviewed Dr. Gu's note PCN allergy - tolerated Cefazolin Hyponatremia - better Plan Plan of Care PICC line today Ok for heart cath from ID standpoint Repeat blood cult pending from 07/28 am - neg so far Relieve constipation Cont Cefazolin will need min 6 weeks bilingual social worker for d/c planning Miralax Monitor renal function, WBC and temp D/w JANEE HSIEH MD Aug 01, 2017 09:22
[2017-08-01] MEDS ORDERED: BISACODYL 10 MG SUPP.RECT. PR ONE (10:00)
--- NOTE | 2017-08-01 10:12 | PDOC ---
PROGRESS NOTES Chief Complaint Chief Complaint ASSESSMENT AND PLAN: 1. Back pain: recent back sx complicated by wound infection. appreciate Dr Gu's input 2. SIRS POA: likely infectious no organ dysfxn 3. Encephalopathy vs early dementia: no infectious signs MRI with age related atrophy, no acute abn. appreciate Dr Faulkner's input 4. MSSA bacteremia: also fluid collection at surgical site with hx MSSA. cefazolin x6 weeks as per Dr Mead. PICC pending 5. NSTEMI: asymptomatic. d/w Dr Lopez: planned cath in near future on O /P basis 6. Hypoxic respir failure: V/Q with low prob. hypoxia resolved 7. HTN/HLD: continue 2ary prevention meds 8. DM2: very well controlled on current regimen 9. OA: chronic; exacerbated by recent falls. 10. Constipation: on oral bowel regimen; add MA PRN 11. Polypharmacy - on 22 home meds 12. Dispo: to SNF today History of Present Illness History of Present Illness pain in pelvic region bilat and low back. appetite good. no CP or SOB Vitals Vitals Vital Signs Date Time Temp Pulse Resp B/P (MAP) Pulse Ox O2 Delivery O2 Flow Rate FiO2 08/01/17 08:35 97 Nasal Cannula 2.0 08/01/17 08:35 72 153/76 08/01/17 06:48 99.1 18 99.1 Physical Exam General: Alert, Oriented X3, Cooperative, No acute distress Heart: Regular rate Lungs: Clear Abdomen: Normal bowel sounds, Soft, No tenderness, Other (mild distension) Extremities: No clubbing, No cyanosis, No edema Skin: No rashes Labs LABS Laboratory Tests Test 07/31/17 11:34 07/31/17 16:47 07/31/17 21:06 08/01/17 05:25 Glucose (Fingerstick) 121 mg/dL (70-99) 134 mg/dL (70-99) 131 mg/dL (70-99) White Blood Count 10.2 x10^3/uL (4.0-11.0) Red Blood Count 3.60 x10^6/uL (4.30-5.70) Hemoglobin 10.2 g/dL (13.0-17.5) Hematocrit 30.1 % (39.0-53.0) Mean Corpuscular Volume 84 fL (79-100) Mean Corpuscular Hemoglobin 28 pg (25-35) Mean Corpuscular Hemoglobin Concent 34 g/dL (31-37) Red Cell Distribution Width 14.5 % (11.5-14.5) Platelet Count 295 x10^3/uL (140-400) Neutrophils (%) (Auto) 74 % (31-73) Lymphocytes (%) (Auto) 10 % (24-48) Monocytes (%) (Auto) 11 % (0-9) Eosinophils (%) (Auto) 4 % (0-3) Basophils (%) (Auto) 1 % (0-3) Neutrophils # (Auto) 7.5 x10^3uL (1.8-7.7) Lymphocytes # (Auto) 1.0 x10^3/uL (1.0-4.8) Monocytes # (Auto) 1.2 x10^3/uL (0.0-1.1) Eosinophils # (Auto) 0.4 x10^3/uL (0.0-0.7) Basophils # (Auto) 0.1 x10^3/uL (0.0-0.2) Sodium Level 135 mmol/L (136-145) Potassium Level 4.1 mmol/L (3.5-5.1) Chloride Level 98 mmol/L (98-107) Carbon Dioxide Level 30 mmol/L (21-32) Anion Gap 7 (6-14) Blood Urea Nitrogen 17 mg/dL (8-26) Creatinine 0.9 mg/dL (0.7-1.3) Estimated GFR (Cockcroft-Gault) 83.4 Glucose Level 94 mg/dL (70-99) Calcium Level 8.4 mg/dL (8.5-10.1) Test 08/01/17 06:50 Glucose (Fingerstick) 109 mg/dL (70-99) AUGUST CONNOLLY MD Aug 01, 2017 10:12
[2017-08-01 10:34] VITALS: BP 148/76
[2017-08-01] MEDS ORDERED: HYDR-2762 PO (11:19)
--- NOTE | 2017-08-01 13:24 | PDOC ---
PULMONARY PROGRESS NOTES Subjective feels better today Vitals Vital Signs Date Time Temp Pulse Resp B/P (MAP) Pulse Ox O2 Delivery O2 Flow Rate FiO2 08/01/17 12:50 Nasal Cannula 2.0 08/01/17 10:47 91 08/01/17 10:34 98.5 66 18 148/76 (100) 98.5 General: Alert, No acute distress Lungs: Clear Cardiovascular: S1, S2 Abdomen: Soft Extremities: No Edema Skin: Warm Labs Laboratory Tests Test 07/30/17 16:54 07/30/17 21:10 07/31/17 03:45 07/31/17 07:18 Glucose (Fingerstick) 175 mg/dL (70-99) 161 mg/dL (70-99) 144 mg/dL (70-99) White Blood Count 9.5 x10^3/uL (4.0-11.0) Red Blood Count 3.57 x10^6/uL (4.30-5.70) Hemoglobin 10.1 g/dL (13.0-17.5) Hematocrit 29.5 % (39.0-53.0) Mean Corpuscular Volume 83 fL (79-100) Mean Corpuscular Hemoglobin 28 pg (25-35) Mean Corpuscular Hemoglobin Concent 34 g/dL (31-37) Red Cell Distribution Width 14.2 % (11.5-14.5) Platelet Count 256 x10^3/uL (140-400) Neutrophils (%) (Auto) 72 % (31-73) Lymphocytes (%) (Auto) 10 % (24-48) Monocytes (%) (Auto) 13 % (0-9) Eosinophils (%) (Auto) 4 % (0-3) Basophils (%) (Auto) 1 % (0-3) Neutrophils # (Auto) 6.8 x10^3uL (1.8-7.7) Lymphocytes # (Auto) 0.9 x10^3/uL (1.0-4.8) Monocytes # (Auto) 1.3 x10^3/uL (0.0-1.1) Eosinophils # (Auto) 0.4 x10^3/uL (0.0-0.7) Basophils # (Auto) 0.1 x10^3/uL (0.0-0.2) Sodium Level 131 mmol/L (136-145) Potassium Level 3.8 mmol/L (3.5-5.1) Chloride Level 95 mmol/L (98-107) Carbon Dioxide Level 31 mmol/L (21-32) Anion Gap 5 (6-14) Blood Urea Nitrogen 24 mg/dL (8-26) Creatinine 1.2 mg/dL (0.7-1.3) Estimated GFR (Cockcroft-Gault) 59.9 Glucose Level 112 mg/dL (70-99) Calcium Level 8.3 mg/dL (8.5-10.1) Test 07/31/17 11:34 07/31/17 16:47 07/31/17 21:06 08/01/17 05:25 Glucose (Fingerstick) 121 mg/dL (70-99) 134 mg/dL (70-99) 131 mg/dL (70-99) White Blood Count 10.2 x10^3/uL (4.0-11.0) Red Blood Count 3.60 x10^6/uL (4.30-5.70) Hemoglobin 10.2 g/dL (13.0-17.5) Hematocrit 30.1 % (39.0-53.0) Mean Corpuscular Volume 84 fL (79-100) Mean Corpuscular Hemoglobin 28 pg (25-35) Mean Corpuscular Hemoglobin Concent 34 g/dL (31-37) Red Cell Distribution Width 14.5 % (11.5-14.5) Platelet Count 295 x10^3/uL (140-400) Neutrophils (%) (Auto) 74 % (31-73) Lymphocytes (%) (Auto) 10 % (24-48) Monocytes (%) (Auto) 11 % (0-9) Eosinophils (%) (Auto) 4 % (0-3) Basophils (%) (Auto) 1 % (0-3) Neutrophils # (Auto) 7.5 x10^3uL (1.8-7.7) Lymphocytes # (Auto) 1.0 x10^3/uL (1.0-4.8) Monocytes # (Auto) 1.2 x10^3/uL (0.0-1.1) Eosinophils # (Auto) 0.4 x10^3/uL (0.0-0.7) Basophils # (Auto) 0.1 x10^3/uL (0.0-0.2) Sodium Level 135 mmol/L (136-145) Potassium Level 4.1 mmol/L (3.5-5.1) Chloride Level 98 mmol/L (98-107) Carbon Dioxide Level 30 mmol/L (21-32) Anion Gap 7 (6-14) Blood Urea Nitrogen 17 mg/dL (8-26) Creatinine 0.9 mg/dL (0.7-1.3) Estimated GFR (Cockcroft-Gault) 83.4 Glucose Level 94 mg/dL (70-99) Calcium Level 8.4 mg/dL (8.5-10.1) Test 08/01/17 06:50 Glucose (Fingerstick) 109 mg/dL (70-99) Laboratory Tests Test 07/31/17 16:47 07/31/17 21:06 08/01/17 05:25 08/01/17 06:50 Glucose (Fingerstick) 134 mg/dL (70-99) 131 mg/dL (70-99) 109 mg/dL (70-99) White Blood Count 10.2 x10^3/uL (4.0-11.0) Red Blood Count 3.60 x10^6/uL (4.30-5.70) Hemoglobin 10.2 g/dL (13.0-17.5) Hematocrit 30.1 % (39.0-53.0) Mean Corpuscular Volume 84 fL (79-100) Mean Corpuscular Hemoglobin 28 pg (25-35) Mean Corpuscular Hemoglobin Concent 34 g/dL (31-37) Red Cell Distribution Width 14.5 % (11.5-14.5) Platelet Count 295 x10^3/uL (140-400) Neutrophils (%) (Auto) 74 % (31-73) Lymphocytes (%) (Auto) 10 % (24-48) Monocytes (%) (Auto) 11 % (0-9) Eosinophils (%) (Auto) 4 % (0-3) Basophils (%) (Auto) 1 % (0-3) Neutrophils # (Auto) 7.5 x10^3uL (1.8-7.7) Lymphocytes # (Auto) 1.0 x10^3/uL (1.0-4.8) Monocytes # (Auto) 1.2 x10^3/uL (0.0-1.1) Eosinophils # (Auto) 0.4 x10^3/uL (0.0-0.7) Basophils # (Auto) 0.1 x10^3/uL (0.0-0.2) Sodium Level 135 mmol/L (136-145) Potassium Level 4.1 mmol/L (3.5-5.1) Chloride Level 98 mmol/L (98-107) Carbon Dioxide Level 30 mmol/L (21-32) Anion Gap 7 (6-14) Blood Urea Nitrogen 17 mg/dL (8-26) Creatinine 0.9 mg/dL (0.7-1.3) Estimated GFR (Cockcroft-Gault) 83.4 Glucose Level 94 mg/dL (70-99) Calcium Level 8.4 mg/dL (8.5-10.1) Medications Active Scripts Medications Dose Route/Sig Max Daily Dose Days Date Category Tamsulosin Hcl 0.4 Mg Cap.er.24h 0.4 Mg PO DAILY 03/31/17 Reported Metformin Hcl 500 Mg Tablet 500 Mg PO DAILYBFRSUP 03/31/17 Reported Colace (Docusate Sodium) 100 Mg Capsule 100 Mg PO BID 60 03/08/17 Rx Methocarbamol 750 Mg Tablet 750 Mg PO TID 60 03/08/17 Rx Hydrocodone-Apap 7.5-325 (Hydrocodone Bit/Acetaminophen) 1 Each Tablet 1 Tab PO PRN Q6HRS PRN 60 03/08/17 Rx Gabapentin 100 Mg Capsule 100 Mg PO TID 01/27/17 Reported Lovastatin 20 Mg Tablet 1 Tab PO DAILY 01/27/17 Reported Ujzqybgaml-Syhcjdemptz-Pee Tab (Gluc/Jonah-Msm#2/C/D3/Vidal/Born) 1 Each Tablet 1 Each PO BID 07/17/15 Reported Glimepiride 1 Mg Tablet 0.5 Tab PO DAILY 07/17/15 Reported Losartan Potassium 100 Mg Tablet 100 Mg PO DAILY 01/10/14 Reported Diclofenac Sodium 75 Mg Tablet.dr 75 Mg PO BID 01/10/14 Reported Nitrostat (Nitroglycerin) 0.4 Mg Tab.subl 0.4 Mg SL PRN 01/10/14 Reported Viagra (Sildenafil Citrate) 100 Mg Tablet 100 Mg PO PRN 01/10/14 Reported Potassium Chloride 10 Meq Tablet.er 10 Meq PO DAILY 01/10/14 Reported Metformin Hcl 1,000 Mg Tablet 1,000 Mg PO DAILY08 01/10/14 Reported Hydrochlorothiazide Tablet (Hydrochlorothiazide) 25 Mg Tablet 25 Mg PO DAILY 01/10/14 Reported Metoprolol Tartrate 100 Mg Tablet 50 Mg PO BID 01/10/14 Reported Flovent 50MCG Diskus (Fluticasone Propionate) 50 Mcg Disk.w.dev 50 Mcg IH DAILY 01/10/14 Reported Citalopram Hbr (Citalopram Hydrobromide) 20 Mg Tablet 20 Mg PO BID 01/10/14 Reported Nifedipine Er (Nifedipine) 90 Mg Tab.er.24 90 Mg PO DAILY 01/10/14 Reported Multivitamins (Multivitamin) 1 Each Tablet 1 Each PO DAILY 01/10/14 Reported Fish Oil 1,200 Mg Fish Oil (Fish Oil/Dha/Epa) 1 Each Capsule 1 Each PO BID 01/10/14 Reported Impression . 1. Acute hypoxic respiratory failure secondary ACUTE CHF/ cxr 07/29 with CHF 2. Acute non-ST myocardial infarction with markedly elevated troponin levels. 3. Acute encephalopathy METABOLIC/TOXIC?/ resolved 4. Increased CPK secondary to rhabdomyolysis. 5. Syncope secondary to myocardial infarction. 6. No significant history of tobacco use. 7. Leukocytosis. The patient had recent back surgery and had staph infection. now with Staph bacteremia 8. No evidence of PE by VQ Plan . FEELS BETTER CXR F/U POST DIURESIS MUCH BETTER PT HAS HAD A SLEEP STUDY IN PAST ,NO ESPERANZA ANITBX PER ID NEEDS PT SPOKE WITH CATH DOWN THE ROAD KIM HAJI MD Aug 01, 2017 13:24
[2017-08-01] MEDS ORDERED: LIDOCAINE 1% / SOD BICARB 8.4% 20 ML VIAL. IJ ONE ×2 (13:27→13:30)
--- NOTE | 2017-08-01 13:44 | PDOC1 ---
IR Pre-Procedure H&P H&P Update No significant change from Dr. Brenner admtheresa H&P done 07/25/17. HIRA SCHWARTZ MD Aug 01, 2017 13:44
[2017-08-01] MEDS ORDERED: 0.9 % SODIUM CHLORIDE 10 ML DISP.SYRIN. IV PRN ×3 (14:00)
--- NOTE | 2017-08-01 14:01 | PDOC ---
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
--- NOTE | 2017-08-01 14:16 | RAD ---
Procedure: ultrasound and fluoroscopic guided PICC placement. The procedure risk and complications to include bleeding, infection and arrhythmia, were discussed at length with the patient, and they understood and wished to proceed. All questions were answered. Consent form signed. The right upper extremity was prepped and draped using maximal sterile technique and 1% Xylocaine was used for local anesthesia. Ultrasound-guided access: The arm was scanned by ultrasound and the right brachial vein is patent and compressible. Under ultrasound guidance, a single wall puncture was made into the brachial vein followed by tract dilation and careful guidewire and sheath placement. An ultrasound image was saved and sent to PACS. The 5-Amharic dual lumen PICC line catheter was measured under fluoroscopic guidance and cut to 37 cm. The PICC line was placed with the tip in the superior cavoatrial junction. Line was flushed with 100 units per milliliter heparin. Chest x-ray: PICC line is in a satisfactory location. Complication: None Fluoroscopy time 1.2 mins DAP: 2 Gycm2 Contrast: None Sedation: None The patient tolerated the procedure well and returned to the floor in a stable condition. Conclusion: Successful right arm dual lumen 39- cm long right brachial vein PICC placement with ultrasound and fluoroscopic guidance.
[2017-08-01] MEDS: MAGNESIUM CITRATE 296 ML SOLUTION. PO PRN (14:28)
[2017-08-01 14:51] VITALS: BP 143/78
--- NOTE | 2017-08-04 15:19 | DS ---
DATE OF DISCHARGE: 08/01/2017 CHIEF COMPLAINT: Mental status changes. HOSPITAL COURSE: The patient is a 72-year-old gentleman who presented with vague mental status changes and neurological symptoms. He had undergone recent back surgery, which has been complicated by wound infection. Encephalopathy initially was attributed to possible infection, although no signs on MRI indicated any such event. Dr. Gu as well as Dr. Lara were consulted. The patient, however, was found with MSSA bacteremia and was therefore started on cefazolin and surgical site was thought to be the etiology. A PICC line was placed prior to discharge. During his admission, he was found with a mildly elevated troponin. 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 Lopez and a catheterization is planned in the near future once infectious issues are resolved. Because of hypoxic respiratory failure, a V/Q scan was obtained and Dr. Cid followed the patient. PE was essentially ruled out and hypoxia spontaneously resolved. His other home medications for multiple other medical issues were continued. The patient was deemed appropriate for a rehab placement on the . PHYSICAL EXAM: Vital signs: BP 153/76 69 18 afeb General: Alert, Oriented X3, Cooperative, No acute distress Heart: Regular rate Lungs: Clear Abdomen: Normal bowel sounds, Soft, No tenderness, Other (mild distension) Extremities: No clubbing, No cyanosis, No edema Skin: No rashes DISCHARGE DIAGNOSES: Methicillin-susceptible Staphylococcus aureus bacteremia, non-ST elevation myocardial infarction. DISCHARGE DISPOSITION: To SNF. DISCHARGE CONDITION: Improved. DISCHARGE MEDICATIONS: Please refer to MAR. DISCHARGE INSTRUCTIONS: The patient will follow up with PCP after returning to home. Greater than 30 minutes were spent in arranging discharge for this patient. AUGUST CONNOLLY MD DR: UR/nts JOB#: [id number] / [id number] FEDERICO Evans MD MTDD
--- NOTE | 2017-08-14 12:27 | DS ---
DATE OF DISCHARGE: 08/01/2017 DATE OF ADMISSION: 07/26/2017 DATE OF DISCHARGE: 08/01/2017 ADMISSION DIAGNOSES: Mental status change, elevated troponin, suspect myocardial infarction. DISCHARGE DIAGNOSES: Resolving mental status change, resolving myocardial infarction with metabolic encephalopathy. HOSPITAL COURSE: The patient is a pleasant 72-year-old male who was found in his room, he was shaking. He was brought in. He had an elevated troponin. We admitted the patient. We consulted cardiology. I believe he went for a cardiac catheterization. Post-procedure, he is doing well. He is still a little confused. We plan to discharge to halfway facility. DISPOSITION: shelter facility. ACTIVITY: As tolerated. DIET: Low sodium. MEDICATIONS: Please see the MRAD. TOTAL TIME ON DISCHARGE: 33 minutes. LISBETH OLIVA DO DR: DEMI/terri JOB#: [id number] / [id number]
--- NOTE | 2017-08-14 12:39 | DS ---
DATE OF DISCHARGE: 08/01/2017 ADMISSION DIAGNOSES: Mental status change with encephalopathy and urinary tract infection. DISCHARGE DIAGNOSES: Resolving mental status change, resolving metabolic encephalopathy. LISBETH OLIVA DO DR: Oscar JOB#: [id number] / [id number]
[2017-09-22] MEDS ORDERED: CRESTOR5 MG PO (14:33)
[2017-09-23] MEDS ORDERED: ATOR10TA PO (14:06)
[2017-09-23] MEDS ORDERED: ACET500T68 PO (14:06)
[2017-09-23] MEDS ORDERED: TIZA4TAB PO (14:06)
[2017-09-23] MEDS ORDERED: CHOL10003 PO (14:06)
[2017-09-23] MEDS ORDERED: MENT118G TP (14:06)
[2017-09-23] MEDS ORDERED: ACET650S11 RC (14:06)
[2017-09-23] MEDS ORDERED: POLY119P4 PO (14:06)
[2017-09-23] MEDS ORDERED: ALBU2.5V5 NEB (14:06)
[2017-09-23] MEDS ORDERED: LIDO700A39 TP (14:06)
[2017-09-23] MEDS ORDERED: MAGN296S9 PO (14:06)
[2017-09-23] MEDS ORDERED: POTA10TA5 PO (14:06)
[2017-09-23] MEDS ORDERED: RIFA300C3 PO (14:06)
[2017-09-23] MEDS ORDERED: CEFA2PIG IV (14:06)
== END 2017-08-01 14:45 | DRG 871 ==
LOC: ER 17:11 → 6 SOUTH 18:15 → 1 WEST ICU 07-26 02:43 → OBSVTOIN 07-26 21:07 → 6 SOUTH 07-28 16:00
PROVIDERS: ADMIT Internal Medicine; ATTEND Internal Medicine
PROC: 02HV33Z Insertion of Infusion Device into Superior Vena Cava, Percutaneous Approach (ICD-10-PCS; principal; 2017-08-01)
PROC: B5181ZA Fluoroscopy of Superior Vena Cava using Low Osmolar Contrast, Guidance (ICD-10-PCS; 2017-08-01)
PROC: 5A09357 Assistance with Respiratory Ventilation, Less than 24 Consecutive Hours, Continuous Positive Airway Pressure (ICD-10-PCS; 2017-08-01)
DX: A41.02 Sepsis due to Methicillin resistant Staphylococcus aureus (principal); I21.4 Non-ST elevation (NSTEMI) myocardial infarction; J96.01 Acute respiratory failure with hypoxia; G93.41 Metabolic encephalopathy; N17.9 Acute kidney failure, unspecified; E87.1 Hypo-osmolality and hyponatremia; M62.82 Rhabdomyolysis; E11.9 Type 2 diabetes mellitus without complications; I50.9 Heart failure, unspecified; I11.0 Hypertensive heart disease with heart failure; F03.90 Unspecified dementia, unspecified severity, without behavioral disturbance, psychotic disturbance, mood disturbance, and anxiety; Z88.8 Allergy status to other drugs, medicaments and biological substances; E78.5 Hyperlipidemia, unspecified; E87.6 Hypokalemia; F32.9 Major depressive disorder, single episode, unspecified; G89.29 Other chronic pain; K59.00 Constipation, unspecified; M10.9 Gout, unspecified; N40.1 Benign prostatic hyperplasia with lower urinary tract symptoms; Z82.49 Family history of ischemic heart disease and other diseases of the circulatory system; Z85.820 Personal history of malignant melanoma of skin; Z87.891 Personal history of nicotine dependence; Z88.0 Allergy status to penicillin; Z95.5 Presence of coronary angioplasty implant and graft; M19.90 Unspecified osteoarthritis, unspecified site
CPT/HCPCS: 36415; 36569; 36600; 70450; 70553; 71010; 72158; 76937; 77001; 78582; 80048; 80053; 80061; 80076; 80202; 80307; 81001; 82550; 82553; 82607; 82746; 82805; 82962; 83605; 83690; 83735; 83880; 84100; 84443; 84484; 85007; 85025; 85027; 85379; 85520; 85610; 87040; 87205; 87641; 90686; 93005; 93306; 93970; 94250; 94640; 94660; 94760; 96374; A9540; A9558; A9585; C1751; C1892; G0378; G0379; G0480; J0690; J1644; J1650; J1815; J1940; J2185; J2270; J3370; J7030; J7040; J7050; J7613; J7620; 92523; 97110; 97116; 97530; 97535; 99285-25; G0479

== ENCOUNTER → 2017-08-20 | Outpatient (CLI) | payer MEDICARE, OTHER ==
[2017-08-01 14:51] VITALS: BP 143/78
[~2017-08-20] MED LIST changes: +GADOBUTROL 10 MMOL/10 ML VIAL IV ONE; +METO100T2 PO; -METO100T7 PO
--- NOTE | 2017-08-20 14:24 | KCIC ---
EXAM: Lumbar spine MRI without and with contrast. HISTORY: Lower back pain. Staph infection. TECHNIQUE: Multiplanar, multisequence magnetic resonance imaging of the lumbar spine was performed prior to and following the administration of 9 cc Gadavist intravenous contrast. COMPARISON: 02/05/2017 FINDINGS: There is mild lumbar scoliosis. There is 3 mm retrolisthesis of L3 on L4 and 2 mm retrolisthesis of L5 on S1. There is degenerative endplate remodeling with disc space narrowing and osteophytosis primarily at L3-S1. There are multiple endplate Schmorl's nodes. There are multiple vertebral body hemangiomas. There is edema within the majority of the L5 vertebral body and right L5 pedicle as well as the posterior inferior aspect of the L4 vertebral body and right L4 pedicle. There are T2 hyperintense lesions with increased signal on inversion recovery images within the posterior aspect of L2, anterior aspect of T12, mid aspect of T11 and left T11 suspected, likely atypical hemangiomas. There is edema surrounding and inferior endplate Schmorl's node at L3, favoring a relatively recent etiology. The conus terminates at L1-L2. There is a small renal cysts. There is a 4 mm hypointense lesion within the right kidney, likely a hemorrhagic cyst or calcification. At L1-L2, there is minimal facet arthropathy. There is no stenosis. At L2-L3, there is minimal facet arthropathy. There is no stenosis. At L3-L4, there is a broad-based posterior central disc protrusion superimposed on a disc bulge and left lateral predominant endplate osteophytosis. There is mild bilateral facet arthropathy. There are right hemilaminectomy changes. There is enhancement within the laminectomy decompression space likely due to scar/granulation tissue. There is hypertrophy of the left ligamentum flavum. There is no stenosis. At L4-L5, there is a broad-based posterior central disc protrusion and there is a left foraminal to extra foraminal disc protrusion. These are superimposed on a disc bulge and endplate osteophytosis. The posterior disc margin is contiguous with a complex a heterogeneously enhancing collection within the ventral epidural space posterior to the L5 vertebral body measuring 2.8 cm craniocaudally by 1.1 cm anterior posteriorly by 2.1 cm transversely. This collection is contiguous with abnormal enhancing soft tissue within the right greater than left lateral recesses and right laminotomy decompression space, suggesting scar/granulation tissue. There is a 6 mm peripherally enhancing collection along the right aspect of the spinous process at this level and 1.3 cm enhancing lesion along the left lateral disc margin at this level, with associated mild edema and enhancement within the adjacent left iliopsoas muscle. There is moderate facet arthropathy. There are right hemilaminectomy changes. There is hypertrophy of the left ligamentum flavum. There is mild bilateral foraminal stenosis with abutment of the exiting left greater than right L4 nerve roots. There is severe central canal stenosis posterior to the L5 vertebral body due to the aforementioned ventral epidural collection. At L5-S1, there is a broad-based left paracentral to lateral recess disc protrusion superimposed on a disc bulge and endplate osteophytosis. The posterior disc margin is contiguous with the aforementioned complex collection within the ventral epidural space posterior to L5, described in detail above. There is mild right facet arthropathy. There is mild bilateral foraminal stenosis. There is effacement of the left lateral recess and deviation of the traversing left S1 nerve root. IMPRESSION: 1. Heterogeneous enhancing ventral epidural collection posterior to the L5 vertebral body, measuring 2.8 x 1.1 x 2.1 cm and contributing to severe central canal stenosis at the L5 vertebral level. This collection appears contiguous with adjacent L4-L5 and L5-S1 disc protrusions as well as suspected enhancing scar/granulation tissue within the lateral recesses and a right laminotomy decompression spaces at these levels. There are also small peripherally enhancing collections along the right aspect of the L4-L5 interspinous space and lateral disc margin and there is edema and enhancement throughout the L4 and L5 vertebral segments and a small amount of the adjacent left iliopsoas muscle. The differential includes interval increase in a large disc extrusion with associated enhancing scar/granulation tissue, as well as, a ventral epidural abscess with adjacent reactive marrow or osteomyelitis. The preservation of the L4-L5 endplates does not favor discitis. The small peripherally enhancing collections within the right interspinous space and left lateral disc margin may be due to additional small abscesses. 2. Decrease in a previously demonstrated disc extrusion posterior to L4. 3. Multilevel degenerative change throughout the remainder of the lumbar spine, resulting in stenosis at the aforementioned levels. These findings are similar compared to the prior study. Electronically signed by: Lavinia Aldana MD (08/20/2017 2:20 PM) [id number]
== END | disposition home or self-care (01) ==
LOC: KCIC MRI 12:12
PROVIDERS: ATTEND Neurological Surgery
DX: M48.061 Spinal stenosis, lumbar region without neurogenic claudication (principal); M51.26 Other intervertebral disc displacement, lumbar region; G06.2 Extradural and subdural abscess, unspecified; M46.26 Osteomyelitis of vertebra, lumbar region
CPT/HCPCS: 72158; A9585

== ENCOUNTER → 2017-09-09 | Outpatient (CLI) | payer MEDICARE, OTHER ==
[~2017-09-09] MED LIST changes: +ACET500T68 PO; +ACET650S11 RC; +ALBU2.5V5 NEB; +ATOR10TA PO; +CEFA2PIG IV; +CHOL10003 PO; +CRESTOR5 MG PO; +LIDO700A39 TP; +MAGN296S9 PO; +MENT118G TP; -METO100T2 PO; +METO100T7 PO; +POLY119P4 PO; +POTA10TA5 PO; +RIFA300C3 PO; +TIZA4TAB PO
--- NOTE | 2017-09-09 15:19 | KCIC ---
MRI Lumbar Spine without and with contrast History: Lumbar osteomyelitis, low back pain Technique: Multiplanar, multi sequential pre and postcontrast MR imaging was performed of the lumbar spine. Contrast: 9 cc Gadavist Comparison: August 20, 2017 Findings: There is persistent prominent edema of the L5 vertebral body, overall somewhat greater. There is also persistent L4 vertebral body edema also overall greater. There is associated enhancement at sites of marrow edema. There is persistent prominent anterior epidural enhancement at the L5 level which is somewhat greater than previously. This in greatest dimension measures approximately 1.1 cm AP by 2.4 cm CC by 2.6 cm transverse. There is again some internal heterogeneous T2 hyperintense signal, focus does not centrally enhance on the order of 0.9 cm cc by 0.4 cm AP by 0.7 cm transverse located on the right. There is another tiny focus which is not centrally enhance more inferiorly in the right anterior epidural space 0.3 cm in size. There is somewhat increased indentation upon the ventral thecal sac with severe narrowing of the thecal sac at the level of the mid to superior aspect of L5. The is also edema of the right L5 pedicle extending to the facet articular process, lesser degree of involvement of the left L5 pedicle. Vertebral body stature is stable. There is no significant significant enhancement in the intervertebral disc spaces. There is again posterior paraspinous edema more eccentric to the right at the L4-5 level. There is also mild perivertebral edema more anteriorly. There are other foci of marrow signal change of the L2, T12, and T11 vertebral bodies probably due to hemangiomas. There is again inferior L3 Schmorl's node with associated mild edema. There is no new significant enhancement in the intervertebral disc spaces. There is again moderate to severe narrowing of the L4-5 and L5-S1 intervertebral disc spaces and to lesser degree at L3-4. L2-L3: Spinal canal and neural foramina remain adequate. L3-L4: There is again disc osteophyte complex and bulge/protrusion. There is similar minimal narrowing of the far left lateral recess. There is mild facet degenerative change and buckling of the ligamentum flavum. There is mild narrowing of the left neural foramen, right neural foramen not significantly narrowed. L4-L5: There is again broad posterior protrusion. There is again prominent abnormal epidural enhancement extending posterior to the L5 vertebral body, internal heterogeneous signal features. There is again bilateral facet degenerative change. There has been right laminectomy. There is moderate left and [id number] right neural foramina compromise as seen previously. At the intervertebral disc space level, there is fairly severe narrowing of the far lateral recesses bilaterally, limited preserved subarachnoid space, severe spinal stenosis just below the intervertebral disc space level as seen previously. L5-S1: There is again left laminectomy defect. There is again broad posterior protrusion. There is contact of the descending S1 nerve roots greater on the left as seen previously, [id number] left lateral recess stenosis. There is moderate left and moderate to severe right neural foramina compromise. There is facet degenerative change on the right. Impression: 1. There is persistent, somewhat increased prominent edema of the L4 and L5 vertebral bodies with associated enhancement which may be seen with provided history of osteomyelitis. Prominent abnormal epidural enhancement posterior to the L5 vertebral body persists likely due to phlegmon with underlying small abscesses on the right, resultant severe spinal stenosis at the level of the superior aspect of L5. 2. There is neural foramina compromise as stated. Electronically signed by: Nicanor Vargas MD (09/09/2017 3:15 PM) [id number]
== END | disposition home or self-care (01) ==
LOC: KCIC MRI 12:39
PROVIDERS: ATTEND Neurological Surgery
DX: M54.5 Low back pain (principal)
CPT/HCPCS: 72158; 82565; A9585

== ENCOUNTER → 2017-09-22 | Outpatient (CLI) | payer MEDICARE, OTHER ==
[~2017-09-22] MED LIST changes: -GADOBUTROL 10 MMOL/10 ML VIAL IV ONE
[2017-09-22 15:18] LABS: BASO % 1 % (0-3); EOS % 7 % (0-3); HEMATOCRIT 34.3 % (39.0-53.0); HEMOGLOBIN 11.4 g/dL (13.0-17.5); LYMPH # 0.9 x10^3/uL (1.0-4.8); LYMPH % 16 % (24-48); MEAN CORPUSCULAR HEMOGLOBIN 28 pg (25-35); MEAN CORPUSCULAR HGB CONC 33 g/dL (31-37); MEAN CORPUSCULAR VOLUME 83 fL (79-100); MONO % 16 % (0-9); NEUT % 60 % (31-73); PLATELET COUNT 258 x10^3/uL (140-400); RED BLOOD COUNT 4.13 x10^6/uL (4.30-5.70); RED CELL DISTRIBUTION WIDTH 15.9 % (11.5-14.5); WHITE BLOOD COUNT 5.5 x10^3/uL (4.0-11.0)
[2017-09-22 15:36] LABS: ALBUMIN 3.2 g/dL (3.4-5.0); ALBUMIN/GLOBULIN RATIO 0.8 (1.0-1.7); CALCIUM 8.7 mg/dL (8.5-10.1); CREATININE 1.2 mg/dL (0.7-1.3); GFR 59.9; POTASSIUM 3.8 mmol/L (3.5-5.1); TOTAL BILIRUBIN 0.2 mg/dL (0.2-1.0); TOTAL PROTEIN 7.3 g/dL (6.4-8.2)
== END | disposition home or self-care (01) ==
LOC: SURGPAT 14:05
PROVIDERS: ATTEND Neurological Surgery
DX: Z01.818 Encounter for other preprocedural examination (principal); M48.061 Spinal stenosis, lumbar region without neurogenic claudication; B99.8 Other infectious disease
CPT/HCPCS: 36415; 80053; 83036; 85025; 87641

== ENCOUNTER → 2017-09-23 | Outpatient (CLI) | payer MEDICARE, OTHER ==
[~2017-09-23] MED LIST changes: +METO100T2 PO; -METO100T7 PO
--- NOTE | 2017-09-23 16:26 | CARD ---
APPROVED REPORT EXAM: Two-dimensional and M-mode echocardiogram with Doppler and color Doppler. Other Information Quality : Good INDICATION Dyspnea Fatigue 2D DIMENSIONS Left Atrium(2D)3.9 (1.6-4.0cm)IVSd1.0 (0.7-1.1cm) Aortic Root(2D)3.2 (2.0-3.7cm)LVDd5.0 (3.9-5.9cm) LVOT Diameter2.1 (1.8-2.4cm)PWd0.9 (0.7-1.1cm) LVDs3.9 (2.5-4.0cm)FS (%) 22.4 % SV54.0 mlLVEF(%)40.0 (>50%) Aortic Valve AoV Peak Shekhar.134.6cm/sAoV VTI26.6cm AO Peak GR.7.2mmHgLVOT Peak Shekhar.128.9cm/s AO Mean GR.4mmHgAVA (VMAX)3.39cm2 FRED (VTI)3.30cm2 Mitral Valve MV E Flqweprk15.9cm/sMV DECEL AIEP466jv MV A Drxrbmdw531.0cm/sE/A Ratio0.9 Tricuspid Valve TR P. Xkdxkwpm602wu/sRAP EMONEMNQ4zpLf TR Peak Gr.33cvJrADEQ28sfPr LEFT VENTRICLE The left ventricle is normal size. There is normal left ventricular wall thickness. The Ejection Frac tion of the LV is 40%. There is hypokinesis in the inferoseptal wall. Transmitral Doppler flow patter n is Grade I-abnormal relaxation pattern. RIGHT VENTRICLE The right ventricle is normal size. The right ventricular systolic function is normal. ATRIA The left atrium size is normal. The right atrium size is normal. The interatrial septum is intact wit h no evidence for an atrial septal defect or patent foramen ovale as noted on 2-D or Doppler imaging. AORTIC VALVE The aortic valve is calcified but opens well. Doppler and Color Flow revealed no significant aortic r egurgitation. There is no significant aortic valvular stenosis. MITRAL VALVE The mitral valve is calcified but opens well. Mitral annular calcification is mild. There is no evide nce of mitral valve prolapse. There is no mitral valve stenosis. Doppler and Color-flow revealed trac e mitral regurgitation. TRICUSPID VALVE The tricuspid valve is normal in structure and function. Doppler and Color Flow revealed physiologica l tricuspid regurgitation. The PA pressure was estimated at 18 mmHg. There is no tricuspid valve sten osis. PULMONIC VALVE The pulmonary valve is normal in structure and function. Doppler and Color Flow revealed no pulmonic valvular regurgitation. There is no pulmonic valvular stenosis. GREAT VESSELS The aortic root is normal in size. The ascending aorta is normal in size. The IVC is normal in size a nd collapses >50% with inspiration. PERICARDIAL EFFUSION There is no evidence of significant pericardial effusion. Critical Notification Critical Value: No <Conclusion> The Ejection Fraction of the LV is 40%. Transmitral Doppler flow pattern is Grade I-abnormal relaxation pattern. The left atrium size is normal. The right atrium size is normal. The aortic valve is calcified but opens well. The mitral valve is calcified but opens well. Mitral annular calcification is mild. Doppler and Color-flow revealed trace mitral regurgitation. Doppler and Color Flow revealed physiological tricuspid regurgitation. The PA pressure was estimated at 18 mmHg. The pulmonary valve is normal in structure and function. There is no evidence of significant pericardial effusion.
== END | disposition home or self-care (01) ==
LOC: ECHO 09:30
PROVIDERS: ATTEND Internal Medicine Cardiovascular Disease
DX: I07.1 Rheumatic tricuspid insufficiency (principal); R06.00 Dyspnea, unspecified; R53.83 Other fatigue
CPT/HCPCS: 93306

== ENCOUNTER → 2017-12-23 | Outpatient (CLI) | payer MEDICARE, OTHER ==
[2017-12-23 13:12] LABS: ISTAT CREATININE 1.2 mg/dL (0.7-1.3)
[2017-12-23] MEDS: GADOBUTROL 10 MMOL/10 ML VIAL IV (13:37)
== END | disposition home or self-care (01) ==
LOC: KCIC MRI 12:12
DX: M86.9 Osteomyelitis, unspecified (principal); M46.46 Discitis, unspecified, lumbar region; M43.16 Spondylolisthesis, lumbar region; M48.07 Spinal stenosis, lumbosacral region; M25.78 Osteophyte, vertebrae; M43.5X6 Other recurrent vertebral dislocation, lumbar region; R60.0 Localized edema
CPT/HCPCS: 72158; 82565; A9585

== ENCOUNTER → 2018-02-23 | Outpatient (CLI) | payer MEDICARE, OTHER ==
[~2018-02-23] MED LIST changes: -ACET500T68 PO; -ACET650S11 RC; -ALBU2.5V5 NEB; -ATOR10TA PO; -CEFA2PIG IV; -CHOL10003 PO; -CITA20TA5 PO; -CRESTOR20 MG PO; -CRESTOR5 MG PO; -DICL75TA PO; -DOCU-109 PO; -FISH1CAP PO; -FLUT50DI IH; -GABA-585 PO; -GLIM1TAB2 PO; -GLUC100018 PO; -GLUC1TAB26 PO; -HYDR-2762 PO; -HYDR25TA9 PO; +IOHEXOL 180 MG/ML 10 ML VIAL.; -LIDO700A39 TP; -LOSA100T6 PO; -LOVA20TA2 PO; -MAGN296S9 PO; -MENT118G TP; -METF-620 PO; -METF100P4 MC; -METF500T4 PO; -METH750T2 PO; -METO100T2 PO; -MULT1TAB52 PO; -NIFE90TA9 PO; -NITR0.4T SL; -OXYC-323 PO; -POLY119P4 PO; -POTA10TA12 PO; -POTA10TA5 PO; -RIFA300C3 PO; -SILD100T PO; -TAMS0.4C2 PO; -TIZA4TAB PO; -VITA1TAB19 PO; +methylPREDNISolone ACETATE 40 MG/ML VIAL.; +methylPREDNISolone ACETATE 80 MG/ML VIAL.
== END | disposition home or self-care (01) ==
LOC: PNCL 14:30
DX: M48.061 Spinal stenosis, lumbar region without neurogenic claudication (principal); M54.16 Radiculopathy, lumbar region; M96.1 Postlaminectomy syndrome, not elsewhere classified; Z98.890 Other specified postprocedural states; I25.10 Atherosclerotic heart disease of native coronary artery without angina pectoris; Z95.5 Presence of coronary angioplasty implant and graft; E78.00 Pure hypercholesterolemia, unspecified; I10 Essential (primary) hypertension; Z86.010 Personal history of colon polyps; Z98.52 Vasectomy status; M19.90 Unspecified osteoarthritis, unspecified site; E11.9 Type 2 diabetes mellitus without complications; F41.9 Anxiety disorder, unspecified; Z87.891 Personal history of nicotine dependence; Z85.820 Personal history of malignant melanoma of skin; Z86.14 Personal history of Methicillin resistant Staphylococcus aureus infection; Z82.49 Family history of ischemic heart disease and other diseases of the circulatory system
CPT/HCPCS: 62323; J1030; J1040; Q9965

== ENCOUNTER → 2018-06-22 | Outpatient (CLI) | payer MEDICARE ==
[2017-09-29 15:00] VITALS: BP 140/86
[~2018-06-22] MED LIST changes: +ACET500T68 PO; +ACET650S11 RC; +ALBU2.5V5 NEB; +ATOR10TA PO; +CEFA2PIG IV; +CEPH500C PO; +CHOL10003 PO; +CITA20TA6 PO; +CRESTOR20 MG PO; +CRESTOR5 MG PO; +DICL75TA PO; +DOCU-109 PO; +DONE5TAB7 PO; +FENO54TA PO; +FISH1CAP PO; +FLUT50DI IH; +GABA-585 PO; +GLIM1TAB2 PO; +GLIM2TAB2 PO; +GLUC100018 PO; +GLUC1TAB26 PO; +HYDR-2762 PO; +HYDR12.58 PO; +HYDR25TA9 PO; -IOHEXOL 180 MG/ML 10 ML VIAL.; +LACT1CAP8 PO; +LIDO700A39 TP; +LOSA100T6 PO; +LOVA20TA2 PO; +MAGN296S9 PO; +MENT118G TP; +METF10003 PO; +METF100P4 MC; +METF500T5 PO; +METH750T2 PO; +METO100T7 PO; +METO50TA6 PO; +MULT1TAB52 PO; +NIFE90TA9 PO; +NITR0.4T SL; +OXYC-323 PO; +POLY119P4 PO; +POTA10TA12 PO; +POTA20TA82 PO; +RIFA300C3 PO; +SILD100T PO; +SILD50TA PO; +TAMS0.4C2 PO; +TIZA4TAB PO; +TRAM50TA PO; +VITA1CAP PO; +VITA1TAB19 PO; -methylPREDNISolone ACETATE 40 MG/ML VIAL.; -methylPREDNISolone ACETATE 80 MG/ML VIAL.
--- NOTE | 2018-06-22 10:46 | KCIC ---
ABDOMEN LTD dated 06/22/2018 10:00 AM. Comparison: None Clinical Indication: History of brain malignancy. Possible metastatic disease. Findings: The liver is homogeneous in echotexture with no evidence of focal hepatic mass. Intrahepatic and extra hepatic biliary ducts are normal in caliber. The common bile duct measures 3 mm. The gallbladder is normal in size and echogenicity without gallbladder wall thickening or pericholecystic fluid. No gallstones are seen. Right kidney measures 12.6 cm in length without hydronephrosis. Left kidney was not imaged The pancreas is not well visualized. The portal vein is somewhat prominent, nonspecific. Limited visualized portions of aorta and IVC unremarkable. IMPRESSION: 1. No acute sonographic abnormality. 2. Limited evaluation of the pancreas. Electronically signed by: Evangelist Britton MD (06/22/2018 10:43 AM) [facility]
== END | disposition home or self-care (01) ==
LOC: KCIC US 09:30
PROVIDERS: ATTEND Ophthalmology
DX: C69.31 Malignant neoplasm of right choroid (principal); I25.2 Old myocardial infarction; I11.0 Hypertensive heart disease with heart failure; E11.9 Type 2 diabetes mellitus without complications; E78.00 Pure hypercholesterolemia, unspecified; I25.10 Atherosclerotic heart disease of native coronary artery without angina pectoris; Z85.841 Personal history of malignant neoplasm of brain; Z95.5 Presence of coronary angioplasty implant and graft; Z86.19 Personal history of other infectious and parasitic diseases; Z87.891 Personal history of nicotine dependence; Z86.14 Personal history of Methicillin resistant Staphylococcus aureus infection; Z88.0 Allergy status to penicillin; Z88.8 Allergy status to other drugs, medicaments and biological substances; Z85.820 Personal history of malignant melanoma of skin; Z92.21 Personal history of antineoplastic chemotherapy; Z82.49 Family history of ischemic heart disease and other diseases of the circulatory system
CPT/HCPCS: 76705

== ENCOUNTER → 2018-06-26 | Outpatient (CLI) | payer MEDICARE ==
[2017-09-29 15:00] VITALS: BP 140/86
[2018-06-26 12:08] LABS: ALBUMIN 4.2 g/dL (3.4-5.0); DIRECT BILIRUBIN 0.1 mg/dL (0.0-0.2); TOTAL BILIRUBIN 0.4 mg/dL (0.2-1.0); TOTAL PROTEIN 7.4 g/dL (6.4-8.2)
== END | disposition home or self-care (01) ==
LOC: LAB 11:29
PROVIDERS: ATTEND Ophthalmology
DX: C69.31 Malignant neoplasm of right choroid (principal); I25.2 Old myocardial infarction; I11.0 Hypertensive heart disease with heart failure; I50.9 Heart failure, unspecified; E11.9 Type 2 diabetes mellitus without complications; E78.5 Hyperlipidemia, unspecified; E78.00 Pure hypercholesterolemia, unspecified; E87.6 Hypokalemia; Z88.0 Allergy status to penicillin; Z86.19 Personal history of other infectious and parasitic diseases; Z87.891 Personal history of nicotine dependence; Z85.841 Personal history of malignant neoplasm of brain; Z85.820 Personal history of malignant melanoma of skin; Z92.3 Personal history of irradiation; Z86.010 Personal history of colon polyps; Z82.49 Family history of ischemic heart disease and other diseases of the circulatory system
CPT/HCPCS: 36415; 80076; 82977

== ENCOUNTER 2019-09-03 16:51 | Emergency (ER) | payer MEDICARE ==
[~2019-09-03] VITALS: Ht 177.8 cm; Wt 95.3 kg
[~2019-09-03 16:51] MED LIST changes: -GLIM1TAB2 PO; +GLIM1TAB3 PO; -GLIM2TAB2 PO; +GLIM2TAB3 PO; +HYDR-2145 PO; -HYDR-2762 PO; +HYDR-2765 PO; -HYDR25TA9 PO; +LIDO700A21 TP; -LIDO700A39 TP; +LOSA100T14 PO; -LOSA100T6 PO; -METF10003 PO; +METF10007 PO; +METF500T16 PO; -METF500T5 PO; -NITR0.4T SL; +NITR0.4T24 SL; -OXYC-323 PO; +OXYC1TAB15 PO; -TIZA4TAB PO; +TIZA4TAB2 PO
--- NOTE | 2019-09-03 17:09 | PHYS DOC ---
Past Medical History Past Medical History: Diabetes-Type II, High Cholesterol, Hypertension, HI, MRSA, Other Additional Past Medical Histor: BLIND IN RIGHT EYE, CANCER BEHIND R EYE Past Surgical History: Other Additional Past Surgical Histo: CARDIAC STENT, LOWER BACK SURGERY, HERNIA, Alcohol Use: Rarely Drug Use: None Adult General Chief Complaint Chief Complaint: LOWEREXTREMITY INJURY HPI HPI Patient is a 74 year old male who presents with was in [place] walking in a parking lot when he tripped and he fell. Patient has a left knee abrasion. Bleeding controlled. No signs of infection. Patient rates his pain a 3 out of 10. Patient is able to ambulate using his cane and can bear weight on the extremity. Review of Systems Review of Systems Musculoskeletal: Denies back pain. Left knee joint pain [] Integument: Left knee abrasion. Denies rash or skin lesions [] All other systems were reviewed and found to be within normal limits, except as documented in this note. Current Medications Current Medications Current Medications Medications (Trade) Dose Ordered Sig/Kevan Start Time Stop Time Status Last Admin Dose Admin Diphtheria/ Tetanus/Acell Pertussis (Boostrix) 0.5 ml ONCE ONCE 09/03/19 17:15 09/03/19 17:16 DC Neomycin/ Polymyxin/ Bacitracin (Triple Antibiotic Ointment) 1 pkt 1X ONCE 09/03/19 17:15 09/03/19 17:16 DC Allergies Allergies Allergies Coded Allergies Type Severity Reaction Last Updated Verified Iodinated Contrast- Oral and IV Dye Allergy Severe 09/26/17 Yes Penicillins Allergy Intermediate 09/26/17 Yes tomato Allergy Intermediate 09/26/17 Yes I S O L A T I O N *CONTACT* Allergy Unknown 09/26/17 Yes simvastatin Adverse Reaction Mild 09/26/17 Yes Physical Exam Physical Exam Constitutional: Well developed, well nourished, no acute distress, non-toxic appearance. [] Skin: Left knee abrasion. Warm, dry, no erythema, no rash. [] Back: No tenderness, no CVA tenderness. [] Extremities: No tenderness, no cyanosis, no clubbing, ROM intact, no edema. [] Neurologic: Alert and oriented X 3, normal motor function, normal sensory function, no focal deficits noted. [] Psychologic: Affect normal, judgement normal, mood normal. [] Current Patient Data Vital Signs Vital Signs Date Time Temp Pulse Resp B/P (MAP) Pulse Ox O2 Delivery O2 Flow Rate FiO2 09/03/19 16:55 98.0 63 18 158/77 (104) 98 Room Air 98.0 EKG EKG [] Radiology/Procedures Radiology/Procedures [] Impressions: [facility] [address] [place] [address] IMAGING REPORT Signed PATIENT: SWATI SAUER RACCOUNT: [id number] : 1945 LOCATION: ER AGE: 74 SEX: M EXAM STATUS: PRE ER ORD. PHYSICIAN: PAL NJ APRN REASON: Left knee pain and abrasion, fall PROCEDURE: KNEE LEFT 4V Examination: KNEE LEFT 4V History: Left knee pain, abrasion injury. Comparison/Correlation: None Findings: Total of 4 images of the left knee were obtained. Nonspecific curvilinear calcific density is noted medial to the distal femoral metaphyseal region within soft tissues. Joint spaces are normal. No acute fracture or bony destruction. Minimal spurring about the patella noted. Vascular calcification is present. Punctate densities are present within the soft tissues superficially at the proximal tibial metaphyseal level soft tissue swelling at this site appears be present. Impression: No suspicious acute process. Soft tissue prominence at the proximal tibial metaphyseal level anteriorly. Radiopaque densities are present and of indeterminate significance at this site. Correlate for foreign bodies. Electronically signed by: Thom Pérez MD (09/03/2019 6:02 PM) [facility] DICTATED and SIGNED BY: THOM PÉREZ MD DATE: 09/03/19 180 Course & Med Decision Making Course & Med Decision Making No tenderness or bruising or swelling to the left knee. Patient is able to extend the leg and bend the leg fully. No joint laxity. No deformity or bruising seen. Patient has an abrasion to the left knee. Patient denies any numbness or tingling. Popliteal pulses are present. Ambulatory with steady gait using his cane. Patient denies hitting his head or having back pain or neck pain. Patient denies LOC. Patient denies shortness of breath, chest pain, numbness or tingling, dizziness, visual changes, weakness. Abrasion is cleaned with Chlorhexidine and no Foreign bodies seen, Antibiotic ointment placed and wound dressed. Dragon Disclaimer Dragon Disclaimer This electronic medical record was generated, in whole or in part, using a voice recognition dictation system. Departure Departure Impression: Primary Impression: Fall Additional Impressions: Knee pain Abrasion Disposition: HOME, SELF-CARE Condition: STABLE Referrals: FEDERICO WISE MD (PCP) Patient Instructions: Abrasion, Hwbj-vs-Vavm Additional Instructions: Follow up with primary care provider. Keep area clean and dressed. Scripts Cephalexin (KEFLEX) 500 Mg Capsule 1 CAP PO TID for 7 Days, #21 CAP 0 Refills Prov: PAL NJ PROCESS PUMPER 09/03/19 Problem Qualifiers Primary Impression: Fall Encounter type: initial encounter Qualified Codes: W19.XXXA - Unspecified fall, initial encounter Additional Impressions: Knee pain Chronicity: acute Laterality: left Qualified Codes: M25.562 - Pain in left knee PAL NJ PROCESS PUMPER Sep 03, 2019 17:09
[2019-09-03] MEDS ORDERED: NEOMY/BACITR/POLYMYXIN OINT PACKET. TP ONE (17:15)
[2019-09-03] MEDS ORDERED: DIPHTH,PERTUSS(ACELL),TET TOX 0.5 ML DISP.SYRIN. VAX IM ONE (17:15)
--- NOTE | 2019-09-03 18:05 | RAD ---
Examination: KNEE LEFT 4V History: Left knee pain, abrasion injury. Comparison/Correlation: None Findings: Total of 4 images of the left knee were obtained. Nonspecific curvilinear calcific density is noted medial to the distal femoral metaphyseal region within soft tissues. Joint spaces are normal. No acute fracture or bony destruction. Minimal spurring about the patella noted. Vascular calcification is present. Punctate densities are present within the soft tissues superficially at the proximal tibial metaphyseal level soft tissue swelling at this site appears be present. Impression: No suspicious acute process. Soft tissue prominence at the proximal tibial metaphyseal level anteriorly. Radiopaque densities are present and of indeterminate significance at this site. Correlate for foreign bodies. Electronically signed by: Thom Hilliard MD (09/03/2019 6:02 PM) [facility]
[2019-09-03] MEDS ORDERED: CEPH-264 PO (18:15)
[2019-09-03 18:31] VITALS: BP 170/92
== END 2019-09-03 18:31 | disposition home or self-care (01) ==
LOC: ER 16:51
DX: S80.212A Abrasion, left knee, initial encounter (principal); E11.9 Type 2 diabetes mellitus without complications; E78.00 Pure hypercholesterolemia, unspecified; I10 Essential (primary) hypertension; I25.2 Old myocardial infarction; Z86.14 Personal history of Methicillin resistant Staphylococcus aureus infection; Z91.041 Radiographic dye allergy status; Z88.0 Allergy status to penicillin; Z91.018 Allergy to other foods; Z88.8 Allergy status to other drugs, medicaments and biological substances; W01.0XXA Fall on same level from slipping, tripping and stumbling without subsequent striking against object, initial encounter; Y93.89 Activity, other specified; Y92.89 Other specified places as the place of occurrence of the external cause; Y99.8 Other external cause status
CPT/HCPCS: 73564; 90471; 90715; 99284-25

== ENCOUNTER → 2021-01-30 | Outpatient (CLI) | payer MEDICARE ==
[~2021-01-30] MED LIST changes: +CEPH-264 PO; -GLIM1TAB3 PO; +GLIM1TAB7 PO; -GLIM2TAB3 PO; +GLIM2TAB7 PO; +MAGN296S68 PO; -MAGN296S9 PO; +METH-562 PO; -METH750T2 PO; +MULT-445 PO; -MULT1TAB52 PO; +NIFE90TA49 PO; -NIFE90TA9 PO; +POTA20TA4 PO; -POTA20TA82 PO; +POTASSIUM CHLO10 ME1 PO
--- NOTE | 2021-01-30 17:03 | CARD ---
MR#: [id number] Date of Study: 01/30/2021 Ordering Physician: PRIETO MOE, Referring Physician: PRIETO MOE, Tech: Bonnie Sarabia [facility] APPROVED REPORT EXAM: Two-dimensional and M-mode echocardiogram with Doppler and color Doppler. Other Information Quality : AverageHR: 54bpm Rhythm : NSR INDICATION Murmur RISK FACTORS Hypertension 2D DIMENSIONS Left Atrium(2D)3.8 (1.6-4.0cm)IVSd0.9 (0.7-1.1cm) Aortic Root(2D)3.5 (2.0-3.7cm)LVDd4.8 (3.9-5.9cm) LVOT Diameter2.2 (1.8-2.4cm)PWd0.9 (0.7-1.1cm) LVDs2.3 (2.5-4.0cm)FS (%) 51.8 % SV90.1 ml Mitral Valve MV E Dgpuluxq268.5cm/sMV DECEL KTSP330zg MV A Snnzawxv845.0cm/sE/A Ratio1.1 Pulmonary Valve PV Peak Tfpocpdu38.7cm/s Tricuspid Valve TR P. Ekabsgcb254xd/sTR Peak Gr.18mmHg LEFT VENTRICLE The left ventricle is normal size. There is normal left ventricular wall thickness. The left ventricu lar systolic function is normal and the ejection fraction is within normal range. Estimated ejection fraction 55-60%. There is normal LV segmental wall motion. The left ventricular diastolic function an d filling is normal for age. RIGHT VENTRICLE The right ventricle is normal size. There is normal right ventricular wall thickness. The right ventr icular systolic function is normal. ATRIA The left atrium size is normal. The right atrium size is normal. The interatrial septum is intact wit h no evidence for an atrial septal defect or patent foramen ovale as noted on 2-D or Doppler imaging. AORTIC VALVE The aortic valve is normal in structure and function. Doppler and Color Flow revealed trace to mild a ortic regurgitation. There is no significant aortic valvular stenosis. MITRAL VALVE The mitral valve is normal in structure and function. There is no evidence of mitral valve prolapse. There is no mitral valve stenosis. Doppler and Color-flow revealed mild mitral regurgitation. TRICUSPID VALVE The tricuspid valve is normal in structure and function. Doppler and Color Flow revealed trace tricus pid regurgitation. There is no tricuspid valve stenosis. PULMONIC VALVE The pulmonary valve is normal in structure and function. Doppler and Color Flow revealed no pulmonic valvular regurgitation. GREAT VESSELS The aortic root is normal in size. The IVC is normal in size and collapses >50% with inspiration. PERICARDIAL EFFUSION There is no evidence of significant pericardial effusion. Critical Notification Critical Value: No <Conclusion> The left ventricle is normal size. The left ventricular systolic function is normal and the ejection fraction is within normal range. Estimated ejection fraction 55-60%. Doppler and Color Flow revealed trace to mild aortic regurgitation. There is no significant aortic valvular stenosis. Doppler and Color-flow revealed mild mitral regurgitation. Doppler and Color Flow revealed trace tricuspid regurgitation. Signed by : Prieto Moe MD Electronically Approved : 01/30/2021 17:03:11
== END ==
LOC: ECHO 13:21
PROVIDERS: ATTEND Internal Medicine Cardiovascular Disease
DX: I08.0 Rheumatic disorders of both mitral and aortic valves (principal); I25.5 Ischemic cardiomyopathy
CPT/HCPCS: 93306

== ENCOUNTER → 2021-07-10 | Outpatient (CLI) | payer MEDICARE ==
[~2021-07-10] MED LIST changes: +REGADENOSON 0.4 MG/5 ML DISP.SYRIN. IV ONE
--- NOTE | 2021-07-10 15:35 | RAD ---
MR#: [id number] Date of Study: 07/10/2021 Ordering Physician: SAMARIA HIDALGO, Referring Physician: SAMSON FAJARDO Tech: ALYSSIA Rabago APPROVED REPORT Test Type: Pharmacological Stress Nurse/Tech: DEANNA HOUSTON Test Indications: CAD Cardiac History: CAD, 3 STENTS- SEE EMR Medications: SEE EMR Medical History: SEE EMR Resting ECG: SB Resting Heart Rate: 46 bpm Resting Blood Pressure: 120/66mmHg Pretest Chest Pain: No chest pain Nurse/Tech Notes S1,S2, LUNGS CTA, DENIED CP OR SOA. VSS. Consent: The procedure was explained to the patient in lay terms. Informed consent was witnessed. Sumanth eout was entered into etouches. History and Stress Test performed by RT Caden (R) (N) Pharm. Details Pharmacologic stress testing was performed using 0.4mg per 5ml of regadenoson given intravenously ove r 7-10 seconds. Stress Symptoms PT DIDN'T COMPLAIN OF ANY SOA OR CHEST PAIN DURING TESTING. VSS. PT TOLERATED TESTING WELL. POST EXERCISE Reason for Termination: Infusion complete Max HR: 61 bpm Max Blood Pressure: 120/66mmHg Blood Pressure response to exercise: Normal blood pressure response during stress. Heart Rate response to exercise: WNL Chest Pain: No. Arrhythmia: No. NO SIGNIFICANT CHANGES FROM BASELINE EKG ST Change: No. INTERPRETATION Stress EKG Conclusion: No evidence of stress induced EKG changes. Imaging Protocol IMAGE PROTOCOL: Rest Tc-99m/stress Tc-99m 1 day Rest: Stress: Viability: Radiopharm.Tc99m UphiscxmeYd58d Sestamibi Dose10.5mCi 32mCi Duration 15min. 13min. Img Date 07/10/2021 07/10/2021 Inj-Img Ldfq31uhs. 60min. Rest Admin Site:IV - Right AntecubitalAdministrator:ALYSSIA Rabago Stress Admin Site: IV - Right AntecubitalAdministrator: RT Caden (R)(N) STRESS DATA End Diast. Vol.126.0mlLVEDV index BSA58.0ml End Syst. Vol.57.0mlLVESV index BSA26.0ml Myocardial Buod826.0gEject. Lzinjkzp10.0% Stress Scores Regional WT1.00Summed WT18.00 Regional WM0.00Summed WM7.00 LV Perfusion There is a large sized, basal to distal inferolateral FIXED defect suggestive of prior infarct withou t active ischemia. Wall Motion Mild inferolateral hypokinesis. LV Perf. Quant 17 Seg. SSS8.00 17 Seg. SRS8.00 17 Seg. SDS2.00 Stress Defect Extent (% LAD)0.00Rest Defect Extent (% LAD)3.10Rev. Defect Extent (% LAD)0.00 Stress Defect Extent (% LCX) 50.00Rest Defect Extent (% LCX)33.80Rev. Defect Extent (% LCX)20.00 Stress Defect Extent (% RCA)8.90Rest Defect Extent (% RCA)13.30Rev. Defect Extent (% RCA)0.00 Stress Defect Extent (% KIAN)14.60Rest Defect Extent (% KIAN)16.10Rev. Defect Extent (% KIAN)3.70 Other Information Quality:Average Risk Assessment: Moderate Risk Conclusion 1. No evidence of stress induced EKG changes. 2. Fixed inferolateral defect suggestive of prior infarct without active ischemia. 3. Normal LV function. EF 55% 4. Moderate risk for future CV events. Signed by : Chidi Zimmerman, Electronically Approved : 07/10/2021 15:35:26
== END ==
LOC: NM 09:18
PROVIDERS: ATTEND Internal Medicine Cardiovascular Disease
DX: I25.10 Atherosclerotic heart disease of native coronary artery without angina pectoris (principal)
CPT/HCPCS: 78452; 93017; A9500; J2785